=== PATIENT | female | born 1950 | race Caucasian/White ===

== ENCOUNTER → 2016-06-04 | Outpatient (REF) | payer MEDICARE, MEDICAID ==
[~2016-06-04] MED LIST: BACL10TA2 PO; BACT800T5 PO; CALCTAB41 PO; COLA100C PO; COUM1TAB17 PO; COUM2.5T11 PO; CRES20TA PO; ERYT5OPO OD; FURO40TA2 PO; LEVO500T32 PO; LISI-538 PO; METO-346 PO; METO25TAB PO; RAMI10CA PO; ROPI0.25 PO; ROSU10TA PO; SERT50TA; TRAM50TA2 PO; VALA1TAB PO; VITA-122 PO; ZOLO100T PO
[2016-06-04 11:32] LABS: BASO % 0.5 % (0.0-1.0); EOS # 0.2 K/mm3 (0.0-0.50); EOS % 2.6 % (0.0-3.0); LARGE UNSTAINED CELL # 0.1 K/mm3 (0.0-0.4); LARGE UNSTAINED CELL % 1.6 % (0.0-4.0); LYMPH # 1.6 K/mm3 (1.5-4.5); LYMPH % 24.7 % (24.0-44.0); MEAN CORPUSCULAR HEMOGLOBIN 28.6 pg (27.0-33.0); MEAN CORPUSCULAR VOLUME 89.2 fl (80.0-96.0); MONO # 0.3 K/mm3 (0.0-0.8); MONO % 4.9 % (0.0-5.0); NEUTROPHILS # 4.3 K/mm3 (1.8-7.7); NEUTROPHILS % 65.8 % (36.0-66.0); PLATELET COUNT, AUTOMATED 321 k/mm3 (150-450); RED CELL DISTRIBUTION WIDTH 13.7 % (11.5-14.5); WHITE BLOOD COUNT 6.5 K/mm3 (4.0-10.0)
[2016-06-04 11:39] LABS: INR 2.66
[2016-06-04 11:54] LABS: ANION GAP 10 MEQ/L (8-16); BLOOD UREA NITROGEN 20 MG/DL (7-18); CALCIUM LEVEL 8.4 MG/DL (8.8-10.2); CARBON DIOXIDE LEVEL 28 MEQ/L (21-32); CHLORIDE LEVEL 104 MEQ/L (98-107); CREATININE FOR GFR 0.91 MG/DL (0.55-1.02); GLOMERULAR FILTRATION RATE > 60.0 (>45); GLUCOSE, FASTING 143 MG/DL (80-110); POTASSIUM SERUM 4.1 MEQ/L (3.5-5.1); SODIUM LEVEL 142 MEQ/L (136-145)
== END ==
LOC: M LAB REF 11:03
PROVIDERS: ATTEND Surgery Vascular Surgery
DX: R94.4 Abnormal results of kidney function studies (principal)

== ENCOUNTER → 2016-06-16 | Outpatient (REF) | payer MEDICARE, MEDICAID | LOC: M LAB REF 16:39 | PROVIDERS: ATTEND Surgery | DX: I87.311 Chronic venous hypertension (idiopathic) with ulcer of right lower extremity (principal) ==

== ENCOUNTER → 2016-07-30 | Outpatient (CLI) | payer MEDICARE, MEDICAID ==
[~2016-07-30] MED LIST changes: -COLA100C PO; +COLA100C3 PO; +CRES10TA32 PO; +GASTROGRAFIN SOLUTION 30ML (Q9963) As Ordered ONE; +ISOVUE-370 76% 100ML VIAL (Q9967) As Ordered ONE; -ROSU10TA PO
--- NOTE | 2016-07-30 15:21 | REP ---
REASON: History of neoplasm left kidney. COMPARISON: None. CONTRAST: 100 mL Isovue 370. In the left lung base there is a 6 mm sized nodule. There are no pleural or pericardial effusions. There is cardiomegaly. The precontrast enhanced portion of the exam shows hepatic and splenic densities to within normal limits. There is what appears to be a staghorn calculus in the markedly atrophic right kidney. There are no choleliths or left nephroliths. There are no proximal ureteroliths. The contrast enhanced portion of the examination shows the liver, gallbladder, spleen, pancreas, adrenal glands, and left kidney to be within normal limits. The right kidney is markedly atrophic and arising from the posterior cortex of the interpolar region. There is a 1.7 x 2 x 1.4 cm sized irregularly enhancing nodule. The abdominal aorta and paraaortic regions are within normal limits. The bowel loops and their mesenteries are within normal limits. No free fluid or free air is seen in the abdomen. CT PELVIS: The bowel loops and their mesenteries are within normal limits. There is no evidence of a pelvic mass or adenopathy. There is no free pelvic fluid or air. Bone window technique throughout the exam shows the osseous structures to be within normal limits for the patient's age. IMPRESSION: 1. Irregularly enhancing right renal nodule as described above suspicious for neoplasm. 2. Other findings involving the right kidney as described above. 3. There is a nodule in the left lower lobe as described above, however, review of previous CT of the chest of 11/02/2012 from [facility] shows this nodule to be completely stable. According to the revised Fleischner's Society criteria yearly CT screening is recommended provided the patient's risk factors are high. 4. Other findings as described above. Signed by Yeison French DO 07/30/2016 03:37 P
== END ==
LOC: M RAD 10:34
PROVIDERS: ATTEND Internal Medicine Nephrology
DX: D41.02 Neoplasm of uncertain behavior of left kidney (principal); R91.8 Other nonspecific abnormal finding of lung field
CPT/HCPCS: 74178; Q9963; Q9967

== ENCOUNTER → 2016-09-11 | Outpatient (CLI) | payer MEDICARE, MEDICAID ==
[~2016-09-11] MED LIST changes: +ASPI325T PO; -GASTROGRAFIN SOLUTION 30ML (Q9963) As Ordered ONE; -ISOVUE-370 76% 100ML VIAL (Q9967) As Ordered ONE; +VITA-121 PO; +VITA-130 PO
--- NOTE | 2016-09-11 15:43 | REP ---
RIGHT LOWER EXTREMITY DUPLEX DOPPLER VENOUS ULTRASOUND WITH EVALUATION FOR VENOUS REFLUX: Real-time sonographic compression and duplex Doppler interrogation of the right lower extremity deep vein system is performed. The right common femoral, superficial femoral, and popliteal veins are fully compressible with transducer pressure and demonstrate normal spontaneous and phasic flow without evidence of deep venous thrombosis. Multiple lymph nodes are seen in the right inguinal region, largest measuring 3.5 x 0.6 x 2.5 cm. Bandaging material is present over the right calf. Evaluation for venous reflux demonstrates no reflux in the common femoral, superficial femoral, or popliteal veins. There is no reflux in the greater saphenous vein centrally at the saphenofemoral junction, the vessel meauring 6 mm in diameter. Mid to distal greater saphenous vein has been previously removed. There is no reflux in the lesser saphenous vein which measures 2 mm. Signed by Tiburcio Infante MD 09/11/2016 04:46 P
== END ==
LOC: M RAD 12:14
PROVIDERS: ATTEND Surgery
DX: I87.311 Chronic venous hypertension (idiopathic) with ulcer of right lower extremity (principal)

== ENCOUNTER 2016-09-15 09:21 | Inpatient (IN) | payer MEDICARE, MEDICAID ==
[~2016-09-15] VITALS: Ht 152.4 cm; Wt 100.7 kg
[~2016-09-15 09:21] MED LIST changes: -ASPI325T PO; -COLA100C3 PO; +COLA100C5 PO; -COUM2.5T11 PO; +COUM2.5T17 PO; +LEVO500T3 PO; -LEVO500T32 PO; -VALA1TAB PO; +VALA1TAB2 PO; -VITA-121 PO; -VITA-130 PO
[2016-09-15 10:18] LABS: INR 2.86
[2016-09-15] MEDS ORDERED: MIDAZOLAM INJ 2 MG/2 ML VIAL (J2250) As Ordered ONE ×2 (10:45→12:18)
[2016-09-15] MEDS ORDERED: fentaNYL 100 MCG/2 ML INJECTION (J3010) As Ordered ONE ×2 (10:46→12:18)
[2016-09-15] MEDS ORDERED: HEPARIN 1,000 UNITS/ML 10ML VIAL (FOR RADIOLOGY& DIALYSIS ONLY) As Ordered ONE (10:47)
[2016-09-15] MEDS ORDERED: ISOVUE-300 61% 50ML VIAL (Q9967) As Ordered ONE (10:47)
[2016-09-15] MEDS ORDERED: PHYTONADIONE 10MG/ML INJECTION (J3430) IV ONE (12:00)
[2016-09-15] MEDS ORDERED: MORPHINE 10 MG/ML 1ML VIAL As Ordered ONE (12:53)
[2016-09-15] MEDS ORDERED: ACETAMINOPHEN TAB 650MG DOSE (2X325MG) PO PRN (13:15)
[2016-09-15] MEDS ORDERED: MOM 30ML SUSPENSION UDC PO PRN (13:15)
[2016-09-15] MEDS ORDERED: PROMETHAZINE INJ 25 MG/ML VIAL (J2550) IV PRN (13:15)
[2016-09-15] MEDS ORDERED: BISACODYL 10 MG SUPP PR PRN (13:15)
[2016-09-15 13:58] LABS: BASO % 0.3 % (0.0-1.0); EOS # 0.1 K/mm3 (0.0-0.50); EOS % 1.9 % (0.0-3.0); LARGE UNSTAINED CELL # 0.1 K/mm3 (0.0-0.4); LARGE UNSTAINED CELL % 1.3 % (0.0-4.0); LYMPH # 1.7 K/mm3 (1.5-4.5); LYMPH % 20.9 % (24.0-44.0); MEAN CORPUSCULAR HEMOGLOBIN 26.5 pg (27.0-33.0); MEAN CORPUSCULAR HGB CONC 31.2 g/dl (32.0-36.5); MEAN CORPUSCULAR VOLUME 84.8 fl (80.0-96.0); MONO # 0.4 K/mm3 (0.0-0.8); MONO % 5.6 % (0.0-5.0); NEUTROPHILS # 5.3 K/mm3 (1.8-7.7); PLATELET COUNT, AUTOMATED 485 k/mm3 (150-450); RED CELL DISTRIBUTION WIDTH 13.8 % (11.5-14.5); WHITE BLOOD COUNT 7.6 K/mm3 (4.0-10.0)
[2016-09-15] MEDS ORDERED: NALBUPHINE HCL 10 MG/ML AMP (J2300) IV PRN (14:00)
[2016-09-15] MEDS ORDERED: MORPHINE 1MG/ML IN 0.9% NACL 100ML IV BAG IV PRN (14:00)
[2016-09-15] MEDS ORDERED: ONDANSETRON 4MG/2ML VIAL (J2405) IV PRN (14:00)
[2016-09-15] MEDS ORDERED: EPIDURAL/PCA KEYS XX PRN (14:00)
[2016-09-15] MEDS ORDERED: NALOXONE INJ 0.4 MG/1 ML VIAL (J2310) IV PRN (14:00)
[2016-09-15] MEDS ORDERED: diphenhydrAMINE INJ 50MG/ML VIAL (J1200) IV PRN (14:00)
[2016-09-15 14:43] LABS: ALBUMIN 2.9 GM/DL (3.2-5.2); ALBUMIN/GLOBULIN RATIO 0.76 (1.00-1.93); BILIRUBIN,TOTAL 0.3 MG/DL (0.2-1.0); CALCIUM LEVEL 8.7 MG/DL (8.8-10.2); CREATININE FOR GFR 1.02 MG/DL (0.55-1.02); GLOMERULAR FILTRATION RATE 58.1 (>45); POTASSIUM SERUM 4.1 MEQ/L (3.5-5.1); TOTAL PROTEIN 6.7 GM/DL (6.4-8.2)
[2016-09-15] MEDS ORDERED: MORPHINE 2 MG/ML 1ML SYRINGE IV PRN (17:15)
[2016-09-15] MEDS ORDERED: MORPHINE 10 MG/ML 1ML VIAL IV ONE (17:15)
[2016-09-15 20:00] VITALS: BP 174/77
[2016-09-15] MEDS ORDERED: METO25TA4 PO (20:46)
[2016-09-15] MEDS ORDERED: COUM1TAB17 PO (20:46)
[2016-09-15] MEDS ORDERED: COUM2.5T17 PO (20:46)
[2016-09-15] MEDS ORDERED: VITA-121 PO (20:48)
[2016-09-15] MEDS ORDERED: VITA500T PO (20:48)
[2016-09-15] MEDS ORDERED: ASPI325T PO (20:48)
--- NOTE | 2016-09-15 20:55 | REP ---
Clinical: Preoperative assessment . Comparison: 06/03/2009 . Technique: AP and lateral. Findings: The mediastinum and cardiac silhouette are normal. Airway is patent and midline. The lung diez are clear and without acute consolidation, effusion, or pneumothorax. The skeletal structures are intact and normal. Impression: 1. No acute cardiopulmonary process. Signed by Cl Dhillon MD 09/15/2016 08:47 P
[2016-09-15 21:00] VITALS: BP 140/78
[2016-09-15] MEDS: SENOKOT S TAB PO SCH (21:10)
[2016-09-15] MEDS: DOCUSATE SODIUM 100 MG CAP PO SCH (21:10)
[2016-09-16] MEDS: MORPHINE 2 MG/ML 1ML SYRINGE IV PRN ×5 (01:27→21:01)
[2016-09-16 02:00] VITALS: BP 159/75
[2016-09-16] MEDS: NORCO, ANEXSIA 5/325MG TABLET (HYDROcodone/ACETAMINOPHEN) PO PRN ×3 (02:57→21:57)
[2016-09-16 06:00] VITALS: BP 182/90
[2016-09-16] MEDS ORDERED: LISINOPRIL 20 MG TAB PO ONE (06:10)
[2016-09-16] MEDS ORDERED: METOPROLOL TART 25 MG TABLET PO ONE (06:10)
--- NOTE | 2016-09-16 07:57 | ECGEPIP ---
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
[2016-09-16] MEDS ORDERED: CALCIUM/VITAMIN D 500 MG TAB PO SCH (09:00)
[2016-09-16] MEDS: ASPIRIN 325 MG TAB PO SCH (09:09)
[2016-09-16] MEDS: SENOKOT S TAB PO SCH ×2 (09:10→21:02)
[2016-09-16] MEDS: rOPINIRole 0.25 MG TAB(REQUIP) PO SCH (09:10)
[2016-09-16] MEDS: FUROSEMIDE 40 MG TAB PO SCH (09:10)
[2016-09-16] MEDS: DOCUSATE SODIUM 100 MG CAP PO SCH ×2 (09:10→21:02)
[2016-09-16] MEDS: BACLOFEN 10 MG TAB PO SCH ×2 (09:10→21:02)
[2016-09-16 10:00] VITALS: BP 129/63
[2016-09-16 12:32] LABS: INR 2.49
[2016-09-16 14:00] VITALS: BP 123/58
[2016-09-16 18:00] VITALS: BP 135/65
--- NOTE | 2016-09-16 20:08 | HPE ---
DATE OF ADMISSION: 09/16/2016 CHIEF COMPLAINT: Right lower extremity atherosclerotic occlusive disease with pain and non healing wounds. HISTORY OF PRESENT ILLNESS: Patient is a 66-year-old female with swelling and chronic venous hypertension in the lower extremities, who developed a wound in the right lower extremity and was subsequently referred for vascular surgical evaluation in [place]. The patient subsequently underwent an angiogram with angioplasty and stenting of the right superficial femoral and popliteal veins. This was successful for approximately two weeks after which the pain returned in the right lower extremity. Patient was reevaluated in [place] and felt to require no further intervention. The patient was evaluated by myself and felt to require a repeat angiogram to evaluate this in flow into the right lower extremity. The patient notes that the pain has been worsening over the last few weeks and the patient follows up with Dr. Ambrosio for her wound care and he notes that the wound has also showed some signs of regression. Patient presented for an angiogram with possible angioplasty and stent on 09/15/2016. The angiography showed the occlusion of the stents and the SFA and popliteal artery with reconstitution of the below knee popliteal artery. Attempts were made to recannulize through the occluded stents and reentry into the below knee popliteal artery without success at which point the recommendation was made to the patient to be admitted to the hospital and undergo right lower extremity revascularization with bypass grafting from the femoral artery to the below knee popliteal artery. Patient agreed and was admitted to the hospital on 09/15/2016. PAST MEDICAL HISTORY: 1. Left renal mass. 2. Right atrophic kidney with staghorn calculus diagnosed on CT scan. 3. 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 4. Right-sided facial herpes zoster with periorbital cellulitis. 5. Right lower extremity venous stasis ulcer with cultures showing enterococcus faecalis and pseudomonas. 6. Dyslipidemia. 7. Hypertension. 8. Carotid artery stenosis status post left carotid endarterectomy. 9. Chronic back pain. 10. Right knee fracture. 11. Aortic valve disease. 12. Atrial fibrillation. PAST SURGICAL HISTORY: 1. Left carotid endarterectomy. 2. Right lower extremity vein stripping. FAMILY HISTORY: Significant with father with coronary artery disease and siblings with history of cancer and diabetes mellitus. SOCIAL HISTORY: Patient acknowledges previous tobacco use and quit approximately 10 years ago. MEDICATIONS: Acetaminophen, ascorbic acid, aspirin, baclofen, Dulcolax suppository, calcium, vitamin D, Lasix, lisinopril, metoprolol, rosuvastatin, sertraline, Coumadin. Please see the medical reconciliation for dosing information. ALLERGIES: PENICILLIN which causes lip swelling. REVIEW OF SYSTEMS: HEENT: Patient has a history of aphasia. Patient also has history of cataracts. NEUROLOGIC: Patient has a history of restless leg syndrome and a cerebral vascular accident which resulted in residual right-sided weakness and aphasia and dysarthria. CARDIOVASCULAR: Aortic valve disease and atrial fibrillation. PULMONARY: Patient denies. GI: Obesity. : Atrophic right kidney with staghorn calculus. Left renal mass. MUSCULOSKELETAL : Negative. PSYCHOSOCIAL: Negative. LYMPHOPOIETIC: Negative. SKIN AND INTEGUMENTARY: Negative. PHYSICAL EXAMINATION: Afebrile. Vital signs stable. NEUROLOGIC: Awake, alert, oriented times three with right-sided paresis and difficulty speaking due to dysphasia dysarthria. GENERAL: Well nourished, well developed female with some distress from right lower extremity discomfort. NECK: Supple with no carotid bruits auscultated. HEENT: No obvious abnormalities noted. Heart: Irregularly irregular with no murmurs, rubs or gallops. LUNGS: Clear to auscultation bilaterally with no rhonchi, wheezes, or crackles. ABDOMEN: Soft, non-tender, non-distended with no palpable pulsatile masses. EXTREMITIES: Upper extremities show 2+ brachial radial and ulnar pulses with good perfusion of the upper extremities. Lower extremities show 2+ femoral pulses bilaterally. The left lower extremity shows 1+ popliteal and Doppler of all dorsalis pedis and posterior tibial pulses in the left lower extremity. The right lower extremity shows Doppler of all dorsalis pedis, posterior tibial and popliteal pulses, these are none palpable in the right lower extremity. The patient has a medial malleolar ulcer which measures approximately 1.5 x 1.5 cm and approximately 0.2 cm in depth. There is fibrous exudate at the base of the wound and no signs of cellulitis. The patient has slow capillary refill with less than 5 seconds for adequate return of capillary refill with palpation. LYMPHATIC: There is no lymphadenopathy noted in the cervical, axillary or inguinal regions. SKIN: Warm, well perfused with no obvious lesions or masses noted. ASSESSMENT AND PLAN: Patient is a 66-year-old female with non healing ulcer of the right lower extremity and femoral popliteal arterial occlusive disease who previously underwent angioplasty and stenting with subsequent occlusion of the stented superficial femoral and popliteal arteries. The patient underwent angiograph with an attempt to recannulize through the occluded vessels without success and now will require revascularization of the right lower extremity with bypass grafting. Patient will be scheduled for bypass grafting of the right lower extremity in the next day or two. This plan was discussed at length with the patient, who agrees to proceed. Risks, benefits and alternatives of treatment options were discussed with the patient. Alternative treatment options included but were not limited to no intervention. Risks included but were not limited to infection, bleeding, renal failure requiring hemodialysis, possible need for further open surgical intervention, cerebral vascular accident, myocardial infarction, pulmonary embolus, deep vein thrombosis, loss of limb, loss of life and poor outcome. Patient understands and accepts these risks and wishes to proceed with revascularization of her right lower extremity with a femoral to popliteal artery bypass graft. Patient will be admitted. Her INR level will be allowed to normalize at which time she will be started on a Heparin drip for her atrial fibrillation and she will be scheduled for the right femoral to popliteal artery bypass graft.
[2016-09-16] MEDS: VITAMIN D 1,000 INTERNATIONAL UNITS TABLET PO SCH (21:02)
[2016-09-16] MEDS: SERTRALINE 100 MG TAB PO SCH (21:02)
[2016-09-16] MEDS: ROSUVASTATIN 10 MG TAB (CRESTOR) PO SCH (21:02)
[2016-09-16] MEDS: ASCORBIC ACID 500 MG TAB PO SCH (21:03)
[2016-09-16] MEDS: LISINOPRIL 20 MG TAB PO SCH (21:03)
[2016-09-16] MEDS: METOPROLOL TART 25 MG TABLET PO SCH (21:03)
[2016-09-16 22:00] VITALS: BP 200/82
[2016-09-17] VITALS (9 sets, daily range): BP systolic 108–180; BP diastolic 45–100; O2SAT 100
[2016-09-17] MEDS: MORPHINE 2 MG/ML 1ML SYRINGE IV PRN ×3 (00:57→21:37)
[2016-09-17] MEDS: NORCO, ANEXSIA 5/325MG TABLET (HYDROcodone/ACETAMINOPHEN) PO PRN (05:52)
[2016-09-17] MEDS ORDERED: LIDOCAINE 2% INJ 100 MG/5 ML SDV (FOR ANES.) As Ordered ONE (07:12)
[2016-09-17] MEDS ORDERED: PROPOFOL 200 MG/20 ML VIAL As Ordered ONE (07:12)
[2016-09-17] MEDS ORDERED: ROCURONIUM BROMIDE 50 MG/5 ML VIAL/SYRINGE As Ordered ONE ×2 (07:12→10:35)
[2016-09-17] MEDS ORDERED: ONDANSETRON 4MG/2ML VIAL (J2405) As Ordered ONE (07:12)
[2016-09-17] MEDS ORDERED: fentaNYL 100 MCG/2 ML INJECTION (J3010) As Ordered ONE (07:13)
[2016-09-17] MEDS ORDERED: MIDAZOLAM INJ 2 MG/2 ML VIAL (J2250) As Ordered ONE (07:13)
[2016-09-17] MEDS ORDERED: HEPARIN SOD (PORCINE) 5000 UNITS/ML VIAL As Ordered ONE ×3 (07:18→12:05)
[2016-09-17] MEDS ORDERED: CONRAY-60 60% 50ML VIAL (Q9961) As Ordered ONE (07:18)
[2016-09-17] MEDS ORDERED: THROMBIN SOLN 20,000 UNITS KIT As Ordered ONE (07:18)
[2016-09-17] MEDS ORDERED: LIDOCAINE 1% SDV INJ 30 ML VIAL As Ordered ONE (07:18)
[2016-09-17] MEDS ORDERED: BUPIVACAINE HCL 0.5% 30 ML VIAL As Ordered ONE (07:18)
[2016-09-17] MEDS ORDERED: CLINDAMYCIN 900 MG/50 ML PREMIX BAG As Ordered ONE (08:08)
[2016-09-17] MEDS ORDERED: ETOMIDATE INJ 20MG/10ML VIAL As Ordered ONE (08:28)
[2016-09-17] MEDS: DOCUSATE SODIUM 100 MG CAP PO SCH ×2 (09:00→20:38)
[2016-09-17] MEDS: ASPIRIN 325 MG TAB PO SCH (09:00)
[2016-09-17] MEDS: FUROSEMIDE 40 MG TAB PO SCH (09:00)
[2016-09-17] MEDS: BACLOFEN 10 MG TAB PO SCH ×2 (09:00→18:35)
[2016-09-17] MEDS: rOPINIRole 0.25 MG TAB(REQUIP) PO SCH (09:00)
[2016-09-17] MEDS: LISINOPRIL 20 MG TAB PO SCH ×2 (09:00→20:39)
[2016-09-17] MEDS: SENOKOT S TAB PO SCH ×2 (09:00→20:40)
[2016-09-17] MEDS ORDERED: SUCCINYLCHOLINE 100 MG/5 ML SYRINGE (J0330) As Ordered ONE (09:17)
[2016-09-17] MEDS ORDERED: PHENYLephrine HCL 500 MCG/5 ML (100MCG/ML) SYRINGE (J2370) As Ordered ONE ×2 (09:23→11:05)
[2016-09-17] MEDS ORDERED: fentaNYL 250 MCG/5 ML INJECTION (J3010) As Ordered ONE (09:27)
[2016-09-17] MEDS ORDERED: ePHEDrine SULFATE 25 MG/5 ML(5MG/ML) SYRINGE As Ordered ONE ×2 (10:08→12:30)
[2016-09-17] MEDS ORDERED: PHENYLEPHRINE INJ 10MG/ML VIAL (J2370) As Ordered ONE (10:22)
[2016-09-17] MEDS ORDERED: SUGAMMADEX SODIUM 500 MG/5 ML VIAL (BRIDION) As Ordered ONE (12:38)
[2016-09-17] MEDS ORDERED: BACITRACIN OINT 30GM As Ordered ONE (12:41)
[2016-09-17] MEDS ORDERED: METOPROLOL 5 MG/5 ML VIAL As Ordered ONE (13:07)
[2016-09-17] MEDS ORDERED: ONDANSETRON 4MG/2ML VIAL (J2405) IV PRN (13:45)
[2016-09-17] MEDS ORDERED: fentaNYL 100 MCG/2 ML INJECTION (J3010) IV PRN (13:45)
[2016-09-17] MEDS ORDERED: LR 1,000 ML IV SCH ×2 (13:45→16:00)
[2016-09-17] MEDS: METOPROLOL TART 25 MG TABLET PO SCH ×2 (15:14→22:59)
--- NOTE | 2016-09-17 17:12 | RO ---
DATE OF PROCEDURE: 09/15/2016 PREPROCEDURE DIAGNOSES: Nonhealing right lower extremity venous stasis ulcer. Right femoral popliteal arterial occlusive disease status-post angioplasty and stenting. Right lower extremity rest pain. POSTPROCEDURE DIAGNOSES: Nonhealing right lower extremity venous stasis ulcer. Right femoral popliteal arterial occlusive disease status-post angioplasty and stenting. Right lower extremity rest pain. Plus occluded right superficial femoral and popliteal artery stents. PROCEDURE: Aortogram, iliofemoral angiogram, selective right common femoral artery catheter placement with angiogram and runoff, selective right superficial femoral artery catheter placement with angiogram runoff, selective right popliteal artery catheter placement with angiogram and runoff, Mynx closure of the left common femoral arteriotomy. SURGEON: Dr. Jayy Parks. WILDLIFE POLICY PROFESSIONAL: EJ Hatfield and EJ Pope ANESTHESIA: Local with sedation with 3 mg of Versed, 150 mcg of Fentanyl and 10 mL of 2% lidocaine. ESTIMATED BLOOD LOSS: FLUORO TIME: 10.3 minutes. CONTRAST: 19 mL. SEDATION TIME: From 11:35 a.m. to 12:30 p.m. with the sedation and cardiopulmonary monitoring performed by the nurse in the room under my direct supervision. I was present for and directed the entire case. COMPLICATIONS: None. DRAINS: None. SPECIMENS: None. IMPLANTS: Left common femoral arterial closure with a Mynx closure device. INDICATION: Patient is a 66-year-old female with nonhealing ulcer in the right lower extremity. The etiology of which is venous insufficiency. The patient has previously undergone right lower extremity angiogram with angioplasty and stenting of her superficial femoral and popliteal arteries. Patient had good relief of her ischemia with no symptoms for 2-3 weeks after which she developed recurrent pain in the right lower extremity with decreased profusion and her venous stasis ulcer has actually increased in size. Patient will undergo a right lower extremity angiogram with possible angioplasty and or stent. Patient also has morbid obesity with a body mass index (BMI) of 48.8. Risks, benefits, and alternative treatment options were discussed with the patient. Alternative treatment options included but were not limited to no intervention. Risks included but were not limited to infection, bleeding, renal failure, requiring hemodialysis, possible need for open surgical intervention, retroperitoneal hematoma, cerebrovascular accident, myocardial infarction, pulmonary embolus, deep venous thrombosis (DVT), loss of limb, loss of life, and poor outcome. Patient understands, accepts these risks and consents to proceed. PROCEDURE: The patient was taken to operating room, placed supine on the angiography room table and prepped and draped in the standard surgical fashion. The time out was performed confirming the proper procedure and patient identification after which the left common femoral artery was cannulated with a micropuncture needle after anesthetizing the overlying skin with 1% lidocaine. The micropuncture wire was advanced through the micropuncture needle which was upsized to a micropuncture sheath. A Bentson wire was advanced through the micropuncture sheath which was upsized to a #5-Romanian sheath. An Omniflush catheter was placed in the aorta and an aortogram was performed. Catheter was pulled down to the level of the bifurcation of the iliac arteries and an iliofemoral angiogram was performed. Catheter was directed over the bifurcation and placed in the right common femoral artery and a right lower extremity angiogram was performed. This showed occlusion of the previously stented superficial femoral and popliteal artery. A #5-Romanian sheath was upsized to a #5 Romanian up and over the bifurcation sheath which was placed in the right common femoral artery. An angled Glidewire and Trent catheter were then used to traverse into the superficial femoral artery and cross through the occluded stents. The catheter was placed in the superficial femoral artery. An angiogram was performed confirming positioning within the superficial femoral. The catheter and wire were then further passed through the remainder of the superficial femoral artery and into the popliteal artery and an angiogram was performed with the catheter in the popliteal artery. The popliteal artery was occluded just distal to the stent in the popliteal artery and reentry into the hughes popliteal artery was never achieved and there was no endovascular procedure that could be performed due to not being able to reenter into the hughes system. This was attempted multiple times without success and a dissection plane was created after which the procedure was terminated. The catheters and wires were removed and a Mynx closure device was used to close the arteriotomy in the left common femoral artery with an additional 15 minutes of adjunctive pressure applied for hemostasis. Dressings were then applied. Patient tolerated the procedure well. All instrument, sponge and needle counts were correct at the end of the case. There were no complications. Dr. Parks was present for and directed the entire case. Patient was transferred to the holding area and subsequently admitted to the hospital and will require a right lower extremity bypass for revascularization of her severely ischemic right lower extrmeity. RADIOLOGIC SUPERVISION INTERPRETATION: The initial aortogram showed the suprarenal aorta to be patent. The celiac and superior mesenteric arteries were patent as well as both renal arteries. The infrarenal aorta was widely patent on the iliofemoral angiogram. The left common iliac, external iliac, internal iliac, and proximal superficial femoral and profunda femoris arteries as well as the common femoral artery were widely patent. There was no visualization of the left lower extremity below the puncture site. The right common iliac, external iliac, and internal iliac were patent. The common femoral artery showed some minor luminal irregularity but no specific stenosis or occlusions were noted. The profunda femoris on the right was widely patent. Catheter was placed in the right common femoral artery and a right lower extremity angiogram was performed which showed the superficial femoral artery to have diffuse narrowing along it course proximally with approximately 60-710% stenosis in the proximal superficial femoral artery. The superficial femoral artery was patent to the midthigh where there was occlusion of the superficial femoral artery with the previously placed stents being occluded in the superficial femoral and popliteal arteries. These were entered with a Trent catheter with an attempt to recannulate and cross through the occluded stent and into the hughes popliteal artery. This was achieved down to the level of the distal portion of the stent in the popliteal artery but there was never any reentry into the hughes popliteal artery and the procedure was terminated. The runoff below the knee was via a patent popliteal artery with anterior tibia, posterior tibial, and peroneal artery outflow to the midcalf with no visualization distal to this due to contrast washout. A Mynx closure device was used to close the arteriotomy in the left common femoral artery.
[2016-09-17] MEDS: VITAMIN D 1,000 INTERNATIONAL UNITS TABLET PO SCH (20:38)
[2016-09-17] MEDS: ROSUVASTATIN 10 MG TAB (CRESTOR) PO SCH (20:38)
[2016-09-17] MEDS: SERTRALINE 100 MG TAB PO SCH (20:40)
[2016-09-17] MEDS: ASCORBIC ACID 500 MG TAB PO SCH (20:40)
[2016-09-18] VITALS: BP 133/61
[2016-09-18] MEDS: MORPHINE 2 MG/ML 1ML SYRINGE IV PRN ×5 (00:29→22:08)
[2016-09-18 04:00] VITALS: BP 124/50
[2016-09-18 05:43] LABS: MEAN CORPUSCULAR HEMOGLOBIN 26.3 pg (27.0-33.0); MEAN CORPUSCULAR HGB CONC 30.9 g/dl (32.0-36.5); WHITE BLOOD COUNT 12.7 K/mm3 (4.0-10.0)
[2016-09-18 06:07] LABS: INR 1.57
[2016-09-18 07:22] LABS: ANION GAP 10 MEQ/L (8-16); BLOOD UREA NITROGEN 13 MG/DL (7-18); CALCIUM LEVEL 7.8 MG/DL (8.8-10.2); CARBON DIOXIDE LEVEL 26 MEQ/L (21-32); CHLORIDE LEVEL 105 MEQ/L (98-107); CREATININE FOR GFR 0.91 MG/DL (0.55-1.02); GLOMERULAR FILTRATION RATE > 60.0 (>45); GLUCOSE, FASTING 160 MG/DL (80-110); POTASSIUM SERUM 4.1 MEQ/L (3.5-5.1); SODIUM LEVEL 141 MEQ/L (136-145)
[2016-09-18 08:00] VITALS: BP 109/55; O2SAT 98
[2016-09-18] MEDS: NORCO, ANEXSIA 5/325MG TABLET (HYDROcodone/ACETAMINOPHEN) PO PRN ×3 (08:26→23:37)
[2016-09-18] MEDS: rOPINIRole 0.25 MG TAB(REQUIP) PO SCH (08:27)
[2016-09-18] MEDS: CALCIUM/VITAMIN D 500 MG TAB PO SCH (08:27)
[2016-09-18] MEDS: ASPIRIN 325 MG TAB PO SCH (08:27)
[2016-09-18] MEDS: DOCUSATE SODIUM 100 MG CAP PO SCH ×2 (08:27→22:08)
[2016-09-18] MEDS: BACLOFEN 10 MG TAB PO SCH ×2 (08:27→22:08)
[2016-09-18] MEDS: FUROSEMIDE 40 MG TAB PO SCH (08:28)
[2016-09-18] MEDS: METOPROLOL TART 25 MG TABLET PO SCH ×2 (08:28→22:09)
[2016-09-18] MEDS: SENOKOT S TAB PO SCH ×2 (08:28→22:09)
--- NOTE | 2016-09-18 09:30 | RO ---
DATE OF PROCEDURE: 09/17/2016 PREPROCEDURE DIAGNOSES: Morbid obesity with a BMI of 48.8, right lower extremity ischemic, right lower extremity nonhealing venous stasis ulcers, right lower extremity chronic venous hypertension, ulceration at the tip of the right fourth toe, ulceration and discoloration at the tip of the right second toe, limb threatening ischemia with rest pain right lower extremity, atherosclerotic arterial occlusive disease with femoral popliteal arterial occlusive disease and tibial peroneal arterial occlusive disease. POSTPROCEDURE DIAGNOSES: Morbid obesity with a BMI of 48.8, right lower extremity ischemic, right lower extremity nonhealing venous stasis ulcers, right lower extremity chronic venous hypertension, ulceration at the tip of the right fourth toe, ulceration and discoloration at the tip of the right second toe, limb threatening ischemia with rest pain right lower extremity, atherosclerotic arterial occlusive disease with femoral popliteal arterial occlusive disease and tibial peroneal arterial occlusive disease. PROCEDURE: Ultrasound guided left cephalic vein micropuncture catheter placement for IV use, right common femoral arterial to below knee popliteal artery bypass graft with 6 mm Propaten inner ring bypass graft. SURGEON: Dr. Jayy Parks. AUTOCUTTER: None. ANESTHESIA: General endotracheal. ESTIMATED BLOOD LOSS: 350 mL. IV FLUID: 2000 mL heparin 5000 units initially followed by 3000 unit bolus times two, Protamine 50 mg. URINE OUTPUT: 500 mL via Fernandes. COMPLICATIONS: None. DRAINS: None. SPECIMENS: None. IMPLANTS: 6 mm Propaten inner ring PTFE graft from the right common femoral artery just above the junction of the superficial femoral and profunda femoris arteries to the below knee popliteal artery. INDICATION: Patient is a 66-year-old female with previous cerebrovascular accident and venous stasis ulcers in the right lower extremity which have been nonhealing. The patient underwent angiography with placement of stents in the right popliteal and superficial femoral arteries which subsequently occluded and underwent attempted revascularization intravascularly without success. The patient now requires open femoral to popliteal artery bypass grafting for revascularization of her right lower extremity for limb salvage and healing of the venous stasis ulcers. Risks, benefits, and alternative treatment options were discussed with the patient. Alternative treatment options included but were not limited to no intervention. Risks included but were not limited to infection, bleeding, renal failure requiring hemodialysis, possible need for further open surgical intervention, cerebrovascular accident, myocardial infarction, pulmonary embolus, deep venous thrombosis (DVT), loss of limb, loss of life and poor outcome. Patient understands, accepts these risks and consents to proceed. PROCEDURE: The patient was taken to the operating room and placed supine on the operating room table and there was difficulty starting an IV. The left arm in the antecubital fossa region was evaluated with ultrasound which showed a good cephalic and cephalic veins. The left antecubital fossa region was prepped and draped in the standard surgical fashion. The ultrasound was used to guide cannulation to the left cephalic vein with a micropuncture needle after anesthetizing the overlying skin with 1% lidocaine. The micropuncture wire was advanced through the micropuncture needle which was upsized to a micropuncture sheath which remained in the cephalic vein for IV use during the procedure and postoperatively. Dressings were applied and the IV hooked and used for intraoperative fluid management. Once the IV was started, the patient was then prepped and draped in a standard surgical fashion. A time out was performed confirming the appropriate procedure and correct patient, after which an incision was made in the inguinal region overlying the right common femoral artery. The right common femoral, superficial femoral and profunda femoris arteries were sharply dissected free and encircled with vessel loops. The below knee popliteal artery was then exposed through an incision in the below knee region and encircled with vessel loops. The patient was given 5000 units of heparin after which a 6 mm PTFE Propaten graft was tunneled from the common femoral artery wound to the below knee popliteal artery wound. The graft was then anastomosed to the common femoral artery. After an arteriotomy was made, there was a large amount of posterior plaque noted in the common femoral artery and extending into the superficial femoral and profunda femoris arteries. The graft was anastomosed to the common femoral artery in an end to side fashion using #6-0 Prolene suture. The graft was flushed, then anastomosed to the below knee popliteal artery in an end to side fashion. There was significant plaque in the popliteal artery which was fragile and fractured with placing sutures through the plaque and arterial wall. This was debrided gently. The anastomosis was completed and flow was re-established through the graft with good flow noted in the popliteal artery on Doppler ultrasound evaluation. Protamine was given to reverse the heparin effect after which the incisions were closed using #2-0 Vicryl to approximate the deeper layers and carolyn to approximate the skin. Thrombin and Gelfoam were placed around the anastomoses of the graft to the common femoral and popliteal arteries. Dressings were applied. The venous stasis ulcers in the lower extremity were also gently debrided using mechanical debridement with a gauze for removal of nonviable slough and tissue. The wounds were then covered with bacitracin and dry dressings and then wrapped with a Kerlix. All instrument, sponge and needle counts were correct at the end of the case. There were no complications. Dr. Parks was present for and directed the entire case. Patient was transferred to the recovery room awake, alert, extubated and in stable condition.
[2016-09-18] MEDS: LISINOPRIL 20 MG TAB PO SCH ×2 (09:43→22:09)
[2016-09-18 10:15] VITALS: BP 109/57
[2016-09-18 14:00] VITALS: BP 119/54
[2016-09-18 22:00] VITALS: BP 123/58
[2016-09-18] MEDS: VITAMIN D 1,000 INTERNATIONAL UNITS TABLET PO SCH (22:08)
[2016-09-18] MEDS: ASCORBIC ACID 500 MG TAB PO SCH (22:08)
[2016-09-18] MEDS: ROSUVASTATIN 10 MG TAB (CRESTOR) PO SCH (22:09)
[2016-09-18] MEDS: SERTRALINE 100 MG TAB PO SCH (22:10)
[2016-09-19 06:00] VITALS: BP 138/68
[2016-09-19] MEDS: NORCO, ANEXSIA 5/325MG TABLET (HYDROcodone/ACETAMINOPHEN) PO PRN ×3 (06:47→23:29)
[2016-09-19 06:58] LABS: MEAN CORPUSCULAR HEMOGLOBIN 26.9 pg (27.0-33.0); MEAN CORPUSCULAR HGB CONC 31.5 g/dl (32.0-36.5); MEAN CORPUSCULAR VOLUME 85.3 fl (80.0-96.0); RED CELL DISTRIBUTION WIDTH 14.3 % (11.5-14.5); WHITE BLOOD COUNT 13.7 K/mm3 (4.0-10.0)
[2016-09-19 07:07] LABS: INR 1.4
[2016-09-19 07:22] LABS: ANION GAP 10 MEQ/L (8-16); BLOOD UREA NITROGEN 19 MG/DL (7-18); CALCIUM LEVEL 8.1 MG/DL (8.8-10.2); CARBON DIOXIDE LEVEL 26 MEQ/L (21-32); CHLORIDE LEVEL 104 MEQ/L (98-107); CREATININE FOR GFR 0.94 MG/DL (0.55-1.02); GLOMERULAR FILTRATION RATE > 60.0 (>45); GLUCOSE, FASTING 188 MG/DL (80-110); POTASSIUM SERUM 4.1 MEQ/L (3.5-5.1); SODIUM LEVEL 140 MEQ/L (136-145)
[2016-09-19] MEDS: CALCIUM/VITAMIN D 500 MG TAB PO SCH (08:57)
[2016-09-19] MEDS: BACLOFEN 10 MG TAB PO SCH ×2 (08:57→22:19)
[2016-09-19] MEDS: METOPROLOL TART 25 MG TABLET PO SCH ×2 (08:57→22:19)
[2016-09-19] MEDS: rOPINIRole 0.25 MG TAB(REQUIP) PO SCH (08:57)
[2016-09-19] MEDS: SENOKOT S TAB PO SCH ×2 (08:57→22:20)
[2016-09-19] MEDS: LISINOPRIL 20 MG TAB PO SCH ×2 (08:57→22:18)
[2016-09-19] MEDS: DOCUSATE SODIUM 100 MG CAP PO SCH ×2 (08:57→22:17)
[2016-09-19] MEDS: ASPIRIN 325 MG TAB PO SCH (08:57)
[2016-09-19] MEDS: FUROSEMIDE 40 MG TAB PO SCH (08:58)
[2016-09-19] MEDS: MORPHINE 2 MG/ML 1ML SYRINGE IV PRN ×3 (10:23→22:38)
[2016-09-19] MEDS ORDERED: HEPARIN (FLUSH) 100 UNITS in SODIUM CHLORIDE 0.45% 99 ML IV SCH (11:15)
[2016-09-19] MEDS: HEPARIN DRIP 25,000 UNITS in APPROPRIATE DILUENT 1 EA IV SCH (12:15)
[2016-09-19 14:00] VITALS: BP 112/51
[2016-09-19] MEDS: WARFARIN SOD 5 MG TAB PO SCH (16:54)
[2016-09-19 22:00] VITALS: BP 128/59
[2016-09-19] MEDS: ASCORBIC ACID 500 MG TAB PO SCH (22:16)
[2016-09-19] MEDS: SERTRALINE 100 MG TAB PO SCH (22:16)
[2016-09-19] MEDS: ROSUVASTATIN 10 MG TAB (CRESTOR) PO SCH (22:17)
[2016-09-19] MEDS: VITAMIN D 1,000 INTERNATIONAL UNITS TABLET PO SCH (22:19)
[2016-09-20 06:00] VITALS: BP 112/59
[2016-09-20 06:13] LABS: MEAN CORPUSCULAR HEMOGLOBIN 26.6 pg (27.0-33.0); MEAN CORPUSCULAR HGB CONC 31.3 g/dl (32.0-36.5); RED CELL DISTRIBUTION WIDTH 13.8 % (11.5-14.5); WHITE BLOOD COUNT 10.8 K/mm3 (4.0-10.0)
[2016-09-20] MEDS: HEPARIN DRIP 25,000 UNITS in APPROPRIATE DILUENT 1 EA IV SCH ×2 (07:37→23:01)
[2016-09-20] MEDS: DOCUSATE SODIUM 100 MG CAP PO SCH ×2 (08:48→21:26)
[2016-09-20] MEDS: ASPIRIN 325 MG TAB PO SCH (08:48)
[2016-09-20] MEDS: BACLOFEN 10 MG TAB PO SCH ×2 (08:49→21:26)
[2016-09-20] MEDS: FUROSEMIDE 40 MG TAB PO SCH (08:49)
[2016-09-20] MEDS: rOPINIRole 0.25 MG TAB(REQUIP) PO SCH (08:50)
[2016-09-20] MEDS: CALCIUM/VITAMIN D 500 MG TAB PO SCH (08:50)
[2016-09-20] MEDS: SENOKOT S TAB PO SCH ×2 (08:50→21:25)
[2016-09-20] MEDS: LISINOPRIL 20 MG TAB PO SCH ×2 (08:50→21:26)
[2016-09-20] MEDS: METOPROLOL TART 25 MG TABLET PO SCH ×2 (08:50→21:26)
[2016-09-20] MEDS: MORPHINE 2 MG/ML 1ML SYRINGE IV PRN ×2 (12:20→18:40)
[2016-09-20 14:00] VITALS: BP 129/87
[2016-09-20] MEDS: WARFARIN SOD 5 MG TAB PO SCH (17:11)
[2016-09-20] MEDS: VITAMIN D 1,000 INTERNATIONAL UNITS TABLET PO SCH (21:25)
[2016-09-20] MEDS: ASCORBIC ACID 500 MG TAB PO SCH (21:26)
[2016-09-20] MEDS: SERTRALINE 100 MG TAB PO SCH (21:26)
[2016-09-20] MEDS: ROSUVASTATIN 10 MG TAB (CRESTOR) PO SCH (21:26)
[2016-09-20 22:00] VITALS: BP 138/73
[2016-09-20] MEDS: NORCO, ANEXSIA 5/325MG TABLET (HYDROcodone/ACETAMINOPHEN) PO PRN (23:05)
[2016-09-21] MEDS: MORPHINE 2 MG/ML 1ML SYRINGE IV PRN ×3 (02:42→18:42)
[2016-09-21 05:38] LABS: MEAN CORPUSCULAR HEMOGLOBIN 26.5 pg (27.0-33.0); MEAN CORPUSCULAR HGB CONC 31.2 g/dl (32.0-36.5); WHITE BLOOD COUNT 9.1 K/mm3 (4.0-10.0)
[2016-09-21 05:58] LABS: ANION GAP 6 MEQ/L (8-16); BLOOD UREA NITROGEN 18 MG/DL (7-18); CALCIUM LEVEL 8.1 MG/DL (8.8-10.2); CARBON DIOXIDE LEVEL 28 MEQ/L (21-32); CHLORIDE LEVEL 107 MEQ/L (98-107); CREATININE FOR GFR 0.77 MG/DL (0.55-1.02); GLOMERULAR FILTRATION RATE > 60.0 (>45); GLUCOSE, FASTING 178 MG/DL (80-110); POTASSIUM SERUM 4.1 MEQ/L (3.5-5.1); SODIUM LEVEL 141 MEQ/L (136-145)
[2016-09-21 06:00] VITALS: BP 126/70
[2016-09-21] MEDS: SENOKOT S TAB PO SCH ×2 (09:07→20:30)
[2016-09-21] MEDS: METOPROLOL TART 25 MG TABLET PO SCH ×2 (09:08→20:29)
[2016-09-21] MEDS: DOCUSATE SODIUM 100 MG CAP PO SCH ×2 (09:08→20:29)
[2016-09-21] MEDS: CALCIUM/VITAMIN D 500 MG TAB PO SCH (09:08)
[2016-09-21] MEDS: FUROSEMIDE 40 MG TAB PO SCH (09:08)
[2016-09-21] MEDS: LISINOPRIL 20 MG TAB PO SCH ×2 (09:08→20:29)
[2016-09-21] MEDS: rOPINIRole 0.25 MG TAB(REQUIP) PO SCH (09:08)
[2016-09-21] MEDS: BACLOFEN 10 MG TAB PO SCH ×2 (09:09→20:29)
[2016-09-21] MEDS: ASPIRIN 325 MG TAB PO SCH (09:09)
[2016-09-21 14:00] VITALS: BP 117/62
[2016-09-21 14:55] LABS: INR 1.27
[2016-09-21] MEDS: HEPARIN DRIP 25,000 UNITS in APPROPRIATE DILUENT 1 EA IV SCH (16:14)
[2016-09-21] MEDS: WARFARIN SOD 5 MG TAB PO SCH (16:15)
[2016-09-21] MEDS: ASCORBIC ACID 500 MG TAB PO SCH (20:29)
[2016-09-21] MEDS: SERTRALINE 100 MG TAB PO SCH (20:29)
[2016-09-21] MEDS: VITAMIN D 1,000 INTERNATIONAL UNITS TABLET PO SCH (20:29)
[2016-09-21] MEDS: ROSUVASTATIN 10 MG TAB (CRESTOR) PO SCH (20:29)
[2016-09-21] MEDS: NORCO, ANEXSIA 5/325MG TABLET (HYDROcodone/ACETAMINOPHEN) PO PRN (20:36)
[2016-09-21 22:00] VITALS: BP 163/82
[2016-09-22 06:00] VITALS: BP 167/82
[2016-09-22 06:51] LABS: MEAN CORPUSCULAR HEMOGLOBIN 26.5 pg (27.0-33.0); MEAN CORPUSCULAR HGB CONC 31.1 g/dl (32.0-36.5); RED CELL DISTRIBUTION WIDTH 13.7 % (11.5-14.5); WHITE BLOOD COUNT 9.7 K/mm3 (4.0-10.0)
[2016-09-22 07:07] LABS: INR 1.3
[2016-09-22] MEDS: DOCUSATE SODIUM 100 MG CAP PO SCH ×2 (09:00→21:32)
[2016-09-22] MEDS: NYSTATIN 100,000 UNITS/GM TOPICAL PWD 15 GM TOP SCH ×2 (09:00→22:06)
[2016-09-22] MEDS: HEPARIN DRIP 25,000 UNITS in APPROPRIATE DILUENT 1 EA IV SCH (09:34)
[2016-09-22] MEDS: rOPINIRole 0.25 MG TAB(REQUIP) PO SCH (09:35)
[2016-09-22] MEDS: NORCO, ANEXSIA 5/325MG TABLET (HYDROcodone/ACETAMINOPHEN) PO PRN ×2 (09:36→21:32)
[2016-09-22] MEDS: LISINOPRIL 20 MG TAB PO SCH ×2 (09:36→21:31)
[2016-09-22] MEDS: SENOKOT S TAB PO SCH ×2 (09:36→21:31)
[2016-09-22] MEDS: FUROSEMIDE 40 MG TAB PO SCH (09:37)
[2016-09-22] MEDS: ASPIRIN 325 MG TAB PO SCH (09:37)
[2016-09-22] MEDS: METOPROLOL TART 25 MG TABLET PO SCH ×2 (09:37→21:32)
[2016-09-22] MEDS: BACLOFEN 10 MG TAB PO SCH ×2 (09:37→21:32)
[2016-09-22] MEDS: CALCIUM/VITAMIN D 500 MG TAB PO SCH (09:37)
[2016-09-22 14:00] VITALS: BP 131/58
[2016-09-22] MEDS ORDERED: HEPARIN SOD (PORCINE) 5000 UNITS/ML VIAL IV PRN (16:00)
[2016-09-22] MEDS: WARFARIN SOD 5 MG TAB PO SCH (17:34)
[2016-09-22] MEDS: MORPHINE 2 MG/ML 1ML SYRINGE IV PRN (17:35)
[2016-09-22] MEDS: SERTRALINE 100 MG TAB PO SCH (21:31)
[2016-09-22] MEDS: ROSUVASTATIN 10 MG TAB (CRESTOR) PO SCH (21:31)
[2016-09-22] MEDS: ASCORBIC ACID 500 MG TAB PO SCH (21:32)
[2016-09-22] MEDS: VITAMIN D 1,000 INTERNATIONAL UNITS TABLET PO SCH (21:32)
[2016-09-22 22:00] VITALS: BP 140/76
[2016-09-23] MEDS: HEPARIN DRIP 25,000 UNITS in APPROPRIATE DILUENT 1 EA IV SCH ×2 (03:42→21:47)
[2016-09-23 06:00] VITALS: BP 146/73
[2016-09-23] MEDS: NORCO, ANEXSIA 5/325MG TABLET (HYDROcodone/ACETAMINOPHEN) PO PRN ×2 (06:59→21:52)
[2016-09-23 09:02] LABS: MEAN CORPUSCULAR HEMOGLOBIN 26.5 pg (27.0-33.0); MEAN CORPUSCULAR HGB CONC 31.3 g/dl (32.0-36.5); MEAN CORPUSCULAR VOLUME 84.9 fl (80.0-96.0); WHITE BLOOD COUNT 8.6 K/mm3 (4.0-10.0)
[2016-09-23] MEDS: CALCIUM/VITAMIN D 500 MG TAB PO SCH (09:09)
[2016-09-23] MEDS: BACLOFEN 10 MG TAB PO SCH ×2 (09:09→21:49)
[2016-09-23] MEDS: DOCUSATE SODIUM 100 MG CAP PO SCH ×2 (09:09→21:00)
[2016-09-23] MEDS: rOPINIRole 0.25 MG TAB(REQUIP) PO SCH (09:10)
[2016-09-23] MEDS: ASPIRIN 325 MG TAB PO SCH (09:10)
[2016-09-23] MEDS: METOPROLOL TART 25 MG TABLET PO SCH ×2 (09:10→22:03)
[2016-09-23] MEDS: LISINOPRIL 20 MG TAB PO SCH ×2 (09:10→22:03)
[2016-09-23] MEDS: FUROSEMIDE 40 MG TAB PO SCH (09:11)
[2016-09-23] MEDS: SENOKOT S TAB PO SCH ×2 (09:11→21:00)
[2016-09-23] MEDS: NYSTATIN 100,000 UNITS/GM TOPICAL PWD 15 GM TOP SCH ×2 (09:12→21:51)
[2016-09-23] MEDS: MORPHINE 2 MG/ML 1ML SYRINGE IV PRN ×2 (09:17→15:15)
[2016-09-23 09:57] LABS: INR 1.38
[2016-09-23 14:00] VITALS: BP 155/65
[2016-09-23] MEDS: WARFARIN SOD 5 MG TAB PO SCH (16:42)
[2016-09-23] MEDS: SERTRALINE 100 MG TAB PO SCH (21:49)
[2016-09-23] MEDS: ASCORBIC ACID 500 MG TAB PO SCH (21:49)
[2016-09-23] MEDS: ROSUVASTATIN 10 MG TAB (CRESTOR) PO SCH (21:49)
[2016-09-23] MEDS: VITAMIN D 1,000 INTERNATIONAL UNITS TABLET PO SCH (21:50)
[2016-09-23 22:00] VITALS: BP 134/62
[2016-09-24 06:00] VITALS: BP 164/60
[2016-09-24 06:05] LABS: INR 1.52
[2016-09-24] MEDS: DOCUSATE SODIUM 100 MG CAP PO SCH ×2 (09:00→20:41)
[2016-09-24] MEDS: NYSTATIN 100,000 UNITS/GM TOPICAL PWD 15 GM TOP SCH ×2 (09:00→20:42)
[2016-09-24] MEDS: SENOKOT S TAB PO SCH ×2 (09:00→20:41)
[2016-09-24] MEDS: ASPIRIN 325 MG TAB PO SCH (10:04)
[2016-09-24] MEDS: CALCIUM/VITAMIN D 500 MG TAB PO SCH (10:05)
[2016-09-24] MEDS: BACLOFEN 10 MG TAB PO SCH ×2 (10:05→20:39)
[2016-09-24] MEDS: rOPINIRole 0.25 MG TAB(REQUIP) PO SCH (10:06)
[2016-09-24] MEDS: LISINOPRIL 20 MG TAB PO SCH ×2 (10:06→20:40)
[2016-09-24] MEDS: METOPROLOL TART 25 MG TABLET PO SCH ×2 (10:06→20:41)
[2016-09-24] MEDS: FUROSEMIDE 40 MG TAB PO SCH (10:06)
[2016-09-24] MEDS: NORCO, ANEXSIA 5/325MG TABLET (HYDROcodone/ACETAMINOPHEN) PO PRN ×2 (10:11→20:42)
[2016-09-24 14:00] VITALS: BP 131/79
[2016-09-24] MEDS: MORPHINE 2 MG/ML 1ML SYRINGE IV PRN (15:04)
[2016-09-24] MEDS: HEPARIN DRIP 25,000 UNITS in APPROPRIATE DILUENT 1 EA IV SCH (16:26)
[2016-09-24] MEDS: WARFARIN SOD 5 MG TAB PO SCH (17:22)
[2016-09-24] MEDS: SERTRALINE 100 MG TAB PO SCH (20:39)
[2016-09-24] MEDS: ASCORBIC ACID 500 MG TAB PO SCH (20:39)
[2016-09-24] MEDS: ROSUVASTATIN 10 MG TAB (CRESTOR) PO SCH (20:39)
[2016-09-24] MEDS: VITAMIN D 1,000 INTERNATIONAL UNITS TABLET PO SCH (20:39)
[2016-09-24 22:00] VITALS: BP 129/67
[2016-09-25 06:00] VITALS: BP 128/63
[2016-09-25] MEDS: NORCO, ANEXSIA 5/325MG TABLET (HYDROcodone/ACETAMINOPHEN) PO PRN ×2 (07:14→13:23)
[2016-09-25] MEDS: HEPARIN DRIP 25,000 UNITS in APPROPRIATE DILUENT 1 EA IV SCH ×2 (07:16→18:57)
[2016-09-25] MEDS: DOCUSATE SODIUM 100 MG CAP PO SCH ×2 (08:59→21:00)
[2016-09-25] MEDS: ASPIRIN 325 MG TAB PO SCH (08:59)
[2016-09-25] MEDS: CALCIUM/VITAMIN D 500 MG TAB PO SCH (09:00)
[2016-09-25] MEDS: FUROSEMIDE 40 MG TAB PO SCH (09:00)
[2016-09-25] MEDS: LISINOPRIL 20 MG TAB PO SCH ×2 (09:00→21:16)
[2016-09-25] MEDS: rOPINIRole 0.25 MG TAB(REQUIP) PO SCH (09:00)
[2016-09-25] MEDS: METOPROLOL TART 25 MG TABLET PO SCH ×2 (09:01→21:16)
[2016-09-25] MEDS: NYSTATIN 100,000 UNITS/GM TOPICAL PWD 15 GM TOP SCH ×2 (09:01→21:14)
[2016-09-25] MEDS: SENOKOT S TAB PO SCH ×2 (09:01→21:00)
[2016-09-25] MEDS: BACLOFEN 10 MG TAB PO SCH ×2 (09:01→21:15)
[2016-09-25 11:13] LABS: INR 1.52
[2016-09-25 14:00] VITALS: BP 141/84
[2016-09-25] MEDS ORDERED: WARFARIN SOD 4 MG TAB PO ONE (17:00)
[2016-09-25] MEDS: WARFARIN SOD 5 MG TAB PO SCH (18:35)
--- NOTE | 2016-09-25 18:42 | IPN ---
DATE: 09/25/2016 SUBJECTIVE: The patient denies any rest pain, no claudication, no transient ischemic attack (TIA), no amaurosis fugax, no dysarthria, no paralysis or paresis of an extremity. No chest pain and no shortness of breath. The patient does acknowledge continued pain in her incisions and in her right foot, but this has improved significantly over the last few days. OBJECTIVE: The patient has been afebrile with a T-max of 98.8. Other vital signs have been stable. HEART: Has been regular rate and rhythm. LUNGS: Clear to auscultation. ABDOMEN: Soft, nontender, nondistended with no palpable pulsatile masses. EXTREMITIES: Are well perfused. The right inguinal incision shows good signs of healing with carolyn in place. The right below knee bypass graft incision shows good healing with some minor necrosis of the skin edge in the midline of the incision. The remainder of the incision is healing well. The venous stasis ulcers in the right lower extremity are showing good signs of healing. The lateral aspect of the large venous stasis ulcer shows some discoloration and necrosis of the skin which is small. There is much less edema in the right lower extremity. ASSESSMENT AND PLAN: The patient is a 66-year-old female with large venous stasis ulcers in the right lower extremity who underwent angioplasty and stenting which subsequently occluded. The patient then underwent a right femoral to below knee popliteal artery bypass graft. The patient is healing well and her foot is well perfused with significant improvement in pain and decreased swelling. Her dressings were changed today which showed the wounds to be healing well, which showed good perfusion. The dressings were changed with placement of Vaseline gauze over the open wounds followed by 4 x 4 and ABD. These were then covered with Kerlix. The foot was then wrapped from the base of the toes to the above knee region with abi wraps. The incision in the below knee region was also covered with a dry dressing and included in the coverage with the abi wrap. The patient will continue with elevation of the right lower extremity as much as possible due to her venous hypertension and swelling and venous stasis in the right lower extremity. The patient continues on heparin drip with conversion to Coumadin. Her INR today was 1.52, which is the same as yesterday. The patient will be given an additional 4 mg of Coumadin in an attempt to raise her INR to a therapeutic level which would be between 2 and 3. The patient will continue on a heparin drip for the time being until her INR is therapeutic. The patient is currently recuperating well and the plan will be for her to transfer to a short term rehabilitation unit early next week.
[2016-09-25] MEDS: MORPHINE 2 MG/ML 1ML SYRINGE IV PRN (21:05)
[2016-09-25] MEDS: ASCORBIC ACID 500 MG TAB PO SCH (21:06)
[2016-09-25] MEDS: ROSUVASTATIN 10 MG TAB (CRESTOR) PO SCH (21:06)
[2016-09-25] MEDS: SERTRALINE 100 MG TAB PO SCH (21:06)
[2016-09-25] MEDS: VITAMIN D 1,000 INTERNATIONAL UNITS TABLET PO SCH (21:06)
[2016-09-25 22:00] VITALS: BP 139/83
[2016-09-26] MEDS: HEPARIN DRIP 25,000 UNITS in APPROPRIATE DILUENT 1 EA IV SCH (03:10)
[2016-09-26] MEDS: NORCO, ANEXSIA 5/325MG TABLET (HYDROcodone/ACETAMINOPHEN) PO PRN ×3 (03:26→23:00)
[2016-09-26 06:00] VITALS: BP 134/79
[2016-09-26 06:32] LABS: MEAN CORPUSCULAR HEMOGLOBIN 26.6 pg (27.0-33.0); MEAN CORPUSCULAR HGB CONC 31.1 g/dl (32.0-36.5); MEAN CORPUSCULAR VOLUME 85.5 fl (80.0-96.0); RED CELL DISTRIBUTION WIDTH 14.6 % (11.5-14.5); WHITE BLOOD COUNT 9.8 K/mm3 (4.0-10.0)
[2016-09-26 06:36] LABS: INR 1.72
[2016-09-26 06:53] LABS: ANION GAP 8 MEQ/L (8-16); BLOOD UREA NITROGEN 20 MG/DL (7-18); CALCIUM LEVEL 8.8 MG/DL (8.8-10.2); CARBON DIOXIDE LEVEL 27 MEQ/L (21-32); CHLORIDE LEVEL 107 MEQ/L (98-107); CREATININE FOR GFR 0.84 MG/DL (0.55-1.02); GLOMERULAR FILTRATION RATE > 60.0 (>45); GLUCOSE, FASTING 157 MG/DL (80-110); POTASSIUM SERUM 4.3 MEQ/L (3.5-5.1); SODIUM LEVEL 142 MEQ/L (136-145)
[2016-09-26] MEDS: SENOKOT S TAB PO SCH ×2 (10:13→20:56)
[2016-09-26] MEDS: FUROSEMIDE 40 MG TAB PO SCH (10:14)
[2016-09-26] MEDS: LISINOPRIL 20 MG TAB PO SCH ×2 (10:14→20:56)
[2016-09-26] MEDS: ASPIRIN 325 MG TAB PO SCH (10:14)
[2016-09-26] MEDS: CALCIUM/VITAMIN D 500 MG TAB PO SCH (10:14)
[2016-09-26] MEDS: DOCUSATE SODIUM 100 MG CAP PO SCH ×3 (10:14→20:59)
[2016-09-26] MEDS: rOPINIRole 0.25 MG TAB(REQUIP) PO SCH (10:14)
[2016-09-26] MEDS: NYSTATIN 100,000 UNITS/GM TOPICAL PWD 15 GM TOP SCH ×2 (10:15→21:04)
[2016-09-26] MEDS: METOPROLOL TART 25 MG TABLET PO SCH ×2 (10:15→20:56)
[2016-09-26] MEDS: BACLOFEN 10 MG TAB PO SCH ×2 (10:15→20:56)
[2016-09-26 14:00] VITALS: BP 140/80
[2016-09-26] MEDS: WARFARIN SOD 5 MG TAB PO SCH (17:44)
[2016-09-26] MEDS: ASCORBIC ACID 500 MG TAB PO SCH (20:56)
[2016-09-26] MEDS: ROSUVASTATIN 10 MG TAB (CRESTOR) PO SCH (20:56)
[2016-09-26] MEDS: SERTRALINE 100 MG TAB PO SCH (21:04)
[2016-09-26] MEDS: VITAMIN D 1,000 INTERNATIONAL UNITS TABLET PO SCH (21:04)
[2016-09-26 22:00] VITALS: BP 140/80
--- NOTE | 2016-09-26 22:20 | IPNPDOC ---
Subjective Date Seen The patient was seen on 09/26/16. Subjective Chief Complaint/HPI The patient is a 66-year-old female admitted with a reason for visit of Arterial Insufficiency W/ Rt Leg Ulcer. General: Reports: Normal Appetite, Denies: Chills, Night Sweats, Fatigue, Malaise Constitutional: Denies: Chills, Fever, Night Sweats Eyes: Denies: Pain, Vision change ENT: Denies: Head Aches, Ear Pain, Dysphagia Skin: Denies: Rash, Lesions, Breakdown Pulmonary: Denies: Dyspnea, Cough Cardiovascular: Denies: Chest Pain, Palpitations, Orthopnea, Paroxysmal Noc. Dyspnea, Lt Headedness Gastrointestinal: Denies: Nausea, Vomiting, Abdominal Pain, Diarrhea, Constipation Genitourinary: Denies: Dysuria, Frequency, Incontinence, Retention Hematologic: Denies: Bruising, Bleeding Excessively Musculoskeletal: Denies: Neck Pain, Back Pain, Joint Pain, Muscle Pain, Spasms Neurological: Denies: Weakness, Numbness, Change in speech, Confusion Psych: Reports: Mood Normal, Denies: Depression, Memory Issues Objective Physical Examination General Exam: Positive: Alert, No Acute Distress Neck Exam: Positive: Supple, +2 carotid pulse wo bruit Chest Exam: Positive: Clear to auscultation Heart Exam: Positive: Rate Normal, Irregular Rhythm Abdomen Exam: Positive: Normal bowel sounds Skin Exam: Positive: Nl turgor and temperature Psych Exam: Positive: Mental status NL Other physical findings Incisions are clean dry and intact Assessment /Plan Problems (1) Ischaemic ulcer of lower extremity Status: Chronic Response to Treatment: Improving (2) Ischemia of extremity Status: Acute Response to Treatment: Improving Problem Text: Patient improving planned for acute rehabilitation early next week Plan/VTE VTE Prophylaxis Ordered?: Yes VS, I&O, 24H, Fishbone Vital Signs/I&O Vital Signs Date Time Temp Pulse Resp B/P (MAP) Pulse Ox O2 Delivery O2 Flow Rate FiO2 09/26/16 21:24 87 98 Room Air 09/26/16 20:56 140/80 09/26/16 14:59 16 09/26/16 14:00 97.0 09/25/16 14:00 2.0 I&O- Last 24 Hours up to 6 AM 09/26/16 06:00 Intake Total 754 ml Output Total 900 ml Balance -146 ml Laboratory Data 24H LABS Laboratory Tests 2 09/26/16 00:14: Activated Partial Thromboplast Time 92.1H 09/26/16 06:20: Activated Partial Thromboplast Time 60.1H, Prothrombin Time 20.7H, Prothromb Time International Ratio 1.72, Anion Gap 8, Glomerular Filtration Rate > 60.0, Blood Urea Nitrogen 20H, Creatinine 0.84, Sodium Level 142, Potassium Level 4.3 , Chloride Level 107, Carbon Dioxide Level 27, Calcium Level 8.8 09/26/16 12:09: Activated Partial Thromboplast Time 86.2H 09/26/16 19:10: Activated Partial Thromboplast Time 83.6H CBC/BMP Laboratory Tests 09/26/16 06:20 Red Blood Count 3.33 L, Mean Corpuscular Volume 85.5, Mean Corpuscular Hemoglobin 26.6 L, Mean Corpuscular Hemoglobin Concent 31.1 L, Red Cell Distribution Width 14.6 H, Calcium Level 8.8 Microbiology Microbiology 09/26/16 Stool Occult Blood (BONG) - Final, Complete Jayy Parks MD Sep 26, 2016 22:20
[2016-09-27] MEDS: HEPARIN DRIP 25,000 UNITS in APPROPRIATE DILUENT 1 EA IV SCH ×2 (01:48→18:35)
[2016-09-27] MEDS: NORCO, ANEXSIA 5/325MG TABLET (HYDROcodone/ACETAMINOPHEN) PO PRN ×3 (05:23→20:44)
[2016-09-27 06:00] VITALS: BP 148/78
[2016-09-27] MEDS: DOCUSATE SODIUM 100 MG CAP PO SCH ×2 (09:00→20:49)
[2016-09-27] MEDS: SENOKOT S TAB PO SCH ×2 (09:00→20:49)
[2016-09-27] MEDS: ASPIRIN 325 MG TAB PO SCH (10:08)
[2016-09-27] MEDS: CALCIUM/VITAMIN D 500 MG TAB PO SCH (10:08)
[2016-09-27] MEDS: NYSTATIN 100,000 UNITS/GM TOPICAL PWD 15 GM TOP SCH ×2 (10:08→20:46)
[2016-09-27] MEDS: rOPINIRole 0.25 MG TAB(REQUIP) PO SCH (10:09)
[2016-09-27] MEDS: LISINOPRIL 20 MG TAB PO SCH ×2 (10:09→20:43)
[2016-09-27] MEDS: BACLOFEN 10 MG TAB PO SCH ×2 (10:09→20:43)
[2016-09-27] MEDS: FUROSEMIDE 40 MG TAB PO SCH (10:10)
[2016-09-27] MEDS: METOPROLOL TART 25 MG TABLET PO SCH ×2 (10:10→20:45)
[2016-09-27 14:00] VITALS: BP 136/73
[2016-09-27] MEDS: WARFARIN SOD 5 MG TAB PO SCH (16:53)
--- NOTE | 2016-09-27 20:40 | IPNPDOC ---
Date Seen The patient was seen on 09/27/16. Progress Note SUBJECTIVE: Patient is a 66-year-old white female with bypass grafting of the right lower extremity due to nonhealing venostasis ulcers and arterial insufficiency and rest pain. Patient states her right lower extremity is significantly improved and the pain is minimal area of OBJECTIVE PHYSICAL EXAMINATION: VITAL SIGNS: Please see below. GENERAL: Lying in bed in no apparent distress with legs elevated HEENT: Normal CARDIOVASCULAR: Irregular. RESPIRATORY: Clear to auscultation bilaterally. ABDOMINAL: Soft nontender nondistended EXTREMITIES: Right lower extremity well perfused swelling reduced venous stasis ulcers show good signs of healing with good granulation tissue LABORATORY DATA: Please see below. MICROBIOLOGY: Please see below. DVT prophylaxis ordered?: Patient on heparin drip and Coumadin ASSESSMENT AND PLAN: This is a 66-year-old white female with a right C bypass graft secondary to venous stasis ulcers, rest pain and arterial insufficiency.. PROBLEMS: 1. [right lower extremity arterial insufficiency]: Patient is status post right femoral to below knee popped artery bypass graft with good perfusion of the right lower extremity and well healing wounds. 2. venous stasis ulcers: Patient is undergoing compressive therapy with an Heriberto wrap to the right lower extremity and Vaseline gauze covering the venous stasis ulcers the wounds are showing good signs of healing. DISPOSITION: Patient is stable for transfer to short-term rehabilitation and the plan will be for discharge to short-term rehabilitation sometime this week.. VS, I&O, 24H, Fishbone Vital Signs/I&O Vital Signs Date Time Temp Pulse Resp B/P (MAP) Pulse Ox O2 Delivery O2 Flow Rate FiO2 09/27/16 14:00 97.3 92 17 136/73 (94) 100 Room Air 09/25/16 14:00 2.0 I&O- Last 24 Hours up to 6 AM 09/27/16 06:00 Intake Total 1152 ml Output Total 850 ml Balance 302 ml Laboratory Data 24H LABS Laboratory Tests 2 09/27/16 00:46: Activated Partial Thromboplast Time 80.2H 09/27/16 06:36: Activated Partial Thromboplast Time 95.5H 09/27/16 13:21: Activated Partial Thromboplast Time 87.3H 09/27/16 19:20: Activated Partial Thromboplast Time 97.2H Microbiology Microbiology 09/27/16 Stool Occult Blood (BONG) - Final, Complete 09/26/16 Stool Occult Blood (BONG) - Final, Complete Jayy Parks MD Sep 27, 2016 20:40
[2016-09-27] MEDS: VITAMIN D 1,000 INTERNATIONAL UNITS TABLET PO SCH (20:43)
[2016-09-27] MEDS: ROSUVASTATIN 10 MG TAB (CRESTOR) PO SCH (20:43)
[2016-09-27] MEDS: SERTRALINE 100 MG TAB PO SCH (20:44)
[2016-09-27] MEDS: ASCORBIC ACID 500 MG TAB PO SCH (20:44)
[2016-09-27] MEDS: MORPHINE 2 MG/ML 1ML SYRINGE IV PRN (21:53)
[2016-09-27 22:00] VITALS: BP 138/70
[2016-09-28 06:00] VITALS: BP 157/84
[2016-09-28 06:34] LABS: INR 2.19; MEAN CORPUSCULAR HEMOGLOBIN 26.7 pg (27.0-33.0); MEAN CORPUSCULAR HGB CONC 31.3 g/dl (32.0-36.5); MEAN CORPUSCULAR VOLUME 85.4 fl (80.0-96.0); RED CELL DISTRIBUTION WIDTH 14.8 % (11.5-14.5); WHITE BLOOD COUNT 9.1 K/mm3 (4.0-10.0)
[2016-09-28 06:39] LABS: ANION GAP 8 MEQ/L (8-16); BLOOD UREA NITROGEN 24 MG/DL (7-18); CALCIUM LEVEL 9.1 MG/DL (8.8-10.2); CARBON DIOXIDE LEVEL 27 MEQ/L (21-32); CHLORIDE LEVEL 106 MEQ/L (98-107); CREATININE FOR GFR 0.91 MG/DL (0.55-1.02); GLOMERULAR FILTRATION RATE > 60.0 (>45); GLUCOSE, FASTING 156 MG/DL (80-110); POTASSIUM SERUM 4.2 MEQ/L (3.5-5.1); SODIUM LEVEL 141 MEQ/L (136-145)
[2016-09-28] MEDS: ASPIRIN 325 MG TAB PO SCH (08:15)
[2016-09-28] MEDS: BACLOFEN 10 MG TAB PO SCH ×2 (08:16→21:01)
[2016-09-28] MEDS: FUROSEMIDE 40 MG TAB PO SCH (08:16)
[2016-09-28] MEDS: rOPINIRole 0.25 MG TAB(REQUIP) PO SCH (08:16)
[2016-09-28] MEDS: LISINOPRIL 20 MG TAB PO SCH ×2 (08:16→21:00)
[2016-09-28] MEDS: METOPROLOL TART 25 MG TABLET PO SCH ×2 (08:17→21:02)
[2016-09-28] MEDS: CALCIUM/VITAMIN D 500 MG TAB PO SCH (08:17)
[2016-09-28] MEDS: NORCO, ANEXSIA 5/325MG TABLET (HYDROcodone/ACETAMINOPHEN) PO PRN ×3 (08:18→21:27)
[2016-09-28] MEDS: DOCUSATE SODIUM 100 MG CAP PO SCH ×2 (09:00→21:00)
[2016-09-28] MEDS: SENOKOT S TAB PO SCH ×3 (09:00→21:00)
[2016-09-28] MEDS: NYSTATIN 100,000 UNITS/GM TOPICAL PWD 15 GM TOP SCH ×2 (09:00→20:59)
--- NOTE | 2016-09-28 13:11 | IPNPDOC ---
Date Seen The patient was seen on 09/28/16. Progress Note SUBJECTIVE: Patient without complaints. Patient states pain in the right lower extremity has improved significantly. OBJECTIVE PHYSICAL EXAMINATION: VITAL SIGNS: Please see below. GENERAL: Awake alert sitting in the chair in no apparent distress HEENT: Normal CARDIOVASCULAR: Irregular. RESPIRATORY: Clear to auscultation bilaterally. ABDOMINAL: Soft nontender nondistended EXTREMITIES: Both lower extremities are well-perfused. The edema in the right lower extremity is significantly decreased. The ulcers are clean and show good granulation tissue. NEUROLOGICAL: No change in neurologic status PSYCHOLOGICAL: Normal LABORATORY DATA: Please see below. MICROBIOLOGY: Please see below. DVT prophylaxis ordered?: Show Coumadin ASSESSMENT AND PLAN: This is a 66-year-old white female with right lower extremity ischemia and nonhealing venous stasis ulcers to underwent a right femoral to below-knee popliteal artery bypass graft. PROBLEMS: 1. venous stasis ulcer right lower extremity: The wounds are showing good signs of healing. Her swelling is improving and she continues to undergo compressive therapy with an Heriberto wrap. The wounds are being treated with wrestling gauze and a dry dressing over the gauze with compression with Heriberto wrap. 2. arterial insufficiency right lower extremity: The patient's right lower extremity is well-perfused and her pain is minimal. 3. atrial fibrillation: Patient is therapeutic on her Coumadin and her heparin drip was discontinued today. DISPOSITION: Plan is to transfer the patient to a rehabilitation facility as soon as she is accepted. The patient is stable for transfer as soon as a facility is available. VS, I&O, 24H, Fishbone Vital Signs/I&O Vital Signs Date Time Temp Pulse Resp B/P (MAP) Pulse Ox O2 Delivery O2 Flow Rate FiO2 09/28/16 09:56 16 09/28/16 08:17 95 133/60 09/28/16 08:15 99 Room Air 09/28/16 06:00 97.8 09/25/16 14:00 2.0 I&O- Last 24 Hours up to 6 AM 09/28/16 06:00 Intake Total 360 ml Output Total 200 ml Balance 160 ml Laboratory Data 24H LABS Laboratory Tests 2 09/27/16 13:21: Activated Partial Thromboplast Time 87.3H 09/27/16 19:20: Activated Partial Thromboplast Time 97.2H 09/28/16 00:53: Activated Partial Thromboplast Time 111.2H 09/28/16 06:06: Activated Partial Thromboplast Time 102.9H, Prothrombin Time 25.2H, Prothromb Time International Ratio 2.19, Anion Gap 8, Glomerular Filtration Rate > 60.0, Blood Urea Nitrogen 24H, Creatinine 0.91, Sodium Level 141, Potassium Level 4.2 , Chloride Level 106, Carbon Dioxide Level 27, Calcium Level 9.1 CBC/BMP Laboratory Tests 09/28/16 06:06 Red Blood Count 3.54 L, Mean Corpuscular Volume 85.4, Mean Corpuscular Hemoglobin 26.7 L, Mean Corpuscular Hemoglobin Concent 31.3 L, Red Cell Distribution Width 14.8 H, Calcium Level 9.1 Microbiology Microbiology 09/27/16 Stool Occult Blood (BONG) - Final, Complete 09/26/16 Stool Occult Blood (BONG) - Final, Complete Jayy Parks MD Sep 28, 2016 13:11
[2016-09-28 14:00] VITALS: BP 132/67
[2016-09-28] MEDS: WARFARIN SOD 5 MG TAB PO SCH (17:37)
[2016-09-28] MEDS: ROSUVASTATIN 10 MG TAB (CRESTOR) PO SCH (20:59)
[2016-09-28] MEDS: ASCORBIC ACID 500 MG TAB PO SCH (20:59)
[2016-09-28] MEDS: VITAMIN D 1,000 INTERNATIONAL UNITS TABLET PO SCH (21:02)
[2016-09-28] MEDS: SERTRALINE 100 MG TAB PO SCH (21:03)
[2016-09-28 22:00] VITALS: BP 179/69
[2016-09-29 06:00] VITALS: BP 145/63
[2016-09-29] MEDS: CALCIUM/VITAMIN D 500 MG TAB PO SCH (09:04)
[2016-09-29] MEDS: LISINOPRIL 20 MG TAB PO SCH ×2 (09:04→21:02)
[2016-09-29] MEDS: SENOKOT S TAB PO SCH ×2 (09:04→21:03)
[2016-09-29] MEDS: BACLOFEN 10 MG TAB PO SCH ×2 (09:04→21:03)
[2016-09-29] MEDS: METOPROLOL TART 25 MG TABLET PO SCH ×2 (09:04→21:05)
[2016-09-29] MEDS: DOCUSATE SODIUM 100 MG CAP PO SCH ×2 (09:04→21:02)
[2016-09-29] MEDS: ASPIRIN 325 MG TAB PO SCH (09:04)
[2016-09-29] MEDS: rOPINIRole 0.25 MG TAB(REQUIP) PO SCH (09:04)
[2016-09-29] MEDS: NORCO, ANEXSIA 5/325MG TABLET (HYDROcodone/ACETAMINOPHEN) PO PRN ×2 (09:04→21:04)
[2016-09-29] MEDS: NYSTATIN 100,000 UNITS/GM TOPICAL PWD 15 GM TOP SCH ×2 (09:05→21:05)
[2016-09-29] MEDS: FUROSEMIDE 40 MG TAB PO SCH (09:05)
[2016-09-29 14:00] VITALS: BP 141/67
--- NOTE | 2016-09-29 15:37 | IPNPDOC ---
Date Seen The patient was seen on 09/29/16. Progress Note SUBJECTIVE: Patient without complaints. Pain in right lower extremity is minimal. OBJECTIVE PHYSICAL EXAMINATION: VITAL SIGNS: Please see below. GENERAL: Awake alert lying in bed with no apparent distress, patient was sleeping when I entered the room. HEENT: Normal CARDIOVASCULAR: Irregular. RESPIRATORY: Clear to auscultation bilaterally. ABDOMINAL: Soft nontender nondistended EXTREMITIES: Left low tremor is well perfused, right lower extremity is well- perfused with minimal swelling the venous stasis ulcers are clean with good granulation tissue. NEUROLOGICAL: Awake alert oriented x3 with no focal deficits PSYCHOLOGICAL: Normal LABORATORY DATA: Please see below. MICROBIOLOGY: Please see below. DVT prophylaxis ordered?: Patient is on Coumadin ASSESSMENT AND PLAN: This is a 66-year-old white female with nonhealing right lower extremity venous stasis ulcers and arterial atherosclerotic occlusive disease who underwent arterial revascularization and is doing well postoperatively.. PROBLEMS: 1. right lower extremity arterial insufficiency: Regular 70 his well-perfused incisions are healing well and the swelling is minimal. 2. venous stasis ulcerations: The wounds are showing signs of healing and there is good perfusion and good granulation tissue of the wounds patient is currently undergoing best and gauze over the wound with compressive therapy. DISPOSITION: Patient is awaiting placement in a nursing facility, the patient was evaluated by physical therapy who feels the patient may be stable for discharge to home at the end of this week. VS, I&O, 24H, Fishbone Vital Signs/I&O Vital Signs Date Time Temp Pulse Resp B/P (MAP) Pulse Ox O2 Delivery O2 Flow Rate FiO2 09/29/16 09:34 18 09/29/16 09:04 111 145/63 09/29/16 07:25 Room Air 09/29/16 06:00 98.8 98 09/25/16 14:00 2.0 I&O- Last 24 Hours up to 6 AM 09/29/16 06:00 Intake Total 1080 ml Output Total 1150 ml Balance -70 ml Laboratory Data Microbiology Microbiology 09/27/16 Stool Occult Blood (BONG) - Final, Complete 09/26/16 Stool Occult Blood (BONG) - Final, Complete Jayy Parks MD Sep 29, 2016 15:37
[2016-09-29] MEDS: WARFARIN SOD 5 MG TAB PO SCH (17:35)
[2016-09-29] MEDS: ASCORBIC ACID 500 MG TAB PO SCH (21:02)
[2016-09-29] MEDS: VITAMIN D 1,000 INTERNATIONAL UNITS TABLET PO SCH (21:02)
[2016-09-29] MEDS: ROSUVASTATIN 10 MG TAB (CRESTOR) PO SCH (21:02)
[2016-09-29] MEDS: SERTRALINE 100 MG TAB PO SCH (21:03)
[2016-09-29 22:00] VITALS: BP 145/65
[2016-09-29] MEDS: MORPHINE 2 MG/ML 1ML SYRINGE IV PRN (22:56)
[2016-09-30 06:00] VITALS: BP 141/73
[2016-09-30] MEDS: NORCO, ANEXSIA 5/325MG TABLET (HYDROcodone/ACETAMINOPHEN) PO PRN ×3 (06:40→23:30)
[2016-09-30] MEDS: ASPIRIN 325 MG TAB PO SCH (08:39)
[2016-09-30] MEDS: SENOKOT S TAB PO SCH ×2 (08:39→21:28)
[2016-09-30] MEDS: FUROSEMIDE 40 MG TAB PO SCH (08:39)
[2016-09-30] MEDS: LISINOPRIL 20 MG TAB PO SCH ×2 (08:39→21:29)
[2016-09-30] MEDS: rOPINIRole 0.25 MG TAB(REQUIP) PO SCH (08:39)
[2016-09-30] MEDS: DOCUSATE SODIUM 100 MG CAP PO SCH ×2 (08:40→21:28)
[2016-09-30] MEDS: METOPROLOL TART 25 MG TABLET PO SCH ×2 (08:40→21:29)
[2016-09-30] MEDS: CALCIUM/VITAMIN D 500 MG TAB PO SCH (08:40)
[2016-09-30] MEDS: BACLOFEN 10 MG TAB PO SCH ×2 (08:40→21:29)
[2016-09-30] MEDS: NYSTATIN 100,000 UNITS/GM TOPICAL PWD 15 GM TOP SCH ×2 (08:41→21:30)
[2016-09-30 14:00] VITALS: BP 119/58
[2016-09-30] MEDS: WARFARIN SOD 5 MG TAB PO SCH (17:02)
[2016-09-30] MEDS: SERTRALINE 100 MG TAB PO SCH (21:28)
[2016-09-30] MEDS: ROSUVASTATIN 10 MG TAB (CRESTOR) PO SCH (21:28)
[2016-09-30] MEDS: ASCORBIC ACID 500 MG TAB PO SCH (21:29)
[2016-09-30] MEDS: VITAMIN D 1,000 INTERNATIONAL UNITS TABLET PO SCH (21:29)
[2016-09-30 22:00] VITALS: BP 140/60
--- NOTE | 2016-09-30 23:17 | IPNPDOC ---
Date Seen The patient was seen on 09/30/16. Progress Note SUBJECTIVE: Patient without complaints. OBJECTIVE PHYSICAL EXAMINATION: VITAL SIGNS: Please see below. GENERAL: Awake alert in no apparent distress HEENT: Normal CARDIOVASCULAR: Irregular RESPIRATORY: Clear to auscultation bilaterally. ABDOMINAL: Soft nontender nondistended with no palpable or pulsatile masses EXTREMITIES: Lower extremities well-perfused right lower extremity venous stasis ulcers stable NEUROLOGICAL: Awake alert oriented x3 with no focal deficits PSYCHOLOGICAL: Normal LABORATORY DATA: Please see below. DVT prophylaxis ordered?: Patient on Coumadin ASSESSMENT AND PLAN: This is a 66-year-old white female with right lower extremity venous stasis ulcers and is status post right femoral to popliteal arterial bypass grafting. PROBLEMS: 1. right lower extremity venous stasis ulcers: Ulcers are healing well patient is undergoing compressive therapy with wrestling gauze over the dressings. Patient will undergo placement of an Unna boot prior to discharge.. 2. arterial insufficiency: Right artery bypass graft is patent with excellent perfusion of the right lower extremity patient is asymptomatic with relief of pain in the right foot which was previously severely ischemic and the patient having rest pain. DISPOSITION: Patient for possible discharge on Wednesday. Patient undergo placement of an vertebral prior to discharge and will followup with Dr. Ambrosio as an outpatient next week. VS, I&O, 24H, Fishbone Vital Signs/I&O Vital Signs Date Time Temp Pulse Resp B/P (MAP) Pulse Ox O2 Delivery O2 Flow Rate FiO2 09/30/16 21:29 82 142/68 09/30/16 17:32 18 09/30/16 14:00 98.2 98 Room Air 09/25/16 14:00 2.0 I&O- Last 24 Hours up to 6 AM 09/30/16 06:00 Intake Total 720 ml Output Total 200 ml Balance 520 ml Laboratory Data Microbiology Microbiology 09/27/16 Stool Occult Blood (BONG) - Final, Complete 09/26/16 Stool Occult Blood (BONG) - Final, Complete Jayy Parks MD Sep 30, 2016 23:17
[2016-10-01] MEDS: NORCO, ANEXSIA 5/325MG TABLET (HYDROcodone/ACETAMINOPHEN) PO PRN ×3 (05:35→23:54)
[2016-10-01 06:00] VITALS: BP 143/68
[2016-10-01 08:05] LABS: MEAN CORPUSCULAR HEMOGLOBIN 26.3 pg (27.0-33.0); MEAN CORPUSCULAR HGB CONC 30.8 g/dl (32.0-36.5); MEAN CORPUSCULAR VOLUME 85.5 fl (80.0-96.0); RED CELL DISTRIBUTION WIDTH 14.6 % (11.5-14.5); WHITE BLOOD COUNT 8.2 K/mm3 (4.0-10.0)
[2016-10-01 08:11] LABS: INR 2.45
[2016-10-01 08:25] LABS: ANION GAP 7 MEQ/L (8-16); BLOOD UREA NITROGEN 29 MG/DL (7-18); CALCIUM LEVEL 8.7 MG/DL (8.8-10.2); CARBON DIOXIDE LEVEL 25 MEQ/L (21-32); CHLORIDE LEVEL 108 MEQ/L (98-107); CREATININE FOR GFR 0.92 MG/DL (0.55-1.02); GLOMERULAR FILTRATION RATE > 60.0 (>45); GLUCOSE, FASTING 146 MG/DL (80-110); POTASSIUM SERUM 4.7 MEQ/L (3.5-5.1); SODIUM LEVEL 140 MEQ/L (136-145)
[2016-10-01] MEDS: FUROSEMIDE 40 MG TAB PO SCH (10:02)
[2016-10-01] MEDS: LISINOPRIL 20 MG TAB PO SCH ×2 (10:02→22:55)
[2016-10-01] MEDS: BACLOFEN 10 MG TAB PO SCH ×2 (10:02→22:56)
[2016-10-01] MEDS: SENOKOT S TAB PO SCH ×2 (10:02→21:00)
[2016-10-01] MEDS: CALCIUM/VITAMIN D 500 MG TAB PO SCH (10:02)
[2016-10-01] MEDS: DOCUSATE SODIUM 100 MG CAP PO SCH ×3 (10:02→21:00)
[2016-10-01] MEDS: rOPINIRole 0.25 MG TAB(REQUIP) PO SCH (10:03)
[2016-10-01] MEDS: ASPIRIN 325 MG TAB PO SCH (10:03)
[2016-10-01] MEDS: METOPROLOL TART 25 MG TABLET PO SCH ×2 (10:03→22:56)
[2016-10-01] MEDS: NYSTATIN 100,000 UNITS/GM TOPICAL PWD 15 GM TOP SCH ×2 (10:51→22:57)
--- NOTE | 2016-10-01 13:10 | REP ---
IMAGES DURING ABDOMINAL AORTOGRAM AND RIGHT LOWER EXTREMITY ANGIOGRAM: Multiple images obtained during abdominal aortogram and right lower extremity angiogram. Abdominal aorta is visualized as well as right lower extremity arterial system down to the popliteal artery. 10.3 minutes fluoroscopy time utilized. Signed by Tiburcio Infante MD 10/01/2016 03:57 P
[2016-10-01 14:00] VITALS: BP 110/63
[2016-10-01] MEDS: WARFARIN SOD 5 MG TAB PO SCH (17:40)
--- NOTE | 2016-10-01 21:58 | IPNPDOC ---
Date Seen The patient was seen on 10/01/16. Progress Note SUBJECTIVE: Patient without complaints. OBJECTIVE PHYSICAL EXAMINATION: VITAL SIGNS: Please see below. GENERAL: Lying in bed in no apparent distress HEENT: Normal CARDIOVASCULAR: Irregular rate and rhythm. RESPIRATORY: Clear to auscultation bilaterally. ABDOMINAL: Soft nontender nondistended EXTREMITIES: Lower extremities well-perfused, the right lower extremity incisions are healing well with no signs of infection. The venous stasis ulcers are healing well. NEUROLOGICAL: Alert and oriented x3 with no focal deficits. PSYCHOLOGICAL: Normal LABORATORY DATA: Please see below. MICROBIOLOGY: Please see below. IMAGING: None Echocardiogram: None. DVT prophylaxis ordered?: Patient is on Coumadin ASSESSMENT AND PLAN: This is a 66-year-old white female with right lower extremity arterial insufficiency status post right femoral to pop to artery bypass graft. The patient also has venous hypertension with large venous stasis ulcers in the right lower extremity which were not revealing. PROBLEMS: 1. venous stasis ulceration: Wounds are healing well now that the patient is undergone revascularization patient will continue with compressive therapy and will undergo placement of a new Unna boot prior to discharge.. 2. arterial insufficiency right lower extremity: She is status post right femoropopliteal artery bypass graft which is patent, and the patient has good perfusion of the right lower extremity. 3. atrial fibrillation: She is therapeutic on Coumadin. DISPOSITION: Possible discharge on 10/02/2016 to home after undergoing an Unna boot placement to the right lower extremity. Patient will followup with Dr. Ambrosio as an outpatient. VS, I&O, 24H, [facility] Vital Signs/I&O Vital Signs Date Time Temp Pulse Resp B/P (MAP) Pulse Ox O2 Delivery O2 Flow Rate FiO2 10/01/16 18:10 16 10/01/16 14:00 97.5 100 110/63 (79) 99 Room Air 09/25/16 14:00 2.0 I&O- Last 24 Hours up to 6 AM 10/01/16 06:00 Intake Total 1030 ml Output Total 1150 ml Balance -120 ml Laboratory Data 24H LABS Laboratory Tests 2 10/01/16 07:35: Prothrombin Time 27.6H, Prothromb Time International Ratio 2.45, Anion Gap 7L, Glomerular Filtration Rate > 60.0, Blood Urea Nitrogen 29H, Creatinine 0.92, Sodium Level 140, Potassium Level 4.7, Chloride Level 108H, Carbon Dioxide Level 25, Calcium Level 8.7L CBC/BMP Laboratory Tests 10/01/16 07:35 Red Blood Count 3.69 L, Mean Corpuscular Volume 85.5, Mean Corpuscular Hemoglobin 26.3 L, Mean Corpuscular Hemoglobin Concent 30.8 L, Red Cell Distribution Width 14.6 H, Calcium Level 8.7 L Microbiology Microbiology 09/27/16 Stool Occult Blood (BONG) - Final, Complete 09/26/16 Stool Occult Blood (BONG) - Final, Complete Jayy Parks MD Oct 01, 2016 21:58
[2016-10-01 22:00] VITALS: BP 133/67
[2016-10-01] MEDS: SERTRALINE 100 MG TAB PO SCH (22:55)
[2016-10-01] MEDS: ASCORBIC ACID 500 MG TAB PO SCH (22:55)
[2016-10-01] MEDS: ROSUVASTATIN 10 MG TAB (CRESTOR) PO SCH (22:55)
[2016-10-01] MEDS: VITAMIN D 1,000 INTERNATIONAL UNITS TABLET PO SCH (22:57)
[2016-10-02 06:00] VITALS: BP 130/70
[2016-10-02] MEDS: ASPIRIN 325 MG TAB PO SCH (08:37)
[2016-10-02 08:38] VITALS: BP 130/70
[2016-10-02] MEDS: rOPINIRole 0.25 MG TAB(REQUIP) PO SCH (08:38)
[2016-10-02] MEDS: CALCIUM/VITAMIN D 500 MG TAB PO SCH (08:38)
[2016-10-02] MEDS: NORCO, ANEXSIA 5/325MG TABLET (HYDROcodone/ACETAMINOPHEN) PO PRN (08:38)
[2016-10-02] MEDS: METOPROLOL TART 25 MG TABLET PO SCH (08:38)
[2016-10-02] MEDS: BACLOFEN 10 MG TAB PO SCH (08:38)
[2016-10-02] MEDS: FUROSEMIDE 40 MG TAB PO SCH (08:38)
[2016-10-02] MEDS: LISINOPRIL 20 MG TAB PO SCH (08:38)
[2016-10-02] MEDS: DOCUSATE SODIUM 100 MG CAP PO SCH (08:39)
[2016-10-02] MEDS: NYSTATIN 100,000 UNITS/GM TOPICAL PWD 15 GM TOP SCH (08:39)
[2016-10-02] MEDS: SENOKOT S TAB PO SCH (08:39)
--- NOTE | 2016-10-02 12:16 | DS.PDOC ---
Discharge Summary General Date of Admission Sep 15, 2016 at 13:15 Date of Discharge 10/02/2016 Attending Physician: Jayy Parks MD Specialist/Consultants Involve: Jayy Ambrosio MD Discharge Summary PROCEDURES PERFORMED DURING STAY: Right femoral to below-knee palpatory bypass graft. ADMITTING DIAGNOSES: 1. Right lower extremity arterial insufficiency with femoral-popliteal arterial atherosclerotic occlusive disease. 2. Venous valvular insufficiency, with nonhealing venous stasis ulcerations of the right lower extremity. 3. Atrial fibrillation. DISCHARGE DIAGNOSES: 1. Right lower extremity arterial insufficiency with femoral-popliteal arterial atherosclerotic occlusive disease. 2. Venous valvular insufficiency, with nonhealing venous stasis ulcerations of the right lower extremity. 3. Atrial fibrillation. COMPLICATIONS/CHIEF COMPLAINT: Arterial Insufficiency W/ Rt Leg Ulcer. HISTORY OF PRESENT ILLNESS: Patient is a 66 old female who was admitted after undergoing an arterial exam showing severe right lower summary arterial atherosclerotic occlusive disease. The patient also had nonhealing venous stasis ulcers in the right lower extremity. Patient underwent revascularization of the right lower summary with a femoral to below-knee palpatory bypass graft and wound care for her nonhealing right lower extremity venous stasis ulcers. HOSPITAL COURSE: Patient was admitted after undergoing an angiogram showing severe right lower summary arterial atherosclerotic occlusive disease. The next day the patient underwent a femoral to popliteal artery bypass graft. Patient did well postoperatively and was anticipating discharge to a short-term rehabilitation but the patient was subsequently cleared by physical therapy to return home with home health assistance. Medically the patient is stable for discharge to home. DISCHARGE MEDICATIONS: Please see below. ALLERGIES: Please see below. PHYSICAL EXAMINATION ON DISCHARGE: VITAL SIGNS: Please see below. GENERAL: Sitting in the chair in no apparent distress eating breakfast HEENT: Normal NECK: Supple with no carotid bruits CARDIOVASCULAR EXAMINATION: Irregular RESPIRATORY EXAMINATION: Clear to auscultation bilaterally ABDOMINAL EXAMINATION: Soft nontender nondistended with no palpable pulsatile masses EXTREMITIES: Lower Rose's are well perfused. The right lower extremity venous stasis ulcers are clean and show good signs of healing, there is minimal swelling in the right lower extremity. An Unna boot was applied to the right lower extremity today prior to discharge. Surgical incisions are healing well and carolyn are still in place. SKIN: Normal NEUROLOGICAL EXAMINATION: Awake alert oriented 3 PSYCHIATRIC EXAMINATION: Normal LABORATORY DATA: Please see below. IMAGING: None PROGNOSIS: Excellent ACTIVITY: As tolerated. DIET: Low-fat low-cholesterol diet. DISCHARGE PLAN: Discharge to home with home health care DISPOSITION: . DISCHARGE INSTRUCTIONS: 1. Patient will leave the Unna boot in place and follow up in my office next Wednesday. 2. Patient will follow up with Dr. peterson and next Wednesday. 3. Patient will continue on her Coumadin as per her pre-admission dosing. ITEMS TO FOLLOWUP ON ON OUTPATIENT: 1. Patient will follow up with myself in 3 days on Wednesday for evaluation of the right lower extremity. 2. Patient will follow-up with Dr. Ambrosio next Wednesday. DISCHARGE CONDITION: Stable. TIME SPENT ON DISCHARGE: Greater than 45 minutes. Vital Signs/I&Os Vital Signs Date Time Temp Pulse Resp B/P (MAP) Pulse Ox O2 Delivery O2 Flow Rate FiO2 10/02/16 09:08 18 10/02/16 08:38 130/70 10/02/16 06:00 98.6 113 98 Room Air I&O- Last 24 Hours up to 6 AM 10/02/16 06:00 Intake Total 540 ml Output Total 550 ml Balance -10 ml Microbiology Microbiology 09/27/16 Stool Occult Blood (BONG) - Final, Complete 09/26/16 Stool Occult Blood (BONG) - Final, Complete Discharge Medications Scheduled Ascorbic Acid (Vitamin C) 500 Mg Tab, 500 MG PO QHS, (Reported) Aspirin (Aspirin) 325 Mg Tab, 325 MG PO DAILY, (Reported) Baclofen (Baclofen) 10 Mg Tab, 10 MG PO BID, (Reported) Calcium/Vitamin D (Calcium 500+D 500-400 mg-Unit) 1 Tab Tab, 1 TAB PO DAILY, ( Reported) Cholecalciferol (Vitamin D-3) 1,000 Unit Tab, 1,000 UNIT PO QHS, (Reported) Furosemide (Furosemide) 40 Mg Tab, 40 MG PO DAILY, (Reported) Lisinopril (Lisinopril) 20 Mg Tab, 20 MG PO BID, (Reported) Metoprolol Tartrate (Metoprolol Tartrate) 25 Mg Tab, 25 MG PO BID, (Reported) Ropinirole Hydrochloride (Ropinirole HCl) 0.25 Mg Tab, 0.25 MG PO DAILY, ( Reported) Rosuvastatin Calcium (Crestor) 20 Mg Tab, 20 MG PO QHS, (Reported) Sertraline Hcl (Zoloft) 100 Mg Tab, 100 MG PO QHS, (Reported) Allergies Coded Allergies: Penicillins (Verified Allergy, Unknown, 06/24/12) Penicillins Cross Reactors (Verified Allergy, Unknown, 06/24/12) Jayy Parks MD Oct 02, 2016 12:16
== END 2016-10-02 15:07 | disposition home health service (06) | DRG 253 ==
LOC: M IRPRO 09:21 → M MS5PR 13:15 → M ICU 09-17 10:10 → M MS5PR 09-18 10:00
PROVIDERS: ADMIT Surgery Vascular Surgery; ATTEND Surgery Vascular Surgery
PROC: 04CM0ZZ Extirpation of Matter from Right Popliteal Artery, Open Approach (ICD-10-PCS; 2016-09-17)
PROC: 0HBKXZZ Excision of Right Lower Leg Skin, External Approach (ICD-10-PCS; 2016-09-17)
PROC: 041K0JL Bypass Right Femoral Artery to Popliteal Artery with Synthetic Substitute, Open Approach (ICD-10-PCS; principal; 2016-09-17 07:30)
PROC: 30233N1 Transfusion of Nonautologous Red Blood Cells into Peripheral Vein, Percutaneous Approach (ICD-10-PCS; 2016-09-20)
DX: T82.856A Stenosis of peripheral vascular stent, initial encounter (principal); Z68.42 Body mass index [BMI] 45.0-49.9, adult; I87.311 Chronic venous hypertension (idiopathic) with ulcer of right lower extremity; I69.351 Hemiplegia and hemiparesis following cerebral infarction affecting right dominant side; I87.2 Venous insufficiency (chronic) (peripheral); E66.01 Morbid (severe) obesity due to excess calories; I70.291 Other atherosclerosis of native arteries of extremities, right leg; L97.519 Non-pressure chronic ulcer of other part of right foot with unspecified severity; I99.8 Other disorder of circulatory system; I69.320 Aphasia following cerebral infarction; E78.5 Hyperlipidemia, unspecified; I69.322 Dysarthria following cerebral infarction; I10 Essential (primary) hypertension; I48.91 Unspecified atrial fibrillation; M54.9 Dorsalgia, unspecified; Z82.49 Family history of ischemic heart disease and other diseases of the circulatory system; Z80.9 Family history of malignant neoplasm, unspecified; Z83.3 Family history of diabetes mellitus; Z87.891 Personal history of nicotine dependence; Z79.899 Other long term (current) drug therapy; Y71.2 Prosthetic and other implants, materials and accessory cardiovascular devices associated with adverse incidents

== ENCOUNTER → 2016-12-04 | Outpatient (REF) | payer MEDICARE, MEDICAID ==
[~2016-12-04] MED LIST changes: +ASPI325T PO; +METO25TA4 PO; +VITA-121 PO; +VITA500T PO
[2016-12-04 13:40] LABS: CALCIUM OXALATE CRYSTALS SMALL
== END ==
LOC: M LAB REF 11:27
PROVIDERS: ATTEND Internal Medicine Nephrology
DX: N18.3 Chronic kidney disease, stage 3 (moderate) (principal); N25.81 Secondary hyperparathyroidism of renal origin; E55.9 Vitamin D deficiency, unspecified

== ENCOUNTER → 2016-12-22 | Outpatient (REF) | payer MEDICARE, MEDICAID | LOC: M LAB REF 16:07 | PROVIDERS: ATTEND Surgery | DX: I87.311 Chronic venous hypertension (idiopathic) with ulcer of right lower extremity (principal); L97.811 Non-pressure chronic ulcer of other part of right lower leg limited to breakdown of skin ==

== ENCOUNTER 2017-02-28 14:00 | Inpatient (IN) | payer MEDICARE, MEDICAID ==
[2017-02-28] VITALS (14 sets, daily range): BP systolic 100–195; BP diastolic 49–75
[~2017-02-28] VITALS: Ht 149.9 cm; Wt 105.0 kg
[2017-02-28] MEDS ORDERED: WARF-23 PO (14:24)
[2017-02-28] MEDS ORDERED: SMZ/TMP PO (14:24)
[2017-02-28] MEDS ORDERED: METO1TAB87 PO (14:24)
[2017-02-28] MEDS ORDERED: NS 1,000 ML IV SCH ×2 (14:45→17:30)
[2017-02-28] MEDS ORDERED: PANTOPRAZOLE SODIUM 40 MG in D5W 50 ML IV SCH (14:45)
[2017-02-28] MEDS ORDERED: PANTOPRAZOLE 40MG INJ (PROTONIX) (C9113) IV ONE (14:45)
[2017-02-28] MEDS ORDERED: ONDANSETRON 4MG/2ML VIAL (J2405) IV ONE (16:00)
[2017-02-28] MEDS ORDERED: MORPHINE 2 MG/ML 1ML SYRINGE IV ONE (16:00)
[2017-02-28 16:04] LABS: BASO # 0.1 10^3/uL (0.0-0.2); BASO % 0.5 % (0.0-1.0); EOS # 0.1 10^3/uL (0.0-0.50); EOS % 0.7 % (0.0-3.0); IMMATURE GRANULOCYTE % 0.8 % (0-0); LYMPH # 1.9 10^3/uL (1.5-4.5); LYMPH % 17.8 % (24.0-44.0); MEAN CORPUSCULAR HEMOGLOBIN 25.1 pg (27.0-33.0); MEAN CORPUSCULAR HGB CONC 30.4 g/dl (32.0-36.5); MEAN CORPUSCULAR VOLUME 82.5 fl (80.0-96.0); MONO # 0.6 10^3/uL (0.0-0.8); NEUTROPHILS # 7.9 10^3/uL (1.8-7.7); NEUTROPHILS % 74.2 % (36.0-66.0); PLATELET COUNT, AUTOMATED 400 10^3/uL (150-450); RED CELL DISTRIBUTION WIDTH 19.3 % (11.5-14.5); WHITE BLOOD COUNT 10.7 10^3/uL (4.0-10.0)
[2017-02-28 16:14] LABS: INR 3.46
[2017-02-28 16:24] LABS: CALCIUM LEVEL 9.3 MG/DL (8.8-10.2); CREATININE FOR GFR 2.2 MG/DL (0.55-1.02); GLOMERULAR FILTRATION RATE 23.8 (>45)
[2017-02-28 16:31] LABS: POTASSIUM SERUM 5.7 MEQ/L (3.5-5.1)
[2017-02-28] MEDS ORDERED: NS 1,000 ML IV ONE (17:00)
[2017-02-28] MEDS ORDERED: MORPHINE 4 MG/ML 1ML SYRINGE IV ONE (17:00)
[2017-02-28] MEDS ORDERED: ONDANSETRON 4MG/2ML VIAL (J2405) IV PRN (17:15)
[2017-02-28] MEDS: PANTOPRAZOLE SODIUM 40 MG in D5W 50 ML IV SCH ×2 (18:49→23:49)
--- NOTE | 2017-02-28 19:20 | HPEPDOC ---
[facility] Medical History & Physical Date of Admission Feb 28, 2017 Primary Care Physician: A Other Provider PCP: Anu GONZALEZ VASCULAR SURGEON: Gia ANDERSON MD WOUND CARE SURGEON: MD GABRIEL Attending Physician: VICENTE STEPHENS MD History and Physical CHIEF COMPLAINT: Bright red blood per rectum HISTORY OF PRESENT ILLNESS: 67-year-old female with history of stroke, history of atrial fibrillation and anticoagulated with Coumadin, presents after 6 days of ongoing melena and occasional hematochezia at home. Is concerned because she' s been lightheaded and dizzy. She denies any chest pain, dyspnea on exertion, short of breath, wheeze, abdominal pain, no nausea or vomiting. Additionally, she has a history of right lower extremity pain and verbal vascular disease, which she seen Dr. Anderson for as well. Dr. Ambrosio for wound care. She is stool heme positive, hemoglobin is 6-1/2. She is a decrease from 9-10 a few months ago. Her INR is supratherapeutic. She denies any alcohol use, denies history of GI bleed in the past, no history of liver disease. She was typed, crossed, and beginning to transfuse one of 2 units of packed red blood cells in the emergency department, and hospitalist was called for admission. Additionally, Dr. Ambrosio has had the patient taking Bactrim for her chronic right lower extremity wound. I'm noting that she has hyperkalemia, acute renal failure, likely secondary to acute blood loss anemia, but we'll need to stop the Bactrim as well. PAST MEDICAL HISTORY: 1. CVA with residual aphasia. 2. Dyslipidemia. 3. Hypertension. 4. Carotid disease. 5. Depression. 6. Chronic back pain. 7. Hypertension. 8. Restless leg syndrome. 9. Chronic right lower extremity wound, for which she follows with Dr. Ambrosio. PAST SURGICAL HISTORY: 1. Left carotid endarterectomy. 2. Right leg venous stripping. 3. Left femoropopliteal arterial bypass graft August 2016. 4. Mynx closure of the left common femoral arteriotomy August 2016 SOCIAL HISTORY: She is a former smoker. She lives with her daughter, whom accompanies her in the emergency room and helps to give the history. Denies alcohol or illicit drug use. FAMILY HISTORY: Noncontributory ALLERGIES: Please see below. REVIEW OF SYSTEMS: CONSTITUTIONAL: No fever, chills, weight loss, nausea or vomiting . HEENT: No headache, lightheadedness, blurred or loss of vision. No difficulty with speech or swallow. CARDIOVASCULAR: History of atrial fibrillation with relatively good rate control , and has been anticoagulated with Coumadin. No chest pain, palpitations, paroxysmal nocturnal dyspnea or lower extremity edema RESPIRATORY: No cough, productive sputum, wheeze or hemoptysis GENITOURINARY: No dysuria, frequency, or discharge, no bladder incontinence. MUSCULOSKELETAL: Ongoing issues with chronic right lower extremity wound and chronic pain. No bone, muscle or joint pain. GASTROINTESTINAL: Melena with hematochezia for 5-6 days. No nausea, vomiting. No bowel incontinence. SKIN: No complaint of lesions, abrasions or rashes NEUROLOGICAL: No blurred vision, headaches, paraesthesias or paralysis PSYCHIATRIC: No depression, anxiety, audiovisual hallucinations. No suicidal ideations. ENDOCRINE: Denies history of diabetes or thyroid disorder. No history of endocrine abnormalities. HEMATOLOGIC/ONCOLOGIC: No bleeding or bruising disorders. No history of VTE LYMPHATIC: No lumps, bumps or swelling of neck, axilla or groin. No night sweats or weight loss. HOME MEDICATIONS: Please see below. PHYSICAL EXAMINATION: VITAL SIGNS: Please see below. GENERAL: NAD, A&OX3, Pleasant HEENT: PERRLA, throat clear, neck supple, no JVD CARDIOVASCULAR: RRR RESPIRATORY: CTA Bilaterally ABDOMINAL: soft, NT/ND normoactive bowel sounds EXTREMITIES: Right lower extremity wrapped with wound dressing and Heriberto wrap. No edema/no calf tenderness NEUROLOGICAL: CN'S II-XII grossly intact PSYCHOLOGICAL: negative LABORATORY DATA: See below. IMAGING: Portable chest x-ray: Cardiomegaly with no no acute infiltrate or consolidation Twelve-lead EKG: Atrial fibrillation, rate controlled with ventricular rate of 98 bpm, no acute ST-T wave abnormality. MICROBIOLOGY: Please see below. IMPRESSION: 67-year-old female presents to the emergency department with melena and hematochezia for 6 days now with acute blood loss, symptomatic anemia requiring hospital admission. PROBLEM LIST: 1. Upper GI with acute blood loss/symptomatic anemia: Requiring blood transfusion and GI consult 2. Supratherapeutic anticoagulation with Coumadin requiring FFP 3. Acute kidney injury: Multifactorial involving acute blood loss anemia, hypovolemia, Bactrim use. 4. Hyperkalemia: Multi-factorial as above, hold nephrotoxic drugs and give IV fluids. 5. CVA with residual aphasia. 6. Dyslipidemia. 7. Hypertension. 8. Carotid disease. 9. Depression. 10. Chronic back pain. 11. Hypertension. 12. Restless leg syndrome. 13. Chronic right lower extremity wound, for which she follows with Dr. Ambrosio. PLAN: Admit to ICU. She has been consented typed and crossed for blood, we'll give 2 units packed red blood cells and 1 of FFP. Hold Coumadin, aspirin and heparin products. Consult Dr. Zapien for GI consult. She will likely need endoscopy in the next 24 hours IV fluids, hold any nephrotoxic drugs including Bactrim /Lisinopril/ Lasix. Consider replacing bactrim with doxycycline but recommend we can contact Dr. Ambrosio in the morning regarding antibiotics for her lower extremity. Consider PT/nursing wound consult while she is hospitalized. Concerning the hyperkalemia and acute kidney injury: She'll be placed on telemetry. In repeat renal profile at midnight. I elected not to give Kayexalate at this point, we'll try hydrating her and if her potassium is still elevated or worse at midnight. We may want to consider Kayexalate if repeat labs necessitate. Check H&H every 6 hours, we'll continue to transfuse if necessary. We'll check morning CBC, BMP, PT/INR. DVT PROPHYLAXIS: TEDS and sequentials. Hold Coumadin and no heparin products due to upper GI bleed PROGNSIS: Guarded. DISPOSITION: Expect hospitalization greater than 2 midnights. Vital Signs Vital Signs Date Time Temp Pulse Resp B/P (MAP) Pulse Ox O2 Delivery O2 Flow Rate FiO2 02/28/17 17:32 98.0 109 20 196/78 (117) 98 Room Air Laboratory Data Labs 24H Laboratory Tests 2 02/28/17 15:42: Immature Granulocyte % (Auto) 0.8H, White Blood Count 10.7H, Red Blood Count 2.63L, Hemoglobin 6.6*L, Hematocrit 21.7L, Mean Corpuscular Volume 82.5, Mean Corpuscular Hemoglobin 25.1L, Mean Corpuscular Hemoglobin Concent 30.4L, Red Cell Distribution Width 19.3H, Platelet Count 400, Neutrophils (%) (Auto) 74.2H , Lymphocytes (%) (Auto) 17.8L, Monocytes (%) (Auto) 6.0H, Eosinophils (%) (Auto ) 0.7, Basophils (%) (Auto) 0.5, Neutrophils # (Auto) 7.9H, Lymphocytes # (Auto ) 1.9, Monocytes # (Auto) 0.6, Eosinophils # (Auto) 0.1, Basophils # (Auto) 0.1 , Immature Granulocyte # (Auto) 0.1H, Nucleated Red Blood Cells % (auto) 0.2H, Prothrombin Time 36.5H, Prothromb Time International Ratio 3.46, Activated Partial Thromboplast Time 49.6H, Anion Gap 11, Glomerular Filtration Rate 23.8L , Blood Urea Nitrogen 104H, Creatinine 2.20H, Sodium Level 141, Potassium Level 5.7H, Chloride Level 109H, Carbon Dioxide Level 21, Calcium Level 9.3 CBC/BMP Laboratory Tests 02/28/17 15:42 Red Blood Count 2.63 L, Mean Corpuscular Volume 82.5, Mean Corpuscular Hemoglobin 25.1 L, Mean Corpuscular Hemoglobin Concent 30.4 L, Red Cell Distribution Width 19.3 H, Neutrophils (%) (Auto) 74.2 H, Lymphocytes (%) (Auto ) 17.8 L, Monocytes (%) (Auto) 6.0 H, Eosinophils (%) (Auto) 0.7, Basophils (%) (Auto) 0.5, Neutrophils # (Auto) 7.9 H, Lymphocytes # (Auto) 1.9, Monocytes # ( Auto) 0.6, Eosinophils # (Auto) 0.1, Basophils # (Auto) 0.1, Calcium Level 9.3 Home Medications Scheduled Ascorbic Acid (Vitamin C) 500 Mg Tab, 500 MG PO DAILY Aspirin (Aspirin) 325 Mg Tab, 325 MG PO DAILY Baclofen (Baclofen) 10 Mg Tab, 10 MG PO TID Calcium/Vitamin D (Calcium 500+D 500-400 mg-Unit) 1 Tab Tab, 1 TAB PO DAILY Cholecalciferol (Vitamin D-3) 1,000 Unit Tab, 1,000 UNIT PO DAILY Furosemide (Furosemide) 40 Mg Tab, 40 MG PO DAILY Lisinopril (Lisinopril) 20 Mg Tab, 20 MG PO BID Metoprolol Tartrate (Metoprolol Tartrate) 25 Mg Tab, 25 MG PO BID Ropinirole Hydrochloride (Ropinirole HCl) 0.25 Mg Tab, 0.25 MG PO QHS Rosuvastatin Calcium (Crestor) 20 Mg Tab, 20 MG PO QHS Sertraline Hcl (Zoloft) 100 Mg Tab, 100 MG PO QHS Warfarin Sod (Warfarin Sodium) 5 Mg Tab, 2.5 MG PO QPM Allergies Coded Allergies: Penicillins (Verified Allergy, Unknown, 06/24/12) Penicillins Cross Reactors (Verified Allergy, Unknown, 06/24/12) SWAPNIL COLLADO DO Feb 28, 2017 19:20
--- NOTE | 2017-02-28 20:43 | CR ---
DATE OF CONSULTATION: 02/28/2017 STATUS: Inpatient. REQUESTING PHYSICIAN: Hospitalist service. REASON FOR CONSULTATION: Anemia, orthostasis. HISTORY OF PRESENT ILLNESS: Mrs. Harris is a 67-year-old female with past medical history significant for atrial fibrillation, previous cerebrovascular accident (CVA) on Coumadin chronically. She presents to the emergency room complaining of weakness and fatigue for the past two to three to four days, along with some dark stools and maroon-appearing stools. She has been feeling unwell for some time which she is blaming on her chronic vascular insufficiency in her right lower leg, for which she is often on antibiotics and is also followed in wound care with Dr. Ambrosio. On presentation, she was noted to be tachycardiac at a heart rate of 110-115. With a hemoglobin of 6.6, there were orthostatics which were positive for heart rate. The patient denies any frequent melanotic stools. Her last bowel movement was this morning and as stated above, was noted to be very dark, perhaps maroonish. PAST MEDICAL HISTORY: 1. Morbid obesity. 2. Atrial fibrillation. 3. CVA with expressive aphasia. 4. Recently diagnosed renal mass. She is awaiting surgery. 5. Right lower extremity chronic wound thought to be arterial insufficiency. PAST SURGICAL HISTORY: 1. Attempted angioplasty of right femoral artery which failed and ended up in a right-sided femoral-popliteal (fem-pop) bypass. 2. Right knee fracture 3. Colonoscopy to cecum 06/2015 showing sigmoid diverticulosis and a few small tubular adenomas in the rectosigmoid area. SOCIAL HISTORY: Negative for significant alcohol, negative for tobacco. FAMILY HISTORY: Noncontributory. REVIEW OF SYSTEMS: General: Positive for weakness, fatigue, poor appetite. Cardiac: Negative for orthopnea, paroxysmal nocturnal dyspnea (PND). Gastrointestinal (GI): As per history of present illness (HPI). Pulmonary: Negative for hemoptysis, pleuritic-type chest pain. Musculoskeletal: Right lower extremity pain with spasms related to her chronic wound. Urologic: Positive for recent renal mass awaiting surgery but otherwise asymptomatic. Neurological: Positive for dysarthria, expressive aphasia. PHYSICAL EXAMINATION: GENERAL: She is awake, alert and oriented times three. She is not in any distress. She does not appear toxic. She is comfortable in bed. She answers questions in a halting fashion consistent with her history of CVA dysarthria. HEENT: Negative for oral thrush. Negative for lymphadenopathy. NECK: Supple. No lymphadenopathy. CHEST: Clear bilaterally. HEART: Tachycardiac without murmur or gallop. ABDOMEN: Obese, soft, nontender. Good bowel sounds. No masses appreciable. EXTREMITIES: Left lower extremity is normal without edema. Pulses are palpable. Right lower extremity is bandaged. I did not remove. NEUROLOGICAL: She is awake, alert and oriented times three with dysarthric speech. She moves all extremities equally and bilaterally. MEDICATIONS: Aspirin 325 daily, Zoloft, metoprolol, lisinopril, Crestor, Lasix, Diovan and Coumadin. LABORATORY DATA: INR of 3.46, hemoglobin of 6.6. BUN 104, creatinine 2.2. IMPRESSION: A 67-year-old female on chronic Coumadin presents with weakness, fatigue for several days, with dark possibly maroon stools, with orthostatic blood pressures and a hemoglobin of 6.6. Differential diagnosis includes a lower gastrointestinal (GI) bleed versus a rapid upper GI bleed. RECOMMENDATIONS: The patient will need stabilization and correction of her INR with fresh frozen plasma and at least two units of packed red blood cells (RBCs). Once stabilized , upper endoscopy will ensue. (I note that she is up to date with colonoscopy showing colonic diverticulosis as of June 2015. This will be discussed depending again upon upper findings.) LUIS MIGUEL
[2017-02-28] MEDS: ROSUVASTATIN 10 MG TAB (CRESTOR) PO SCH (21:00)
[2017-02-28] MEDS: METOPROLOL TART 25 MG TABLET PO SCH (21:00)
[2017-02-28] MEDS: SERTRALINE 100 MG TAB PO SCH (21:00)
[2017-02-28] MEDS: BACLOFEN 10 MG TAB PO SCH (21:00)
[2017-02-28] MEDS: rOPINIRole 0.25 MG TAB(REQUIP) PO SCH (21:00)
[2017-02-28] MEDS: MORPHINE 2 MG/ML 1ML SYRINGE IV PRN (21:05)
[2017-02-28] MEDS ORDERED: FUROSEMIDE 40 MG/4 ML VIAL (J1940) IV STA (21:59)
[2017-02-28] MEDS ORDERED: METOPROLOL 5 MG/5 ML VIAL IV PRN (22:15)
--- NOTE | 2017-02-28 22:47 | IPN ---
DATE: 02/28/2017 ADDENDUM TO THE HISTORY AND PHYSICAL: The patient has been admitted the intensive care unit (ICU). Her pulse rate is 121, temperature is 98, respiratory rate is 24, blood pressure 195/74 with SPO2 is 93%. She appears to be in no acute distress. She is resting more comfortably at this point. She has had one unit of packed red blood cells with a second pending, and she received a pheresis of fresh frozen plasma (FFP). We did add on a troponin. She is not complaining of any chest pain or any cardiac-related issues, shortness of breath or dyspnea, and her admission electrocardiogram (EKG) did show atrial fibrillation with no acute ST-T wave changes at that time. I will go ahead and give her dose of intravenous (IV) metoprolol since she is tachycardiac and her blood pressure does seem to be quite elevated. The plan for this evening is Dr. Sanchez does hope to take her to the operating room (OR) for endoscopy to determine where her source of bleeding is. If this is felt to be an urgent need, I would advise that she go to the OR. She does not currently appear to have any cardiac issues other than the rapid ventricular rate which may be related both to the discomfort she is complaining of with her leg pain, but she is not complaining of any cardiac related symptoms.
[2017-03-01] VITALS (11 sets, daily range): BP systolic 102–140; BP diastolic 51–77
[2017-03-01 00:44] LABS: MEAN CORPUSCULAR HEMOGLOBIN 27.2 pg (27.0-33.0); MEAN CORPUSCULAR HGB CONC 32.9 g/dl (32.0-36.5); MEAN CORPUSCULAR VOLUME 82.7 fl (80.0-96.0); RED CELL DISTRIBUTION WIDTH 17.2 % (11.5-14.5); WHITE BLOOD COUNT 10.6 10^3/uL (4.0-10.0)
[2017-03-01 00:47] LABS: PLATELET COUNT, AUTOMATED 258 10^3/uL (150-450)
[2017-03-01 00:54] LABS: INR 1.51
[2017-03-01 02:06] LABS: CALCIUM LEVEL 8.4 MG/DL (8.8-10.2); CREATININE FOR GFR 2.07 MG/DL (0.55-1.02); GLOMERULAR FILTRATION RATE 25.6 (>45); POTASSIUM SERUM 4.5 MEQ/L (3.5-5.1)
[2017-03-01 02:07] LABS: ALBUMIN 3.2 GM/DL (3.2-5.2); PHOSPHORUS LEVEL 5.1 MG/DL (2.5-4.9)
[2017-03-01] MEDS ORDERED: CETACAINE SPRAY 5GM As Ordered ONE (02:30)
[2017-03-01] MEDS ORDERED: PROPOFOL 200 MG/20 ML VIAL As Ordered ONE (03:16)
[2017-03-01] MEDS ORDERED: LIDOCAINE 2% INJ 100 MG/5 ML SDV (FOR ANES.) As Ordered ONE (03:16)
--- NOTE | 2017-03-01 03:55 | ROOR ---
Patient Name: Sallie Harris Procedure Date: 03/01/2017 3:37 AM Date of : 1950 Age: 67 Gender: Female Note Status: Finalized Procedure: Upper GI endoscopy Indications: Acute post hemorrhagic anemia Providers: Jose SANCHEZ MD Referring MD: 2. Inpatient 2. Inpatient, NICHOLE PEREZ Requesting Provider: Medicines: Monitored Anesthesia Care Complications: No immediate complications. Procedure: Pre-Anesthesia Assessment: - The heart rate, respiratory rate, oxygen saturations, blood pressure, adequacy of pulmonary ventilation, and response to care were monitored throughout the procedure. The Endoscope was introduced through the mouth, and advanced to the second part of duodenum. The upper GI endoscopy was accomplished without difficulty. The patient tolerated the procedure well. Findings: The examined esophagus was normal. The proximal esophagus was mildly tortuous. Two non-obstructing non-bleeding cratered gastric ulcers with pigmented material were found in the gastric antrum. The largest lesion was 10 mm in largest dimension. There is no evidence of perforation. Biopsies were taken with a cold forceps for histology. The examined duodenum was normal. Impression: - Stomach: Two cratered antral gastric ulcers (6 mm and 10 mm) with pigmented material. Both ulcer bases are covered with witeish exudate. The larger ulcer has small spot of brown pigmented material on its margin. There is no visible vessel, there is no red spot. The ulcers are deemed low risk for rebleeding). Margins were biopsied. - Tortuous but otherwise normal esophagus. - Normal examined duodenum. Recommendation: - Observe patient's clinical course. - I anticipate no further need for intervention. - Clear liquid diet today. - Use a proton pump inhibitor IV today change to po tomorrow. - Monitor H&H and vitals closely for signis of rebleeding. - Return patient to ICU for ongoing care. Jose Sanchez MD Jose SANCHEZ MD 03/01/2017 3:54:49 AM This report has been signed electronically. Number of Addenda: 0 Note Initiated On: 03/01/2017 3:37 AM Estimated Blood Loss: Estimated blood loss: none.
[2017-03-01] MEDS ORDERED: LR 1,000 ML IV SCH (04:00)
[2017-03-01] MEDS: MORPHINE 2 MG/ML 1ML SYRINGE IV PRN ×3 (04:23→18:21)
[2017-03-01 04:41] LABS: MEAN CORPUSCULAR HEMOGLOBIN 26.6 pg (27.0-33.0); MEAN CORPUSCULAR HGB CONC 32.8 g/dl (32.0-36.5); MEAN CORPUSCULAR VOLUME 81.1 fl (80.0-96.0); PLATELET COUNT, AUTOMATED 267 10^3/uL (150-450); WHITE BLOOD COUNT 9.4 10^3/uL (4.0-10.0)
[2017-03-01 04:54] LABS: INR 1.49
[2017-03-01 05:02] LABS: CALCIUM LEVEL 8.5 MG/DL (8.8-10.2); CREATININE FOR GFR 2.05 MG/DL (0.55-1.02); GLOMERULAR FILTRATION RATE 25.9 (>45); POTASSIUM SERUM 4.5 MEQ/L (3.5-5.1)
[2017-03-01] MEDS: PANTOPRAZOLE SODIUM 40 MG in D5W 50 ML IV SCH ×2 (06:11→11:03)
--- NOTE | 2017-03-01 07:15 | ECGEPIP ---
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
--- NOTE | 2017-03-01 07:26 | REP ---
REASON: Dyspnea and GI bleed. COMPARISON: 09/15/2016 The technique utilized in obtaining the radiograph has magnified the cardiac silhouette and accentuated the interstitial markings. There is cardiomegaly accentuated by technique. The lungs diez are clear. IMPRESSION: Cardiomegaly. No acute disease. Signed by Yeison French DO 03/01/2017 02:06 P
[2017-03-01] MEDS: BACLOFEN 10 MG TAB PO SCH ×3 (08:23→20:46)
[2017-03-01] MEDS: METOPROLOL TART 25 MG TABLET PO SCH ×2 (09:00→20:44)
--- NOTE | 2017-03-01 09:09 | IPNPDOC ---
Subjective Date Seen The patient was seen on 03/01/17. Subjective Chief Complaint/HPI The patient is a 67-year-old female admitted with a reason for visit of Acute Blood Loss Anemia, Ugi Bleed. Events since last encounter Does not offer any complaints today , no furthr kyung. no fever or chills, no chest pain or sob , no abdominal pain , nuasea or vomiting. Objective Physical Examination General Exam: Positive: Alert, Cooperative, No Acute Distress Eye Exam: Positive: PERRLA, Conjunctiva & lids normal, EOMI, Negative: Sclera icteric ENT Exam: Positive: Atraumatic, Mucous membr. moist/pink, Pharynx Normal Neck Exam: Positive: Supple, Negative: JVD, thyromegaly Chest Exam: Positive: Clear to auscultation, Normal air movement Heart Exam: Positive: Rate Normal, Regular Rhythm, Normal S1, Normal S2, Negative: Murmurs, Rubs Telemetry: Positive: No significant arrhythmia Abdomen Exam: Positive: Normal bowel sounds, Soft, Negative: Tenderness, Hepatospenomegaly Extremity Exam: Positive: Edema, Tenderness (right leg) Skin Exam: Positive: Other skin issue (chronic venous stasis ulcers on right ) Neuro Exam: Positive: Other (right residual paresis) Assessment /Plan Problems (1) Upper GI bleed Status: Acute Problem Text: Hd EGD on 02/28 found to have 2 non bleeding gastric ulcers. INR was supratherapeutic on admission recieved 4 units of ffp Patient may have bled a week ago when her symptoms started continue with protonix. continue to hold ASA and coumadin will advance diet hh stable will continue to monitor. (2) Acute blood loss anemia Status: Acute Problem Text: received 3 units of PRBC . HH stable. also received 4 units of FFP (3) Acute renal failure Status: Acute Problem Text: due to acute gid, severe anemia and may have had undocumented hypotensive episode. On the back ground of ACEi and Lasix. will continue to hold ACEI and lasix. (4) Chronic atrial fibrillation Status: Chronic Problem Text: will continue with metoprolol for rate control coumadin on hold. (5) Ischaemic ulcer of lower extremity Status: Chronic Problem Text: HAS CHRONIC ARTERIAL WOUND INVOLVING THE RIGHT LOWER EXTREMITY PATIENT, HAD ATTEMPTED ANGIOPLASTY AND THEN REQUIRED A DISTAL BYPASS WHICH WAS SUCCESS. PATIENT HAS DEPENDENT GRAVITATIONAL EDEMA AND IS BEING ASSESSED FOR VENOUS REFLUX. (6) Hyperlipidemia Status: Chronic Problem Text: continue with statin (7) Hypertension Status: Chronic Problem Text: Has been borderline hypotensive since admission will continue to hold lisinopril and lasix. will continue with metoprolol with hold parameters. (8) CVA, old, hemiparesis Status: Chronic Problem Text: right residual hemiparesis . uses a cane and WC to mobilize. will continue with baclofen. (9) Carotid arterial disease Status: Chronic Problem Text: status post left carotid endarterectomy. (10) PVD (peripheral vascular disease) Status: Chronic Problem Text: status post femoropopliteal bypass on the left and distal bypass on the right (11) Nodule of kidney Status: Chronic Problem Text: right irregularly enhancing nodule suspicious for malignancy scheduled for a partial nephrectomy. (12) Lung nodule Status: Chronic Problem Text: 6 mm nodule on the left lower lobe stable since 2012. (13) Venous stasis ulcer Status: Chronic Problem Text: on the right lower extremity. Plan/VTE VTE Prophylaxis Ordered?: Yes VS, I&O, 24H, Fishbone Vital Signs/I&O Vital Signs Date Time Temp Pulse Resp B/P (MAP) Pulse Ox O2 Delivery O2 Flow Rate FiO2 03/01/17 05:06 20 98 Nasal Cannula 3.0 03/01/17 04:52 99.0 108 111/56 (74) Laboratory Data 24H LABS Laboratory Tests 2 02/28/17 15:42: Immature Granulocyte % (Auto) 0.8H, White Blood Count 10.7H, Red Blood Count 2.63L, Hemoglobin 6.6*L, Hematocrit 21.7L, Mean Corpuscular Volume 82.5, Mean Corpuscular Hemoglobin 25.1L, Mean Corpuscular Hemoglobin Concent 30.4L, Red Cell Distribution Width 19.3H, Platelet Count 400, Neutrophils (%) (Auto) 74.2H , Lymphocytes (%) (Auto) 17.8L, Monocytes (%) (Auto) 6.0H, Eosinophils (%) (Auto ) 0.7, Basophils (%) (Auto) 0.5, Neutrophils # (Auto) 7.9H, Lymphocytes # (Auto ) 1.9, Monocytes # (Auto) 0.6, Eosinophils # (Auto) 0.1, Basophils # (Auto) 0.1 , Immature Granulocyte # (Auto) 0.1H, Nucleated Red Blood Cells % (auto) 0.2H, Prothrombin Time 36.5H, Prothromb Time International Ratio 3.46, Activated Partial Thromboplast Time 49.6H, Anion Gap 11, Glomerular Filtration Rate 23.8L , Blood Urea Nitrogen 104H, Creatinine 2.20H, Sodium Level 141, Potassium Level 5.7H, Chloride Level 109H, Carbon Dioxide Level 21, Calcium Level 9.3 03/01/17 00:33: Prothrombin Time 18.6H, Prothromb Time International Ratio 1.51 03/01/17 00:34: Nucleated Red Blood Cells % (auto) 0.0 03/01/17 01:39: Anion Gap 7L, Glomerular Filtration Rate 25.6L, Blood Urea Nitrogen 91H, Creatinine 2.07H, Sodium Level 144, Potassium Level 4.5#, Chloride Level 111H, Carbon Dioxide Level 26, Calcium Level 8.4L, Phosphorus Level 5.1H, Troponin I 0.15H, Albumin 3.2 03/01/17 04:32: Nucleated Red Blood Cells % (auto) 0.2H, Prothrombin Time 18.4H, Prothromb Time International Ratio 1.49, Anion Gap 9, Glomerular Filtration Rate 25.9L, Blood Urea Nitrogen 83H, Creatinine 2.05H, Sodium Level 144, Potassium Level 4.5, Chloride Level 111H, Carbon Dioxide Level 24, Calcium Level 8.5L CBC/BMP Laboratory Tests 02/28/17 15:42 Red Blood Count 2.63 L, Mean Corpuscular Volume 82.5, Mean Corpuscular Hemoglobin 25.1 L, Mean Corpuscular Hemoglobin Concent 30.4 L, Red Cell Distribution Width 19.3 H, Neutrophils (%) (Auto) 74.2 H, Lymphocytes (%) (Auto ) 17.8 L, Monocytes (%) (Auto) 6.0 H, Eosinophils (%) (Auto) 0.7, Basophils (%) (Auto) 0.5, Neutrophils # (Auto) 7.9 H, Lymphocytes # (Auto) 1.9, Monocytes # ( Auto) 0.6, Eosinophils # (Auto) 0.1, Basophils # (Auto) 0.1, Calcium Level 9.3 03/01/17 00:34 Red Blood Count 3.01 L, Mean Corpuscular Volume 82.7, Mean Corpuscular Hemoglobin 27.2, Mean Corpuscular Hemoglobin Concent 32.9, Red Cell Distribution Width 17.2 H 03/01/17 01:39 Anion Gap 7 L 03/01/17 04:32 Red Blood Count 3.23 L, Mean Corpuscular Volume 81.1, Mean Corpuscular Hemoglobin 26.6 L, Mean Corpuscular Hemoglobin Concent 32.8, Red Cell Distribution Width 17.0 H, Calcium Level 8.5 L VICENTE STEPHENS MD Mar 01, 2017 09:09
[2017-03-01] MEDS ORDERED: SLF 3 ML SYR IV PRN (17:45)
[2017-03-01] MEDS: ROSUVASTATIN 10 MG TAB (CRESTOR) PO SCH (20:38)
[2017-03-01] MEDS: rOPINIRole 0.25 MG TAB(REQUIP) PO SCH (20:38)
[2017-03-01] MEDS: SERTRALINE 100 MG TAB PO SCH (20:44)
[2017-03-01] MEDS: PANTOPRAZOLE 40MG INJ (PROTONIX) (C9113) IV SCH (20:45)
[2017-03-01] MEDS: SLF 3 ML SYR IV SCH (20:46)
[2017-03-02] MEDS: MORPHINE 2 MG/ML 1ML SYRINGE IV PRN ×5 (02:29→23:44)
[2017-03-02] MEDS: SLF 3 ML SYR IV SCH ×3 (05:17→22:00)
[2017-03-02 06:00] VITALS: BP 140/70
[2017-03-02 06:55] LABS: MEAN CORPUSCULAR HEMOGLOBIN 27.6 pg (27.0-33.0); MEAN CORPUSCULAR HGB CONC 32.2 g/dl (32.0-36.5); MEAN CORPUSCULAR VOLUME 85.6 fl (80.0-96.0); PLATELET COUNT, AUTOMATED 257 10^3/uL (150-450); RED CELL DISTRIBUTION WIDTH 18.6 % (11.5-14.5); WHITE BLOOD COUNT 9.2 10^3/uL (4.0-10.0)
[2017-03-02 07:07] LABS: INR 1.61
[2017-03-02 07:15] LABS: CALCIUM LEVEL 8.2 MG/DL (8.8-10.2); CREATININE FOR GFR 1.42 MG/DL (0.55-1.02); GLOMERULAR FILTRATION RATE 39.5 (>45); POTASSIUM SERUM 4.7 MEQ/L (3.5-5.1)
[2017-03-02] MEDS: BACLOFEN 10 MG TAB PO SCH ×3 (09:38→21:20)
[2017-03-02] MEDS: PANTOPRAZOLE 40MG INJ (PROTONIX) (C9113) IV SCH ×2 (09:39→21:19)
[2017-03-02] MEDS: METOPROLOL TART 25 MG TABLET PO SCH ×2 (09:39→21:20)
[2017-03-02 14:00] VITALS: BP 134/63
[2017-03-02] MEDS: NYSTATIN 100,000 UNITS/GM TOPICAL PWD 15 GM TOP PRN (14:09)
[2017-03-02] MEDS ORDERED: NS 1,000 ML IV SCH (16:15)
--- NOTE | 2017-03-02 16:16 | IPNPDOC ---
Subjective Date Seen The patient was seen on 03/02/17. Subjective Chief Complaint/HPI The patient is a 67-year-old female admitted with a reason for visit of Acute Blood Loss Anemia, Ugi Bleed. Events since last encounter Patient seen and examined at the bedside. Denies any more dark colored stools. States that she is tolerating a by mouth diet without any acute complaints. No overnight events noted as per house staff. Objective Physical Examination General Exam: Positive: Alert, Cooperative, No Acute Distress Eye Exam: Negative: Sclera icteric ENT Exam: Positive: Atraumatic, Mucous membr. moist/pink Neck Exam: Negative: JVD Chest Exam: Positive: Clear to auscultation, Normal air movement Heart Exam: Positive: Rate Normal, Normal S1, Normal S2 Abdomen Exam: Positive: Soft, Negative: Tenderness Extremity Exam: Positive: Tenderness (right leg 2/2 chronic venous stasis ulcer. Wound dressing noted), Swelling (1+ pitting edema) Skin Exam: Positive: Other skin issue (chronic venous stasis ulcers on right ) Neuro Exam: Positive: Other (right residual paresis) Assessment /Plan Plan/VTE VTE Prophylaxis Ordered?: Yes Plan Upper GI bleed s/p 3 Units of PRBC's and 4 Units of FFP (Patient was on Coumadin) ordered on this admission EGD on 02/28 found to have 2 non bleeding gastric ulcers. The patient's H&H has been stable since transfusion, discontinuation of Coumadin Continue with protonix We will continue to hold ASA and coumadin Diet advanced to 2gm, low sodium diet We will cont to monitor the patient's progress Acute Blood Loss Anemia 2/2 Above, resolved s/p 3 units of PRBC . HH stable therafter Also received 4 units of FFP (previously on Coumadin) Acute renal failure Likely 2/2 acute GI Bleed, with severe anemia and resultant decrease in IABP The patient was also taking an ACEI and Lasix concomitantly Serum Cr improving Cont to hold Nephrotoxins Gentle IVF Hydration ordered We will f/u with BMP Chronic atrial fibrillation Rate controlled with metoprolol Coumadin on hold 2/2 above---I did discuss the patient's increased risk of CVA, PE/DVT with the patient and her daughter Jessica Harris given the holding of anticoagulation due to her recent GI bleed. All questions were answered to their satisfaction, and they have verbalized understanding of the implications of risks, benefits, and alternative therapies of withholding anticoagulation therapy. Ischemic ulcer of lower extremity s/p Right femoral to below-knee palpatory bypass graft in August [address] Parks of Vascular Surgery Hyperlipidemia Continue with statin Hypertension, stable Continue regimen as ordered Hx of CVA with Residual Right Sided hemiparesis Continue statin ASA on hold 2/2 GI Bleeding PT on board for functional optimization Hx of Carotid arterial disease status post left carotid endarterectomy. PVD (peripheral vascular disease) status post femoropopliteal bypass on the left and distal bypass on the right Nodule of kidney Right irregularly enhancing nodule suspicious for malignancy Scheduled for a partial nephrectomy as an outpatient Lung nodule 6 mm nodule on the left lower lobe stable since 2012. Venous stasis ulcer on the right lower extremity Wound Care ordered Restless leg syndrome Continue ropinirole DVT Prophylaxis AC contraindicated 2/2 GI Bleeding, TEDs/SCDs contraindicated 2/2 PVD Encourage OOB, Ambulation with PT Poor long-term prognosis Disposition-pending clinical improvement, physical therapy on board for functional optimization. VS, I&O, 24H, [facility] Vital Signs/I&O Vital Signs Date Time Temp Pulse Resp B/P (MAP) Pulse Ox O2 Delivery O2 Flow Rate FiO2 03/02/17 14:01 95 Room Air 03/02/17 14:00 98.6 98 14 134/63 (86) 03/02/17 06:00 2.0 I&O- Last 24 Hours up to 6 AM 03/03/17 06:00 Intake Total 600 ml Balance 600 ml Laboratory Data 24H LABS Laboratory Tests 2 03/02/17 06:46: Nucleated Red Blood Cells % (auto) 0.3H, Prothrombin Time 19.6H, Prothromb Time International Ratio 1.61, Anion Gap 5L, Glomerular Filtration Rate 39.5L, Blood Urea Nitrogen 47H, Creatinine 1.42H, Sodium Level 146H, Potassium Level 4.7, Chloride Level 112H, Carbon Dioxide Level 29, Calcium Level 8.2L CBC/BMP Laboratory Tests 03/02/17 06:46 Red Blood Count 3.12 L, Mean Corpuscular Volume 85.6, Mean Corpuscular Hemoglobin 27.6, Mean Corpuscular Hemoglobin Concent 32.2, Red Cell Distribution Width 18.6 H, Calcium Level 8.2 L JEANNE SINCLAIR MD Mar 02, 2017 16:16
[2017-03-02] MEDS: rOPINIRole 0.25 MG TAB(REQUIP) PO SCH (21:20)
[2017-03-02] MEDS: SERTRALINE 100 MG TAB PO SCH (21:20)
[2017-03-02] MEDS: ROSUVASTATIN 10 MG TAB (CRESTOR) PO SCH (21:20)
[2017-03-02 22:00] VITALS: BP 139/79
[2017-03-03] MEDS: SLF 3 ML SYR IV SCH ×3 (05:58→21:41)
[2017-03-03] MEDS: MORPHINE 2 MG/ML 1ML SYRINGE IV PRN ×6 (05:58→21:42)
[2017-03-03 06:00] VITALS: BP 121/74
[2017-03-03 06:49] LABS: MEAN CORPUSCULAR HGB CONC 31.4 g/dl (32.0-36.5); MEAN CORPUSCULAR VOLUME 86.2 fl (80.0-96.0); PLATELET COUNT, AUTOMATED 261 10^3/uL (150-450); WHITE BLOOD COUNT 8.3 10^3/uL (4.0-10.0)
[2017-03-03 06:58] LABS: INR 1.36
[2017-03-03 07:18] LABS: CALCIUM LEVEL 8.1 MG/DL (8.8-10.2); CREATININE FOR GFR 1.24 MG/DL (0.55-1.02); GLOMERULAR FILTRATION RATE 46.2 (>45); POTASSIUM SERUM 4.5 MEQ/L (3.5-5.1)
[2017-03-03] MEDS: PANTOPRAZOLE 40MG INJ (PROTONIX) (C9113) IV SCH ×2 (09:58→21:41)
[2017-03-03] MEDS: BACLOFEN 10 MG TAB PO SCH ×3 (09:59→21:41)
[2017-03-03] MEDS: METOPROLOL TART 25 MG TABLET PO SCH ×2 (09:59→21:41)
[2017-03-03 14:00] VITALS: BP 125/70
--- NOTE | 2017-03-03 14:13 | IPNPDOC ---
Subjective Date Seen The patient was seen on 03/03/17. Subjective Chief Complaint/HPI The patient is a 67-year-old female admitted with a reason for visit of Acute Blood Loss Anemia, Ugi Bleed. Events since last encounter Patient seen and examined at the bedside. Denies any acute complaints at this time. Objective Physical Examination General Exam: Positive: Alert, Cooperative, No Acute Distress Eye Exam: Negative: Sclera icteric ENT Exam: Positive: Atraumatic, Mucous membr. moist/pink Neck Exam: Negative: JVD Chest Exam: Positive: Clear to auscultation, Normal air movement Heart Exam: Positive: Rate Normal, Normal S1, Normal S2 Abdomen Exam: Positive: Soft, Negative: Tenderness Extremity Exam: Positive: Tenderness (right leg 2/2 chronic venous stasis ulcer. Wound dressing noted), Swelling (1+ pitting edema) Skin Exam: Positive: Other skin issue (chronic venous stasis ulcers on right ) Neuro Exam: Positive: Other (right residual paresis) Assessment /Plan Plan/VTE VTE Prophylaxis Ordered?: Yes Plan Upper GI bleed s/p 3 Units of PRBC's and 4 Units of FFP (Patient was on Coumadin) ordered on this admission EGD on 02/28 found to have 2 non bleeding gastric ulcers. The patient's H&H has been stable since transfusion, discontinuation of Coumadin Continue with protonix We will continue to hold ASA and coumadin Diet advanced to 2gm, low sodium diet We will cont to monitor the patient's progress Acute Blood Loss Anemia 2/2 Above, resolved s/p 3 units of PRBC . HH stable therafter Also received 4 units of FFP (previously on Coumadin) Acute renal failure Likely 2/2 acute GI Bleed, with severe anemia and resultant decrease in IABP The patient was also taking an ACEI and Lasix concomitantly Serum Cr improving Cont to hold Nephrotoxins Gentle IVF Hydration ordered We will f/u with BMP Chronic atrial fibrillation Rate controlled with metoprolol Coumadin on hold 2/2 above---I did discuss the patient's increased risk of CVA, PE/DVT with the patient and her daughter Jessica Harris given the holding of anticoagulation due to her recent GI bleed. All questions were answered to their satisfaction, and they have verbalized understanding of the implications of risks, benefits, and alternative therapies of withholding anticoagulation therapy. Ischemic ulcer of lower extremity s/p Right femoral to below-knee palpatory bypass graft in August [address] Parks of Vascular Surgery Hyperlipidemia Continue with statin Hypertension, stable Continue regimen as ordered Hx of CVA with Residual Right Sided hemiparesis Continue statin ASA on hold 2/2 GI Bleeding PT on board for functional optimization Hx of Carotid arterial disease status post left carotid endarterectomy. PVD (peripheral vascular disease) status post femoropopliteal bypass on the left and distal bypass on the right Nodule of kidney Right irregularly enhancing nodule suspicious for malignancy Scheduled for a partial nephrectomy as an outpatient Lung nodule 6 mm nodule on the left lower lobe stable since 2012. Venous stasis ulcer on the right lower extremity Wound Care ordered Restless leg syndrome Continue ropinirole DVT Prophylaxis AC contraindicated 2/2 GI Bleeding, TEDs/SCDs contraindicated 2/2 PVD Encourage OOB, Ambulation with PT Poor long-term prognosis Disposition-pending clinical improvement, physical therapy on board for functional optimization. VS, I&O, 24H, [facility] Vital Signs/I&O Vital Signs Date Time Temp Pulse Resp B/P (MAP) Pulse Ox O2 Delivery O2 Flow Rate FiO2 03/03/17 13:36 17 03/03/17 09:59 100 133/80 03/03/17 06:00 98.6 93 Room Air 03/02/17 06:00 2.0 I&O- Last 24 Hours up to 6 AM 03/04/17 06:00 Intake Total 240 ml Output Total 0 ml Balance 240 ml Laboratory Data 24H LABS Laboratory Tests 2 03/03/17 06:31: Nucleated Red Blood Cells % (auto) 0.2H, Prothrombin Time 17.1H, Prothromb Time International Ratio 1.36, Anion Gap 8, Glomerular Filtration Rate 46.2, Blood Urea Nitrogen 32H, Creatinine 1.24H, Sodium Level 145, Potassium Level 4.5, Chloride Level 112H, Carbon Dioxide Level 25, Calcium Level 8.1L CBC/BMP Laboratory Tests 03/03/17 06:31 Red Blood Count 3.18 L, Mean Corpuscular Volume 86.2, Mean Corpuscular Hemoglobin 27.0, Mean Corpuscular Hemoglobin Concent 31.4 L, Red Cell Distribution Width 19.0 H, Calcium Level 8.1 L JEANNE SINCLAIR MD Mar 03, 2017 14:13
[2017-03-03] MEDS: ROSUVASTATIN 10 MG TAB (CRESTOR) PO SCH (21:40)
[2017-03-03] MEDS: rOPINIRole 0.25 MG TAB(REQUIP) PO SCH (21:41)
[2017-03-03] MEDS: SERTRALINE 100 MG TAB PO SCH (21:41)
[2017-03-03 22:00] VITALS: BP 174/63
[2017-03-04] MEDS: SLF 3 ML SYR IV SCH ×3 (05:31→21:23)
[2017-03-04 06:00] VITALS: BP 142/66
[2017-03-04 07:10] LABS: MEAN CORPUSCULAR HEMOGLOBIN 27.2 pg (27.0-33.0); MEAN CORPUSCULAR HGB CONC 31.2 g/dl (32.0-36.5); PLATELET COUNT, AUTOMATED 280 10^3/uL (150-450); RED CELL DISTRIBUTION WIDTH 18.4 % (11.5-14.5); WHITE BLOOD COUNT 7.1 10^3/uL (4.0-10.0)
[2017-03-04 07:23] LABS: INR 1.19
[2017-03-04 07:26] LABS: CALCIUM LEVEL 8.2 MG/DL (8.8-10.2); CREATININE FOR GFR 1.11 MG/DL (0.55-1.02); GLOMERULAR FILTRATION RATE 52.5 (>45); POTASSIUM SERUM 4.4 MEQ/L (3.5-5.1)
[2017-03-04] MEDS: PANTOPRAZOLE 40MG INJ (PROTONIX) (C9113) IV SCH ×2 (09:26→21:22)
[2017-03-04] MEDS: BACLOFEN 10 MG TAB PO SCH ×3 (09:26→21:22)
[2017-03-04] MEDS: METOPROLOL TART 25 MG TABLET PO SCH ×2 (09:26→21:22)
[2017-03-04] MEDS: ASPIRIN 325 MG TAB PO SCH (09:26)
[2017-03-04] MEDS: MORPHINE 2 MG/ML 1ML SYRINGE IV PRN ×2 (10:53→17:11)
--- NOTE | 2017-03-04 12:59 | IPNPDOC ---
Subjective Date Seen The patient was seen on 03/04/17. Subjective Chief Complaint/HPI The patient is a 67-year-old female admitted with a reason for visit of Acute Blood Loss Anemia, Ugi Bleed. Events since last encounter Patient seen and examined at the bedside. States that her right lower extremity pain is better controlled today. Is hoping that she can work with physical therapy today to optimize her functional status. Objective Physical Examination General Exam: Positive: Alert, Cooperative, No Acute Distress Eye Exam: Negative: Sclera icteric ENT Exam: Positive: Atraumatic, Mucous membr. moist/pink Neck Exam: Negative: JVD Chest Exam: Positive: Clear to auscultation, Normal air movement Heart Exam: Positive: Rate Normal, Normal S1, Normal S2 Abdomen Exam: Positive: Soft, Negative: Tenderness Extremity Exam: Positive: Tenderness (right leg 2/2 chronic venous stasis ulcer. Wound dressing noted), Swelling (1+ pitting edema) Skin Exam: Positive: Other skin issue (chronic venous stasis ulcers on right ) Neuro Exam: Positive: Other (right residual paresis) Assessment /Plan Plan/VTE VTE Prophylaxis Ordered?: Yes Plan Upper GI bleed s/p 3 Units of PRBC's and 4 Units of FFP (Patient was on Coumadin) ordered on this admission EGD on 02/28 found to have 2 non bleeding gastric ulcers. The patient's H&H has been stable since transfusion, discontinuation of Coumadin Continue with protonix We will continue to hold coumadin Diet advanced to 2gm, low sodium diet We will cont to monitor the patient's progress Acute Blood Loss Anemia 2/2 Above, resolved s/p 3 units of PRBC . HH stable therafter Also received 4 units of FFP (previously on Coumadin) Acute renal failure Likely 2/2 acute GI Bleed, with severe anemia and resultant decrease in IABP The patient was also taking an ACEI and Lasix concomitantly Serum Cr improving Cont to hold Nephrotoxins Gentle IVF Hydration ordered We will f/u with BMP Chronic atrial fibrillation Rate controlled with metoprolol Coumadin on hold 2/2 above---I did discuss the patient's increased risk of CVA, PE/DVT with the patient and her daughter Jessica Harris given the holding of anticoagulation due to her recent GI bleed. All questions were answered to their satisfaction, and they have verbalized understanding of the implications of risks, benefits, and alternative therapies of withholding anticoagulation therapy. Ischemic ulcer of lower extremity s/p Right femoral to below-knee palpatory bypass graft in August [address] Parks of Vascular Surgery Hyperlipidemia Continue with statin Hypertension, stable Continue regimen as ordered Hx of CVA with Residual Right Sided hemiparesis Continue statin, ASA PT on board for functional optimization Hx of Carotid arterial disease status post left carotid endarterectomy. PVD (peripheral vascular disease) status post femoropopliteal bypass on the left and distal bypass on the right Nodule of kidney Right irregularly enhancing nodule suspicious for malignancy Scheduled for a partial nephrectomy as an outpatient Lung nodule 6 mm nodule on the left lower lobe stable since 2012. Venous stasis ulcer on the right lower extremity Wound Care ordered Restless leg syndrome Continue ropinirole DVT Prophylaxis AC contraindicated 2/2 GI Bleeding, TEDs/SCDs contraindicated 2/2 PVD Encourage OOB, Ambulation with PT Poor long-term prognosis Disposition-pending clinical improvement, physical therapy on board for functional optimization. VS, I&O, 24H, [facility] Vital Signs/I&O Vital Signs Date Time Temp Pulse Resp B/P (MAP) Pulse Ox O2 Delivery O2 Flow Rate FiO2 03/04/17 11:03 18 03/04/17 09:26 99 142/66 03/04/17 06:00 96.8 93 Room Air 03/02/17 06:00 2.0 Laboratory Data 24H LABS Laboratory Tests 2 03/04/17 06:51: Nucleated Red Blood Cells % (auto) 0.0, Prothrombin Time 15.3H, Prothromb Time International Ratio 1.19, Anion Gap 7L, Glomerular Filtration Rate 52.5, Blood Urea Nitrogen 21H, Creatinine 1.11H, Sodium Level 143, Potassium Level 4.4, Chloride Level 110H, Carbon Dioxide Level 26, Calcium Level 8.2L CBC/BMP Laboratory Tests 03/04/17 06:51 Red Blood Count 3.46 L, Mean Corpuscular Volume 87.0, Mean Corpuscular Hemoglobin 27.2, Mean Corpuscular Hemoglobin Concent 31.2 L, Red Cell Distribution Width 18.4 H, Calcium Level 8.2 L JEANNE SINCLAIR MD Mar 04, 2017 12:59
[2017-03-04 14:00] VITALS: BP 160/68
[2017-03-04] MEDS: NYSTATIN 100,000 UNITS/GM TOPICAL PWD 15 GM TOP PRN (17:11)
[2017-03-04] MEDS: rOPINIRole 0.25 MG TAB(REQUIP) PO SCH (21:22)
[2017-03-04] MEDS: ROSUVASTATIN 10 MG TAB (CRESTOR) PO SCH (21:22)
[2017-03-04] MEDS: SERTRALINE 100 MG TAB PO SCH (21:22)
[2017-03-04 22:00] VITALS: BP 160/79
[2017-03-05] MEDS: MORPHINE 2 MG/ML 1ML SYRINGE IV PRN ×2 (00:11→09:49)
[2017-03-05] MEDS: SLF 3 ML SYR IV SCH ×3 (05:50→22:12)
[2017-03-05 06:00] VITALS: BP 122/70
[2017-03-05 07:18] LABS: MEAN CORPUSCULAR HEMOGLOBIN 26.9 pg (27.0-33.0); MEAN CORPUSCULAR HGB CONC 32.1 g/dl (32.0-36.5); MEAN CORPUSCULAR VOLUME 83.9 fl (80.0-96.0); PLATELET COUNT, AUTOMATED 299 10^3/uL (150-450); RED CELL DISTRIBUTION WIDTH 17.6 % (11.5-14.5); WHITE BLOOD COUNT 6.4 10^3/uL (4.0-10.0)
[2017-03-05 07:29] LABS: INR 1.2
[2017-03-05 07:35] LABS: ANION GAP 8 MEQ/L (8-16); BLOOD UREA NITROGEN 19 MG/DL (7-18); CALCIUM LEVEL 8.2 MG/DL (8.8-10.2); CARBON DIOXIDE LEVEL 24 MEQ/L (21-32); CHLORIDE LEVEL 111 MEQ/L (98-107); CREATININE FOR GFR 0.97 MG/DL (0.55-1.02); GLOMERULAR FILTRATION RATE > 60.0 (>45); GLUCOSE, FASTING 142 MG/DL (80-110); POTASSIUM SERUM 4.1 MEQ/L (3.5-5.1); SODIUM LEVEL 143 MEQ/L (136-145)
[2017-03-05] MEDS ORDERED: BISACODYL 10 MG SUPP PR PRN (07:45)
[2017-03-05] MEDS: ASPIRIN 325 MG TAB PO SCH (09:49)
[2017-03-05] MEDS: PANTOPRAZOLE 40MG INJ (PROTONIX) (C9113) IV SCH ×2 (09:49→22:10)
[2017-03-05] MEDS: METOPROLOL TART 25 MG TABLET PO SCH ×2 (09:50→22:11)
[2017-03-05] MEDS: BACLOFEN 10 MG TAB PO SCH ×3 (09:50→22:11)
[2017-03-05] MEDS: SENNA 8.6 MG TAB (SENOKOT) PO SCH ×2 (09:50→22:11)
--- NOTE | 2017-03-05 13:09 | IPNPDOC ---
Subjective Date Seen The patient was seen on 03/05/17. Subjective Chief Complaint/HPI The patient is a 67-year-old female admitted with a reason for visit of Acute Blood Loss Anemia, Ugi Bleed. Events since last encounter Patient seen and examined at the bedside. States that she is feeling better, and is working with physical therapy daily. Notes that she has not had a bowel movement in a few days, but notes that she has been passing flatus and denies any abdominal pain. Objective Physical Examination General Exam: Positive: Alert, Cooperative, No Acute Distress Eye Exam: Negative: Sclera icteric ENT Exam: Positive: Atraumatic, Mucous membr. moist/pink Neck Exam: Negative: JVD Chest Exam: Positive: Clear to auscultation, Normal air movement Heart Exam: Positive: Rate Normal, Normal S1, Normal S2 Abdomen Exam: Positive: Soft, Negative: Tenderness Extremity Exam: Positive: Tenderness (right leg 2/2 chronic venous stasis ulcer. Wound dressing noted), Swelling (1+ pitting edema) Skin Exam: Positive: Other skin issue (chronic venous stasis ulcers on right ) Neuro Exam: Positive: Other (right residual paresis) Assessment /Plan Plan/VTE VTE Prophylaxis Ordered?: Yes Plan Upper GI bleed s/p 3 Units of PRBC's and 4 Units of FFP (Patient was on Coumadin) ordered on this admission EGD on 02/28 found to have 2 non bleeding gastric ulcers. The patient's H&H has been stable since transfusion, discontinuation of Coumadin Continue with protonix We will continue to hold coumadin Diet advanced to 2gm, low sodium diet We will cont to monitor the patient's progress Acute Blood Loss Anemia 2/2 Above, resolved s/p 3 units of PRBC . HH stable therafter Also received 4 units of FFP (previously on Coumadin) Acute renal failure, resolved Likely 2/2 acute GI Bleed, with severe anemia and resultant decrease in IABP The patient was also taking an ACEI and Lasix concomitantly Serum Cr back to baseline s/p IVF Hydration Chronic atrial fibrillation Rate controlled with metoprolol Coumadin on hold 2/2 above---I did discuss the patient's increased risk of CVA, PE/DVT with the patient and her daughter Jessica Harris given the holding of anticoagulation due to her recent GI bleed. All questions were answered to their satisfaction, and they have verbalized understanding of the implications of risks, benefits, and alternative therapies of withholding anticoagulation therapy. Ischemic ulcer of lower extremity s/p Right femoral to below-knee palpatory bypass graft in August [address] Parks of Vascular Surgery Hyperlipidemia Continue with statin Hypertension, stable Continue regimen as ordered Hx of CVA with Residual Right Sided hemiparesis Continue statin, ASA PT on board for functional optimization Hx of Carotid arterial disease status post left carotid endarterectomy. PVD (peripheral vascular disease) status post femoropopliteal bypass on the left and distal bypass on the right Nodule of kidney Right irregularly enhancing nodule suspicious for malignancy Scheduled for a partial nephrectomy as an outpatient Lung nodule 6 mm nodule on the left lower lobe stable since 2012. Venous stasis ulcer on the right lower extremity Wound Care ordered Restless leg syndrome Continue ropinirole Constipation Likely 2/2 narcotic meds, decreased activity Bowel regimen ordered DVT Prophylaxis AC contraindicated 2/2 GI Bleeding, TEDs/SCDs contraindicated 2/2 PVD Encourage OOB, Ambulation with PT Poor long-term prognosis Disposition-pending clinical improvement, physical therapy on board for functional optimization. VS, I&O, 24H, Fishbone Vital Signs/I&O Vital Signs Date Time Temp Pulse Resp B/P (MAP) Pulse Ox O2 Delivery O2 Flow Rate FiO2 03/05/17 10:30 Room Air 03/05/17 09:59 20 03/05/17 09:50 52 122/70 03/05/17 06:00 97.7 91 03/02/17 06:00 2.0 Laboratory Data 24H LABS Laboratory Tests 2 03/05/17 06:54: Nucleated Red Blood Cells % (auto) 0.0, Prothrombin Time 15.4H, Prothromb Time International Ratio 1.20, Anion Gap 8, Glomerular Filtration Rate > 60.0, Blood Urea Nitrogen 19H, Creatinine 0.97, Sodium Level 143, Potassium Level 4.1, Chloride Level 111H, Carbon Dioxide Level 24, Calcium Level 8.2L CBC/BMP Laboratory Tests 03/05/17 06:54 Red Blood Count 3.42 L, Mean Corpuscular Volume 83.9, Mean Corpuscular Hemoglobin 26.9 L, Mean Corpuscular Hemoglobin Concent 32.1, Red Cell Distribution Width 17.6 H, Calcium Level 8.2 L JEANNE SINCLAIR MD Mar 05, 2017 13:09
[2017-03-05] MEDS ORDERED: PERCOCET 5MG/325MG TAB PO PRN (13:15)
[2017-03-05 14:00] VITALS: BP 158/73
[2017-03-05 22:00] VITALS: BP 166/61
[2017-03-05] MEDS: ROSUVASTATIN 10 MG TAB (CRESTOR) PO SCH (22:10)
[2017-03-05] MEDS: SERTRALINE 100 MG TAB PO SCH (22:10)
[2017-03-05] MEDS: rOPINIRole 0.25 MG TAB(REQUIP) PO SCH (22:11)
[2017-03-06 06:00] VITALS: BP 135/78
[2017-03-06] MEDS: SLF 3 ML SYR IV SCH (06:11)
[2017-03-06 06:27] LABS: MEAN CORPUSCULAR HEMOGLOBIN 26.5 pg (27.0-33.0); MEAN CORPUSCULAR HGB CONC 31.6 g/dl (32.0-36.5); MEAN CORPUSCULAR VOLUME 83.8 fl (80.0-96.0); PLATELET COUNT, AUTOMATED 300 10^3/uL (150-450); RED CELL DISTRIBUTION WIDTH 17.6 % (11.5-14.5); WHITE BLOOD COUNT 7.1 10^3/uL (4.0-10.0)
[2017-03-06 06:36] LABS: INR 1.1
[2017-03-06 06:46] LABS: ANION GAP 7 MEQ/L (8-16); BLOOD UREA NITROGEN 18 MG/DL (7-18); CALCIUM LEVEL 8.3 MG/DL (8.8-10.2); CARBON DIOXIDE LEVEL 26 MEQ/L (21-32); CHLORIDE LEVEL 109 MEQ/L (98-107); CREATININE FOR GFR 0.91 MG/DL (0.55-1.02); GLOMERULAR FILTRATION RATE > 60.0 (>45); GLUCOSE, FASTING 143 MG/DL (80-110); SODIUM LEVEL 142 MEQ/L (136-145)
[2017-03-06] MEDS ORDERED: PANT40TA2 PO (07:27)
[2017-03-06] MEDS: SENNA 8.6 MG TAB (SENOKOT) PO SCH (09:00)
[2017-03-06] MEDS: ASPIRIN 325 MG TAB PO SCH (09:50)
[2017-03-06] MEDS: BACLOFEN 10 MG TAB PO SCH (09:50)
[2017-03-06] MEDS: PANTOPRAZOLE 40MG INJ (PROTONIX) (C9113) IV SCH (09:50)
[2017-03-06 09:51] VITALS: BP 135/78
[2017-03-06] MEDS: METOPROLOL TART 25 MG TABLET PO SCH (09:51)
--- NOTE | 2017-03-06 10:00 | DSES ---
DATE OF ADMISSION: 02/28/2017 DATE OF DISCHARGE: PRIMARY CARE PROVIDER: NICHOLE Shipley ATTENDING PHYSICIAN: Dr. Charles Louis PRINCIPAL DIAGNOSES: Upper gastrointestinal bleed with acute blood loss anemia, probably secondary to gastric ulcers. SECONDARY DIAGNOSES: 1. Chronic atrial fibrillation. 2. Excess anticoagulation. 3. History of stroke with right hemiparesis and aphasia. 4. Hyperlipidemia. 5. Ischemic ulcer of right lower extremity. 6. Carotid artery disease. 7. Right renal lesion, suspicious for malignancy. 8. Left lower lobe lung nodule, stable from 2016. 9. Stasis ulcer of right lower extremity. 10. Restless leg syndrome. 11. Chronic constipation. HISTORY: Sallie Harris is a 67-year-old who sees primary care through [facility]. She has a history of stroke and on warfarin for secondary prevention of stroke. She has had a previous stroke, this left her with right hemiparesis and aphasia. She presented with melena, hematochezia, dizziness, lightheadedness and was found to be severely anemic with a hemoglobin of 6.5, heme positive stool, and an elevated INR. Admitted for further evaluation. Details of the history and physical as per admission. HOSPITAL COURSE: The patient was admitted to a monitored bed. She underwent upper endoscopy by Dr. Sanchez on 02/28/2017. After stabilization with transfusion of 3 units of packed red blood cells, as well as 4 units of fresh frozen plasma, upper endoscopy on 03/01/2017. She had two cratered enterogastric ulcers, 6 and 10 mm in size with pigmented material. Both ulcer bases were covered with a whitish exudate. There was a small spot of brown pigmented material at the margin of the larger ulcer. No visible vessels. No red spots. They were deemed low risk for rebleeding. Biopsies were performed and are pending. She had no recurrence of bleeding after warfarin was discontinued. She was moved to the floor and laboratories were followed on a daily basis. On the day of discharge, she demonstrates stable hemoglobin. She has stable vital signs. Blood pressure is 135/70, pulse 62, respiratory rate 18, 93% oxygen saturation. PHYSICAL EXAMINATION: She is resting comfortably, no distress. She has aphasia but does answer questions. Has trouble with word finding. She has right hemiparesis. LUNGS: Clear. HEART: Regular rate and rhythm. ABDOMEN: Soft, nontender. No masses. EXTREMITIES: Right lower extremity has a wrap on it from Dr. Ambrosio from the wound center. LABORATORY DATA: Admission hemoglobin was 6.6, after transfusion it went up to 9.4 and has remained stable over the last 3 days. INR on admission was 3.46, after the fresh frozen plasma it fell steadily, it is 1.1 today. She had acute renal failure on admission (She had been on Bactrim for venous ulcer. It is hard to tell if her acute renal failure was secondary to the Bactrim or from the GI bleed. In any case, her renal function recovered and improved on a steady basis and creatinine is 0.9 on discharge). DISPOSITION: The patient is discharged home in improved and stable condition. Her discharge medications are: - ascorbic acid 500 mg daily - aspirin 325 mg daily (aspirin was maintained during this hospitalization without evidence of rebleeding, warfarin was held but aspirin but was continued) - Baclofen 10 mg three times a day - calcium with vitamin D, vitamin D 1000 units daily - metoprolol tartrate 25 mg twice a day - Requip 0.25 mg at bedtime - Crestor 20 mg at bedtime - sertraline 100 mg at night Her furosemide and lisinopril were held on admission due to the acute renal failure. Her blood pressure remained well controlled. She showed no signs of volume overload off her diuretic. However, she does have venous stasis and if her edema reaccumulates the furosemide will need to be restarted. The warfarin was held in the face of the GI bleed with evidence of recent bleed from the ulcers on upper endoscopy. She is high risk for recurrent stroke off the warfarin. This has been reviewed with the patient and her daughter. All attempts should be made to restart the warfarin after a suitable interval, as she is high risk for recurrent stroke; evidence now strongly supports reinitiating anticoagulant therapy on patients who have had GI bleeds, as risk of stroke and increased mortality from stroke outweighs the risk of mortality from the potential GI bleed. 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 One potential strategy could be to have the patient undergo repeat upper endoscopy to confirm healing of the ulcers and then reinitiate anticoagulant therapy. I do see that her pathology report had returned from the stomach ulcer biopsy and it showed acute on chronic gastritis. No Helicobacter. No evidence of malignancy. Home health nursing referral has been made. I discussed with the patient the need for followup next week with [facility]. There are several issues that will need to be addressed as an outpatient, including attention to the blood pressure on the reduced number of antihypertensives, attention to her volume status with discontinuation of her furosemide and arrangement of repeat upper endoscopy with the goal of reinitiating anticoagulant therapy as soon as possible.
== END 2017-03-06 11:50 | disposition home health service (06) | DRG 811 ==
LOC: M ED 14:00 → EDBD 14:00 → M ED INP 17:02 → M ICU 17:55 → M MS5PR 03-01 17:50
PROVIDERS: ADMIT Hospitalist; ATTEND Internal Medicine Nephrology
PROC: 30233N1 Transfusion of Nonautologous Red Blood Cells into Peripheral Vein, Percutaneous Approach (ICD-10-PCS; 2017-02-28)
PROC: 30233K1 Transfusion of Nonautologous Frozen Plasma into Peripheral Vein, Percutaneous Approach (ICD-10-PCS; 2017-02-28)
PROC: 0DB78ZX Excision of Stomach, Pylorus, Via Natural or Artificial Opening Endoscopic, Diagnostic (ICD-10-PCS; principal; 2017-03-01)
DX: D62 Acute posthemorrhagic anemia (principal); K25.4 Chronic or unspecified gastric ulcer with hemorrhage; N17.9 Acute kidney failure, unspecified; L97.819 Non-pressure chronic ulcer of other part of right lower leg with unspecified severity; I69.351 Hemiplegia and hemiparesis following cerebral infarction affecting right dominant side; I48.2 Chronic atrial fibrillation; I83.018 Varicose veins of right lower extremity with ulcer other part of lower leg; E78.5 Hyperlipidemia, unspecified; E87.5 Hyperkalemia; I73.9 Peripheral vascular disease, unspecified; I10 Essential (primary) hypertension; F32.9 Major depressive disorder, single episode, unspecified; G25.81 Restless legs syndrome; I69.320 Aphasia following cerebral infarction; Z87.891 Personal history of nicotine dependence; Z79.01 Long term (current) use of anticoagulants; Z79.899 Other long term (current) drug therapy; Z88.0 Allergy status to penicillin

== ENCOUNTER 2017-03-16 14:31 | Emergency (ER) | payer MEDICARE, MEDICAID ==
[2017-03-16 15:51] LABS: MEAN CORPUSCULAR HEMOGLOBIN 26.3 pg (27.0-33.0); MEAN CORPUSCULAR HGB CONC 31.6 g/dl (32.0-36.5); MEAN CORPUSCULAR VOLUME 83.2 fl (80.0-96.0); PLATELET COUNT, AUTOMATED 399 10^3/uL (150-450); RED CELL DISTRIBUTION WIDTH 16.6 % (11.5-14.5); WHITE BLOOD COUNT 9.9 10^3/uL (4.0-10.0)
[2017-03-16 16:08] LABS: ALBUMIN 3.3 GM/DL (3.2-5.2); ALBUMIN/GLOBULIN RATIO 0.85 (1.00-1.93); ALKALINE PHOSPHATASE 105 U/L (45-117); ALT/SGPT 18 U/L (12-78); ANION GAP 7 MEQ/L (8-16); AST/SGOT 15 U/L (7-37); BILIRUBIN,DIRECT < 0.1 MG/DL (0.0-0.2); BILIRUBIN,TOTAL 0.2 MG/DL (0.2-1.0); BLOOD UREA NITROGEN 36 MG/DL (7-18); CALCIUM LEVEL 8.6 MG/DL (8.8-10.2); CARBON DIOXIDE LEVEL 26 MEQ/L (21-32); CHLORIDE LEVEL 106 MEQ/L (98-107); CREATININE FOR GFR 1.53 MG/DL (0.55-1.02); GLOMERULAR FILTRATION RATE 36.3 (>45); GLUCOSE, FASTING 137 MG/DL (80-110); POTASSIUM SERUM 4.8 MEQ/L (3.5-5.1); SODIUM LEVEL 139 MEQ/L (136-145); TOTAL PROTEIN 7.2 GM/DL (6.4-8.2)
[2017-03-16] MEDS: MORPHINE 4 MG/ML 1ML SYRINGE IV ×2 (16:48)
[2017-03-16] MEDS: ONDANSETRON 4MG/2ML VIAL (J2405) IV ×2 (16:49)
== END 2017-03-16 17:45 | disposition short-term general hospital (02) ==
LOC: M ED 14:31
DX: I74.3 Embolism and thrombosis of arteries of the lower extremities (principal); I10 Essential (primary) hypertension; I25.10 Atherosclerotic heart disease of native coronary artery without angina pectoris; E78.5 Hyperlipidemia, unspecified; I48.91 Unspecified atrial fibrillation; Z86.718 Personal history of other venous thrombosis and embolism; Z86.73 Personal history of transient ischemic attack (TIA), and cerebral infarction without residual deficits; Z79.899 Other long term (current) drug therapy; Z79.82 Long term (current) use of aspirin; Z79.01 Long term (current) use of anticoagulants; Z88.0 Allergy status to penicillin
CPT/HCPCS: J2405

== ENCOUNTER → 2018-09-21 | Outpatient (REF) ==
[~2018-09-21] MED LIST changes: +ALEV220C2 PO; +ASPI-1 PO; -ASPI325T PO; +CRES10TA PO; -CRES10TA32 PO; -CRES20TA PO; +CRES20TA2 PO; +DIOV160T6 PO; +ERYT1OIN26 OD; +ERYT1OIN26 OU; -ERYT5OPO OD; +FURO40TA2; +HYDR1CRE TOP; +LEVO500T3; +LISI-538; +METO1TAB63 PO; +METO1TAB87 PO; -METO25TAB PO; +PANT40TA3 PO; -RAMI10CA PO; +RAMI1CAP26 PO; -ROPI0.25 PO; +ROPI0.253 PO; +SERT-141; -SERT50TA; +SMZ/TMP; +SMZ/TMP PO; +WARF-23; +WARF-23 PO
[2018-09-21 09:35] LABS: HEMATOCRIT 38.3 % (36.0-47.0); HEMOGLOBIN 11.8 g/dl (12.0-15.5); MEAN CORPUSCULAR HEMOGLOBIN 26.5 pg (27.0-33.0); MEAN CORPUSCULAR HGB CONC 30.8 g/dl (32.0-36.5); MEAN CORPUSCULAR VOLUME 86.1 fl (80.0-96.0); PLATELET COUNT, AUTOMATED 263 10^3/uL (150-450); RED BLOOD COUNT 4.45 10^6/uL (4.00-5.40); WHITE BLOOD COUNT 6.1 10^3/uL (4.0-10.0)
[2018-09-21 09:53] LABS: CREATININE FOR GFR 1.02 MG/DL (0.55-1.30); GLOMERULAR FILTRATION RATE 57.7 (>45); POTASSIUM SERUM 3.7 MEQ/L (3.5-5.1)
[2018-09-21 10:23] LABS: HEMOGLOBIN A1c 7.7 %
== END ==
PROVIDERS: ATTEND Internal Medicine
DX: I25.10 Atherosclerotic heart disease of native coronary artery without angina pectoris (principal)

== ENCOUNTER → 2018-10-05 | Outpatient (REF) | payer MEDICARE, MEDICAID, BC, OTHER ==
[2018-10-05 09:44] LABS: HEMATOCRIT 38.1 % (36.0-47.0); HEMOGLOBIN 11.7 g/dl (12.0-15.5); MEAN CORPUSCULAR HEMOGLOBIN 26.8 pg (27.0-33.0); MEAN CORPUSCULAR HGB CONC 30.7 g/dl (32.0-36.5); MEAN CORPUSCULAR VOLUME 87.2 fl (80.0-96.0); PLATELET COUNT, AUTOMATED 284 10^3/uL (150-450); RED BLOOD COUNT 4.37 10^6/uL (4.00-5.40); WHITE BLOOD COUNT 6.6 10^3/uL (4.0-10.0)
[2018-10-05 10:10] LABS: CALCIUM LEVEL 8.9 MG/DL (8.8-10.2); CREATININE FOR GFR 1.09 MG/DL (0.55-1.30); GLOMERULAR FILTRATION RATE 53.5 (>45); POTASSIUM SERUM 3.9 MEQ/L (3.5-5.1)
== END ==
PROVIDERS: ATTEND Internal Medicine
DX: I25.10 Atherosclerotic heart disease of native coronary artery without angina pectoris (principal)

== ENCOUNTER → 2018-11-09 | Outpatient (REF) | payer BC, MEDICAID, MEDICARE, OTHER ==
[2018-11-09 08:28] LABS: HEMATOCRIT 38.4 % (36.0-47.0); HEMOGLOBIN 12.1 g/dl (12.0-15.5); MEAN CORPUSCULAR HEMOGLOBIN 27.4 pg (27.0-33.0); MEAN CORPUSCULAR HGB CONC 31.5 g/dl (32.0-36.5); MEAN CORPUSCULAR VOLUME 86.9 fl (80.0-96.0); PLATELET COUNT, AUTOMATED 293 10^3/uL (150-450); RED BLOOD COUNT 4.42 10^6/uL (4.00-5.40); WHITE BLOOD COUNT 7.8 10^3/uL (4.0-10.0)
[2018-11-09 08:49] LABS: BLOOD UREA NITROGEN 21 MG/DL (7-18); CALCIUM LEVEL 8.9 MG/DL (8.8-10.2); CARBON DIOXIDE LEVEL 25 MEQ/L (21-32); CHLORIDE LEVEL 107 MEQ/L (98-107); CREATININE FOR GFR 0.94 MG/DL (0.55-1.30); GLOMERULAR FILTRATION RATE > 60.0 (>45); GLUCOSE, FASTING 152 MG/DL (70-100); POTASSIUM SERUM 3.8 MEQ/L (3.5-5.1); SODIUM LEVEL 143 MEQ/L (136-145)
== END ==
PROVIDERS: ATTEND Internal Medicine
DX: I25.10 Atherosclerotic heart disease of native coronary artery without angina pectoris (principal)

== ENCOUNTER → 2018-12-07 | Outpatient (REF) | payer MEDICARE, MEDICAID, BC, OTHER ==
[2018-12-07 09:34] LABS: HEMATOCRIT 39.3 % (36.0-47.0); HEMOGLOBIN 12.2 g/dl (12.0-15.5); MEAN CORPUSCULAR HEMOGLOBIN 27.7 pg (27.0-33.0); MEAN CORPUSCULAR VOLUME 89.3 fl (80.0-96.0); PLATELET COUNT, AUTOMATED 281 10^3/uL (150-450); WHITE BLOOD COUNT 7.3 10^3/uL (4.0-10.0)
[2018-12-07 10:00] LABS: BLOOD UREA NITROGEN 21 MG/DL (7-18); CALCIUM LEVEL 9.1 MG/DL (8.8-10.2); CARBON DIOXIDE LEVEL 25 MEQ/L (21-32); CHLORIDE LEVEL 105 MEQ/L (98-107); CREATININE FOR GFR 0.96 MG/DL (0.55-1.30); GLOMERULAR FILTRATION RATE > 60.0 (>45); GLUCOSE, FASTING 186 MG/DL (70-100); POTASSIUM SERUM 3.7 MEQ/L (3.5-5.1); SODIUM LEVEL 142 MEQ/L (136-145)
== END ==
PROVIDERS: ATTEND Internal Medicine
DX: I25.10 Atherosclerotic heart disease of native coronary artery without angina pectoris (principal)

== ENCOUNTER → 2019-03-01 | Outpatient (REF) | payer MEDICARE, MEDICAID, BC, OTHER ==
[~2019-03-01] MED LIST changes: -VALA1TAB2 PO; +VALA1TAB64 PO
[2019-03-01 09:53] LABS: BASO # 0.1 10^3/uL (0.0-0.2); BASO % 0.6 % (0.0-1.0); EOS # 0.1 10^3/uL (0.0-0.5); EOS % 1.7 % (0.0-3.0); HEMATOCRIT 41.5 % (36.0-47.0); HEMOGLOBIN 12.4 g/dl (12.0-15.5); LYMPH # 1.7 10^3/uL (1.5-5.0); LYMPH % 21.4 % (24.0-44.0); MEAN CORPUSCULAR HEMOGLOBIN 27.4 pg (27.0-33.0); MEAN CORPUSCULAR HGB CONC 29.9 g/dl (32.0-36.5); MEAN CORPUSCULAR VOLUME 91.8 fl (80.0-96.0); MONO # 0.6 10^3/uL (0.0-0.8); MONO % 7.1 % (0.0-5.0); NEUTROPHILS # 5.6 10^3/uL (1.5-8.5); NEUTROPHILS % 68.8 % (36.0-66.0); PLATELET COUNT, AUTOMATED 313 10^3/uL (150-450); RED BLOOD COUNT 4.52 10^6/uL (4.00-5.40); WHITE BLOOD COUNT 8.1 10^3/uL (4.0-10.0)
[2019-03-01 10:17] LABS: ALBUMIN 3.3 GM/DL (3.2-5.2); CALCIUM LEVEL 8.6 MG/DL (8.8-10.2); CREATININE FOR GFR 1.06 MG/DL (0.55-1.30); MAGNESIUM LEVEL 1.8 MG/DL (1.8-2.4); PHOSPHORUS LEVEL 3.6 MG/DL (2.5-4.9); POTASSIUM SERUM 4.1 MEQ/L (3.5-5.1); URIC ACID 7.5 MG/DL (2.6-6.0)
[2019-03-01 11:35] LABS: PTH INTACT 62.6 PG/ML (18.5-88.0)
[2019-03-01 12:18] LABS: APPEARANCE, URINE CLOUDY (CLEAR); BACTERIA, URINE AUTO 3+ (NEGATIVE); BILIRUBIN, URINE AUTO NEGATIVE (NEGATIVE); BLOOD, URINE BLOOD 2+ (NEGATIVE); COLOR, URINE YELLOW (YELLOW); GLUCOSE, URINE (UA) AUTO NEGATIVE (NEGATIVE); KETONE, URINE AUTO NEGATIVE (NEGATIVE); LEUKOCYTE ESTERASE, URINE AUTO 3+ (NEGATIVE); NITRITE, URINE AUTO NEGATIVE (NEGATIVE); PROTEIN, URINE AUTO 1+ mg/dL (NEGATIVE); RBC, URINE AUTO 37 /HPF (0-3); SPECIFIC GRAVITY URINE AUTO 1.021 (1.002-1.035); SQUAMOUS EPITHELIAL CELL UR AU 3 /HPF (0-6); UROBILINOGEN, URINE AUTO 0.2 mg/dL (0.0-2.0); WBC, URINE AUTO TNTC /HPF (0-3)
== END ==
PROVIDERS: ATTEND Internal Medicine
DX: N18.3 Chronic kidney disease, stage 3 (moderate) (principal)

== ENCOUNTER → 2019-03-08 | Outpatient (REF) | payer MEDICARE, MEDICAID, BC, OTHER ==
[2019-03-08 11:21] LABS: HEMATOCRIT 40.3 % (36.0-47.0); HEMOGLOBIN 12.2 g/dl (12.0-15.5); MEAN CORPUSCULAR HEMOGLOBIN 27.5 pg (27.0-33.0); MEAN CORPUSCULAR HGB CONC 30.3 g/dl (32.0-36.5); PLATELET COUNT, AUTOMATED 308 10^3/uL (150-450); RED BLOOD COUNT 4.43 10^6/uL (4.00-5.40); WHITE BLOOD COUNT 7.3 10^3/uL (4.0-10.0)
[2019-03-08 12:01] LABS: BLOOD UREA NITROGEN 18 MG/DL (7-18); CALCIUM LEVEL 8.4 MG/DL (8.8-10.2); CARBON DIOXIDE LEVEL 27 MEQ/L (21-32); CHLORIDE LEVEL 104 MEQ/L (98-107); CREATININE FOR GFR 0.95 MG/DL (0.55-1.30); GLOMERULAR FILTRATION RATE > 60.0 (>45); GLUCOSE, FASTING 227 MG/DL (70-100); POTASSIUM SERUM 3.9 MEQ/L (3.5-5.1); SODIUM LEVEL 139 MEQ/L (136-145)
== END ==
PROVIDERS: ATTEND Internal Medicine
DX: I25.10 Atherosclerotic heart disease of native coronary artery without angina pectoris (principal)

== ENCOUNTER → 2019-06-06 | Outpatient (REF) | payer MEDICARE, MEDICAID ==
[~2019-06-06] MED LIST changes: +VALA1TAB5 PO; -VALA1TAB64 PO
[2019-06-06 12:13] LABS: HEMATOCRIT 39.5 % (36.0-47.0); HEMOGLOBIN 12.1 g/dl (12.0-15.5); MEAN CORPUSCULAR HEMOGLOBIN 28.4 pg (27.0-33.0); MEAN CORPUSCULAR HGB CONC 30.6 g/dl (32.0-36.5); MEAN CORPUSCULAR VOLUME 92.7 fl (80.0-96.0); PLATELET COUNT, AUTOMATED 245 10^3/uL (150-450); RED BLOOD COUNT 4.26 10^6/uL (4.00-5.40); WHITE BLOOD COUNT 6.9 10^3/uL (4.0-10.0)
[2019-06-06 12:37] LABS: BLOOD UREA NITROGEN 22 MG/DL (7-18); CALCIUM LEVEL 8.5 MG/DL (8.8-10.2); CARBON DIOXIDE LEVEL 26 MEQ/L (21-32); CHLORIDE LEVEL 106 MEQ/L (98-107); CREATININE FOR GFR 0.89 MG/DL (0.55-1.30); GLOMERULAR FILTRATION RATE > 60.0 (>45); GLUCOSE, FASTING 234 MG/DL (70-100); POTASSIUM SERUM 3.9 MEQ/L (3.5-5.1); SODIUM LEVEL 141 MEQ/L (136-145)
== END ==
PROVIDERS: ATTEND Physician Assistant
DX: I25.10 Atherosclerotic heart disease of native coronary artery without angina pectoris (principal)

== ENCOUNTER → 2019-08-08 | Outpatient (REF) ==
[~2019-08-08] MED LIST changes: -ERYT1OIN26 OD; -ERYT1OIN26 OU; +ERYT5OIN25 OD; +ERYT5OIN25 OU; +VITA-243 PO; -VITA500T PO
== END ==
PROVIDERS: ATTEND Internal Medicine
DX: Z03.818 Encounter for observation for suspected exposure to other biological agents ruled out (principal)

== ENCOUNTER → 2019-09-05 | Outpatient (REF) | payer MEDICARE, MEDICAID ==
[2019-09-05 13:10] LABS: BLOOD UREA NITROGEN 21 MG/DL (7-18); CARBON DIOXIDE LEVEL 30 MEQ/L (21-32); CHLORIDE LEVEL 101 MEQ/L (98-107); CREATININE FOR GFR 0.85 MG/DL (0.55-1.30); GLOMERULAR FILTRATION RATE > 60.0 (>45); GLUCOSE, FASTING 208 MG/DL (70-100); POTASSIUM SERUM 3.9 MEQ/L (3.5-5.1); SODIUM LEVEL 140 MEQ/L (136-145)
[2019-09-05 13:34] LABS: HEMATOCRIT 38.9 % (36.0-47.0); HEMOGLOBIN 11.8 g/dl (12.0-15.5); MEAN CORPUSCULAR HEMOGLOBIN 27.4 pg (27.0-33.0); MEAN CORPUSCULAR HGB CONC 30.3 g/dl (32.0-36.5); MEAN CORPUSCULAR VOLUME 90.5 fl (80.0-96.0); PLATELET COUNT, AUTOMATED 304 10^3/uL (150-450); WHITE BLOOD COUNT 7.7 10^3/uL (4.0-10.0)
== END ==
PROVIDERS: ATTEND Physician Assistant
DX: Z79.899 Other long term (current) drug therapy (principal)

== ENCOUNTER → 2019-10-23 | Outpatient (REF) ==
[~2019-10-23] MED LIST changes: +PANT40TA29 PO; -PANT40TA3 PO; +XARE20TA PO
[2020-01-16 09:09] LABS: GLUCOSE, FASTING SEE SEPARATE REPORT
== END ==
PROVIDERS: ATTEND Physician Assistant
DX: R60.9 Edema, unspecified (principal)

== ENCOUNTER → 2019-12-04 | Outpatient (CLI) | payer MEDICARE, MEDICAID ==
--- NOTE | 2019-12-04 15:35 | REPVR ---
PROCEDURE INFORMATION: Exam: US Duplex Left Lower Extremity Veins, Limited Exam date and time: 12/04/2019 3:23 PM Age: 69 years old Clinical indication: Pain; Leg, lower; Left; Additional info: Left lower extremity pain TECHNIQUE: Imaging protocol: Real-time Duplex ultrasound of the Left Lower Extremity with 2-D newsome scale, color Doppler flow and spectral waveform analysis with image documentation. Limited exam focused on the left lower extremity veins. COMPARISON: No relevant prior studies available. FINDINGS: Left deep veins: The imaged common femoral, femoral, popliteal, and posterior tibial veins are patent without thrombus. Normal compressibility and/or augmentation response. Left superficial veins: The saphenofemoral junction is patent without thrombus. Soft tissues: Unremarkable. IMPRESSION: No evidence of deep vein thrombosis in the visualized lower extremity. Electronically signed by: Kael Junior On 12/04/2019 15:35:11 PM
== END ==
LOC: M RAD 14:59
PROVIDERS: ATTEND Physician Assistant
DX: M79.605 Pain in left leg (principal)

== ENCOUNTER → 2019-12-05 | Outpatient (CLI) | payer MEDICARE, MEDICAID ==
--- NOTE | 2019-12-05 13:59 | REPVR ---
PROCEDURE INFORMATION: Exam: XR Left Knee Exam date and time: 12/05/2019 1:29 PM Age: 69 years old Clinical indication: Pain; Knee; Left; Additional info: Left knee pain TECHNIQUE: Imaging protocol: XR Left knee. Views: 4 or more views. COMPARISON: No relevant prior studies available. FINDINGS: Bones/joints: The visualized osseous structures are unremarkable. No acute fracture or dislocation is seen. There are mild degenerative osteo-arthritic changes with joint space narrowing and osteophyte formation. Soft tissues: There is mild soft tissue swelling. IMPRESSION: No acute fracture or dislocation is seen. Electronically signed by: Marin Canela On 12/05/2019 13:59:51 PM
== END ==
LOC: M RAD 13:18
PROVIDERS: ATTEND Internal Medicine
DX: M17.12 Unilateral primary osteoarthritis, left knee (principal); M25.562 Pain in left knee

== ENCOUNTER → 2019-12-05 | Outpatient (REF) | payer MEDICARE, MEDICAID ==
[2019-12-05 15:47] LABS: HEMATOCRIT 37.7 % (36.0-47.0); HEMOGLOBIN 11.7 g/dl (12.0-15.5); MEAN CORPUSCULAR HEMOGLOBIN 27.9 pg (27.0-33.0); PLATELET COUNT, AUTOMATED 291 10^3/uL (150-450); RED BLOOD COUNT 4.19 10^6/uL (4.00-5.40); WHITE BLOOD COUNT 7.9 10^3/uL (4.0-10.0)
[2019-12-05 16:08] LABS: ERYTHROCYTE SEDIMENTATION RATE 36 mm/hr (0-30)
[2019-12-05 16:17] LABS: ALBUMIN 3.1 GM/DL (3.2-5.2); BILIRUBIN,TOTAL 0.2 MG/DL (0.2-1.0); C REACTIVE PROTEIN QUANTITATIV 1.79 MG/DL (0.00-0.30); CALCIUM LEVEL 8.7 MG/DL (8.8-10.2); CREATININE FOR GFR 1.06 MG/DL (0.55-1.30); POTASSIUM SERUM 4.1 MEQ/L (3.5-5.1); TOTAL PROTEIN 6.7 GM/DL (6.4-8.2); URIC ACID 6.4 MG/DL (2.6-6.0)
== END ==
PROVIDERS: ATTEND Internal Medicine
DX: M17.12 Unilateral primary osteoarthritis, left knee (principal); M25.562 Pain in left knee

== ENCOUNTER → 2019-12-11 | Outpatient (REF) | payer MEDICARE, MEDICAID ==
[2019-12-11 10:10] LABS: HEMATOCRIT 39.6 % (36.0-47.0); HEMOGLOBIN 12.2 g/dl (12.0-15.5); MEAN CORPUSCULAR HEMOGLOBIN 27.9 pg (27.0-33.0); MEAN CORPUSCULAR HGB CONC 30.8 g/dl (32.0-36.5); MEAN CORPUSCULAR VOLUME 90.4 fl (80.0-96.0); PLATELET COUNT, AUTOMATED 266 10^3/uL (150-450); RED BLOOD COUNT 4.38 10^6/uL (4.00-5.40)
[2019-12-11 10:26] LABS: BLOOD UREA NITROGEN 17 MG/DL (7-18); CARBON DIOXIDE LEVEL 26 MEQ/L (21-32); CHLORIDE LEVEL 103 MEQ/L (98-107); CREATININE FOR GFR 0.95 MG/DL (0.55-1.30); GLOMERULAR FILTRATION RATE > 60.0 (>45); GLUCOSE, FASTING 303 MG/DL (70-100); POTASSIUM SERUM 4.1 MEQ/L (3.5-5.1); SODIUM LEVEL 140 MEQ/L (136-145)
[2019-12-11 10:27] LABS: CALCIUM LEVEL 8.6 MG/DL (8.8-10.2)
== END ==
PROVIDERS: ATTEND Internal Medicine
DX: I25.10 Atherosclerotic heart disease of native coronary artery without angina pectoris (principal)

== ENCOUNTER → 2019-12-11 | Outpatient (CLI) | payer MEDICARE, MEDICAID ==
--- NOTE | 2019-12-20 14:20 | REP ---
LEFT LOWER EXTREMITY DUPLEX DOPPLER ARTERIAL ULTRASOUND HISTORY: Nonhealing wounds left leg. Real-time ultrasound evaluation and duplex Doppler interrogation of the left lower extremity arterial system is performed. Diffuse monophasic waveforms are seen throughout the left lower extremity arterial system. There is diffuse moderate calcific plaque noted. There is less than 50% narrowing at the origin of the superficial femoral artery. There is elevated peak systolic velocity and significant stenosis approximately 3:1 at the mid superficial femoral artery. Posterior tibial artery is extremely small with very slow velocity. Anterior tibial artery is the dominant supplying arterial structure to the left foot. Patient was unable to tolerate pain with transducer pressure and could not tolerate ankle brachial indices (DANIELLE) measurement. VELOCITY CHART PSV LEFT (cm/s) Common femoral artery 163 Profunda 160 Proximal SFA 264 Mid-SFA 426 Distal SFA 87 Popliteal 85 Proximal HUDSON 76 Tibioperoneal trunk 54 Proximal ACCOUNT GROUP SUPERVISOR 11 Distal ACCOUNT GROUP SUPERVISOR 13 Distal HUDSON 50 MTDD
== END ==
LOC: M RAD 10:53
PROVIDERS: ATTEND Physician Assistant
DX: I70.249 Atherosclerosis of native arteries of left leg with ulceration of unspecified site (principal); I25.10 Atherosclerotic heart disease of native coronary artery without angina pectoris

== ENCOUNTER → 2020-01-05 | Outpatient (REF) | payer MEDICARE, MEDICAID | PROVIDERS: ATTEND Internal Medicine | DX: Z01.812 Encounter for preprocedural laboratory examination (principal); Z20.828 Contact with and (suspected) exposure to other viral communicable diseases ==

== ENCOUNTER → 2020-01-09 | Outpatient (CLI) | payer MEDICARE, MEDICAID ==
[~2020-01-09] MED LIST changes: +ISOVUE-300 61% 50ML VIAL As Ordered ONE; +LIDOCAINE 1% MDV 20ML VIAL As Ordered ONE; +METOPROLOL 5 MG/5 ML VIAL As Ordered ONE; +MIDAZOLAM INJ 2MG/2ML VIAL (J2250 PER 1MG) As Ordered ONE; +fentaNYL 100 MCG/2 ML INJECTION (J3010) As Ordered ONE; +hydrALAZINE 20MG/ML 1ML VIAL (J0360 PER 20MG) As Ordered ONE
--- NOTE | 2020-01-09 11:38 | ROOPDOC ---
[facility] Report Of Operation Report of Operation DATE OF PROCEDURE: 01/09/20 PREPROCEDURE DIAGNOSES: Atherosclerosis of the [place] arteries with ulceration left calf and left lower extremity pain POSTPROCEDURE DIAGNOSES: Same PROCEDURE: 1. Attempted ultrasound-guided access right common femoral artery, aborted 2. Ultrasound-guided access left common femoral artery 3. Aortoiliofemoral arteriogram and left lower extremity runoff 4. Mynx closure left common femoral artery SURGEON: Vineet Bernardo MD ANESTHESIA: Local anesthesia 9 mL lidocaine. Moderate intravenous conscious sedation was supervised by Dr. Bernardo. The patient was independently monitored by registered nurse assigned to the Department of radiology using a utomated blood pressure, EKG, and pulse oximetry. A detailed sedation record is probably start in the hospital information system. The following is a brief sedation record: Start time 10:28, stop time 11:10, fentanyl 100 g IV, Versed 2 mg IV, Lopressor 10 mg IV, hydralazine 20 mg IV. INDICATION FOR PROCEDURE: This is a very pleasant 69-year-old patient with long- standing history of peripheral vascular disease status post revascularizations in the right lower extremity and right AKA by another provider. She began having worsening discomfort in the left lower extremity, and a nonhealing ulcer in multiple places on the left calf. The patient has had worsening vascular disease leading to nonhealing ulcers in the right lower extremity which ultimately led to her amputation, and she is very worried about worsening ischemia in the left lower extremity with deterioration of the ulcers. She had an arterial duplex in November, which suggested moderate SFA disease, but no occlusions and only mild tibial stenoses, so at that time we felt it was safe to wait and see how she did with wound care, but when she returned to clinic her ulcers had worsened, and she was also having more pain in the leg, so we felt an arteriogram was indicated to see if we might be able to provide an endovascular option for revascularization (which we would prefer due to her extensive medical comorbidities), and if not, at least determine the best option for an open surgical approach if necessary. Risks benefits and alternatives to a left lower extremity arteriogram were explained to the patient and she is agreeable to proceed. Informed consent was obtained. INTERPRETATION: 1. The aorta and proximal common iliac arteries are widely patent bilaterally. The right hypogastric is widely patent. The external iliac occludes at its origin and does not reconstitute until the profunda which receives wispy collaterals from the bilateral iliac patent segments. The left hypogastric and external iliac artery are widely patent. 2. The left superficial femoral artery has a 50% stenosis near the origin, several focal stenoses between 20 and 60% in the proximal third of the vessel, several near occlusions with 85-99% stenosis in the mid superficial femoral artery, and some mild stenoses at the distal SFA before Cayetano's canal. At Cayetano's canal, the popliteal artery is mildly ectatic at its origin but then is patent throughout with a high bifurcation into the anterior tibial artery and the tibioperoneal trunk in the mid knee. The anterior tibial artery is patent to the ankle and then has diminutive vessel flow through the foot. The posterior tibial artery is patent to the ankle and then has diminutive vessel flow into the foot. The peroneal artery is diminutive and has limited flow through the proximal mid calf. REPORT OF OPERATION: Patient was brought to the angiographic suite in stable condition. Her bilateral groins were prepped and draped in a sterile fashion. A timeout was performed. Sedation was administered without complication. The patient was hypertensive and tachycardic, which we initially attributed to anxiety, but after sedation while she was asleep, she remained hypertensive and thus we carefully treated her blood pressure with antihypertensives during the rest of the case. Local anesthesia was administered to the skin and subcutaneous tissue over the right common femoral artery. Ultrasound revealed the artery was diminutive, calcified, and I could not visualize a pulse in the artery. At this point, I felt likely the artery was occluded. We tried to access the artery with ultrasound guidance, and a trickle of blood flow was obtained, but a wire would not pass and I suspect the vessel is chronically occluded versus heavily stenotic. Pressure was held for 2 minutes for good hemostasis and this access was aborted. We then administered local anesthesia to the left skin and subcutaneous tissue over the left common femoral artery. A microneedle was used to access the artery under ultrasound guidance. A wire was passed through this access and the needle was removed. A 4 Arabic glide sheath was placed and flushed with saline. Our initial plan was to use this retrograde ipsilateral access to obtain an aortoiliofemoral arteriogram and rule out inflow disease since the patient's arterial duplex suggested diffusely monophasic flow through the left lower extremity. Additionally, if there was no occlusion on the right and it was just stenotic, we would attempt to navigate the wire through the common femoral artery and use this as a target for contralateral access and up and over treatment of the left lower extremity. The aortoiliofemoral arteriogram was obtained after introducing a Glidewire and a flushing catheter to the distal aorta. Please see findings above. We then removed the catheter over the wire and the left lower extremity runoff was performed through the existing retrograde 4 Arabic sheath in the left common femoral artery. Please see interpretation above. Because there was stenosis at the origin of the SFA and in the common femoral artery, and because the patient is obese with a large pannus, I felt it would be extremely challenging to try to provide an endovascular solution to her multiple stenoses. We would likely be unable to access the common femoral artery proximal enough to treat the proximal SFA. Her large abdomen, despite being retracted cephalad, would make antegrade access extremely challenging anywhere but the distal common femoral artery. Therefore, at this point I feel the best option is an open intervention. I recommend a left common femoral endarterectomy with a left femoral to above-knee popliteal bypass with autologous vs non- autologous conduit. I discussed with the patient that we would not be able to provide an endovascular solution today and she was agreeable to discuss bypass at her next clinic appointment. We then exchange the sheath over the wire for a 5 Arabic sheath and flushed the sheath with saline. A Mynx closure device was deployed and good hemostasis was noted. 5 minutes of pressure was held and sterile dressings were applied. The patient was taken to recovery in stable condition. I did provide antihypertensive orders for recovery in case the patient had recurrent episodes of hypertension during her 4 hour bedrest. She tolerated the procedure and the sedation well. ESTIMATED BLOOD LOSS: Approximately 5 mL. COMPLICATIONS: None. PLAN: Patient may resume home diet and medications but holds Xarelto until 01/10/2020. We will discuss options for a left lower extremity common femoral endarterectomy with patch angioplasty and left above-knee femoropopliteal bypass when the patient returns to clinic. We will obtain a vein mapping of the left lower extremity today to see if she has any autologous vein for bypass. At the patient's request, I have discussed the patient's arteriogram findings and our recommendations going forward with her [id number] Jessica today. We appreciate the opportunity to produce patent care of this patient. VINEET BERNARDO MD Jan 09, 2020 11:38
[2020-01-09 14:15] VITALS: BP 147/72
--- NOTE | 2020-01-09 14:20 | REPVR ---
PROCEDURE INFORMATION: Exam: US Duplex Left Lower Extremity Veins, Limited Exam date and time: 01/09/2020 1:48 PM Age: 69 years old Clinical indication: Screening exam; Preop gsv vein mapping for bypass; Prior surgery; Surgery date: Post-operative (0-2 days); Surgery type: Angio was done x 3 hours priors veinmapping ultrasound today; Additional info: Preop vein mapping greater saphenous left lower extremity TECHNIQUE: Imaging protocol: Real-time Duplex ultrasound of the Left Lower Extremity with 2-D newsome scale, color Doppler flow and spectral waveform analysis with image documentation. Limited exam focused on the left lower extremity veins. COMPARISON: US Duplex, Ext,LOWER veins,unilat LEFT 12/04/2019 3:24 PM FINDINGS: Left deep veins: The common femoral, femoral, proximal profunda femoral and popliteal veins are patent without thrombus. Normal Doppler waveforms. Normal compressibility in the popliteal vein and/or augmentation response, with inability to compress the common femoral and femoral veins due to patient sensitivity. Left superficial veins: Saphenofemoral junction is patent without thrombus. Greater saphenous venous diameters 4.4 mm in the proximal thigh, 4.2 mm in the mid thigh (where there is a collateral vein with diameter of 2.1 mm), 2.5 mm in the distal thigh and 2.0 mm in the proximal calf, with the vein very small in the mid calf. Lesser saphenous venous diameters 1.9 mm in the proximal thigh and 1.8 mm in the mid thigh. Soft tissues: Unremarkable. IMPRESSION: 1. No deep venous thrombus demonstrated in the left lower extremity, allowing for limitations as above. 2. Saphenous venous diameters as described, with a collateral vein in the mid thigh. Electronically signed by: Aaron Fraga On 01/09/2020 14:20:19 PM
== END ==
LOC: M IRPRO 08:38
PROVIDERS: ATTEND Surgery Vascular Surgery
DX: I70.222 Atherosclerosis of native arteries of extremities with rest pain, left leg (principal); I70.242 Atherosclerosis of native arteries of left leg with ulceration of calf; I87.2 Venous insufficiency (chronic) (peripheral); I12.9 Hypertensive chronic kidney disease with stage 1 through stage 4 chronic kidney disease, or unspecified chronic kidney disease; R00.0 Tachycardia, unspecified; E78.00 Pure hypercholesterolemia, unspecified; F32.9 Major depressive disorder, single episode, unspecified; F41.9 Anxiety disorder, unspecified; I69.398 Other sequelae of cerebral infarction; N18.9 Chronic kidney disease, unspecified; I48.91 Unspecified atrial fibrillation; Z79.01 Long term (current) use of anticoagulants; Z79.82 Long term (current) use of aspirin; Z79.899 Other long term (current) drug therapy
CPT/HCPCS: 36200; 75630; 93971; 99152; 99153; C1760; C1769; C1887; C1894; J0360; J1644; J2250; J3010; Q9967

== ENCOUNTER → 2020-01-16 | Outpatient (REF) | payer MEDICARE, MEDICAID ==
[~2020-01-16] MED LIST changes: -ISOVUE-300 61% 50ML VIAL As Ordered ONE; -LIDOCAINE 1% MDV 20ML VIAL As Ordered ONE; -METOPROLOL 5 MG/5 ML VIAL As Ordered ONE; -MIDAZOLAM INJ 2MG/2ML VIAL (J2250 PER 1MG) As Ordered ONE; -fentaNYL 100 MCG/2 ML INJECTION (J3010) As Ordered ONE; -hydrALAZINE 20MG/ML 1ML VIAL (J0360 PER 20MG) As Ordered ONE
[2020-01-16 17:33] LABS: HEMATOCRIT 35.6 % (36.0-47.0); HEMOGLOBIN 10.7 g/dl (12.0-15.5); MEAN CORPUSCULAR HEMOGLOBIN 27.1 pg (27.0-33.0); MEAN CORPUSCULAR HGB CONC 30.1 g/dl (32.0-36.5); MEAN CORPUSCULAR VOLUME 90.1 fl (80.0-96.0); PLATELET COUNT, AUTOMATED 330 10^3/uL (150-450); RED BLOOD COUNT 3.95 10^6/uL (4.00-5.40); WHITE BLOOD COUNT 8.4 10^3/uL (4.0-10.0)
[2020-01-16 18:00] LABS: HEMOGLOBIN A1c 9.3 %
[2020-01-16 18:07] LABS: ALBUMIN 2.9 GM/DL (3.2-5.2); BILIRUBIN,TOTAL 0.2 MG/DL (0.2-1.0); CALCIUM LEVEL 8.8 MG/DL (8.8-10.2); CHOLESTEROL RISK RATIO 3.6 (<5); CREATININE FOR GFR 1.17 MG/DL (0.55-1.30); GLOMERULAR FILTRATION RATE 49.1 (>45); TOTAL PROTEIN 6.4 GM/DL (6.4-8.2)
== END ==
PROVIDERS: ATTEND Physician Assistant
DX: I73.9 Peripheral vascular disease, unspecified (principal); Z79.899 Other long term (current) drug therapy

== ENCOUNTER → 2020-02-01 | Outpatient (REF) | PROVIDERS: ATTEND Internal Medicine | DX: Z20.828 Contact with and (suspected) exposure to other viral communicable diseases (principal) ==

== ENCOUNTER → 2020-02-01 | Outpatient (REF) | payer MEDICARE, MEDICAID | LOC: M LAB REF 15:49 | PROVIDERS: ATTEND Physician Assistant | DX: L91.8 Other hypertrophic disorders of the skin (principal) ==

== ENCOUNTER → 2020-02-08 | Outpatient (REF) | payer MEDICARE, MEDICAID ==
[~2020-02-08] MED LIST changes: +ACET1TAB55 PO; +ALLO100T PO; +ASPI1CHW3 PO; +BISA10SU4 PR; +CVS2POW3 TOP; +D31000TA2 PO; +DOXY-350 PO; +DOXY100T2 PO; +ENEMENE PR; +FERR325T82 PO; +FLAG500T PO; -FURO40TA2; +GLUC1INJ11 IM; +INSUDET SC; -LISI-538; -LISI-538 PO; +LISI20TA33; +LISI20TA33 PO; +LOPR1TAB6 PO; +MAPA500T2 PO; +METF500T13 PO; +METO50TA7 PO; +MOM30SS2 PO; +OMEP1CAP73 PO; +PERC5TAB12 PO; +PERCOCET PO; +SENN-80 PO; +SENN18TA PO; +SERT50TA29 PO; +SITA50TAB PO; +VASC1CAP2 PO; +XALA0.007 OU
== END ==
LOC: EDSTATUS 03-19 14:10
PROVIDERS: ATTEND Internal Medicine
DX: Z20.828 Contact with and (suspected) exposure to other viral communicable diseases (principal)

== ENCOUNTER → 2020-02-14 | Outpatient (REF) | payer MEDICARE, MEDICAID | PROVIDERS: ATTEND Internal Medicine | DX: Z20.828 Contact with and (suspected) exposure to other viral communicable diseases (principal) ==

== ENCOUNTER → 2020-02-28 | Outpatient (REF) | payer MEDICARE, MEDICAID ==
[~2020-02-28] MED LIST changes: -ACET1TAB55 PO; -ALLO100T PO; -ASPI1CHW3 PO; -BISA10SU4 PR; -CVS2POW3 TOP; -D31000TA2 PO; -DOXY-350 PO; -DOXY100T2 PO; -ENEMENE PR; -FERR325T82 PO; -FLAG500T PO; +FURO40TA2; -GLUC1INJ11 IM; -INSUDET SC; +LISI-538; +LISI-538 PO; -LISI20TA33; -LISI20TA33 PO; -LOPR1TAB6 PO; -MAPA500T2 PO; -METF500T13 PO; -METO50TA7 PO; -MOM30SS2 PO; -OMEP1CAP73 PO; -PERC5TAB12 PO; -PERCOCET PO; -SENN-80 PO; -SENN18TA PO; -SERT50TA29 PO; -SITA50TAB PO; -VASC1CAP2 PO; -XALA0.007 OU
[2020-02-28 13:36] LABS: BASO # 0.1 10^3/uL (0.0-0.2); BASO % 0.6 % (0.0-1.0); EOS # 0.2 10^3/uL (0.0-0.5); EOS % 1.9 % (0.0-3.0); HEMATOCRIT 38.8 % (36.0-47.0); HEMOGLOBIN 11.5 g/dl (12.0-15.5); LYMPH # 1.6 10^3/uL (1.5-5.0); LYMPH % 20.2 % (24.0-44.0); MEAN CORPUSCULAR HEMOGLOBIN 26.8 pg (27.0-33.0); MEAN CORPUSCULAR HGB CONC 29.6 g/dl (32.0-36.5); MEAN CORPUSCULAR VOLUME 90.4 fl (80.0-96.0); MONO # 0.5 10^3/uL (0.0-0.8); MONO % 6.4 % (0.0-5.0); NEUTROPHILS # 5.5 10^3/uL (1.5-8.5); NEUTROPHILS % 70.4 % (36.0-66.0); PLATELET COUNT, AUTOMATED 306 10^3/uL (150-450); RED BLOOD COUNT 4.29 10^6/uL (4.00-5.40); WHITE BLOOD COUNT 7.8 10^3/uL (4.0-10.0)
[2020-02-28 13:55] LABS: ALBUMIN 3.2 GM/DL (3.2-5.2); CALCIUM LEVEL 9.1 MG/DL (8.8-10.2); CREATININE FOR GFR 1.07 MG/DL (0.55-1.30); GLOMERULAR FILTRATION RATE 54.3 (>45); MAGNESIUM LEVEL 1.8 MG/DL (1.8-2.4); PHOSPHORUS LEVEL 3.5 MG/DL (2.5-4.9); POTASSIUM SERUM 4.5 MEQ/L (3.5-5.1); URIC ACID 7.1 MG/DL (2.6-6.0)
[2020-02-28 14:06] LABS: PTH INTACT 42.3 PG/ML (18.5-88.0)
[2020-02-28 16:59] LABS: APPEARANCE, URINE HAZY (CLEAR); BACTERIA, URINE AUTO 1+ (NEGATIVE); BILIRUBIN, URINE AUTO NEGATIVE (NEGATIVE); BLOOD, URINE BLOOD 3+ (NEGATIVE); COLOR, URINE STRAW (YELLOW); GLUCOSE, URINE (UA) AUTO NEGATIVE (NEGATIVE); KETONE, URINE AUTO NEGATIVE (NEGATIVE); LEUKOCYTE ESTERASE, URINE AUTO TRACE (NEGATIVE); MUCUS, URINE SMALL (NEGATIVE); NITRITE, URINE AUTO NEGATIVE (NEGATIVE); PROTEIN, URINE AUTO NEGATIVE (NEGATIVE); RBC, URINE AUTO 35 /HPF (0-3); SPECIFIC GRAVITY URINE AUTO 1.008 (1.002-1.035); SQUAMOUS EPITHELIAL CELL UR AU 1 /HPF (0-6); UROBILINOGEN, URINE AUTO 0.2 mg/dL (0.0-2.0); WBC, URINE AUTO 11 /HPF (0-3)
== END ==
PROVIDERS: ATTEND Physician Assistant
DX: I25.10 Atherosclerotic heart disease of native coronary artery without angina pectoris (principal)

== ENCOUNTER → 2020-03-03 | Outpatient (REF) | payer MEDICARE, MEDICAID ==
[~2020-03-03] MED LIST changes: +ALLO100T PO; +ASPI1CHW3 PO; +CVS2POW3 EX; +D31000TA2 PO; +FERR325T82 PO; +INSUDET SC; +MAPA500T2 PO; +METF500T13 PO; +OMEP1CAP73 PO; +SENN-80 PO; +SENN18TA PO; +SITA50TAB PO; +VASC1CAP2 PO; +XALA0.007 OU
== END ==
PROVIDERS: ATTEND Internal Medicine
DX: Z20.828 Contact with and (suspected) exposure to other viral communicable diseases (principal)

== ENCOUNTER → 2020-03-04 | Outpatient (REF) | payer MEDICARE, MEDICAID ==
[2020-03-04 10:11] LABS: HEMATOCRIT 39.2 % (36.0-47.0); HEMOGLOBIN 11.6 g/dl (12.0-15.5); MEAN CORPUSCULAR HEMOGLOBIN 26.7 pg (27.0-33.0); MEAN CORPUSCULAR HGB CONC 29.6 g/dl (32.0-36.5); MEAN CORPUSCULAR VOLUME 90.3 fl (80.0-96.0); PLATELET COUNT, AUTOMATED 318 10^3/uL (150-450); RED BLOOD COUNT 4.34 10^6/uL (4.00-5.40); WHITE BLOOD COUNT 8.3 10^3/uL (4.0-10.0)
[2020-03-04 10:38] LABS: BLOOD UREA NITROGEN 16 MG/DL (7-18); CALCIUM LEVEL 8.9 MG/DL (8.8-10.2); CARBON DIOXIDE LEVEL 28 MEQ/L (21-32); CHLORIDE LEVEL 104 MEQ/L (98-107); CREATININE FOR GFR 0.93 MG/DL (0.55-1.30); GLOMERULAR FILTRATION RATE > 60.0 (>45); GLUCOSE, FASTING 173 MG/DL (70-100); POTASSIUM SERUM 3.9 MEQ/L (3.5-5.1); SODIUM LEVEL 141 MEQ/L (136-145)
== END ==
PROVIDERS: ATTEND Internal Medicine
DX: I25.10 Atherosclerotic heart disease of native coronary artery without angina pectoris (principal)

== ENCOUNTER → 2020-03-07 | Outpatient (REF) | payer MEDICARE, MEDICAID ==
[~2020-03-07] MED LIST changes: +ACET1TAB55 PO; +BISA10SU4 PR; -CVS2POW3 EX; +CVS2POW3 TOP; +DOXY-350 PO; +DOXY100T2 PO; +ENEMENE PR; +FLAG500T PO; -FURO40TA2; +GLUC1INJ11 IM; +LOPR1TAB6 PO; +METO50TA7 PO; +MOM30SS2 PO; +PERC5TAB12 PO; +PERCOCET PO; +SERT50TA29 PO
== END ==
PROVIDERS: ATTEND Internal Medicine
DX: Z20.828 Contact with and (suspected) exposure to other viral communicable diseases (principal)

== ENCOUNTER → 2020-03-13 | Outpatient (REF) ==
[~2020-03-13] MED LIST changes: -LISI-538; -LISI-538 PO; +LISI20TA33; +LISI20TA33 PO
== END ==
PROVIDERS: ATTEND Internal Medicine
DX: Z20.828 Contact with and (suspected) exposure to other viral communicable diseases (principal)

== ENCOUNTER → 2020-03-19 | Outpatient (REF) | PROVIDERS: ATTEND Internal Medicine | DX: Z20.828 Contact with and (suspected) exposure to other viral communicable diseases (principal) ==

== ENCOUNTER → 2020-03-21 | Outpatient (REF) | payer MEDICAID, MEDICARE | PROVIDERS: ATTEND Internal Medicine | DX: Z01.812 Encounter for preprocedural laboratory examination (principal); Z20.828 Contact with and (suspected) exposure to other viral communicable diseases ==

== ENCOUNTER → 2020-03-21 | Outpatient (REF) | payer MEDICARE, MEDICAID ==
[~2020-03-21] MED LIST changes: -ACET1TAB55 PO; -BISA10SU4 PR; +CVS2POW3 EX; -CVS2POW3 TOP; -DOXY-350 PO; -DOXY100T2 PO; -ENEMENE PR; -FLAG500T PO; +FURO40TA2; -GLUC1INJ11 IM; +LISI-538; +LISI-538 PO; -LISI20TA33; -LISI20TA33 PO; -METO50TA7 PO; -MOM30SS2 PO; -PERC5TAB12 PO; -SERT50TA29 PO
[2020-03-21 16:28] LABS: RSV AMPLIFICATION NEGATIVE (NEGATIVE)
== END ==
PROVIDERS: ATTEND Internal Medicine
DX: Z01.812 Encounter for preprocedural laboratory examination (principal); Z20.828 Contact with and (suspected) exposure to other viral communicable diseases
CPT/HCPCS: 15271; 87631; Q4186

== ENCOUNTER 2020-03-25 08:21 | Inpatient (IN) | payer MEDICARE, MEDICAID ==
--- NOTE | 2020-03-07 15:35 | HPEPDOC ---
[facility] Medical History & Physical Date of Admission Mar 25, 2020 Date of Service: Mar 25, 2020 History and Physical Vascular surgery. Dr. Bernardo HISTORY OF PRESENT ILLNESS: The patient is a 69-year-old female with history of PAD and history of right AKA 2006. The patient is known to have a history of prior stroke with right-sided hemiparesis and dysarthria. She does have difficulty getting her words out at times, but is alert and oriented x3, provides history for herself, consents for herself. The patient is status post left lower extremity angiogram as per Dr. Bernardo 01/09/20, no endovascular intervention, it was discussed with the patient as per Dr. Bernardo that she would need to consider left common femoral endarterectomy and left femoral to above-knee popliteal bypass. Vein mapping was obtained. 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 Kidney Disease Atrial Fibrillation Gastroesophageal Reflux Disease PAST SURGICAL HISTORY: Knee Surgery - RT Carotid Endarterectomy - LEFT Bypass - GRAFT LEFT LOWER EXTREMITY 09/17/16 Right AKA - Bern Angiogram - LLE 01/09/20 SOCIAL HISTORY: Former smoker FAMILY HISTORY: Father: , [place] Mother: , unknown causes. ALLERGIES: Please see below. REVIEW OF SYSTEMS: As noted in HPI otherwise 11 point review of systems unremarkable. HOME MEDICATIONS: Please see below. PHYSICAL EXAMINATION: GENERAL APPEARANCE: Pleasant, alert and oriented HEENT: Moist mucous membranes CARDIOVASCULAR: Regular rate and rhythm LUNGS: Clear to auscultation ABDOMEN: Soft nontender MUSCULOSKELETAL: Right AKA EXTREMITIES: Right AKA. Left lower extremity with reddish discoloration pretibial area and left foot sitting with legs dependent. Wound is noted at the medial aspect of the calf and the lateral aspect. No wounds on the foot. Pedal pulses are nonpalpable. Monophasic DP/PT left foot. Mild edema is noted around the ankle. NEUROLOGICAL: Left-sided weakness IMAGING: Service Date and Time: 01/09/2020 1348 Technologist: TYESHA Exam Requested: Duplex, Ext,LOWER veins,unilatLEFT Reason for Patient Visit: ATHEROSCLEROSIS Reason for Exam: preop vein mapping greater saphenous left lower extremity PROCEDURE INFORMATION: Exam: US Duplex Left Lower Extremity Veins, Limited Exam date and time: 01/09/2020 1:48 PM Age: 69 years old Clinical indication: Screening exam; Preop gsv vein mapping for bypass; Prior surgery; Surgery date: Post-operative (0-2 days); Surgery type: Angio was done x 3 hours priors veinmapping ultrasound today; Additional info: Preop vein mapping greater saphenous left lower extremity TECHNIQUE: Imaging protocol: Real-time Duplex ultrasound of the Left Lower Extremity with 2-D newsome scale, color Doppler flow and spectral waveform analysis with image documentation. Limited exam focused on the left lower extremity veins. COMPARISON: US Duplex, Ext,LOWER veins,unilat LEFT 12/04/2019 3:24 PM FINDINGS: Left deep veins: The common femoral, femoral, proximal profunda femoral and popliteal veins are patent without thrombus. Normal Doppler waveforms. Normal compressibility in the popliteal vein and/or augmentation response, with inability to compress the common femoral and femoral veins due to patient sensitivity. Left superficial veins: Saphenofemoral junction is patent without thrombus. Greater saphenous venous diameters 4.4 mm in the proximal thigh, 4.2 mm in the mid thigh (where there is a collateral vein with diameter of 2.1 mm), 2.5 mm in the distal thigh and 2.0 mm in the proximal calf, with the vein very small in the mid calf. Lesser saphenous venous diameters 1.9 mm in the proximal thigh and 1.8 mm in the mid thigh. Soft tissues: Unremarkable. IMPRESSION: 1. No deep venous thrombus demonstrated in the left lower extremity, allowing for limitations as above. 2. Saphenous venous diameters as described, with a collateral vein in the mid thigh. Electronically signed by: Aaron Fraga On 01/09/2020 14:20:19 PM ASSESSMENT/PLAN: 1. Atherosclerosis augustine vessels with lower extremities Patient with previous history of right AKA. The patient is noted to have monophasic Doppler signals at the left DP/PT. Left lower extremity arterial ultrasound was obtained 12/11/19 indicating d iffusely monophasic flow in the left lower extremity, significantly calcified vessels, mid SFA stenosis, TRICOT KNITTER is very small with trickle flow and slow velocity, HUDSON is dominant vessel to the foot. Angiogram as per Dr. Bernardo 01/09/20 with no endovascular option. The patient's vein mapping is also reviewed by Dr. Bernardo. Recommendation as per Dr. Cederstrand is for left femoral endarterectomy, left femoral to above- knee popliteal bypass with possible in situ vein, possible PTFE. The procedure, risks, benefits and alternatives are reviewed with the patient. All questions are answered. The patient wishes to proceed, informed consent is obtained and placed with the chart. Transfusion consent is obtained and placed with the chart. Medical clearance is requested and will be placed with the chart. Cardiac clearance with stress test within one year is requested and will be placed with the chart. Continue wound care for the patient's left lower extremity wounds as per Dr. Ambrosio. Admission vital signs pending. Admission labs pending to include CBC, BMP, INR, PTT, type and screen. IV fluids as per anesthesia NPO. The patient is noted to be allergic to penicillin and Ancef, BMI 43.8. Vancomycin 2 g IV preoperatively. Continue aspirin/statin. The patient is aware she will not need to hold aspirin for the procedure. Patient is on Xarelto, she is advised to hold Xarelto the day prior to and the day of the procedure. 2. Chronic venous insufficiency Ultrasound of left lower extremity 12/04/19 negative for DVT. She spends long periods of time sitting with the left leg dependent in her motorized chair. Would recommend elevation. 3. Status post right AKA 2006 4. BMI 43.8 Complicates care. Vital Signs Admission vital signs pending. Laboratory Data Labs 24H Admission labs pending. Home Medications Scheduled (Aleve) 220 Mg Cap, 220 MG PO DAILY Ascorbic Acid (Vitamin C) 500 Mg Tab, 500 MG PO DAILY Aspirin (Aspirin) 325 Mg Tab, 325 MG PO DAILY Baclofen (Baclofen) 10 Mg Tab, 10 MG PO TID Calcium Carbonate/Vitamin D3 (Calcium 500-Vit D3 400 Tablet) 1 Tab Tab, 1 TAB PO DAILY Cholecalciferol (Vitamin D-3) 1,000 Unit Tab, 1,000 UNIT PO DAILY Erythromycin Base (Erythromycin) 1 Dose/1 Gm Oint, 5 MG OU QID Metoprolol Tartrate (Metoprolol Tartrate) 25 Mg Tab, 25 MG PO BID Pantoprazole Sodium (Pantoprazole Sodium) 40 Mg Tab, 40 MG PO DAILY Rivaroxaban (Xarelto) 20 Mg Tablet, 20 MG PO DAILY with food Ropinirole HCl (Ropinirole HCl) 0.25 Mg Tab, 0.25 MG PO QHS Rosuvastatin Calcium (Crestor) 20 Mg Tab, 20 MG PO QHS Sertraline Hcl (Zoloft) 100 Mg Tab, 100 MG PO QHS Sulfamethoxazole/Trimethoprim (Bactrim Ds Tablet) 1 Tab Tab, 1 TAB PO BID Valsartan (Diovan) 160 Mg Tab, 160 MG PO DAILY Scheduled PRN Tramadol HCl (Tramadol HCl) 50 Mg Tab, 50 MG PO for PAIN OR FEVER Miscellaneous Medications Furosemide (Furosemide) 40 Mg Tab Levofloxacin (Levofloxacin) 500 Mg Tab Lisinopril (Lisinopril) 20 Mg Tab [Smz/Tmp] Allergies Coded Allergies: MS - Penicillins (Verified Allergy, Unknown, 03/16/17) MS - Penicillins Cross Reactors (Verified Allergy, Unknown, 03/16/17) A-FIB/CHADSVASC A-FIB History Current/History of A-Fib/PAF?: Yes Current PO Anticoag Therapy: Yes Renetta Pantoja Mar 07, 2020 15:35
[~2020-03-25] VITALS: Ht 149.9 cm; Wt 97.5 kg
[~2020-03-25 08:21] MED LIST changes: -ACET1TAB55 PO; -BISA10SU4 PR; -DOXY-350 PO; -DOXY100T2 PO; -ENEMENE PR; -FLAG500T PO; -GLUC1INJ11 IM; +LIDOCAINE 1% MDV 20ML VIAL SQ PRN; +LISI-538; +LISI-538 PO; -LISI20TA33; -LISI20TA33 PO; -LOPR1TAB6 PO; +LR 1,000 ML IV ONE; -METO50TA7 PO; -MOM30SS2 PO; -PERC5TAB12 PO; -PERCOCET PO; -SERT50TA29 PO; +VANCOMYCIN HCL 1,000 MG, VIAL MATE ADAPTER 1 EACH in D5W 250 ML IV ONE
[2020-03-25] MEDS ORDERED: VANCOMYCIN 1000MG/20ML VIAL As Ordered ONE (09:39)
[2020-03-25] MEDS ORDERED: propofoL 200 MG/20 ML VIAL As Ordered ONE ×2 (10:26→12:38)
[2020-03-25] MEDS ORDERED: fentaNYL 250 MCG/5 ML INJECTION (J3010) As Ordered ONE (10:26)
[2020-03-25] MEDS ORDERED: MIDAZOLAM INJ 2MG/2ML VIAL (J2250 PER 1MG) As Ordered ONE (10:26)
[2020-03-25] MEDS ORDERED: ROCURONIUM BROMIDE 50 MG/5 ML VIAL As Ordered ONE ×2 (10:26→12:29)
[2020-03-25] MEDS ORDERED: LIDOCAINE 2% 100MG/5ML SDV (FOR ANES.) As Ordered ONE (10:27)
[2020-03-25] MEDS ORDERED: ONDANSETRON 4MG/2ML VIAL As Ordered ONE (10:27)
[2020-03-25] MEDS ORDERED: HEPARIN SOD (PORCINE) 5000UNITS/ML 1ML VIAL/SYRINGE As Ordered ONE ×3 (10:38→14:34)
[2020-03-25] MEDS ORDERED: THROMBIN SOLN 20,000 UNITS KIT As Ordered ONE (11:05)
[2020-03-25] MEDS ORDERED: LIDOCAINE 2% W/EPINEPHRINE 20ML VIAL **PRES FREE As Ordered ONE (11:51)
[2020-03-25] MEDS ORDERED: NEOSTIGMINE 10MG/10ML VIAL (J2710 PER 0.5MG) As Ordered ONE (15:08)
[2020-03-25] MEDS ORDERED: GLYCOPYRROLATE INJ 0.2 MG/ML 2 ML VIAL As Ordered ONE (15:08)
[2020-03-25] MEDS ORDERED: METOCLOPRAMIDE INJ 10MG/2ML VIAL (J2765 PER 1) As Ordered ONE (15:49)
[2020-03-25] MEDS ORDERED: ESMOLOL INJ 100MG/10ML VIAL As Ordered ONE (15:53)
[2020-03-25] MEDS ORDERED: LABETALOL 100MG/20ML VIAL As Ordered ONE (16:15)
[2020-03-25] MEDS: LABETALOL 100MG/20ML VIAL IV SCH ×5 (16:16→17:36)
[2020-03-25] MEDS ORDERED: ONDANSETRON 4MG/2ML VIAL IV PRN (16:30)
[2020-03-25] MEDS ORDERED: fentaNYL 100 MCG/2 ML INJECTION (J3010) IV PRN (16:30)
[2020-03-25] MEDS ORDERED: LR 1,000 ML IV SCH (16:30)
[2020-03-25] MEDS ORDERED: LABETALOL 100MG/20ML VIAL IV SCH (16:30)
--- NOTE | 2020-03-25 17:28 | ROOPDOC ---
[facility] Report Of Operation Report of Operation DATE OF PROCEDURE: 03/25/20 PREPROCEDURE DIAGNOSES: Atherosclerosis of the [place] arteries with nonhealing ulcers left lower pretibial leg POSTPROCEDURE DIAGNOSES: Same PROCEDURE: 1. Left common femoral endarterectomy with xenosure patch angioplasty 2. Left femoral to above-knee popliteal artery bypass with ringed PTFE SURGEON: Vineet Bernardo MD ANESTHESIA: General anesthesia and local INDICATION FOR PROCEDURE: This is a very pleasant 70-year-old patient with a long-standing history of atherosclerosis in the [place] arteries, history of right above-knee amputation, and a left lower extremity worsening vascular disease with nonhealing pretibial ulcers of the left leg. The patient underwent an arteriogram that showed near-complete occlusion of the left common femoral artery with limited flow into the left superficial femoral artery with reconstitution above the knee through collateral circulation. Risks benefits and alternatives to a left femoral endarterectomy and patch angioplasty, and a left femoral to above-knee popliteal bypass were explained to the patient she was agreeable to proceed. We considered using in situ vein, but her pain is a bit small in the mid and lower thigh, and unlikely to dilate enough to be adequate size. Additionally, the patient has venous insufficiency in the left leg with ve nous stasis ulcer, thus I think further limiting her venous outflow by using her greater saphenous vein is likely to compound the problem. Therefore, we will use a PTFE ringed bypass graft today. The patient is agreeable to the plan. Informed consent was obtained. REPORT OF OPERATION: The patient was brought to your in stable condition and placed supine on your table. General anesthesia and antibiotics were administered without complication. Her bilateral groins and left lower extremity were prepped and draped in a sterile fashion and Ioban was placed over the skin. A timeout was performed. An oblique incision was made over the left inguinal ligament carried down through subcutaneous tissues with Bovie cautery. Large bridging veins were suture ligated and divided. The patient is morbidly obese and has significant adipose tissue, and her dissection was very deep. We identified the femoral sheath and this was opened longitudinally. We skeletonized the femoral vessels proximal and distally within the incision. Collateral vessels were preserved. Vesseloops were placed around collateral circumflex vessels the SFA profunda. We then made a longitudinal incision over the medial thigh just above the knee. This was carried down to the subcutaneous tissue. Care was taken to avoid the saphenous vein. We continued her dissection down to the fascia which was sharply incised. We then retracted the muscle posteriorly. This was also a very deep incision with copious adipose tissue. We identified the popliteal vein and artery and the artery was skeletonized proximally and distally within the incision. Collaterals were preserved with Vesseloops and a vessel loop was placed proximally and distally on the artery. 5000 units of heparin was given a lab circulate by anesthesia. A clamp was then placed on the common femoral artery just proximal to the circumflex vessels and a soft area of the vessel. We secured the other Vesseloops and an arteriotomy was made. We carefully elevated the near occlusive bulky calcified plaque in the common femoral artery, profunda, and SFA. This was sent for pathology. Care was taken to remove all loose intima and debris. Next, we irrigated with heparinized saline. A xenosure patch was used to close E arteriotomy in a running fashion. Before the final sutures are placed, we flushed inflow and outflow arteries and then posterior final sutures after irrigated with heparinized saline. Flow was restored in good hemostasis was noted. A tunneler was used to tunnel a 6 mm 70 cm ringed PTFE graft from our above-knee popliteal incision up to the femoral exposure. An additional thousand units of heparin was given and allowed to circulate. Clamps were replaced on the common femoral artery and the Vesseloops were resecured. An arteriotomy was made in the patch and the graft was beveled at the proximal end. We then anastomosis the graft to the artery patch and an end-to-side fashion with running Prolene suture. Before the final sutures are placed, we flushed the inflow and outflow arteries and placed a clamp on the graft. We placed her final sutures after irrigated with heparinized saline and then restart flow. Good hemostasis was noted. We then cut the graft to the appropriate length for a tension-free anastomosis on the popliteal artery. We beveled the end of the graft. The Vesseloops were secured on the popliteal artery and an arteriotomy was made. The graft was anastomosed to the artery and an end to side fashion with running hemostatic Prolene suture. Before the final sutures are placed, we flushed the inflow and outflow artery and flushed through the graft and irrigated with heparinized saline. We then placed the final sutures and restored flow. Good hemostasis was noted. Doppler confirmed excellent flow in the popliteal artery proximal and distal to the graft, as well as in the profunda and SFA distal to her endarterectomy. We then irrigated both incisions with copious amounts of normal saline. Local anesthesia was administered to the skin and subcutaneous tissue around the incisions. The patient had copious adipose tissue and extremely thin friable fascia, thus closing both incisions was very challenging. We closed the groin incision and 5 layers of running 2-0 Vicryl suture, and approximated the deep dermal air with interrupted 3-0 Vicryl suture. Skin carolyn were used to close the skin. We closed the above-knee incision in 3 layers of running 2-0 Vicryl suture, and approximated the deep dermal layer with interrupted 3-0 Vicryl suture, and close the skin with skin carolyn. Both incisions were clean and dried. 4 x 4's and Tegaderms were placed. The patient was allowed to awaken from anesthesia was taken to recovery in stable condition. She tolerated the procedure well. SPECIMEN: Left femoral plaque sent for pathology ESTIMATED BLOOD LOSS: Approximately 150 mL. COMPLICATIONS: None. PLAN: We will admit to the hospitalist team and we appreciate their assistance with this patient. It is okay to resume the patient's Xarelto the morning. We will plan to remove the Fernandes catheter in the morning. Okay to resume preoperative diet. We will encourage her to eat as much protein is possible to help with healing. She will be challenging to heal due to morbid obesity with significant adipose tissue, weak thin fascia, thin skin, and poor tissue integrity. Analgesia as needed. Activity as tolerated. We appreciate the opportunity to participate in the care of this patient. VINEET BERNARDO MD Mar 25, 2020 17:27
[2020-03-25] MEDS ORDERED: HYDROmorphone 2 MG TAB PO PRN (17:30)
[2020-03-25] MEDS ORDERED: PILL CUTTER 1 EACH XX PRN (17:45)
[2020-03-25] MEDS ORDERED: fentaNYL 100 MCG/2 ML INJECTION (J3010) As Ordered ONE (18:16)
[2020-03-25 19:15] VITALS: BP 162/80
[2020-03-25] MEDS ORDERED: GLUCAGON INJ 1MG VIAL SC PRN (19:15)
[2020-03-25] MEDS ORDERED: GLUCOSE 4GM CHEW TABLET PO PRN (19:15)
[2020-03-25] MEDS ORDERED: DEXTROSE 50% 50 ML SYRINGE IV PRN (19:15)
[2020-03-25] MEDS: DOCUSATE SODIUM 100MG CAPSULE PO SCH (20:12)
[2020-03-25 20:15] VITALS: BP 161/73
[2020-03-25] MEDS: SENNA 8.6 MG TAB (SENOKOT) PO SCH (20:16)
[2020-03-25] MEDS: SERTRALINE HCL 50 MG TAB PO SCH (20:16)
[2020-03-25] MEDS: METOPROLOL TART 25 MG TABLET PO SCH (20:17)
[2020-03-25] MEDS: ROSUVASTATIN 10 MG TAB (CRESTOR) PO SCH (20:17)
[2020-03-25] MEDS: HumaLOG INSULIN (NovoLOG) PER UNIT SC SCH (20:20)
[2020-03-26] VITALS (18 sets, daily range): BP systolic 127–157; BP diastolic 58–82; O2SAT 94–98
--- NOTE | 2020-03-26 00:06 | HPEPDOC ---
General Date of Admission Mar 25, 2020 at 08:21 Date of Service: Mar 25, 2020 Chief Complaint The patient is a 70-year-old female admitted with a reason for visit of Atheroscierosis [place] Vessels Lower Extremities. 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 She underwent Left common femoral endarterectomy with xenosure patch angioplasty, Left femoral to above-knee popliteal artery bypass with ringed PTFE. I am seeing the Patient in PACU. She is still somnolent and groggy from the anaesthesia. She did complain of left pain pain, leg feeling warm and having throbbing pain. Her leg was hypersensitive to touch even the blankets over the leg were bothering her. She could not rate her pain . Home Medications Scheduled Acetaminophen (Mapap) 500 Mg Tablet, 1,000 MG PO QHS, (Reported) Allopurinol (Allopurinol) 100 Mg Tablet, 100 MG PO DAILY, (Reported) Aspirin (Aspirin) 81 Mg Tab.chew, 81 MG PO DAILY, (Reported) Cholecalciferol (Vitamin D3) (Vitamin D3) 1,000 Unit Tablet, 1,000 UNITS PO DAILY, (Reported) Ferrous Sulfate (Iron) 325 Mg Tablet, 325 MG PO DAILY, (Reported) Furosemide (Furosemide) 40 Mg Tab, DAILY, (Reported) Icosapent Ethyl (Vascepa) 1 Gm Capsule, 2 GM PO BID, (Reported) Insulin Detemir (Levemir) 100 Unit/1 Ml Vial, 20 UNITS SC DAILY Latanoprost (Xalatan) 0.005% 2.5ML Drops, 1 DROP OU QPM, (Reported) Metformin HCl (Metformin HCl) 500 Mg Tablet, 500 MG PO BID, (Reported) Metoprolol Tartrate (Lopressor) 50 Mg Tablet, 50 MG PO DAILY Miconazole Nitrate (Anti-Fungal Powder) 71 Gm Powder, 2 % EX BID, (Reported) Omeprazole (Omeprazole) 20 Mg Capsule.dr, 20 MG PO DAILY, (Reported) Rivaroxaban (Xarelto) 20 Mg Tablet, 20 MG PO DAILY, (Reported) with food Ropinirole HCl (Ropinirole HCl) 0.25 Mg Tab, 0.25 MG PO BID, (Reported) Rosuvastatin Calcium (Crestor) 20 Mg Tab, 20 MG PO QHS, (Reported) Senna (Senna Lax) 8.6 Mg Tablet, 2 TAB PO QHS, (Reported) Sertraline Hcl (Zoloft) 100 Mg Tab, 50 MG PO QHS, (Reported) Sitagliptin (Januvia) 50 Mg Tablet, 50 MG PO DAILY, (Reported) Scheduled PRN Oxycodone/Acetaminophen (Oxycodone-Acetaminophen 5-325) 1 Each Tablet, 1 TAB PO Q4HP PRN for MODERATE PAIN (PS 5-7) Allergies Coded Allergies: Penicillins (Verified Allergy, Intermediate, mouth swelling, 03/11/20) Past Medical History Medical History Non healing left urrutia medially due to venous stasis Morbid obesity Chronic atrial fibrillation PAD s/p right above knee amputation amputation after failed angioplasties and bypass. 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 S/p partial nephrectomy Lung nodule stable since 2012. Gout GERD depression Constipation Diverticulosis RLS Surgical History Bilateral lower extremity angioplasties RIGHT FEMORAL TIBIAL ARTERY BYPASS 08/2016 Left CAROTID ENDARTERECTOMY Right varicose vein stripping. Right AKA> Family History Significant Family History: Diabetes (sibling), Heart disease (father) Social History * Smoker: former Smoker Alcohol: rarely Drugs: denies A-FIB/CHADSVASC A-FIB History Current/History of A-Fib/PAF?: Yes Current PO Anticoag Therapy: Yes Review of Systems Constitutional: Denies: Chills, Fever Eyes: Denies: Pain, Vision change ENT: Denies: Head Aches, Ear Pain, Dysphagia Pulmonary: Denies: Dyspnea, Cough Cardiovascular: Denies: Chest Pain, Palpitations, Orthopnea, Paroxysmal Noc. Dyspnea, Lt Headedness Gastrointestinal: Denies: Nausea, Vomiting, Abdominal Pain, Diarrhea Hematologic: Denies: Bruising, Bleeding Excessively Physical Examination General Exam: Positive: Cooperative, No Acute Distress Eye Exam: Positive: PERRLA, Conjunctiva & lids normal ENT Exam: Positive: Atraumatic, Mucous membr. moist/pink, Pharynx Normal Neck Exam: Positive: Supple; Negative: JVD, thyromegaly Chest Exam: Positive: Clear to auscultation, Normal air movement Heart Exam: Positive: Rate Normal, Irregular Rhythm, Normal S1, Normal S2; Negative: Gallops, Murmurs, Rubs, Other Telemetry: Positive: Atrial fibrillation Abdomen Exam: Positive: Normal bowel sounds, Soft, Other (obese); Negative: Tenderness Extremity Exam: Positive: Edema (2 + edema on the urrutia, shinny skin with erythematous patches), Other (@ surgical insicions one on medial left thing and o1 in groin. Toes appear pale and cold. 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 She underwent Left common femoral endarterectomy with xenosure patch angioplasty, Left femoral to above-knee popliteal artery bypass with ringed PTFE. Vascular surgery for Left leg for PAD with non healing ulcer s/p Left common femoral endarterectomy with xenosure patch angioplasty, Left femoral to above-knee popliteal artery bypass with ringed PTFE. activity , pain meds as per Dr Echeverira. Can restart ASA and xarelto from Am. Chronic Afib rate controlled with metoprolol bid continue xarelto from tomorrow DM with peripheral neuropathy Levemir lower dose, lispro sliding scale and januvia, gabapentin will hold metformin FS Ac and HS. Hypertension metoprolol HLD statin Gout allopurinol GERD PPI H/O CVA with right hemiparesis and aphasia. continue ASA, stain, RLS Ropinirole Iron def, vit d def on suppleents. Glaucoma continue home eye drops. Morbid obesity complicating care. Plan / VTE VTE Prophylaxis Ordered?: Yes VICENTE STEPHENS MD Mar 25, 2020 17:56
[2020-03-26] MEDS: PERCOCET 5MG/325MG TAB PO PRN ×2 (00:46→14:42)
[2020-03-26] MEDS: LATANOPROST 0.005% OPHTH SOLN 2.5 ML OU SCH ×2 (00:46→21:00)
[2020-03-26] MEDS: rOPINIRole 0.25 MG TAB(REQUIP) PO SCH ×3 (00:46→21:14)
[2020-03-26 05:23] LABS: BASO # 0.1 10^3/uL (0.0-0.2); BASO % 0.5 % (0.0-1.0); EOS % 0.3 % (0.0-3.0); HEMATOCRIT 33.6 % (36.0-47.0); HEMOGLOBIN 10.1 g/dl (12.0-15.5); LYMPH # 1.5 10^3/uL (1.5-5.0); LYMPH % 15.5 % (24.0-44.0); MEAN CORPUSCULAR HEMOGLOBIN 27.2 pg (27.0-33.0); MEAN CORPUSCULAR HGB CONC 30.1 g/dl (32.0-36.5); MEAN CORPUSCULAR VOLUME 90.6 fl (80.0-96.0); MONO # 0.7 10^3/uL (0.0-0.8); MONO % 7.5 % (0.0-5.0); NEUTROPHILS # 7.1 10^3/uL (1.5-8.5); NEUTROPHILS % 75.7 % (36.0-66.0); PLATELET COUNT, AUTOMATED 255 10^3/uL (150-450); RED BLOOD COUNT 3.71 10^6/uL (4.00-5.40); WHITE BLOOD COUNT 9.4 10^3/uL (4.0-10.0)
[2020-03-26 05:50] LABS: CALCIUM LEVEL 7.4 MG/DL (8.8-10.2); CREATININE FOR GFR 1.28 MG/DL (0.55-1.30); GLOMERULAR FILTRATION RATE 44.1 (>45); MAGNESIUM LEVEL 1.7 MG/DL (1.8-2.4); POTASSIUM SERUM 4.9 MEQ/L (3.5-5.1)
[2020-03-26] MEDS ORDERED: MAG SULF 1GM/100ML (MAG RUN) 1 GM in IV 1 EA IV ONE (08:00)
[2020-03-26] MEDS: SITagliptin 50 MG TAB (JANUVIA) PO SCH (08:36)
[2020-03-26] MEDS: VITAMIN D 1,000 INTERNATIONAL UNITS TABLET PO SCH (08:36)
[2020-03-26] MEDS: DOCUSATE SODIUM 100MG CAPSULE PO SCH ×2 (08:36→21:14)
[2020-03-26] MEDS: HumaLOG INSULIN (NovoLOG) PER UNIT SC SCH ×4 (08:36→21:00)
[2020-03-26] MEDS: ASPIRIN 81 MG CHEW TABLET PO SCH (08:36)
[2020-03-26] MEDS: OMEPRAZOLE 20 MG CAP PO SCH (08:36)
[2020-03-26] MEDS: allopurinoL 100 MG TAB PO SCH (08:37)
[2020-03-26] MEDS: METOPROLOL TART 25 MG TABLET PO SCH ×2 (08:37→21:15)
[2020-03-26] MEDS: FERROUS SULFATE 325MG TAB PO SCH (08:37)
[2020-03-26] MEDS: LEVEMIR (INSULIN DETEMIR) 1 UNITS/0.01ML SC SCH (08:37)
[2020-03-26] MEDS ORDERED: LEVEMIR (INSULIN DETEMIR) 1 UNITS/0.01ML SC SCH (09:00)
--- NOTE | 2020-03-26 10:04 | IPNPDOC ---
Date Seen The patient was seen on 03/26/20. Progress Note SUBJECTIVE: c/o discomfort but just received pain meds. slept well overnight. no other c/o. OBJECTIVE PHYSICAL EXAMINATION: VITAL SIGNS: Please see below. GENERAL: aaox 3 no distress HEENT: no jvd moist mm no carotid bruits CARDIOVASCULAR: irregularly irregular not tachycardic RESPIRATORY: AEBE CTAB ABDOMINAL:obese nt nd +BS x 4 quadrants EXTREMITIES:right AKA, left thigh dressing dry, no erythema , tenderness or induration. no edema.warm dry pink skin color. dp + by doppler. cooler foot. LABORATORY DATA, IMAGING STUDIES, MICROBIOLOGY: Please see below. PROCEDURES: DATE OF PROCEDURE: 03/25/20 PREPROCEDURE DIAGNOSES: Atherosclerosis of the [place] arteries with nonhealing ulcers left lower pretibial leg POSTPROCEDURE DIAGNOSES: Same PROCEDURE: 1. Left common femoral endarterectomy with xenosure patch angioplasty 2. 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 peripheral arterial disease with nonhealing ulcer in left LE -s/p Left common femoral endarterectomy with xenosure patch angioplasty, Left femoral to above-knee popliteal artery bypass with ringed PTFE on 03/25/20. -pain meds, postop mgt, perioperative abx, dvt prophylaxis, and activity per vascular surgery. -ARU screen today. Chronic Afib -rate controlled -resumed on home dose of metoprolol -on oral AC DM with peripheral neuropathy -consistent carbs diet,fingersticks qac hs with [facility] protocol lispro for coverage Hypertension -controlled on metoprolol HLD -on statin Gout allopurinol GERD PPI H/O CVA with right hemiparesis and aphasia. -on asa, statin,oral ac RLS Ropinirole Iron def, vit d def on suppleents. Glaucoma continue home eye drops. Morbid obesity complicating care. bmi 43.4 disposition: PT/ARU screen. VS, I&O, 24H, Fishbone Vital Signs/I&O Vital Signs Date Time Temp Pulse Resp B/P (MAP) Pulse Ox O2 Delivery O2 Flow Rate FiO2 03/26/20 00:46 16 03/26/20 00:00 98.8 97 144/67 (92) 97 Nasal Cannula 1.0 I&O- Last 24 Hours up to 6 AM 03/26/20 06:00 Intake Total 200 ml Output Total 550 ml Balance -350 ml Laboratory Data 24H LABS Laboratory Tests 2 03/25/20 09:34: Bedside Glucose (Misc Panel) 160H 03/25/20 16:06: Bedside Glucose (Misc Panel) 155H 03/25/20 20:05: Bedside Glucose (Misc Panel) 197H 03/26/20 04:46: Immature Granulocyte % (Auto) 0.5, Neutrophils (%) (Auto) 75.7H, Lymphocytes (%) (Auto) 15.5L, Monocytes (%) (Auto) 7.5H, Eosinophils (%) (Auto) 0.3, Basophils (%) (Auto) 0.5, Neutrophils # (Auto) 7.1, Lymphocytes # (Auto) 1.5, Monocytes # (Auto) 0.7, Eosinophils # (Auto) 0.0, Basophils # (Auto) 0.1, Nucleated Red Blood Cells % (auto) 0.0, Anion Gap 10, Glomerular Filtration Rate 44.1L, Calcium Level 7.4L, Magnesium Level 1.7L CBC/BMP Laboratory Tests 03/26/20 04:46 ROMERO SANDOVAL MD Mar 26, 2020 07:20
[2020-03-26] MEDS: ACETAMINOPHEN TAB 650MG DOSE (2X325MG) PO PRN (15:40)
[2020-03-26] MEDS: RIVAROXABAN 20 MG TAB (XARELTO) PO SCH (17:53)
--- NOTE | 2020-03-26 18:20 | REP ---
INDICATION: postop fever 100.6 COMPARISON: 02/28/2017 TECHNIQUE: Portable AP view of the chest FINDINGS: The mediastinum and cardiac silhouette are stable and within normal limits for portable technique. The lung diez are clear without acute consolidation, effusion, or pneumothorax. Skeletal structures are intact. IMPRESSION: No acute cardiopulmonary process appreciated. <Electronically signed by Cl Dhillon > 03/26/20 [id number]
[2020-03-26] MEDS: SENNA 8.6 MG TAB (SENOKOT) PO SCH (21:14)
[2020-03-26] MEDS: ROSUVASTATIN 10 MG TAB (CRESTOR) PO SCH (21:15)
[2020-03-26] MEDS: SERTRALINE HCL 50 MG TAB PO SCH (21:15)
[2020-03-27] MEDS: PERCOCET 5MG/325MG TAB PO PRN ×4 (02:02→20:54)
[2020-03-27 06:00] VITALS: BP 162/82
[2020-03-27 06:01] LABS: BASO % 0.3 % (0.0-1.0); EOS # 0.1 10^3/uL (0.0-0.5); EOS % 0.4 % (0.0-3.0); HEMATOCRIT 33.5 % (36.0-47.0); HEMOGLOBIN 9.8 g/dl (12.0-15.5); LYMPH # 1.3 10^3/uL (1.5-5.0); LYMPH % 8.8 % (24.0-44.0); MEAN CORPUSCULAR HEMOGLOBIN 26.3 pg (27.0-33.0); MEAN CORPUSCULAR HGB CONC 29.3 g/dl (32.0-36.5); MEAN CORPUSCULAR VOLUME 89.8 fl (80.0-96.0); MONO # 1.3 10^3/uL (0.0-0.8); MONO % 9.1 % (0.0-5.0); NEUTROPHILS # 11.5 10^3/uL (1.5-8.5); NEUTROPHILS % 80.8 % (36.0-66.0); PLATELET COUNT, AUTOMATED 270 10^3/uL (150-450); RED BLOOD COUNT 3.73 10^6/uL (4.00-5.40); WHITE BLOOD COUNT 14.2 10^3/uL (4.0-10.0)
[2020-03-27 06:25] LABS: CALCIUM LEVEL 7.5 MG/DL (8.8-10.2); CREATININE FOR GFR 1.4 MG/DL (0.55-1.30); GLOMERULAR FILTRATION RATE 39.8 (>45); MAGNESIUM LEVEL 2.1 MG/DL (1.8-2.4); POTASSIUM SERUM 4.7 MEQ/L (3.5-5.1)
[2020-03-27] MEDS: HumaLOG INSULIN (NovoLOG) PER UNIT SC SCH ×4 (08:14→20:46)
[2020-03-27] MEDS: rOPINIRole 0.25 MG TAB(REQUIP) PO SCH ×2 (08:15→20:52)
[2020-03-27] MEDS: FERROUS SULFATE 325MG TAB PO SCH (08:15)
[2020-03-27] MEDS: LEVEMIR (INSULIN DETEMIR) 1 UNITS/0.01ML SC SCH (08:15)
[2020-03-27] MEDS: OMEPRAZOLE 20 MG CAP PO SCH (08:15)
[2020-03-27] MEDS: ASPIRIN 81 MG CHEW TABLET PO SCH (08:15)
[2020-03-27] MEDS: VITAMIN D 1,000 INTERNATIONAL UNITS TABLET PO SCH (08:15)
[2020-03-27] MEDS: allopurinoL 100 MG TAB PO SCH (08:15)
[2020-03-27] MEDS: DOCUSATE SODIUM 100MG CAPSULE PO SCH ×2 (08:15→20:52)
[2020-03-27] MEDS: METOPROLOL TART 25 MG TABLET PO SCH ×2 (08:18→20:52)
[2020-03-27] MEDS: SITagliptin 50 MG TAB (JANUVIA) PO SCH (08:21)
[2020-03-27] MEDS ORDERED: NS 1,000 ML IV ONE (09:30)
--- NOTE | 2020-03-27 10:22 | IPNPDOC ---
Text Note Date of Service The patient was seen on 03/27/20. NOTE Vascular surgery. Dr. Bernardo The patient is a 70-year-old female status post left common femoral endarterectomy and left femoral to above-knee popliteal bypass as per Dr. Bora reardon 03/25/20. The patient is resting in bed currently, she has not been out of bed yet today. She is reporting pain and nursing is bringing her some pain medication. Afebrile this morning. Tmax 100.61/08/09. The left foot is warm to touch, brisk capillary refill. [place] are intact over lower left thigh wound. No drainage is noted on the dressing. [place] are intact. The area is thoroughly cleaned and dry dressing is reapplied. There is scant dried blood noted on the left groin incision dressing, carolyn are intact. The area is thoroughly cleaned, dry dressing is reapplied. The patient remains on Xarelto, aspirin, statin. Continue to encourage protein intake for healing. PT/OT, possible ARU. Continue to monitor. VS,Fishbone, I+O VS, Fishbone, I+O Laboratory Tests 03/27/20 05:34 Vital Signs Date Time Temp Pulse Resp B/P (MAP) Pulse Ox O2 Delivery O2 Flow Rate FiO2 03/27/20 09:15 16 03/27/20 08:18 113 157/74 03/27/20 06:00 98.0 96 Nasal Cannula 2.0 I&O- Last 24 Hours up to 6 AM 03/27/20 06:00 Intake Total 960 ml Output Total 275 ml Balance 685 ml Renetta Pantoja Mar 27, 2020 10:22
--- NOTE | 2020-03-27 10:28 | IPNPDOC ---
Date Seen The patient was seen on 03/26/20. Progress Note This note is for 03/26/2020. Patient was seen and examined postoperative day one status post left femoral endarterectomy and left femoral to above-knee popliteal bypass with ringed PTFE graft. She is doing well. She is having some pain from her incisions, which is expected and should improve over the next few days. The patient has difficulty with communication, but seems to be doing well so far. On exam, her left lower extremity perfusion is intact, and there is good flow through the graft and into the profunda in the tibial vessels. Her incision was cleaned thoroughly and had minimal drainage on her dressings postop. We redressed with gauze and paper tape. Foam dressing was placed on the pretibial ulcer. The patient tolerated this well. We will continue with supportive care. Her incisions are very tenuous, due to morbid obesity, extensive friable adipose tissue and fascia, but we are hopeful that we will be able to successfully heal both incisions. I've encouraged the nurses to keep intra-dry or pillowcases in her skin folds to minimize moisture. We appreciate the hospitalist excellent care of this patient. We appreciate the opportunity to participate in the care of this patient. VS, I&O, 24H, Fishbone Vital Signs/I&O Vital Signs Date Time Temp Pulse Resp B/P (MAP) Pulse Ox O2 Delivery O2 Flow Rate FiO2 03/27/20 09:15 16 03/27/20 08:18 113 157/74 03/27/20 06:00 98.0 96 Nasal Cannula 2.0 I&O- Last 24 Hours up to 6 AM 03/27/20 06:00 Intake Total 960 ml Output Total 275 ml Balance 685 ml Laboratory Data 24H LABS Laboratory Tests 2 03/26/20 11:44: Bedside Glucose (Misc Panel) 215H 03/26/20 17:26: Erythrocyte Sedimentation Rate 102H, C-Reactive Protein, Quantitative 13.10H, Procalcitonin 0.44 03/26/20 17:47: Bedside Glucose (Misc Panel) 165H 03/26/20 20:00: Bedside Glucose (Misc Panel) 215H 03/27/20 05:34: Immature Granulocyte % (Auto) 0.6, Neutrophils (%) (Auto) 80.8H, Lymphocytes (%) (Auto) 8.8L, Monocytes (%) (Auto) 9.1H, Eosinophils (%) (Auto) 0.4, Basophils (%) (Auto) 0.3, Neutrophils # (Auto) 11.5H, Lymphocytes # (Auto) 1.3L, Monocytes # (Auto) 1.3H, Eosinophils # (Auto) 0.1, Basophils # (Auto) 0.0, Nucleated Red Blood Cells % (auto) 0.0, Anion Gap 8, Glomerular Filtration Rate 39.8L, Calcium Level 7.5L, Magnesium Level 2.1 CBC/BMP Laboratory Tests 03/27/20 05:34 VINEET OLIVO MD Mar 27, 2020 10:28
--- NOTE | 2020-03-27 10:59 | IPNPDOC ---
Date Seen The patient was seen on 03/27/20. Progress Note SUBJECTIVE: c/o pain in left leg 8/10 pain scale , but just took po pain meds, and did not want iv meds. had 100.6 temp yesterday. denies cough sob dysuria chills. despite uncontrolled htn, no c/o cp, sob, changes in vision, or h/a OBJECTIVE PHYSICAL EXAMINATION: VITAL SIGNS: Please see below. GENERAL: aaox 3 no distress no use of resp acc mm HEENT: no jvd moist mm no carotid bruits no stridor CARDIOVASCULAR: irregularly irregular not tachycardic RESPIRATORY: AEBE CTAB no adventitious breath sounds ABDOMINAL:obese nt nd +BS x 4 quadrants no rebound EXTREMITIES:right AKA, left thigh dressing dry, no erythema , tenderness or induration. nonhealing pretibial ulcerno edema.warm dry pink skin color. dp + by doppler. cooler foot. LABORATORY DATA, IMAGING STUDIES, MICROBIOLOGY: Please see below. PROCEDURES: DATE OF PROCEDURE: 03/25/20 PREPROCEDURE DIAGNOSES: Atherosclerosis of the [place] arteries with nonhealing ulcers left lower pretibial leg POSTPROCEDURE DIAGNOSES: Same PROCEDURE: 1. Left common femoral endarterectomy with xenosure patch angioplasty 2. 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 peripheral arterial disease with nonhealing ulcer in left LE -s/p Left common femoral endarterectomy with xenosure patch angioplasty, Left femoral to above-knee popliteal artery bypass with ringed PTFE on 03/25/20. -pain meds, postop mgt, perioperative abx, dvt prophylaxis, and activity per vascular surgery. -transfer back to snf once medically stable Postop Fever 100.6 03/26/20 -ddx: uti, atelectasis -surgical incisions clean w/o erythema or induration -check ua -incentive spirometry -no empiric abx. acute kidney injury -trial of ivfluids -monitor i/o -serial bmp Chronic Afib -rate controlled -resumed on home dose of metoprolol -on oral AC DM with peripheral neuropathy -consistent carbs diet,fingersticks qac hs with [facility] protocol lispro for coverage -uncontrolled -increase levemir to 18units daily Hypertension,uncontrolled -change metoprolol to q6hrs for better control HLD -on statin Gout allopurinol GERD PPI H/O CVA with right hemiparesis and aphasia. -on asa, statin,oral ac RLS Ropinirole Iron def, vit d def on suppleents. Glaucoma continue home eye drops. Morbid obesity complicating care. bmi 43.4 disposition: 1-2 days depending on renal function. VS, I&O, 24H, Fishbone Vital Signs/I&O Vital Signs Date Time Temp Pulse Resp B/P (MAP) Pulse Ox O2 Delivery O2 Flow Rate FiO2 03/27/20 10:39 15 03/27/20 08:18 113 157/74 03/27/20 06:00 98.0 96 Nasal Cannula 2.0 I&O- Last 24 Hours up to 6 AM 03/27/20 06:00 Intake Total 960 ml Output Total 275 ml Balance 685 ml Laboratory Data 24H LABS Laboratory Tests 2 03/26/20 11:44: Bedside Glucose (Misc Panel) 215H 03/26/20 17:26: Erythrocyte Sedimentation Rate 102H, C-Reactive Protein, Quantitative 13.10H, Procalcitonin 0.44 03/26/20 17:47: Bedside Glucose (Misc Panel) 165H 03/26/20 20:00: Bedside Glucose (Misc Panel) 215H 03/27/20 05:34: Immature Granulocyte % (Auto) 0.6, Neutrophils (%) (Auto) 80.8H, Lymphocytes (%) (Auto) 8.8L, Monocytes (%) (Auto) 9.1H, Eosinophils (%) (Auto) 0.4, Basophils (%) (Auto) 0.3, Neutrophils # (Auto) 11.5H, Lymphocytes # (Auto) 1.3L, Monocytes # (Auto) 1.3H, Eosinophils # (Auto) 0.1, Basophils # (Auto) 0.0, Nucleated Red Blood Cells % (auto) 0.0, Anion Gap 8, Glomerular Filtration Rate 39.8L, Calcium Level 7.5L, Magnesium Level 2.1 CBC/BMP Laboratory Tests 03/27/20 05:34 ROMERO SANDOVAL MD Mar 27, 2020 10:59
[2020-03-27] MEDS: NS 1,000 ML IV SCH ×2 (11:56→18:08)
[2020-03-27] MEDS ORDERED: LEVEMIR (INSULIN DETEMIR) 1 UNITS/0.01ML SC ONE (12:00)
[2020-03-27] MEDS: ACETAMINOPHEN TAB 650MG DOSE (2X325MG) PO PRN (12:55)
[2020-03-27 14:00] VITALS: BP 125/64
[2020-03-27 14:39] VITALS: O2SAT 94
[2020-03-27 14:55] LABS: CALCIUM LEVEL 7.4 MG/DL (8.8-10.2); CREATININE FOR GFR 1.36 MG/DL (0.55-1.30); GLOMERULAR FILTRATION RATE 41.2 (>45); POTASSIUM SERUM 4.3 MEQ/L (3.5-5.1)
[2020-03-27] MEDS: RIVAROXABAN 20 MG TAB (XARELTO) PO SCH (18:09)
[2020-03-27] MEDS: SERTRALINE HCL 50 MG TAB PO SCH (20:52)
[2020-03-27] MEDS: ROSUVASTATIN 10 MG TAB (CRESTOR) PO SCH (20:53)
[2020-03-27] MEDS: SENNA 8.6 MG TAB (SENOKOT) PO SCH (20:53)
[2020-03-27] MEDS: LATANOPROST 0.005% OPHTH SOLN 2.5 ML OU SCH (21:00)
[2020-03-27 22:00] VITALS: BP 161/74
[2020-03-28 05:11] VITALS: O2SAT 95
[2020-03-28 06:00] VITALS: BP 158/77
[2020-03-28 06:28] LABS: BASO % 0.3 % (0.0-1.0); EOS # 0.2 10^3/uL (0.0-0.5); EOS % 1.4 % (0.0-3.0); HEMATOCRIT 29.4 % (36.0-47.0); HEMOGLOBIN 8.4 g/dl (12.0-15.5); LYMPH % 9.8 % (24.0-44.0); MEAN CORPUSCULAR HEMOGLOBIN 26.4 pg (27.0-33.0); MEAN CORPUSCULAR HGB CONC 28.6 g/dl (32.0-36.5); MEAN CORPUSCULAR VOLUME 92.5 fl (80.0-96.0); MONO # 1.1 10^3/uL (0.0-0.8); MONO % 9.9 % (0.0-5.0); NEUTROPHILS # 8.3 10^3/uL (1.5-8.5); NEUTROPHILS % 77.8 % (36.0-66.0); PLATELET COUNT, AUTOMATED 201 10^3/uL (150-450); RED BLOOD COUNT 3.18 10^6/uL (4.00-5.40); WHITE BLOOD COUNT 10.6 10^3/uL (4.0-10.0)
[2020-03-28 06:57] LABS: CALCIUM LEVEL 7.5 MG/DL (8.8-10.2); CREATININE FOR GFR 1.21 MG/DL (0.55-1.30); GLOMERULAR FILTRATION RATE 47.1 (>45); MAGNESIUM LEVEL 2.4 MG/DL (1.8-2.4); POTASSIUM SERUM 4.3 MEQ/L (3.5-5.1)
[2020-03-28] MEDS ORDERED: METOPROLOL TART 50 MG TAB PO ONE (07:45)
[2020-03-28] MEDS ORDERED: LEVEMIR (INSULIN DETEMIR) 1 UNITS/0.01ML SC ONE (07:45)
[2020-03-28] MEDS ORDERED: MORPHINE 4 MG/ML 1ML VIAL/SYRINGE (J2270) IV ONE (08:00)
[2020-03-28] MEDS ORDERED: INSUDET SC (08:07)
[2020-03-28] MEDS ORDERED: LOPR1TAB6 PO (08:07)
[2020-03-28] MEDS ORDERED: PERCOCET PO (08:08)
[2020-03-28 08:10] VITALS: BP 144/77
[2020-03-28] MEDS ORDERED: LEVEMIR (INSULIN DETEMIR) 1 UNITS/0.01ML SC SCH (09:00)
[2020-03-28] MEDS: VITAMIN D 1,000 INTERNATIONAL UNITS TABLET PO SCH (09:04)
[2020-03-28] MEDS: SITagliptin 50 MG TAB (JANUVIA) PO SCH (09:04)
[2020-03-28] MEDS: OMEPRAZOLE 20 MG CAP PO SCH (09:04)
[2020-03-28] MEDS: allopurinoL 100 MG TAB PO SCH (09:04)
[2020-03-28] MEDS: DOCUSATE SODIUM 100MG CAPSULE PO SCH (09:04)
[2020-03-28] MEDS: FERROUS SULFATE 325MG TAB PO SCH (09:04)
[2020-03-28] MEDS: rOPINIRole 0.25 MG TAB(REQUIP) PO SCH (09:04)
[2020-03-28] MEDS: ASPIRIN 81 MG CHEW TABLET PO SCH (09:04)
[2020-03-28] MEDS: HumaLOG INSULIN (NovoLOG) PER UNIT SC SCH (09:05)
[2020-03-28 10:27] VITALS: O2SAT 94
--- NOTE | 2020-03-28 10:56 | DS.PDOC ---
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 peripheral arterial disease with nonhealing ulcer in left LE -s/p Left common femoral endarterectomy with xenosure patch angioplasty, Left femoral to above-knee popliteal artery bypass with ringed PTFE on 03/25/20. -pain meds, postop mgt, perioperative abx, dvt prophylaxis, and activity per vascular surgery. Postop Fever 100.6 03/26/20 -ddx: uti, atelectasis -surgical incisions clean w/o erythema or induration -negative workup -incentive spirometry -no empiric abx. acute kidney injury,resolved -s/p trial of ivfluids Chronic Afib -increased metoprolol to 50mg daily -on oral AC DM with peripheral neuropathy -consistent carbs diet,fingersticks qac hs with [facility] protocol lispro for coverage -increased levemir to 20units daily Hypertension,uncontrolled -changed metoprolol to 50 mg daily HLD -on statin Gout allopurinol GERD PPI H/O CVA with right hemiparesis and aphasia. -on asa, statin,oral ac RLS Ropinirole Iron def, vit d def on suppleents. Glaucoma continue home eye drops. Morbid obesity complicating care. bmi 43.4 DISCHARGE PHYSICAL EXAMINATION: VITAL SIGNS: Please see below. GENERAL: aaox 3 no distress no use of resp acc mm HEENT: no jvd moist mm no carotid bruits no stridor CARDIOVASCULAR: irregularly irregular not tachycardic RESPIRATORY: AEBE CTAB no adventitious breath sounds ABDOMINAL:obese nt nd +BS x 4 quadrants no rebound EXTREMITIES:right AKA, left thigh dressing dry, no erythema , tenderness or induration. nonhealing pretibial ulcerno edema.warm dry pink skin color. dp + by doppler. cooler foot. DISCHARGE LABORATORY DATA, IMAGING STUDIES, MICROBIOLOGY: Please see below. PROCEDURES: DATE OF PROCEDURE: 03/25/20 PREPROCEDURE DIAGNOSES: Atherosclerosis of the [place] arteries with nonhealing ulcers left lower pretibial leg POSTPROCEDURE DIAGNOSES: Same PROCEDURE: 1. Left common femoral endarterectomy with xenosure patch angioplasty 2. Left femoral to above-knee popliteal artery bypass with ringed PTFE TIME SPENT ON DISCHARGE: 30MIN Vital Signs/I&Os Vital Signs Date Time Temp Pulse Resp B/P (MAP) Pulse Ox O2 Delivery O2 Flow Rate FiO2 03/28/20 10:27 94 Nasal Cannula 1.0 03/28/20 08:20 16 03/28/20 08:10 96 144/77 03/28/20 06:00 98.8 I&O- Last 24 Hours up to 6 AM 03/28/20 06:00 Intake Total 3840 ml Output Total 800 ml Balance 3040 ml Laboratory Data Labs 24H Laboratory Tests 2 03/27/20 11:39: Bedside Glucose (Misc Panel) 186H 03/27/20 14:24: Anion Gap 5L, Glomerular Filtration Rate 41.2L, Calcium Level 7.4L 03/27/20 16:03: Coronavirus (COVID-19)(PCR) NEGATIVE 03/27/20 16:30: Bedside Glucose (Misc Panel) 212H 03/27/20 18:31: Urine Color YELLOW, Urine Appearance CLOUDYH, Urine pH 5.0, Urine Specific [place] 1.016, Urine Protein NEGATIVE, Urine Glucose (UA) NEGATIVE, Urine Ketones NEGATIVE, Urine Blood NEGATIVE, Urine Nitrite NEGATIVE, Urine Bilirubin NEGATIVE, Urine Urobilinogen 0.2, Urine Leukocyte Esterase 3+H, Urine WBC (Auto) 42H, Urine RBC (Auto) 2, Urine Hyaline Casts (Auto) 1, Urine Bacteria (Auto) 1+H, Urine Squamous Epithelial Cells 0, Urine Amorphous Sediment SMALLH, Urine Sperm (Auto) 03/27/20 20:28: Bedside Glucose (Misc Panel) 194H 03/28/20 06:15: Immature Granulocyte % (Auto) 0.8, Neutrophils (%) (Auto) 77.8H, Lymphocytes (%) (Auto) 9.8L, Monocytes (%) (Auto) 9.9H, Eosinophils (%) (Auto) 1.4, Basophils (%) (Auto) 0.3, Neutrophils # (Auto) 8.3, Lymphocytes # (Auto) 1.0L, Monocytes # (Auto) 1.1H, Eosinophils # (Auto) 0.2, Basophils # (Auto) 0.0, Nucleated Red Blood Cells % (auto) 0.0, Anion Gap 5L, Glomerular Filtration Rate 47.1, Calcium Level 7.5L, Magnesium Level 2.4 CBC/BMP Laboratory Tests 03/27/20 14:24 03/28/20 06:15 FSBS Laboratory Tests Test 03/27/20 11:39 03/27/20 16:30 03/27/20 20:28 Range/Units Bedside Glucose (Misc Panel) 186 212 194 80-115 MG/DL Microbiology Microbiology 03/27/20 Urine Culture, Received Pending Discharge Medications Scheduled Acetaminophen (Mapap) 500 Mg Tablet, 1,000 MG PO QHS, (Reported) Allopurinol (Allopurinol) 100 Mg Tablet, 100 MG PO DAILY, (Reported) Aspirin (Aspirin) 81 Mg Tab.chew, 81 MG PO DAILY, (Reported) Cholecalciferol (Vitamin D3) (Vitamin D3) 1,000 Unit Tablet, 1,000 UNITS PO DAILY, (Reported) Ferrous Sulfate (Iron) 325 Mg Tablet, 325 MG PO DAILY, (Reported) Furosemide (Furosemide) 40 Mg Tab, DAILY, (Reported) Icosapent Ethyl (Vascepa) 1 Gm Capsule, 2 GM PO BID, (Reported) Insulin Detemir (Levemir) 100 Unit/1 Ml Vial, 20 UNITS SC DAILY Latanoprost (Xalatan) 0.005% 2.5ML Drops, 1 DROP OU QPM, (Reported) Metformin HCl (Metformin HCl) 500 Mg Tablet, 500 MG PO BID, (Reported) Metoprolol Tartrate (Lopressor) 50 Mg Tablet, 50 MG PO DAILY Miconazole Nitrate (Anti-Fungal Powder) 71 Gm Powder, 2 % EX BID, (Reported) Omeprazole (Omeprazole) 20 Mg Capsule.dr, 20 MG PO DAILY, (Reported) Rivaroxaban (Xarelto) 20 Mg Tablet, 20 MG PO DAILY, (Reported) with food Ropinirole HCl (Ropinirole HCl) 0.25 Mg Tab, 0.25 MG PO BID, (Reported) Rosuvastatin Calcium (Crestor) 20 Mg Tab, 20 MG PO QHS, (Reported) Senna (Senna Lax) 8.6 Mg Tablet, 2 TAB PO QHS, (Reported) Sertraline Hcl (Zoloft) 100 Mg Tab, 50 MG PO QHS, (Reported) Sitagliptin (Januvia) 50 Mg Tablet, 50 MG PO DAILY, (Reported) Scheduled PRN Oxycodone/Acetaminophen (Oxycodone-Acetaminophen 5-325) 1 Each Tablet, 1 TAB PO Q4HP PRN for MODERATE PAIN (PS 5-7) Allergies Coded Allergies: Penicillins (Verified Allergy, Intermediate, mouth swelling, 03/11/20) ROMERO SANDOVAL MD Mar 28, 2020 10:56
--- NOTE | 2020-03-28 12:02 | IPNPDOC ---
Date Seen The patient was seen on 03/28/20. Progress Note Patient seen and examined postoperative day 3 status post left femoral endarterectomy and left femoral to above-knee popliteal bypass with PTFE graft. She is doing a little better today. Still sensitive to touch and having pain at her incisions, but overall doing well. Both incisions were cleaned and dried. Dry gauze and paper tape were placed over the incisions. The patient tolerated this well. She has good flow through the graft on Doppler, and good perfusion of the foot. We also change the dressing on her pretibial ulcer which looks much better. I think the extra blood flow is helping that to heal. She has small skin tears on her leg that are covered with Tegaderms and seemed to be stable and healing. Her skin and tissue are very fragile. It will be important for careful wound care and keeping her incisions clean and dry. She will need inner dry or pillowcases in the skin folds to prevent moisture, especially at the groin incision. However, both incisions are high risk for trouble healing due to morbid obesity, friable fascia and adipose tissue, for protein nutrition, and diabetes. We will continue to watch closely. Our plan is for her carolyn out in 2 weeks. We appreciate the opportunity to reduce pain in the care of this patient. VS, I&O, 24H, Fishbone Vital Signs/I&O Vital Signs Date Time Temp Pulse Resp B/P (MAP) Pulse Ox O2 Delivery O2 Flow Rate FiO2 03/28/20 10:27 94 Nasal Cannula 1.0 03/28/20 08:20 16 03/28/20 08:10 96 144/77 03/28/20 06:00 98.8 I&O- Last 24 Hours up to 6 AM 03/28/20 06:00 Intake Total 3840 ml Output Total 800 ml Balance 3040 ml Laboratory Data 24H LABS Laboratory Tests 2 03/27/20 14:24: Anion Gap 5L, Glomerular Filtration Rate 41.2L, Calcium Level 7.4L 03/27/20 16:03: Coronavirus (COVID-19)(PCR) NEGATIVE 03/27/20 16:30: Bedside Glucose (Misc Panel) 212H 03/27/20 18:31: Urine Color YELLOW, Urine Appearance CLOUDYH, Urine pH 5.0, Urine Specific [place] 1.016, Urine Protein NEGATIVE, Urine Glucose (UA) NEGATIVE, Urine Ketones NEGATIVE, Urine Blood NEGATIVE, Urine Nitrite NEGATIVE, Urine Bilirubin NEGATIVE, Urine Urobilinogen 0.2, Urine Leukocyte Esterase 3+H, Urine WBC (Auto) 42H, Urine RBC (Auto) 2, Urine Hyaline Casts (Auto) 1, Urine Bacteria (Auto) 1+H, Urine Squamous Epithelial Cells 0, Urine Amorphous Sediment SMALLH, Urine Sperm (Auto) 03/27/20 20:28: Bedside Glucose (Misc Panel) 194H 03/28/20 06:15: Immature Granulocyte % (Auto) 0.8, Neutrophils (%) (Auto) 77.8H, Lymphocytes (%) (Auto) 9.8L, Monocytes (%) (Auto) 9.9H, Eosinophils (%) (Auto) 1.4, Basophils (%) (Auto) 0.3, Neutrophils # (Auto) 8.3, Lymphocytes # (Auto) 1.0L, Monocytes # (Auto) 1.1H, Eosinophils # (Auto) 0.2, Basophils # (Auto) 0.0, Nucleated Red Blood Cells % (auto) 0.0, Anion Gap 5L, Glomerular Filtration Rate 47.1, Calcium Level 7.5L, Magnesium Level 2.4 CBC/BMP Laboratory Tests 03/27/20 14:24 03/28/20 06:15 Microbiology Microbiology 03/27/20 Urine Culture, Received Pending VINEET OLIVO MD Mar 28, 2020 12:02
[2020-03-29] MEDS ORDERED: LEVEMIR (INSULIN DETEMIR) 1 UNITS/0.01ML SC SCH (09:00)
[2020-03-29] MEDS ORDERED: METOPROLOL TART 50 MG TAB PO SCH (09:00)
--- NOTE | 2020-04-02 12:27 | CR ---
PRE-OPERATIVE CLEARANCE DATE: 03/07/2020 HISTORY AND PLAN: This is a pre-operative clearance for an endarterectomy. She is having a left femoral endarterectomy with left femoral to above knee bypass with Dr. Bernardo on 03/25/2020. Thank you for asking me to see her for her pre-operative clearance. Patient was seen also by [facility], indicated possibly for a stress test due to the procedure that was being performed. Patient was unable to have the stress test performed due to her inability to get up on the table. It was recommended that she have a different test performed which is a cardiac PET perfusion imaging, but because of alf status it was not optional for this patient so she was cleared by cardiology despite not having a stress test for the femoral endarterectomy with femoral to above knee arterial bypass without cardiac PET or SPECT perfusion imaging because this patient has limb threatening ischemia which takes priority of this. We were unable to assess whether patient has any cardiac symptoms because she is ambulatory, but only with her prosthesis and does very little ambulation so she does not exercise at 4 METS. She has a CHADS-VASc score of 7 due to her hypertension, age greater 70, diabetes and ASCVD. She is also female. Patient is on Xarelto which will need to be held 3 days prior to her surgery. Other medications will be discussed below as to what needs to be held. She had an echo performed 11/2012 which showed some mild mitral calcification, mild mitral regurgitation, but showed normal left ventricular size, wall motion and systolic function. She is a 70-year-old female currently alf status who has multiple medical problems. She is going to be undergoing a left femoral endarterectomy with left femoral to above knee bypass; this is on the left side. She was seen by a payer specialist regularly for wound care on the left lower leg. This will be done by Dr. Bernardo. PAST MEDICAL HISTORY: 1. Diabetes mellitus. 2. History of stroke in 2005. 3. Again she has severe peripheral vascular disease with below-knee amputation. 4. Carotid ASCVD. 5. Status post left CEA August,. 6. Morbid obesity. 7. Mixed hyperlipidemia. 8. Aortic valve sclerosis. PAST SURGICAL HISTORY: 1. No recent surgery other than status post left CEA. 2. She also has a history of carotid endarterectomy in 08/[address] Vlad and AKA on the right. 3. Angioplasty of left femoral artery. SOCIAL HISTORY: Father is at age 79. Mother is at age 72. Sister had cancer at age 70. MEDICATIONS: Include: * Allopurinol 100 mg daily. * Xarelto 20 mg daily. * Levemir 18 units a day. * Latanoprost. * Januvia 50 mg a day. * Sertraline 50 mg a day. * Metformin 500 mg twice a day. * Ropinirole 0.25 mg twice a day. * Antifungal cream as directed. * Metoprolol 50 mg twice a day. * Senna 8.6 mg, 1-2 every day for constipation. * Crestor 20 mg a day. * Aspirin 81 mg a day. * Furosemide 40 mg daily. * Vitamin D 1000 units daily. * Iron 325 daily. * Omeprazole 20 mg a day. * Milk of Magnesia as needed for constipation. ALLERGIES: PENICILLIN causes rash and shortness of breath. REVIEW OF SYSTEMS: Patient has not had any fever or weight loss. She does have glaucoma and visual disturbance from that. ENT: Denies any increased hearing loss from her baseline. Respiratory: Negative for shortness of breath unless she does moderate activity. Denies any chest pain, cough, hemoptysis or sputum production. GI: Denies any nausea or vomiting. Has chronic constipation. Genitourinary: Does have some urinary incontinence at times and she has to get up at least twice to empty her bladder. Musculoskeletal: Denies any leg cramps, myalgias or pain. Breasts: . Neuro: Denies any numbness or tingling or vertigo symptoms. Endocrine: Negative for hair loss, hirsutism. She does have a history of diabetes. PHYSICAL EXAMINATION: Exam reveals a 70-year-old female that does not appear to be in any acute distress. Head: Normocephalic, atraumatic. She does not have any dysmorphic features present. Sclerae is nonicteric, extraocular muscle movements are intact. Throat is without any erythema or exudate, uvula elevates midline. There is no deviation of the tongue noted. Neck: Without any jugular venous distention. She has left carotid endarterectomy scar present. Thyroid is normal without any palpable nodules. No JVD. Heart: S1 and S2 without any murmurs, rubs or gallops or heaves or thrills. She has an irregularly irregular rate which is controlled. Lungs: Sounds are clear to auscultation without any wheezes, rhonchi or rales, no dullness to percussion. IMAGING: EKG was done on the patient for pre-op clearance and showed atrial fibrillation with a controlled ventricular rate. IMPRESSION AND PLAN: Patient has severe peripheral vascular disease, will be undergoing the left femoral endarterectomy with the left femoral artery bypass. Patient is medically optimized as much as possible without the stress test performed which will not be covered by alf status with the proposed cardiac PET perfusion that will not be covered. Patient has an intermediate risk. The Xarelto needs to be held 3 days prior to surgery due to her atrial fibrillation. She also has the diabetes mellitus and metformin will need to be held the day before and the day of surgery. Also Januvia will need to be held the day of surgery; Levemir will be given 9 units the evening before surgery rather that morning. Lasix will need to be held also the day of surgery. She has chronic diastolic heart failure with preserved systolic function. Also obesity due to excess calories, mixed hyperlipidemia; she will continue on her lipid medication, that will not be held for surgery. She was prescribed Vascepa 2 grams twice a day with meals because she met the REDUCE-IT FDA criteria for Vascepa. However, that will not be started until after her surgery. The rest of her medications will be given as ordered, none of the other medications will be held. LUIS MIGUEL
== END 2020-03-28 11:53 | DRG 253 ==
LOC: M OR 08:21 → M PCU 19:05 → M MSPAV 03-26 21:24
PROVIDERS: ADMIT Surgery Vascular Surgery; ATTEND General Practice
PROC: 04CL0ZZ Extirpation of Matter from Left Femoral Artery, Open Approach (ICD-10-PCS; 2020-03-25)
PROC: 04CK0ZZ Extirpation of Matter from Right Femoral Artery, Open Approach (ICD-10-PCS; 2020-03-25)
PROC: 041K0JJ Bypass Right Femoral Artery to Left Femoral Artery with Synthetic Substitute, Open Approach (ICD-10-PCS; principal; 2020-03-25 10:00)
DX: I70.248 Atherosclerosis of native arteries of left leg with ulceration of other part of lower leg (principal); I48.20 Chronic atrial fibrillation, unspecified; I69.351 Hemiplegia and hemiparesis following cerebral infarction affecting right dominant side; Z68.41 Body mass index [BMI] 40.0-44.9, adult; N39.0 Urinary tract infection, site not specified; J98.11 Atelectasis; E66.01 Morbid (severe) obesity due to excess calories; I10 Essential (primary) hypertension; F41.9 Anxiety disorder, unspecified; F32.9 Major depressive disorder, single episode, unspecified; K21.9 Gastro-esophageal reflux disease without esophagitis; Z89.611 Acquired absence of right leg above knee; Z87.891 Personal history of nicotine dependence; Z79.899 Other long term (current) drug therapy; Z79.82 Long term (current) use of aspirin; Z88.0 Allergy status to penicillin; M10.9 Gout, unspecified; E55.9 Vitamin D deficiency, unspecified; D50.9 Iron deficiency anemia, unspecified; H40.9 Unspecified glaucoma

== ENCOUNTER → 2020-03-25 | Outpatient (REF) | payer MEDICAID, MEDICARE ==
[~2020-03-25] MED LIST changes: +ACET1TAB55 PO; +BISA10SU4 PR; -CVS2POW3 EX; +CVS2POW3 TOP; +DOXY-350 PO; +DOXY100T2 PO; +ENEMENE PR; +FLAG500T PO; -FURO40TA2; +GLUC1INJ11 IM; -LISI-538; -LISI-538 PO; +LISI20TA33; +LISI20TA33 PO; +METO50TA7 PO; +MOM30SS2 PO; +PERC5TAB12 PO; +SERT50TA29 PO
== END ==
PROVIDERS: ATTEND Internal Medicine
DX: Z20.822 Contact with and (suspected) exposure to COVID-19 (principal)

== ENCOUNTER → 2020-03-29 | Outpatient (REF) | payer MEDICARE, MEDICAID ==
[~2020-03-29] MED LIST changes: +ACET1TAB55 PO; +BISA10SU4 PR; +DOXY-350 PO; +DOXY100T2 PO; +ENEMENE PR; +FLAG500T PO; +GLUC1INJ11 IM; -LIDOCAINE 1% MDV 20ML VIAL SQ PRN; +LOPR1TAB6 PO; -LR 1,000 ML IV ONE; +METO50TA7 PO; +MOM30SS2 PO; +PERC5TAB12 PO; +PERCOCET PO; +SERT50TA29 PO; -VANCOMYCIN HCL 1,000 MG, VIAL MATE ADAPTER 1 EACH in D5W 250 ML IV ONE
== END ==
PROVIDERS: ATTEND Internal Medicine
DX: Z20.822 Contact with and (suspected) exposure to COVID-19 (principal)

== ENCOUNTER 2020-04-02 10:06 | Inpatient (IN) | payer MEDICARE, MEDICAID ==
[~2020-04-02] VITALS: Ht 152.4 cm; Wt 99.5 kg
[~2020-04-02 10:06] MED LIST changes: -ACET1TAB55 PO; -BISA10SU4 PR; -ENEMENE PR; -GLUC1INJ11 IM; -LISI-538; -LISI-538 PO; +LISI20TA33; +LISI20TA33 PO; -METO50TA7 PO; -MOM30SS2 PO; -PERC5TAB12 PO; -SERT50TA29 PO
--- OUTSIDE RECORDS SUMMARY | 2020-04-02 10:19 | CCD ---
Author Author [facility] Organization [facility] Address Unknown Phone Unavailable Care Team Providers Care Family Member Caretaker Name Role Phone Makenzie Partida Unavailable PROBLEMS Type Condition ICD9-CM Code QHN13-BP Code Onset Dates Condition S tatus SNOMED Code Notes Problem Atherosclerosis of [place] of left lower extremity with ulceration of other part of lower leg I70.248 Active 862044604 Problem Non-pressure chronic ulcer o f other part of left lower leg with fat layer exposed L97.822 Active 78758082 Problem Idiopathic chronic venous hy pertension of right lower extremity with 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 Active 824001453 Problem Atherosclerosis of [place] of right lower extremity with ulceration of ankle I70.233 Active [id number] ALLERGIES Allergen (clinical drug ingredient) Drug/Non Drug Allergy do cumented on EMR Reaction Allergy Type Onset Date Status Penicillin (For Allergies Use Only) Unknown Drug Allerg y Active ENCOUNTERS from 1950 to 2020-03-06 Encounter Location Date Provider Diagnosis [facility] [address] [place] [address] Feb Makenzie Partida Atherosclerosis of [place] artery of left lower extremity with ulceration of other part of lower leg I70.248 and Non-pressure chronic ulcer of other part of left lower leg with fat layer exposed L97.822 IMMUNIZATIONS Vaccine Route Administration Date Status Influenza (6mo & up) Fluzone Unknown July 10, 2014 Ref used SOCIAL HISTORY Tobacco Use: Social History Observation Description Date Details (start date - stop date) never smoker Sex Assigned At : Social History Observation Description Sex Assigned At Unknown Tobacco Use: Question Answer Notes Are you a: never smoker REASON FOR REFERRAL No Information VITAL SIGNS Weight 216 lbs Feb, Weight-kg PER PT kg Feb, Height 59.5 in Feb, BMI 42.89 kg/m2 Feb, Heart Rate 80 /min Feb, Respiratory Rate 20 /min Feb, Temperature 96.6 degrees Fahrenheit Feb, Oximetry 98% Feb, Blood pressure systolic 177 mm Hg Feb, Blood pressure diastolic 84 mm Hg Feb, MEDICATIONS Medication SIG (Take, Route, Frequency, Duration) Notes Start Da te End Date Status Levaquin 500 MG 1 tablet Orally Once a day for 10 day(s) 2 Jan, Not-Taking Omeprazole 20 MG 1 capsule 30 minutes before morning meal Orally Once a day for 30 day(s) Active Zoloft 50 MG 1 tablet Orally Once a day Active Vitamin C 500 MG Orally Not-Taki ng Bisacodyl 10 MG 1 suppository as needed Rectal Once a day for 30 day( s) Active Milk of Magnesia 400 MG/5ML 30mL Orally as needed 1 time per day Active Warfarin Sodium 5 MG 1 tablet Orally daily except wednesday Not-Taking Bactrim DS 800-160 1 tablet orally twice a day for 10 days Jan, Not-Taking Levaquin 500 MG 1 tablet Orally Once a day for 10 day(s) 1 Aug, Not-Taking Xarelto 20 MG 1 tablet with food Orally Once a day for 30 day(s) Active Glucagon Emergency 1 MG as directed Injection Active Levaquin 500 MG 1 tablet Orally Once a day for 10 day(s) 1 Feb, Not-Taking Warfarin Sodium 2.5 MG 1 tablet Orally wednesday only Not-Taking Acetaminophen 500 MG 1 capsule Orally before bedtime Active Januvia 50 MG as directed Orally Daily Active Senna S 8.6-50 MG 2 tablet in the evening as needed Orally Once a day Active Valcyclovir-1000 mg TID 500 mg 2 tabs orally three times a day Not-Taking Lisinopril 20 20 mg as directed oral bid Not-Taking Levemir 100 UNIT/ML as directed Subcutaneous 10 unites subcutaneous ly daily Active Ropinirole HCl 0.25 MG 1 tablet 1 to 3 hours before bedtime Orally twice daily Active Baclofen 10 MG 1 tablet with food or milk Orally bid Not-Taking Tylenol 325 MG 2 tablet as needed Orally ev adin 4 hrs for pain/fever. MDD= 3gm/24hrs Active Vitamin D3 25 MCG (1000 UT) 1 capsule Orally Once a day for 30 day(s) Active Tramadol HCl 50 MG 1 tab Orally every 12 hours as needed/MMD#4 Not-Taking Disposable Enema 19-7 gram/118mL per rectum as needed 1 time per day for constipation Active Iron 325 (65 Fe) MG 1 tablet Orally Once a day for 30 day(s) Active Lasix 40 MG 1 tablet Orally Once a day for 30 day(s) Not-Taking Requip Not-Taking Aleve PM 220-25 MG Orally Not-Ta lydia Aspirin 81 MG 1 tablet Orally Once a day Active Metformin 1 tab Oral bid Active Erythromycin 5 MG/GM 1 application Ophthalmic Four times a day Not-Taking Pantoprazole Sodium 40 MG 1 tablet Orally Once a day Not-Taking Furosemide 40 MG 1 tablet Orally Once a day for 30 day(s) Active Miconazole Nitrate 2 % 1 application Externally Twice a day Active Crestor 20 MG 1 tablet Orally Once a day Active Diovan 160 MG 1 tablet Orally Once a day for 30 day(s) Not-Taking Vitamin D 1000 UNIT 1 capsule Orally Once a day Not-Taking Hydrocortisone 1 % 1 application to affected ar ea Externally Twice a day for 7 days Jun, Not-Taking Metoprolol Tartrate 50 MG 1 tablet with food Orally Twice a day Active PROCEDURES from 1950 to 2020-03-06 Procedure Date Ordered Result Body Site LIDOCAINE 4% CREAM TOPICAL 2020-02-29 N/A RESULTS No Results REASON FOR VISIT Left leg wound MEDICAL (GENERAL) HISTORY Type Description Date Medical History CVA Medical History HTN Medical History Hyperlipidemia Medical History R knee fracture Medical History aphasia Surgical History femoral tibial artery bypass 08/2016 Hospitalization History R knee fracture x 2 months Hospitalization History rehab after CVA x 7 months Hospitalization History surgery related 08/2016 Goals Section No Information Health Concerns No Information MEDICAL EQUIPMENT No Information MENTAL STATUS No Information FUNCTIONAL STATUS No Information ASSESSMENTS Encounter Date Diagnosis Assessment Notes Treatment Notes Treatm ent Clinical Notes Feb, Atherosclerosis of [place] of left lower extremity with ulceration of other part of lower leg (ICD-10 - I70.248) hydrogel lot [id number] exp Feb, Non-pressure chronic ulcer o f other part of left lower leg with fat layer exposed (ICD-10 - L97.822) Feb, Other Dressing changes once a week and as needed for drainage. The dressing should follow those documented in the procedure note SANTYL LOT [id number] EXP 02/09 PLAN OF TREATMENT Treatment Notes Assessment Notes Clinical Notes Atherosclerosis of [place] artery of left lower extremity with ulceration of other [place] [id number] 05-11 Appt Details 1 Week Reason: Provider Name:Makenziedayanara Partida, 03-07 10:30:00 AM, [place], [address], Provider Name:Makenziedayanara Partida 03-21 09:30:00 AM, [address] [place], [address], Insurance Providers Payer Name Payer Address Payer Phone Insured Name Patient Relati onship to Insured Coverage Start Date Coverage End Date MEDICAID [employer] [address] [facility] [id number] MUKESH FLETCHER MEDICARE Part A and B [address] [facility] [address] MUKESH FLETCHER self
--- OUTSIDE RECORDS SUMMARY | 2020-04-02 10:19 | CCD ---
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 Active 28476627 Problem Idiopathic chronic venous hy pertension of right lower extremity with 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 Active 491083961 Problem 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 Active 355089210609008 ALLERGIES Allergen (clinical drug ingredient) Drug/Non Drug Allergy do cumented on EMR Reaction Allergy Type Onset Date Status Penicillin (For Allergies Use Only) Unknown Drug Allerg y Active ENCOUNTERS from 1950 to 2020-03-19 Encounter Location Date Provider Diagnosis [facility] W[facility] Care [address] [place] [address] Feb Makenzie Partida Atherosclerosis of quechan artery of left lower extremity with ulceration [...] History Observation Description Sex Assigned At Unknown Alcohol Screening: Question Answer Notes Did you have a drink containing alcohol in the past year? No Points 0 Interpretation Negative Tobacco Use: Question Answer Notes Are you a: never smoker REASON FOR REFERRAL No Information VITAL SIGNS Weight 218.8 lbs Feb, Height 59.5 in Feb, BMI 43.45 kg/m2 Feb, Heart Rate 75 /min Feb, Respiratory Rate 20 /min Feb, Temperature 96.4 degrees Fahrenheit Feb, Oximetry 97 Feb, MEDICATIONS Medication SIG (Take, Route, Frequency, Duration) Notes Start Da te End Date Status Metoprolol Tartrate 50 MG 1 tablet with food Orally Twice a day Active Pantoprazole Sodium 40 MG 1 tablet Orally Once a day Not-Taking Xalatan 0.005 % 1 drop into affected eye in the evening Ophthalm ic Once a day Active Baclofen 10 MG 1 tablet with food or milk Orally bid Not-Taking Senna S 8.6-50 MG 2 tablet in the evening as needed Orally Once a day Active Milk of Magnesia 400 MG/5ML 30mL Orally as needed 1 time per day Active Aleve PM 220-25 MG Orally Not-Ta Miconazole Nitrate 2 % 1 application Externally Twice a day Active Omeprazole 20 MG 1 capsule 30 minutes before morning meal Orally Once a day for 30 day(s) Active Allopurinol 100 MG 1 tablet Orally Once a day for 30 day(s) Active Vitamin C 500 MG Orally Not-Taki ng Crestor 20 MG 1 tablet Orally Once a day Active Acetaminophen 500 MG 1 capsule Orally before bedtime Active Levaquin 500 MG 1 tablet Orally Once a day for 10 day(s) 1 Feb, Not-Taking Vitamin D 1000 UNIT 1 capsule Orally Once a day Not-Taking Ropinirole HCl 0.25 MG 1 tablet 1 to 3 hours before bedtime Orally twice daily Active Iron 325 (65 Fe) MG 1 tablet Orally Once a day for 30 day(s) Active Zoloft 50 MG 1 tablet Orally Once a day Not-Taking Levaquin 500 MG 1 tablet Orally Once a day for 10 day(s) 2 Jan, Not-Taking Levaquin 500 MG 1 tablet Orally Once a day for 10 day(s) 1 Aug, Not-Taking Sertraline HCl 50 MG 1 tablet Orally Once a day for 30 day(s) Active Aspirin 81 MG 1 tablet Orally Once a day Active Bactrim DS 800-160 1 tablet orally twice a day for 10 days Jan, Not-Taking Valcyclovir-1000 mg TID 500 mg 2 tabs orally three times a day Not-Taking Warfarin Sodium 5 MG 1 tablet Orally daily except wednesday Not-Taking Lasix 40 MG 1 tablet Orally Once a day for 30 day(s) Not-Taking Furosemide 40 MG 1 tablet Orally Once a day for 30 day(s) Active Diovan 160 MG 1 tablet Orally Once a day for 30 day(s) Not-Taking Januvia 50 MG as directed Orally Daily Active Vitamin D3 25 MCG (1000 UT) 1 capsule Orally Once a day for 30 day(s) Active Hydrocortisone 1 % 1 application to affected ar ea Externally Twice a day for 7 days Jun, Not-Taking Xarelto 20 MG 1 tablet with food Orally Once a day for 30 day(s) Active Levemir 100 UNIT/ML as directed Subcutaneous 10 unites subcutaneous ly daily Active Metformin 1 tab Oral bid Active Lisinopril 20 20 mg as directed oral bid Not-Taking Tramadol HCl 50 MG 1 tab Orally every 12 hours as needed/MMD#4 Not-Taking Erythromycin 5 MG/GM 1 application Ophthalmic Four times a day Not-Taking Warfarin Sodium 2.5 MG 1 tablet Orally wednesday only Not-Taking Bisacodyl 10 MG 1 suppository as needed Rectal Once a day for 30 day( s) Active Glucagon Emergency 1 MG as directed Injection Active Requip Not-Taking Disposable Enema 19-7 gram/118mL per rectum as needed 1 time per day for constipation Active Tylenol 325 MG 2 tablet as needed Orally ev adin 4 hrs for pain/fever. MDD= 3gm/24hrs Active PROCEDURES from 1950 to 2020-03-19 Procedure Date Ordered Result Body Site LIDOCAINE 4% CREAM TOPICAL 2020-03-07 N/A RESULTS No Results REASON FOR VISIT Left Leg Wound MEDICAL (GENERAL) HISTORY Type Description Date Medical [...] Treatm ent Clinical Notes Feb, Atherosclerosis of [place] of left lower extremity with ulceration of other part of lower leg (ICD-10 - I70.248) hydrogel lot [id number] exp Feb, Non-pressure chronic ulcer o f other part of left lower leg with fat layer exposed (ICD-10 - L97.822) Feb, Other Dressing changes once a week and as needed for drainage. The dressing should follow those documented in the procedure note SANTYL LOT [id number] EXP 02/09 PLAN OF TREATMENT Treatment Notes Assessment Notes Clinical Notes Atherosclerosis of quechan artery of left lower extremity with ulceration of other part of lower leg hydrogel lot [id number] exp 05-11 Next Appt Details 2 Weeks Reason: Provider Name:Makenzie Partida, 03-21 09:30:00 AM, [address] [place], [address], Provider Name:Makenziedayanara Partida, 03-28 10:30:00 AM, [address] [place], [address], Insurance Providers Payer Name Payer Address Payer Phone Insured Name Patient Relati onship to Insured Coverage Start Date Coverage End Date MEDICARE Part A and B [address] [facility] [address] MUKESH FLETCHER MEDICAID [employer] [address] [facility] [address] MUKESH FLETCHER self
--- OUTSIDE RECORDS SUMMARY | 2020-04-02 10:19 | CCD ---
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 Active 33600181 Problem Idiopathic chronic venous hy pertension of right lower extremity with 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 Active 214699687 Problem Atherosclerosis of [place] ar katie of right lower extremity with ulceration of ankle I70.233 Active [id number] ALLERGIES Allergen (clinical drug ingredient) Drug/Non Drug Allergy do cumented on EMR Reaction Allergy Type Onset Date Status Penicillin (For Allergies Use Only) Unknown Drug Allerg y Active ENCOUNTERS from 1950 to 2020-03-25 Encounter Location Date Provider Diagnosis [facility] Wound Care [address] [place] [address] Feb Makenzie Partida Atherosclerosis of [place] artery of left lower extremity with ulceration [...] Information VITAL SIGNS Weight 218.8 lbs Feb, Weight-kg PER CHART kg Feb, Height 59.5 in Feb, BMI 43.45 kg/m2 Feb, Heart Rate 78 /min Feb, Respiratory Rate 19 /min Feb, Temperature 97.5 degrees Fahrenheit Feb, Oximetry 98% Feb, Blood pressure systolic 128 mm Hg Feb, Blood pressure diastolic 64 MANUALLY mm Hg Feb, MEDICATIONS Medication SIG (Take, Route, Frequency, Duration) Notes Start Da te End Date Status Tylenol 325 MG 2 tablet as needed Orally ev adin 4 hrs for pain/fever. MDD= 3gm/24hrs Active Crestor 20 MG 1 tablet Orally Once a day Active Levemir 100 UNIT/ML as directed Subcutaneous 10 unites subcutaneous ly daily Active Aleve PM 220-25 MG Orally Not-Ta lydia Disposable Enema 19-7 gram/118mL per rectum as needed 1 time per day for constipation Active Miconazole Nitrate 2 % 1 application Externally Twice a day Active Xalatan 0.005 % 1 drop into affected eye in the evening Ophthalm ic Once a day Active Vitamin C 500 MG Orally Not-Taki ng Senna S 8.6-50 MG 2 tablet in the evening as needed Orally Once a day Active Januvia 50 MG as directed Orally Daily Active Bactrim DS 800-160 1 tablet orally twice a day for 10 days Jan, Not-Taking Vitamin D3 25 MCG (1000 UT) 1 capsule Orally Once a day for 30 day(s) Active Metoprolol Tartrate 50 MG 1 tablet with food Orally Twice a day Active Sertraline HCl 50 MG 1 tablet Orally Once a day for 30 day(s) Active Ropinirole HCl 0.25 MG 1 tablet 1 to 3 hours before bedtime Orally twice daily Active Valcyclovir-1000 mg TID 500 mg 2 tabs orally three times a day Not-Taking Xarelto 20 MG 1 tablet with food Orally Once a day for 30 day(s) Active Pantoprazole Sodium 40 MG 1 tablet Orally Once a day Not-Taking Vitamin D 1000 UNIT 1 capsule Orally Once a day Not-Taking Requip Not-Taking Vascepa 1 GM 2 capsules with meals Orally Twice a day for 30 day(s) Active Levaquin 500 MG 1 tablet Orally Once a day for 10 day(s) 2 8 Jan, 2017 Not-Taking Hydrocortisone 1 % 1 application to affected ar ea Externally Twice a day for 7 days Jun, Not-Taking Levaquin 500 MG 1 tablet Orally Once a day for 10 day(s) 1 Aug, Not-Taking Zoloft 50 MG 1 tablet Orally Once a day Not-Taking Tramadol HCl 50 MG 1 tab Orally every 12 hours as needed/MMD#4 Not-Taking Erythromycin 5 MG/GM 1 application Ophthalmic Four times a day Not-Taking Allopurinol 100 MG 1 tablet Orally Once a day for 30 day(s) Active Glucagon Emergency 1 MG as directed Injection Active Lisinopril 20 20 mg as directed oral bid Not-Taking Warfarin Sodium 5 MG 1 tablet Orally daily except wednesday Not-Taking Diovan 160 MG 1 tablet Orally Once a day for 30 day(s) Not-Taking Baclofen 10 MG 1 tablet with food or milk Orally bid Not-Taking Acetaminophen 500 MG 1 capsule Orally before bedtime Active Levaquin 500 MG 1 tablet Orally Once a day for 10 day(s) 1 Feb, Not-Taking Warfarin Sodium 2.5 MG 1 tablet Orally wednesday only Not-Taking Bisacodyl 10 MG 1 suppository as needed Rectal Once a day for 30 day( s) Active Lasix 40 MG 1 tablet Orally Once a day for 30 day(s) Not-Taking Iron 325 (65 Fe) MG 1 tablet Orally Once a day for 30 day(s) Active Milk of Magnesia 400 MG/5ML 30mL Orally as needed 1 time per day Active Aspirin 81 MG 1 tablet Orally Once a day Active Metformin 1 tab Oral bid Active Omeprazole 20 MG 1 capsule 30 minutes before morning meal Orally Once a day for 30 day(s) Active Furosemide 40 MG 1 tablet Orally Once a day for 30 day(s) Active PROCEDURES from 1950 to 2020-03-25 Procedure Date Ordered Result Body Site LIDOCAINE 4% CREAM TOPICAL 2020-03-21 N/A RESULTS No Results REASON FOR VISIT [...] Treatm ent Clinical Notes Feb, Atherosclerosis of [place]ro[place] ar katie of left lower extremity with ulceration of other part of lower leg (ICD-10 - I70.248) Feb, Non-pressure chronic ulcer o f other part of left lower leg with fat layer exposed (ICD-10 - L97.822) Feb, Other Dressing changes once a week and as needed for drainage. The dressing should follow those documented in the procedure note HYDROGEL LOT:[id number] EXP:05/14 PLAN OF TREATMENT Next Appt Details 2 Weeks Reason: Provider Name:Makenziedayanara Partida, 04-04 09:30:00 AM, [address] [place], [address], Insurance Providers Payer Name Payer Address Payer Phone Insured Name Patient Relati onship to Insured Coverage Start Date Coverage End Date MEDICAID [employer] [address] [facility] [address] MUKESH FLETCHER self MEDICARE Part A and B [address] [facility] [id number] MUKESH FLETCHER self
--- OUTSIDE RECORDS SUMMARY | 2020-04-02 10:20 | CCD ---
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 Active 71650743 Problem Idiopathic chronic venous hy pertension of right lower extremity with 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 Active 988307171 Problem Atherosclerosis of [place] ar katie of right lower extremity with ulceration of ankle I70.233 Active [id number] ALLERGIES Allergen (clinical drug ingredient) Drug/Non Drug Allergy do cumented on EMR Reaction Allergy Type Onset Date Status Penicillin (For Allergies Use Only) Unknown Drug Allerg y Active ENCOUNTERS from 1950 to 2020-02-22 Encounter Location Date Provider Diagnosis [facility] Wound Care [address] [place] [address] Jan Makenzie Partida Atherosclerosis of [place] artery of left lower extremity with ulceration of other part of lower leg I70.248 ; Non-pressure chronic ulcer of other part of left lower leg with fat layer exposed L97.822 ; Skin tag L91.8 and Immunization not carried out because of patient refusal Z28.21 IMMUNIZATIONS Vaccine Route Administration Date Status Influenza [...] No Information VITAL SIGNS Weight 216 lbs Jan, Weight-kg PER PT kg Jan, Height 59.5 in Jan, BMI 42.89 kg/m2 Jan, Heart Rate 84 /min Jan, Respiratory Rate 19 /min Jan, Temperature 98.3 degrees Fahrenheit Jan, Oximetry 98% Jan, Blood pressure systolic 218 mm Hg Jan, Blood pressure diastolic 91 mm Hg Jan, MEDICATIONS Medication SIG (Take, Route, Frequency, Duration) Notes Start Da te End Date Status Ropinirole HCl 0.25 MG 1 tablet 1 to 3 hours before bedtime Orally twice daily Active Diovan 160 MG 1 tablet Orally Once a day for 30 day(s) Not-Taking Valcyclovir-1000 mg TID 500 mg 2 tabs orally three times a day Not-Taking Levaquin 500 MG 1 tablet Orally Once a day for 10 day(s) 2 Jan, Not-Taking Erythromycin 5 MG/GM 1 application Ophthalmic Four times a day Not-Taking Crestor 20 MG 1 tablet Orally Once a day Active Vitamin D3 25 MCG (1000 UT) 1 capsule Orally Once a day for 30 day(s) Active Lisinopril 20 20 mg as directed oral bid Not-Taking Tramadol HCl 50 MG 1 tab Orally every 12 hours as needed/MMD#4 Not-Taking Requip Not-Taking Lasix 40 MG 1 tablet Orally Once a day for 30 day(s) Not-Taking Miconazole Nitrate 2 % 1 application Externally Twice a day Active Tylenol 325 MG 2 tablet as needed Orally ev adin 4 hrs for pain/fever. MDD= 3gm/24hrs Active Aleve PM 220-25 MG Orally Not-Ta lydia Levaquin 500 MG 1 tablet Orally Once a day for 10 day(s) 1 Feb, Not-Taking Bisacodyl 10 MG 1 suppository as needed Rectal Once a day for 30 day( s) Active Senna S 8.6-50 MG 2 tablet in the evening as needed Orally Once a day Active Omeprazole 20 MG 1 capsule 30 minutes before morning meal Orally Once a day for 30 day(s) Active Levaquin 500 MG 1 tablet Orally Once a day for 10 day(s) 1 Aug, Not-Taking Metoprolol Tartrate 50 MG 1 tablet with food Orally Twice a day Active Furosemide 40 MG 1 tablet Orally Once a day for 30 day(s) Active Metformin 1 tab Oral bid Active Iron 325 (65 Fe) MG 1 tablet Orally Once a day for 30 day(s) Active Xarelto 20 MG 1 tablet with food Orally Once a day for 30 day(s) Active Warfarin Sodium 2.5 MG 1 tablet Orally wednesday only Not-Taking Bactrim DS 800-160 1 tablet orally twice a day for 10 days Jan, Not-Taking Milk of Magnesia 400 MG/5ML 30mL Orally as needed 1 time per day Active Warfarin Sodium 5 MG 1 tablet Orally daily except wednesday Not-Taking Glucagon Emergency 1 MG as directed Injection Active Disposable Enema 19-7 gram/118mL per rectum as needed 1 time per day for constipation Active Hydrocortisone 1 % 1 application to affected ar ea Externally Twice a day for 7 days Jun, Not-Taking Aspirin 81 MG 1 tablet Orally Once a day Active Acetaminophen 500 MG 1 capsule Orally before bedtime Active Vitamin C 500 MG Orally Not-Taki ng Zoloft 50 MG 1 tablet Orally Once a day Active Levemir 100 UNIT/ML as directed Subcutaneous 10 unites subcutaneous ly daily Active Vitamin D 1000 UNIT 1 capsule Orally Once a day Not-Taking Pantoprazole Sodium 40 MG 1 tablet Orally Once a day Not-Taking Baclofen 10 MG 1 tablet with food or milk Orally bid Not-Taking Januvia 50 MG as directed Orally Daily Active PROCEDURES Procedure Date Ordered Result Body Site LIDOCAINE 4% CREAM TOPICAL 2020-02-08 N/A RESULTS No Results REASON FOR VISIT [...] Notes Treatment Notes Treatm ent Clinical Notes Jan, Atherosclerosis of [place] ar katie of left lower extremity with ulceration of other part of lower leg (ICD-10 - I70.248) Jan, Non-pressure chronic ulcer o f other part of left lower leg with fat layer exposed (ICD-10 - L97.822) Jan, Skin tag (ICD-10 - L91.8) Jan, Immunization not carried out because of patient refusal (ICD-10 - Z28.21) Jan, Other Dressing changes 3X a week but, Santyl should be applied daily. The dressing should follow those documented in the procedure note SANTYL LOT [id number] EXP 02/09 PLAN OF TREATMENT Next Appt Details 2 Weeks Reason: Provider Name:Makenziedayanara Partida 02-28 10:30:00 AM, [place], [address], Provider Name:Makenzie Skye Jaquan 03-07 10:30:00 AM, [address] [place], [address], Insurance Providers Payer Name Payer Address Payer Phone Insured Name Patient Relati onship to Insured Coverage Start Date Coverage End Date MEDICARE Part A and B [address] [facility] [phone] MUKESH FLETCHER self MEDICAID [employer] [address] [facility] [address] MUKESH FLETCHER self
--- OUTSIDE RECORDS SUMMARY | 2020-04-02 10:20 | CCD ---
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 Active 69462145 Problem Idiopathic chronic venous hy pertension of right lower extremity with 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 Active 926086578 Problem Atherosclerosis of [place] ar katie of right lower extremity with ulceration of ankle I70.233 Active [id number] ALLERGIES Allergen (clinical drug ingredient) Drug/Non Drug Allergy do cumented on EMR Reaction Allergy Type Onset Date Status Penicillin (For Allergies Use Only) Unknown Drug Allerg y Active ENCOUNTERS from 1950 to 2020-02-05 Encounter Location Date Provider Diagnosis [facility] Wound Care [address] [place] [address] Jan Makenzie Partida IMMUNIZATIONS Vaccine Route Administration Date Status Influenza (6mo & up) Fluzone Unknown July 10, 2014 Ref used SOCIAL HISTORY Tobacco Use: Social History Observation Description Date Details (start date - stop date) never smoker Sex Assigned At : Social History Observation Description Sex Assigned At Unknown Tobacco Use: Question Answer Notes Are you a: never smoker REASON FOR REFERRAL No Information VITAL SIGNS No information MEDICATIONS Medication SIG (Take, Route, Frequency, Duration) Start Date En d Date Status Tramadol HCl 50 MG 1 tab Orally every 12 hours as needed/MMD#4 Not-Taking Bactrim DS 800-160 1 tablet orally twice a day for 10 days Jan, Not-Taking Valcyclovir-1000 mg TID 500 mg 2 tabs orally three times a day Not-Taking Levemir 100 UNIT/ML as directed Subcutaneous 10 unites subcutaneous ly daily Active Miconazole Nitrate 2 % 1 application Externally Twice a day Active Glucagon Emergency 1 MG as directed Injection Active Vitamin D3 25 MCG (1000 UT) 1 capsule Orally Once a day for 30 day( s) Active Diovan 160 MG 1 tablet Orally Once a day for 30 day(s) Not-Taking Levaquin 500 MG 1 tablet Orally Once a day for 10 day(s) Jan, 17 Not-Taking Levaquin 500 MG 1 tablet Orally Once a day for 10 day(s) Aug, 17 Not-Taking Crestor 20 MG 1 tablet Orally Once a day Active Bisacodyl 10 MG 1 suppository as needed Rectal Once a day for 30 da y(s) Active Furosemide 40 MG 1 tablet Orally Once a day for 30 day(s) Active Pantoprazole Sodium 40 MG 1 tablet Orally Once a day Not-Taking Milk of Magnesia 400 MG/5ML 30mL Orally as needed 1 time per day Active Metoprolol Tartrate 50 MG 1 tablet with food Orally Twice a day Active Disposable Enema 19-7 gram/118mL per rectum as needed 1 time per day for constipation Active Omeprazole 20 MG 1 capsule 30 minutes before morning meal Orally Once a day for 30 day(s) Active Aspirin 81 MG 1 tablet Orally Once a day Active Tylenol 325 MG 2 tablet as needed Orally ev adin 4 hrs for pain/fever. MDD= 3gm/24hrs Active Levaquin 500 MG 1 tablet Orally Once a day for 10 day(s) Feb, 16 Not-Taking Ropinirole HCl 0.25 MG 1 tablet 1 to 3 hours before bedtime Orally twice daily Active Warfarin Sodium 5 MG 1 tablet Orally daily except wednesday Not-Taking Lisinopril 20 20 mg as directed oral bid Not-Taking Acetaminophen 500 MG 1 capsule Orally before bedtime Active Hydrocortisone 1 % 1 application to affected ar ea Externally Twice a day for 7 days Jun, Not-Taking Warfarin Sodium 2.5 MG 1 tablet Orally wednesday only Not-Taking Lasix 40 MG 1 tablet Orally Once a day for 30 day(s) Not-Taking Senna S 8.6-50 MG 2 tablet in the evening as needed Orally Once a d ay Active Aleve PM 220-25 MG Orally Not-Takin g Requip Not-Taking Zoloft 50 MG 1 tablet Orally Once a day A ctive Erythromycin 5 MG/GM 1 application Ophthalmic Four times a day Not-Taking Metformin 1 tab Oral bid Active Xarelto 20 MG 1 tablet with food Orally Once a day for 30 day(s) Active Januvia 50 MG as directed Orally Daily Ac tive Baclofen 10 MG 1 tablet with food or milk Orally bid Not-Taking Iron 325 (65 Fe) MG 1 tablet Orally Once a day for 30 day(s) Active Vitamin D 1000 UNIT 1 capsule Orally Once a day Not-Taking Vitamin C 500 MG Orally Not-Taking PROCEDURES No Information RESULTS No Results REASON FOR VISIT No Information MEDICAL (GENERAL) HISTORY Type Description Date Medical [...] No Information FUNCTIONAL STATUS No Information ASSESSMENTS No Information PLAN OF TREATMENT Next Appt Details Provider Name:Makenzie Partida, 02-07 10:00:00 AM, [address] [place], [address], Insurance Providers Payer Name Payer Address Payer Phone Insured Name Patient Relati onship to Insured Coverage Start Date Coverage End Date MEDICAID [employer] [address] [place] [id number] [phone] MUKESH FLETCHER MEDICARE Part A and B [address] [facility] [address] MUKESH FLETCHER
--- OUTSIDE RECORDS SUMMARY | 2020-04-02 10:20 | CCD | Continuity of Care Document ---
Author Organization Unknown Address Unknown Phone Unavailable Care Team Providers Care Pipe Stem Aligner Name Role Phone Bharti De Oliveira DO AUTM Unavailable Problems Description No Information Available Social History Type Date Description Comments Sex Unknown Allergies, Adverse Reactions, Alerts Description No Information Available Medications Description No Information Available Immunizations Description No Information Available Vital Signs Description No Information Available Results Test Acquired Date Facility Test Result H/L Range Note Laboratory test finding 01/09/[address] [address] [phone] Bedside Glucose 241 mg/dL High 80-115 Procedures Description No Information Available Medical Devices Description No Information Available Encounters Description No Information Available Assessments Date Code Description Provider 11/29/2019 R60.0 Localized edema Bharti De Oliveira,DO 11/29/2019 I73.9 Peripheral vascular disease, uns pecified Bharti De Oliveira,DO 11/29/2019 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 Bharti De Oliveira,DO 11/29/2019 E11.9 Type 2 diabetes mellitus without complications Bharti De OliveiraDO 11/29/2019 D50.9 Iron deficiency anemia, unspecif ied Bharti De Oliveira,DO 11/29/2019 I13.0 Hypertensive heart a nd chronic kidney disease with heart failure and stage 1 through stage 4 chronic kidney disease, or unspecified chronic kidney disease Bharti De Oliveira,DO 11/29/2019 I50.32 Chronic diastolic (congestive) h eart failure Bharti De Oliveira,DO 11/29/2019 N18.3 Chronic kidney disease, stage 3 (moderate) Bharti De Oliveira,DO 10/24/2019 L30.9 Dermatitis, unspecified Fatimah Brandt, [facility] 10/24/2019 E11.65 Type 2 diabetes mellitus with hy perglycemia Fatimah Brandt, [facility] 10/24/2019 I50.32 Chronic diastolic (congestive) h eart failure LUIS A Reyes 10/24/2019 N18.3 Chronic kidney disease, stage 3 (moderate) Fatimah Brandt [facility] 10/24/2019 I48.91 Unspecified atrial fibrillation Fatimah Brandt [facility] 10/24/2019 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
--- OUTSIDE RECORDS SUMMARY | 2020-04-02 10:20 | CCD ---
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 Active 13182325 Problem Idiopathic chronic venous hy pertension of right lower extremity with 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 Active 320579466 Problem 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 I70.233 Active 562882737703251 ALLERGIES Allergen (clinical drug ingredient) Drug/Non Drug Allergy do cumented on EMR Reaction Allergy Type Onset Date Status Penicillin (For Allergies Use Only) Unknown Drug Allerg y Active ENCOUNTERS from 1950 to 2020-02-10 Encounter Location Date Provider Diagnosis [facility] [address] [place] [address] Jan Makenzie Partida Atherosclerosis of [place] artery of left lower extremity with ulceration of other part of lower leg I70.248 ; Non-pressure chronic ulcer of other part of left lower leg with fat layer exposed L97.822 and Skin tag L91.8 IMMUNIZATIONS Vaccine Route Administration Date Status Influenza [...] VITAL SIGNS Weight 216 lbs Jan, Weight-kg per patient kg Jan, Height 59.5 in Jan, BMI 42.89 kg/m2 Jan, Heart Rate 68 /min Jan, Respiratory Rate 18 /min Jan, Temperature 98.8 degrees Fahrenheit Jan, Oximetry 98 Jan, Blood pressure systolic 126 mm Hg Jan, Blood pressure diastolic 88 mm Hg Jan, MEDICATIONS Medication SIG (Take, [...] Result Body Site LIDOCAINE 4% CREAM TOPICAL 2020-02-01 N/A RESULTS No Results REASON FOR VISIT [...] Treatm ent Clinical Notes Jan, Atherosclerosis of [place] of left lower extremity with ulceration of other part of lower leg (ICD-10 - I70.248) Jan, Non-pressure chronic ulcer o f other part of left lower leg with fat layer exposed (ICD-10 - L97.822) Jan, Skin tag (ICD-10 - L91.8) Jan, Other Dressing changes 3X a week but, Santyl should be applied daily. The dressing should follow those documented in the procedure note XYLOCAINE 2% [id number] EXP:09/11 1ML INJECTED BY MD HALL LOT [id number] EXP 01/09APPLIED TO LEFT MEDIAL LOWER LEG PLAN OF TREATMENT Treatment Notes Test Name Order Date Pathology Request For Service 2020-02-10 Next Appt Details 1 Week Reason: Provider Name:Makenziedayanara Partida, 02-21 10:30:00 AM, [address] [place], [address], Insurance Providers Payer Name Payer Address Payer Phone Insured Name Patient Relati onship to Insured Coverage Start Date Coverage End Date MEDICAID [employer] [address] [facility] [id number] MUKESH FLETCHER MEDICARE Part A and B [address] [facility] [address] MUKESH FLETCHER
--- OUTSIDE RECORDS SUMMARY | 2020-04-02 10:20 | CCD ---
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 Active 90956735 Problem Idiopathic chronic venous hy pertension of right lower extremity with 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 Active 915854584 Problem 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 I70.233 Active 171387695072316 ALLERGIES Allergen (clinical drug ingredient) Drug/Non Drug Allergy do cumented on EMR Reaction Allergy Type Onset Date Status Penicillin (For Allergies Use Only) Unknown Drug Allerg y Active ENCOUNTERS from 1950 to 2020-02-28 Encounter Location Date Provider Diagnosis [facility] [address] [place] [address] Feb Makenzie Partida Atherosclerosis of [place] artery of left lower extremity with ulceration [...] Feb, BMI 42.89 kg/m2 Feb, Heart Rate 70 /min Feb, Respiratory Rate 18 /min Feb, Temperature 97.3 degrees Fahrenheit Feb, Oximetry 99 Feb, Blood pressure systolic 145 mm Hg Feb, Blood pressure diastolic 83 mm Hg Feb, MEDICATIONS Medication SIG (Take, Route, Frequency, Duration) Notes Start Da te End Date Status Levaquin 500 MG 1 tablet Orally Once a day for 10 day(s) 2 Jan, Not-Taking Levaquin 500 MG 1 tablet Orally Once a day for 10 day(s) 1 Aug, Not-Taking Iron 325 (65 Fe) MG 1 tablet Orally Once a day for 30 day(s) Active Lisinopril 20 20 mg as directed oral bid Not-Taking Bisacodyl 10 MG 1 suppository as needed Rectal Once a day for 30 day( s) Active Ropinirole HCl 0.25 MG 1 tablet 1 to 3 hours before bedtime Orally twice daily Active Aspirin 81 MG 1 tablet Orally Once a day Active Pantoprazole Sodium 40 MG 1 tablet Orally Once a day Not-Taking Levaquin 500 MG 1 tablet Orally Once a day for 10 day(s) 1 Feb, Not-Taking Metformin 1 tab Oral bid Active Disposable Enema 19-7 gram/118mL per rectum as needed 1 time per day for constipation Active Acetaminophen 500 MG 1 capsule Orally before bedtime Active Warfarin Sodium 2.5 MG 1 tablet Orally wednesday only Not-Taking Vitamin C 500 MG Orally Not-Taki ng Valcyclovir-1000 mg TID 500 mg 2 tabs orally three times a day Not-Taking Erythromycin 5 MG/GM 1 application Ophthalmic Four times a day Not-Taking Levemir 100 UNIT/ML as directed Subcutaneous 10 unites subcutaneous ly daily Active Warfarin Sodium 5 MG 1 tablet Orally daily except wednesday Not-Taking Baclofen 10 MG 1 tablet with food or milk Orally bid Not-Taking Januvia 50 MG as directed Orally Daily Active Xarelto 20 MG 1 tablet with food Orally Once a day for 30 day(s) Active Hydrocortisone 1 % 1 application to affected ar ea Externally Twice a day for 7 days Jun, Not-Taking Metoprolol Tartrate 50 MG 1 tablet with food Orally Twice a day Active Glucagon Emergency 1 MG as directed Injection Active Requip Not-Taking Tramadol HCl 50 MG 1 tab Orally every 12 hours as needed/MMD#4 Not-Taking Crestor 20 MG 1 tablet Orally Once a day Active Tylenol 325 MG 2 tablet as needed Orally ev adin 4 hrs for pain/fever. MDD= 3gm/24hrs Active Miconazole Nitrate 2 % 1 application Externally Twice a day Active Lasix 40 MG 1 tablet Orally Once a day for 30 day(s) Not-Taking Vitamin D 1000 UNIT 1 capsule Orally Once a day Not-Taking Bactrim DS 800-160 1 tablet orally twice a day for 10 days Jan, Not-Taking Vitamin D3 25 MCG (1000 UT) 1 capsule Orally Once a day for 30 day(s) Active Diovan 160 MG 1 tablet Orally Once a day for 30 day(s) Not-Taking Aleve PM 220-25 MG Orally Not-Ta lydia Furosemide 40 MG 1 tablet Orally Once a day for 30 day(s) Active Senna S 8.6-50 MG 2 tablet in the evening as needed Orally Once a day Active Zoloft 50 MG 1 tablet Orally Once a day Active Milk of Magnesia 400 MG/5ML 30mL Orally as needed 1 time per day Active Omeprazole 20 MG 1 capsule 30 minutes before morning meal Orally Once a day for 30 day(s) Active PROCEDURES from 1950 to 2020-02-28 Procedure Date Ordered Result Body Site LIDOCAINE 4% CREAM TOPICAL 2020-02-22 N/A RESULTS No Results REASON FOR VISIT [...] Treatm ent Clinical Notes Feb, Atherosclerosis of [place] of left lower extremity with ulceration of other part of lower leg (ICD-10 - I70.248) hydrogel lot [id number] exp Feb, Non-pressure chronic ulcer o f other part of left lower leg with fat layer exposed (ICD-10 - L97.822) Feb, Skin tag (ICD-10 - L91.8) Feb, Other Dressing changes once a week and as needed for drainage. The dressing should follow those documented in the procedure note SANTYL LOT [id number] EXP 02/09 PLAN OF TREATMENT Treatment Notes Assessment Notes Clinical Notes Atherosclerosis of [place] artery of left lower extremity with ulceration of other [place] [id number] exp 05-11 Next Appt Details 1 Week Reason: Provider Name:Makenzie Partida 02-28 10:30:00 AM, [address] [place], [address], Provider Name:Makenzie Partida 03-07 10:30:00 AM, [address] [place], [address], Insurance Providers Payer Name Payer Address Payer Phone Insured Name Patient Relati onship to Insured Coverage Start Date Coverage End Date MEDICARE Part A and B [address] [facility] [phone] MUKESH FLETCHER self MEDICAID [employer] [address] [facility] [id number] MUKESH FLETCHER self
--- OUTSIDE RECORDS SUMMARY | 2020-04-02 10:20 | CCD ---
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 Active 10890898 Problem Idiopathic chronic venous hy pertension of right lower extremity with 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 Active 607096408 Problem 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 I70.233 Active 444696607647316 ALLERGIES Allergen (clinical drug ingredient) Drug/Non Drug Allergy do cumented on EMR Reaction Allergy Type Onset Date Status Penicillin (For Allergies Use Only) Unknown Drug Allerg y Active ENCOUNTERS from 1950 to 2020-01-30 Encounter Location Date Provider Diagnosis [facility] [address] [place] [address] Dec Jayy Ambrosio Idiopathic chronic venous hypertension o f right lower extremity with 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 ; Atherosclerosis of [place] artery of right lower extremity with ulceration of ankle I70.233 ; Non-pressure chronic ulcer of other part of right lower leg limited to breakdown of skin L97.811 ; Atherosclerosis of [place] artery of left lower extremity with ulceration of other part of lower leg I70.248 ; Non-pressure chronic ulcer of other part of left lower leg with fat layer exposed L97.822 and Immunization not carried out because of [...] No Information VITAL SIGNS Weight 216 lbs Dec, Weight-kg PER PT kg Dec, Height 59.5 in Dec, BMI 42.89 kg/m2 Dec, Heart Rate 87 /min Dec, Respiratory Rate 19 /min Dec, Temperature 95.1 degrees Fahrenheit Dec, Oximetry 99% Dec, Blood pressure systolic 130 mm Hg Dec, Blood pressure diastolic 62 MANUALLY mm Hg Dec, MEDICATIONS Medication SIG (Take, Route, Frequency, Duration) Start Date En d Date Status Vitamin C 500 MG Orally Not-Taking Disposable Enema 19-7 gram/118mL per rectum as needed 1 time per day for constipation Active Requip Not-Taking Tramadol HCl 50 MG 1 tab Orally every 12 hours as needed/MMD#4 Not-Taking Xarelto 20 MG 1 tablet with food Orally Once a day for 30 day(s) Active Milk of Magnesia 400 MG/5ML 30mL Orally as needed 1 time per day Active Tylenol 325 MG 2 tablet as needed Orally ev adin 4 hrs for pain/fever. MDD= 3gm/24hrs Active Omeprazole 20 MG 1 capsule 30 minutes before morning meal Orally Once a day for 30 day(s) Active Januvia 50 MG as directed Orally Daily Ac tive Bactrim DS 800-160 1 tablet orally twice a day for 10 days Jan, Not-Taking Iron 325 (65 Fe) MG 1 tablet Orally Once a day for 30 day(s) Active Pantoprazole Sodium 40 MG 1 tablet Orally Once a day Not-Taking Levemir 100 UNIT/ML as directed Subcutaneous 10 unites subcutaneous ly daily Active Levaquin 500 MG 1 tablet Orally Once a day for 10 day(s) Jan, 17 Not-Taking Hydrocortisone 1 % 1 application to affected ar ea Externally Twice a day for 7 days Jun, Not-Taking Levaquin 500 MG 1 tablet Orally Once a day for 10 day(s) Feb, 16 Not-Taking Bisacodyl 10 MG 1 suppository as needed Rectal Once a day for 30 da y(s) Active Aleve PM 220-25 MG Orally Not-Takin g Lasix 40 MG 1 tablet Orally Once a day for 30 day(s) Not-Taking Vitamin D3 25 MCG (1000 UT) 1 capsule Orally Once a day for 30 day( s) Active Erythromycin 5 MG/GM 1 application Ophthalmic Four times a day Not-Taking Metformin 1 tab Oral bid Active Ropinirole HCl 0.25 MG 1 tablet 1 to 3 hours before bedtime Orally twice daily Active Crestor 20 MG 1 tablet Orally Once a day Active Acetaminophen 500 MG 1 capsule Orally before bedtime Active Levaquin 500 MG 1 tablet Orally Once a day for 10 day(s) Aug, Not-Taking Vitamin D 1000 UNIT 1 capsule Orally Once a day Not-Taking Miconazole Nitrate 2 % 1 application Externally Twice a day Active Furosemide 40 MG 1 tablet Orally Once a day for 30 day(s) Active Aspirin 81 MG 1 tablet Orally Once a day Active Valcyclovir-1000 mg TID 500 mg 2 tabs orally three times a day Not-Taking Glucagon Emergency 1 MG as directed Injection Active Zoloft 50 MG 1 tablet Orally Once a day A ctive Senna S 8.6-50 MG 2 tablet in the evening as needed Orally Once a d ay Active Metoprolol Tartrate 50 MG 1 tablet with food Orally Twice a day Active Warfarin Sodium 5 MG 1 tablet Orally daily except wednesday Not-Taking Warfarin Sodium 2.5 MG 1 tablet Orally wednesday only Not-Taking Diovan 160 MG 1 tablet Orally Once a day for 30 day(s) Not-Taking Baclofen 10 MG 1 tablet with food or milk Orally bid Not-Taking Lisinopril 20 20 mg as directed oral bid Not-Taking PROCEDURES Procedure Date Ordered Result Body Site LIDOCAINE 4% CREAM TOPICAL 2020-01-18 N/A RESULTS No Results REASON FOR VISIT [...] STATUS No Information ASSESSMENTS Encounter Date Diagnosis Notes Dec, Non-pressure chronic ulcer o f other part of left lower leg with fat layer exposed (ICD-10 - L97.822) Dec, Atherosclerosis of [place] of left lower extremity with ulceration of other part of lower leg (ICD-10 - I70.248) Dec, Immunization not carried out because of patient refusal (ICD-10 - Z28.21) Dec, Idiopathic chronic venous hy pertension of right lower extremity with ulcer (ICD-10 - I87.311) Dec, Non-pressure chronic ulcer o f other part of right lower leg limited to breakdown of skin (ICD-10 - L97.811) Dec, 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 (ICD-10 - I70.233) PLAN OF TREATMENT Next Appt Details 1 Week Reason: Provider Name:Makenzie Partida, 01-31 09:00:00 AM, [place], [address], Insurance Providers Payer Name Payer Address Payer Phone Insured Name Patient Relati onship to Insured Coverage Start Date Coverage End Date MEDICAID [employer] [address] [facility] [id number] MUKESH FLETCHER self MEDICARE Part A and B [address] [facility] [address] MUKESH FLETCHER self
--- OUTSIDE RECORDS SUMMARY | 2020-04-02 10:20 | CCD ---
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 Active 60472411 Problem Idiopathic chronic venous hy pertension of right lower extremity with 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 Active 286010214 Problem Atherosclerosis of [place]atie of right lower extremity with ulceration of ankle I70.233 Active 244208781387283 ALLERGIES Allergen (clinical drug ingredient) Drug/Non Drug Allergy do cumented on EMR Reaction Allergy Type Onset Date Status Penicillin (For Allergies Use Only) Unknown Drug Allerg y Active ENCOUNTERS from 1950 to 2020-02-10 Encounter Location Date Provider Diagnosis [facility] [address] [place] [address] Jan Makenzie Partida Idiopathic chronic venous hypertension o f right lower extremity with 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 ; Atherosclerosis of [place] artery of right lower extremity with ulceration of ankle I70.233 ; Non-pressure chronic ulcer of other part of right lower leg limited to breakdown of skin L97.811 ; Atherosclerosis of [place] artery of left lower extremity with ulceration [...] Information VITAL SIGNS Weight 216 lbs Jan, Height 59.5 in Jan, BMI 42.89 kg/m2 Jan, Heart Rate 68 /min Jan, Respiratory Rate 18 /min Jan, Temperature 97.4 degrees Fahrenheit Jan, Oximetry 97 Jan, Blood pressure systolic 157 mm Hg Jan, Blood pressure diastolic 70 mm Hg Jan, MEDICATIONS Medication SIG (Take, [...] Once a day for 10 day(s) 1 5 Aug, 2016 Not-Taking Metoprolol Tartrate 50 MG 1 tablet [...] Result Body Site LIDOCAINE 4% CREAM TOPICAL 2020-01-25 N/A RESULTS No Results REASON FOR VISIT [...] Treatment Notes Treatm ent Clinical Notes Jan, Idiopathic chronic venous hy pertension of right lower extremity with ulcer (ICD-10 - I87.311) Dressing changes 3X a week. The dressing should follow those documented in the procedure note Jan, Atherosclerosis of [place] ar [place]atie of right lower extremity with ulceration of ankle (ICD-10 - I70.233) Jan, Non-pressure chronic ulcer o f other part of right lower leg limited to breakdown of skin (ICD-10 - L97.811) Jan, Atherosclerosis of [place] ar katie of left lower extremity with ulceration of other part of lower leg (ICD-10 - I70.248) Jan, Non-pressure chronic ulcer o f other part of left lower leg with fat layer exposed (ICD-10 - L97.822) Jan, Immunization not carried out because of patient refusal (ICD-10 - Z28.21) Jan, Other XYLOCAINE 2% LO [id number] EXP:08/11 4ML INJECTED BY PLAN OF TREATMENT Treatment Notes Assessment Notes Clinical Notes Idiopathic chronic venous hypertension of right lower extremity with ulcer Dressing changes 3X a week. The dressing should follow those documented in the procedure note Next Appt Details 1 Week Reason: Provider Name:Makenzie Partida, 02-21 10:30:00 AM, [address] [place], [address], Insurance Providers Payer Name Payer Address Payer Phone Insured Name Patient Relati onship to Insured Coverage Start Date Coverage End Date MEDICAID [employer] [address] [facility] [id number] MUKESH FLETCHER self MEDICARE Part A and B [address] [facility] [phone] MUKESH FLETCHER self
--- OUTSIDE RECORDS SUMMARY | 2020-04-02 10:20 | CCD | Continuity of Care Document ---
Author Author Sallie BALL MD Organization Unknown Address [address] [facility] [place] [address] Phone [phone] Care Team Providers Care Furniture Inspector Name Role Phone Jose Ball MD AUTM [phone] ResetaritsVlad MD AUTM [phone] Bharti De Oliveira DO AUTM [phone] Deedee Bernardo MD AUTM [phone] Jayy Ambrosio MD AUTM [phone] Problems Active Problems Provider Date Atrial fibrillation Herminia Alcala, PA-C Onset: 04/23/2011 Electrocardiogram abnormal Herminia Alcala, PA-C Onset: 04/23 First degree atrioventricular block Herminia Alcala PA-C Ons et: 04/23/2011 Premature beats Herminia Alcala, PA-C Onset: 04/23/2011 Hyperlipidemia Herminia Alcala, PA-C Onset: 04/23/2011 Obesity Herminia Alcala, PA-C Onset: 04/23/2011 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 Herminia Mansfieldw, PA-C Onset: 05/01/2013 Carotid artery occlusion Herminia Alcala, PA-C Onset: 015 Chronic atrial fibrillation Herminiacodie Alcala, PA-C Onset: 10/2015 Essential hypertension Herminia Mansfieldw, PA-C Onset: 6 Mixed hyperlipidemia Herminiacodie Mansfieldw, PA-C Onset: 09/14/2016 Dietary management surveillance Herminia Alcala PA-C Onset: 09/14/2016 Aortic valve disorder Herminia Alcala PA-C Onset: 09/14/2016 Mitral valve disorder Herminia Alcala PA-C Onset: 09/14/2016 Permanent atrial fibrillation Jose Ball MD Onset: Preoperative cardiovascular examination Jose Ball MD Onset: 03/05/2020 Dyspnea Jose Ball MD Onset: 03/05/2020 Social History Type Date Description Comments Sex Unknown ETOH Use Does not consume alcohol Tobacco Use Start: Unknown End: Unknown Patient is a former smoker up to 1ppd x29 yrs, quit 2005 Smoking Status Reviewed: 03/05/20 Patient is a former smoker up to 1ppd x29 yrs, quit 2005 Exercise Type/Frequency Limited self-car e: Confined to bed/chair > 50% of waking hours Exercise Limitations Shortness Of Breath Exercise Limitations Orthopedic Problem AKA of r ight leg Allergies, Adverse Reactions, Alerts Active Allergies Reaction Severity Comments Date Penicillin rash and SOB 04/26/2014 Inactive Allergies NKDA 06/14/2009 Medications Active Medications SIG Qnty Indications Ordering Provide r Date Vascepa 1gm Capsules 2 caps by mouth twice a day (take with meals) 120caps E78.2 Jose Ball MD Milk Of Magnesia 400mg/5ML Suspens ion 30 milliliters by mouth once daily as needed Unknow n 03/04/[address] 1 by mouth every day Unknown 03/04/2020 Iron 325(65Fe) mg Tablets 1 by mouth every day Unknown 03/04/2020 Bisacodyl 10mg Suppository 1 rectally as needed Unknown 03/04/2020 Enema Disposable Enema 1 rectally every day as needed Unknown 03/04/2020 Vitamin D (Cholecalciferol) 25mcg (1000 Ut) Tablets 1 by mouth every day Unknown 020 Furosemide 40mg Tablets 1 by mouth every day Unknown 03/04/2020 Glucagon Emergency 1mg Kit as directed injection Unknown 03/04/[address] 1 by mouth every day Unknown 03/04/2020 Crestor 20mg Tablets 1 by mouth every night at bedtime Unknown 03/04/2020 Senna-Lax 8.6mg Tablets 1-2 by mouth every day at bedtime Unknown 03/04/2020 Metoprolol Tartrate 50mg Tablets 1 by mouth twice a day Unknown 03/04/2020 Antifungal 2% Powder as direc anthony Unknown 03/04/2020 Acetaminophen Extra Strength 500mg Tablets 1-2 by mouth as needed Unknown 03/04 Ropinirole HCL 0.25mg Tablets 1 by mouth bid Unknown 03/04/2020 Metformin HCL 500mg Tablets 1 by mouth twice a day Unknown 03/04/2020 Sertraline HCL 50mg Tablets 1 by mouth every day Unknown 03/04/2020 Januvia 50mg Tablets 1 by mouth every day Unknown 03/04/2020 Latanoprost 0.005% Solution 1 drop both eyes every night at bedtime Unknown 02/19 Levemir 100Unit/ML Solution inject sq as directed Unknown 03/04/2020 Xarelto 20mg Tablets 1 by mouth every day Unknown 03/04/2020 Allopurinol 100mg Tablets 1 by mouth every day Unknown 03/04/2020 Immunizations Description No Information Available Vital Signs Date Vital Result Comment 03/05/2020 2:11pm Home Weight 218lb home weight Height 59 inches 4'11" Heart Rate 75 /min BP Systolic Sitting 154 mmHg Omron, left forearm (per pateint request) BP Diastolic Sitting 75 mmHg Omron, left forearm (per pateint request) 09/14/2016 3:22pm Weight 226.00 lb Height 59 inches 4'11" BMI (Body Mass Index) 45.6 kg/m2 Heart Rate 80 /min Regular Respiratory Rate 18 /min 76 BP Systolic Left Arm 128 mmHg Sitting, large cuff BP Diastolic Left Arm 76 mmHg Sitting, large cuf f Results Test Acquired Date Facility Test Result H/L Range Note Basic Metabolic Panel 03/04/2020 [facility] - not interfac ed (315)- - Glucose 173 High 70-100 Blood Urea Nitrogen 16 7-18 Creatinine 0.93 0.6-1.0 Sodium 141 136-145 Potassium 3.9 3.5-5.1 Chloride 104 98-107 Carbon Dioxide 28 21-32 Calcium 8.9 8.2-9.6 GFR (Calculated) >60.0 >32 CBC without Differential 03/04/2020 [facility] - not inter faced (315)- - White Blood Count 8.3 4.0-10.0 Red Blood Count 4.34 4.00-5.40 Platelets 318 172-450 Hemoglobin 11.6 Hematocrit 39.2 Lipid Profile/Cardiac Risk Pro 01/16/2020 [facility] - not interfaced (315)- - Triglycerides 214 High <150 Cholesterol 126 <200 HDL 35 Low >40.0 LDL Cholesterol 48 Chol/HDL Ratio 3.600 <5 Procedures Date Code Description Status 03/05/2020 86910 ECG 12-Lead Completed Medical Devices Description No Information Available Encounters Type Date Location Provider Dx Diagnosis Office Visit 03/05/2020 2:30p Main Office Jose Ball MD I48.2 1 Permanent atrial fibrillation I10 Essential (primary) hyperten chava R06.02 Shortness of breath Z01.810 Encounter for preprocedural cardiovascular examination I35.8 Other nonrheumatic aortic va lve disorders E66.09 Other obesity due to excess calories E78.2 Mixed hyperlipidemia Assessments Date Code Description Provider 03/05/2020 I48.21 Permanent atrial fibrillation Da araceli Ball MD 03/05/2020 I10 Essential (primary) hypertension Jose Ball MD 03/05/2020 R06.02 Shortness of breath Jose clemente MD 03/05/2020 Z01.810 Encounter for preprocedural card iovascular examination Jose Ball MD 03/05/2020 I35.8 Other nonrheumatic aortic valve disorders Jose Ball MD 03/05/2020 E66.09 Other obesity due to excess inge gallito Jose Ball MD 03/05/2020 E78.2 Mixed hyperlipidemia Jose ackerman MD Plan of Treatment Future Appointment(s):* 09/03/2020 10:15 am - NICHOLE Pascal at Main Office * 04/11/2020 10:00 am - ECHO at Main Office * 04/22/2020 2:00 pm - Holter/Event/Telemetry at Main Office 03/05/2020 - Jose Ball MD* I48.21 Permanent atrial fibrillation* New Orders:* Holter Monitor, Scheduled: 04/22/20 * I10 Essential (primary) hypertension * R06.02 Shortness of breath* New Xrays:* PET Myocardial Perfusion Multi Study AT [facility], Ordered: 03/05/20 * Z01.810 Encounter for preprocedural cardiovascular examination * I35.8 Other nonrheumatic aortic valve disorders* New Xrays:* US Echocardiogram Transthoracic W Doppler And Color Flow, Scheduled: 04/11/20 * E66.09 Other obesity due to excess calories * E78.2 Mixed hyperlipidemia* New Medication:* Vascepa 1 gm - 2 caps by mouth twice a day (take with meals) * All * Follow up:* Follow-up in 6 months. Functional Status Functional Condition Comment Date Status Requires assistance with ambulating Active Requires assistance with bathing Active Requires assistance with dressing Active Independent with feeding Active Requires assistance with standing Active Requires assistance with toileting Active Independent with grooming Active Mental Status Description No Information Available Referrals Description No Information Available
--- OUTSIDE RECORDS SUMMARY | 2020-04-02 10:20 | CCD ---
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 I70.248 Active 055959953 Problem Non-pressure chronic ulcer o f other part of left lower leg with fat layer exposed L97.822 Active 13076698 Problem Idiopathic chronic venous hy pertension of right lower extremity with 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 Active 860374265 Problem 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ound [facility] [address] [place] [address] Dec Jayy Ambrosio Idiopathic chronic venous hypertension o f right lower extremity with 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 ; Atherosclerosis of [place] artery of right lower extremity with ulceration of ankle I70.233 ; Non-pressure chronic ulcer of other part of right lower leg limited to breakdown of skin L97.811 ; Atherosclerosis of [place] artery of left lower extremity with ulceration [...] Information VITAL SIGNS Weight 216 lbs Dec, Height 59.5 in Dec, BMI 42.89 kg/m2 Dec, Heart Rate 80 /min Dec, Respiratory Rate 22 /min Dec, Temperature 97 degrees Fahrenheit Dec, Oximetry 95 Dec, MEDICATIONS Medication SIG (Take, Route, Frequency, Duration) Start Date En d Date Status Valcyclovir-1000 mg TID 500 mg 2 tabs orally three times a day Not-Taking Lasix 40 MG 1 tablet Orally Once a day for 30 day(s) Active Requip Active Warfarin Sodium 2.5 MG 1 tablet Orally wednesday only Active Hydrocortisone 1 % 1 application to affected ar ea Externally Twice a day for 7 days Jun, Active Tramadol HCl 50 MG 1 tab Orally every 12 hours as needed/MMD#4 Active Xarelto 20 MG 1 tablet with food Orally Once a day for 30 day(s) Active Warfarin Sodium 5 MG 1 tablet Orally daily except wednesday Active Diovan 160 MG 1 tablet Orally Once a day for 30 day(s) Active Erythromycin 5 MG/GM 1 application Ophthalmic Four times a day Active Metformin 1 tab Oral for 14 days Activ e Metoprolol Tartrate 25 MG 1 tablet with food Orally Twice a day Active Aspirin 325 MG 1 tablet Orally Once a day Active Pantoprazole Sodium 40 MG 1 tablet Orally Once a day Active Aleve PM 220-25 MG Orally Active Zoloft 100 MG 1 tablet Orally Once a day Active Lisinopril 20 20 mg as directed oral bid Active Bactrim DS 800-160 1 tablet orally twice a day for 10 days Jan, Active Levaquin 500 MG 1 tablet Orally Once a day for 10 day(s) Jan, Active Ropinirole HCl 0.25 MG 1 tablet 1 to 3 hours before bedtime Orally Once a day for 30 day(s) Active Acetaminophen 500 MG 1 capsule as needed Orally every 6 hrs Active Crestor 10 MG 1 tablet Orally Once a day for 30 day(s) Active Baclofen 10 MG 1 tablet with food or milk Orally bid Active Vitamin D 1000 UNIT 1 capsule Orally Once a day Active Vitamin C 500 MG Orally Active Levaquin 500 MG 1 tablet Orally Once a day for 10 day(s) Aug, 17 Not-Taking Levaquin 500 MG 1 tablet Orally Once a day for 10 day(s) Feb, 16 Not-Taking PROCEDURES Procedure Date Ordered Result Body Site LIDOCAINE 4% CREAM TOPICAL 2020-01-11 N/A RESULTS No Results REASON FOR VISIT Non healing wounds left leg MEDICAL (GENERAL) HISTORY Type Description Date Medical [...] exposed (ICD-10 - L97.822) Dec, Atherosclerosis of [place] of left lower extremity with ulceration of other part of lower leg (ICD-10 - I70.248) Dec, Idiopathic chronic venous hy pertension of right lower extremity with ulcer (ICD-10 - I87.311) Dec, Non-pressure chronic ulcer o f other part of right lower leg limited to breakdown of skin (ICD-10 - L97.811) Dec, Atherosclerosis of [place] of right lower extremity with ulceration of ankle (ICD-10 - I70.233) PLAN OF TREATMENT Next Appt Details 1 Week Reason: Provider Name:Makenzie Partida, 01-24 10:30:00 AM, [address] [place], [address], Insurance Providers Payer Name Payer Address Payer Phone Insured Name Patient Relati onship to Insured Coverage Start Date Coverage End Date MEDICAID [employer] [address] [facility] [id number] [phone] MUKESH FLETCHER MEDICARE Part A and B [address] [facility] [address] MUKESH FLETCHER
--- OUTSIDE RECORDS SUMMARY | 2020-04-02 10:20 | CCD | Continuity of Care Document ---
Author Author Sallie BROWN PA Organization Unknown Address [address] [facility], [address] [place] [address] Phone [phone] Care Team Providers Care Veneer Sheet Repairer Name Role Phone Aaron Kurtz AUTM [phone] Bill Love D.O. AUTM [phone] Bharti De Oliveira D.O. AUTM [phone] Problems Active Problems Provider Date Essential hypertension Raj Parks M.D. Onset: 017 Social History Type Date Description Comments Sex Unknown ETOH Use Denies alcohol use Recreational Drug Use Denies Drug Use Tobacco Use Start: Unknown End: Unknown Patient is a former smoker 1 PPD X40 YRS Tobacco Use Start: Unknown Quit 2005 Smoking Status Reviewed: 12/11/19 Quit 2006 Allergies, Adverse Reactions, Alerts Active Allergies Reaction Severity Comments Date Penicillin 08/10/2016 Cipro 12/06/2019 Cefazolin 12/06/2019 Amoxicillin 12/06/2019 Medications Active Medications SIG Qnty Indications Ordering Provide r Date Metoprolol Tartrate 50mg Tablets 1 po bid Unknown Furosemide 40mg Tablets 1 by mouth every day Unknown Zoloft 25mg Tablets 1 by mouth every day Unknown Crestor 20mg Tablets [address] Unknown Metformin HCL ER 500mg Tablets ER 24HR 1 by mouth twice a day Unknown Requip 0.25mg Tablets 1 po bi d Unknown Acetaminophen Extra Strength 500mg Tablets 2 po at hs Unknown Xarelto 20mg Tablets 1 by mouth once a day Unknown Senna Laxative 8.6mg Tablets 2 tabs by mouth every day at bedtime Unknown Glucagon Emergency 1mg Kit prn use as directed Unknown Bisacodyl 10mg Suppository insert into rectum as far as possible as needed Unknown Tylenol 325mg Capsules take 2 tab every 4 hours as needed for pain Unknown Omeprazole 20mg Capsules DR 1 by mouth every day Unknown Milk Of Magnesia 400mg/5ML Suspens ion take 30ml by mouth daily prn Unknown 00 Iron 325(65Fe) mg Tablets take 1 tablet by mouth daily. Unknown Aspirin 81 Low Dose 81mg Chewtabs 1 by mouth every day Unknown Immunizations Description No Information Available Vital Signs Date Vital Result Comment 01/16/2020 9:09am BP Systolic 167 mmHg BP Diastolic 92 mmHg Height 59 inches 4'11" Weight 217.00 lb Stated BMI (Body Mass Index) 43.8 kg/m2 [place] Body Weight 100 lb Weight 98.431 kg 12/11/2019 12:54pm Height 59 inches 4'11" Weight 217.12 lb BMI (Body Mass Index) 43.8 kg/m2 [place] Body Weight 100 lb Weight 98.488 kg Results Description No Information Available Procedures Description No Information Available Medical Devices Description No Information Available Encounters Type Date Location Provider Dx Diagnosis Office Visit 12/11/2019 1:15p [facility] Practice NICHOLE Brownlee I70.249 [place] arteries of left leg w [facility] eration of [facility] site I87.2 Venous insufficiency (chroni c) (peripheral) Office Visit 12/06/2019 11:00a [facility] Practice NICHOLE Brownlee I70.249 Athscl [place] arteries of left leg w [facility] eration of [facility] site I87.2 Venous insufficiency (chroni c) (peripheral) Assessments Date Code Description Provider 12/11/2019 I70.249 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 with ulceration of unspecified site NICHOLE Greenberg 12/11/2019 I87.2 Venous insufficiency (chronic) ( peripheral) NICHOLE Greenberg 12/06/2019 I70.249 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 with ulceration of unspecified site NICHOLE Greenberg 12/06/2019 I87.2 Venous insufficiency (chronic) ( peripheral) NICHOLE Greenberg Plan of Treatment No Information Available Functional Status Description No Information Available Mental Status Description No Information Available Referrals Refer to Reason for Referral Status Appt Date Jayy Ambrosio MD CHRONIC WOUNDS Created Wound Clinic [address] [facility] [address] [phone] Deedee Bernardo MD STASIS DERMATITIS Closed 020 [address] [facility] [address] [place] [address] [phone]
--- OUTSIDE RECORDS SUMMARY | 2020-04-02 10:21 | CCD ---
Author Author [facility] Organization [facility] Address Unknown Phone Unavailable Care Team Providers Care Acute Care Registered Nurse Name Role Phone Enmanuel BALL MD Unavailable Unavailable ANTECOL, Enmanuel PACK MD Unavailable Unavailable ANTECOLEnmanuel MD Unavailable Unavailable ANTECFERNANDO, Enmanuel PACK MD Unavailable Unavailable ANTECOL, Enmanuel PACK MD Unavailable Unavailable ANTECOLEnmanuel MD Unavailable Unavailable ANTECOL, Enmanuel PACK MD Unavailable Unavailable ANTECOLEnmanuel MD Unavailable Unavailable ANTECOLEnmanuel MD Unavailable Unavailable ANTECOL, Enmanuel PACK MD Unavailable Unavailable ANTECOL, Enmanuel PACK MD Unavailable Unavailable ANTECOL, Enmanuel PACK MD Unavailable Unavailable ANTECOL, Enmanuel PACK MD Unavailable Unavailable ANTECOL, Enmanuel PACK MD Unavailable Unavailable ANTECOL, Enmanuel PACK MD Unavailable Unavailable ANTECOL, Enmanuel PACK MD Unavailable Unavailable ANTECOL, Enmanuel PACK MD Unavailable Unavailable ANTECOL, Enmanuel PACK MD Unavailable Unavailable ANTECOL, Enmanuel PACK MD Unavailable Unavailable ANTECOL, Enmanuel PACK MD Unavailable Unavailable ANTECOL, Enmanuel PACK MD Unavailable Unavailable ANTECOL, Enmanuel PACK MD Unavailable Unavailable ANTECOL, Enmanuel PACK MD Unavailable Unavailable ANTECOL, Enmanuel PACK MD Unavailable Unavailable ANTECOL, Enmanuel PACK MD Unavailable Unavailable ANTECOL, Enmanuel PACK MD Unavailable Unavailable ANTECOL, Enmanuel PACK MD Unavailable Unavailable ANTECOL, Enmanuel PACK MD Unavailable Unavailable ANTECOL, Enmanuel PACK MD Unavailable Unavailable ANTECOL, Enmanuel PACK MD Unavailable Unavailable ANTECOL, Enmanuel PACK MD Unavailable Unavailable ANTECOL, Enmanuel PACK MD Unavailable Unavailable ANTECOL, Enmanuel PACK MD Unavailable Unavailable ANTECOL, Enmanuel PACK MD Unavailable Unavailable ANTECOL, Enmanuel PACK MD Unavailable Unavailable ANTECOL, Enmanuel PACK MD Unavailable Unavailable ANTECOL, Enmanuel PACK MD Unavailable Unavailable ANTECOL, Enmanuel PACK MD Unavailable Unavailable ANTECOL, Enmanuel PACK MD Unavailable Unavailable ANTECOL, Enmanuel PACK MD Unavailable Unavailable ANTECOL, Enmanuel PACK MD Unavailable Unavailable ANTECOL, Enmanuel PACK MD Unavailable Unavailable ANTECOL, Enmanuel PACK MD Unavailable Unavailable ANTECOL, Enmanuel PACK MD Unavailable Unavailable ANTECOL, Enmanuel PACK MD Unavailable Unavailable ANTECOL, Enmanuel PACK MD Unavailable Unavailable ANTECOL, Enmanuel PACK MD Unavailable Unavailable ANTECOL, Enmanuel PACK MD Unavailable Unavailable ANTECOL, Enmanuel PACK MD Unavailable Unavailable ANTECOL, Enmanuel PACK MD Unavailable Unavailable ANTECOL, Enmanuel PACK MD Unavailable Unavailable ANTECOL, Enmanuel PACK MD Unavailable Unavailable ANTECOL, Enmanuel PACK MD Unavailable Unavailable ANTECOL, Enmanuel PACK MD Unavailable Unavailable ANTECOL, Enmanuel PACK MD Unavailable Unavailable Pantoja, L Renetta RPA Unavailable Unavailable Pantoja, L Renetta RPA Unavailable Unavailable Pantoja, L Renetta RPA Unavailable Unavailable Pantoja, L Renetta RPA Unavailable Unavailable Pantoja, L Renetta RPA Unavailable Unavailable Pantoja, L Renetta RPA Unavailable Unavailable Pantoja, L Renetta RPA Unavailable Unavailable Pantoja, L Renetta RPA Unavailable Unavailable Pantoja, L Renetta RPA Unavailable Unavailable Pantoja, L Renetta RPA Unavailable Unavailable Pantoja, L Renetta RPA Unavailable Unavailable Pantoja, L Renetta RPA Unavailable Unavailable Pantoja, L Renetta RPA Unavailable Unavailable Pantoja, L Renetta RPA Unavailable Unavailable Pantoja, L Renetta RPA Unavailable Unavailable Pantoja, L Renetta RPA Unavailable Unavailable Pantoja, L Renetta RPA Unavailable Unavailable Pantoja, L Renetta RPA Unavailable Unavailable Pantoja, L Renetta RPA Unavailable Unavailable Pantoja, L Renetta RPA Unavailable Unavailable Pantoja, L Renetta RPA Unavailable Unavailable Pantoja, L Renetta RPA Unavailable Unavailable Pantoja, L Renetta RPA Unavailable Unavailable Pantoja, L Renetta RPA Unavailable Unavailable Pantoja, L Renetta RPA Unavailable Unavailable Pantoja, L Renetta RPA Unavailable Unavailable Pantoja, L Renetta RPA Unavailable Unavailable Pantoja, L Renetta RPA Unavailable Unavailable Pantoja, L Renetta RPA Unavailable Unavailable Pantoja, L Renetta RPA Unavailable Unavailable Pantoja, L Renetta RPA Unavailable Unavailable Pantoja, L Renetta RPA Unavailable Unavailable Re-disclosure Warning The records that you are about to access may contain information from federally-assisted alcohol or drug abuse programs. If such information is present, then the following federally mandated warning applies: This information has been disclosed to you from records protected by federal confidentiality rules (42 CFR part 2). The federal rules prohibit you from making any further disclosure of this information unless further disclosure is expressly permitted by the written consent of the person to whom it pertains or as otherwise permitted by 42 CFR part 2. A general authorization for the release of medical or other information is NOT sufficient for this purpose. The Federal rules restrict any use of the information to criminally investigate or prosecute any alcohol or drug abuse patient.The records that you are about to access may contain highly sensitive health information, the redisclosure of which is protected by Article 27-F of the [facility] Public Health law. If you continue you may have access to information: Regarding HIV / AIDS; Provided by facilities licensed or operated by the [facility] Office of Mental Health; or Provided by the [facility] Office for People With Developmental Disabilities. If such information is present, then the following [facility] mandated warning applies: This information has been disclosed to you from confidential records which are protected by state law. State law prohibits you from making any further disclosure of this information without the specific written consent of the person to whom it pertains, or as otherwise permitted by law. Any unauthorized further disclosure in violation of state law may result in a fine or long-term sentence or both. A general authorization for the release of medical or other information is NOT sufficient authorization for further disc losure. Family History Family Member Name Family Member Gender Family Member Status Date o f Status Description Data Source(s) Unknown Male Problem MEDENT ([facility] Encounters Encounter Providers Location Date Indications Data Source(s ) ([id number]) For [place] [address] 03/21/2020 12:00:00 AM EST eCW1 ([facility]) ([id number]) [place] [address] [place], [place] [id number] 03/07/2020 12:00:00 AM EST eCW1 ([facility]) Outpatient Attender: SIRENA BALL MD Main Office 03/05/2020 01:30:00 PM EST MEDENT ([facility]) ([id number]) [place] [address] [place], [place] [id number] 02/29/2020 12:00:00 AM EST eCW1 ([facility]) ([id number]) [place] [address] [place], [place] [id number] 02/22/2020 12:00:00 AM EST eCW1 ([facility]) ([id number]) For [place] [address] [place], [place] [id number] 02/08/2020 12:00:00 AM EST eCW1 ([facility]) Unknown [address] [facility] [address] 02/05/2020 12:00:00 AM EST eCW1 ([facility]) ([id number]) For [place] [address] [place] [address] 02/01/2020 12:00:00 AM EST eCW1 ([facility]) Office Visit, Est Pt., Level 3 PC [address] 01/25/2020 12:00:00 AM EST eCW1 ([facility]) Outpatient [facility] [address] 01/18/2020 12:00:00 AM EDT eCW1 ([facility]) (WND [id number]) New Patient 120 [address] [place] [address] 01/11/2020 12:00:00 AM EDT eCW1 ([facility]) Outpatient Attender: Renetta Pantoja RPA [place] 12/11/2019 01:15:00 PM EDT MEDENT ([facility], ) Outpatient Attender: Renetta Pantoja RPA [place] 12/06/2019 11:00:00 AM EDT MEDENT ([facility], ) Outpatient 008 10/24/2019 10:18:00 AM EDT - 10/24/2019 10:18:00 AM EDT Lab test [facility] Lab test Medications Medication Brand Name Start Date Product Form Dose Route Admi nistrative Instructions Pharmacy Instructions Status Indications Reaction Description Data Source(s) icosapent ethyl 1000 MG Oral Capsule [Vascepa] Vascepa 03/05/2020 12:00:00 AM EST ORAL active MEDENT ([facility] Rosuvastatin calcium 20 MG Oral Tablet [Crestor] Crestor 03/04/2020 12:00:00 AM EST ORAL active MEDENT ([facility]) Allopurinol 100 MG Oral Tablet Allopurinol 03/04/2020 12:00:00 AM EST ORAL active MEDENT ([facility]) rivaroxaban 20 MG Oral Tablet [Xarelto] Xarelto 03/04/2020 12:00:0 0 AM EST ORAL active MEDENT ([facility]) Metoprolol Tartrate 50 MG Oral Tablet Metoprolol Tartrate 12:00:00 AM EST ORAL active MEDENT ([facility]) sennosides, NURSING HOME 8.6 MG Oral Tablet Senna-Lax 03/04/2020 12:00:00 AM EST ORAL active MEDENT ([facility]) insulin detemir 100 UNT/ML Injectable Solution [Levemir] Lev kaley 03/04/2020 12:00:00 AM EST SUBCUTANEOUS active MEDENT ([facility]) Acetaminophen 500 MG Oral Tablet Acetaminophen Extra Strengt h 03/04/2020 12:00:00 AM EST ORAL active M EDENT ([facility]) Antifungal 03/04/2020 12:00:00 AM EST active MEDENT ([facility]) Metformin hydrochloride 500 MG Oral Tablet Metformin HCL 03/04/2020 12:00:00 AM EST ORAL active MEDENT ([facility]) ropinirole 0.25 MG Oral Tablet Ropinirole HCL 03/04/2020 12:00:00 AM EST ORAL active MEDENT ([facility]) Cholecalciferol 1000 UNT Oral Tablet Vitamin D (Cholecalcife rol) 03/04/2020 12:00:00 AM EST ORAL active M EDENT ([facility]) latanoprost 0.05 MG/ML Ophthalmic Solution Latanoprost 03/04/2020 12:00:00 AM EST OPHTHALMIC active MEDENT ([facility]) Furosemide 40 MG Oral Tablet Furosemide 03/04/2020 12:00:00 AM EST ORAL active MEDENT ([facility]) Glucagon 1 MG Injection Glucagon Emergency 03/04/2020 12:00:00 AM EST active MEDENT ([facility]) Sertraline 50 MG Oral Tablet Sertraline HCL 03/04/2020 12:00:00 AM EST ORAL active MEDENT ([facility]) Magnesium Hydroxide 80 MG/ML Oral Suspension Milk Of Magnesi a 03/04/2020 12:00:00 AM EST ORAL active M EDENT ([facility]) Aspirin 81 MG Delayed Release Oral Tablet Aspirin 03/04/2020 1 2:00:00 AM EST ORAL active MEDENT ([facility]) sitagliptin 50 MG Oral Tablet [Januvia] Januvia 03/04/2020 12:00:0 0 AM EST ORAL active MEDENT ([facility]) Omeprazole 20 MG Delayed Release Oral Capsule Omeprazole 03/04/2020 12:00:00 AM EST ORAL active MEDENT ([facility]) ferrous sulfate 325 MG Oral Tablet Iron 03/04/2020 12:00:00 AM EST ORAL active MEDENT ([facility]) Bisacodyl 10 MG Rectal Suppository Bisacodyl 03/04/2020 12:00:00 AM EST active MEDENT ([facility]) Sodium Phosphate, Dibasic 35.5 MG/ML / S odium Phosphate, Monobasic 96.4 MG/ML Enema Enema Disposable 03/04/2020 12:00:00 AM EST active MEDENT ([facility]) Insurance Providers Payer name Policy type / Coverage type Policy ID Covered green party ID Covered green party's relationship to [place] Policy [place] Plan Information EMEDNY [id number] SP [id number] MEDICARE [id number] SP [id number] [id number] MEDICARE C [id number] S [id number] N16 MEDICAID M [id number] MEDICARE C [id number] S [id number] A [facility] 010/510 [id number] SP [id number] IAIN [id number] SP [id number] MEDICARE [id number] SP [id number] A MEDICAID [id number] SP [id number] MEDICARE [id number] SP [id number] A Iain Care Commercial [id number] Self [id number] Medicaid Medigap Part B [id number] Self [id number] [id number] Medicare Part B Medicare Primary [id number] Self [id number] I[place] Care Commercial [id number] Self [id number] Medicaid Medigap Part B [id number] Self [id number] 65A Medicare Part B Medicare Primary [id number] Self [id number] MEDICAID [id number] Marylou [id number] MEDICARE [id number] Marylou [id number] A MEDICAID M [id number] Self [id number] MEDICARE A [id number] Self [id number] A Medicaid Medigap Part B [id number] Self [id number] 65A [place] Care Commercial [id number] Self [id number] Medicare Part B Medicare Primary [id number] Self [id number] MEDICAID PI PI MEDICARE PI PI Medicaid Medigap Part B [id number] Self [id number] 65A [place] Care Commercial [id number] Self [id number] Medicare Part B Medicare Primary [id number] Self [id number] IAIN [id number] SP [id number] MEDICARE [id number] SP [id number] A IAIN [facility] O [id number] S [id number] MEDICARE - [place] MCR [id number] S [id number] MEDICAID [id number] SP [id number] MEDICARE [id number] SP [id number] A Medicaid Medigap Part B [id number] Self [id number] 67A Medicare (Part B) Medicare Primary [id number] Self [id number] IAIN [place] [id number] SP [id number] IAIN 7 SP 7 Medicaid [place] Self Medicare (Part B) Medicare Primary Self Medicaid Medigap Part B Self MEDICAID -O/P [id number] MEDICARE PART A-O/P [id number] 18 [id number] MEDICAID - O/P EMERGENCY ROOM [id number] MEDICARE [id number] S [id number] A MEDICAID [id number] S [id number] MCRB [id number] S [id number] A Medicare Medicare Primary Self MEDICAID -RECURRING [id number] MEDICARE -RECURRING [id number] 18 [id number] MEDICARE PART A -RECURRING [id number] 18 [id number] MEDICAID JUDY [id number] S [id number] COMMERCIAL GENERIC U [id number] Self [id number] MEDICAID-SNF [id number] MEDICARE PART A-SNF [id number] 18 [id number] [facility] O [id number] S [id number] SELFPAY 5 UNAVAILABLE 1 UNAVAILA BLE MEDICAID 3 [id number] MEDICARE 4 [id number] 1 [id number] A MEDICAID-I/P [id number] MEDICARE PART A-I/P [id number] 18 [id number] Problems, Conditions, and Diagnoses Code Display Name Description Problem Type Effective Dates Data Source(s) 959002859 Dyspnea Dyspnea Problem 03/05/2020 12:00:00 AM ES T MARIUSZ ([facility]) [id number] Preoperative cardiovascular examination Preoperative cardiovascular examination Problem 03/05/2020 12:00:00 AM EST MEDDEBRA ([facility]) [id number] Permanent atrial fibrillation Permanent atrial fibrill ation Problem 03/05/2020 12:00:00 AM EST MEDENT ([facility]) L97.822 [id number] Non-pressure chronic ulcer of other part of left lower leg with fat layer exposed Problem 01/11/2020 12:00:00 AM EDT eCW1 ([facility]) I70.248 [id number] 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 Problem 01/11/2020 12:00:00 AM EDT eCW1 ([facility]) Z5189 Encounter for other specified aftercare Encounter for other specified aftercare Diagnosis 10/24/2019 10:18:00 AM EDT [facility] Surgeries/Procedures Procedure Description Date Indications Data Source(s) FINE NEEDLE ASPIRATION W/O IMAGING GUIDANCE 03/21/2020 12:00:00 AM EST eCW1 ([facility]) FINE NEEDLE ASPIRATION W/O IMAGING GUIDANCE 03/07/2020 12:00:00 AM EST eCW1 ([facility]) ECG ROUTINE ECG W/LEAST 12 LDS W/I&R 03/05/2020 12:00: 00 AM EST MEDENT ([facility]) FINE NEEDLE ASPIRATION W/O IMAGING GUIDANCE 02/29/2020 12:00:00 AM EST eCW1 ([facility]) FINE NEEDLE ASPIRATION W/O IMAGING GUIDANCE 02/22/2020 12:00:00 AM EST eCW1 ([facility]) FINE NEEDLE ASPIRATION W/O IMAGING GUIDANCE 02/08/2020 12:00:00 AM EST eCW1 ([facility]) FINE NEEDLE ASPIRATION W/O IMAGING GUIDANCE 02/01/2020 12:00:00 AM EST eCW1 ([facility]) FINE NEEDLE ASPIRATION W/O IMAGING GUIDANCE 01/25/2020 12:00:00 AM EST eCW1 ([facility]) FINE NEEDLE ASPIRATION W/O IMAGING GUIDANCE 01/18/2020 12:00:00 AM EDT eCW1 ([facility]) FINE NEEDLE ASPIRATION W/O IMAGING GUIDANCE 01/11/2020 12:00:00 AM EDT eCW1 ([facility]) Results ID Date Data Source [id number] 03/29/2020 11:00:00 AM EST [facility] Name Value Range Interpretation Code Description Data Isatu rce(s) Supporting Document(s) SARS coronavirus 2 RNA Not Detected [facility] [place] This lab was ordered by [facility] and reported by [facility]. ID Date Data Source [id number] 03/27/2020 04:03:00 PM EST [facility] Name Value Range Interpretation Code Description Data Isatu rce(s) Supporting Document(s) SARS coronavirus 2 RNA [Presence] in Res piratory specimen by FRANCISCO with probe detection NEGATIVE [facility] This lab was ordered by [facility] a nd reported by [facility]. ID Date Data Source [id number] 03/21/2020 01:58:00 PM EST [facility] Name Value Range Interpretation Code Description Data Isatu rce(s) Supporting Document(s) SARS coronavirus 2 RNA [Presence] in Res piratory specimen by FRANCISCO with probe detection [facility] This lab was ordered by [facility] a nd reported by [facility]. ID Date Data Source [id number] 03/19/2020 10:15:00 AM EST [facility] Name Value Range Interpretation Code Description Data Isatu rce(s) Supporting Document(s) SARS coronavirus 2 RNA [facility] This lab was ordered by [facility] and reported by [facility]. ID Date Data Source [id number] 03/13/2020 11:00:00 AM EST [facility] Name Value Range Interpretation Code Description Data Isatu rce(s) Supporting Document(s) SARS coronavirus 2 RNA [facility] This lab was ordered by [facility] and reported by [facility]. ID Date Data Source [id number] 03/07/2020 10:20:00 AM EST [facility] Name Value Range Interpretation Code Description Data Isatu rce(s) Supporting Document(s) SARS coronavirus 2 RNA [facility] This lab was ordered by [facility] and reported by [facility]. ID Date Data Source [id number] 03/04/2020 03:42:00 PM EST MEDENT ([facility]) Name Value Range Interpretation Code Description Data Isatu rce(s) Supporting Document(s) Platelets 318 172-450 [facility] ([facility] White Blood Count 8.3 4.0-10.0 MEDENT ([facility]) Red Blood Count 4.34 4.00-5.40 MED[facility] ([facility]) Hematocrit 39.2 [facility] Hemoglobin 11.6 [facility]) ID Date Data Source [id number] 03/04/2020 03:42:00 PM EST MEDENT ([facility]) Name Value Range Interpretation Code Description Data Isatu rce(s) Supporting Document(s) Glucose 173 70-100 [facility] ([facility] Sodium 141 136-145 [facility] Creatinine 0.93 0.6-1.0 MEDENT ([facility]) Blood Urea Nitrogen 16 7-18 MED[facility] ([facility]) Carbon Dioxide 28 21-32 MED[facility] ([facility]) Potassium 3.9 3.5-5.1 [facility] ([facility] Chloride 104 98-107 [facility] ([facility] Calcium 8.9 8.2-9.6 MED[facility] ([facility] Glomerular filtration rate/1.73 sq M.pre dicted [Volume Rate/Area] in Serum or Plasma by Creatinine-based formula (MDRD) Laboratory test result MEDENT ([facility]) ID Date Data Source [id number] 03/03/2020 01:52:00 PM EST [facility] Name Value Range Interpretation Code Description Data Isatu rce(s) Supporting Document(s) SARS coronavirus 2 RNA [facility] This lab was ordered by [facility] and reported by [facility]. ID Date Data Source [id number] 02/14/2020 12:00:00 PM EST [facility] Name Value Range Interpretation Code Description Data Isatu rce(s) Supporting Document(s) SARS coronavirus 2 RNA [facility] This lab was ordered by [facility] and reported by [facility]. ID Date Data Source [id number] 02/08/2020 12:00:00 PM EST [facility] Name Value Range Interpretation Code Description Data Isatu rce(s) Supporting Document(s) SARS coronavirus 2 RNA [facility] This lab was ordered by [facility] and reported by [facility]. ID Date Data Source [id number] 02/01/2020 02:30:00 PM EST [facility] Name Value Range Interpretation Code Description Data Isatu rce(s) Supporting Document(s) SARS coronavirus 2 RNA [facility] This lab was ordered by [facility] and reported by [facility]. ID Date Data Source [id number] 01/16/2020 03:39:00 PM EDT MEDENT ([facility]) Name Value Range Interpretation Code Description Data Isatu rce(s) Supporting Document(s) Triglycerides 214 [facility] ([facility]) HDL 35 [facility] Cholesterol 126 MED[facility] ([facility]) Chol/HDL Ratio 3.600 MEDENT ([facility]) Cholesterol in LDL [Mass/volume] in Serum or Plasma by calculation 48 MEDENT ([facility]) ID Date Data Source [id number] 01/09/2020 09:30:00 AM EDT MEDENT ([facility]) Name Value Range Interpretation Code Description Data Isatu rce(s) Supporting Document(s) Bedside Glucose 241 mg/dL 80-115 MEDENT ([facility]) ID Date Data Source [id number] 01/05/2020 11:45:00 AM EDT [facility] Name Value Range Interpretation Code Description Data Isatu rce(s) Supporting Document(s) SARS coronavirus 2 RNA [facility] This lab was ordered by [facility] and reported by [facility]. ID Date Data Source [id number] 10/23/2019 08:29:00 AM EDT [facility] Name Value Range Interpretation Code Description Data Isatu rce(s) Supporting Document(s) BASIC METABOLIC PANEL [facility] BASIC METABOLIC PANEL Sodium [Moles/volume] in Serum or Plasma 137 mEq/L 136 - 145 [facility] Potassium [Moles/volume] in Serum or Plasma 5.1 mEq/L 3.5 - 5.1 [facility] Chloride [Moles/volume] in Serum or Plasma 100 mEq/L 98 - 107 [facility] Carbon dioxide, total [Moles/volume] in Serum or Plasma 23.5 mEq /L 21.0 - 32.0 [facility] Glucose [Mass/volume] in Serum or Plasma 247 mg/dL 70 - 100 Above high normal [facility] Urea nitrogen [Mass/volume] in Serum or Plasma 23 mg/dL 7 - 18 Above high normal [facility] [facility] CREATININE SERUM 0.96 mg/dL 0.55 - 1.02 [facility] AGE 69 yrs [facility] l eGFR NON-AFR AMR 58 [facility] eGFR AFR AMR >60 [facility] BUN/CREAT 24 6 - 25 [facility] l Calcium [Mass/volume] in Serum or Plasma 9.0 mg/dL 8.8 - 10.2 [facility] ANION GAP 14 7 - 15 [facility] Estimated GFR reference r marcos: > 60 mL/min/1.73m >18 years: Calculated using IDMS traceable MDRD Study Equation <18 years: Calculated using IDMS traceable Bedside Mcdonlad Equation ID Date Data Source [id number] 08/08/2019 03:10:00 PM EDT [facility] Name Value Range Interpretation Code Description Data Isatu rce(s) Supporting Document(s) SARS CORONAVIRUS 2 RNA [facility] This lab was ordered by [facility] and reported by [facility]. Procedure Social History Code Duration Value Status Description Data Source(s ) Smoking 03/21/2020 12:00:00 AM EST UNK completed eCW1 ([facility]) Smoking 03/07/2020 12:00:00 AM EST UNK completed eCW1 ([facility]) Smoking 03/05/2020 12:00:00 AM EST Patient is a former smoker completed Patient is a former smoker MEDENT ([facility]) Smoking 02/29/2020 12:00:00 AM EST UNK completed eCW1 ([facility]) Smoking 02/27/2020 12:00:00 AM EST UNK completed eCW1 ([facility]) Smoking 02/08/2020 12:00:00 AM EST UNK completed eCW1 ([facility]) Smoking 02/08/2020 12:00:00 AM EST UNK completed eCW1 ([facility]) Smoking 02/08/2020 12:00:00 AM EST UNK completed eCW1 ([facility]) Smoking 02/01/2020 12:00:00 AM EST UNK completed eCW1 ([facility]) Smoking 01/25/2020 12:00:00 AM EST UNK completed eCW1 ([facility]) Smoking 01/18/2020 12:00:00 AM EDT UNK completed eCW1 ([facility]) Vital Signs ID Date Data Source UNK Name Value Range Interpretation Code Description Data Source(s) Diastolic blood pressure mm[Hg] eCW1 ([facility]) Systolic blood pressure 128 mm[Hg] 128 mm[Hg] e CW1 ([facility]) Body temperature 97.5 [degF] 97.5 [degF] eCW1 ( [facility]) Respiratory rate 19 /min 19 /min eCW1 ([facility]) Heart rate 78 /min 78 /min eCW1 ([facility]) Body mass index (BMI) [Ratio] 43.45 kg/m2 43.45 kg/m2 eCW1 ([facility]) Body height 59.5 [in_i] 59.5 [in_i] eCW1 ([facility]) Body weight kg eCW1 ([facility]) Body weight 218.8 [lb_av] 218.8 [lb_av] eCW1 ([facility]) Body temperature 96.4 [degF] 96.4 [degF] eCW1 ( [facility]) Respiratory rate 20 /min 20 /min eCW1 ([facility]) Heart rate 75 /min 75 /min eCW1 ([facility]) Body mass index (BMI) [Ratio] 43.45 kg/m2 43.45 kg/m2 eCW1 ([facility]) Body height 59.5 [in_i] 59.5 [in_i] eCW1 ([facility]) Body weight 218.8 [lb_av] 218.8 [lb_av] eCW1 ([facility]) Body height 59 [in_i] 59 [in_i] MEDENT ([facility]) 4'11" Diastolic blood pressure--sitting 75 mm[Hg] 75 mm[Hg] MEDENT ([facility]) [place], left forearm (per pateint request ) Systolic blood pressure--sitting 154 mm[Hg] 154 mm[Hg] MEDENT ([facility]) [place], left forearm (per pateint request ) Heart rate 75 /min 75 /min MEDENT ([facility]) Diastolic blood pressure 84 mm[Hg] 84 mm[Hg] eCW1 ([facility]) Systolic blood pressure 177 mm[Hg] 177 mm[Hg] e CW1 ([facility]) Body temperature 96.6 [degF] 96.6 [degF] eCW1 ( [facility]) Respiratory rate 20 /min 20 /min eCW1 ([facility]) Heart rate 80 /min 80 /min eCW1 ([facility]) Body mass index (BMI) [Ratio] 42.89 kg/m2 42.89 kg/m2 eCW1 ([facility]) Body height 59.5 [in_i] 59.5 [in_i] eCW1 ([facility]) Body weight kg eCW1 ([facility]) Body weight 216 [lb_av] 216 [lb_av] eCW1 ([facility]) Heart rate 70 /min 70 /min eCW1 ([facility]) Body mass index (BMI) [Ratio] 42.89 kg/m2 42.89 kg/m2 eCW1 ([facility]) Body height 59.5 [in_i] 59.5 [in_i] eCW1 ([facility]) Body weight kg eCW1 ([facility]) Body weight 216 [lb_av] 216 [lb_av] eCW1 ([facility]) Diastolic blood pressure 83 mm[Hg] 83 mm[Hg] eCW1 ([facility]) Systolic blood pressure 145 mm[Hg] 145 mm[Hg] e CW1 ([facility]) Body temperature 97.3 [degF] 97.3 [degF] eCW1 ( [facility]) Respiratory rate 18 /min 18 /min eCW1 ([facility]) Diastolic blood pressure 91 mm[Hg] 91 mm[Hg] eCW1 ([facility]) Systolic blood pressure 218 mm[Hg] 218 mm[Hg] e CW1 ([facility]) Body temperature 98.3 [degF] 98.3 [degF] eCW1 ( [facility]) Respiratory rate 19 /min 19 /min eCW1 ([facility]) Heart rate 84 /min 84 /min eCW1 ([facility]) Body mass index (BMI) [Ratio] 42.89 kg/m2 42.89 kg/m2 W1 ([facility]) Body height 59.5 [in_i] 59.5 [in_i] eCW1 ([facility]) Body weight kg eCW1 ([facility]) Body weight 216 [lb_av] 216 [lb_av] eCW1 ([facility]) Diastolic blood pressure 88 mm[Hg] 88 mm[Hg] eCW1 ([facility]) Systolic blood pressure 126 mm[Hg] 126 mm[Hg] e CW1 ([facility]) Body temperature 98.8 [degF] 98.8 [degF] eCW1 ( [facility]) Respiratory rate 18 /min 18 /min eCW1 ([facility]) Heart rate 68 /min 68 /min eCW1 ([facility]) Body mass index (BMI) [Ratio] 42.89 kg/m2 42.89 kg/m2 eCW1 ([facility]) Body height 59.5 [in_i] 59.5 [in_i] eCW1 ([facility]) Body weight kg eCW1 ([facility]) Body weight 216 [lb_av] 216 [lb_av] eCW1 ([facility]) Diastolic blood pressure 70 mm[Hg] 70 mm[Hg] eCW1 ([facility]) Systolic blood pressure 157 mm[Hg] 157 mm[Hg] e CW1 ([facility]) Body temperature 97.4 [degF] 97.4 [degF] eCW1 ( [facility]) Respiratory rate 18 /min 18 /min eCW1 ([facility]) Heart rate 68 /min 68 /min eCW1 ([facility]) Body mass index (BMI) [Ratio] 42.89 kg/m2 42.89 kg/m2 eCW1 ([facility]) Body height 59.5 [in_i] 59.5 [in_i] eCW1 ([facility]) Body weight 216 [lb_av] 216 [lb_av] eCW1 ([facility]) Diastolic blood pressure mm[Hg] eCW1 ([facility]) Systolic blood pressure 130 mm[Hg] 130 mm[Hg] e CW1 ([facility]) Body temperature 95.1 [degF] 95.1 [degF] eCW1 ( [facility]) Respiratory rate 19 /min 19 /min eCW1 ([facility]) Heart rate 87 /min 87 /min eCW1 ([facility]) Body mass index (BMI) [Ratio] 42.89 kg/m2 42.89 kg/m2 eCW1 ([facility]) Body height 59.5 [in_i] 59.5 [in_i] eCW1 ([facility]) Body weight kg eCW1 ([facility]) Body weight 216 [lb_av] 216 [lb_av] eCW1 ([facility]) Body weight 98.431 kg 98.431 kg MEDENT ([facility], ) [place] body weight 100 [lb_av] 100 [lb_av] MEDEN T ([facility], ) Body mass index (BMI) [Ratio] 43.8 kg/m2 43.8 k g/m2 MEDENT ([facility], ) Body weight 217.00 [lb_av] 217.00 [lb_av] MEDEN T ([facility], ) [place] Body height 59 [in_i] 59 [in_i] MEDENT ([facility] [place]) " Diastolic blood pressure 92 mm[Hg] 92 mm[Hg] [facility] Systolic blood pressure 167 mm[Hg] 167 mm[Hg] M EDENT ([facility]) Body temperature 97 [degF] 97 [degF] eCW1 ([facility]) Respiratory rate 22 /min 22 /min eCW1 ([facility]) Heart rate 80 /min 80 /min eCW1 ([facility]) Body mass index (BMI) [Ratio] 42.89 kg/m2 42.89 kg/m2 eCW1 ([facility]) Body height 59.5 [in_i] 59.5 [in_i] eCW1 ([facility]) Body weight 216 [lb_av] 216 [lb_av] eCW1 ([facility]) Body weight 98.488 kg 98.488 kg [facility] [place]) [place] body weight 100 [lb_av] 100 [lb_av] MEDEN T ([facility]) Body mass index (BMI) [Ratio] 43.8 kg/m2 43.8 k g/m2 [facility] ([facility]) Body weight 217.12 [lb_av] 217.12 [lb_av] MEDEN T ([facility]) Body height 59 [in_i] 59 [in_i] MEDENT ([facility] [place]) " Body weight 98.431 kg 98.431 kg [facility] ([facility] [place]) Body mass index (BMI) [Ratio] 43.8 kg/m2 43.8 k g/m2 [facility] ([facility]) Body weight 217.00 [lb_av] 217.00 [lb_av] MEDEN T ([facility]) stated wheelchair Body height 59 [in_i] 59 [in_i] MEDENT ([facility]) 4'11" Diastolic blood pressure 82 mm[Hg] 82 mm[Hg] MARIUSZ ([facility], ) Systolic blood pressure 118 mm[Hg] 118 mm[Hg] Shane KWAN ([facility], )
--- OUTSIDE RECORDS SUMMARY | 2020-04-02 10:50 | CCD ---
Author Author [facility] Organization [facility] Address Unknown Phone Unavailable Care Team Providers Care Carpenter Helper Maintenance Name Role Phone Enmanuel BALL MD Unavailable [...] is protected by Article 27-F of the [facility] Public Health law. If you continue you may have access to information: Regarding HIV / AIDS; Provided by facilities licensed or operated by the [facility] Office of Mental Health; or Provided by the [facility] Office for People With Developmental Disabilities. If such information is present, then the following [facility] mandated warning applies: This information has been [...] law may result in a fine or chcf sentence or both. A general authorization for the release of medical or other information is NOT sufficient authorization for further disc losure. Family History Family Member Name Family Member Gender Family Member Status Date o f Status Description Data Source(s) Unknown Male Problem MEDENT ([facility] Encounters Encounter Providers Location Date Indications Data Source(s ) ([id number]) For [place] [address] 03/21/2020 12:00:00 AM EST eCW1 ([facility]) ([id number]) For [place] [address] [place] [id number] 03/07/2020 12:00:00 AM EST eCW1 ([facility]) Outpatient Attender: SIRENA BALL MD Main Office 03/05/2020 01:30:00 PM EST MEDENT ([facility]) ([id number]) For [place] [address] [place], [place] [id number] 02/29/2020 12:00:00 AM EST eCW1 ([facility]) ([id number]) [place] [address] [place] [id number] 02/22/2020 12:00:00 AM EST eCW1 ([facility]) ([id number]) For [place] [address] [place], [place] [id number] 02/08/2020 12:00:00 AM EST eCW1 ([facility]) Unknown [address] [facility] [address] 02/05/2020 12:00:00 AM EST eCW1 ([facility]) ([id number]) For [place] [address] [place] [address] 02/01/2020 12:00:00 AM EST eCW1 ([facility]) Office Visit, Est Pt., Level 3 PC [address] 01/25/2020 12:00:00 AM EST eCW1 ([facility]) Outpatient [facility] [facility] [address] 01/18/2020 12:00:00 AM EDT eCW1 ([facility]) (WND [id number]) New Patient 120 Min [address] [place] [address] 01/11/2020 12:00:00 AM EDT eCW1 ([facility]) Outpatient Attender: Renetta Pantoja RPA [place] 12/11/2019 01:15:00 PM EDT MEDENT ([facility], ) Outpatient Attender: Renetta Pantoja RPA [place] 12/06/2019 11:00:00 AM EDT MEDENT ([facility], ) Outpatient 008 10/24/2019 10:18:00 AM EDT - 10/24/2019 10:18:00 AM EDT Lab test [facility] Lab test Medications Medication Brand Name Start Date Product Form Dose Route Admi nistrative Instructions Pharmacy Instructions Status Indications Reaction Description Data Source(s) icosapent ethyl 1000 MG Oral Capsule [Vascepa] Vascepa 03/05/2020 12:00:00 AM EST ORAL active MEDENT ([facility] Rosuvastatin calcium 20 MG Oral Tablet [Crestor] Crestor 03/04/2020 12:00:00 AM EST ORAL active MEDENT ([facility]) Allopurinol 100 MG Oral Tablet Allopurinol 03/04/2020 12:00:00 AM EST ORAL active MEDENT ([facility]) rivaroxaban 20 MG Oral Tablet [Xarelto] Xarelto 03/04/2020 12:00:0 0 AM EST ORAL active MEDENT ([facility]) Metoprolol Tartrate 50 MG Oral Tablet Metoprolol Tartrate 12:00:00 AM EST ORAL active MEDENT ([facility]) sennosides, FDC 8.6 MG Oral Tablet Senna-Lax 03/04/2020 12:00:00 AM EST ORAL active MEDENT ([facility]) insulin detemir 100 UNT/ML Injectable Solution [Levemir] Lev kaley 03/04/2020 12:00:00 AM EST SUBCUTANEOUS active MEDENT ([facility]) Acetaminophen 500 MG Oral Tablet Acetaminophen Extra Strengt h 03/04/2020 12:00:00 AM EST ORAL active M EDENT ([facility]) Antifungal 03/04/2020 12:00:00 AM EST active MEDENT ([facility]) Metformin hydrochloride 500 MG Oral Tablet Metformin HCL 03/04/2020 12:00:00 AM EST ORAL active MEDENT ([facility]) ropinirole 0.25 MG Oral Tablet Ropinirole HCL 03/04/2020 12:00:00 AM EST ORAL active MEDENT ([facility]) Cholecalciferol 1000 UNT Oral Tablet Vitamin D (Cholecalcife rol) 03/04/2020 12:00:00 AM EST ORAL active M EDENT ([facility]) latanoprost 0.05 MG/ML Ophthalmic Solution Latanoprost 03/04/2020 12:00:00 AM EST OPHTHALMIC active MEDENT ([facility]) Furosemide 40 MG Oral Tablet Furosemide 03/04/2020 12:00:00 AM EST ORAL active MEDENT ([facility]) Glucagon 1 MG Injection Glucagon Emergency 03/04/2020 12:00:00 AM EST active MEDENT ([facility]) Sertraline 50 MG Oral Tablet Sertraline HCL 03/04/2020 12:00:00 AM EST ORAL active MEDENT ([facility]) Magnesium Hydroxide 80 MG/ML Oral Suspension Milk Of Magnesi a 03/04/2020 12:00:00 AM EST ORAL active M EDENT ([facility]) Aspirin 81 MG Delayed Release Oral Tablet Aspirin 03/04/2020 1 2:00:00 AM EST ORAL active MEDENT ([facility]) sitagliptin 50 MG Oral Tablet [Januvia] Januvia 03/04/2020 12:00:0 0 AM EST ORAL active MEDENT ([facility]) Omeprazole 20 MG Delayed Release Oral Capsule Omeprazole 03/04/2020 12:00:00 AM EST ORAL active MEDENT ([facility]) ferrous sulfate 325 MG Oral Tablet Iron 03/04/2020 12:00:00 AM EST ORAL active MEDENT ([facility]) Bisacodyl 10 MG Rectal Suppository Bisacodyl 03/04/2020 12:00:00 AM EST active MEDENT ([facility]) Sodium Phosphate, Dibasic 35.5 MG/ML / S odium Phosphate, Monobasic 96.4 MG/ML Enema Enema Disposable 03/04/2020 12:00:00 AM EST active MEDENT ([facility]) Insurance Providers Payer name Policy type / Coverage type Policy ID Covered green party ID Covered green party's relationship to [place] Policy [place] Plan Information EMEDNY [id number] SP [id number] MEDICARE [id number] SP [id number] MEDICARE C [id number] S [id number] N16 MEDICAID M [id number] S [id number] MEDICARE C [id number] S [id number] A [facility] 010/510 [id number] SP [id number] IAIN [id number] SP [id number] MEDICARE [id number] SP [id number] A MEDICAID [id number] SP [id number] MEDICARE [id number] SP [id number] A Iain Care Commercial [id number] Self [id number] Medicaid Medigap Part B [id number] Self [id number] Medicare Part B Medicare Primary [id number] Self [id number] Iain Care Commercial [id number] Self [id number] Medicaid Medigap Part B [id number] Self [id number] [id number] Medicare Part B Medicare Primary [id number] Self [id number] MEDICAID [id number] Marylou [id number] MEDICARE [id number] Marylou [id number] A MEDICAID M [id number] Self [id number] MEDICARE A [id number] Self [id number] A Medicaid Medigap Part B [id number] Self [id number] Balta Care Commercial [id number] Self [id number] Medicare Part B Medicare Primary [id number] Self [id number] MEDICAID PI PI MEDICARE PI PI Medicaid Medigap Part B [id number] Self [id number] 65A Balta Care Commercial [id number] Self [id number] Medicare Part B Medicare Primary [id number] Self [id number] IAIN [id number] SP [id number] MEDICARE [id number] SP [id number] A IAIN [facility] O [id number] S [id number] MEDICARE - [place] MCR [id number] S [id number] MEDICAID [id number] SP [id number] MEDICARE [id number] SP [id number] A Medicaid Medigap Part B [id number] Self [id number] 65A Medicare (Part B) Medicare Primary [id number] Self [id number] IAIN [place] [id number] SP [id number] IAIN 7 SP 7 Medicaid [place]ig[place] Part B [place] Self Medicare (Part B) Medicare Primary Self Medicaid Medigap Part B Self MEDICAID -O/P [id number] MEDICARE PART A-O/P [id number] 18 [id number] MEDICAID - O/P EMERGENCY ROOM [id number] MEDICARE [id number] S [id number] A MEDICAID [id number] S [id number] MCRB [id number] S [id number] A Medicare Medicare Primary Self MEDICAID -RECURRING [id number] MEDICARE -RECURRING [id number] 18 [id number] MEDICARE PART A -RECURRING [id number] 18 [id number] MEDICAID JUDY [id number] S [id number] COMMERCIAL GENERIC U [id number] Self [id number] MEDICAID-SNF [id number] MEDICARE PART A-SNF [id number] 18 [id number] [facility] O [id number] S [id number] SELFPAY 5 UNAVAILABLE 1 UNAVAILA BLE MEDICAID 3 [id number] MEDICARE 4 [id number] A MEDICAID-I/P [id number] 18 [id number] MEDICARE PART A-I/P [id number] 18 [id number] Problems, Conditions, and Diagnoses Code Display Name Description Problem Type Effective Dates Data Source(s) 989113595 Dyspnea Dyspnea Problem 03/05/2020 12:00:00 AM ES T MARIUSZ ([facility]) [id number] Preoperative cardiovascular examination Preoperative cardiovascular examination Problem 03/05/2020 12:00:00 AM EST MEDDEBRA ([facility]) [id number] Permanent atrial fibrillation Permanent atrial fibrill ation Problem 03/05/2020 12:00:00 AM EST MEDENT ([facility]) L97.822 [id number] Non-pressure chronic ulcer of other part of left lower leg with fat layer exposed Problem 01/11/2020 12:00:00 AM EDT eCW1 ([facility]) I70.248 [id number] 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 Problem 01/11/2020 12:00:00 AM EDT eCW1 ([facility]) Z5189 Encounter for other specified aftercare Encounter for other specified aftercare Diagnosis 10/24/2019 10:18:00 AM EDT [facility] Surgeries/Procedures Procedure Description Date Indications Data Source(s) FINE NEEDLE ASPIRATION W/O IMAGING GUIDANCE 03/21/2020 12:00:00 AM EST eCW1 ([facility]) FINE NEEDLE ASPIRATION W/O IMAGING GUIDANCE 03/07/2020 12:00:00 AM EST eCW1 ([facility]) ECG ROUTINE ECG W/LEAST 12 LDS W/I&R 03/05/2020 12:00: 00 AM EST MEDENT ([facility]) FINE NEEDLE ASPIRATION W/O IMAGING GUIDANCE 02/29/2020 12:00:00 AM EST eCW1 ([facility]) FINE NEEDLE ASPIRATION W/O IMAGING GUIDANCE 02/22/2020 12:00:00 AM EST eCW1 ([facility]) FINE NEEDLE ASPIRATION W/O IMAGING GUIDANCE 02/08/2020 12:00:00 AM EST eCW1 ([facility]) FINE NEEDLE ASPIRATION W/O IMAGING GUIDANCE 02/01/2020 12:00:00 AM EST eCW1 ([facility]) FINE NEEDLE ASPIRATION W/O IMAGING GUIDANCE 01/25/2020 12:00:00 AM EST eCW1 ([facility]) FINE NEEDLE ASPIRATION W/O IMAGING GUIDANCE 01/18/2020 12:00:00 AM EDT eCW1 ([facility]) FINE NEEDLE ASPIRATION W/O IMAGING GUIDANCE 01/11/2020 12:00:00 AM EDT eCW1 ([facility]) Results ID Date Data Source [id number] 03/29/2020 11:00:00 AM EST [facility] Name Value Range Interpretation Code Description Data Isatu rce(s) Supporting Document(s) SARS coronavirus 2 RNA Not Detected [facility] This lab was ordered by [facility] and reported by [facility]. ID Date Data Source [id number] 03/27/2020 04:03:00 PM EST [facility] Name Value Range Interpretation Code Description Data Isatu rce(s) Supporting Document(s) SARS coronavirus 2 RNA [Presence] in Res piratory specimen by FRANCISCO with probe detection NEGATIVE [facility] This lab was ordered by [facility] a nd reported by [facility]. ID Date Data Source [id number] 03/21/2020 01:58:00 PM EST [facility] Name Value Range Interpretation Code Description Data Isatu rce(s) Supporting Document(s) SARS coronavirus 2 RNA [Presence] in Res piratory specimen by [place]ANCISCO with probe detection [facility] This lab was ordered by [facility] a nd reported by [facility]. ID Date Data Source [id number] 03/19/2020 10:15:00 AM EST [facility] Name Value Range Interpretation Code Description Data Isatu rce(s) Supporting Document(s) SARS coronavirus 2 RNA [facility] This lab was ordered by [facility] and reported by [facility]. ID Date Data Source [id number] 03/13/2020 11:00:00 AM EST [facility] Name Value Range Interpretation Code Description Data Isatu rce(s) Supporting Document(s) SARS coronavirus 2 RNA [facility] This lab was ordered by [facility] and reported by [facility]. ID Date Data Source [id number] 03/07/2020 10:20:00 AM EST [facility] Name Value Range Interpretation Code Description Data Isatu rce(s) Supporting Document(s) SARS coronavirus 2 RNA [facility] This lab was ordered by [facility] and reported by [facility]. ID Date Data Source [id number] 03/04/2020 03:42:00 PM EST MEDENT ([facility]) Name Value Range Interpretation Code Description Data Isatu rce(s) Supporting Document(s) Platelets 318 172-450 MEDENT ([facility]) White Blood Count 8.3 4.0-10.0 MEDENT ([facility]) Red Blood Count 4.34 4.00-5.40 MEDENT ([facility]) Hematocrit 39.2 [facility] Hemoglobin 11.6 [facility] ([facility]) ID Date Data Source [id number] 03/04/2020 03:42:00 PM EST MEDENT ([facility]) Name Value Range Interpretation Code Description Data Isatu rce(s) Supporting Document(s) Glucose 173 70-100 MEDENT ([facility]) Sodium 141 136-145 MED[facility] ([facility]) Creatinine 0.93 0.6-1.0 MEDENT ([facility]) Blood Urea Nitrogen 16 7-18 MEDENT ([facility]) Carbon Dioxide 28 21-32 MEDENT ([facility]) Potassium 3.9 3.5-5.1 MEDENT ([facility]) Chloride 104 98-107 MEDENT ([facility]) Calcium 8.9 8.2-9.6 MEDENT ([facility]) Glomerular filtration rate/1.73 sq M.pre dicted [Volume Rate/Area] in Serum or Plasma by Creatinine-based formula (MDRD) Laboratory test result MEDENT ([facility]) ID Date Data Source [id number] 03/03/2020 01:52:00 PM EST [facility] Name Value Range Interpretation Code Description Data Isatu rce(s) Supporting Document(s) SARS coronavirus 2 RNA [facility] This lab was ordered by [facility] and reported by [facility]. ID Date Data Source [id number] 02/14/2020 12:00:00 PM EST [facility] Name Value Range Interpretation Code Description Data Isatu rce(s) Supporting Document(s) SARS coronavirus 2 RNA [facility] This lab was ordered by [facility] and reported by [facility]. ID Date Data Source [id number] 02/08/2020 12:00:00 PM EST [facility] Name Value Range Interpretation Code Description Data Isatu rce(s) Supporting Document(s) SARS coronavirus 2 RNA [facility] This lab was ordered by [facility] and reported by [facility]. ID Date Data Source [id number] 02/01/2020 02:30:00 PM EST [facility] Name Value Range Interpretation Code Description Data Isatu rce(s) Supporting Document(s) SARS coronavirus 2 RNA [facility] This lab was ordered by [facility] and reported by [facility]. ID Date Data Source [id number] 01/16/2020 03:39:00 PM EDT MEDENT ([facility]) Name Value Range Interpretation Code Description Data Isatu rce(s) Supporting Document(s) Triglycerides 214 MEDENT ([facility]) HDL 35 [facility] ([facility] Cholesterol 126 MEDENT ([facility]) Chol/HDL Ratio 3.600 MEDENT ([facility]) Cholesterol in LDL [Mass/volume] in Serum or Plasma by calculation 48 MEDENT ([facility]) ID Date Data Source [id number] 01/09/2020 09:30:00 AM EDT MEDENT ([facility]) Name Value Range Interpretation Code Description Data Isatu rce(s) Supporting Document(s) Bedside Glucose 241 mg/dL 80-115 MEDENT ([facility]) ID Date Data Source [id number] 01/05/2020 11:45:00 AM EDT [facility] Name Value Range Interpretation Code Description Data Isatu rce(s) Supporting Document(s) SARS coronavirus 2 RNA [facility] This lab was ordered by [facility] and reported by [facility]. ID Date Data Source [id number] 10/23/2019 08:29:00 AM EDT [facility] Name Value Range Interpretation Code Description Data Isatu rce(s) Supporting Document(s) BASIC METABOLIC PANEL [facility] BASIC METABOLIC PANEL Sodium [Moles/volume] in Serum or Plasma 137 mEq/L 136 - 145 [facility] Potassium [Moles/volume] in Serum or Plasma 5.1 mEq/L 3.5 - 5.1 [facility] Chloride [Moles/volume] in Serum or Plasma 100 mEq/L 98 - 107 [facility] Carbon dioxide, total [Moles/volume] in Serum or Plasma 23.5 mEq /L 21.0 - 32.0 [facility] Glucose [Mass/volume] in Serum or Plasma 247 mg/dL 70 - 100 Above high normal [facility] Urea nitrogen [Mass/volume] in Serum or Plasma 23 mg/dL 7 - 18 Above high normal [facility] CREATININE SERUM 0.96 mg/dL 0.55 - 1.02 [facility] AGE 69 yrs [facility] l eGFR NON-AFR AMR 58 [facility] eGFR AFR AMR >60 [facility] BUN/CREAT 24 6 - 25 [facility] l Calcium [Mass/volume] in Serum or Plasma 9.0 mg/dL 8.8 - 10.2 [facility] ANION GAP 14 7 - 15 [facility] Estimated GFR reference r marcos: > 60 mL/min/1.73m >18 years: Calculated using IDMS traceable MDRD Study Equation <18 years: Calculated using IDMS traceable Bedside Mcdonald Equation ID Date Data Source [id number] 08/08/2019 03:10:00 PM EDT [facility] Name Value Range Interpretation Code Description Data Isatu rce(s) Supporting Document(s) SARS CORONAVIRUS 2 RNA [facility] This lab was ordered by [facility] and reported by [facility]. Procedure Social History Code Duration Value Status Description Data Source(s ) Smoking 03/21/2020 12:00:00 AM EST UNK completed eCW1 ([facility]) Smoking 03/07/2020 12:00:00 AM EST UNK completed eCW1 ([facility]) Smoking 03/05/2020 12:00:00 AM EST Patient is a former smoker completed Patient is a former smoker MEDENT ([facility]) Smoking 02/29/2020 12:00:00 AM EST UNK completed eCW1 ([facility]) Smoking 02/27/2020 12:00:00 AM EST UNK completed eCW1 ([facility]) Smoking 02/08/2020 12:00:00 AM EST UNK completed eCW1 ([facility]) Smoking 02/08/2020 12:00:00 AM EST UNK completed eCW1 ([facility]) Smoking 02/08/2020 12:00:00 AM EST UNK completed eCW1 ([facility]) Smoking 02/01/2020 12:00:00 AM EST UNK completed eCW1 ([facility]) Smoking 01/25/2020 12:00:00 AM EST UNK completed eCW1 ([facility]) Smoking 01/18/2020 12:00:00 AM EDT UNK completed eCW1 ([facility]) Vital Signs ID Date Data Source UNK Name Value Range Interpretation Code Description Data Source(s) Diastolic blood pressure mm[Hg] eCW1 ([facility]) Systolic blood pressure 128 mm[Hg] 128 mm[Hg] e CW1 ([facility]) Body temperature 97.5 [degF] 97.5 [degF] eCW1 ( [facility]) Respiratory rate 19 /min 19 /min eCW1 ([facility]) Heart rate 78 /min 78 /min eCW1 ([facility]) Body mass index (BMI) [Ratio] 43.45 kg/m2 43.45 kg/m2 eCW1 ([facility]) Body height 59.5 [in_i] 59.5 [in_i] eCW1 ([facility]) Body weight kg eCW1 ([facility]) Body weight 218.8 [lb_av] 218.8 [lb_av] eCW1 ([facility]) Body temperature 96.4 [degF] 96.4 [degF] eCW1 ( [facility]) Respiratory rate 20 /min 20 /min eCW1 ([facility]) Heart rate 75 /min 75 /min eCW1 ([facility]) Body mass index (BMI) [Ratio] 43.45 kg/m2 43.45 kg/m2 eCW1 ([facility]) Body height 59.5 [in_i] 59.5 [in_i] eCW1 ([facility]) Body weight 218.8 [lb_av] 218.8 [lb_av] eCW1 ([facility]) Body height 59 [in_i] 59 [in_i] MEDENT ([facility]) 4'11" Diastolic blood pressure--sitting 75 mm[Hg] 75 mm[Hg] MEDENT ([facility]) Omron, left forearm (per pateint request ) Systolic blood pressure--sitting 154 mm[Hg] 154 mm[Hg] MEDENT ([facility]) Omron, left forearm (per pateint request ) Heart rate 75 /min 75 /min MEDENT ([facility]) Diastolic blood pressure 84 mm[Hg] 84 mm[Hg] eCW1 ([facility]) Systolic blood pressure 177 mm[Hg] 177 mm[Hg] e CW1 ([facility]) Body temperature 96.6 [degF] 96.6 [degF] eCW1 ( [facility]) Respiratory rate 20 /min 20 /min eCW1 ([facility]) Heart rate 80 /min 80 /min eCW1 ([facility]) Body mass index (BMI) [Ratio] 42.89 kg/m2 42.89 kg/m2 eCW1 ([facility]) Body height 59.5 [in_i] 59.5 [in_i] eCW1 ([facility]) Body weight kg eCW1 ([facility]) Body weight 216 [lb_av] 216 [lb_av] eCW1 ([facility]) Heart rate 70 /min 70 /min eCW1 ([facility]) Body mass index (BMI) [Ratio] 42.89 kg/m2 42.89 kg/m2 eCW1 ([facility]) Body height 59.5 [in_i] 59.5 [in_i] eCW1 ([facility]) Body weight kg eCW1 ([facility]) Body weight 216 [lb_av] 216 [lb_av] eCW1 ([facility]) Diastolic blood pressure 83 mm[Hg] 83 mm[Hg] eCW1 ([facility]) Systolic blood pressure 145 mm[Hg] 145 mm[Hg] e CW1 ([facility]) Body temperature 97.3 [degF] 97.3 [degF] eCW1 ( [facility]) Respiratory rate 18 /min 18 /min eCW1 ([facility]) Diastolic blood pressure 91 mm[Hg] 91 mm[Hg] eCW1 ([facility]) Systolic blood pressure 218 mm[Hg] 218 mm[Hg] e CW1 ([facility]) Body temperature 98.3 [degF] 98.3 [degF] eCW1 ( [facility]) Respiratory rate 19 /min 19 /min eCW1 ([facility]) Heart rate 84 /min 84 /min eCW1 ([facility]) Body mass index (BMI) [Ratio] 42.89 kg/m2 42.89 kg/m2 W1 ([facility]) Body height 59.5 [in_i] 59.5 [in_i] eCW1 ([facility]) Body weight kg eCW1 ([facility]) Body weight 216 [lb_av] 216 [lb_av] eCW1 ([facility]) Diastolic blood pressure 88 mm[Hg] 88 mm[Hg] eCW1 ([facility]) Systolic blood pressure 126 mm[Hg] 126 mm[Hg] e CW1 ([facility]) Body temperature 98.8 [degF] 98.8 [degF] eCW1 ( [facility]) Respiratory rate 18 /min 18 /min eCW1 ([facility]) Heart rate 68 /min 68 /min eCW1 ([facility]) Body mass index (BMI) [Ratio] 42.89 kg/m2 42.89 kg/m2 eCW1 ([facility]) Body height 59.5 [in_i] 59.5 [in_i] eCW1 ([facility]) Body weight kg eCW1 ([facility]) Body weight 216 [lb_av] 216 [lb_av] eCW1 ([facility]) Diastolic blood pressure 70 mm[Hg] 70 mm[Hg] eCW1 ([facility]) Systolic blood pressure 157 mm[Hg] 157 mm[Hg] e CW1 ([facility]) Body temperature 97.4 [degF] 97.4 [degF] eCW1 ( [facility]) Respiratory rate 18 /min 18 /min eCW1 ([facility]) Heart rate 68 /min 68 /min eCW1 ([facility]) Body mass index (BMI) [Ratio] 42.89 kg/m2 42.89 kg/m2 eCW1 ([facility]) Body height 59.5 [in_i] 59.5 [in_i] eCW1 ([facility]) Body weight 216 [lb_av] 216 [lb_av] eCW1 ([facility]) Diastolic blood pressure mm[Hg] eCW1 ([facility]) Systolic blood pressure 130 mm[Hg] 130 mm[Hg] e CW1 ([facility]) Body temperature 95.1 [degF] 95.1 [degF] eCW1 ( [facility]) Respiratory rate 19 /min 19 /min eCW1 ([facility]) Heart rate 87 /min 87 /min eCW1 ([facility]) Body mass index (BMI) [Ratio] 42.89 kg/m2 42.89 kg/m2 eCW1 ([facility]) Body height 59.5 [in_i] 59.5 [in_i] eCW1 ([facility]) Body weight kg eCW1 ([facility]) Body weight 216 [lb_av] 216 [lb_av] eCW1 ([facility]) Body weight 98.431 kg 98.431 kg MEDENT ([facility], ) [place] body weight 100 [lb_av] 100 [lb_av] MEDEN T ([facility], ) Body mass index (BMI) [Ratio] 43.8 kg/m2 43.8 k g/m2 MEDENT ([facility], ) Body weight 217.00 [lb_av] 217.00 [lb_av] MEDEN T ([facility], ) Stated Body height 59 [in_i] 59 [in_i] MEDENT ([facility]) " Diastolic blood pressure 92 mm[Hg] 92 mm[Hg] [facility] Systolic blood pressure 167 mm[Hg] 167 mm[Hg] M EDENT ([facility]) Body temperature 97 [degF] 97 [degF] eCW1 ([facility]) Respiratory rate 22 /min 22 /min eCW1 ([facility]) Heart rate 80 /min 80 /min eCW1 ([facility]) Body mass index (BMI) [Ratio] 42.89 kg/m2 42.89 kg/m2 eCW1 ([facility]) Body height 59.5 [in_i] 59.5 [in_i] eCW1 ([facility]) Body weight 216 [lb_av] 216 [lb_av] eCW1 ([facility]) Body weight 98.[address] [facility] ([facility]) [place] body weight 100 [lb_av] 100 [lb_av] MEDEN T ([facility]) Body mass index (BMI) [Ratio] 43.8 kg/m2 43.8 k g/m2 [facility] ([facility]) Body weight 217.12 [lb_av] 217.12 [lb_av] MEDEN T ([facility]) Body height 59 [in_i] 59 [in_i] MEDENT ([facility]) " Body weight 98.431 kg 98.431 kg [facility] ([facility]) Body mass index (BMI) [Ratio] 43.8 kg/m2 43.8 k g/m2 [facility] ([facility]) Body weight 217.00 [lb_av] 217.00 [lb_av] MEDEN T ([facility]) stated wheelchair Body height 59 [in_i] 59 [in_i] MEDENT ([facility]) 4'11" Diastolic blood pressure 82 mm[Hg] 82 mm[Hg] AMRIUSZ ([facility], ) Systolic blood pressure 118 mm[Hg] 118 mm[Hg] Shane KWAN ([facility], )
[2020-04-02] MEDS ORDERED: NS 500 ML IV ONE (11:30)
[2020-04-02] MEDS ORDERED: VANCOMYCIN HCL 2,000 MG in IV FLUID PLACE HOLDER 1 EA IV ONE (11:30)
[2020-04-02 11:33] LABS: BASO # 0.1 10^3/uL (0.0-0.2); BASO % 0.6 % (0.0-1.0); EOS # 0.2 10^3/uL (0.0-0.5); EOS % 1.6 % (0.0-3.0); HEMATOCRIT 34.4 % (36.0-47.0); HEMOGLOBIN 10.1 g/dl (12.0-15.5); LYMPH # 1.3 10^3/uL (1.5-5.0); LYMPH % 13.5 % (24.0-44.0); MEAN CORPUSCULAR HEMOGLOBIN 26.3 pg (27.0-33.0); MEAN CORPUSCULAR HGB CONC 29.4 g/dl (32.0-36.5); MEAN CORPUSCULAR VOLUME 89.6 fl (80.0-96.0); MONO # 0.7 10^3/uL (0.0-0.8); NEUTROPHILS # 7.3 10^3/uL (1.5-8.5); NEUTROPHILS % 75.7 % (36.0-66.0); PLATELET COUNT, AUTOMATED 352 10^3/uL (150-450); RED BLOOD COUNT 3.84 10^6/uL (4.00-5.40); WHITE BLOOD COUNT 9.6 10^3/uL (4.0-10.0)
[2020-04-02] MEDS ORDERED: PERCOCET 5MG/325MG TAB PO ONE (11:45)
[2020-04-02 11:50] LABS: INR 1.74; PROTHROMBIN TIME 20.7 SECONDS (12.5-14.3)
[2020-04-02] MEDS ORDERED: XARE20TA PO (11:51)
[2020-04-02] MEDS ORDERED: SERT50TA29 PO (11:51)
[2020-04-02] MEDS ORDERED: METO50TA7 PO (11:51)
[2020-04-02] MEDS ORDERED: GLUC1INJ11 IM (11:51)
[2020-04-02] MEDS ORDERED: INSUDET SC (11:51)
[2020-04-02] MEDS ORDERED: ACET1TAB55 PO (11:51)
[2020-04-02] MEDS ORDERED: MOM30SS2 PO (11:51)
[2020-04-02] MEDS ORDERED: PERC5TAB12 PO (11:51)
[2020-04-02] MEDS ORDERED: BISA10SU4 PR (11:51)
[2020-04-02] MEDS ORDERED: ENEMENE PR (11:51)
[2020-04-02 11:52] LABS: PARTIAL THROMBOPLASTIN TIME 54.7 SECONDS (24.2-38.5)
[2020-04-02 12:00] LABS: RSV AMPLIFICATION NEGATIVE (NEGATIVE)
[2020-04-02] MEDS ORDERED: VANCOMYCIN HCL 1,000 MG, VIAL MATE ADAPTER 1 EACH in D5W 250 ML IV ONE ×2 (12:00→13:00)
[2020-04-02 12:18] LABS: ERYTHROCYTE SEDIMENTATION RATE 93 mm/hr (0-30)
[2020-04-02 12:58] LABS: ALT/SGPT 23 IU/L (0-32); BLOOD UREA NITROGEN 15 MG/DL (7-18); CALCIUM LEVEL 8.6 MG/DL (8.8-10.2); CARBON DIOXIDE LEVEL 28 mmol/L (20-29); CHLORIDE LEVEL 105 MEQ/L (98-107); CREATININE FOR GFR 0.96 MG/DL (0.55-1.30); GLOMERULAR FILTRATION RATE > 60.0 (>45); GLUCOSE, FASTING 150 MG/DL (70-100); POTASSIUM SERUM 3.7 MEQ/L (3.5-5.1); SODIUM LEVEL 141 MEQ/L (136-145)
[2020-04-02 12:59] LABS: ALBUMIN 2.7 GM/DL (3.2-5.2); BILIRUBIN,TOTAL 0.3 MG/DL (0.2-1.0); TOTAL PROTEIN 6.5 GM/DL (6.4-8.2)
[2020-04-02 13:00] LABS: C REACTIVE PROTEIN QUANTITATIV 8.74 MG/DL (0.00-0.30)
[2020-04-02] MEDS ORDERED: ISOVUE-370 76% 100ML VIAL As Ordered ONE (13:10)
[2020-04-02 13:41] LABS: CK-MB VALUE MASS 1.5 NG/ML (<3.6); CPK CREATINE PHOSPHOKINASE 90 U/L (26-192); MB/CK RELATIVE INDEX 1.66 (< OR =4); TROPONIN I < 0.02 NG/ML (< 0.10)
[2020-04-02] MEDS ORDERED: LevoFLOXacin IV 750 MG in IV 1 EA IV ONE (14:15)
--- NOTE | 2020-04-02 14:20 | REP ---
INDICATION: concern for infect/abscess L groin @surg site. COMPARISON: 02/17/2016. TECHNIQUE: CT pelvis performed following the intravenous administration of 100 cc of Isovue 370. Sagittal and coronal reconstruction images performed. FINDINGS: In the left inguinal region there are skin carolyn present. In the underlying soft tissues there are foci of air in the abdominal wall with ill-defined edema/inflammation. There are mildly prominent left inguinal lymph nodes up to about 1 cm in short axis dimension. No drainable abscess is seen. The left common iliac artery is patent as are the more distal left lower extremity arterial structures matter visualized into the upper left thigh. There is occlusion of the right hip external iliac artery at its origin. In the upper right thigh and no flow is seen in the right common femoral or proximal superficial femoral arteries. Small collateral vessels are seen in the soft tissues. The uterus and ovaries appear unremarkable. There is no pelvic mass or free fluid. Visualized bowel loops are unremarkable. IMPRESSION: Edema/inflammation in the left inguinal region with overlying skin carolyn. There are also foci of air in the soft tissues with no drainable abscess or fluid collection. 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 Dr. Ivey was informed of these findings at the time of the exam. Critical Findings: Occlusion origin right external iliac artery. The critical information above was relayed directly by me by telephone to Jose Ivey on 04/02/2020 at 2:15 pm with readback verification. <Electronically signed by Tiburcio Infante > 04/02/20 [id number]
--- NOTE | 2020-04-02 15:10 | REPVR ---
PROCEDURE INFORMATION: Exam: CT Head Without Contrast Exam date and time: 04/02/2020 1:25 PM Age: 70 years old Clinical indication: Altered mental status/memory loss; Additional info: Alt mental stat TECHNIQUE: Imaging protocol: Computed tomography of the head without contrast. Radiation optimization: All CT scans at this facility use at least one of these dose optimization techniques: automated exposure control; mA and/or kV adjustment per patient size (includes targeted exams where dose is matched to clinical indication); or iterative reconstruction. COMPARISON: No relevant prior studies available. FINDINGS: Brain: A large chronic left MCA territory infarct is present. There is no acute intracranial hemorrhage, mass effect, or midline shift. Cerebral ventricles: Mild ex vacuo dilation of the left lateral ventricle is present. There is no hydrocephalus. Bones/joints: Hyperostosis frontalis interna is noted. Paranasal sinuses: There is no acute sinusitis. Mastoid air cells: Visualized mastoid air cells are well aerated. Orbital cavity: Unremarkable as visualized. Soft tissues: Unremarkable. IMPRESSION: 1. No acute abnormality. 2. Chronic findings as discussed above. Electronically signed by: Carlos Fonseca On 04/02/2020 15:10:43 PM
[2020-04-02] MEDS ORDERED: ACETAMINOPHEN TAB 650MG DOSE (2X325MG) PO PRN (15:30)
--- OUTSIDE RECORDS SUMMARY | 2020-04-02 15:49 | CCD ---
Author Author [facility] Organization [facility] Address Unknown Phone Unavailable Care Team Providers Care Elderly Sitter Name Role Phone Enmanuel BALL MD Unavailable [...] Enmanuel PACK MD Unavailable Unavailable ANTECOL, Enmanuel PAKC MD Unavailable Unavailable ANTECOL, Enmanuel PACK MD [...] ANTECOL, Enmanuel PACK MD Unavailable Unavailable ANTECOL, nEmanuel PACK MD Unavailable Unavailable ANTECOL, Enmanuel PAKC MD Unavailable Unavailable ANTECOL, Enmanuel PACK MD [...] is protected by Article 27-F of the [facility] Public Health law. If you continue you may have access to information: Regarding HIV / AIDS; Provided by facilities licensed or operated by the [facility] Office of Mental Health; or Provided by the [facility] Office for People With Developmental Disabilities. If such information is present, then the following [facility] mandated warning applies: This information has been [...] law may result in a fine or snf sentence or both. A general authorization for the release of medical or other information is NOT sufficient authorization for further disc losure. Family History Family Member Name Family Member Gender Family Member Status Date o f Status Description Data Source(s) Unknown Male Problem MEDENT ([facility]) Encounters Encounter Providers Location Date Indications Data Source(s ) ([id number]) For [place] [facility] [address] 03/21/2020 12:00:00 AM EST eCW1 ([facility]) ([id number]) For [place] [address] [place] [id number] 03/07/2020 12:00:00 AM EST eCW1 ([facility]) Outpatient Attender: SIRENA BALL MD Main Office 03/05/2020 01:30:00 PM EST MEDENT ([facility]) ([id number]) For [place] [address] [place], [place] [id number] 02/29/2020 12:00:00 AM EST eCW1 ([facility]) ([id number]) For [place] [address] [place], [place] [id number] 02/22/2020 12:00:00 AM EST eCW1 ([facility]) ([id number]) For [place] [address] [place], [place] [id number] 02/08/2020 12:00:00 AM EST eCW1 ([facility]) Unknown [address] [id number] 02/05/2020 12:00:00 AM EST eCW1 ([facility]) ([id number]) For [place] [address] [place], [place] [id number] 02/01/2020 12:00:00 AM EST eCW1 ([facility]) Office Visit, Est Pt., Level 3 PC [address] 01/25/2020 12:00:00 AM EST eCW1 ([facility]) Outpatient [address] [facility] [address] 01/18/2020 12:00:00 AM EDT eCW1 ([facility]) (WND NP120) New Patient 120 Min [address] [place] [address] 01/11/2020 12:00:00 AM EDT eCW1 ([facility]) Outpatient Attender: Renetta Pantoja RPA [place] 12/11/2019 01:15:00 PM EDT MEDENT ([facility], ) Outpatient Attender: Renetta Pantoja RPA [place] 12/06/2019 11:00:00 AM EDT MEDENT ([facility], ) Outpatient 008 10/24/2019 10:18:00 AM EDT - 10/24/2019 10:18:00 AM EDT Lab test [facility] Lab test Medications Medication Brand Name Start Date Product Form Dose Route Admi nistrative Instructions Pharmacy Instructions Status Indications Reaction Description Data Source(s) Sertraline 50 MG Oral Tablet Sertraline HCL 03/29/2020 12:00:00 AM EST ORAL active MEDENT ([facility]) sennosides, RESIDENTIAL 8.6 MG Oral Capsule Senna 03/29/2020 12:00:00 AM EST ORAL active MEDENT ([facility]) Acetaminophen 500 MG Oral Tablet [Mapap] Mapap 03/29/2020 12:00: 00 AM EST ORAL active MEDENT ([facility]) sitagliptin 50 MG Oral Tablet [Januvia] Januvia 03/29/2020 12:00:0 0 AM EST ORAL active MEDENT ([facility]) Rosuvastatin calcium 20 MG Oral Tablet Rosuvastatin Calcium 03/29/2020 12:00:00 AM EST ORAL active MEDENT ([facility]) ropinirole 0.25 MG Oral Tablet Ropinirole HCL 03/29/2020 12:00:00 AM EST ORAL active MEDENT ([facility]) latanoprost 0.05 MG/ML Ophthalmic Solution [Xalatan] Xalatan 03/28/2020 12:00:00 AM EST OPHTHALMIC active MEDEN T ([facility]) icosapent ethyl 1000 MG Oral Capsule [Vascepa] Vascepa 03/28/2020 12:00:00 AM EST ORAL active MEDENT ([facility]) Furosemide 40 MG Oral Tablet Furosemide 03/28/2020 12:00:00 AM EST ORAL active MEDENT ([facility]) ferrous sulfate 325 MG Oral Tablet Ferrous Sulfate 03/28/2020 12:00 :00 AM EST ORAL active MEDENT ([facility]) rivaroxaban 20 MG Oral Tablet [Xarelto] Xarelto 03/28/2020 12:00:0 0 AM EST ORAL active MEDENT ([facility]) Omeprazole 20 MG Delayed Release Oral Tablet Omeprazole 03/28/2020 12:00:00 AM EST ORAL active MEDENT ([facility]) Metformin hydrochloride 500 MG Oral Tablet Metformin HCL 03/28/2020 12:00:00 AM EST ORAL active MEDENT ([facility]) Acetaminophen 325 MG / Oxycodone Hydrochloride 5 MG Or al Tablet Oxycodone-Acetaminophen 03/28/2020 12:00:00 AM EST active MEDENT ([facility]) Aspirin 81 MG Delayed Release Oral Tablet Aspirin Adult Low Dose 03/28/2020 12:00:00 AM EST ORAL active M EDENT ([facility]) Ascorbic Acid 60 MG / Beta Carotene 5000 UNT / Copper Sulfate 40 MG / dl-alpha tocopheryl acetate 30 UNT / Sodium Selenite 0.04 MG / Zinc Oxide 40 MG Oral Tablet Vitamin D3 Complete 03/28/2020 12:00:00 AM EST ORAL active MEDENT ([facility]) Metoprolol Tartrate 50 MG Oral Tablet Metoprolol Tartrate 12:00:00 AM EST ORAL active MEDENT ([facility]) Allopurinol 100 MG Oral Tablet Allopurinol 03/28/2020 12:00:00 AM EST ORAL active MEDENT ([facility]) insulin detemir 100 UNT/ML Injectable Solution [Levemir] Lev kaley 03/28/2020 12:00:00 AM EST SUBCUTANEOUS active MEDENT ([facility]) icosapent ethyl 1000 MG Oral Capsule [Vascepa] Vascepa 03/05/2020 12:00:00 AM EST ORAL active MED[facility] ([facility] Allopurinol 100 MG Oral Tablet Allopurinol 03/04/2020 12:00:00 AM EST ORAL active MEDENT ([facility]) rivaroxaban 20 MG Oral Tablet [Xarelto] Xarelto 03/04/2020 12:00:0 0 AM EST ORAL active MEDENT ([facility]) insulin detemir 100 UNT/ML Injectable Solution [Levemir] Lev kaley 03/04/2020 12:00:00 AM EST SUBCUTANEOUS active MEDENT ([facility]) latanoprost 0.05 MG/ML Ophthalmic Solution Latanoprost 03/04/2020 12:00:00 AM EST OPHTHALMIC active MEDENT ([facility]) Sertraline 50 MG Oral Tablet Sertraline HCL 03/04/2020 12:00:00 AM EST ORAL active MEDENT ([facility]) sitagliptin 50 MG Oral Tablet [Januvia] Januvia 03/04/2020 12:00:0 0 AM EST ORAL active MEDENT ([facility]) Rosuvastatin calcium 20 MG Oral Tablet [Crestor] Crestor 03/04/2020 12:00:00 AM EST ORAL active MEDENT ([facility]) Metoprolol Tartrate 50 MG Oral Tablet Metoprolol Tartrate 12:00:00 AM EST ORAL active MEDENT ([facility]) sennosides, RESIDENTIAL 8.6 MG Oral Tablet Senna-Lax 03/04/2020 12:00:00 AM EST ORAL active MEDENT ([facility]) Acetaminophen 500 MG Oral Tablet Acetaminophen Extra Strengt h 03/04/2020 12:00:00 AM EST ORAL active M EDENT ([facility]) Antifungal 03/04/2020 12:00:00 AM EST active MEDENT ([facility]) Metformin hydrochloride 500 MG Oral Tablet Metformin HCL 03/04/2020 12:00:00 AM EST ORAL active MEDENT ([facility]) ropinirole 0.25 MG Oral Tablet Ropinirole HCL 03/04/2020 12:00:00 AM EST ORAL active MEDENT ([facility]) Cholecalciferol 1000 UNT Oral Tablet Vitamin D (Cholecalcife rol) 03/04/2020 12:00:00 AM EST ORAL active M EDENT ([facility]) Furosemide 40 MG Oral Tablet Furosemide 03/04/2020 12:00:00 AM EST ORAL active MEDENT ([facility]) Glucagon 1 MG Injection Glucagon Emergency 03/04/2020 12:00:00 AM EST active MEDENT ([facility]) Magnesium Hydroxide 80 MG/ML Oral Suspension Milk Of Magnesi a 03/04/2020 12:00:00 AM EST ORAL active M EDENT ([facility]) Aspirin 81 MG Delayed Release Oral Tablet Aspirin 03/04/2020 1 2:00:00 AM EST ORAL active MEDENT ([facility]) Omeprazole 20 MG [...] 03/04/2020 12:00:00 AM EST active MEDENT ([facility]) Insurance Providers Payer name Policy type / Coverage type Policy ID Covered constitution party ID Covered constitution party's relationship to camp[place] Policy [place] Plan Information EMEDNY [id number] SP [id number] MEDICARE [id number] SP [id number] [id number] MEDICARE C [id number] S [id number] N16 MEDICAID M [id number] S [id number] MEDICARE C [id number] S [id number] A [facility] 010/510 [id number] SP [id number] [facility] [id number] MEDICARE [id number] SP [id number] A MEDICAID [id number] SP [id number] MEDICARE [id number] SP [id number] A [facility] Commercial [id number] [facility] [id number] Medicaid Medigap Part B [id number] Self [id number] [id number] Medicare Part B Medicare Primary [id number] Self [id number] [facility] Commercial [id number] Self [id number] Medicaid Medigap Part B [id number] Self [id number] Medicare Part B Medicare Primary [id number] Self [id number] MEDICAID [id number] Marylou [id number] MEDICARE [id number] Marylou [id number] A MEDICAID M [id number] Self [id number] MEDICARE A [id number] Self [id number] A Medicaid Medigap Part B [id number] Self [id number] Shafter Care Commercial [id number] Self [id number] Medicare Part B Medicare Primary [id number] Self [id number] MEDICAID PI PI MEDICARE PI PI Medicaid Medigap Part B [id number] Self [id number] [id number] Iain Care Commercial [id number] Self [id number] Medicare Part B Medicare Primary [id number] Self [id number] IAIN [id number] SP [id number] MEDICARE [id number] SP [id number] A [place] CARE [place] O [id number] S [id number] MEDICARE - [place] MCR [id number] S [id number] MEDICAID [id number] SP [id number] MEDICARE [id number] SP [id number] A Medicaid Medigap Part B [id number] Self [id number] [id number] Medicare (Part B) Medicare Primary [id number] Self [id number] [place]AIN [place] [id number] SP [id number] IAIN 7 SP 7 Medicaid [place] Medigap Part B Self Medicare [facility] Medicare Primary Self Medicare (Part B) Medicare Primary Self Medicaid Medigap Part B Self MEDICAID -O/P [id number] 18 [id number] MEDICARE PART A-O/P [id number] 18 [id number] MEDICAID - O/P EMERGENCY ROOM [id number] 18 [id number] MEDICARE [id number] S [id number] A MEDICAID [id number] MCRB [id number] S [id number] A Medicare Medicare Primary Self MEDICAID -RECURRING [id number] MEDICARE -RECURRING [id number] 18 [id number] MEDICARE PART A -RECURRING [id number] 18 [id number] MEDICAID JUDY [id number] S [id number] COMMERCIAL GENERIC U [id number] Self [id number] MEDICAID-SNF [id number] MEDICARE PART A-SNF [id number] 18 [id number] [facility] O [id number] S [id number] SELFPAY 5 UNAVAILABLE 1 UNAVAILA BLE MEDICAID 3 [id number] MEDICARE 4 [id number] 1 [id number] A MEDICAID-I/P [id number] 18 [id number] MEDICARE PART A-I/P [id number] 18 [id number] Problems, Conditions, and Diagnoses Code Display Name Description Problem Type Effective Dates Data Source(s) 440514557 Dyspnea Dyspnea Problem 03/05/2020 12:00:00 AM ES T MEDENT ([facility]) [id number] Preoperative cardiovascular examination Preoperative cardiovascular examination Problem 03/05/2020 12:00:00 AM EST MEDENT ([facility]) [id number] Permanent atrial fibrillation Permanent atrial fibrill ation Problem 03/05/2020 12:00:00 AM EST MEDENT ([facility]) L97.822 [id number] Non-pressure chronic ulcer of other part of left lower leg with fat layer exposed Problem 01/11/2020 12:00:00 AM EDT eCW1 ([facility]) I70.248 [id number] 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 Problem 01/11/2020 12:00:00 AM EDT eCW1 ([facility]) Z5189 Encounter for other specified aftercare Encounter for other specified aftercare Diagnosis 10/24/2019 10:18:00 AM EDT [facility] Surgeries/Procedures Procedure Description Date Indications Data Source(s) FINE NEEDLE ASPIRATION W/O IMAGING GUIDANCE 03/21/2020 12:00:00 AM EST eCW1 ([facility]) FINE NEEDLE ASPIRATION W/O IMAGING GUIDANCE 03/07/2020 12:00:00 AM EST eCW1 ([facility]) ECG ROUTINE ECG W/LEAST 12 LDS W/I&R 03/05/2020 12:00: 00 AM EST MEDENT ([facility]) FINE NEEDLE ASPIRATION W/O IMAGING GUIDANCE 02/29/2020 12:00:00 AM EST eCW1 ([facility]) FINE NEEDLE ASPIRATION W/O IMAGING GUIDANCE 02/22/2020 12:00:00 AM EST eCW1 ([facility]) FINE NEEDLE ASPIRATION W/O IMAGING GUIDANCE 02/08/2020 12:00:00 AM EST eCW1 ([facility]) FINE NEEDLE ASPIRATION W/O IMAGING GUIDANCE 02/01/2020 12:00:00 AM EST eCW1 ([facility]) FINE NEEDLE ASPIRATION W/O IMAGING GUIDANCE 01/25/2020 12:00:00 AM EST eCW1 ([facility]) FINE NEEDLE ASPIRATION W/O IMAGING GUIDANCE 01/18/2020 12:00:00 AM EDT eCW1 ([facility]) FINE NEEDLE ASPIRATION W/O IMAGING GUIDANCE 01/11/2020 12:00:00 AM EDT eCW1 ([facility]) Results ID Date Data Source [id number] 04/02/2020 01:23:00 PM EST MEDENT ([facility]) Name Value Range Interpretation Code Description Data Isatu rce(s) Supporting Document(s) Appearance, Urine RFX Laboratory test result MEDENT ([facility]) Color, Urine RFX Laboratory test result MEDENT ([facility]) Specific [place] Ur Auto RFX 1.008 1.002-1.035 MEDENT ([facility]) PH,Urine RFX 5.0 units 5.0-9.0 MEDENT ([facility]) Glucose, Urine (Ua) Auto RFX Laboratory test result MEDENT ([facility]) Protein, Urine Auto RFX Laboratory test result MEDENT ([facility]) Ketone, Urine Auto RFX Laboratory test result MEDENT ([facility]) Urobilinogen, Urine Auto RFX 0.2 mg/dL 0.0-2.0 MEDENT ([facility]) Nitrite, Urine Auto RFX Laboratory test result MEDENT ([facility]) Bilirubin, Urine Auto RFX Laboratory test result MEDENT ([facility]) Blood, Urine Blood RFX Laboratory test result MEDENT ([facility]) WBC, Urine Auto RFX 60 /HPF 0-3 MEDENT [facility] Leukocyte Esterase Ur Auto RFX Laboratory test result MEDENT ([facility]) RBC, Urine Auto RFX 12 /HPF 0-3 MEDENT [facility] Squam Epithelial Cell Ur Aurfx 3 /HPF 0-6 MEDENT ([facility]) Bacteria, Urine Auto RFX Laboratory test result MEDENT ([facility]) Hyaline Cast, Urine Auto RFX 0 /LPF 0-1 M EDENT ([facility]) Mucus, Urine RFX Laboratory [facility] ID Date Data Source [id number] 04/02/2020 11:22:00 AM EST MEDENT ([facility]) Name Value Range Interpretation Code Description Data Isatu rce(s) Supporting Document(s) C reactive protein [Mass/volume] in Serum or Plasma by High sensitivity method 8.74 mg/dL 0.00-0.30 [facility] ([facility] ) <content>--- 04/02/20 1259 ---</content >
<content>C-REACT PROT QT previously reported as:</content>
<content>8.74 H MG/DL</content>
<content></content>
<content></content>
<content>--- 04/02/20 1300 ---</content>
<content>C-REACT PROT QT previously reported as:</content>
<content>< 0.30 MG/DL</content>
<content>--- 04/02/20 1259 ---</content>
<content>C-REACT PROT QT previously reported as:</content>
<content>8.74 H MG/DL</content>
<content></content>
<content></content>
<content></c ontent>
<content></content>
<content></content>
<content></content> Lactate [Mass/volume] in Serum or Plasma 2.0 mmol/L 0.4-2.0 MEDENT ([facility]) Y/N query for Sepsis Lactate Rule: Y ID Date Data Source [id number] 04/02/2020 11:22:00 AM EST MEDENT ([facility]) Name Value Range Interpretation Code Description Data Isatu rce(s) Supporting Document(s) Blood Urea Nitrogen 15 mg/dL 7-18 MEDENT ([facility]) Glucose, Fasting 150 mg/dL 70-100 MEDENT ([facility]) Sodium Level 141 meq/L 136-145 MEDENT ([facility]) Glomerular Filtration Rate Laboratory test result MEDENT ([facility]) <content>Units are mL/min/1.73 m2</content>
<content></content>
<content>Chronic Kidney Disease Staging per NKF:</content>
<content></content>
<content>Stage I & II GFR >=60 Normal to Mildly Decreased</content>
<content>Stage III GFR 30- 59 Moderately Decreased</content>
<content>Stage IV GFR 15-29 Severely Decreased</content>
<content>Stage V GFR <15 Very Little GFR Left</content>
<content>ESRD GFR <15 on DIRECTOR HOUSEKEEPING</content>
<content></content> Creatinine For GFR 0.96 mg/dL 0.55-1.30 MEDENT ([facility]) Carbon Dioxide Level 28 mmol/L 20-29 MEDENT ([facility]) Potassium Serum 3.7 meq/L 3.5-5.1 MEDENT ([facility]) Chloride Level 105 meq/L 98-107 MEDENT ([facility]) Anion Gap 8 meq/L 8-16 [facility]) Calcium Level 8.6 mg/dL 8.8-10.2 MEDENT ([facility]) ID Date Data Source [id number] 04/02/2020 11:22:00 AM EST MEDENT ([facility]) Name Value Range Interpretation Code Description Data Isatu rce(s) Supporting Document(s) Ast/Sgot 24 IU/L MEDENT ([facility]) Alkaline Phosphatase 105 U/L 45-117 MEDENT ([facility]) Alt/SGPT 23 IU/L 0-32 MEDENT ([facility]) Bilirubin,Total 0.3 mg/dL 0.2-1.0 MEDENT ([facility]) Total Protein 6.5 GM/DL 6.4-8.2 MEDENT ([facility]) Bilirubin,Direct 0.0 mg/dL 0.0-0.2 MEDENT ([facility]) Albumin/Globulin Ratio 0.7 1.2-2.2 [facility] ([facility]) Albumin 2.7 GM/DL 3.2-5.2 [facility] ID Date Data Source [id number] 04/02/2020 11:22:00 AM EST MEDENT ([facility]) Name Value Range Interpretation Code Description Data [facility](s) Supporting Document(s) CPK Creatine Phosphokinase 90 U/L 26-192 [facility] E[facility] ([facility]) CK-MB Value Mass 1.5 ng/mL [facility] ([facility]) MB/CK Relative Index 1.66 [facility]) <content>DIAGNOSIS CRITERIA</content>
<content>MMB ng/ml Relative Index (RI)</content>
<content>NON-AMI < or = 5 N/A</content>
<content>CORTES ZONE > 5 < or = 4</content>
<content>AMI > 5 > 4</content>
<content></content> Troponin I Laboratory test result [facility] ([facility]) <content>Troponin I Reference Interval f or Siemens [place] LOCI:</content>
<content></content>
<content>99th Percentile= 0.00-0.045 ng/ml</content>
<content></content>
<content>Risk Stratification:</content>
<content><= 0.10 ng/ml Decreased Risk for Adverse Clinical</content>
<content>Events.</content>
<content>0.10-1.50 ng/ml Increased Risk for Adverse Clinical</content>
<content>Events. Evaluation of additional</content>
<content>criterion and/or repeat testing in 2-6</content>
<content>hours is suggested to rule out myocardial</content>
<content>damage.</content>
<content>>= 1.50 ng/ml Indicative of Myocardial Injury.</content>
<content></content> ID Date Data Source [id number] 04/02/2020 11:22:00 AM EST MEDENT ([facility]) Name Value Range Interpretation Code Description Data Isatu rce(s) Supporting Document(s) Erythrocyte sedimentation rate by Westergren method 93 mm/hr 0-30 [facility] ID Date Data Source [id number] 04/02/2020 11:22:00 AM EST MEDENT ([facility]) Name Value Range Interpretation Code Description Data Isatu rce(s) Supporting Document(s) Hemoglobin 10.1 g/dL 12.0-15.5 MEDENT ([facility]) White Blood Count 9.6 10 4.0-10.0 MEDENT ([facility]) Red Blood Count 3.84 10 4.00-5.40 MEDENT ([facility]) Mean Corpuscular Hemoglobin 26.3 pg 27.0-33.0 ME DENT ([facility]) Hematocrit 34.4 % 36.0-47.0 [facility] ([facility]) Mean Corpuscular Volume 89.6 fl 80.0-96.0 MEDENT ([facility]) Mean Corpuscular HGB Conc 29.4 g/dL 32.0-36.5 MEDE NT ([facility]) Platelet Count, Automated 352 10 150-450 MEDE NT ([facility]) Red Cell Distribution Width 15.4 % 11.5-14.5 ME DENT ([facility]) Neutrophils % 75.7 % 36.0-66.0 MEDENT ([facility]) [place] % 7.0 % 0.0-5.0 [facility] [facility] Lymph % 13.5 % 24.0-44.0 [facility] [facility] Baso % 0.6 % 0.0-1.0 [facility] [facility] Eos % 1.6 % 0.0-3.0 [facility] [facility] Immature Granulocyte % 1.6 % 0-3.0 MED[facility] ([facility]) Nucleated Red Blood Cell % 0.0 % 0-0 MED E[facility] ([facility]) Neutrophils # 7.3 10 1.5-8.5 MED[facility] ([facility]) [place] # 0.7 10 0.0-0.8 [facility] [facility] Eos # 0.2 10 0.0-0.5 [facility] [facility] Lymph # 1.3 10 1.5-5.0 [facility] [facility] Baso # 0.1 10 0.0-0.2 [facility] [facility] ID Date Data Source [id number] 04/02/2020 11:22:00 AM EST MEDENT ([facility]) Name Value Range Interpretation Code Description Data Isatu rce(s) Supporting Document(s) Prothrombin Time 20.7 s 12.5-14.3 MED[facility] ([facility]) Inr 1.74 [facility] ([place] [facility] THERAPUTIC HUMAN INR VALUES INDICATIONS NORMAL RANGES PROPHYLAXIS/TREATMENT OF: VENOUS THROMBOSIS 2.0-3.0 PULMONARY EMBOLISM 2.0-3.0 PREVENTION OF SYSTEMIC EMBOLISM FROM: TISSUE HEART VALVES 2.0-3.0 ACUTE MYOCARDIAL INFARCTION 2.0-3.0 VALVULAR HEART DISEASE 2.0-3.0 ATRIAL FIBRILLATION 2.0-3.0 MECHANICAL VALVES(HIGH RISK) 2.5-3.5 RECURRENT MYOCARDIAL INFARCTION 2.5-3.5 Partial Thromboplastin Time 54.7 s 24.2-38.5 [facility] DENT ([facility]) ID Date Data Source [id number] 04/02/2020 11:08:00 AM EST MED[facility] ([facility] Name Value Range Interpretation Code Description Data Isatu rce(s) Supporting Document(s) Influenza A Amplification Laboratory test result [facility] [facility] Negative results do not preclude influen za or RSV virus infection and should not be used as the sole basis for treatment or other patient management decisions. Influenza B Amplification Laboratory test result [facility] ([facility]) Negative results do not preclude influen za or RSV virus infection and should not be used as the sole basis for treatment or other patient management decisions. RSV Amplification Laboratory test result [facility] ([facility]) Negative results do not preclude influen za or RSV virus infection and should not be used as the sole basis for treatment or other patient management decisions. Laboratory test finding (navigational concept) Laboratory test result [facility] ([facility]) A false negative result may occur if a s pecimen is improperly collected, transported or handled. False negative results may also occur if inadequate numbers of organisms are present in the specimen. As with any molecular test, mutations within the target regions of Xpert Xpress SARS-CoV-2 could affect primer and/or probe binding resulting in failure to detect the presence of virus. This test cannot rule out diseases caused by other bacterial or viral pathogens. DISCLAIMER: Testing was performed using the [facility] SARS-CoV-2 test. This test was developed and its performance characteristics determined by [facility]. This test has not been FDA cleared or approved. This test has been authorized by FDA under an Emergency Use Authorization (EUA). This test is only authorized for the duration of time the declaration that circumstances exist justifying the authorization of the emergency use of in vitro diagnostic tests for detection of SARS-CoV-2 virus and/or diagnosis of COVID-19 infection under section 564(b)(1) of the Act, 21 U.S.C. 360bbb-3(b)(1), unless the authorization is terminated or revoked sooner. ID Date Data Source [id number] 03/29/2020 11:00:00 AM EST [facility] Name Value Range Interpretation Code Description Data Isatu rce(s) Supporting Document(s) SARS coronavirus 2 RNA Not Detected [facility] This lab was ordered by [facility] and reported by [facility]. ID Date Data Source [id number] 03/27/2020 04:03:00 PM EST [facility] Name Value Range Interpretation Code Description Data Isatu rce(s) Supporting Document(s) SARS coronavirus 2 RNA [Presence] in Res piratory specimen by FRANCISCO with probe detection NEGATIVE [facility] This lab was ordered by [facility] a nd reported by [facility]. ID Date Data Source [id number] 03/21/2020 01:58:00 PM EST [facility] Name Value Range Interpretation Code Description Data Isatu rce(s) Supporting Document(s) SARS coronavirus 2 RNA [Presence] in Res piratory specimen by FRANCISCO with probe detection [facility] This lab was ordered by [facility] a nd reported by [facility]. ID Date Data Source [id number] 03/19/2020 10:15:00 AM EST [facility] Name Value Range Interpretation Code Description Data Isatu rce(s) Supporting Document(s) SARS coronavirus 2 RNA [facility] This lab was ordered by [facility] and reported by [facility]. ID Date Data Source [id number] 03/13/2020 11:00:00 AM EST [facility] Name Value Range Interpretation Code Description Data Isatu rce(s) Supporting Document(s) SARS coronavirus 2 RNA [facility] This lab was ordered by [facility] and reported by [facility]. ID Date Data Source [id number] 03/07/2020 10:20:00 AM EST [facility] Name Value Range Interpretation Code Description Data Isatu rce(s) Supporting Document(s) SARS coronavirus 2 RNA [facility] This lab was ordered by [facility] and reported by [facility]. ID Date Data Source [id number] 03/04/2020 03:42:00 PM EST [facility] ([facility]) Name Value Range Interpretation Code Description Data Isatu rce(s) Supporting Document(s) Platelets 318 172-450 [facility] White Blood Count 8.3 4.0-10.0 [facility] ([facility]) Red Blood Count 4.34 4.00-5.40 [facility] ([facility]) Hematocrit 39.2 [facility] ([facility]) Hemoglobin 11.6 [facility] ([facility]) ID Date Data Source [id number] 03/04/2020 03:42:00 PM EST [facility] ([facility] Name Value Range Interpretation Code Description Data Isatu rce(s) Supporting Document(s) Glucose 173 70-100 [facility] Sodium 141 136-145 [facility] Creatinine 0.93 0.6-1.0 [facility] ([facility]) Blood Urea Nitrogen 16 7-18 [facility] ([facility]) Carbon Dioxide 28 21-32 [facility] ([facility]) Potassium 3.9 3.5-5.1 [facility] ([facility] Chloride 104 98-107 [facility] Calcium 8.9 8.2-9.6 [facility] Glomerular filtration rate/1.73 sq M.pre dicted [Volume Rate/Area] in Serum or Plasma by Creatinine-based formula (MDRD) Laboratory test result [facility] ([facility]) ID Date Data Source [id number] 03/03/2020 01:52:00 PM EST [facility] Name Value Range Interpretation Code Description Data Isatu rce(s) Supporting Document(s) SARS coronavirus 2 RNA [facility] This lab was ordered by [facility] and reported by [facility]. ID Date Data Source [id number] 02/14/2020 12:00:00 PM EST [facility] Name Value Range Interpretation Code Description Data Isatu rce(s) Supporting Document(s) SARS coronavirus 2 RNA [facility] This lab was ordered by [facility] and reported by [facility]. ID Date Data Source [id number] 02/08/2020 12:00:00 PM EST [facility] Name Value Range Interpretation Code Description Data Isatu rce(s) Supporting Document(s) SARS coronavirus 2 RNA [facility] This lab was ordered by [facility] and reported by [facility]. ID Date Data Source [id number] 02/01/2020 02:30:00 PM EST [facility] Name Value Range Interpretation Code Description Data Isatu rce(s) Supporting Document(s) SARS coronavirus 2 RNA [facility] This lab was ordered by [facility] and reported by [facility]. ID Date Data Source [id number] 01/16/2020 03:39:00 PM EDT [facility] ([facility] [...] [facility]) ID Date Data Source [id number] 01/09/2020 09:30:00 AM EDT [facility] ([facility]) Name Value Range Interpretation Code Description Data Isatu rce(s) Supporting Document(s) Bedside Glucose 241 mg/dL 80-115 [facility] ([facility]) ID Date Data Source [id number] 01/05/2020 11:45:00 AM EDT [facility] Name Value Range Interpretation Code Description Data Isatu rce(s) Supporting Document(s) SARS coronavirus 2 RNA [facility] This lab was ordered by [facility] and reported by [facility]. ID Date Data Source [id number] 10/23/2019 08:29:00 AM EDT [facility] Name Value Range Interpretation Code Description Data Isatu rce(s) Supporting Document(s) BASIC METABOLIC PANEL [facility] BASIC METABOLIC PANEL Sodium [Moles/volume] in Serum or Plasma 137 mEq/L 136 - 145 [facility] Potassium [Moles/volume] in Serum or Plasma 5.1 mEq/L 3.5 - 5.1 [facility] Chloride [Moles/volume] in Serum or Plasma 100 mEq/L 98 - 107 [facility] Carbon dioxide, total [Moles/volume] in Serum or Plasma 23.5 mEq /L 21.0 - 32.0 [facility] Glucose [Mass/volume] in Serum or Plasma 247 mg/dL 70 - 100 Above high normal [facility] Urea nitrogen [Mass/volume] in Serum or Plasma 23 mg/dL 7 - 18 Above high normal [facility] CREATININE SERUM 0.96 mg/dL 0.55 - 1.02 [facility] AGE 69 yrs [facility] eGFR NON-AFR AMR 58 [facility] eGFR AFR AMR >60 Health system BUN/CREAT 24 6 - 25 [facility] Calcium [Mass/volume] in Serum or Plasma 9.0 mg/dL 8.8 - 10.2 [facility] ANION GAP 14 7 - 15 [facility] Estimated GFR reference r marcos: > 60 mL/min/1.73m >18 years: Calculated using IDMS traceable MDRD Study Equation <18 years: Calculated using IDMS traceable Bedside Mcdonald Equation ID Date Data Source [id number] 08/08/2019 03:10:00 PM EDT [facility] Name Value Range Interpretation Code Description Data Isatu rce(s) Supporting Document(s) SARS CORONAVIRUS 2 RNA [facility] This lab was ordered by [facility] and reported by [facility]. Procedure Social History Code Duration Value Status Description Data Source(s ) Smoking 03/21/2020 12:00:00 AM EST UNK completed eCW1 ([facility]) Smoking 03/07/2020 12:00:00 AM EST UNK completed eCW1 ([facility]) Smoking 03/05/2020 12:00:00 AM EST Patient is a former smoker completed Patient is a former smoker [facility] ([facility]) Smoking 02/29/2020 12:00:00 AM EST UNK completed eCW1 ([facility]) Smoking 02/27/2020 12:00:00 AM EST UNK completed eCW1 ([facility]) Smoking 02/08/2020 12:00:00 AM EST UNK completed eCW1 ([facility]) Smoking 02/08/2020 12:00:00 AM EST UNK completed eCW1 ([facility]) Smoking 02/08/2020 12:00:00 AM EST UNK completed eCW1 ([facility]) Smoking 02/01/2020 12:00:00 AM EST UNK completed eCW1 ([facility]) Smoking 01/25/2020 12:00:00 AM EST UNK completed eCW1 ([facility]) Smoking 01/18/2020 12:00:00 AM EDT UNK completed eCW1 ([facility]) Vital Signs ID Date Data Source UNK Name Value Range Interpretation Code Description Data Source(s) Diastolic blood pressure mm[Hg] eCW1 ([facility]) Systolic blood pressure 128 mm[Hg] 128 mm[Hg] e CW1 ([facility]) Body temperature 97.5 [degF] 97.5 [degF] eCW1 ( [facility]) Respiratory rate 19 /min 19 /min eCW1 ([facility]) Heart rate 78 /min 78 /min eCW1 ([facility]) Body mass index (BMI) [Ratio] 43.45 kg/m2 43.45 kg/m2 eCW1 ([facility]) Body height 59.5 [in_i] 59.5 [in_i] eCW1 ([facility]) Body weight kg eCW1 ([facility]) Body weight 218.8 [lb_av] 218.8 [lb_av] eCW1 ([facility]) Body temperature 96.4 [degF] 96.4 [degF] eCW1 ( [facility]) Respiratory rate 20 /min 20 /min eCW1 ([facility]) Heart rate 75 /min 75 /min eCW1 ([facility]) Body mass index (BMI) [Ratio] 43.45 kg/m2 43.45 kg/m2 eCW1 ([facility]) Body height 59.5 [in_i] 59.5 [in_i] eCW1 ([facility]) Body weight 218.8 [lb_av] 218.8 [lb_av] eCW1 ([facility]) Body height 59 [in_i] 59 [in_i] [...] blood pressure 84 mm[Hg] 84 mm[Hg] eCW1 ([facility]) Systolic blood pressure 177 mm[Hg] 177 mm[Hg] e CW1 ([facility]) Body temperature 96.6 [degF] 96.6 [degF] eCW1 ( [facility]) Respiratory rate 20 /min 20 /min eCW1 ([facility]) Heart rate 80 /min 80 /min eCW1 ([facility]) Body mass index (BMI) [Ratio] 42.89 kg/m2 42.89 kg/m2 eCW1 ([facility]) Body height 59.5 [in_i] 59.5 [in_i] eCW1 ([facility]) Body weight kg eCW1 ([facility]) Body weight 216 [lb_av] 216 [lb_av] eCW1 ([facility]) Heart rate 70 /min 70 /min eCW1 ([facility]) Body mass index (BMI) [Ratio] 42.89 kg/m2 42.89 kg/m2 W1 ([facility]) Body height 59.5 [in_i] 59.5 [in_i] eCW1 ([facility]) Body weight kg eCW1 ([facility]) Body weight 216 [lb_av] 216 [lb_av] eCW1 ([facility]) Diastolic blood pressure 83 mm[Hg] 83 mm[Hg] eCW1 ([facility]) Systolic blood pressure 145 mm[Hg] 145 mm[Hg] e CW1 ([facility]) Body temperature 97.3 [degF] 97.3 [degF] eCW1 ( [facility]) Respiratory rate 18 /min 18 /min eCW1 ([facility]) Diastolic blood pressure 91 mm[Hg] 91 mm[Hg] eCW1 ([facility]) Systolic blood pressure 218 mm[Hg] 218 mm[Hg] e CW1 ([facility]) Body temperature 98.3 [degF] 98.3 [degF] eCW1 ( [facility]) Respiratory rate 19 /min 19 /min eCW1 ([facility]) Heart rate 84 /min 84 /min eCW1 ([facility]) Body mass index (BMI) [Ratio] 42.89 kg/m2 42.89 kg/m2 W1 ([facility]) Body height 59.5 [in_i] 59.5 [in_i] eCW1 ([facility]) Body weight kg eCW1 ([facility]) Body weight 216 [lb_av] 216 [lb_av] eCW1 ([facility]) Diastolic blood pressure 88 mm[Hg] 88 mm[Hg] eCW1 ([facility]) Systolic blood pressure 126 mm[Hg] 126 mm[Hg] e CW1 ([facility]) Body temperature 98.8 [degF] 98.8 [degF] eCW1 ( [facility]) Respiratory rate 18 /min 18 /min eCW1 ([facility]) Heart rate 68 /min 68 /min eCW1 ([facility]) Body mass index (BMI) [Ratio] 42.89 kg/m2 42.89 kg/m2 eCW1 ([facility]) Body height 59.5 [in_i] 59.5 [in_i] eCW1 ([facility]) Body weight kg eCW1 ([facility]) Body weight 216 [lb_av] 216 [lb_av] eCW1 ([facility]) Diastolic blood pressure 70 mm[Hg] 70 mm[Hg] eCW1 ([facility]) Systolic blood pressure 157 mm[Hg] 157 mm[Hg] e CW1 ([facility]) Body temperature 97.4 [degF] 97.4 [degF] eCW1 ( [facility]) Respiratory rate 18 /min 18 /min eCW1 ([facility]) Heart rate 68 /min 68 /min eCW1 ([facility]) Body mass index (BMI) [Ratio] 42.89 kg/m2 42.89 kg/m2 eCW1 ([facility]) Body height 59.5 [in_i] 59.5 [in_i] eCW1 ([facility]) Body weight 216 [lb_av] 216 [lb_av] eCW1 ([facility]) Diastolic blood pressure mm[Hg] eCW1 ([facility]) Systolic blood pressure 130 mm[Hg] 130 mm[Hg] e CW1 ([facility]) Body temperature 95.1 [degF] 95.1 [degF] eCW1 ( [facility]) Respiratory rate 19 /min 19 /min eCW1 ([facility]) Heart rate 87 /min 87 /min eCW1 ([facility]) Body mass index (BMI) [Ratio] 42.89 kg/m2 42.89 kg/m2 eCW1 ([facility]) Body height 59.5 [in_i] 59.5 [in_i] eCW1 ([facility]) Body weight kg eCW1 ([facility]) Body weight 216 [lb_av] 216 [lb_av] eCW1 ([facility]) Body weight 98.431 kg 98.431 kg [facility] ([facility] Christopher body weight 100 [lb_av] 100 [lb_av] MEDEN T ([facility], ) Body mass index (BMI) [Ratio] 43.8 kg/m2 43.8 k g/m2 [facility] ([facility] ) Body weight 217.00 [lb_av] 217.00 [lb_av] MEDEN T ([facility]) Stated Body height 59 [in_i] 59 [in_i] [facility] ([facility]) " Diastolic blood pressure 92 mm[Hg] 92 mm[Hg] [facility] Systolic blood pressure 167 mm[Hg] 167 mm[Hg] M EDENT ([facility]) Body temperature 97 [degF] 97 [degF] eCW1 ([facility]) Respiratory rate 22 /min 22 /min eCW1 ([facility]) Heart rate 80 /min 80 /min eCW1 ([facility]) Body mass index (BMI) [Ratio] 42.89 kg/m2 42.89 kg/m2 eCW1 ([facility]) Body height 59.5 [in_i] 59.5 [in_i] eCW1 ([facility]) Body weight 216 [lb_av] 216 [lb_av] eCW1 ([facility]) Body weight 98.488 kg 98.488 [facility] Christopher body weight 100 [lb_av] 100 [lb_av] MEDEN T ([facility]) Body mass index (BMI) [Ratio] 43.8 kg/m2 43.8 k g/m2 [facility] ([facility]) Body weight 217.12 [lb_av] 217.12 [lb_av] MEDEN T ([facility]) Body height 59 [in_i] 59 [in_i] [facility] " Body weight 98.431 kg 98.431 kg [facility] ([facility]) Body mass index (BMI) [Ratio] 43.8 kg/m2 43.8 k g/m2 [facility] ([facility]) Body weight 217.00 [lb_av] 217.00 [lb_av] MEDEN T ([facility]) stated wheelchair Body height 59 [in_i] 59 [in_i] [facility] 4'11" Diastolic blood pressure 82 mm[Hg] 82 mm[Hg] MARIUSZ ([facility]) Systolic blood pressure 118 mm[Hg] 118 mm[Hg] hSane KWAN ([facility], )
--- NOTE | 2020-04-02 16:11 | HPEPDOC ---
General Date of Admission Apr 02, 2020 at 15:30 Date of Service: Apr 02, 2020 Chief Complaint The patient is a 70-year-old female admitted with a reason for visit of Chronic Atrial Fib Pvd Cva Old Hemiparesis. 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 The procedure was done on 03/25/20. Today, in the Dr Fernando perez office patient was found to have erythema around surgical with small amount of pus in the left groin area. In ER patient was found to have no leukocytosis. CT scan was done and showed Edema/inflammation in the left inguinal region with overlying skin carolyn. There are also foci of air in the soft tissues with no drainable abscess or fluid collection. 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 Home Medications Scheduled Acetaminophen (Mapap) 500 Mg Tablet, 1,000 MG PO QHS, (Reported) Allopurinol (Allopurinol) 100 Mg Tablet, 100 MG PO DAILY, (Reported) Aspirin (Aspirin) 81 Mg Tab.chew, 81 MG PO DAILY, (Reported) Cholecalciferol (Vitamin D3) (Vitamin D3) 1,000 Unit Tablet, 1,000 UNITS PO DAILY, (Reported) Ferrous Sulfate (Iron) 325 Mg Tablet, 325 MG PO DAILY, (Reported) Furosemide (Furosemide) 40 Mg Tab, 40 MG PO DAILY, (Reported) Icosapent Ethyl (Vascepa) 1 Gm Capsule, 2 GM PO BID, (Reported) Insulin Detemir (Levemir) 100 Unit/1 Ml Vial, 20 UNITS SC QAM, (Reported) Latanoprost (Xalatan) 0.005% 2.5ML Drops, 1 DROP OU QHS, (Reported) Metformin HCl (Metformin HCl) 500 Mg Tablet, 500 MG PO BID, (Reported) Metoprolol Tartrate (Metoprolol Tartrate) 50 Mg Tablet, 50 MG PO DAILY, (Reported) Miconazole Nitrate (Anti-Fungal Powder) 71 Gm Powder, 1 DOSE TOP BID, (Reported) APPLY TO ABDOMINAL FOLD Omeprazole (Omeprazole) 20 Mg Capsule.dr, 20 MG PO DAILY, (Reported) Rivaroxaban (Xarelto) 20 Mg Tablet, 20 MG PO DAILY, (Reported) Ropinirole HCl (Ropinirole HCl) 0.25 Mg Tab, 0.25 MG PO DAILY, (Reported) Rosuvastatin Calcium (Crestor) 20 Mg Tab, 20 MG PO QHS, (Reported) Senna (Senna Lax) 8.6 Mg Tablet, 17.2 MG PO QHS, (Reported) Sertraline HCl (Sertraline HCl) 50 Mg Tablet, 50 MG PO QHS, (Reported) Sitagliptin (Januvia) 50 Mg Tablet, 50 MG PO DAILY, (Reported) Scheduled PRN Acetaminophen (Acetaminophen) 325 Mg Tablet, 650 MG PO Q4H PRN for PAIN / FEVER, (Reported) Bisacodyl (Bisacodyl) 10 Mg Supp.rect, 10 MG OH DAILY PRN for CONSTIPATION, (Reported) Magnesium Hydroxide (Milk of Magnesia) 400 Mg/5 Ml Oral.susp, 30 ML PO DAILY PRN for CONSTIPATION, (Reported) Oxycodone HCl/Acetaminophen (Percocet 5-325 mg Tablet) 1 Each Tablet, 1 TAB PO Q4H PRN for PAIN, (Reported) Sodium Phosphate,[place]-Dibasic (Enema) 133 Ml Enema, 1 OSMANY OH DAILY PRN for CONSTIPATION, (Reported) glucagon HCL (glucagon HCL) 1 Mg/1 Ml Vial, 1 MG IM PRN PRN for LOW BLOOD SUGAR, (Reported) Allergies Coded Allergies: Penicillins (Verified Allergy, Intermediate, mouth swelling, 03/11/20) Past Medical History Medical History Non healing left urrutia medially due to venous stasis Morbid obesity Chronic atrial fibrillation PAD s/p right above knee amputation amputation after failed angioplasties and bypass. 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 S/p partial nephrectomy Lung nodule stable since 2012. Gout GERD depression Constipation Diverticulosis RLS Surgical History Bilateral lower extremity angioplasties RIGHT FEMORAL TIBIAL ARTERY BYPASS 08/2016 Left CAROTID ENDARTERECTOMY Right varicose vein stripping. Right AKA Social History * Smoker: former Smoker Alcohol: Denies Drugs: denies A-FIB/CHADSVASC A-FIB History Current/History of A-Fib/PAF?: Yes Current PO Anticoag Therapy: Yes Review of Systems Constitutional: Denies: Chills, Fever Eyes: Denies: Pain ENT: Denies: Head Aches Skin: Reports: Rash, Lesions Pulmonary: Denies: Dyspnea, Cough Cardiovascular: Denies: Chest Pain Gastrointestinal: Denies: Nausea, Vomiting Genitourinary: Denies: Dysuria, Frequency Hematologic: Denies: Bruising Endocrine: Denies: Polydipsia Musculoskeletal: Denies: Neck Pain Neurological: Denies: Confusion Psych: Reports: Mood Normal Physical Examination General Exam: Positive: Alert, Cooperative Eye Exam: Positive: PERRLA ENT Exam: Positive: Atraumatic Neck Exam: Positive: Supple; Negative: JVD Chest Exam: Positive: Clear to auscultation Heart Exam: Positive: Irregular Rhythm Telemetry: Positive: Atrial fibrillation Abdomen Exam: Positive: Normal bowel sounds Extremity Exam: Negative: Clubbing Skin Exam: Positive: Lesion (left groin area erythema and above-knee popliteal artery bypass area mild erythematous )) Neuro Exam: Positive: Normal Tone Psych Exam: Positive: Oriented x 3 Vital Signs Vital Signs Date Time Temp Pulse Resp B/P (MAP) Pulse Ox O2 Delivery O2 Flow Rate FiO2 04/02/20 14:53 96.7 73 22 167/70 (102) 99 Room Air Laboratory Data Labs 24H Laboratory Tests 2 04/02/20 11:08: Coronavirus (COVID-19)(PCR) NEGATIVE, Influenza Type A (RT-PCR) NEGATIVE, Influenza Type B (RT-PCR) NEGATIVE, Respiratory Syncytial Virus (PCR) NEGATIVE 04/02/20 11:22: Immature Granulocyte % (Auto) 1.6, Neutrophils (%) (Auto) 75.7H, Lymphocytes (%) (Auto) 13.5L, Monocytes (%) (Auto) 7.0H, Eosinophils (%) (Auto) 1.6, Basophils (%) (Auto) 0.6, Neutrophils # (Auto) 7.3, Lymphocytes # (Auto) 1.3L, Monocytes # (Auto) 0.7, Eosinophils # (Auto) 0.2, Basophils # (Auto) 0.1, Nucleated Red Blood Cells % (auto) 0.0, Erythrocyte Sedimentation Rate 93H, Prothrombin Time 20.7H, Prothromb Time International Ratio 1.74, Activated Partial Thromboplast Time 54.7H, Anion Gap 8, Glomerular Filtration Rate > 60.0, Lactic Acid Level 2.0, Calcium Level 8.6L, Total Bilirubin 0.3, Direct Bilirubin 0.0, Aspartate Amino Transf (AST/SGOT) 24, Alanine Aminotransferase (ALT/SGPT) 23, Alkaline Phosphatase 105, Total Creatine Kinase 90, Creatine Kinase MB 1.5, Creatine Kinase MB Relative Index 1.66, Troponin I < 0.02, C-Reactive Protein, Quantitative 8.74H, Total Protein 6.5, Albumin 2.7L, Albumin/Globulin Ratio 0.7L 04/02/20 13:23: Urine Color YELLOW, Urine Appearance CLOUDYH, Urine pH 5.0, Urine Specific [place] 1.008, Urine Protein NEGATIVE, Urine Glucose (UA) NEGATIVE, Urine Ketones NEGATIVE, Urine Blood 2+H, Urine Nitrite POSITIVEH, Urine Bilirubin NEGATIVE, Urine Urobilinogen 0.2, Urine Leukocyte Esterase 3+H, Urine WBC (Auto) 60H, Urine RBC (Auto) 12H, Urine Hyaline Casts (Auto) 0, Urine Bacteria (Auto) 2+H, Urine Squamous Epithelial Cells 3, Urine Mucus (Auto) SMALL, Urine Sperm (Auto) CBC/BMP Laboratory Tests 04/02/20 11:22 Microbiology Microbiology 04/02/20 Urine Culture, Received Pending 04/02/20 Blood Culture, Received Pending 04/02/20 Blood Culture, Received Pending Assessment/Plan Patient is 70 year old female with PMH of Chronic Afib, PAD with right above knee amputation and left urrutia chronic non healing venous stasis ulcer, 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 The procedure was done on 03/25/20. Today, in the Dr Geronimo office patient was found to have erythema around surgical with small amount of pus in the left groin area. In ER patient was found to have no leukocytosis. CT scan was done and showed Edema/inflammation in the left ing uinal region with overlying skin carolyn. There are also foci of air in the soft tissues with no drainable abscess or fluid collection. 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 Problems (1) Cellulitis of groin, left Status: Acute Problem Text: Vancomycin IV, cefepime IV There is concern that the graft can be infected CT negative for abscess Bacitracin locally (2) CVA, old, hemiparesis Status: Chronic Problem Text: Aspiration precaution Follow-up with neurologist outpatient settings Continue aspirin and statin (3) Chronic atrial fibrillation Status: Chronic Problem Text: Continue oral target anticoagulation Heart rate is under control (4) Hypertension Status: Chronic Problem Text: Continue home cardioprotective medications (5) Hyperlipidemia Status: Chronic Problem Text: Continue statin (6) PVD (peripheral vascular disease) Status: Chronic Problem Text: Follow-up with vascular surgeon (7) Diabetes mellitus Status: Chronic Problem Text: Insulin sliding scale Diabetes diet Detemir twice a day Plan / VTE VTE Prophylaxis Ordered?: Yes VINAY WHEELER DO Apr 02, 2020 16:10
[2020-04-02] MEDS ORDERED: BISACODYL 10 MG SUPP PR PRN (16:15)
[2020-04-02] MEDS ORDERED: MOM 30ML SUSPENSION UDC PO PRN (16:15)
[2020-04-02] MEDS ORDERED: FLEET ENEMA PR PRN (16:15)
[2020-04-02] MEDS ORDERED: MORPHINE 2 MG/ML 1ML VIAL (J2270) IV PRN (17:45)
[2020-04-02 18:20] VITALS: BP 116/66
[2020-04-02] MEDS ORDERED: DEXTROSE 50% 50 ML SYRINGE IV PRN (18:45)
[2020-04-02] MEDS ORDERED: GLUCOSE 4GM CHEW TABLET PO PRN (18:45)
[2020-04-02] MEDS ORDERED: GLUCAGON INJ 1MG VIAL SC PRN (18:45)
[2020-04-02] MEDS ORDERED: CEFEPIME HCL 1 GM in D5W MINI-BAG PLUS 50 ML IV SCH (20:00)
[2020-04-02] MEDS: HumaLOG INSULIN (NovoLOG) PER UNIT SC SCH (20:52)
[2020-04-02] MEDS: SERTRALINE HCL 50 MG TAB PO SCH (21:51)
[2020-04-02] MEDS: ROSUVASTATIN 10 MG TAB (CRESTOR) PO SCH (21:51)
[2020-04-02] MEDS: SENNA 8.6 MG TAB (SENOKOT) PO SCH (21:51)
[2020-04-02] MEDS: CEFEPIME HCL 1 GM in D5W MINI-BAG PLUS 50 ML IV SCH (21:51)
[2020-04-02] MEDS: MICONAZOLE 2 % POWDER (DESENEX) TOP SCH (21:52)
[2020-04-02] MEDS: LATANOPROST 0.005% OPHTH SOLN 2.5 ML OU SCH (21:52)
[2020-04-02 22:00] VITALS: BP 148/71
[2020-04-03] MEDS: VANCOMYCIN HCL 1,000 MG, VIAL MATE ADAPTER 1 EACH in D5W 250 ML IV SCH ×3 (00:15→23:43)
[2020-04-03 06:00] VITALS: BP 129/88
[2020-04-03] MEDS: PERCOCET 5MG/325MG TAB PO PRN ×3 (06:34→18:17)
[2020-04-03 06:44] LABS: ALBUMIN 2.4 GM/DL (3.2-5.2); ALT/SGPT 20 U/L (12-78); BILIRUBIN,TOTAL 0.3 MG/DL (0.2-1.0); BLOOD UREA NITROGEN 12 MG/DL (7-18); CARBON DIOXIDE LEVEL 25 MEQ/L (21-32); CHLORIDE LEVEL 105 MEQ/L (98-107); CREATININE FOR GFR 0.93 MG/DL (0.55-1.30); GLOMERULAR FILTRATION RATE > 60.0 (>45); GLUCOSE, FASTING 144 MG/DL (70-100); MAGNESIUM LEVEL 1.8 MG/DL (1.8-2.4); POTASSIUM SERUM 3.7 MEQ/L (3.5-5.1); SODIUM LEVEL 140 MEQ/L (136-145); TOTAL PROTEIN 6.2 GM/DL (6.4-8.2)
[2020-04-03 07:08] LABS: HEMOGLOBIN 9.6 g/dl (12.0-15.5); MEAN CORPUSCULAR HEMOGLOBIN 26.1 pg (27.0-33.0); MEAN CORPUSCULAR HGB CONC 29.1 g/dl (32.0-36.5); MEAN CORPUSCULAR VOLUME 89.7 fl (80.0-96.0); PLATELET COUNT, AUTOMATED 340 10^3/uL (150-450); RED BLOOD COUNT 3.68 10^6/uL (4.00-5.40); WHITE BLOOD COUNT 8.3 10^3/uL (4.0-10.0)
[2020-04-03] MEDS ORDERED: ENOXAPARIN 40MG/0.4ML SYRINGE (J1650 PER 10MG) SC SCH (09:00)
[2020-04-03] MEDS: CEFEPIME HCL 1 GM in D5W MINI-BAG PLUS 50 ML IV SCH ×2 (09:03→20:06)
[2020-04-03] MEDS: HumaLOG INSULIN (NovoLOG) PER UNIT SC SCH ×4 (09:04→21:00)
[2020-04-03] MEDS: LEVEMIR (INSULIN DETEMIR) 1 UNITS/0.01ML SC SCH (09:04)
[2020-04-03] MEDS: OMEPRAZOLE 20 MG CAP PO SCH (09:05)
[2020-04-03] MEDS: rOPINIRole 0.25 MG TAB(REQUIP) PO SCH (09:05)
[2020-04-03] MEDS: FERROUS SULFATE 325MG TAB PO SCH (09:05)
[2020-04-03] MEDS: ASPIRIN 81 MG CHEW TABLET PO SCH (09:05)
[2020-04-03] MEDS: RIVAROXABAN 20 MG TAB (XARELTO) PO SCH (09:05)
[2020-04-03] MEDS: allopurinoL 100 MG TAB PO SCH (09:05)
[2020-04-03] MEDS: FUROSEMIDE 40 MG TAB PO SCH (09:05)
[2020-04-03] MEDS: METOPROLOL TART 50 MG TAB PO SCH (09:13)
[2020-04-03] MEDS: MICONAZOLE 2 % POWDER (DESENEX) TOP SCH ×2 (09:32→20:07)
[2020-04-03 14:00] VITALS: BP 147/66
--- NOTE | 2020-04-03 14:34 | IPNPDOC ---
Text Note Date of Service The patient was seen on 04/03/20. NOTE Subjective: Patient stated that she feels better today. 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 The procedure was done on 03/25/20. Today, in the Dr Geronimo office patient was found to have erythema around surgical with small amount of pus in the left groin area. In ER patient was found to have no leukocytosis. CT scan was done and showed Edema/inflammation in the left inguinal region with overlying skin carolyn. There are also foci of air in the soft tissues with no drainable abscess or fluid collection. 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 Problems (1) Cellulitis of groin, left Vancomycin IV, cefepime IV I talked to Dr Geronimo yesterday she gave rec about wound care CT negative for abscess Bacitracin locally (2) CVA, old, hemiparesis Aspiration precaution Follow-up with neurologist outpatient settings Continue aspirin and statin (3) Chronic atrial fibrillation Continue oral target anticoagulation Heart rate is under control (4) Hypertension Continue home cardioprotective medications (5) Hyperlipidemia Continue statin (6) PVD (peripheral vascular disease) Follow-up with vascular surgeon (7) Diabetes mellitus Insulin sliding scale Diabetes diet Detemir twice a day VS,Fishbone, I+O VS, Fishbone, I+O Laboratory Tests 04/03/20 05:43 04/03/20 06:55 Vital Signs Date Time Temp Pulse Resp B/P (MAP) Pulse Ox O2 Delivery O2 Flow Rate FiO2 04/03/20 12:46 18 04/03/20 09:13 83 131/68 1/13/21 06:34 Room Air 04/03/20 06:00 97.9 98 I&O- Last 24 Hours up to 6 AM 04/03/20 06:00 Intake Total 1700 ml Output Total 250 ml Balance 1450 ml VINAY WHEELER DO Apr 03, 2020 14:34
[2020-04-03] MEDS: LATANOPROST 0.005% OPHTH SOLN 2.5 ML OU SCH (20:06)
[2020-04-03] MEDS: SERTRALINE HCL 50 MG TAB PO SCH (20:06)
[2020-04-03] MEDS: SENNA 8.6 MG TAB (SENOKOT) PO SCH (20:06)
[2020-04-03] MEDS: ROSUVASTATIN 10 MG TAB (CRESTOR) PO SCH (20:06)
[2020-04-03 22:00] VITALS: BP 160/71
[2020-04-04] MEDS: PERCOCET 5MG/325MG TAB PO PRN ×3 (01:22→20:08)
[2020-04-04] MEDS: BACITRACIN OINTMENT 30GM TUBE TOP PRN ×2 (02:37→20:06)
[2020-04-04 06:00] VITALS: BP 158/82
[2020-04-04] MEDS: CEFEPIME HCL 1 GM in D5W MINI-BAG PLUS 50 ML IV SCH ×2 (08:25→20:05)
[2020-04-04] MEDS: HumaLOG INSULIN (NovoLOG) PER UNIT SC SCH ×4 (08:26→21:00)
[2020-04-04] MEDS: FERROUS SULFATE 325MG TAB PO SCH (08:27)
[2020-04-04] MEDS: OMEPRAZOLE 20 MG CAP PO SCH (08:27)
[2020-04-04] MEDS: ASPIRIN 81 MG CHEW TABLET PO SCH (08:27)
[2020-04-04] MEDS: LEVEMIR (INSULIN DETEMIR) 1 UNITS/0.01ML SC SCH (08:27)
[2020-04-04] MEDS: allopurinoL 100 MG TAB PO SCH (08:27)
[2020-04-04] MEDS: RIVAROXABAN 20 MG TAB (XARELTO) PO SCH (08:27)
[2020-04-04] MEDS: rOPINIRole 0.25 MG TAB(REQUIP) PO SCH (08:28)
[2020-04-04] MEDS: FUROSEMIDE 40 MG TAB PO SCH (08:28)
[2020-04-04] MEDS: METOPROLOL TART 50 MG TAB PO SCH (08:32)
[2020-04-04] MEDS: MICONAZOLE 2 % POWDER (DESENEX) TOP SCH ×2 (08:33→20:05)
[2020-04-04] MEDS: VANCOMYCIN HCL 750 MG, VIAL MATE ADAPTER 1 EACH in D5W 250 ML IV SCH (12:42)
[2020-04-04 14:00] VITALS: BP 154/80
[2020-04-04] MEDS: ROSUVASTATIN 10 MG TAB (CRESTOR) PO SCH (20:05)
[2020-04-04] MEDS: SENNA 8.6 MG TAB (SENOKOT) PO SCH (20:05)
[2020-04-04] MEDS: SERTRALINE HCL 50 MG TAB PO SCH (20:05)
[2020-04-04] MEDS: LATANOPROST 0.005% OPHTH SOLN 2.5 ML OU SCH (20:08)
[2020-04-04 22:00] VITALS: BP_SYST 102; BP_SYST 117; BP_DIAS 54; BP_DIAS 70
[2020-04-05] MEDS: VANCOMYCIN HCL 750 MG, VIAL MATE ADAPTER 1 EACH in D5W 250 ML IV SCH ×2 (00:43→16:31)
[2020-04-05 06:00] VITALS: BP 166/89
[2020-04-05] MEDS: CEFEPIME HCL 1 GM in D5W MINI-BAG PLUS 50 ML IV SCH ×3 (08:30→21:37)
[2020-04-05] MEDS: rOPINIRole 0.25 MG TAB(REQUIP) PO SCH (08:48)
[2020-04-05] MEDS: RIVAROXABAN 20 MG TAB (XARELTO) PO SCH (08:48)
[2020-04-05] MEDS: FUROSEMIDE 40 MG TAB PO SCH (08:48)
[2020-04-05] MEDS: LEVEMIR (INSULIN DETEMIR) 1 UNITS/0.01ML SC SCH (08:48)
[2020-04-05] MEDS: FERROUS SULFATE 325MG TAB PO SCH (08:48)
[2020-04-05] MEDS: HumaLOG INSULIN (NovoLOG) PER UNIT SC SCH ×4 (08:48→20:36)
[2020-04-05] MEDS: OMEPRAZOLE 20 MG CAP PO SCH (08:49)
[2020-04-05] MEDS: ASPIRIN 81 MG CHEW TABLET PO SCH (08:49)
[2020-04-05] MEDS: allopurinoL 100 MG TAB PO SCH (08:49)
[2020-04-05] MEDS: MICONAZOLE 2 % POWDER (DESENEX) TOP SCH ×2 (08:49→21:37)
[2020-04-05] MEDS: METOPROLOL TART 50 MG TAB PO SCH (08:52)
[2020-04-05 09:43] LABS: BASO # 0.1 10^3/uL (0.0-0.2); BASO % 0.6 % (0.0-1.0); EOS # 0.2 10^3/uL (0.0-0.5); EOS % 2.3 % (0.0-3.0); HEMATOCRIT 34.7 % (36.0-47.0); HEMOGLOBIN 10.1 g/dl (12.0-15.5); LYMPH # 1.3 10^3/uL (1.5-5.0); LYMPH % 15.4 % (24.0-44.0); MEAN CORPUSCULAR HEMOGLOBIN 26.4 pg (27.0-33.0); MEAN CORPUSCULAR HGB CONC 29.1 g/dl (32.0-36.5); MEAN CORPUSCULAR VOLUME 90.8 fl (80.0-96.0); MONO # 0.5 10^3/uL (0.0-0.8); MONO % 5.6 % (0.0-5.0); NEUTROPHILS # 6.4 10^3/uL (1.5-8.5); NEUTROPHILS % 74.7 % (36.0-66.0); PLATELET COUNT, AUTOMATED 345 10^3/uL (150-450); RED BLOOD COUNT 3.82 10^6/uL (4.00-5.40); WHITE BLOOD COUNT 8.5 10^3/uL (4.0-10.0)
[2020-04-05 10:07] LABS: BLOOD UREA NITROGEN 11 MG/DL (7-18); CALCIUM LEVEL 8.2 MG/DL (8.8-10.2); CARBON DIOXIDE LEVEL 29 MEQ/L (21-32); CHLORIDE LEVEL 104 MEQ/L (98-107); CREATININE FOR GFR 0.94 MG/DL (0.55-1.30); GLOMERULAR FILTRATION RATE > 60.0 (>45); GLUCOSE, FASTING 280 MG/DL (70-100); POTASSIUM SERUM 3.7 MEQ/L (3.5-5.1); SODIUM LEVEL 140 MEQ/L (136-145)
[2020-04-05] MEDS: PERCOCET 5MG/325MG TAB PO PRN ×2 (11:58→21:39)
[2020-04-05 14:00] VITALS: BP 160/66
[2020-04-05] MEDS ORDERED: LIDOCAINE 1% MDV 20ML VIAL As Ordered ONE (14:03)
--- NOTE | 2020-04-05 17:49 | REP ---
PROCEDURE NAME: MIDLINE INSERTION W/ SITERITE CLINICAL INFORMATION: need for IV abx; poor venous access. COMPARISON: None. PROCEDURE DESCRIPTION: The procedure was performed by SATNAM Lezama, under the direct supervision of Dr. Infante. The risks and benefits of the procedure were explained to the patient and an informed consent was obtained both verbally and written. Directly prior to the start of the procedure a formal time-out was completed in the procedure room. The left basilic vein was localized using ultrasound guidance. The skin was prepped and draped in sterile fashion. One mL of 1% lidocaine 10 mg/mL was used as a local anesthetic. Using ultrasound guidance the left basilic vein was cannulated, and a 0.018 guidewire was inserted. The needle was removed and a 4.5 [place] dilator and peel-away sheath was inserted over the guidewire. A 4.5 [place] single lumen catheter was cut to a length of 12 cm. The dilator was removed and the catheter was inserted over the guidewire. The peel-away sheath was removed and the catheter was flushed with heparinized saline as per hospital protocol. The catheter was affixed to the skin and a sterile dressing was applied. The patient tolerated the procedure well and there were no immediate complications. CONCLUSION: Mid line insertion into the left basilic vein. <Electronically signed by Emilie Tong > 04/05/20 [id number] <Electronically signed by Tiburcio Infante > 04/05/20 [id number]
[2020-04-05] MEDS: SODIUM CHLORIDE 0.9% INJ 10 ML SYR IV SCH (17:57)
--- NOTE | 2020-04-05 18:31 | IPNPDOC ---
Text Note Date of Service The patient was seen on 04/05/20. NOTE Subjective: No any acute events overnight. Patient stated that she feels better. 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 The procedure was done on 03/25/20. Today, in the Dr Isabella melton office patient was found to have erythema around surgical with small amount of pus in the left groin area. In ER patient was found to have no leukocytosis. CT scan was done and showed Edema/inflammation in the left inguinal region with overlying skin carolyn. There are also foci of air in the soft tissues with no drainable abscess or fluid collection. 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 Problems (1) Cellulitis of groin, left Markedly improved Vancomycin IV, cefepime IV I talked to Dr Geronimo she gave rec about wound care CT negative for abscess Bacitracin locally (2) CVA, old, hemiparesis Aspiration precaution Follow-up with neurologist outpatient settings Continue aspirin and statin (3) Chronic atrial fibrillation Continue oral target anticoagulation Heart rate is under control (4) Hypertension Continue home cardioprotective medications (5) Hyperlipidemia Continue statin (6) PVD (peripheral vascular disease) Follow-up with vascular surgeon (7) Diabetes mellitus Insulin sliding scale Diabetes diet Detemir twice a day VS,Fishbone, I+O VS, Fishbone, I+O Laboratory Tests 04/05/20 09:28 Vital Signs Date Time Temp Pulse Resp B/P (MAP) Pulse Ox O2 Delivery O2 Flow Rate FiO2 04/05/20 15:44 73 18 93 Room Air 04/05/20 14:10 99.4 04/05/20 14:00 160/66 (97) I&O- Last 24 Hours up to 6 AM 04/05/20 05:59 Intake Total 1940 ml Output Total 1650 ml Balance 290 ml VINAY WHEELER DO Apr 05, 2020 18:31
[2020-04-05] MEDS: SERTRALINE HCL 50 MG TAB PO SCH (21:36)
[2020-04-05] MEDS: SENNA 8.6 MG TAB (SENOKOT) PO SCH (21:36)
[2020-04-05] MEDS: ROSUVASTATIN 10 MG TAB (CRESTOR) PO SCH (21:36)
[2020-04-05] MEDS: LATANOPROST 0.005% OPHTH SOLN 2.5 ML OU SCH (21:37)
[2020-04-05] MEDS: BACITRACIN OINTMENT 30GM TUBE TOP PRN (21:37)
[2020-04-05 22:00] VITALS: BP 135/81
[2020-04-06] MEDS: VANCOMYCIN HCL 750 MG, VIAL MATE ADAPTER 1 EACH in D5W 250 ML IV SCH (01:14)
[2020-04-06] MEDS: SODIUM CHLORIDE 0.9% INJ 10 ML SYR IV PRN ×2 (02:43→09:20)
[2020-04-06] MEDS: SODIUM CHLORIDE 0.9% INJ 10 ML SYR IV SCH ×2 (05:17→17:27)
[2020-04-06 06:00] VITALS: BP 140/60
[2020-04-06] MEDS: LEVEMIR (INSULIN DETEMIR) 1 UNITS/0.01ML SC SCH (08:48)
[2020-04-06] MEDS: ASPIRIN 81 MG CHEW TABLET PO SCH (08:49)
[2020-04-06] MEDS: OMEPRAZOLE 20 MG CAP PO SCH (08:49)
[2020-04-06] MEDS: HumaLOG INSULIN (NovoLOG) PER UNIT SC SCH ×4 (08:49→21:00)
[2020-04-06] MEDS: RIVAROXABAN 20 MG TAB (XARELTO) PO SCH (08:50)
[2020-04-06] MEDS: allopurinoL 100 MG TAB PO SCH (08:50)
[2020-04-06] MEDS: FUROSEMIDE 40 MG TAB PO SCH (08:50)
[2020-04-06] MEDS: PERCOCET 5MG/325MG TAB PO PRN ×2 (08:51→21:32)
[2020-04-06] MEDS: METOPROLOL TART 50 MG TAB PO SCH (08:52)
[2020-04-06] MEDS: FERROUS SULFATE 325MG TAB PO SCH (08:52)
[2020-04-06] MEDS: rOPINIRole 0.25 MG TAB(REQUIP) PO SCH (08:52)
[2020-04-06] MEDS: DOXYCYCLINE HYCLATE 100MG TABLET PO SCH ×2 (09:00→21:31)
[2020-04-06] MEDS: MICONAZOLE 2 % POWDER (DESENEX) TOP SCH ×2 (09:00→21:33)
[2020-04-06 14:00] VITALS: BP 141/76
--- NOTE | 2020-04-06 15:20 | IPNPDOC ---
Text Note Date of Service The patient was seen on 04/06/20. NOTE Subjective: No any acute events overnight. 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 The procedure was done on 03/25/20. Today, in the Dr Geronimo office patient was found to have erythema around surgical with small amount of pus in the left groin area. In ER patient was found to have no leukocytosis. CT scan was done and showed Edema/inflammation in the left ingu inal region with overlying skin carolyn. There are also foci of air in the soft tissues with no drainable abscess or fluid collection. 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 Problems (1) Cellulitis of groin, left Markedly improved changed ab Iv to PO I talked to Dr Geronimo she gave rec about wound care CT negative for abscess Bacitracin locally (2) CVA, old, hemiparesis Aspiration precaution Follow-up with neurologist outpatient settings Continue aspirin and statin (3) Chronic atrial fibrillation Continue oral target anticoagulation Heart rate is under control (4) Hypertension Continue home cardioprotective medications (5) Hyperlipidemia Continue statin (6) PVD (peripheral vascular disease) Follow-up with vascular surgeon (7) Diabetes mellitus Insulin sliding scale Diabetes diet Detemir twice a day VS,Fishbone, I+O VS, Fishbone, I+O Vital Signs Date Time Temp Pulse Resp B/P (MAP) Pulse Ox O2 Delivery O2 Flow Rate FiO2 04/06/20 14:00 97.6 73 17 141/76 (97) 98 Room Air I&O- Last 24 Hours up to 6 AM 04/06/20 06:00 Intake Total 1180 ml Output Total 200 ml Balance 980 ml VINAY WHEELER DO Apr 06, 2020 15:20
[2020-04-06] MEDS: SENNA 8.6 MG TAB (SENOKOT) PO SCH (21:31)
[2020-04-06] MEDS: SERTRALINE HCL 50 MG TAB PO SCH (21:31)
[2020-04-06] MEDS: ROSUVASTATIN 10 MG TAB (CRESTOR) PO SCH (21:31)
[2020-04-06] MEDS: LATANOPROST 0.005% OPHTH SOLN 2.5 ML OU SCH (21:33)
[2020-04-06 22:00] VITALS: BP 176/74
[2020-04-06 22:15] VITALS: BP 138/64
[2020-04-07] MEDS: SODIUM CHLORIDE 0.9% INJ 10 ML SYR IV SCH ×2 (05:34→17:12)
[2020-04-07 06:00] VITALS: BP 142/80
[2020-04-07 07:31] LABS: BASO # 0.1 10^3/uL (0.0-0.2); BASO % 0.7 % (0.0-1.0); EOS # 0.2 10^3/uL (0.0-0.5); EOS % 2.3 % (0.0-3.0); HEMATOCRIT 33.8 % (36.0-47.0); LYMPH # 1.7 10^3/uL (1.5-5.0); LYMPH % 22.7 % (24.0-44.0); MEAN CORPUSCULAR HEMOGLOBIN 26.6 pg (27.0-33.0); MEAN CORPUSCULAR HGB CONC 29.6 g/dl (32.0-36.5); MEAN CORPUSCULAR VOLUME 89.9 fl (80.0-96.0); MONO # 0.5 10^3/uL (0.0-0.8); MONO % 6.8 % (0.0-5.0); NEUTROPHILS # 4.8 10^3/uL (1.5-8.5); PLATELET COUNT, AUTOMATED 372 10^3/uL (150-450); RED BLOOD COUNT 3.76 10^6/uL (4.00-5.40); WHITE BLOOD COUNT 7.3 10^3/uL (4.0-10.0)
[2020-04-07 07:59] LABS: BLOOD UREA NITROGEN 16 MG/DL (7-18); CALCIUM LEVEL 8.5 MG/DL (8.8-10.2); CARBON DIOXIDE LEVEL 28 MEQ/L (21-32); CHLORIDE LEVEL 106 MEQ/L (98-107); CREATININE FOR GFR 0.82 MG/DL (0.55-1.30); GLOMERULAR FILTRATION RATE > 60.0 (>45); GLUCOSE, FASTING 175 MG/DL (70-100); MAGNESIUM LEVEL 2.2 MG/DL (1.8-2.4); POTASSIUM SERUM 3.8 MEQ/L (3.5-5.1); SODIUM LEVEL 142 MEQ/L (136-145)
[2020-04-07] MEDS: LEVEMIR (INSULIN DETEMIR) 1 UNITS/0.01ML SC SCH (08:34)
[2020-04-07] MEDS: DOXYCYCLINE HYCLATE 100MG TABLET PO SCH ×2 (08:34→21:48)
[2020-04-07] MEDS: HumaLOG INSULIN (NovoLOG) PER UNIT SC SCH ×4 (08:34→20:54)
[2020-04-07] MEDS: RIVAROXABAN 20 MG TAB (XARELTO) PO SCH (08:34)
[2020-04-07] MEDS: rOPINIRole 0.25 MG TAB(REQUIP) PO SCH (08:35)
[2020-04-07] MEDS: FERROUS SULFATE 325MG TAB PO SCH (08:35)
[2020-04-07] MEDS: FUROSEMIDE 40 MG TAB PO SCH (08:35)
[2020-04-07] MEDS: OMEPRAZOLE 20 MG CAP PO SCH (08:35)
[2020-04-07] MEDS: allopurinoL 100 MG TAB PO SCH (08:35)
[2020-04-07] MEDS: ASPIRIN 81 MG CHEW TABLET PO SCH (08:35)
[2020-04-07] MEDS: METOPROLOL TART 50 MG TAB PO SCH (08:36)
[2020-04-07] MEDS: MICONAZOLE 2 % POWDER (DESENEX) TOP SCH ×2 (08:37→21:47)
[2020-04-07] MEDS ORDERED: LEVEMIR (INSULIN DETEMIR) 1 UNITS/0.01ML SC SCH (09:00)
--- NOTE | 2020-04-07 11:04 | IPNPDOC ---
Text Note Date of Service The patient was seen on 04/07/20. NOTE Subjective: No any acute events overnight. 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 The procedure was done on 03/25/20. Today, in the Dr Geronimo office patient was found to have erythema around surgical with small amount of pus in the left groin area. In ER patient was found to have no leukocytosis. CT scan was done and showed Edema/inflammation in the left inguinal region with overlying skin carolyn. There are also foci of air in the soft tissues with no drainable abscess or fluid collection. 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 Problems (1) Cellulitis of groin, left Markedly improved changed ab Iv to PO I talked to Dr Geronimo she gave rec about wound care CT negative for abscess Bacitracin locally (2) CVA, old, hemiparesis Aspiration precaution Follow-up with neurologist outpatient settings Continue aspirin and statin (3) Chronic atrial fibrillation Continue oral target anticoagulation Heart rate is under control (4) Hypertension Continue home cardioprotective medications Added lisinopril a.m. (5) Hyperlipidemia Continue statin (6) PVD (peripheral vascular disease) Follow-up with vascular surgeon (7) Diabetes mellitus Insulin sliding scale Diabetes diet Detemir twice a day Patient transferred for ALC VS,James, I+O VS, Fishbone, I+O Laboratory Tests 04/07/20 06:30 Vital Signs Date Time Temp Pulse Resp B/P (MAP) Pulse Ox O2 Delivery O2 Flow Rate FiO2 04/07/20 08:36 118 186/84 04/07/20 06:00 97.9 18 99 Room Air I&O- Last 24 Hours up to 6 AM 04/07/20 06:00 Intake Total 860 ml Output Total 0 ml Balance 860 ml VINAY WHEELER DO Apr 07, 2020 11:04
[2020-04-07] MEDS: PERCOCET 5MG/325MG TAB PO PRN (18:12)
[2020-04-07] MEDS: SERTRALINE HCL 50 MG TAB PO SCH (21:47)
[2020-04-07] MEDS: LATANOPROST 0.005% OPHTH SOLN 2.5 ML OU SCH (21:47)
[2020-04-07] MEDS: SENNA 8.6 MG TAB (SENOKOT) PO SCH (21:47)
[2020-04-07] MEDS: ROSUVASTATIN 10 MG TAB (CRESTOR) PO SCH (21:48)
[2020-04-08 06:00] VITALS: BP 169/92
[2020-04-08] MEDS: SODIUM CHLORIDE 0.9% INJ 10 ML SYR IV SCH ×2 (06:19→17:57)
[2020-04-08 06:22] LABS: BASO # 0.1 10^3/uL (0.0-0.2); BASO % 0.7 % (0.0-1.0); EOS # 0.2 10^3/uL (0.0-0.5); EOS % 2.1 % (0.0-3.0); HEMOGLOBIN 10.2 g/dl (12.0-15.5); LYMPH # 1.8 10^3/uL (1.5-5.0); LYMPH % 20.5 % (24.0-44.0); MEAN CORPUSCULAR HEMOGLOBIN 26.5 pg (27.0-33.0); MEAN CORPUSCULAR HGB CONC 29.1 g/dl (32.0-36.5); MEAN CORPUSCULAR VOLUME 90.9 fl (80.0-96.0); MONO # 0.7 10^3/uL (0.0-0.8); MONO % 7.7 % (0.0-5.0); NEUTROPHILS # 6.1 10^3/uL (1.5-8.5); NEUTROPHILS % 68.3 % (36.0-66.0); PLATELET COUNT, AUTOMATED 400 10^3/uL (150-450); RED BLOOD COUNT 3.85 10^6/uL (4.00-5.40); WHITE BLOOD COUNT 8.9 10^3/uL (4.0-10.0)
[2020-04-08 06:49] LABS: BLOOD UREA NITROGEN 15 MG/DL (7-18); CALCIUM LEVEL 8.7 MG/DL (8.8-10.2); CARBON DIOXIDE LEVEL 27 MEQ/L (21-32); CHLORIDE LEVEL 107 MEQ/L (98-107); GLOMERULAR FILTRATION RATE > 60.0 (>45); GLUCOSE, FASTING 176 MG/DL (70-100); MAGNESIUM LEVEL 2.1 MG/DL (1.8-2.4); POTASSIUM SERUM 3.7 MEQ/L (3.5-5.1); SODIUM LEVEL 142 MEQ/L (136-145)
[2020-04-08] MEDS: LEVEMIR (INSULIN DETEMIR) 1 UNITS/0.01ML SC SCH (08:19)
[2020-04-08] MEDS: HumaLOG INSULIN (NovoLOG) PER UNIT SC SCH ×4 (08:20→21:00)
[2020-04-08] MEDS: DOXYCYCLINE HYCLATE 100MG TABLET PO SCH ×2 (08:21→22:05)
[2020-04-08] MEDS: allopurinoL 100 MG TAB PO SCH (08:21)
[2020-04-08] MEDS: FUROSEMIDE 40 MG TAB PO SCH (08:21)
[2020-04-08] MEDS: FERROUS SULFATE 325MG TAB PO SCH (08:21)
[2020-04-08] MEDS: rOPINIRole 0.25 MG TAB(REQUIP) PO SCH (08:21)
[2020-04-08] MEDS: OMEPRAZOLE 20 MG CAP PO SCH (08:21)
[2020-04-08] MEDS: RIVAROXABAN 20 MG TAB (XARELTO) PO SCH (08:21)
[2020-04-08] MEDS: ASPIRIN 81 MG CHEW TABLET PO SCH (08:21)
[2020-04-08] MEDS: METOPROLOL TART 50 MG TAB PO SCH (08:23)
[2020-04-08] MEDS: MICONAZOLE 2 % POWDER (DESENEX) TOP SCH ×2 (08:23→22:06)
[2020-04-08] MEDS: PERCOCET 5MG/325MG TAB PO PRN ×2 (08:28→17:58)
[2020-04-08 14:00] VITALS: BP 118/71
--- NOTE | 2020-04-08 17:10 | IPNPDOC ---
Date Seen The patient was seen on 04/08/20. Progress Note Patient seen and examined. She was readmitted status post a left femoropopliteal bypass with PTFE and left femoral endarterectomy 2 weeks ago. She had fibrinous exudate and maceration of the skin around the incision in the left groin due to obesity and a large pannus with trapping of moisture due to her dependence and the weight of her pannus, as well as limited wound care at the assisted. Since her admission, the nurses here done a good job of changing the dressing twice a day and keeping everything clean and dry. This is definitely helped, but the patient still has fibrinous exudate at the carolyn. I discussed the option with her to debris the fibrinous exudate which I hope is superficial, and then either place a wound VAC or do a new primary closure and the patient adamantly refuses more surgery. I totally understand her hesitation, as surgery is extremely challenging for her, but we new going into this that healing was going to be a problem. Partially because of her obesity, partially because of her poor nutritional status, partially because she is dependent on wound care at the assisted that is at best inconsistent, partially because she has such poor skin and fascia integrity and it was extremely challenging to close her incisions. Nevertheless, after IV antibiotics and good wound care here, the patient looks much better. R hospitalist team plans to send her back to the assisted tomorrow, and I think it is likely going to be okay to do so. She is still at risk to break down her incisions, but we are hopeful that the wound care will be better this go around. She also will have oral antibiotics as well. The incision on the medial thigh is also a bit slow to heal. It does not have erythema or fibrinous exudate, but the skin around it is thin and sloughing with any touch cleaning or tape maneuver. We have use as little tape and adhesive is possible to preserve her skin, but it is extremely fragile regardless. I explained to the patient that if her incisions get infected and the graft gets infected, she will need a removal of the graft and likely will be at risk to lose her leg. This makes her tearful, but she still does not want skin debrideme nt or anything done surgically at this time. Therefore, we will continue to recommend twice daily, and when necessary, dressing changes to the left groin and left medial thigh. The incision should be thoroughly cleaned and dried, the carolyn wiped with an alcohol prep pad, dry gauze placed in the groin., And pillowcase or intra-dry over this to prevent moisture buildup. Anytime we can avoid fastening her dependence on the left side to minimize trapping fluid, it would be helpful. Also we should continue with local wound care on the left pretibial ulcers. We'd like to see the patient back in a week to check her incisions. We appreciate the opportunity to participate in the care of this patient. VS, I&O, 24H, Fishbone Vital Signs/I&O Vital Signs Date Time Temp Pulse Resp B/P (MAP) Pulse Ox O2 Delivery O2 Flow Rate FiO2 04/08/20 14:00 118/71 (87) 04/08/20 09:30 16 Room Air 04/08/20 08:23 91 04/08/20 06:00 96.8 93 I&O- Last 24 Hours up to 6 AM 04/08/20 06:00 Intake Total 780 ml Output Total 0 ml Balance 780 ml Laboratory Data 24H LABS Laboratory Tests 2 04/07/20 20:04: Bedside Glucose (Misc Panel) 165H 04/08/20 05:54: Immature Granulocyte % (Auto) 0.7, Neutrophils (%) (Auto) 68.3H, Lymphocytes (%) (Auto) 20.5L, Monocytes (%) (Auto) 7.7H, Eosinophils (%) (Auto) 2.1, Basophils ( %) (Auto) 0.7, Neutrophils # (Auto) 6.1, Lymphocytes # (Auto) 1.8, Monocytes # (Auto) 0.7, Eosinophils # (Auto) 0.2, Basophils # (Auto) 0.1, Nucleated Red Blood Cells % (auto) 0.0, Anion Gap 8, Glomerular Filtration Rate > 60.0, Calcium Level 8.7L, Magnesium Level 2.1 04/08/20 12:27: Bedside Glucose (Misc Panel) 292H 04/08/20 16:26: Bedside Glucose (Misc Panel) 130H CBC/BMP Laboratory Tests 04/08/20 05:54 Microbiology Microbiology 04/02/20 Urine Culture - Final, Complete 04/02/20 Blood Culture - Final, Complete NO GROWTH AFTER 5 DAYS 04/02/20 Blood Culture - Final, Complete NO GROWTH AFTER 5 DAYS VINEET OLIVO MD Apr 08, 2020 17:10
[2020-04-08] MEDS: SERTRALINE HCL 50 MG TAB PO SCH (22:05)
[2020-04-08] MEDS: ROSUVASTATIN 10 MG TAB (CRESTOR) PO SCH (22:05)
[2020-04-08] MEDS: LATANOPROST 0.005% OPHTH SOLN 2.5 ML OU SCH (22:05)
[2020-04-08] MEDS: SENNA 8.6 MG TAB (SENOKOT) PO SCH (22:05)
[2020-04-09] MEDS: SODIUM CHLORIDE 0.9% INJ 10 ML SYR IV SCH (05:36)
[2020-04-09 06:00] VITALS: BP 138/76
[2020-04-09] MEDS: PERCOCET 5MG/325MG TAB PO PRN (07:37)
[2020-04-09 07:57] LABS: BASO % 0.5 % (0.0-1.0); EOS # 0.2 10^3/uL (0.0-0.5); EOS % 2.5 % (0.0-3.0); HEMATOCRIT 33.8 % (36.0-47.0); LYMPH # 1.8 10^3/uL (1.5-5.0); LYMPH % 21.9 % (24.0-44.0); MEAN CORPUSCULAR HGB CONC 29.6 g/dl (32.0-36.5); MEAN CORPUSCULAR VOLUME 91.1 fl (80.0-96.0); MONO # 0.6 10^3/uL (0.0-0.8); MONO % 7.3 % (0.0-5.0); NEUTROPHILS # 5.4 10^3/uL (1.5-8.5); NEUTROPHILS % 66.9 % (36.0-66.0); PLATELET COUNT, AUTOMATED 376 10^3/uL (150-450); RED BLOOD COUNT 3.71 10^6/uL (4.00-5.40)
[2020-04-09 08:14] LABS: BLOOD UREA NITROGEN 19 MG/DL (7-18); CALCIUM LEVEL 8.5 MG/DL (8.8-10.2); CARBON DIOXIDE LEVEL 27 MEQ/L (21-32); CHLORIDE LEVEL 106 MEQ/L (98-107); CREATININE FOR GFR 0.87 MG/DL (0.55-1.30); GLOMERULAR FILTRATION RATE > 60.0 (>45); GLUCOSE, FASTING 164 MG/DL (70-100); POTASSIUM SERUM 4.3 MEQ/L (3.5-5.1); SODIUM LEVEL 141 MEQ/L (136-145)
[2020-04-09] MEDS: LEVEMIR (INSULIN DETEMIR) 1 UNITS/0.01ML SC SCH (08:36)
[2020-04-09] MEDS: FUROSEMIDE 40 MG TAB PO SCH (08:37)
[2020-04-09] MEDS: HumaLOG INSULIN (NovoLOG) PER UNIT SC SCH (08:37)
[2020-04-09] MEDS: DOXYCYCLINE HYCLATE 100MG TABLET PO SCH (08:37)
[2020-04-09] MEDS: ASPIRIN 81 MG CHEW TABLET PO SCH (08:40)
[2020-04-09] MEDS: allopurinoL 100 MG TAB PO SCH (08:40)
[2020-04-09] MEDS: FERROUS SULFATE 325MG TAB PO SCH (08:40)
[2020-04-09 08:41] VITALS: BP 140/57
[2020-04-09] MEDS: METOPROLOL TART 50 MG TAB PO SCH (08:41)
[2020-04-09] MEDS: MICONAZOLE 2 % POWDER (DESENEX) TOP SCH (08:43)
[2020-04-09] MEDS: OMEPRAZOLE 20 MG CAP PO SCH (08:45)
[2020-04-09] MEDS: RIVAROXABAN 20 MG TAB (XARELTO) PO SCH (08:45)
[2020-04-09] MEDS: rOPINIRole 0.25 MG TAB(REQUIP) PO SCH (08:45)
--- NOTE | 2020-04-09 08:57 | IPNPDOC ---
Text Note Date of Service The patient was seen on 04/09/20. NOTE Vascular surgery. Dr. Bernardo Patient is a 70-year-old female readmitted status post a left femoropopliteal bypass with PTFE and left femoral endarterectomy as per Dr. Bernardo 03/25/20. She had fibrinous exudate and maceration of the skin around the incision in the left groin due to obesity and a large pannus with trapping of moisture due to her dependence and the weight of her pannus, as well as limited wound care at the alf. Since her admission, she has had the dressing changed twice a day and keeping everything clean and dry. This is definitely helped, but the patient still has fibrinous exudate at the carolyn. Dr. Bernardo has discussed the option with her to debride the fibrinous exudate and then either place a wound VAC or do a new primary closure but the patient adamantly refuses more surgery. Overall the left groin incision and left thigh incision is looking better after IV antibiotics. There is still erythema and fibrinous exudate surrounding the left groin incision but this appears to be improving slowly. The incision on the medial thigh is also a bit slow to heal, but does not have erythema or fibrinous exudate. The skin around it is thin and sloughing with any touch cleaning or tape maneuver. We have use as little tape and adhesive is possible to preserve her skin, but it is extremely fragile. Tentative plan is for discharge back to [facility] as per hospitalist today. Patient will continue with oral antibiotics, oral doxycycline. Continue Xarelto/statin. Recommend to continue with twice daily dressing changes. Dry dressing changes to the left groin and left medial thigh. The incision should be thoroughly cleaned and dried, the carolyn wiped with an alcohol prep pad, dry gauze placed in the groin. A pillowcase or intra-dry over this to prevent moisture buildup. Anytime we can avoid fastening her depends on the left side to minimize trapping fluid it would be helpful. Also we should continue with local wound care on the left pretibial ulcers. We will plan to see the patient back in 5-7 days to recheck her incisions. We appreciate the opportunity to participate in the care of this patient. VS,James, I+O VS, Sene, I+O Laboratory Tests 04/09/20 07:09 Vital Signs Date Time Temp Pulse Resp B/P (MAP) Pulse Ox O2 Delivery O2 Flow Rate FiO2 04/09/20 08:41 82 140/57 04/09/20 08:10 18 04/09/20 06:00 96.9 95 Room Air I&O- Last 24 Hours up to 6 AM 04/09/20 05:59 Intake Total 1270 ml Output Total 0 ml Balance 1270 ml Renetta Pantoja Apr 09, 2020 08:56
[2020-04-09] MEDS ORDERED: DOXY-350 PO (10:03)
--- NOTE | 2020-04-09 19:56 | DS.PDOC ---
Discharge Summary General Date of Admission Apr 02, 2020 at 15:30 Date of Discharge 04/09/20 Discharge Summary PROCEDURES PERFORMED DURING STAY: [None]. ADMITTING DIAGNOSES: Cellulitis of groin, left CVA, old, hemiparesis Chronic atrial fibrillation Hypertension Hyperlipidemia PVD (peripheral vascular disease) Diabetes mellitus DISCHARGE DIAGNOSES: Cellulitis of groin, left CVA, old, hemiparesis Chronic atrial fibrillation Hypertension Hyperlipidemia PVD (peripheral vascular disease) Diabetes mellitus COMPLICATIONS/CHIEF COMPLAINT: Chronic Atrial Fib Pvd Cva Old Hemiparesis. 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 The procedure was done on 03/25/20. Today, in the Dr Geronimo office patient was found to have erythema around surgical with small amount of pus in the left groin area. In ER patient was found to have no leukocytosis. CT scan was done and showed Edema/inflammation in the left inguinal region with overlying skin carolyn. There are also foci of air in the soft tissues with no drainable abscess or fluid collection. 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 HOSPITAL COURSE: During the hospital stay the following issues addressed (1) Cellulitis of groin, left Markedly improved changed ab Iv to PO I talked to Dr Geronimo she gave rec about wound care CT negative for abscess Bacitracin locally (2) CVA, old, hemiparesis Aspiration precaution Follow-up with neurologist outpatient settings Continue aspirin and statin (3) Chronic atrial fibrillation Continue oral target anticoagulation Heart rate is under control (4) Hypertension Continue home cardioprotective medications Added lisinopril a.m. (5) Hyperlipidemia Continue statin (6) PVD (peripheral vascular disease) Follow-up with vascular surgeon (7) Diabetes mellitus Insulin sliding scale Diabetes diet Detemir twice a day DISCHARGE MEDICATIONS: Please see below. ALLERGIES: Please see below. PHYSICAL EXAMINATION ON DISCHARGE: VITAL SIGNS: Please see below. Objective: GENERAL APPEARANCE: NAD HEENT: no scleral icterus, no JVD, EOMI CARDIOVASCULAR: S1S2 LUNGS: CTA ABDOMEN: soft & not tender w palpitation MUSCULOSKELETAL: no cyanosis, no swelling, right below-knee amputation INTEGUMENT: mild erythema in the left groin area around surgical stitches NEUROLOGICAL: cranial nerve function from 2-12 intact intact, follows commands, speech not dysarthric LABORATORY DATA: Please see below. IMAGING: see above PROGNOSIS: guarded ACTIVITY: [As tolerated]. DIET: cardiac DISPOSITION: 01 Home, Self-Care. ITEMS TO FOLLOWUP ON ON OUTPATIENT: PCP, Dr Geronimo DISCHARGE CONDITION: [Stable]. TIME SPENT ON DISCHARGE: Greater than 40 minutes. Vital Signs/I&Os Vital Signs Date Time Temp Pulse Resp B/P (MAP) Pulse Ox O2 Delivery O2 Flow Rate FiO2 04/09/20 08:41 82 140/57 04/09/20 08:10 18 04/09/20 06:00 96.9 95 Room Air I&O- Last 24 Hours up to 6 AM 04/09/20 06:00 Intake Total 1270 ml Output Total 0 ml Balance 1270 ml Laboratory Data Labs 24H Laboratory Tests 2 04/08/20 20:10: Bedside Glucose (Misc Panel) 166H 04/09/20 07:09: Immature Granulocyte % (Auto) 0.9, Neutrophils (%) (Auto) 66.9H, Lymphocytes (%) (Auto) 21.9L, Monocytes (%) (Auto) 7.3H, Eosinophils (%) (Auto) 2.5, Basophils (%) (Auto) 0.5, Neutrophils # (Auto) 5.4, Lymphocytes # (Auto) 1.8, Monocytes # (Auto) 0.6, Eosinophils # (Auto) 0.2, Basophils # (Auto) 0.0, Nucleated Red Blood Cells % (auto) 0.0, Anion Gap 8, Glomerular Filtration Rate > 60.0, Calcium Level 8.5L, Magnesium Level 2.0 04/09/20 08:48: Coronavirus (COVID-19)(PCR) NEGATIVE CBC/BMP Laboratory Tests 04/09/20 07:09 FSBS Laboratory Tests Test 04/08/20 20:10 Range/Units Bedside Glucose (Misc Panel) 166 80-115 MG/DL Microbiology Microbiology 04/02/20 Urine Culture - Final, Complete 04/02/20 Blood Culture - Final, Complete NO GROWTH AFTER 5 DAYS 04/02/20 Blood Culture - Final, Complete NO GROWTH AFTER 5 DAYS Discharge Medications Scheduled Acetaminophen (Mapap) 500 Mg Tablet, 1,000 MG PO QHS, (Reported) Allopurinol (Allopurinol) 100 Mg Tablet, 100 MG PO DAILY, (Reported) Aspirin (Aspirin) 81 Mg Tab.chew, 81 MG PO DAILY, (Reported) Cholecalciferol (Vitamin D3) (Vitamin D3) 1,000 Unit Tablet, 1,000 UNITS PO DAILY, (Reported) Doxycycline Monohydrate (Doxycycline) 100 Mg Capsule, 1 CAP PO BID Ferrous Sulfate (Iron) 325 Mg Tablet, 325 MG PO DAILY, (Reported) Furosemide (Furosemide) 40 Mg Tab, 40 MG PO DAILY, (Reported) Icosapent Ethyl (Vascepa) 1 Gm Capsule, 2 GM PO BID, (Reported) Insulin Detemir (Levemir) 100 Unit/1 Ml Vial, 20 UNITS SC QAM, (Reported) Latanoprost (Xalatan) 0.005% 2.5ML Drops, 1 DROP OU QHS, (Reported) Metformin HCl (Metformin HCl) 500 Mg Tablet, 500 MG PO BID, (Reported) Metoprolol Tartrate (Metoprolol Tartrate) 50 Mg Tablet, 50 MG PO DAILY, (Reported) Miconazole Nitrate (Anti-Fungal Powder) 71 Gm Powder, 1 DOSE TOP BID, (Reported) APPLY TO ABDOMINAL FOLD Omeprazole (Omeprazole) 20 Mg Capsule.dr, 20 MG PO DAILY, (Reported) Rivaroxaban (Xarelto) 20 Mg Tablet, 20 MG PO DAILY, (Reported) Ropinirole HCl (Ropinirole HCl) 0.25 Mg Tab, 0.25 MG PO DAILY, (Reported) Rosuvastatin Calcium (Crestor) 20 Mg Tab, 20 MG PO QHS, (Reported) Senna (Senna Lax) 8.6 Mg Tablet, 17.2 MG PO QHS, (Reported) Sertraline HCl (Sertraline HCl) 50 Mg Tablet, 50 MG PO QHS, (Reported) Sitagliptin (Januvia) 50 Mg Tablet, 50 MG PO DAILY, (Reported) Scheduled PRN Acetaminophen (Acetaminophen) 325 Mg Tablet, 650 MG PO Q4H PRN for PAIN / FEVER, (Reported) Bisacodyl (Bisacodyl) 10 Mg Supp.rect, 10 MG [place] DAILY PRN for CONSTIPATION, (Reported) Magnesium Hydroxide (Milk of Magnesia) 400 Mg/5 Ml Oral.susp, 30 ML PO DAILY PRN for CONSTIPATION, (Reported) Oxycodone HCl/Acetaminophen (Percocet 5-325 mg Tablet) 1 Each Tablet, 1 TAB PO Q4H PRN for PAIN, (Reported) Sodium Phosphate,Webster-Dibasic (Enema) 133 Ml Enema, 1 OSMANY [place] DAILY PRN for CONSTIPATION, (Reported) glucagon HCL (glucagon HCL) 1 Mg/1 Ml Vial, 1 MG IM PRN PRN for LOW BLOOD SUGAR, (Reported) Allergies Coded Allergies: Penicillins (Verified Allergy, Intermediate, mouth swelling, 03/11/20) VINAY WHEELER DO Apr 09, 2020 19:56
== END 2020-04-09 12:04 | disposition home or self-care (01) | DRG 315 ==
LOC: M ED 10:06 → M ED INP 15:30 → M MSPAV 18:20
PROVIDERS: ADMIT Internal Medicine; ATTEND Internal Medicine
PROC: 02HV33Z Insertion of Infusion Device into Superior Vena Cava, Percutaneous Approach (ICD-10-PCS; principal; 2020-04-05 14:39)
DX: T82.7XXA Infection and inflammatory reaction due to other cardiac and vascular devices, implants and grafts, initial encounter (principal); L03.314 Cellulitis of groin; I48.20 Chronic atrial fibrillation, unspecified; I69.351 Hemiplegia and hemiparesis following cerebral infarction affecting right dominant side; I69.320 Aphasia following cerebral infarction; E78.5 Hyperlipidemia, unspecified; I10 Essential (primary) hypertension; E11.51 Type 2 diabetes mellitus with diabetic peripheral angiopathy without gangrene; Z89.611 Acquired absence of right leg above knee; Z79.82 Long term (current) use of aspirin; Z79.899 Other long term (current) drug therapy; Z88.0 Allergy status to penicillin; I25.10 Atherosclerotic heart disease of native coronary artery without angina pectoris; K21.9 Gastro-esophageal reflux disease without esophagitis; M10.9 Gout, unspecified; K57.30 Diverticulosis of large intestine without perforation or abscess without bleeding; G25.81 Restless legs syndrome; R91.1 Solitary pulmonary nodule; Z87.891 Personal history of nicotine dependence; Y83.2 Surgical operation with anastomosis, bypass or graft as the cause of abnormal reaction of the patient, or of later complication, without mention of misadventure at the time of the procedure

== ENCOUNTER → 2020-04-02 | Outpatient (REF) | payer MEDICARE, MEDICAID ==
[~2020-04-02] MED LIST changes: -DOXY-350 PO; -DOXY100T2 PO; -FLAG500T PO
--- NOTE | 2020-04-02 16:02 | HPEPDOC ---
General Date of Admission 04/02/20 Date of Service: Apr 02, 2020 Chief Complaint The patient is a 70-year-old female admitted with a reason for visit of . 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 The procedure was done on 03/25/20. Today, in the Dr Geronimo office patient was found to have erythema around surgical with small amount of pus in the left groin area. In ER patient was found to have no leukocytosis. CT scan was done and showed Edema/inflammation in the left inguinal region with overlying skin carolyn. There are also foci of air in the soft tissues with no drainable abscess or fluid collection. 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 Dr. Ivey was informed of these findings at the time of the exam. Home Medications Scheduled Acetaminophen (Mapap) 500 Mg Tablet, 1,000 MG PO QHS, (Reported) Allopurinol (Allopurinol) 100 Mg Tablet, 100 MG PO DAILY, (Reported) Aspirin (Aspirin) 81 Mg Tab.chew, 81 MG PO DAILY, (Reported) Cholecalciferol (Vitamin D3) (Vitamin D3) 1,000 Unit Tablet, 1,000 UNITS PO DAILY, (Reported) Ferrous Sulfate (Iron) 325 Mg Tablet, 325 MG PO DAILY, (Reported) Furosemide (Furosemide) 40 Mg Tab, 40 MG PO DAILY, (Reported) Icosapent Ethyl (Vascepa) 1 Gm Capsule, 2 GM PO BID, (Reported) Insulin Detemir (Levemir) 100 Unit/1 Ml Vial, 20 UNITS SC QAM, (Reported) Latanoprost (Xalatan) 0.005% 2.5ML Drops, 1 DROP OU QHS, (Reported) Metformin HCl (Metformin HCl) 500 Mg Tablet, 500 MG PO BID, (Reported) Metoprolol Tartrate (Metoprolol Tartrate) 50 Mg Tablet, 50 MG PO DAILY, (Reported) Miconazole Nitrate (Anti-Fungal Powder) 71 Gm Powder, 1 DOSE TOP BID, (Reported) APPLY TO ABDOMINAL FOLD Omeprazole (Omeprazole) 20 Mg Capsule.dr, 20 MG PO DAILY, (Reported) Rivaroxaban (Xarelto) 20 Mg Tablet, 20 MG PO DAILY, (Reported) Ropinirole HCl (Ropinirole HCl) 0.25 Mg Tab, 0.25 MG PO DAILY, (Reported) Rosuvastatin Calcium (Crestor) 20 Mg Tab, 20 MG PO QHS, (Reported) Senna (Senna Lax) 8.6 Mg Tablet, 17.2 MG PO QHS, (Reported) Sertraline HCl (Sertraline HCl) 50 Mg Tablet, 50 MG PO QHS, (Reported) Sitagliptin (Januvia) 50 Mg Tablet, 50 MG PO DAILY, (Reported) Scheduled PRN Acetaminophen (Acetaminophen) 325 Mg Tablet, 650 MG PO Q4H PRN for PAIN / FEVER, (Reported) Bisacodyl (Bisacodyl) 10 Mg Supp.rect, 10 MG DC DAILY PRN for CONSTIPATION, (Reported) Magnesium Hydroxide (Milk of Magnesia) 400 Mg/5 Ml Oral.susp, 30 ML PO DAILY PRN for CONSTIPATION, (Reported) Oxycodone HCl/Acetaminophen (Percocet 5-325 mg Tablet) 1 Each Tablet, 1 TAB PO Q4H PRN for PAIN, (Reported) Sodium Phosphate,[place]-Dibasic (Enema) 133 Ml Enema, 1 OSMANY DC DAILY PRN for CONSTIPATION, (Reported) glucagon HCL (glucagon HCL) 1 Mg/1 Ml Vial, 1 MG IM PRN PRN for LOW BLOOD SUGAR, (Reported) Allergies Coded Allergies: Penicillins (Verified Allergy, Intermediate, mouth swelling, 03/11/20) Past Medical History Medical History Non healing left urrutia medially due to venous stasis Morbid obesity Chronic atrial fibrillation PAD s/p right above knee amputation amputation after failed angioplasties and bypass. 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 S/p partial nephrectomy Lung nodule stable since 2012. Gout GERD depression Constipation Diverticulosis RLS Surgical History Surgical History Bilateral lower extremity angioplasties RIGHT FEMORAL TIBIAL ARTERY BYPASS 08/2016 Left CAROTID ENDARTERECTOMY Right varicose vein stripping. Right AKA Family History Significant Family History: Diabetes (sibling), Heart disease (father) Social History * Smoker: former Smoker Alcohol: Denies Drugs: denies A-FIB/CHADSVASC A-FIB History Current/History of A-Fib/PAF?: Yes Current PO Anticoag Therapy: Yes Review of Systems Constitutional: Denies: Chills, Fever Eyes: Denies: Pain, Vision change ENT: Denies: Head Aches Skin: Reports: Rash, Lesions Pulmonary: Denies: Dyspnea, Cough Cardiovascular: Denies: Chest Pain, Palpitations Gastrointestinal: Denies: Nausea, Vomiting Genitourinary: Denies: Dysuria, Frequency Hematologic: Denies: Bruising Endocrine: Denies: Polydipsia Musculoskeletal: Denies: Neck Pain, Back Pain Neurological: Denies: Weakness Psych: Reports: Mood Normal Physical Examination General Exam: Positive: Alert, Cooperative Eye Exam: Positive: PERRLA ENT Exam: Positive: Atraumatic Neck Exam: Positive: Supple; Negative: JVD Chest Exam: Positive: Clear to auscultation Heart Exam: Positive: Rate Normal Telemetry: Positive: No significant arrhythmia Abdomen Exam: Positive: Normal bowel sounds Extremity Exam: Positive: Tenderness Skin Exam: Positive: Rash, Lesion (left groin area erythema and above-knee popliteal artery bypass area mild erythematous ) Neuro Exam: Positive: Normal Speech, Normal Tone Psych Exam: Positive: Memory Intact, Oriented x 3 Vital Signs hr 82 Laboratory Data Microbiology Microbiology 04/02/20 Gram Stain, Received Pending 04/02/20 Wound Culture, Received Pending Assessment/Plan Patient is 70 year old female with PMH of Chronic Afib, PAD with right above knee amputation and left urrutia chronic non healing venous stasis ulcer, 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 The procedure was done on 03/25/20. Today, in the Dr Geronimo office patient was found to have erythema around surgical with small amount of pus in the left groin area. In ER patient was found to have no leukocytosis. CT scan was done and showed Edema/inflammation in the left inguinal region with overlying skin carolyn. There are also foci of air in the soft tissues with no drainable abscess or fluid collection. 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 Dr. Ivey was informed of these findings at the time of the exam. Problems (1) PAD (peripheral artery disease) (2) Cellulitis of groin, left Status: Acute (3) Chronic atrial fibrillation Status: Chronic (4) CVA, old, hemiparesis Status: Chronic (5) Hypertension Status: Chronic (6) Hyperlipidemia Status: Chronic Plan / VTE VTE Prophylaxis Ordered?: Yes VINAY WHEELER DO Apr 02, 2020 16:02
== END ==
LOC: M LAB REF 15:23
PROVIDERS: ATTEND Physician Assistant
DX: S31.604A Unspecified open wound of abdominal wall, left lower quadrant with penetration into peritoneal cavity, initial encounter (principal)

== ENCOUNTER → 2020-04-03 | Outpatient (REF) | payer MEDICAID, MEDICARE ==
[~2020-04-03] MED LIST changes: +ACET1TAB55 PO; +BISA10SU4 PR; +DOXY-350 PO; +DOXY100T2 PO; +ENEMENE PR; +FLAG500T PO; +GLUC1INJ11 IM; +METO50TA7 PO; +MOM30SS2 PO; +PERC5TAB12 PO; +SERT50TA29 PO
== END ==
PROVIDERS: ATTEND Internal Medicine
DX: Z20.822 Contact with and (suspected) exposure to COVID-19 (principal)

== ENCOUNTER 2020-04-11 15:27 | Inpatient (IN) | payer MEDICARE, MEDICAID ==
[~2020-04-11] VITALS: Ht 152.4 cm; Wt 96.0 kg
[~2020-04-11 15:27] MED LIST changes: -DOXY100T2 PO; -FLAG500T PO; +LISI-538; +LISI-538 PO; -LISI20TA33; -LISI20TA33 PO
[2020-04-11] MEDS ORDERED: D5W 1,000 ML IV SCH (15:31)
[2020-04-11] MEDS ORDERED: MAALOX 30 ML SUSP *UDC PO PRN (15:45)
[2020-04-11] MEDS ORDERED: MOM 30ML SUSPENSION UDC PO PRN (15:45)
--- OUTSIDE RECORDS SUMMARY | 2020-04-11 15:50 | CCD | Continuity of Care Document ---
Author Author Sallie BROWN PA Organization Unknown Address [address], [address] [place] [address] Phone [phone] Care Team Providers Care Wire Rigger Name Role Phone Aaron Kurtz AUTM Bill Love D.O. AUTM [phone] Bharti De Oliveira D.O. AUTM [phone] E Pre Op AUTM [phone] Problems Active Problems Provider Date Essential hypertension Raj Parks M.D. Onset: 017 Social History Type Date Description Comments Sex Unknown ETOH Use Denies alcohol use Recreational Drug Use Denies Drug Use Tobacco Use Start: Unknown End: Unknown Patient is a former smoker 1 PPD X40 YRS Tobacco Use Start: Unknown Quit 2005 Smoking Status Reviewed: 04/02/20 Quit 2006 Allergies, Adverse Reactions, Alerts Active Allergies Reaction Severity Comments Date Penicillin 08/10/2016 Cipro 12/06/2019 Cefazolin 12/06/2019 Amoxicillin 12/06/2019 Medications Active Medications SIG Qnty Indications Ordering Provide r Date Oxycodone-Acetaminophen 5-325mg Ta blets 1 tab by mouth every 4 hours as needed for pain U nknown Levemir 100Unit/ML Solution 20 units qd Unknown Miconazole Nitrate Powder bi d Unknown Januvia 50mg Tablets 1 qd Unknown Xalatan 0.005% Solution 1 gtt each eye qhs Unknown Vascepa 1gm Capsules 2 caps q d Unknown Allopurinol 100mg Tablets 1 q d Unknown Aspirin 81 Low Dose 81mg Chewtabs 1 by mouth every day Unknown Iron 325(65Fe) mg Tablets take 1 tablet by mouth daily. Unknown Milk Of Magnesia 400mg/5ML Suspens ion take 30ml by mouth daily prn Unknown [address] 1 by mouth every day Unknown Tylenol 325mg Capsules take 2 tab every 4 hours as needed for pain Unknown Bisacodyl 10mg Suppository insert into rectum as far as possible as needed Unknown Glucagon Emergency 1mg Kit prn use as directed Unknown Senna Laxative 8.6mg Tablets 2 tabs by mouth every day at bedtime Unknown Xarelto 20mg Tablets 1 by mouth once a day Unknown Acetaminophen Extra Strength 500mg Tablets 2 po at hs Unknown Requip 0.25mg Tablets 1 po qd Unknown Metformin HCL ER 500mg Tablets ER 24HR 1 by mouth twice a day Unknown Crestor 20mg Tablets [address] Unknown Vitamin D 1000Unit Tablets 1 by mouth every day Unknown Zoloft 50mg Tablets 1 by mouth every day Unknown Furosemide 40mg Tablets 1 by mouth every day Unknown Metoprolol Tartrate 50mg Tablets 1 po qd Unknown Immunizations Description No Information Available Vital Signs Date Vital Result Comment 04/02/2020 8:57am BP Systolic 174 mmHg BP Diastolic 82 mmHg Height 59 inches 4'11" Weight 218.50 lb BMI (Body Mass Index) 44.1 kg/m2 [place] Body Weight 100 lb Weight 99.112 kg BSA (Body Surface Area) 1.92 m2 01/16/2020 9:09am BP Systolic 167 mmHg BP Diastolic 92 mmHg Height 59 inches 4'11" Weight 217.00 lb Stated BMI (Body Mass Index) 43.8 kg/m2 [place] Body Weight 100 lb Weight 98.431 kg BSA (Body Surface Area) 1.91 m2 Results Test Acquired Date Facility Test Result H/L Range Note Laboratory test finding 04/02/2020 [facility] [place] [address] [phone] (SEE NOTE) Normal 1 Laboratory test finding 01/09/2020 [facility] [address] [place] [address] [phone] Bedside Glucose 241 mg/dL High 80-115 1 FEW EPITHELIAL CELLS MANY GRAM NEGATIVE RODS Procedures Date Code Description Status 03/25/2020 78909 Bypass Graft W/ Goretex Fem, Pop liteal Completed 03/25/2020 48460 Thromboendarterectomy Common Fem oral Completed 01/09/2020 08404 Moderate Sedation Se rvices; Same Phys Intl 15 Mins; PT >= 5 Years Completed 01/09/2020 01851 Catheter Introduction Aorta Comp leted Medical Devices Description No Information Available Encounters Type Date Location Provider Dx Diagnosis Office Visit 01/16/2020 9:15a [facility] NICHOLE Brownlee I70.249 [facility] [place] of left leg w [facility] eration of [facility] site I87.2 Venous insufficiency (chroni c) (peripheral) 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 Office Visit 12/11/2019 1:15p [facility] NICHOLE Brownlee I70.249 [facility] [place] arteries of left leg w [facility] eration of unsp site I87.2 Venous insufficiency (chroni c) (peripheral) Office Visit 12/06/2019 11:00a [facility] NICHOLE Brownlee I70.249 [facility] [place] of left leg w [facility] eration of unsp site I87.2 Venous insufficiency (chroni c) (peripheral) Assessments Date Code Description Provider 04/02/2020 I70.248 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 with ulceration of other part of lower leg NICHOLE Greenberg 04/02/2020 Z95.828 Presence of other vascular impla nts and grafts NICHOLE Greenberg 04/02/2020 I87.2 Venous insufficiency (chronic) ( peripheral) NICHOLE Greenberg 04/02/2020 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 NICHOLE Greenberg 04/02/2020 Z68.41 Body mass index [BMI]40.0-44.9, adult NICHOLE Greenberg 03/25/2020 I70.248 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 with ulceration of other part of lower leg Deedee Bernardo MD 01/16/2020 I70.249 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 with ulceration of unspecified site NICHOLE Greenberg 01/16/2020 I87.2 Venous insufficiency (chronic) ( peripheral) NICHOLE Greenberg 01/16/2020 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 NICHOLE Greenberg 01/09/2020 I70.222 Atherosclerosis of n ative arteries of extremities with rest pain, left leg Deedee Bernardo MD 01/09/2020 I70.242 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
--- OUTSIDE RECORDS SUMMARY | 2020-04-11 15:50 | CCD | Continuity of Care Document ---
Author Author Sallie MELISSA Organization Unknown Address [address] [address] Phone [phone] Care Team Providers Care Methods And Procedures Analyst Name Role Phone Bharti Melissa DO AUTM Unavailable Problems Description No Information Available Social History Type Date Description Comments Sex Unknown Allergies, Adverse Reactions, Alerts Description No Information Available Medications Active Medications SIG Qnty Indications Ordering Provide r Date Ropinirole HCL 0.25mg Tablets 1 tab po bid 30tabs Bharti Melissa,DO 03/29/2020 Rosuvastatin Calcium 20mg Tablets 1 by mouth at hs 30tabs Bharti Melissa,DO 03/29/2020 Senna 8.6mg Capsules 2 by mouth every night at bedtime 60caps Bharti Melissa,DO 03/29/2020 Sertraline HCL 50mg Tablets 1 by mouth every day 30tabs Bharti Melissa,DO 03/29/2020 Januvia 50mg Tablets 1 by mouth every day 30tabs Bharti Melissa,DO 03/29/2020 Mapap 500mg Tablets 2 tabs po at hs 60tabs Bharti Melissa,DO 03/29/2020 Xarelto 20mg Tablets take one tablet by mouth every day with food 30tabs Bharti Melissa,DO [address] 1 by mouth every day 30tabs Bharti Melissa,DO 03/28/2020 Metformin HCL 500mg Tablets take one tablet by mouth twice a day 60tabs Bharti Melissa,DO 09/2020 Xalatan 0.005% Solution 1 drop in both eyes 1 time per day 2.500ml Bharti Melissa,DO 03/28/2020 Vascepa 1gm Capsules take two capsules by mouth with breakfast and dinner (4 total daily) 120caps Bharti Melissa,DO 03/28/2020 Furosemide 40mg Tablets 1 by mouth every day 30bs Bharti Quinonesgs,DO 03/28/2020 Ferrous Sulfate 325(65Fe) mg Table ts 1 by mouth every day Bharti Melissa,DO 03/28/2020 Vitamin D3 Complete Tablets 1 po daily 30 Bharti Melissa,DO 03/28/2020 Aspirin Adult Low Dose 81mg Tablet s DR 1 by mouth every day 30 Bharti Melissa,DO 03/28/2020 Allopurinol 100mg Tablets 1 by mouth every day 30 Bharti Quinonesgs,DO 03/28/2020 Metoprolol Tartrate 50mg Tablets take one tablet by mouth daily for 30 days Bharti Melissa,DO 03/28/2020 Levemir 100Unit/ML Solution inject 20 units subcutaneously daiy for 30 days 40ml Bharti Pate s,DO 03/28/2020 Oxycodone-Acetaminophen 5-325mg Ta blets 1 tab every 4 hours as needed for moderate pain 5-7. not to exceed 5 per day for 5 days Bharti Melissa,DO 03/28/2020 Immunizations Description No Information Available Vital Signs Description No Information Available Results Test Acquired Date Facility Test Result H/L Range Note PT & Aptt 04/02/2020 [facility] nter [address] [place], [place] [id number] [phone] Prothrombin Time 20.7 seconds High 12.5-14.3 Inr 1.74 Normal 1 Partial Thromboplastin Time 54.7 seconds High 24.2-38.5 CBC With Differential 04/02/2020 [facility] [address] [place], [place] [id number] [phone] White Blood Count 9.6 10 Normal 4.0-10.0 Red Blood Count 3.84 10 Low 4.00-5.40 Hemoglobin 10.1 g/dL Low 12.0-15.5 Hematocrit 34.4 % Low 36.0-47.0 Mean Corpuscular Volume 89.6 fl Normal 80.0-96.0 Mean Corpuscular Hemoglobin 26.3 pg Low 27.0-33.0 Mean Corpuscular HGB Conc 29.4 g/dL Low 32.0-36.5 Red Cell Distribution Width 15.4 % High 11.5-14.5 Platelet Count, Automated 352 10 Normal 150-450 Neutrophils % 75.7 % High 36.0-66.0 Lymph % 13.5 % Low 24.0-44.0 [place] % 7.0 % High 0.0-5.0 Eos % 1.6 % Normal 0.0-3.0 Baso % 0.6 % Normal 0.0-1.0 Immature Granulocyte % 1.6 % Normal 0-3.0 Nucleated Red Blood Cell % 0.0 % Normal 0-0 Neutrophils # 7.3 10 Normal 1.5-8.5 Lymph # 1.3 10 Low 1.5-5.0 [place] # 0.7 10 Normal 0.0-0.8 Eos # 0.2 10 Normal 0.0-0.5 Baso # 0.1 10 Normal 0.0-0.2 Laboratory test finding 04/02/2020 [place] [id number] [phone] Erythrocyte Sedimentation Rate 93 mm/hr High 0 -30 Influenza A/B RSV Covid Amp 04/02/2020 [facility] [address] [place] [address] [phone] Influenza A Amplification NEGATIVE Normal Negati ve 2 Influenza B Amplification NEGATIVE Normal Negative 3 RSV Amplification NEGATIVE Normal Negative 4 Sars Covid-19 Amplification NEGATIVE Normal Negative 5 Laboratory test finding 01/09/2020 [place] [address] [place] [id number] [phone] Bedside Glucose 241 mg/dL High 80-115 1 THERAPUTIC HUMAN INR VALUES INDICATIONS NORMAL RANGES PROPHYLAXIS/TREATMENT OF: VENOUS THROMBOSIS 2.0-3.0 PULMONARY EMBOLISM 2.0-3.0 PREVENTION OF SYSTEMIC EMBOLISM FROM: TISSUE HEART VALVES 2.0-3.0 ACUTE MYOCARDIAL INFARCTION 2.0-3.0 VALVULAR HEART DISEASE 2.0-3.0 ATRIAL FIBRILLATION 2.0-3.0 MECHANICAL VALVES(HIGH RISK) 2.5-3.5 RECURRENT MYOCARDIAL INFARCTION 2.5-3.5 2 Negative results do not prec lude influenza or RSV virus infection and should not be used as the sole basis for treatment or other patient management decisions. 3 Negative results do not prec lude influenza or RSV virus infection and should not be used as the sole basis for treatment or other patient management decisions. 4 Negative results do not prec lude influenza or RSV virus infection and should not be used as the sole basis for treatment or other patient management decisions. 5 A false negative result may occur if a specimen is improperly collected, transported or handled. False [...] pathogens. DISCLAIMER: Testing was performed using the [employer] SARS-CoV-2 test. This test was developed and its performance characteristics determined by [employer]. This test has not been FDA cleared [...] the authorization is terminated or revoked sooner. 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 Bharti Melissa,DO 03/28/2020 Z95.820 Peripheral vascular angioplasty status with implants and grafts Bharti Melissa,DO 03/28/2020 I73.9 Peripheral vascular disease, uns pecified Bharti Melissa,DO 03/28/2020 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 Bharti Melissa,DO 03/28/2020 E11.40 Type 2 diabetes mary itus with diabetic neuropathy, unspecified Bharti Melissa,DO 03/28/2020 D50.9 Iron deficiency anemia, unspecif ied Bharti Melissa,DO 03/28/2020 I48.20 Chronic atrial fibrillation, uns pecified Bharti Melissa,DO 03/28/2020 Z79.01 longterm (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 Bharti Melissa,DO 03/28/2020 G25.81 Restless legs syndrome Bharti yancey,DO 03/28/2020 I69.320 Aphasia following cerebral infar ction Bharti Melissa,DO 03/28/2020 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 Bharti Melissa,DO 02/21/2020 I73.9 Peripheral vascular disease, uns pecified Bharti Melissa,DO 02/21/2020 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 Bharti Melissa,DO 02/21/2020 E11.65 Type 2 diabetes mellitus with hy perglycemia Bharti Melissa,DO 02/21/2020 I48.91 Unspecified atrial fibrillation Bharti Melissa,DO 02/21/2020 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 superintendent terminal (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 Bharti Melissa,DO 11/29/2019 R60.0 Localized edema Bharti Melissa,DO 11/29/2019 I73.9 Peripheral vascular disease, uns pecified Bharti Melissa,DO 11/29/2019 E11.9 Type 2 diabetes mellitus without complications Bharti Melissa,DO 11/29/2019 D50.9 Iron deficiency anemia, unspecif ied Bharti Melissa,DO 11/29/2019 I13.0 Hypertensive heart a nd chronic kidney disease with heart failure and stage 1 through stage 4 chronic kidney disease, or unspecified chronic kidney disease Bharti Melissa,DO 11/29/2019 I50.32 Chronic diastolic (congestive) h eart failure Bharti Melissa,DO 11/29/2019 N18.3 Chronic kidney disease, stage 3 (moderate) Bharti Melissa,DO 10/24/2019 L30.9 Dermatitis, unspecified Fatimah Brandt, [facility] 10/24/2019 E11.65 Type 2 diabetes mellitus with hy perglycemia Fatimah Brandt, [facility] 10/24/2019 I50.32 Chronic diastolic (congestive) h eart failure Fatimah Brandt, [facility] 10/24/2019 N18.3 Chronic kidney disease, stage 3 (moderate) LUIS A Reyes 10/24/2019 I48.91 Unspecified atrial fibrillation LUIS A Reyes 10/24/2019 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
--- OUTSIDE RECORDS SUMMARY | 2020-04-11 15:50 | CCD | Continuity of Care Document ---
Author Author Sallie MELISSA Organization Unknown Address [address] [address] Phone [phone] Care Team Providers Care Dredge Hand Name Role Phone Bharti Melissa DO AUTM [...] H/L Range Note PT & Aptt 04/02/2020 [facility] nter [address] [place], [place] [id number] [phone] Prothrombin Time 20.7 seconds High 12.5-14.3 Inr 1.74 Normal 1 Partial Thromboplastin Time 54.7 seconds High 24.2-38.5 CBC With Differential 04/02/2020 [facility] [address] [place], [place] [id number] [phone] White Blood Count 9.6 10 Normal 4.0-10.0 [...] 36.0-66.0 Lymph % 13.5 % Low 24.0-44.0 [place] % 7.0 % High 0.0-5.0 Eos % 1.6 % Normal 0.0-3.0 Baso % 0.6 % Normal 0.0-1.0 Immature Granulocyte % 1.6 % Normal 0-3.0 Nucleated Red Blood Cell % 0.0 % Normal 0-0 Neutrophils # 7.3 10 Normal 1.5-8.5 Lymph # 1.3 10 Low 1.5-5.0 [place] # 0.7 10 Normal 0.0-0.8 Eos # 0.2 10 Normal 0.0-0.5 Baso # 0.1 10 Normal 0.0-0.2 Laboratory test finding 04/02/2020 [place] [id number] [phone] Erythrocyte Sedimentation Rate 93 mm/hr High 0 -30 Influenza A/B RSV Covid Amp 04/02/2020 [facility] [address] [place] [address] [phone] Influenza A Amplification NEGATIVE Normal Negati ve 2 Influenza B Amplification NEGATIVE Normal Negative 3 RSV Amplification NEGATIVE Normal Negative 4 Sars Covid-19 Amplification NEGATIVE Normal Negative 5 Laboratory test finding 01/09/2020 [place] [address]0590 [place] 6559334 [phone] Bedside Glucose 241 mg/dL High 80-115 1 [...] pathogens. DISCLAIMER: Testing was performed using the [employer] SARS-CoV-2 test. This test was developed and its performance characteristics determined by [employer]. 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 10/24/2019 E11.65 Type 2 diabetes mellitus with hy perglycemia Fatimah Brandt, [facility] 10/24/2019 I50.32 Chronic diastolic (congestive) h eart failure Fatimah Brandt, 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
--- OUTSIDE RECORDS SUMMARY | 2020-04-11 15:50 | CCD | Continuity of Care Document ---
Author Author Sallie BROWN PA Organization Unknown Address [address] [facility], [address] [place] [address] Phone [phone] Care Team Providers Care Narrow Fabric Calenderer Name Role Phone Aaron Kurtz AUTM Bill Love D.O. AUTM [phone] Bharti De Oliveira D.O. AUTM [phone] E Pre Op AUTM [phone] Problems Active Problems Provider Date Essential hypertension [...] lb BMI (Body Mass Index) 44.1 kg/m2 [place] Body Weight 100 lb Weight 99.112 kg BSA (Body Surface Area) 1.92 m2 01/16/2020 9:09am BP Systolic 167 mmHg BP Diastolic 92 mmHg Height 59 inches 4'11" Weight 217.00 lb Stated BMI (Body Mass Index) 43.8 kg/m2 [place] Body Weight 100 lb Weight 98.431 kg BSA (Body Surface Area) 1.91 m2 Results Test Acquired Date Facility Test Result H/L Range Note Laboratory test finding 01/09/2020 [facility] [address] [place] [address] [phone] Bedside Glucose 241 mg/dL High 80-115 Procedures Date Code Description Status 03/25/2020 97217 Bypass Graft W/ Goretex Fem, Pop liteal Completed 03/25/2020 15250 Thromboendarterectomy Common Fem oral Completed 01/09/2020 42868 Moderate Sedation Se rvices; Same Phys Intl 15 Mins; PT >= 5 Years Completed 01/09/2020 32760 Catheter Introduction Aorta Comp leted Medical Devices Description No Information Available Encounters Type Date Location Provider Dx Diagnosis Office Visit 01/16/2020 9:15a [facility] NICHOLE Brownlee I70.249 [place] arteries of left leg w ulc eration of unsp site I87.2 Venous insufficiency (chroni c) (peripheral) 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 Office Visit 12/11/2019 1:15p [facility] NICHOLE Brownlee I70.249 [place] arteries of left leg w ulc eration of unsp site I87.2 Venous insufficiency (chroni c) (peripheral) Office Visit 12/06/2019 11:00a [facility] NICHOLE Brownlee I70.249 [place] arteries of left leg w ulc eration of unsp site I87.2 Venous insufficiency (chroni c) (peripheral) Assessments Date Code Description Provider 03/25/2020 I70.248 Atherosclerosis of n ative arteries [...] MD CHRONIC [facility]OUN[facility] [address] [facility] [address] [phone] Deedee Bernardo MD [facility] Closed 020 [address] [facility] [address] [place] [address] [phone]
--- OUTSIDE RECORDS SUMMARY | 2020-04-11 15:50 | CCD | Continuity of Care Document ---
Author Author Sallie MELISSA Organization Unknown Address [address] [address] Phone [phone] Care Team Providers Care Content Creation Manager Name Role Phone Bharti Melissa DO AUTM [...] breakfast and dinner (4 total daily) 120caps Bhartilara Melissa,DO 03/28/2020 Furosemide 40mg Tablets 1 by mouth every day 30 Bharti Melissa, 03/28/2020 Ferrous Sulfate 325(65Fe) mg Table ts 1 by mouth every day Bharti Melissa,DO 03/28/2020 Vitamin D3 Complete Tablets 1 po daily 30 Bharti Melissa,DO 03/28/2020 Aspirin Adult Low Dose 81mg Tablet s DR 1 by mouth every day Bharti Melissa,DO 03/28/2020 Allopurinol 100mg Tablets 1 by mouth every day Bharti Melissa,DO 03/28/2020 Metoprolol Tartrate 50mg Tablets take one tablet by mouth daily for 30 days Bhartilara Melissa, 03/28/2020 Levemir 100Unit/ML Solution inject 20 units subcutaneously daiy for 30 days 40ml Bharti Pate s,DO 03/28/2020 Oxycodone-Acetaminophen 5-325mg Ta blets 1 tab every 4 hours as needed for moderate pain 5-7. not to exceed 5 per day for 5 days [facility] Immunizations Description No Information Available Vital Signs Description No Information Available Results Test Acquired Date Facility Test Result H/L Range Note Ua W/ Reflex To Culture 04/02/[address] [address] [phone] Appearance, Urine RFX CLOUDY High Clear Color, Urine RFX YELLOW Normal Yellow PH,Urine RFX 5.0 units Normal 5.0-9.0 Specific [place] Ur Auto RFX 1.008 Normal 1.002-1.035 Protein, Urine Auto RFX NEGATIVE mg/dL Normal Negative Glucose, Urine (Ua) Auto RFX NEGATIVE mg/dL Normal Negative Ketone, Urine Auto RFX NEGATIVE mg/dL Normal Negative Urobilinogen, Urine Auto RFX 0.2 mg/dL Normal 0.0-2.0 Bilirubin, Urine Auto RFX NEGATIVE Normal Negative Nitrite, Urine Auto RFX POSITIVE High Negative Leukocyte Esterase Ur Auto RFX 3+ High Negative Blood, Urine Blood RFX 2+ High Negative WBC, Urine Auto RFX 60 /HPF High 0-3 RBC, Urine Auto RFX 12 /HPF High 0-3 Bacteria, Urine Auto RFX 2+ High Negative Squam Epithelial Cell Ur Aurfx 3 /HPF Normal 0-6 Mucus, Urine RFX SMALL Normal Negative Hyaline Cast, Urine Auto RFX 0 /LPF Normal 0-1 PT & Aptt 04/02/2020 [facility] nter [address] [place] [address] [phone] Prothrombin Time 20.7 seconds High 12.5-14.3 Inr 1.74 Normal 1 Partial Thromboplastin Time 54.7 seconds High 24.2-38.5 CBC With Differential 04/02/2020 [place] [address] [place] [address] [phone] White Blood Count 9.6 10 Normal 4.0-10.0 [...] 36.0-66.0 Lymph % 13.5 % Low 24.0-44.0 [place] % 7.0 % High 0.0-5.0 Eos % 1.6 % Normal 0.0-3.0 Baso % 0.6 % Normal 0.0-1.0 Immature Granulocyte % 1.6 % Normal 0-3.0 Nucleated Red Blood Cell % 0.0 % Normal 0-0 Neutrophils # 7.3 10 Normal 1.5-8.5 Lymph # 1.3 10 Low 1.5-5.0 [place] # 0.7 10 Normal 0.0-0.8 Eos # 0.2 10 Normal 0.0-0.5 Baso # 0.1 10 Normal 0.0-0.2 Laboratory test finding 04/02/2020 [facility] [address] [place] [address] [phone] Erythrocyte Sedimentation Rate 93 mm/hr High 0 -30 Cardiac Marker Panel 04/02/2020 [facility] [address] [place] [address] [phone] CPK Creatine Phosphokinase 90 U/L Normal 26-19 2 CK-MB Value Mass 1.5 NG/ML Normal <3.6 MB/CK Relative Index 1.66 Normal < Or =4 2 Troponin I < 0.02 NG/ML Normal < 0.10 3 Liver Profile 04/02/2020 [facility] nter [address] [place] [address] [phone] Ast/Sgot 24 IU/L Normal Alt/SGPT 23 IU/L Normal 0-32 Alkaline Phosphatase 105 U/L Normal 45-117 Bilirubin,Total 0.3 mg/dL Normal 0.2-1.0 Bilirubin,Direct 0.0 mg/dL Normal 0.0-0.2 Total Protein 6.5 GM/DL Normal 6.4-8.2 Albumin 2.7 GM/DL Low 3.2-5.2 Albumin/Globulin Ratio 0.7 Low 1.2-2.2 Basic Metabolic Profile 04/02/[address] [address] [phone] Glucose, Fasting 150 mg/dL High 70-100 Blood Urea Nitrogen 15 mg/dL Normal 7-18 Creatinine For GFR 0.96 mg/dL Normal 0.55-1.30 Glomerular Filtration Rate > 60.0 Normal >45 4 Sodium Level 141 mEq/L Normal 136-145 Potassium Serum 3.7 mEq/L Normal 3.5-5.1 Chloride Level 105 mEq/L Normal 98-107 Carbon Dioxide Level 28 mmol/L Normal 20-29 Anion Gap 8 mEq/L Normal 8-16 Calcium Level 8.6 mg/dL Low 8.8-10.2 Laboratory test finding 04/02/[address] [facility] [address] [place] [address] [phone] C Reactive Protein Quantitativ 8.74 mg/dL High 0 .00-0.30 5 Lactic Acid Sepsis Protocol 2.0 mmol/L Normal 0.4-2.0 6 Influenza A/B RSV Covid Amp 04/02/2020 [facility] [address] [place], [place] [address] [phone] Influenza A Amplification NEGATIVE Normal Negati ve 7 Influenza B Amplification NEGATIVE Normal Negative 8 RSV Amplification NEGATIVE Normal Negative 9 Sars Covid-19 Amplification NEGATIVE Normal Negative 10 Laboratory test finding 01/09/2020 [facility] [address] [place] [address] [phone] Bedside Glucose 241 mg/dL High 80-115 1 THERAPUTIC HUMAN INR VALUES INDICATIONS NORMAL RANGES PROPHYLAXIS/TREATMENT OF: VENOUS THROMBOSIS 2.0-3.0 PULMONARY EMBOLISM 2.0-3.0 PREVENTION OF SYSTEMIC EMBOLISM FROM: TISSUE HEART VALVES 2.0-3.0 ACUTE MYOCARDIAL INFARCTION 2.0-3.0 VALVULAR HEART DISEASE 2.0-3.0 ATRIAL FIBRILLATION 2.0-3.0 MECHANICAL VALVES(HIGH RISK) 2.5-3.5 RECURRENT MYOCARDIAL INFARCTION 2.5-3.5 2 DIAGNOSIS CRITERIA MMB ng/ml Relative Index (RI) NON-AMI < or = 5 N/A CORTES ZONE > 5 < or = 4 AMI > 5 > 4 3 Troponin I Reference Interva l for Linkfluence LOCI: 99th Percentile= 0.00-0.045 ng/ml Risk Stratification: <= 0.10 ng/ml Decreased Risk for Adverse Clinical Events. 0.10-1.50 ng/ml Increased Risk for Adv erse Clinical Events. Evaluation of additional criterion and/or repeat testing in 2-6 hours is suggested to rule out myocardial damage. >= 1.50 ng/ml Indicative of Myocardial Injury. 4 Units are mL/min/1.73 m2 Chronic Kidney Disease Staging per NKF: Stage I & II GFR >=60 Normal to Mildly Decreased Stage III GFR 30-59 Moderately Decreased Stage IV GFR 15-29 Severely Decreased Stage V GFR <15 Very Little GFR Left ESRD GFR <15 on HOSPITAL UNIT CLERK 5 --- 04/02/20 1259 --- C-REACT PROT QT previously reported as: 8.74 H MG/DL --- 04/02/20 1300 --- C-REACT PROT QT previously reported as: < 0.30 MG/DL --- 04/02/20 1259 --- C-REACT PROT QT previously reported as: 8.74 H MG/DL 6 Y/N query for Sepsis Lactate Rule: Y 7 Negative results do not prec lude influenza or RSV virus infection and should not be used as the sole basis for treatment or other patient management decisions. 8 Negative results do not prec lude influenza or RSV virus infection and should not be used as the sole basis for treatment or other patient management decisions. 9 Negative results do not prec lude influenza or RSV virus infection and should not be used as the sole basis for treatment or other patient management decisions. 10 A false negative result may occur if [...] pathogens. DISCLAIMER: Testing was performed using the [employer] SARS-CoV-2 test. This test was developed and its performance characteristics determined by [employer]. 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 Bharti Melissa,DO [...] Unspecified atrial fibrillation Bharti Melissa,DO 02/21/2020 Z79.01 assisted (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 Bharti Melissa,DO [...] Chronic diastolic (congestive) h eart failure Bharti Yennifer,DO 11/29/2019 N18.3 Chronic kidney disease, stage 3 (moderate) Bharti Yennifer,DO 10/24/2019 L30.9 Dermatitis, unspecified Fatimah Brandt, [employer] 10/24/2019 E11.65 Type 2 diabetes mellitus with hy perglycemia Fatimah Brandt, [facility] 10/24/2019 I50.32 Chronic diastolic (congestive) h eart failure Fatimah Brandt [facility] 10/24/2019 N18.3 Chronic kidney disease, stage 3 (moderate) Fatimah Brandt [facility] 10/24/2019 I48.91 Unspecified atrial fibrillation Fatimah Brandt [facility] 10/24/2019 Z79.01 assisted (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 Fatimah Brandt [facility] 10/24/2019 E78.5 Hyperlipidemia, unspecified Sonia Brandt [facility] 10/24/2019 D50.9 Iron deficiency anemia, unspecif ied Fatimah Brandt [employer] Plan of Treatment No Information Available Functional Status Description No Information Available Mental Status Description No Information Available Referrals Description No Information Available
--- OUTSIDE RECORDS SUMMARY | 2020-04-11 15:50 | CCD | Continuity of Care Document ---
Author Author Sallie MELISSA Organization Unknown Address [address] [address] Phone [phone] Care Team Providers Care Manager General Name Role Phone Bharti Melissa DO AUTM [...] Note Ua W/ Reflex To Culture 04/02/[address] [address] [phone] Appearance, Urine RFX CLOUDY High Clear Color, Urine RFX YELLOW Normal Yellow PH,Urine RFX 5.0 units Normal 5.0-9.0 Specific [place] Ur Auto RFX 1.008 Normal 1.002-1.035 Protein, [...] /LPF Normal 0-1 PT & Aptt 04/02/2020 [facility] nter [address] [place] [address] [phone] Prothrombin Time 20.7 seconds High 12.5-14.3 Inr 1.74 Normal 1 Partial Thromboplastin Time 54.7 seconds High 24.2-38.5 CBC With Differential 04/02/2020 [address] [place] [address] [phone] White Blood Count 9.6 10 Normal 4.0-10.0 [...] 36.0-66.0 Lymph % 13.5 % Low 24.0-44.0 Meade % 7.0 % High 0.0-5.0 Eos % 1.6 % Normal 0.0-3.0 Baso % 0.6 % Normal 0.0-1.0 Immature Granulocyte % 1.6 % Normal 0-3.0 Nucleated Red Blood Cell % 0.0 % Normal 0-0 Neutrophils # 7.3 10 Normal 1.5-8.5 Lymph # 1.3 10 Low 1.5-5.0 Meade # 0.7 10 Normal 0.0-0.8 Eos # 0.2 10 Normal 0.0-0.5 Baso # 0.1 10 Normal 0.0-0.2 Laboratory test finding 04/02/2020 [facility] [address] [place] [address] [phone] Erythrocyte Sedimentation Rate 93 mm/hr High 0 -30 Cardiac Marker Panel 04/02/2020 [facility] C enter [address] [place] [address] [phone] CPK Creatine Phosphokinase 90 U/L Normal 26-19 2 CK-MB Value Mass 1.5 NG/ML Normal <3.6 MB/CK Relative Index 1.66 Normal < Or =4 2 Troponin I < 0.02 NG/ML Normal < 0.10 3 Liver Profile 04/02/2020 [facility] nter [address] [place] [address] [phone] Ast/Sgot 24 IU/L Normal Alt/SGPT 23 IU/L Normal 0-32 Alkaline Phosphatase 105 U/L Normal 45-117 Bilirubin,Total 0.3 mg/dL Normal 0.2-1.0 Bilirubin,Direct 0.0 mg/dL Normal 0.0-0.2 Total Protein 6.5 GM/DL Normal 6.4-8.2 Albumin 2.7 GM/DL Low 3.2-5.2 Albumin/Globulin Ratio 0.7 Low 1.2-2.2 Basic Metabolic Profile 04/02/[address] [address] [phone] Glucose, Fasting 150 mg/dL High 70-100 Blood [...] mg/dL Low 8.8-10.2 Laboratory test finding 04/02/[address] [address] [phone] C Reactive Protein Quantitativ 8.74 mg/dL High 0 .00-0.30 5 Influenza A/B RSV Covid Amp 04/02/[address] [address] [phone] Influenza A Amplification NEGATIVE Normal Negati ve 6 Influenza B Amplification NEGATIVE Normal Negative 7 RSV Amplification NEGATIVE Normal Negative 8 Sars Covid-19 Amplification NEGATIVE Normal Negative 9 Laboratory test finding 01/09/2020 [facility] [address] [place], [place] [address] [phone] Bedside Glucose 241 mg/dL High 80-115 1 [...] 3 Troponin I Reference Interva l for Disconnect LOCI: 99th Percentile= 0.00-0.045 ng/ml Risk Stratification: [...] Little GFR Left ESRD GFR <15 on MILK PASTEURIZER 5 --- 04/02/20 1259 --- C-REACT PROT QT previously reported as: 8.74 H MG/DL --- 04/02/20 1300 --- C-REACT PROT QT previously reported as: < 0.30 MG/DL --- 04/02/20 1259 --- C-REACT PROT QT previously reported as: 8.74 H MG/DL 6 Negative results do not prec lude influenza or RSV virus infection and should not be used as the sole basis for treatment or other patient management decisions. 7 Negative results do not prec lude influenza or RSV virus infection and should not be used as the sole basis for treatment or other patient management decisions. 8 Negative results do not prec lude influenza or RSV virus infection and should not be used as the sole basis for treatment or other patient management decisions. 9 A false negative result may occur if [...] pathogens. DISCLAIMER: Testing was performed using the [employer] SARS-CoV-2 test. This test was developed and its performance characteristics determined by [employer]. 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 Bharti Melissa,DO [...] Unspecified atrial fibrillation Bharti Melissa,DO 02/21/2020 Z79.01 longterm (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 [...] Melissa,DO 10/24/2019 L30.9 Dermatitis, unspecified Fatimah Brandt, [facility] 10/24/2019 E11.65 Type 2 diabetes mellitus with hy perglycemia Fatimah Brandt, [facility] 10/24/2019 I50.32 Chronic diastolic (congestive) h eart failure Fatimah Brandt, [facility] 10/24/2019 N18.3 Chronic kidney disease, stage 3 (moderate) LUIS A Reyes 10/24/2019 I48.91 Unspecified atrial fibrillation LUIS A Reyes 10/24/2019 Z79.01 longterm (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
--- OUTSIDE RECORDS SUMMARY | 2020-04-11 15:50 | CCD | Continuity of Care Document ---
Author Author Sallie MELISSA Organization Unknown Address [address] [address] Phone [phone] Care Team Providers Care Paver Installer Name Role Phone Bharti Melissa DO AUTM [...] H/L Range Note PT & Aptt 04/02/2020 [facility] nter [address] [place], [place] [address] [phone] Prothrombin Time 20.7 seconds High 12.5-14.3 Inr 1.74 Normal 1 Partial Thromboplastin Time 54.7 seconds High 24.2-38.5 CBC With Differential 04/02/2020 [facility] [address] [place], [place] [address] [phone] White Blood Count 9.6 10 Normal 4.0-10.0 [...] 36.0-66.0 Lymph % 13.5 % Low 24.0-44.0 Grady % 7.0 % High 0.0-5.0 Eos % 1.6 % Normal 0.0-3.0 Baso % 0.6 % Normal 0.0-1.0 Immature Granulocyte % 1.6 % Normal 0-3.0 Nucleated Red Blood Cell % 0.0 % Normal 0-0 Neutrophils # 7.3 10 Normal 1.5-8.5 Lymph # 1.3 10 Low 1.5-5.0 Grady # 0.7 10 Normal 0.0-0.8 Eos # 0.2 10 Normal 0.0-0.5 Baso # 0.1 10 Normal 0.0-0.2 Laboratory test finding 04/02/2020 [facility] [address] [place] [address] [phone] Erythrocyte Sedimentation Rate 93 mm/hr High 0 -30 Cardiac Marker Panel 04/02/2020 [facility] enter [address] [place] [address] [phone] CPK Creatine Phosphokinase 90 U/L Normal 26-19 2 CK-MB Value Mass 1.5 NG/ML Normal <3.6 MB/CK Relative Index 1.66 Normal < Or =4 2 Troponin I < 0.02 NG/ML Normal < 0.10 3 Liver Profile 04/02/2020 [facility] nter [address] [place] [address] [phone] Ast/Sgot 24 IU/L Normal Alt/SGPT 23 IU/L Normal 0-32 Alkaline Phosphatase 105 U/L Normal 45-117 Bilirubin,Total 0.3 mg/dL Normal 0.2-1.0 Bilirubin,Direct 0.0 mg/dL Normal 0.0-0.2 Total Protein 6.5 GM/DL Normal 6.4-8.2 Albumin 2.7 GM/DL Low 3.2-5.2 Albumin/Globulin Ratio 0.7 Low 1.2-2.2 Basic Metabolic Profile 04/02/2020 [facility] [address] [place] [address] [phone] Glucose, Fasting 150 mg/dL High 70-100 Blood [...] mg/dL Low 8.8-10.2 Laboratory test finding 04/02/[address] [address] [phone] C Reactive Protein Quantitativ 8.74 mg/dL High 0 .00-0.30 5 Influenza A/B RSV Covid Amp 04/02/[address] [address] [phone] Influenza A Amplification NEGATIVE Normal Negati ve 6 Influenza B Amplification NEGATIVE Normal Negative 7 RSV Amplification NEGATIVE Normal Negative 8 Sars Covid-19 Amplification NEGATIVE Normal Negative 9 Laboratory test finding 01/09/[address] [address] [phone] Bedside Glucose 241 mg/dL High 80-115 1 [...] 3 Troponin I Reference Interva l for [employer] LOCI: 99th Percentile= 0.00-0.045 ng/ml Risk Stratification: [...] Little GFR Left ESRD GFR <15 on FAMILY THERAPIST 5 --- 04/02/20 1259 --- C-REACT PROT [...] pathogens. DISCLAIMER: Testing was performed using the [employer] SARS-CoV-2 test. This test was developed and its performance characteristics determined by [employer]. 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 Bharti Melissa,DO 11/29/2019 R60.0 Localized edema Bharti Melissa,DO 11/29/2019 I73.9 Peripheral vascular disease, uns pecified Bharti Melissa, 11/29/2019 E11.9 Type 2 diabetes mellitus without complications Bharti Melissa, 11/29/2019 D50.9 Iron deficiency anemia, unspecif ied Bharti Melissa, 11/29/2019 I13.0 Hypertensive heart a nd chronic kidney disease with heart failure and stage 1 through stage 4 chronic kidney disease, or unspecified chronic kidney disease Bharti Melissa, 11/29/2019 I50.32 Chronic diastolic (congestive) h eart failure Bharti Melissa, 11/29/2019 N18.3 Chronic kidney disease, stage 3 (moderate) Bharti Melissa, 10/24/2019 L30.9 Dermatitis, unspecified Fatimah Brandt, [facility] 10/24/2019 E11.65 Type 2 diabetes mellitus with hy perglycemia Fatimah Brandt, [facility] 10/24/2019 I50.32 Chronic diastolic (congestive) h eart failure Fatimah Brandt, [facility] 10/24/2019 N18.3 Chronic kidney disease, stage 3 (moderate) Fatimah Brandt, [facility] 10/24/2019 I48.91 Unspecified atrial fibrillation Fatimah Brandt, [facility] 10/24/2019 Z79.01 [facility] (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 Fatimah Brandt, [facility] 10/24/2019 E78.5 Hyperlipidemia, unspecified Sonia Brandt, [facility] 10/24/2019 D50.9 Iron deficiency anemia, unspecif ied Fatimah Brandt, [facility] Plan of Treatment No Information Available Functional Status Description No Information Available Mental Status Description No Information Available Referrals Description No Information Available
--- OUTSIDE RECORDS SUMMARY | 2020-04-11 15:50 | CCD ---
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 I70.248 Active 621803696 Problem Non-pressure chronic ulcer o f other part of left lower leg with fat layer exposed L97.822 Active 48107739 Problem Idiopathic chronic venous hy pertension of right lower extremity with 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 Active 006403053 Problem Atherosclerosis of [place] of right lower extremity with ulceration of ankle I70.233 Active [id number] ALLERGIES Allergen (clinical drug ingredient) Drug/Non Drug Allergy do cumented on EMR Reaction Allergy Type Onset Date Status Penicillin (For Allergies Use Only) Unknown Drug Allerg y Active ENCOUNTERS from 1950 to 2020-04-06 Encounter Location Date Provider Diagnosis [facility] Wound Care [address] [place] [address] Mar Makenzie Partida IMMUNIZATIONS Vaccine Route Administration Date [...] day for 10 day(s) 2 Jan, Not-Taking Hydrocortisone 1 % 1 application to [...] Once a day for 10 day(s) Feb, Not-Taking Warfarin Sodium 2.5 MG 1 [...] a day for 30 day(s) Active PROCEDURES No Information RESULTS No Results REASON FOR VISIT Cancel [facility] Apt. MEDICAL (GENERAL) HISTORY Type Description Date Medical [...] TREATMENT Next Appt Details Provider Name:Makenzie Partida, 04-11 01:30:00 PM, [address] [place], [address], Insurance Providers Payer Name Payer Address Payer Phone Insured Name Patient Relati onship to Insured Coverage Start Date Coverage End Date MEDICARE Part A and B [address] [facility] [address] MUKESH FLETCHER MEDICAID [employer] [address] [place] [address] MUKESH FLETCHER self
--- OUTSIDE RECORDS SUMMARY | 2020-04-11 15:50 | CCD | Continuity of Care Document ---
Author Author Sallie MELISSA Organization Unknown Address [address] [address] Phone [phone] Care Team Providers Care Financial Services Manager Name Role Phone Bharti Melissa DO AUTM Unavailable Problems Description No Information Available Social History Type Date Description Comments Sex Unknown Allergies, Adverse Reactions, Alerts Description No Information Available Medications Active Medications SIG Qnty Indications Ordering Provide r Date Ropinirole HCL 0.25mg Tablets 1 tab po bid 30tabs Bharti Melissa,DO 03/29/2020 Rosuvastatin Calcium 20mg Tablets 1 by mouth at hs 30tabs Bharti Mleissa,DO 03/29/2020 Senna 8.6mg Capsules 2 by mouth [...] and dinner (4 total daily) 120caps Bharti Yennifer,DO 03/28/2020 Furosemide 40mg Tablets 1 by mouth every day Bharti Melissa,DO 03/28/2020 Ferrous Sulfate 325(65Fe) mg Table ts 1 by mouth every day Bharti Melissa,DO 03/28/2020 Vitamin D3 Complete Tablets 1 po daily 30 Bharti Melissa,DO 03/28/2020 Aspirin Adult Low Dose 81mg Tablet s DR 1 by mouth every day Bharti Yennifer,DO 03/28/2020 Allopurinol 100mg Tablets 1 by mouth every day Bharti Yennifer,DO 03/28/2020 Metoprolol Tartrate 50mg Tablets take one tablet by mouth daily for 30 days Bharti Quinonesgs,DO 03/28/2020 Levemir 100Unit/ML Solution inject 20 units subcutaneously daiy for 30 days 40ml Bharti Pate s,DO 03/28/2020 Oxycodone-Acetaminophen 5-325mg Ta blets 1 tab every 4 hours as needed for moderate pain 5-7. not to exceed 5 per day for 5 days Bharti Yennifer,DO 03/28/2020 Immunizations Description No Information Available Vital Signs Description No Information Available Results Test Acquired Date Facility Test Result H/L Range Note PT & Aptt 04/02/2020 [facility] nter [address] [place] [address] [phone] Prothrombin Time 20.7 seconds High 12.5-14.3 Inr 1.74 Normal 1 Partial Thromboplastin Time 54.7 seconds High 24.2-38.5 Laboratory test finding 01/09/2020 [facility] [address] [place], [place] [address] [phone] Bedside Glucose 241 mg/dL High 80-115 1 THERAPUTIC HUMAN INR VALUES INDICATIONS NORMAL RANGES PROPHYLAXIS/TREATMENT OF: VENOUS THROMBOSIS 2.0-3.0 PULMONARY EMBOLISM 2.0-3.0 PREVENTION OF SYSTEMIC EMBOLISM FROM: TISSUE HEART VALVES 2.0-3.0 ACUTE MYOCARDIAL INFARCTION 2.0-3.0 VALVULAR HEART DISEASE 2.0-3.0 ATRIAL FIBRILLATION 2.0-3.0 MECHANICAL VALVES(HIGH RISK) 2.5-3.5 RECURRENT MYOCARDIAL INFARCTION 2.5-3.5 Procedures Description No Information Available Medical Devices [...] fibrillation, uns pecified Bharti Melissa,DO 03/28/2020 Z79.01 [facility] (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 Bharti Melissa,DO [...] Unspecified atrial fibrillation Bharti Melissa,DO 02/21/2020 Z79.01 [facility] (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 Bharti Melissa,DO [...] Melissa, 10/24/2019 L30.9 Dermatitis, unspecified Fatimah Brandt, [facility] 10/24/2019 E11.65 Type 2 diabetes mellitus with hy perglycemia Fatimah Brandt, [facility] 10/24/2019 I50.32 Chronic diastolic (congestive) h eart failure Fatimah Brandt [facility] 10/24/2019 N18.3 Chronic kidney disease, stage 3 (moderate) Fatimah Brandt, [facility] 10/24/2019 I48.91 Unspecified atrial fibrillation Fatimah Brandt [facility] 10/24/2019 Z79.01 [facility]iary (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 Fatimah Brandt, [facility] 10/24/2019 E78.5 Hyperlipidemia, unspecified Sonia Brandt, [facility] 10/24/2019 D50.9 Iron deficiency anemia, unspecif ied Fatimah Brandt [facility] Plan of Treatment No Information Available Functional Status Description No Information Available Mental Status Description No Information Available Referrals Description No Information Available
--- OUTSIDE RECORDS SUMMARY | 2020-04-11 15:50 | CCD | Continuity of Care Document ---
Author Author Sallie BROWN PA Organization Unknown Address [address] [facility], [address] [place] [address] Phone [phone] Care Team Providers Care Mammalogy Teacher Name Role Phone Aaron Kurtz AUTM Bill Love D.O. AUTM [phone] Bharti De Oliveira D.O. AUTM [phone] E Pre Op AUTM [phone] Problems Active Problems Provider Date Essential hypertension [...] lb BMI (Body Mass Index) 44.1 kg/m2 [place] Body Weight 100 lb Weight 99.112 kg BSA (Body Surface Area) 1.92 m2 01/16/2020 9:09am BP Systolic 167 mmHg BP Diastolic 92 mmHg Height 59 inches 4'11" Weight 217.00 lb Stated BMI (Body Mass Index) 43.8 kg/m2 [place] Body Weight 100 lb Weight 98.431 kg BSA (Body Surface Area) 1.91 m2 Results Test Acquired Date Facility Test Result H/L Range Note Wound Culture And Gram St 04/02/2020 [facility] [place] [address] [phone] Gram Stain (SEE NOTE) Normal 1, 2 Wound Culture FULL REPORT IN L <SEE NOTE> Normal 3, 4 Laboratory test finding 01/09/2020 [facility] Main Lab [address] [place] [address] [phone] Bedside Glucose 241 mg/dL High 80-115 1 inpt [facility] 2 FEW EPITHELIAL CELLS MANY GRAM NEGATIVE RODS 3 FULL REPORT IN LAB NOTES (eC W and [facility]). ORGANISM 1: KLEBSIELLA PNEUMONIAE QUANTITY OF GROWTH HEAVY ORGANISM 2: ENTEROBACTER AEROGENES QUANTITY OF GROWTH HEAVY ORGANISM 3: ENTEROCOCCUS FAECALIS QUANTITY OF GROWTH FEW ORGANISM 4: ENTEROCOCCUS AVIUM QUANTITY OF GROWTH MODERATE Susceptibility guidelines for Enterococcus avium have not been established by NCCLS and, therefore, susceptiblity testing is not available. ORGANISM 1: KLEBSIELLA PNEUMONIAE ORGANISM 2: ENTEROBACTER AEROGENES ORGANISM 3: ENTEROCOCCUS FAECALIS ORGANISM 4: ENTEROCOCCUS AVIUM KLEBSIELLA PNEUMONIAE: REACTION TRIMETHOPRIM/SULFAMETHOXAZOLE IV 160mg TMP & 800mg SMXq6h <=20 S TRIMETHOPRIM/SULFAMETHOXAZOLE PO Bactrim DS Bid <=20 S AMPICILLIN IV 500mg q6h >=32 R AMPICILLIN PO 500mg q6h fasting >=32 R GENTAMICIN IV 80mg q8h <=1 S CEFAZOLIN IV 1gm q8h <=4 S LEVOFLOXACIN IV 500mg qd <=0.12 S LEVOFLOXACIN PO 250mg qd <=0.12 S LEVOFLOXACIN PO 500mg qd <=0.12 S TOBRAMYCIN IV 80mg q8h <=1 S CEFTRIAXONE IV 1gm q24h <=1 S CEFTAZIDIME IV 1gm q8h <=1 S AMPICILLIN/SULBACTAM IV 1.5g q6h 8 S PIPERACILLIN/TAZOBACTAM IV 2.25 gm q6h <=4 S AZTREONAM IV 1gm q8h <=1 S ERTAPENEM IV 1gm qd <=0.5 S MEROPENEM IV 1 gm q8h <=0.25 S MEROPENEM IV 500 mg q8h <=0.25 S TIGECYCLINE IV 50mg q12h 1 S CEFEPIME IV 1 gm q12h <=1 S CEFEPIME IV 2 gm q12h <=1 S EXTD BRD SPCTRM BETA LACTAMASE IV NEGATIVE FOR ESBL ENTEROBACTER AEROGENES: REACTION TRIMETHOPRIM/SULFAMETHOXAZOLE IV 160mg TMP & 800mg SMXq6h <=20 S TRIMETHOPRIM/SULFAMETHOXAZOLE PO Bactrim DS Bid <=20 S GENTAMICIN IV 80mg q8h <=1 S CEFAZOLIN IV 1gm q8h >=64 R LEVOFLOXACIN IV 500mg qd >=8 R LEVOFLOXACIN PO 250mg qd >=8 R LEVOFLOXACIN PO 500mg qd >=8 R TOBRAMYCIN IV 80mg q8h <=1 S CEFTRIAXONE IV 1gm q24h <=1 S CEFTAZIDIME IV 1gm q8h <=1 S PIPERACILLIN/TAZOBACTAM IV 2.25 gm q6h <=4 S AZTREONAM IV 1gm q8h <=1 S ERTAPENEM IV 1gm qd <=0.5 S MEROPENEM IV 1 gm q8h <=0.25 S MEROPENEM IV 500 mg q8h <=0.25 S TIGECYCLINE IV 50mg q12h 1 S CEFEPIME IV 1 gm q12h <=1 S CEFEPIME IV 2 gm q12h <=1 S ENTEROCOCCUS FAECALIS: REACTION TETRACYCLINE PO 250 mg qid >=16 R PENICILLIN G IV 1 mu q6H 2 S PENICILLIN G IV 1 mu q6h 2 S PENICILLIN G PO 250mg q6h fasting 2 S AMPICILLIN IV 500mg q6h <=2 S AMPICILLIN PO 500mg q6h fasting <=2 S ERYTHROMYCIN IV 500mg q6h >=8 R ERYTHROMYCIN PO 500mg q6h >=8 R GENTAMICIN 500 IV 80mg q8h R LEVOFLOXACIN IV 500mg qd 1 S LEVOFLOXACIN PO 250mg qd 1 S LEVOFLOXACIN PO 500mg qd 1 S CIPROFLOXACIN IV 400mg bid <=0.5 S CIPROFLOXACIN PO 500mg q12h <=0.5 S VANCOMYCIN IV 500mg q8h 1 S LINEZOLID (ZYVOX) IV 600MG Q12HR 2 S LINEZOLID (ZYVOX) PO 600MG Q12HR 2 S 4 04/04/20 (Thr Apr 04) 11:45 AM VIVEK BROWN pt inpt [facility] Procedures Date Code Description Status 03/25/2020 24027 Bypass Graft W/ Goretex Fem, Pop liteal Completed 03/25/2020 28204 Thromboendarterectomy Common Fem oral Completed 01/09/2020 11019 Moderate Sedation Se rvices; Same Phys Intl 15 Mins; PT >= 5 Years Completed 01/09/2020 54927 Catheter Introduction Aorta Comp leted Medical Devices Description No Information Available Encounters Type Date Location Provider Dx Diagnosis Office Visit 04/02/2020 9:00a [facility] NICHOLE Brownlee I70.248 [facility] [place] art of left leg with ulcer oth prt low leg Z95.828 Presence of other vascular i mplants and grafts I87.2 Venous insufficiency (chroni c) (peripheral) 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 Z68.41 Body mass index [BMI]40.0-44 .9, adult Office Visit 01/16/2020 9:15a [facility] NICHOLE Brownlee I70.249 [facility] [place] arteries of left leg w ulc eration of unsp site I87.2 Venous insufficiency (chroni c) (peripheral) 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 [address] [phone] Deedee Bernardo MD [facility] Closed 020 [address] [facility] [address] [place] [address] [phone]
--- OUTSIDE RECORDS SUMMARY | 2020-04-11 15:51 | CCD ---
Author Author [facility] Organization [facility] Address Unknown Phone Unavailable Care Team Providers Care X Ray Service Technician Name Role Phone Enmanuel BALL MD Unavailable [...] is protected by Article 27-F of the [facility] Public Health law. If you continue you may have access to information: Regarding HIV / AIDS; Provided by facilities licensed or operated by the [facility] Office of Mental Health; or Provided by the [facility] Office for People With Developmental Disabilities. If such information is present, then the following [facility] mandated warning applies: This information has been [...] law may result in a fine or halfway sentence or both. A general authorization for the release of medical or other information is NOT sufficient authorization for further disc losure. Family History Family Member Name Family Member Gender Family Member Status Date o f Status Description Data Source(s) Unknown Male Problem MEDENT ([facility] Encounters Encounter Providers Location Date Indications Data Source(s ) Unknown [address] [facility] [address] 04/03/2020 12:00:00 AM EST eCW1 ([facility]) Office Visit Attender: Renetta Wright/Andria/Mario/Slim song 04/02/2020 08:00:00 AM EST MEDENT ([facility]) ([id number]) For Template [place] [address] [place], [place] [id number] 03/21/2020 12:00:00 AM EST eCW1 (Critical access hospital) ([id number]) For [place] [address] [place], [place] [id number] 03/07/2020 12:00:00 AM EST eCW1 (Critical access hospital) Outpatient Attender: SIRENA BALL MD Main Office 03/05/2020 01:30:00 PM EST MEDENT ([facility]) ([id number]) For [place] [address] [place], [place] [id number] 02/29/2020 12:00:00 AM EST eCW1 (Critical access hospital) ([id number]) For [place] [address] [place] [phone] 02/22/2020 12:00:00 AM EST eCW1 (Critical access hospital) ([id number]) For [place] [address] [place] [phone] 02/08/2020 12:00:00 AM EST eCW1 (Critical access hospital) Unknown [address] [facility] [address] 02/05/2020 12:00:00 AM EST eCW1 ([facility]) ([id number]) For [place] [address] [place] [phone] 02/01/2020 12:00:00 AM EST eCW1 (Critical access hospital) Office Visit, Est Pt., Level 3 PC [address] [place] [address] 01/25/2020 12:00:00 AM EST eCW1 ([facility]) Outpatient [address] [facility] [address] 01/18/2020 12:00:00 AM EDT eCW1 ([facility]) Outpatient Attender: Renetta Garciaang/Cutler/Mario/R eindl 01/16/2020 09:15:00 AM EDT MED[facility] ([facility] (WND [id number]) New Patient [address] [place] [phone] 01/11/2020 12:00:00 AM EDT eCW1 (Critical access hospital) Outpatient Attender: Renetta Pantoja RPA Kyle/Cutler/Mario/R eindl 12/11/2019 01:15:00 PM EDT MEDENT ([facility] ) Outpatient Attender: Renetta Garciaang/Cutler/Mario/R eindl 12/06/2019 11:00:00 AM EDT MEDENT ([facility] ) Outpatient 008 10/24/2019 10:18:00 AM EDT - 10/24/2019 10:18:00 AM EDT Lab test [facility] Lab test Medications Medication Brand Name Start Date Product Form Dose Route Admi nistrative Instructions Pharmacy Instructions Status Indications Reaction Description Data Source(s) Sertraline 50 MG Oral Tablet Sertraline HCL 03/29/2020 12:00:00 AM EST ORAL active MEDENT ([facility]) sennosides, SHELTER 8.6 MG Oral Capsule Senna 03/29/2020 12:00:00 AM EST ORAL active MEDENT ([facility]) Acetaminophen 500 MG Oral Tablet [Mapap] Mapap 03/29/2020 12:00: 00 AM EST ORAL active MED[facility] ([facility]) sitagliptin 50 MG Oral Tablet [Januvia] Januvia 03/29/2020 12:00:0 0 AM EST ORAL active MEDENT ([facility]) Rosuvastatin calcium 20 MG Oral Tablet Rosuvastatin Calcium 03/29/2020 12:00:00 AM EST ORAL active MEDENT ([facility]) ropinirole 0.25 MG Oral Tablet Ropinirole HCL 03/29/2020 12:00:00 AM EST ORAL active MEDENT ([facility]) latanoprost 0.05 MG/ML Ophthalmic Solution [Xalatan] Xalatan 03/28/2020 12:00:00 AM EST OPHTHALMIC active MEDEN T ([facility]) icosapent ethyl 1000 MG Oral Capsule [Vascepa] Vascepa 03/28/2020 12:00:00 AM EST ORAL active MEDENT ([facility]) Furosemide 40 MG Oral Tablet Furosemide 03/28/2020 12:00:00 AM EST ORAL active MEDENT ([facility]) ferrous sulfate 325 MG Oral Tablet Ferrous Sulfate 03/28/2020 12:00 :00 AM EST ORAL active MEDENT ([facility]) rivaroxaban 20 MG Oral Tablet [Xarelto] Xarelto 03/28/2020 12:00:0 0 AM EST ORAL active MEDENT ([facility]) Omeprazole 20 MG Delayed Release Oral Tablet Omeprazole 03/28/2020 12:00:00 AM EST ORAL active MEDENT ([facility]) Metformin hydrochloride 500 MG Oral Tablet Metformin HCL 03/28/2020 12:00:00 AM EST ORAL active MEDENT ([facility]) Acetaminophen 325 MG / Oxycodone Hydrochloride 5 MG Or al Tablet Oxycodone-Acetaminophen 03/28/2020 12:00:00 AM EST active MEDENT ([facility]) Aspirin 81 MG Delayed Release Oral Tablet Aspirin Adult Low Dose 03/28/2020 12:00:00 AM EST ORAL active M EDENT ([facility]) Ascorbic Acid 60 MG / Beta Carotene 5000 UNT / Copper Sulfate 40 MG / dl-alpha tocopheryl acetate 30 UNT / Sodium Selenite 0.04 MG / Zinc Oxide 40 MG Oral Tablet Vitamin D3 Complete 03/28/2020 12:00:00 AM EST ORAL active MEDENT ([facility]) Metoprolol Tartrate 50 MG Oral Tablet Metoprolol Tartrate 12:00:00 AM EST ORAL active MEDENT ([facility]) Allopurinol 100 MG Oral Tablet Allopurinol 03/28/2020 12:00:00 AM EST ORAL active MEDENT ([facility]) insulin detemir 100 UNT/ML Injectable Solution [Levemir] Lev kaley 03/28/2020 12:00:00 AM EST SUBCUTANEOUS active MEDENT ([facility]) icosapent ethyl 1000 MG Oral Capsule [Vascepa] Vascepa 03/05/2020 12:00:00 AM EST ORAL active [facility] ([facility]) Allopurinol 100 MG Oral Tablet Allopurinol 03/04/2020 12:00:00 AM EST ORAL active [facility] ([facility]) rivaroxaban 20 MG Oral Tablet [Xarelto] Xarelto 03/04/2020 12:00:0 0 AM EST ORAL active [facility] ([facility] insulin detemir 100 UNT/ML Injectable Solution [Levemir] Lev kaley 03/04/2020 12:00:00 AM EST SUBCUTANEOUS active MEDENT ([facility]) latanoprost 0.05 MG/ML Ophthalmic Solution Latanoprost 03/04/2020 12:00:00 AM EST OPHTHALMIC active MEDENT ([facility]) Sertraline 50 MG Oral Tablet Sertraline HCL 03/04/2020 12:00:00 AM EST ORAL active [facility] ([facility]) sitagliptin 50 MG Oral Tablet [Januvia] Januvia 03/04/2020 12:00:0 0 AM EST ORAL active [facility] ([facility]) Rosuvastatin calcium 20 MG Oral Tablet [Crestor] Crestor 03/04/2020 12:00:00 AM EST ORAL active [facility] ([facility]) Metoprolol Tartrate 50 MG Oral Tablet Metoprolol Tartrate 12:00:00 AM EST ORAL active MED[facility] ([facility]) sennosides, SHELTER 8.6 MG Oral Tablet Senna-Lax 03/04/2020 12:00:00 AM EST ORAL active MED[facility] ([facility]) Acetaminophen 500 MG Oral Tablet Acetaminophen Extra Strengt h 03/04/2020 12:00:00 AM EST ORAL active M EDENT ([facility]) Antifungal 03/04/2020 12:00:00 AM EST active MEDENT ([facility]) Metformin hydrochloride 500 MG Oral Tablet Metformin HCL 03/04/2020 12:00:00 AM EST ORAL active [facility] ([facility]) ropinirole 0.25 MG Oral Tablet Ropinirole HCL 03/04/2020 12:00:00 AM EST ORAL active MED[facility] ([facility]) Cholecalciferol 1000 UNT Oral Tablet Vitamin D (Cholecalcife rol) 03/04/2020 12:00:00 AM EST ORAL active M EDENT ([facility]) Furosemide 40 MG Oral Tablet Furosemide 03/04/2020 12:00:00 AM EST ORAL active MEDENT ([facility]) Glucagon 1 MG Injection Glucagon Emergency 03/04/2020 12:00:00 AM EST active MEDENT ([facility]) Magnesium Hydroxide 80 MG/ML Oral Suspension Milk Of Magnesi a 03/04/2020 12:00:00 AM EST ORAL active M EDENT ([facility]) Aspirin 81 MG Delayed Release Oral Tablet Aspirin 03/04/2020 1 2:00:00 AM EST ORAL active MEDENT ([facility]) Omeprazole 20 MG Delayed Release Oral Capsule Omeprazole 03/04/2020 12:00:00 AM EST ORAL active MEDENT ([facility]) ferrous sulfate 325 MG Oral Tablet Iron 03/04/2020 12:00:00 AM EST ORAL active MEDENT ([facility]) Bisacodyl 10 MG Rectal Suppository Bisacodyl 03/04/2020 12:00:00 AM EST active MEDENT ([facility]) Sodium Phosphate, Dibasic 35.5 MG/ML / S odium Phosphate, Monobasic 96.4 MG/ML Enema Enema Disposable 03/04/2020 12:00:00 AM EST active MEDENT ([facility]) Insurance Providers Payer name Policy type / Coverage type Policy ID Covered republican ID Covered republican's relationship to camp[place] Policy [place] Plan Information EMEDNY [id number] SP [id number] MEDICARE [id number] SP [id number] N16 MEDICARE C [id number] S [id number] N16 MEDICAID M [id number] MEDICARE C [id number] S [id number] A [facility] 010/510 [id number] SP [id number] IAIN [id number] SP [id number] 200 MEDICARE [id number] SP [id number] A MEDICAID [id number] SP [id number] MEDICARE [id number] SP [id number] A Bright Care Commercial [id number] Self [id number] Medicaid Medigap Part B [id number] Self [id number] Medicare Part B Medicare Primary [id number] Self [id number] Bright Care Commercial [id number] Self [id number] Medicaid Medigap Part B [id number] Self [id number] Medicare Part B Medicare Primary [id number] Self [id number] MEDICAID [id number] Marylou [id number] MEDICARE [id number] Marylou [id number] A MEDICAID M [id number] Self [id number] MEDICARE A [id number] Self [id number] A Medicaid Medigap Part B [id number] Self [id number] Iain Care Commercial [id number] Self [id number] Medicare Part B Medicare Primary [id number] Self [id number] MEDICAID PI PI MEDICARE PI PI Medicaid Medigap Part B [id number] Self [id number] Bright Care Commercial [id number] Self [id number] Medicare Part B Medicare Primary [id number] Self [id number] IAIN [id number] SP [id number] 200 MEDICARE [id number] SP [id number] A IAIN CARE [place] O [id number] S [id number] MEDICARE - [place] MCR [id number] S [id number] MEDICAID [id number] SP [id number] MEDICARE [id number] SP [id number] A Medicaid Medigap Part B [id number] Self [id number] Medicare (Part B) Medicare Primary [id number] Self [id number] [place]AIN [place] [id number] SP [id number] IAIN 7 SP 7 Medicaid [place] Medigap Part B Self Medicare [facility] Medicare Primary Self Medicare (Part B) Medicare Primary Self Medicaid Medigap Part B Self MEDICAID -O/P [id number] MEDICARE PART A-O/P [id number] 18 [id number] MEDICAID - O/P EMERGENCY ROOM [id number] MEDICARE [id number] S [id number] A MEDICAID [id number] S [id number] MCRB [id number] S [id number] A Medicare Medicare Primary Self MEDICAID -RECURRING [id number] MEDICARE -RECURRING [id number] 18 [id number] MEDICARE PART A -RECURRING [id number] 18 [id number] MEDICAID JUDY [id number] S [id number] COMMERCIAL GENERIC U [id number] Self [id number] MEDICAID-SNF [id number] MEDICARE PART A-SNF [id number] 18 [id number] [employer] O [id number] S [id number] SELFPAY 5 UNAVAILABLE 1 UNAVAILA BLE MEDICAID 3 [id number] MEDICARE 4 [id number] A MEDICAID-I/P [id number] MEDICARE PART A-I/P [id number] 18 [id number] Problems, Conditions, and Diagnoses Code Display Name Description Problem Type Effective Dates Data Source(s) 731567559 Dyspnea Dyspnea Problem 03/05/2020 12:00:00 AM ES T MEDENT ([facility]) [id number] Preoperative cardiovascular examination Preoperative cardiovascular examination Problem 03/05/2020 12:00:00 AM EST MEDENT ([facility]) [id number] Permanent atrial fibrillation Permanent atrial fibrill ation Problem 03/05/2020 12:00:00 AM EST MEDENT ([facility]) L97.822 [id number] Non-pressure chronic ulcer of other part of left lower leg with fat layer exposed Problem 01/11/2020 12:00:00 AM EDT eCW1 ([facility]) I70.248 [id number] 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 Problem 01/11/2020 12:00:00 AM EDT eCW1 ([facility]) Z5189 Encounter for other specified aftercare Encounter for other specified aftercare Diagnosis 10/24/2019 10:18:00 AM EDT [facility] Surgeries/Procedures Procedure Description Date Indications Data Source(s) TEAEC W/WO PATCH GRAFT COMMON FEMORAL 03/25/2020 12:00 :00 AM EST MEDENT ([facility], ) BYP OTH/THN VEIN FEMORAL-POPLITEAL 03/25/2020 12:00:00 AM EST MEDENT ([facility], ) FINE NEEDLE ASPIRATION W/O IMAGING GUIDANCE 03/21/2020 12:00:00 AM EST eCW1 ([facility]) FINE NEEDLE ASPIRATION W/O IMAGING GUIDANCE 03/07/2020 12:00:00 AM EST eCW1 ([facility]) ECG ROUTINE ECG W/LEAST 12 LDS W/I&R 03/05/2020 12:00: 00 AM EST MEDENT ([facility]) FINE NEEDLE ASPIRATION W/O IMAGING GUIDANCE 02/29/2020 12:00:00 AM EST eCW1 ([facility]) FINE NEEDLE ASPIRATION W/O IMAGING GUIDANCE 02/22/2020 12:00:00 AM EST eCW1 ([facility]) FINE NEEDLE ASPIRATION W/O IMAGING GUIDANCE 02/08/2020 12:00:00 AM EST eCW1 ([facility]) FINE NEEDLE ASPIRATION W/O IMAGING GUIDANCE 02/01/2020 12:00:00 AM EST eCW1 ([facility]) FINE NEEDLE ASPIRATION W/O IMAGING GUIDANCE 01/25/2020 12:00:00 AM EST eCW1 ([facility]) FINE NEEDLE ASPIRATION W/O IMAGING GUIDANCE 01/18/2020 12:00:00 AM EDT eCW1 ([facility]) FINE NEEDLE ASPIRATION W/O IMAGING GUIDANCE 01/11/2020 12:00:00 AM EDT eCW1 ([facility]) Catheter Introduction Aorta 01/09/2020 12:00:00 AM EDT MEDENT ([facility], ) Moderate Sedation Services; Same Phys Intl 15 Mins; PT >= 5 Years 01/09/2020 12:00:00 AM EDT MEDENT ([facility] ) Results ID Date Data Source [id number] 04/09/2020 08:48:00 AM EST [facility] Name Value Range Interpretation Code Description Data Isatu rce(s) Supporting Document(s) SARS coronavirus 2 RNA [Presence] in Res piratory specimen by FRANCISCO with probe detection NEGATIVE [place] This lab was ordered by [facility] a nd reported by [facility]. ID Date Data Source [id number] 04/02/2020 01:23:00 PM EST MEDENT ([facility]) Name Value Range Interpretation Code Description Data Isatu rce(s) Supporting Document(s) Appearance, Urine RFX Laboratory test result [facility] Color, Urine RFX Laboratory test result MED[facility] ([facility] PH,Urine RFX 5.0 units 5.0-9.0 MED[facility] ([facility] Specific [place] Ur Auto RFX 1.008 1.002-1.035 MED[facility] ([facility] Glucose, Urine (Ua) Auto RFX Laboratory test result MED[facility] ([facility] Protein, Urine Auto RFX Laboratory test result [facility] ([facility] Ketone, Urine Auto RFX Laboratory test result MED[facility] ([facility] Urobilinogen, Urine Auto RFX 0.2 mg/dL 0.0-2.0 MED[facility] ([facility] Nitrite, Urine Auto RFX Laboratory test result MED[facility] ([facility] Bilirubin, Urine Auto RFX Laboratory test result MED[facility] ([facility] Blood, Urine Blood RFX Laboratory test result MED[facility] ([facility] WBC, Urine Auto RFX 60 /HPF 0-3 MED[facility] Leukocyte Esterase Ur Auto RFX Laboratory test result MEDENT ([facility] RBC, Urine Auto RFX 12 /HPF 0-3 MED[facility] Squam Epithelial Cell Ur Aurfx 3 /HPF 0-6 MED[facility] ([facility] Bacteria, Urine Auto RFX Laboratory test result MEDENT ([facility] Hyaline Cast, Urine Auto RFX 0 /LPF 0-1 M EDENT ([facility]) Mucus, Urine RFX Laboratory test result MEDENT ([facility]) ID Date Data Source [id number] 04/02/2020 11:22:00 AM EST MEDENT ([facility]) Name Value Range Interpretation Code Description Data Isatu rce(s) Supporting Document(s) Lactate [Mass/volume] in Serum or Plasma 2.0 mmol/L 0.4-2.0 [facility] Y/N query for Sepsis Lactate Rule: Y C reactive protein [Mass/volume] in Serum or Plasma by High sensitivity method 8.74 mg/dL 0.00-0.30 [facility] ) <content>--- 04/02/20 1259 ---</content >
<content>C-REACT PROT QT previously reported as:</content>
<content>8.74 H MG/DL</content>
<content></content>
<content></content>
<content>--- 04/02/20 1300 ---</content>
<content>C-REACT PROT QT previously reported as:</content>
<content>< 0.30 MG/DL</content>
<content>--- 04/02/20 1259 ---</content>
<content>C-REACT PROT QT previously reported as:</content>
<content>8.74 H MG/DL</content>
<content></content>
<content></content>
<content></c ontent>
<content></content>
<content></content>
<content></content> ID Date Data Source [id number] 04/02/2020 11:22:00 AM EST [facility] Name Value Range Interpretation Code Description Data Isatu rce(s) Supporting Document(s) Blood Urea Nitrogen 15 mg/dL 7-18 MED[facility] ([facility] Glomerular Filtration Rate Laboratory test result [facility]) <content>Units are mL/min/1.73 m2</content>
<content></content>
<content>Chronic Kidney Disease Staging per NKF:</content>
<content></content>
<content>Stage I & II GFR >=60 Normal to Mildly Decreased</content>
<content>Stage III GFR 30- 59 Moderately Decreased</content>
<content>Stage IV GFR 15-29 Severely Decreased</content>
<content>Stage V GFR <15 Very Little GFR Left</content>
<content>ESRD GFR <15 on STERILE SUPPLY TECHNICIAN</content>
<content></content> Creatinine For GFR 0.96 mg/dL 0.55-1.30 MEDENT ([facility]) Glucose, Fasting 150 mg/dL 70-100 MED[facility] ([facility]) Sodium Level 141 meq/L 136-145 MEDENT ([facility]) Potassium Serum 3.7 meq/L 3.5-5.1 MEDENT ([facility]) Chloride Level 105 meq/L 98-107 MEDENT ([facility]) Carbon Dioxide Level 28 mmol/L 20-29 MEDENT ([facility]) Anion Gap 8 meq/L 8-16 MED[facility] ([place] [facility]) Calcium Level 8.6 mg/dL 8.8-10.2 MEDENT ([facility]) ID Date Data Source [id number] 04/02/2020 11:22:00 AM EST MEDENT ([facility]) Name Value Range Interpretation Code Description Data Isatu rce(s) Supporting Document(s) Ast/Sgot 24 IU/L MED[facility] ([facility]) Alt/SGPT 23 IU/L 0-32 MED[facility] ([place] [facility]) Alkaline Phosphatase 105 U/L 45-117 MEDENT ([facility]) Bilirubin,Total 0.3 mg/dL 0.2-1.0 MEDENT ([facility]) Bilirubin,Direct 0.0 mg/dL 0.0-0.2 MED[facility] ([facility]) Albumin/Globulin Ratio 0.7 1.2-2.2 MED[facility] ([facility]) Albumin 2.7 GM/DL 3.2-5.2 [facility] Total Protein 6.5 GM/DL 6.4-8.2 [facility] ([facility]) ID Date Data Source [id number] 04/02/2020 11:22:00 AM EST [facility] Name Value Range Interpretation Code Description Data Isatu rce(s) Supporting Document(s) CPK Creatine Phosphokinase 90 U/L 26-192 [facility] ([facility]) CK-MB Value Mass 1.5 ng/mL [facility] ([facility]) MB/CK Relative Index 1.66 [facility]) <content>DIAGNOSIS CRITERIA</content>
<content>MMB ng/ml Relative Index (RI)</content>
<content>NON-AMI < or = 5 N/A</content>
<content>CORTES ZONE > 5 < or = 4</content>
<content>AMI > 5 > 4</content>
<content></content> Troponin I Laboratory test result [facility] ([facility]) <content>Troponin I Reference Interval f or Siemens [place] LOCI:</content>
<content></content>
<content>99th Percentile= 0.00-0.045 ng/ml</content>
<content></content>
<content>Risk Stratification:</content>
<content><= 0.10 ng/ml Decreased Risk for Adverse Clinical</content>
<content>Events.</content>
<content>0.10-1.50 ng/ml Increased Risk for Adverse Clinical</content>
<content>Events. Evaluation of additional</content>
<content>criterion and/or repeat testing in 2-6</content>
<content>hours is suggested to rule out myocardial</content>
<content>damage.</content>
<content>>= 1.50 ng/ml Indicative of Myocardial Injury.</content>
<content></content> ID Date Data Source [id number] 04/02/2020 11:22:00 AM EST MEDENT ([facility]) Name Value Range Interpretation Code Description Data Isatu rce(s) Supporting Document(s) Erythrocyte sedimentation rate by Westergren method 93 mm/hr 0-30 MEDENT ([facility]) ID Date Data Source [id number] 04/02/2020 11:22:00 AM EST MED[facility] ([facility]) Name Value Range Interpretation Code Description Data Isatu rce(s) Supporting Document(s) White Blood Count 9.6 10 4.0-10.0 MEDENT ([facility]) Hemoglobin 10.1 g/dL 12.0-15.5 MEDENT ([facility]) Hematocrit 34.4 % 36.0-47.0 MEDENT ([facility]) Red Blood Count 3.84 10 4.00-5.40 MEDENT ([facility]) Mean Corpuscular HGB Conc 29.4 g/dL 32.0-36.5 MEDE NT ([facility]) Mean Corpuscular Hemoglobin 26.3 pg 27.0-33.0 ME DENT ([facility]) Mean Corpuscular Volume 89.6 fl 80.0-96.0 MEDENT ([facility]) Neutrophils % 75.7 % 36.0-66.0 MEDENT ([facility]) Platelet Count, Automated 352 10 150-450 MEDE NT ([facility]) Red Cell Distribution Width 15.4 % 11.5-14.5 ME DENT ([facility]) [place] % 7.0 % 0.0-5.0 MEDENT ([facility]) Lymph % 13.5 % 24.0-44.0 [facility] ([facility]) Eos % 1.6 % 0.0-3.0 [facility] ([facility]) Baso % 0.6 % 0.0-1.0 MED[facility] ([facility]) Immature Granulocyte % 1.6 % 0-3.0 MEDENT ([facility]) Nucleated Red Blood Cell % 0.0 % 0-0 MED ENT ([facility]) Neutrophils # 7.3 10 1.5-8.5 MEDENT ([facility]) [place] # 0.7 10 0.0-0.8 MEDENT [facility] [facility] Lymph # 1.3 10 1.5-5.0 MEDENT [facility] [facility] Eos # 0.2 10 0.0-0.5 MEDENT ([place] [facility]) Baso # 0.1 10 0.0-0.2 MEDENT ([place] [facility]) ID Date Data Source [id number] 04/02/2020 11:22:00 AM EST MEDENT ([facility]) Name Value Range Interpretation Code Description Data Isatu rce(s) Supporting Document(s) Prothrombin Time 20.7 s 12.5-14.3 MEDENT ([facility]) Inr 1.74 MEDENT ([place] [facility]) THERAPUTIC HUMAN INR VALUES INDICATIONS NORMAL RANGES PROPHYLAXIS/TREATMENT OF: VENOUS THROMBOSIS 2.0-3.0 PULMONARY EMBOLISM 2.0-3.0 PREVENTION OF SYSTEMIC EMBOLISM FROM: TISSUE HEART VALVES 2.0-3.0 ACUTE MYOCARDIAL INFARCTION 2.0-3.0 VALVULAR HEART DISEASE 2.0-3.0 ATRIAL FIBRILLATION 2.0-3.0 MECHANICAL VALVES(HIGH RISK) 2.5-3.5 RECURRENT MYOCARDIAL INFARCTION 2.5-3.5 Partial Thromboplastin Time 54.7 s 24.2-38.5 ME DENT ([facility]) ID Date Data Source [id number] 04/02/2020 11:08:00 AM EST [facility] Name Value Range Interpretation Code Description Data Isatu rce(s) Supporting Document(s) SARS coronavirus 2 RNA [Presence] in Res piratory specimen by FRANCISCO with probe detection NEGATIVE [facility] This lab was ordered by [facility] a nd reported by [facility]. ID Date Data Source [id number] 04/02/2020 11:08:00 AM EST MEDENT ([facility]) Name Value Range Interpretation Code Description Data Isatu rce(s) Supporting Document(s) Influenza A Amplification Laboratory test result MEDENT ([facility]) Negative results do not preclude influen za or RSV virus infection and should not be used as the sole basis for treatment or other patient management decisions. Influenza B Amplification Laboratory test result MEDENT ([facility]) Negative results do not preclude influen za or RSV virus infection and should not be used as the sole basis for treatment or other patient management decisions. RSV Amplification Laboratory test result MEDENT ([facility]) Negative results do not preclude influen za or RSV virus infection and should not be used as the sole basis for treatment or other patient management decisions. Laboratory test finding (navigational concept) Laboratory test result MEDENT ([facility]) A false negative result may occur if [...] pathogens. DISCLAIMER: Testing was performed using the [employer] SARS-CoV-2 test. This test was developed and its performance characteristics determined by [employer]. This test has not been FDA cleared [...] or revoked sooner. ID Date Data Source [id number] 04/02/2020 09:42:00 AM EST MARIUSZ [facility] ) Name Value Range Interpretation Code Description Data Isatu rce(s) Supporting Document(s) Wound Culture Laboratory test result Normal (applies t o non-numeric results) MARIUSZ ([facility], ) inpt [facility] Gram Stain Laboratory test result Normal (applies to non-n umeric results) [facility] ([facility], ) inpt [facility] ID Date Data Source [id number] 04/02/2020 09:42:00 AM EST MEDENT ([facility]) Name Value Range Interpretation Code Description Data Isatu rce(s) Supporting Document(s) Bacteria identified in Wound by Culture Laboratory test result Normal (applies to non-numeric results) [facility] ([facility]) FEW EPITHELIAL CELLS MANY GRAM NEGATIVE RODS ID Date Data Source [id number] 03/29/2020 11:00:00 AM EST [facility] Name Value Range Interpretation Code Description Data Isatu rce(s) Supporting Document(s) SARS coronavirus 2 RNA Not Detected [facility] This lab was ordered by [facility] and reported by [facility]. ID Date Data Source [id number] 03/27/2020 04:03:00 PM EST [facility] Name Value Range Interpretation Code Description Data Isatu rce(s) Supporting Document(s) SARS coronavirus 2 RNA [Presence] in Res piratory specimen by FRANCISCO with probe detection NEGATIVE [facility] This lab was ordered by [facility] a nd reported by [facility]. ID Date Data Source [id number] 03/21/2020 01:58:00 PM EST [facility] Name Value Range Interpretation Code Description Data Isatu rce(s) Supporting Document(s) SARS coronavirus 2 RNA [Presence] in Res piratory specimen by FRANCISCO with probe detection [facility] This lab was ordered by [facility] a nd reported by [facility]. ID Date Data Source [id number] 03/19/2020 10:15:00 AM EST [facility] Name Value Range Interpretation Code Description Data Isatu rce(s) Supporting Document(s) SARS coronavirus 2 RNA [facility] This lab was ordered by [facility] and reported by [facility]. ID Date Data Source [id number] 03/13/2020 11:00:00 AM EST [facility] Name Value Range Interpretation Code Description Data Isatu rce(s) Supporting Document(s) SARS coronavirus 2 RNA [facility] This lab was ordered by [facility] and reported by [facility]. ID Date Data Source [id number] 03/07/2020 10:20:00 AM EST [facility] Name Value Range Interpretation Code Description Data Isatu rce(s) Supporting Document(s) SARS coronavirus 2 RNA [facility] This lab was ordered by [facility] and reported by [facility]. ID Date Data Source [id number] 03/04/2020 03:42:00 PM EST MEDENT ([facility] Name Value Range Interpretation Code Description Data Isatu rce(s) Supporting Document(s) Platelets 318 172-450 [facility] White Blood Count 8.3 4.0-10.0 MEDENT ([facility] Red Blood Count 4.34 4.00-5.40 MEDENT ([facility] Hematocrit 39.2 MED[facility] ([facility]) Hemoglobin 11.6 [facility] ([facility]) ID Date Data Source [id number] 03/04/2020 03:42:00 PM EST MEDENT ([facility]) Name Value Range Interpretation Code Description Data Isatu rce(s) Supporting Document(s) Glucose 173 70-100 [facility] Sodium 141 136-145 [facility] Creatinine 0.93 0.6-1.0 [facility] ([facility]) Blood Urea Nitrogen 16 7-18 [facility] Carbon Dioxide 28 21-32 MED[facility] ([facility] Potassium 3.9 3.5-5.1 [facility] Chloride 104 98-107 [facility] Calcium 8.9 8.2-9.6 [facility] Glomerular filtration rate/1.73 sq M.pre dicted [Volume Rate/Area] in Serum or Plasma by Creatinine-based formula (MDRD) Laboratory test result MEDENT ([facility]) ID Date Data Source [id number] 03/03/2020 01:52:00 PM EST [facility] Name Value Range Interpretation Code Description Data Isatu rce(s) Supporting Document(s) SARS coronavirus 2 RNA [facility] This lab was ordered by [facility] and reported by [facility]. ID Date Data Source [id number] 02/14/2020 12:00:00 PM EST [facility] Name Value Range Interpretation Code Description Data Isatu rce(s) Supporting Document(s) SARS coronavirus 2 RNA [facility] This lab was ordered by [facility] and reported by [facility]. ID Date Data Source [id number] 02/08/2020 12:00:00 PM EST [facility] Name Value Range Interpretation Code Description Data Isatu rce(s) Supporting Document(s) SARS coronavirus 2 RNA [facility] This lab was ordered by [facility] and reported by [facility]. ID Date Data Source [id number] 02/01/2020 02:30:00 PM EST [facility] Name Value Range Interpretation Code Description Data Isatu rce(s) Supporting Document(s) SARS coronavirus 2 RNA [facility] This lab was ordered by [facility] and reported by [facility]. ID Date Data Source [id number] 01/16/2020 03:39:00 PM EDT MEDENT ([facility]) Name Value Range Interpretation Code Description Data Isatu rce(s) Supporting Document(s) Triglycerides 214 MEDENT ([facility]) HDL 35 [facility] Cholesterol 126 MED[facility] ([facility]) Chol/HDL Ratio 3.600 MEDENT ([facility]) Cholesterol in LDL [Mass/volume] in Serum or Plasma by calculation 48 MEDENT ([facility]) ID Date Data Source [id number] 01/09/2020 09:30:00 AM EDT MEDENT ([facility], ) Name Value Range Interpretation Code Description Data Isatu rce(s) Supporting Document(s) Glucose [Mass/volume] in Capillary blood by Glucometer 241 mg/dL 80-115 Above high normal MEDENT ([facility], ) ID Date Data Source [id number] 01/09/2020 09:30:00 AM EDT MEDENT ([facility]) Name Value Range Interpretation Code Description Data Isatu rce(s) Supporting Document(s) Bedside Glucose 241 mg/dL 80-115 MEDENT ([facility]) ID Date Data Source [id number] 01/05/2020 11:45:00 AM EDT [facility] Name Value Range Interpretation Code Description Data Isatu rce(s) Supporting Document(s) SARS coronavirus 2 RNA [facility] This lab was ordered by [facility] and reported by [facility]. ID Date Data Source [id number] 10/23/2019 08:29:00 AM EDT [facility] Name Value Range Interpretation Code Description Data Isatu rce(s) Supporting Document(s) BASIC METABOLIC PANEL [facility] BASIC METABOLIC PANEL Sodium [Moles/volume] in Serum or Plasma 137 mEq/L 136 - 145 [facility] Potassium [Moles/volume] in Serum or Plasma 5.1 mEq/L 3.5 - 5.1 [facility] Chloride [Moles/volume] in Serum or Plasma 100 mEq/L 98 - 107 [facility] Carbon dioxide, total [Moles/volume] in Serum or Plasma 23.5 mEq /L 21.0 - 32.0 [facility] Glucose [Mass/volume] in Serum or Plasma 247 mg/dL 70 - 100 Above high normal [facility] Urea nitrogen [Mass/volume] in Serum or Plasma 23 mg/dL 7 - 18 Above high normal [facility] CREATININE SERUM 0.96 mg/dL 0.55 - 1.02 [facility] AGE 69 yrs [facility] l eGFR NON-AFR AMR 58 [facility] eGFR AFR AMR >60 [facility] BUN/CREAT 24 6 - 25 [facility] Calcium [Mass/volume] in Serum or Plasma 9.0 mg/dL 8.8 - 10.2 [facility] ANION GAP 14 7 - 15 [facility] Estimated GFR reference r marcos: > 60 mL/min/1.73m >18 years: Calculated using [employer]MS traceable MDRD Study Equation <18 years: Calculated using [employer]MS traceable Bedside Mcdonald Equation ID Date Data Source [id number] 08/08/2019 03:10:00 PM EDT [facility] Name Value Range Interpretation Code Description Data Isatu rce(s) Supporting Document(s) SARS CORONAVIRUS 2 RNA [facility] This lab was ordered by [facility] and reported by [facility]. Procedure Social History Code Duration Value Status Description Data Source(s ) Smoking 03/21/2020 12:00:00 AM EST UNK completed eCW1 ([facility]) Smoking 03/21/2020 12:00:00 AM EST UNK completed eCW1 ([facility]) Smoking 03/07/2020 12:00:00 AM EST UNK completed eCW1 ([facility]) Smoking 03/05/2020 12:00:00 AM EST Patient is a former smoker completed Patient is a former smoker MEDENT ([facility]) Smoking 02/29/2020 12:00:00 AM EST UNK completed eCW1 ([facility]) Smoking 02/27/2020 12:00:00 AM EST UNK completed eCW1 ([facility]) Smoking 02/08/2020 12:00:00 AM EST UNK completed eCW1 ([facility]) Smoking 02/08/2020 12:00:00 AM EST UNK completed eCW1 ([facility]) Smoking 02/08/2020 12:00:00 AM EST UNK completed eCW1 ([facility]) Smoking 02/01/2020 12:00:00 AM EST UNK completed eCW1 ([facility]) Smoking 01/25/2020 12:00:00 AM EST UNK completed eCW1 ([facility]) Smoking 01/18/2020 12:00:00 AM EDT UNK completed eCW1 ([facility]) Vital Signs ID Date Data Source UNK Name Value Range Interpretation Code Description Data Source(s) Body surface area Derived from formula 1.[address] [facility] ([facility], ) Body weight 99.112 kg 99.112 kg [facility] [place] body weight 100 [lb_av] 100 [lb_av] MEDEN T ([facility]) Body mass index (BMI) [Ratio] 44.1 kg/m2 44.1 k g/m2 [facility] ([facility]) Body weight 218.50 [lb_av] 218.50 [lb_av] MEDEN T ([facility]) Body height 59 [in_i] 59 [in_i] MEDENT ([facility], ) 4'11" Diastolic blood pressure 82 mm[Hg] 82 mm[Hg] MEDENT ([facility], ) Systolic blood pressure 174 mm[Hg] 174 mm[Hg] M EDENT ([facility], ) Diastolic blood pressure mm[Hg] eCW1 ([facility]) Systolic blood pressure 128 mm[Hg] 128 mm[Hg] e CW1 ([facility]) Body temperature 97.5 [degF] 97.5 [degF] eCW1 ( [facility]) Respiratory rate 19 /min 19 /min eCW1 ([facility]) Heart rate 78 /min 78 /min eCW1 ([facility]) Body mass index (BMI) [Ratio] 43.45 kg/m2 43.45 kg/m2 eCW1 ([facility]) Body height 59.5 [in_i] 59.5 [in_i] eCW1 ([facility]) Body weight kg eCW1 ([facility]) Body weight 218.8 [lb_av] 218.8 [lb_av] eCW1 ([facility]) Body temperature 96.4 [degF] 96.4 [degF] eCW1 ( [facility]) Respiratory rate 20 /min 20 /min eCW1 ([facility]) Heart rate 75 /min 75 /min eCW1 ([facility]) Body mass index (BMI) [Ratio] 43.45 kg/m2 43.45 kg/m2 eCW1 ([facility]) Body height 59.5 [in_i] 59.5 [in_i] eCW1 ([facility]) Body weight 218.8 [lb_av] 218.8 [lb_av] eCW1 ([facility]) Body height 59 [in_i] 59 [in_i] MEDENT [facility] 4'11" Diastolic blood pressure--sitting 75 mm[Hg] 75 mm[Hg] MEDENT ([facility]) [employer], left forearm (per pateint request ) Systolic blood pressure--sitting 154 mm[Hg] 154 mm[Hg] MEDENT ([facility]) [employer], left forearm (per pateint request ) Heart rate 75 /min 75 /min MEDENT ([facility]) Diastolic blood pressure 84 mm[Hg] 84 mm[Hg] eCW1 ([facility]) Systolic blood pressure 177 mm[Hg] 177 mm[Hg] e CW1 ([facility]) Body temperature 96.6 [degF] 96.6 [degF] eCW1 ( [facility]) Respiratory rate 20 /min 20 /min eCW1 ([facility]) Heart rate 80 /min 80 /min eCW1 ([facility]) Body mass index (BMI) [Ratio] 42.89 kg/m2 42.89 kg/m2 eCW1 ([facility]) Body height 59.5 [in_i] 59.5 [in_i] eCW1 ([facility]) Body weight kg eCW1 ([facility]) Body weight 216 [lb_av] 216 [lb_av] eCW1 ([facility]) Heart rate 70 /min 70 /min eCW1 ([facility]) Body mass index (BMI) [Ratio] 42.89 kg/m2 42.89 kg/m2 W1 ([facility]) Body height 59.5 [in_i] 59.5 [in_i] eCW1 ([facility]) Body weight kg eCW1 ([facility]) Body weight 216 [lb_av] 216 [lb_av] eCW1 ([facility]) Diastolic blood pressure 83 mm[Hg] 83 mm[Hg] eCW1 ([facility]) Systolic blood pressure 145 mm[Hg] 145 mm[Hg] e CW1 ([facility]) Body temperature 97.3 [degF] 97.3 [degF] eCW1 ( [facility]) Respiratory rate 18 /min 18 /min eCW1 ([facility]) Diastolic blood pressure 91 mm[Hg] 91 mm[Hg] eCW1 ([facility]) Systolic blood pressure 218 mm[Hg] 218 mm[Hg] e CW1 ([facility]) Body temperature 98.3 [degF] 98.3 [degF] eCW1 ( [facility]) Respiratory rate 19 /min 19 /min eCW1 ([facility]) Heart rate 84 /min 84 /min eCW1 ([facility]) Body mass index (BMI) [Ratio] 42.89 kg/m2 42.89 kg/m2 eCW1 ([facility]) Body height 59.5 [in_i] 59.5 [in_i] eCW1 ([facility]) Body weight kg eCW1 ([facility]) Body weight 216 [lb_av] 216 [lb_av] eCW1 ([facility]) Diastolic blood pressure 88 mm[Hg] 88 mm[Hg] eCW1 ([facility]) Systolic blood pressure 126 mm[Hg] 126 mm[Hg] e CW1 ([facility]) Body temperature 98.8 [degF] 98.8 [degF] eCW1 ( [facility]) Respiratory rate 18 /min 18 /min eCW1 ([facility]) Heart rate 68 /min 68 /min eCW1 ([facility]) Body mass index (BMI) [Ratio] 42.89 kg/m2 42.89 kg/m2 eCW1 ([facility]) Body height 59.5 [in_i] 59.5 [in_i] eCW1 ([facility]) Body weight kg eCW1 ([facility]) Body weight 216 [lb_av] 216 [lb_av] eCW1 ([facility]) Diastolic blood pressure 70 mm[Hg] 70 mm[Hg] eCW1 ([facility]) Systolic blood pressure 157 mm[Hg] 157 mm[Hg] e CW1 ([facility]) Body temperature 97.4 [degF] 97.4 [degF] eCW1 ( [facility]) Respiratory rate 18 /min 18 /min eCW1 ([facility]) Heart rate 68 /min 68 /min eCW1 ([facility]) Body mass index (BMI) [Ratio] 42.89 kg/m2 42.89 kg/m2 eCW1 ([facility]) Body height 59.5 [in_i] 59.5 [in_i] eCW1 ([facility]) Body weight 216 [lb_av] 216 [lb_av] eCW1 ([facility]) Diastolic blood pressure mm[Hg] eCW1 ([facility]) Systolic blood pressure 130 mm[Hg] 130 mm[Hg] e CW1 ([facility]) Body temperature 95.1 [degF] 95.1 [degF] eCW1 ( [facility]) Respiratory rate 19 /min 19 /min eCW1 ([facility]) Heart rate 87 /min 87 /min eCW1 ([facility]) Body mass index (BMI) [Ratio] 42.89 kg/m2 42.89 kg/m2 eCW1 ([facility]) Body height 59.5 [in_i] 59.5 [in_i] eCW1 ([facility]) Body weight kg eCW1 ([facility]) Body weight 216 [lb_av] 216 [lb_av] eCW1 ([facility]) Body surface area Derived from formula 1.91 m2 1.91 m2 MEDENT ([facility], ) Body weight 98.431 kg 98.431 kg MEDENT ([facility] ) [place] body weight 100 [lb_av] 100 [lb_av] MEDEN T ([facility], ) Body mass index (BMI) [Ratio] 43.8 kg/m2 43.8 k g/m2 MEDENT ([facility], ) Body weight 217.00 [lb_av] 217.00 [lb_av] MEDEN T ([facility], ) Stated Body height 59 [in_i] 59 [in_i] MEDENT ([facility], ) " Diastolic blood pressure 92 mm[Hg] 92 mm[Hg] MEDENT ([facility]) Systolic blood pressure 167 mm[Hg] 167 mm[Hg] M EDENT ([facility]) Body temperature 97 [degF] 97 [degF] eCW1 ([facility]) Respiratory rate 22 /min 22 /min eCW1 ([facility]) Heart rate 80 /min 80 /min eCW1 ([facility]) Body mass index (BMI) [Ratio] 42.89 kg/m2 42.89 kg/m2 eCW1 ([facility]) Body height 59.5 [in_i] 59.5 [in_i] eCW1 ([facility]) Body weight 216 [lb_av] 216 [lb_av] eCW1 ([facility]) Body weight 98.488 kg 98.488 kg MEDENT ([facility], ) [place] body weight 100 [lb_av] 100 [lb_av] MEDEN T ([facility]) Body mass index (BMI) [Ratio] 43.8 kg/m2 43.8 k g/m2 [facility] ([facility]) Body weight 217.12 [lb_av] 217.12 [lb_av] MEDEN T ([facility]) Body height 59 [in_i] 59 [in_i] MEDENT ([facility], ) " Body weight 98.431 kg 98.431 [facility] Body mass index (BMI) [Ratio] 43.8 kg/m2 43.8 k g/m2 [facility] ([facility], ) Body weight 217.00 [lb_av] 217.00 [lb_av] MEDEN T ([facility]) stated wheelchair Body height 59 [in_i] 59 [in_i] MEDENT ([facility], ) " Diastolic blood pressure 82 mm[Hg] 82 mm[Hg] MEDENT ([facility]) Systolic blood pressure 118 mm[Hg] 118 mm[Hg] Shane KWAN ([facility], )
[2020-04-11] MEDS ORDERED: propofoL 200 MG/20 ML VIAL As Ordered ONE (16:03)
[2020-04-11] MEDS ORDERED: dexameTHASONE 4 MG/ML 1ML VIAL (J1100 PER 1MG) As Ordered ONE (16:03)
[2020-04-11] MEDS ORDERED: fentaNYL 100 MCG/2 ML INJECTION (J3010) As Ordered ONE (16:03)
[2020-04-11] MEDS ORDERED: MIDAZOLAM INJ 2MG/2ML VIAL (J2250 PER 1MG) As Ordered ONE (16:03)
[2020-04-11] MEDS ORDERED: LIDOCAINE 2% JELLY 5ML TUBE As Ordered ONE (16:03)
[2020-04-11] MEDS ORDERED: ROCURONIUM BROMIDE 50 MG/5 ML VIAL As Ordered ONE (16:03)
[2020-04-11] MEDS ORDERED: ONDANSETRON 4MG/2ML VIAL As Ordered ONE (16:03)
[2020-04-11] MEDS ORDERED: SUGAMMADEX SODIUM 500 MG/5 ML VIAL (BRIDION) As Ordered ONE (16:03)
[2020-04-11] MEDS ORDERED: LIDOCAINE 2% 100MG/5ML SDV (FOR ANES.) As Ordered ONE (16:06)
--- NOTE | 2020-04-11 16:17 | CR.PDOC ---
General Date of Consultation: Apr 11, 2020 Consultation REASON FOR CONSULTATION/CHIEF COMPLAINT: Poor healing left groin incision s/p L fempop bypass 03/25/20. HISTORY OF PRESENT ILLNESS: This is a very pleasant 69-year-old patient with a history of severe peripheral vascular disease and history of right AKA 2006. She has known to have a history of prior stroke with right-sided hemiparesis and dysarthria. She does have difficulty getting her words out at times, but is alert and oriented x3, provides history for herself, consents for herself and is able to communicate fairly well as long as she is not rushed. She is status post left lower extremity angiogram 01/09/20, no endovascular option for revascul arization of her left femoral and SFA occlusion, so it was discussed with the patient that we offer left common femoral endarterectomy and left femoral to above-knee popliteal bypass. We had an extensive discussion about the risks of the procedure for her, since she is morbidly obese with a large pannus and very fragile skin, and diabetic. I did not think there would be a problem doing the bypass, but I was worried that we would have trouble healing her groin and thigh incision postop. The patient felt strongly that she wanted to proceed with bypass because she was very worried about having a contralateral amputation. I gave her a precaution for the difficulties we could have postop with healing, but she was more than agreeable to proceed knowing the risks. She is status post left common femoral endarterectomy and left femoral to above-knee popliteal bypass with PTFE graft 03/25/20. Postoperatively unfortunately, the patient was discharged without notification to the vascular service, and had no dressing instructions for the long-term. We spoke with several nurses and faxed over multiple orders, but the patient was then seen in clinic a week later and informed my PA that she had only had one or 2 dressing changes. Her ability to heal the groin incision was very tenuous to begin with, but without any dressing changes, her skin was macerated, erythematous, cellulitic and she had signifi cant fibrinous exudate at the carolyn. Her dressing in clinic was noted to be saturated with serous fluid and the patient said it had been several days since they changed it. We were disappointed to see this, as she had actually been healing quite well postop prior to discharge. The patient was then admitted to [facility] from 04/02/20 to 04/09/20 for treatment of poor groin incision healing, infection of the incision, cellulitis. This was felt to be multifactorial including morbid obesity and a large pannus with trapping of moisture due to her dependence and the weight of her pannus, as well as limited wound care at the long-term. This improved with IV antibiotics, she was transitioned to oral antibiotics, oral doxycycline for Klebsiella and enterococcus sensitivities, and discharged back to the long-term on 04/09/20. It was explained to the patient as that if her graft gets infected, she would need a removal of the graft and likely will be at risk to lose her leg. However, doing her groin excisional debridement would not be simple in this patient. For one thing, she has extremely fragile skin and changing a wound VAC dressing 3 times a week or changing wet-to-dry dressings twice a day would likely significantly excoriate the skin around her groin incision, possibly making her situation even more challenging. Also, by opening the scan, we increased the risk that she could infect her graft thus we lose all the benefits of the effort that we've put forth to save her leg. After extensive counseling, the patient did not want skin debridement or anything done surgically at that time. She said she was tired and did not want any further surgical intervention and she wanted to try dressing changes alone first. I did financial aid counselor her that one of the problems was that we were getting consistent dressing changes at the long-term, but she said that she would be more vocal about making sure they did the dressings. On the day of discharge, her incision looked better due to excellent twice daily wound care while inpatient and pillowcases being placed in the groin fall to prevent moisture buildup. The erythema was almost gone, the skin had dramatically improved, and although there still was fibrinous exudate at the carolyn, the incision was not dehisced and the medial and lateral edges had started to epithelialize. My hope was with good wound care, her groin could heal from the edges in, but this was certainly risky due to inconsistent wound care at the long-term. It was recommended to continue with twice daily dressing changes with dry dressing changes to the left groin and left medial thigh. It was recommended the incision should be thoroughly cleaned and dried, the carolyn wiped with an alcohol prep pad, dry gauze placed in the groin. We also gave instructions to keep a pillowcase or intra-dry over this in the groin fold to prevent moisture buildup. If possible, avoid fastening her depend on the left side to minimize trapping fluid. Also they were instructed to continue with local wound care on the left pretibial ulcers per the orders they were following preop. Per the patient, these orders were not followed. She did not receive twice daily wound care, but did have one dressing change the night she return to the long-term. The patient said they did not put any fabric or pillowcase in her groin fold to prevent moisture. We asked that the patient come to clinic today this afternoon for evaluation. Although it's only been 2 days since her discharge from the hospital, there is already increased separation in the central portion of the incision. Without careful wound care, there is no chance that this will heal. Unfortunately, even with the surgical debridement, there is no guarantee that this will heal due to her fragile skin, poor tissue and fascia quality, morbid obesity, propensity for infection, diabetes. However, we are between a rock and a hard place because we cannot count on consistent wound care at the long-term. Even if she had consistent wound care, there is no guarantee it would heal at this point, but it looked so much better after weak of twice a day wound care in the hospital, so I was hopeful. Therefore, I spoke with the patient again today about possibly doing a debridement in the left groin. I was very careful to make sure she understood that this is not a simple procedure for her. She still could end up infecting and losing her graft. She still could end up with months of wound care trying to heal the groin. Unfortunately, now that we are in this situation, we have to do something to try to salvage the bypass. She is a little bit tearful at the thought of more surgery and is very tired. I tried my best to reassure her. I am hopeful that this will be successful, but I can already see multiple potential problems postop. I've spoken with the hospitalist team and they are kind enough to help us direct admit her. My big concern is that I don't have an option to keep the patient in the hospital as long as I would like to make sure that we get a good handle on healing, and that I cannot count on her having proper wound care at the long-term, whether that be wet-to-dry dressings, dry dressings, or wound VAC. This is extremely troubling to me, and troubling to the patient. She is very worried about the fate of her leg, as am I. I will take new cultures Intra-Op to make sure there is no ongoing infection, but we will continue oral doxycycline for now. Risks benefits and alternatives to a left groin excisional debridement, possible wound VAC, possible closure were explained to the patient. She is agreeable to proceed. Informed consent was obtained. ALLERGIES: Please see below. HOME MEDICATIONS: Please see below. PAST MEDICAL HISTORY: HTN, HLD, anxiety, depression, CAD, CVA, CRI, AF, GERD PAST SURGICAL HISTORY: Right knee surgery, right AKA, left carotid endarterectomy, left femoral endarterectomy and left femoropopliteal bypass [id number] FAMILY HISTORY: Father due to heart attack SOCIAL HISTORY: Patient is a former smoker, 40 pack years, quit 2005. Denies tobacco alcohol illicit drug use currently. Resides in a long-term. REVIEW OF SYSTEMS: CONSTITUTIONAL: Denies fevers or chills. Positive malaise HEENT: Denies hearing loss or vision changes. Positive speech difficulty status post stroke, chronic CARDIOVASCULAR: Denies chest pain, positive palpitations RESPIRATORY: Denies shortness of breath cough GENITOURINARY: Denies dysuria MUSCULOSKELETAL: Positive wounds left leg. Positive history right AKA GASTROINTESTINAL: Positive for reflux denies nausea vomiting SKIN: Positive wounds left lower extremity NEUROLOGICAL: History of stroke denies headaches or seizures PSYCHIATRIC: History of anxiety and depression ENDOCRINE: History of diabetes HEMATOLOGIC/LYMPHATIC: Denies anemia ALLERGIC/IMMUNOLOGIC: Denies PHYSICAL EXAMINATION: VITAL SIGNS: Please see below. GENERAL APPEARANCE: Medically stable no acute distress HEENT: Vision grossly intact, TMI RESPIRATORY: Clear to auscultation CARDIOVASCULAR: Rhythm irregular, no murmurs ABDOMEN: Soft obese nontender EXTREMITIES: Patient is no wheelchair, history of right leg amputation, left groin incision has mild surrounding erythema, fibrinous exudate with some separation at the central portion, minimal serous drainage noted. Left thigh incision is tight with swelling from her leg being in a dependent position in the wheelchair, there is some blistering on the scan consistent with severe edema, but the carolyn are intact. Her dressing is the dressing I put on in the hospital. The dressings on her pretibial calf have not been changed either. We will address these in the operating room and redressed them appropriately since her skin is so sensitive and every dressing changes very painful for her. NEUROLOGICAL: Alert and oriented, residual right arm weakness, chronic, residual speech deficit, chronic PSYCHIATRIC: Pleasant and cooperative LABORATORY DATA: Please see below. ASSESSMENT/PLAN: This is a very pleasant 70-year-old patient, severe end-stage peripheral vascular disease now status post a left femoropopliteal bypass with challenges to heal her left groin incision due to morbid obesity, diabetes, poor tissue quality, poor skin integrity, large pannus, and inconsistent wound care at the long-term. 1. We will admit the patient today the hospitalist service. We will proceed with excisional debridement of the fibrinous exudate and nonviable tissue at the left groin. Depending on what defect this leaves, we will decide on options including closure, wet-to-dry dressings, wound VAC. 2. Continue oral doxycycline for now. New cultures will be taken in the OR. We'll follow those in the sensitivities and treat appropriately. We will be fairly aggressive with antibiotics if indicated due to the risk of graft infection, which would necessitate removal of the graft and likely result in eventual limb loss. We appreciate the opportunity to purchase patent care of this patient. Allergies Coded Allergies: Penicillins (Verified Allergy, Intermediate, mouth swelling, 03/11/20) Home Medications Scheduled Acetaminophen (Mapap) 500 Mg Tablet, 1,000 MG PO QHS, (Reported) Allopurinol (Allopurinol) 100 Mg Tablet, 100 MG PO DAILY, (Reported) Aspirin (Aspirin) 81 Mg Tab.chew, 81 MG PO DAILY, (Reported) Cholecalciferol (Vitamin D3) (Vitamin D3) 1,000 Unit Tablet, 1,000 UNITS PO D AILY, (Reported) Doxycycline Monohydrate (Doxycycline) 100 Mg Capsule, 1 CAP PO BID for 10 Days, #20 Ferrous Sulfate (Iron) 325 Mg Tablet, 325 MG PO DAILY, (Reported) Furosemide (Furosemide) 40 Mg Tab, 40 MG PO DAILY, (Reported) Icosapent Ethyl (Vascepa) 1 Gm Capsule, 2 GM PO BID, (Reported) Insulin Detemir (Levemir) 100 Unit/1 Ml Vial, 20 UNITS SC QAM, (Reported) Latanoprost (Xalatan) 0.005% 2.5ML Drops, 1 DROP OU QHS, (Reported) Metformin HCl (Metformin HCl) 500 Mg Tablet, 500 MG PO BID, (Reported) Metoprolol Tartrate (Metoprolol Tartrate) 50 Mg Tablet, 50 MG PO DAILY, (Reported) Miconazole Nitrate (Anti-Fungal Powder) 71 Gm Powder, 1 DOSE TOP BID, (Reported) APPLY TO ABDOMINAL FOLD Omeprazole (Omeprazole) 20 Mg Capsule.dr, 20 MG PO DAILY, (Reported) Rivaroxaban (Xarelto) 20 Mg Tablet, 20 MG PO DAILY, (Reported) Ropinirole HCl (Ropinirole HCl) 0.25 Mg Tab, 0.25 MG PO DAILY, (Reported) Rosuvastatin Calcium (Crestor) 20 Mg Tab, 20 MG PO QHS, (Reported) Senna (Senna Lax) 8.6 Mg Tablet, 17.2 MG PO QHS, (Reported) Sertraline HCl (Sertraline HCl) 50 Mg Tablet, 50 MG PO QHS, (Reported) Sitagliptin (Januvia) 50 Mg Tablet, 50 MG PO DAILY, (Reported) Scheduled PRN Acetaminophen (Acetaminophen) 325 Mg Tablet, 650 MG PO Q4H PRN for PAIN / FEVER, (Reported) Bisacodyl (Bisacodyl) 10 Mg Supp.rect, 10 MG GA DAILY PRN for CONSTIPATION, (Reported) Magnesium Hydroxide (Milk of Magnesia) 400 Mg/5 Ml Oral.susp, 30 ML PO DAILY PRN for CONSTIPATION, (Reported) Oxycodone HCl/Acetaminophen (Percocet 5-325 mg Tablet) 1 Each Tablet, 1 TAB PO Q4H PRN for PAIN, (Reported) Sodium Phosphate,[place]ombs-Dibasic (Enema) 133 Ml Enema, 1 OSMANY GA DAILY PRN for CONSTIPATION, (Reported) glucagon HCL (glucagon HCL) 1 Mg/1 Ml Vial, 1 MG IM PRN PRN for LOW BLOOD SUGAR, (Reported) VINEET OLIVO MD Apr 11, 2020 16:17
--- NOTE | 2020-04-11 16:28 | HPEPDOC ---
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 She underwent a L common femoral endarterectomy with xenosure patch angioplasty L femora above knee popliteal artery artery bypass with ringed PTFE. She was readmitted for developed cellulitis of L groin which was treated with IV abx and she was subsequently discharged to [facility] on PO doxycycline. Unfortunately, lapse in dressing changes resulted in poor wound healing. patient was seen today in clinic by Dr. Bernardo, and exam revealed extenive firbunous exhudate and brittle skin which wound make a wound vac a poor option. Ater length discussion, patient opted for debridement. Patient will be directly admitted from clinic and taken to OR this afternoon. PAST MEDICAL HISTORY: Non healing left urrutia medially due to venous stasis Morbid obesity Chronic atrial fibrillation PAD s/p right above knee amputation amputation after failed angioplasties and bypass. 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 S/p partial nephrectomy Lung nodule stable since 2012. Gout GERD depression Constipation Diverticulosis RLS PAST SURGICAL HISTORY: Bilateral lower extremity angioplasties RIGHT FEMORAL TIBIAL ARTERY BYPASS 08/2016 Left CAROTID ENDARTERECTOMY Right varicose vein stripping. Right AKA SOCIAL HISTORY: Former smoker Patient denies etoh use Patient denies illicit drug use FAMILY HISTORY: I personally reviewed family history the patient and found to be nonpertinent ALLERGIES: Please see below. REVIEW OF SYSTEMS: CONSTITUTIONAL: patient denies fevers, chills HEENT: patient denies blurred vision, loss of vision, headache,. CARDIOVASCULAR: patient denies chest pain, palpitations. RESPIRATORY: patient denies shortness of breath, cough, hemoptysis. GASTROINTESTINAL: patient denies abdominal pain, n/v/d, blood in stool. GENITOURINARY: patient denies dysuria, discharge. SKIN: patient denies rashes. MUSCULOSKELETAL: L groin pain. NEUROLOGICAL: patient denies focal weakness, numbness, seizures. PSYCHIATRIC: patient denies SI/HI. ENDOCRINE: patient denies polyuria, heat intolerance, cold intolerance. HEMATOLOGIC/LYMPHATIC: patient denies easy bruising. HOME MEDICATIONS: Please see below. PHYSICAL EXAMINATION: VITAL SIGNS: please see below General: NAD, comfortable HEENT: PERRLA, EOMI, sclerae clear Neck: supple, normal ROM, no JVD Respiratory: lungs CTAB, no wheeze, no rales, no crackles CVS: RRR, normal S1, S2, no murmurs Abdo: soft, no masses, no hepatosplenomegaly, BS+, no rebound tenderness Extremities: no edema, pulses 2+ MSK: no joint deformities, normal ROM Neuro: no focal neuro deficits, moving all 4 extremities, CN2-12 intact. Strength 5/5 in all 4 extremities. No nystagmus. Psych: calm, cooperative, AAO x 3 LABORATORY DATA: See below. MICROBIOLOGY: Please see below. 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 . PLAN: #Non healing L groind wound s/p cellulitis of incision site, s/p L fempop bypass with PTFE and L femora endarterecotmy - OR was on 03/25/20 - persistent issues with wound healing, issues with wound care - due to significantly macerated and brittle skin, wound vac not an option - d/w in detail with Dr. Bernardo. Patient planned for wound debridement, which carries with it risk of poor and prolonged healing. patient is aware of risks - NPO. Hold lovenox. Hold xarelto at this time until cleared to resume by Dr. Bernardo after OR. #hx of CVA, residual hemiparesis - aspiration precautions - c/w ASA, statin - neuro follow up outpatient #Chronic afib - will hold xarelto until safe to resume after OR, will clear with Dr. Bernardo - HR controlled #HTN - resume home meds #PVD - chrornic, s/p R AKA - vascular surgery consulted, Dr. Bernardo - ASA, statin #Diabetes Mellitus - FSBS, ISS - hypoglycemic precautions DVT ppx: SCDs, TEDs Home Medications Scheduled Acetaminophen (Mapap) 500 Mg Tablet, 1,000 MG PO QHS Allopurinol (Allopurinol) 100 Mg Tablet, 100 MG PO DAILY Aspirin (Aspirin) 81 Mg Tab.chew, 81 MG PO DAILY Cholecalciferol (Vitamin D3) (Vitamin D3) 1,000 Unit Tablet, 1,000 UNITS PO DAILY Doxycycline Monohydrate (Doxycycline) 100 Mg Capsule, 1 CAP PO BID Ferrous Sulfate (Iron) 325 Mg Tablet, 325 MG PO DAILY Furosemide (Furosemide) 40 Mg Tab, 40 MG PO DAILY Icosapent Ethyl (Vascepa) 1 Gm Capsule, 2 GM PO BID Insulin Detemir (Levemir) 100 Unit/1 Ml Vial, 20 UNITS SC QAM Latanoprost (Xalatan) 0.005% 2.5ML Drops, 1 DROP OU QHS Metformin HCl (Metformin HCl) 500 Mg Tablet, 500 MG PO BID Metoprolol Tartrate (Metoprolol Tartrate) 50 Mg Tablet, 50 MG PO DAILY Miconazole Nitrate (Anti-Fungal Powder) 71 Gm Powder, 1 DOSE TOP BID APPLY TO ABDOMINAL FOLD Omeprazole (Omeprazole) 20 Mg Capsule.dr, 20 MG PO DAILY Rivaroxaban (Xarelto) 20 Mg Tablet, 20 MG PO DAILY Ropinirole HCl (Ropinirole HCl) 0.25 Mg Tab, 0.25 MG PO DAILY Rosuvastatin Calcium (Crestor) 20 Mg Tab, 20 MG PO QHS Senna (Senna Lax) 8.6 Mg Tablet, 17.2 MG PO QHS Sertraline HCl (Sertraline HCl) 50 Mg Tablet, 50 MG PO QHS Sitagliptin (Januvia) 50 Mg Tablet, 50 MG PO DAILY Scheduled PRN Acetaminophen (Acetaminophen) 325 Mg Tablet, 650 MG PO Q4H PRN for PAIN / FEVER Bisacodyl (Bisacodyl) 10 Mg Supp.rect, 10 MG PA DAILY PRN for CONSTIPATION Magnesium Hydroxide (Milk of Magnesia) 400 Mg/5 Ml Oral.susp, 30 ML PO DAILY PRN for CONSTIPATION Oxycodone HCl/Acetaminophen (Percocet 5-325 mg Tablet) 1 Each Tablet, 1 TAB PO Q4H PRN for PAIN Sodium Phosphate,[place]ard-Dibasic (Enema) 133 Ml Enema, 1 OSMANY PA DAILY PRN for CONSTIPATION glucagon HCL (glucagon HCL) 1 Mg/1 Ml Vial, 1 MG IM PRN PRN for LOW BLOOD SUGAR Allergies Coded Allergies: Penicillins (Verified Allergy, Intermediate, mouth swelling, 03/11/20) ЮЛИЯ STILL MD Apr 11, 2020 16:28
[2020-04-11] MEDS ORDERED: VANCOMYCIN 1000MG/20ML VIAL As Ordered ONE (16:32)
[2020-04-11] MEDS ORDERED: DIMETHYL SULFOXIDE As Ordered ONE (16:39)
[2020-04-11] MEDS ORDERED: GLUCOSE 4GM CHEW TABLET PO PRN (16:45)
[2020-04-11] MEDS ORDERED: GLUCAGON INJ 1MG VIAL SC PRN (16:45)
[2020-04-11] MEDS ORDERED: DEXTROSE 50% 50 ML SYRINGE IV PRN (16:45)
[2020-04-11] MEDS ORDERED: DAKIN'S 0.25% HALF-STRENGTH SOLN 480 ML TOP ONE (17:15)
[2020-04-11] MEDS ORDERED: VASOPRESSIN INJ 20 UNITS/ML VIAL As Ordered ONE (17:19)
[2020-04-11] MEDS ORDERED: GLYCOPYRROLATE INJ 0.2 MG/ML 2 ML VIAL As Ordered ONE (17:25)
[2020-04-11] MEDS: HumaLOG INSULIN (NovoLOG) PER UNIT SC SCH ×2 (17:30→20:31)
[2020-04-11] MEDS ORDERED: DOXY100T2 PO (17:33)
[2020-04-11] MEDS ORDERED: LABETALOL 100MG/20ML VIAL As Ordered ONE (18:01)
--- NOTE | 2020-04-11 18:08 | ROOPDOC ---
[facility] Report Of Operation Report of Operation DATE OF PROCEDURE: 04/11/20 PREPROCEDURE DIAGNOSES: Poor healing and superficial dehiscence left groin incision status post left femoropopliteal bypass POSTPROCEDURE DIAGNOSES: Same. PROCEDURE: 1. Excisional debridement skin, subcutaneous tissue, 23.5 cm 2. Partial closure incision, 5 cm medial aspect POST DEBRIDEMENT MEASUREMENTS LEFT GROIN: Length 2.3 cm x width 10.2 cm x depth 1.6 cm SURGEON: Vineet Bernardo MD ANESTHESIA: Gen. anesthesia INDICATION FOR PROCEDURE: This is a very pleasant 70-year-old patient well known to the vascular service status post a left femoral endarterectomy with patch angioplasty and left femoropopliteal bypass [id number] with PTFE on 06/2020. Subsequently the patient has had difficulty with wound healing the left groin, multifactorial, likely due to morbid obesity, poor skin integrity and tissue quality, infection, diabetes, inconsistent wound care at the skilled nursing, and protein malnutrition. Risks benefits alternatives to an excisional debridement and possible wound VAC possible closure possible wet-to-dry d ressings were explained to the patient and she is agreeable to proceed. Informed consent was obtained. REPORT OF OPERATION: The patient was brought to the OR in stable condition. General anesthesia and antibiotics were administered without complication. Her left groin was prepped and draped in a sterile fashion. A timeout was performed. The carolyn were removed at the groin. The fibrinous exudate was sharply excised along with the skin edges and a curette was used to remove nonviable subcutaneous tissue. The nonhealing portion of the incision seems to be very superficial. There is no large fluid cavity, the sutures at the fascia are still intact, no abscess or fluctuance noted. Cultures were taken and sent for microbiology after debridement. We then irrigated with copious amounts of Dakin solution. The tissue appears viable and not grossly necrotic or infected. The lateral aspect of the incision has loose adipose tissue, no significant fashion to close at this point, so this was left open to close by secondary intent. The medial portion however the fascia appeared somewhat more suitable, thus we closed the medial aspect with interrupted Vicryl sutures and then approximated the skin edges with nylon mattress sutures. If this does not heal suitably, we can easily remove the sutures at the bedside. The lateral aspect was loosely packed with Dakin's damp to dry dressing. We then thoroughly cleaned the skin around the groin and use paper tape to secure the dressing. A soft pillow case was placed in the groin folds to prevent build-up of moisture. The patient's left lower extremity thigh incision was cleaned thoroughly and dressed with gauze and loosely wrapped with Kerlix to prevent tape on the skin. The pretibial ulcers are clean dry and intact and dressings appear clean. These were not replaced. The patient was allowed to awaken from anesthesia and taken to recovery in stable condition. She tolerated the procedure well. ESTIMATED BLOOD LOSS: Approximately 5 mL. COMPLICATIONS: None. SPECIMEN: Cultures were sent for microbiology PLAN: We will follow the cultures closely, and change the oral antibiotics IV antibiotics as needed. We will continue with local dressing changes. Ideally, we would do wound VAC dressing to left groin, but I believe the patient's skin is too fragile for 3 times a week dressing changes with the wound VAC, but we will reconsider this depending on her healing over the next week. We will elevate the left leg to help with swelling. It is extremely swollen, and there are some blisters on the inferior aspect of thigh incision due to severe swelling. The patient has venous insufficiency with pretibial ulcers, and local wound care will be provided for these as well. They're almost healed. We will continue to encourage high-protein diet to help with wound healing. The patient has been extensively counseled and is agreeable with this plan. We appreciate the opportunity to participate in the care of this patient. VINEET BERNARDO MD Apr 11, 2020 18:08
[2020-04-11] MEDS: LABETALOL 100MG/20ML VIAL IV SCH ×5 (18:10→19:05)
[2020-04-11] MEDS ORDERED: fentaNYL 100 MCG/2 ML INJECTION (J3010) IV PRN (18:45)
[2020-04-11] MEDS ORDERED: ONDANSETRON 4MG/2ML VIAL IV PRN (18:45)
[2020-04-11] MEDS ORDERED: METOCLOPRAMIDE INJ 10MG/2ML VIAL (J2765 PER 1) IV PRN (18:45)
[2020-04-11] MEDS ORDERED: LR 1,000 ML IV SCH (18:45)
[2020-04-11] MEDS ORDERED: DAKIN'S 0.25% HALF-STRENGTH SOLN 480 ML TOP PRN (18:45)
[2020-04-11 18:57] LABS: BASO % 0.4 % (0.0-1.0); EOS # 0.1 10^3/uL (0.0-0.5); HEMATOCRIT 35.6 % (36.0-47.0); HEMOGLOBIN 10.1 g/dl (12.0-15.5); LYMPH # 1.3 10^3/uL (1.5-5.0); LYMPH % 11.2 % (24.0-44.0); MEAN CORPUSCULAR HEMOGLOBIN 25.8 pg (27.0-33.0); MEAN CORPUSCULAR HGB CONC 28.4 g/dl (32.0-36.5); MONO # 0.4 10^3/uL (0.0-0.8); MONO % 3.9 % (0.0-5.0); NEUTROPHILS # 9.4 10^3/uL (1.5-8.5); NEUTROPHILS % 82.9 % (36.0-66.0); PLATELET COUNT, AUTOMATED 363 10^3/uL (150-450); RED BLOOD COUNT 3.91 10^6/uL (4.00-5.40); WHITE BLOOD COUNT 11.4 10^3/uL (4.0-10.0)
[2020-04-11 19:05] VITALS: BP 129/84
[2020-04-11 19:21] LABS: ALBUMIN 2.9 GM/DL (3.2-5.2); BILIRUBIN,TOTAL 0.3 MG/DL (0.2-1.0); CREATININE FOR GFR 1.11 MG/DL (0.55-1.30); MAGNESIUM LEVEL 1.4 MG/DL (1.8-2.4); POTASSIUM SERUM 4.1 MEQ/L (3.5-5.1)
[2020-04-11 19:30] VITALS: BP 161/94
[2020-04-11] MEDS: DOXYCYCLINE HYCLATE 100MG TABLET PO SCH (19:35)
[2020-04-11 20:00] VITALS: BP_SYST 144
[2020-04-11 21:00] VITALS: BP 157/65
[2020-04-11] MEDS: DOCUSATE SODIUM 100MG CAPSULE PO SCH (21:00)
[2020-04-11 22:00] VITALS: BP 147/70
[2020-04-11 23:59] VITALS: BP 143/72
[2020-04-12] VITALS: BP 156/82
[2020-04-12 02:00] VITALS: BP 154/88
[2020-04-12 06:00] VITALS: BP 149/78
[2020-04-12 06:31] LABS: BASO % 0.5 % (0.0-1.0); HEMATOCRIT 32.7 % (36.0-47.0); HEMOGLOBIN 9.7 g/dl (12.0-15.5); LYMPH % 12.4 % (24.0-44.0); MEAN CORPUSCULAR HEMOGLOBIN 25.9 pg (27.0-33.0); MEAN CORPUSCULAR HGB CONC 29.7 g/dl (32.0-36.5); MEAN CORPUSCULAR VOLUME 87.4 fl (80.0-96.0); MONO # 0.4 10^3/uL (0.0-0.8); MONO % 4.6 % (0.0-5.0); NEUTROPHILS # 6.5 10^3/uL (1.5-8.5); PLATELET COUNT, AUTOMATED 386 10^3/uL (150-450); RED BLOOD COUNT 3.74 10^6/uL (4.00-5.40); WHITE BLOOD COUNT 7.9 10^3/uL (4.0-10.0)
[2020-04-12 07:01] LABS: ALBUMIN 2.9 GM/DL (3.2-5.2); BILIRUBIN,TOTAL 0.5 MG/DL (0.2-1.0); CREATININE FOR GFR 1.03 MG/DL (0.55-1.30); GLOMERULAR FILTRATION RATE 56.7 (>45); MAGNESIUM LEVEL 1.7 MG/DL (1.8-2.4); POTASSIUM SERUM 4.6 MEQ/L (3.5-5.1); TOTAL PROTEIN 6.6 GM/DL (6.4-8.2)
[2020-04-12] MEDS: DOCUSATE SODIUM 100MG CAPSULE PO SCH ×2 (08:37→21:00)
[2020-04-12] MEDS: DOXYCYCLINE HYCLATE 100MG TABLET PO SCH ×2 (08:37→22:00)
[2020-04-12] MEDS: HumaLOG INSULIN (NovoLOG) PER UNIT SC SCH ×4 (08:38→21:00)
[2020-04-12] MEDS ORDERED: MAG SULF 1GM/100ML (MAG RUN) 1 GM in IV 1 EA IV ONE (09:00)
--- NOTE | 2020-04-12 10:43 | IPNPDOC ---
Text Note Date of Service The patient was seen on 04/12/20. NOTE Vascular surgery. Dr. Bernardo This is a very pleasant 69-year-old patient with a history of severe peripheral vascular disease and history of right AKA 2006. She has known to have a history of prior stroke with right-sided hemiparesis and dysarthria. She does have difficulty getting her words out at times, but is alert and oriented x3, provides history for herself, consents for herself and is able to communicate fairly well as long as she is not rushed. She is status post left lower extremity angiogram 01/09/20, no endovascular option for revascularization of her left femoral and SFA occlusion, so it was discussed with the patient that we offer left common femoral endarterectomy and left femoral to above-knee popliteal bypass. She is status post left common femoral endarterectomy and left femoral to above-knee popliteal bypass with PTFE graft 03/25/20. Readmitted related to poor healing left groin incision s/p L fempop bypass 03/25/20. Status post excisional debridement and partial closure incision 04/11/[address] Bernardo. The patient is examined with Dr. Bernardo this morning. Plan to closely follow the patient's wound. The patient's incision was thoroughly cleaned, dressing was changed with damp to dry Dakin's dressing, dry gauze, and pillowca se in the groin fold to help prevent buildup of moisture. Pretibial ulcers appear clean. Dressings in place. The patient remains on oral doxycycline. Encourage the patient to consume protein to help with healing. Continue to elevate lower extremity as the patient also has venous insufficiency contributing to the pretibial ulcers as well. The base of her bed was elevated to help with this. Will possibly consider placing Unna boot left lower extremity. Continue to closely follow. Addendum. 1310 PM 04/12/20. The patient's lower extremity pretibial wounds were further examined as per Dr. Bernardo. On the medial aspect the patient did have epifix applied however it appeared the patient was last seen at wound care 03/21/20 likely related to her last couple of admissions I believe she missed some appointments. This was removed, the area was thoroughly cleaned. Foam dressing was removed from the lateral pretibial wound. Both of them appear to be healing and becoming smaller. Unna boot was applied to the left lower extremity extending up over the left thigh incision. The patient tolerated well and states her left leg feels comfortable at this time. Her left lower extremity is elevated on a pillow, the base of the bed remains elevated as well. Continue with elevation of the left lower extremity. Continue to closely monitor. VS,Fishbone, I+O VS, Fishbone, I+O Laboratory Tests 04/11/20 18:45 04/12/20 06:04 Vital Signs Date Time Temp Pulse Resp B/P (MAP) Pulse Ox O2 Delivery O2 Flow Rate FiO2 04/12/20 06:00 97.4 89 17 149/78 (101) 98 Room Air 04/11/20 18:30 3 I&O- Last 24 Hours up to 6 AM 04/12/20 05:59 Intake Total 400 ml Balance 400 ml Renetta Pantoja Apr 12, 2020 10:43
--- NOTE | 2020-04-12 11:09 | IPNPDOC ---
Date Seen The patient was seen on 04/12/20. Progress Note SUBJECTIVE: c/o paresthesias left leg from foot to groin. no fever no purulent drainage overnight. on doxycycline. OBJECTIVE PHYSICAL EXAMINATION: VITAL SIGNS: Please see below. General: NAD, no pallor. no use of resp acc mm. aao x 3comfortable HEENT: PERRLA, EOMI, sclerae clear Neck: supple, normal ROM, no JVD Respiratory: lungs CTAB, no wheeze, no rales, no crackles CVS: RRR, normal S1, S2, no murmurs Abdo: soft, no masses, no hepatosplenomegaly, BS+, no rebound tenderness Extremities: no edema, pulses 2+ MSK: no joint deformities, normal ROM Neuro: no focal neuro deficits, moving all 4 extremities, CN2-12 intact. Strength 5/5 in all 4 extremities. No nystagmus. Psych: calm, cooperative, AAO x 3 LABORATORY DATA, IMAGING STUDIES, MICROBIOLOGY: Please see below. ASSESSMENT AND PLAN: 69 y/o F w h/o cva, PAD, status post left lower extremity angiogram 01/09/20, no endovascular option for revascularization of her left femoral and SFA occlusion, so it was discussed with the patient that we offer left common femoral endarterectomy and left femoral to above-knee popliteal bypass. She is status post left common femoral endarterectomy and left femoral to above-knee popliteal bypass with PTFE graft 03/25/20. Readmitted related to poor healing left groin incision s/p L fempop bypass 03/25/20. Status post excisional debridement and partial closure incision 04/11/[address] Kelsie bourne. Left groin cellulitis Non healing left urrutia medially due to venous stasis Morbid obesity Chronic atrial fibrillation PAD s/p right above knee amputation amputation after failed angioplasties and bypass. 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 S/p partial nephrectomy Lung nodule stable since 2012. Gout GERD depression Constipation Diverticulosis RLS PLAN: - status post left lower extremity angiogram 01/09/20, no endovascular option for revascularization of her left femoral and SFA occlusion, so it was discussed with the patient that we offer left common femoral endarterectomy and left femoral to above-knee popliteal bypass. She is status post left common femoral endarterectomy and left femoral to above-knee popliteal bypass with PTFE graft 03/25/20. Readmitted related to poor healing left groin incision s/p L fempop bypass 03/25/20. Status post excisional debridement and partial closure incision 04/11/[address] Bernardo. -on po doxycycline. wound care, activity, pain mgt per vascular surgery. VS, I&O, 24H, Fishbone Vital Signs/I&O Vital Signs Date Time Temp Pulse Resp B/P (MAP) Pulse Ox O2 Delivery O2 Flow Rate FiO2 04/12/20 06:00 97.4 89 17 149/78 (101) 98 Room Air 04/11/20 18:30 3 I&O- Last 24 Hours up to 6 AM 04/12/20 06:00 Intake Total 700 ml Balance 700 ml Laboratory Data 24H LABS Laboratory Tests 2 04/11/20 16:43: Bedside Glucose (Misc Panel) 136H 04/11/20 18:26: Bedside Glucose (Misc Panel) 212H 04/11/20 18:45: Immature Granulocyte % (Auto) 0.6, Neutrophils (%) (Auto) 82.9H, Lymphocytes (%) (Auto) 11.2L, Monocytes (%) (Auto) 3.9, Eosinophils (%) (Auto) 1.0, Basophils (%) (Auto) 0.4, Neutrophils # (Auto) 9.4H, Lymphocytes # (Auto) 1.3L, Monocytes # (Auto) 0.4, Eosinophils # (Auto) 0.1, Basophils # (Auto) 0.0, Nucleated Red Blood Cells % (auto) 0.0, Anion Gap 11, Glomerular Filtration Rate 52.0, Calcium Level 9.0, Magnesium Level 1.4L, Total Bilirubin 0.3, Aspartate Amino Transf (AST/SGOT) 26, Alanine Aminotransferase (ALT/SGPT) 29, Alkaline Phosphatase 100, Total Protein 7.0, Albumin 2.9L, Albumin/Globulin Ratio 0.7L 04/11/20 20:10: Bedside Glucose (Misc Panel) 195H 04/12/20 06:04: Immature Granulocyte % (Auto) 0.5, Neutrophils (%) (Auto) 82.0H, Lymphocytes (%) (Auto) 12.4L, Monocytes (%) (Auto) 4.6, Eosinophils (%) (Auto) 0.0, Basophils (%) (Auto) 0.5, Neutrophils # (Auto) 6.5, Lymphocytes # (Auto) 1.0L, Monocytes # (Auto) 0.4, Eosinophils # (Auto) 0.0, Basophils # (Auto) 0.0, Nucleated Red Blood Cells % (auto) 0.0, Anion Gap 5L, Glomerular Filtration Rate 56.7, Calcium Level 9.0, Magnesium Level 1.7L, Total Bilirubin 0.5#, Aspartate Amino Transf (AST/SGOT) 22, Alanine Aminotransferase (ALT/SGPT) 29, Alkaline Phosphatase 93, Total Protein 6.6, Albumin 2.9L, Albumin/Globulin Ratio 0.8L CBC/BMP Laboratory Tests 04/11/20 18:45 04/12/20 06:04 Microbiology Microbiology 04/11/20 Gram Stain - Final, Resulted 04/11/20 Wound Culture, Resulted Pending 04/11/20 Anaerobic Culture, Resulted Pending ROMERO SANDOVAL MD Apr 12, 2020 11:08
[2020-04-12] MEDS: PERCOCET 5MG/325MG TAB PO PRN ×3 (11:48→22:01)
[2020-04-12 14:00] VITALS: BP 138/67
--- NOTE | 2020-04-12 15:36 | IPNPDOC ---
Date Seen The patient was seen on 04/12/20. Progress Note Patient seen and examined. Her groin this morning looked great, and I return this afternoon to place in a boot on the left lower extremity. I think this will help with her chronic venous stasis changes on the pretibial aspect of her leg, as well as the sensitive skin swelling and blistering around her carolyn on the medial thigh. If she can tolerate this, we will leave it in place over the wee kend and take a look on Wednesday. As far as her left groin, I still would like to place a wound VAC on this to help granulate and help this heal, but it is difficult to obtain a wound VAC at this time. We will continue to work on this. I am worried that the patient will have skin tears from removing the adhesive for the wound VAC due to her very fragile skin, but without a wound VAC to speed up the healing, I'm worried her groin will deteriorate further. We will see how she does over the next few days with Dakins dressings and place a wound VAC if available. VS, I&O, 24H, Ivanbone Vital Signs/I&O Vital Signs Date Time Temp Pulse Resp B/P (MAP) Pulse Ox O2 Delivery O2 Flow Rate FiO2 04/12/20 12:18 18 04/12/20 11:48 Room Air 04/12/20 06:00 97.4 89 149/78 (101) 98 04/11/20 18:30 3 I&O- Last 24 Hours up to 6 AM 04/12/20 06:00 Intake Total 700 ml Balance 700 ml Laboratory Data 24H LABS Laboratory Tests 2 04/11/20 16:43: Bedside Glucose (Misc Panel) 136H 04/11/20 18:26: Bedside Glucose (Misc Panel) 212H 04/11/20 18:45: Immature Granulocyte % (Auto) 0.6, Neutrophils (%) (Auto) 82.9H, Lymphocytes (%) (Auto) 11.2L, Monocytes (%) (Auto) 3.9, Eosinophils (%) (Auto) 1.0, Basophils (%) (Auto) 0.4, Neutrophils # (Auto) 9.4H, Lymphocytes # (Auto) 1.3L, Monocytes # (Auto) 0.4, Eosinophils # (Auto) 0.1, Basophils # (Auto) 0.0, Nucleated Red Blood Cells % (auto) 0.0, Anion Gap 11, Glomerular Filtration Rate 52.0, Calcium Level 9.0, Magnesium Level 1.4L, Total Bilirubin 0.3, Aspartate Amino Transf (AST/SGOT) 26, Alanine Aminotransferase (ALT/SGPT) 29, Alkaline Phosphatase 100, Total Protein 7.0, Albumin 2.9L, Albumin/Globulin Ratio 0.7L 04/11/20 20:10: Bedside Glucose (Misc Panel) 195H 04/12/20 06:04: Immature Granulocyte % (Auto) 0.5, Neutrophils (%) (Auto) 82.0H, Lymphocytes (%) (Auto) 12.4L, Monocytes (%) (Auto) 4.6, Eosinophils (%) (Auto) 0.0, Basophils (%) (Auto) 0.5, Neutrophils # (Auto) 6.5, Lymphocytes # (Auto) 1.0L, Monocytes # (Auto) 0.4, Eosinophils # (Auto) 0.0, Basophils # (Auto) 0.0, Nucleated Red Blood Cells % (auto) 0.0, Anion Gap 5L, Glomerular Filtration Rate 56.7, Calcium Level 9.0, Magnesium Level 1.7L, Total Bilirubin 0.5#, Aspartate Amino Transf (AST/SGOT) 22, Alanine Aminotransferase (ALT/SGPT) 29, Alkaline Phosphatase 93, Total Protein 6.6, Albumin 2.9L, Albumin/Globulin Ratio 0.8L 04/12/20 12:02: Bedside Glucose (Misc Panel) 179H CBC/BMP Laboratory Tests 04/11/20 18:45 04/12/20 06:04 Microbiology Microbiology 04/11/20 Gram Stain - Final, Resulted 04/11/20 Wound Culture, Resulted Pending 04/11/20 Anaerobic Culture, Resulted Pending VINEET OLIVO MD Apr 12, 2020 15:36
[2020-04-12 22:00] VITALS: BP 175/77
[2020-04-13 03:17] VITALS: BP 166/75
[2020-04-13 06:00] VITALS: BP 173/74
[2020-04-13 06:54] LABS: BASO # 0.1 10^3/uL (0.0-0.2); BASO % 1.3 % (0.0-1.0); EOS # 0.1 10^3/uL (0.0-0.5); EOS % 1.3 % (0.0-3.0); HEMATOCRIT 33.2 % (36.0-47.0); HEMOGLOBIN 9.7 g/dl (12.0-15.5); LYMPH # 2.2 10^3/uL (1.5-5.0); LYMPH % 33.4 % (24.0-44.0); MEAN CORPUSCULAR HEMOGLOBIN 26.3 pg (27.0-33.0); MEAN CORPUSCULAR HGB CONC 29.2 g/dl (32.0-36.5); MONO # 0.5 10^3/uL (0.0-0.8); MONO % 7.7 % (0.0-5.0); NEUTROPHILS # 3.7 10^3/uL (1.5-8.5); NEUTROPHILS % 55.9 % (36.0-66.0); PLATELET COUNT, AUTOMATED 294 10^3/uL (150-450); RED BLOOD COUNT 3.69 10^6/uL (4.00-5.40); WHITE BLOOD COUNT 6.7 10^3/uL (4.0-10.0)
[2020-04-13 07:07] LABS: ALBUMIN 2.7 GM/DL (3.2-5.2); ALT/SGPT 26 U/L (12-78); BILIRUBIN,TOTAL 0.3 MG/DL (0.2-1.0); BLOOD UREA NITROGEN 24 MG/DL (7-18); CALCIUM LEVEL 8.7 MG/DL (8.8-10.2); CARBON DIOXIDE LEVEL 27 MEQ/L (21-32); CHLORIDE LEVEL 106 MEQ/L (98-107); CREATININE FOR GFR 0.98 MG/DL (0.55-1.30); GLOMERULAR FILTRATION RATE > 60.0 (>45); GLUCOSE, FASTING 144 MG/DL (70-100); MAGNESIUM LEVEL 1.8 MG/DL (1.8-2.4); POTASSIUM SERUM 4.1 MEQ/L (3.5-5.1); SODIUM LEVEL 142 MEQ/L (136-145); TOTAL PROTEIN 6.2 GM/DL (6.4-8.2)
[2020-04-13] MEDS: DOXYCYCLINE HYCLATE 100MG TABLET PO SCH ×2 (08:56→21:33)
[2020-04-13] MEDS: DOCUSATE SODIUM 100MG CAPSULE PO SCH ×2 (08:56→21:33)
[2020-04-13] MEDS: HumaLOG INSULIN (NovoLOG) PER UNIT SC SCH ×4 (08:56→21:00)
[2020-04-13 09:18] LABS: NT-PRO BNP 1401 PG/ML (<125)
[2020-04-13] MEDS ORDERED: guaiFENesin/CODEINE SYRUP 5 ML UDC PO ONE (09:30)
--- NOTE | 2020-04-13 09:51 | REP ---
INDICATION: sob cough. COMPARISON: 03/26/2020 TECHNIQUE: Portable FINDINGS: The technique utilized in obtaining the radiograph has magnified the cardiac silhouette and accentuated the interstitial markings. The cardiomediastinal silhouette and lung diez are unchanged. Once again, cardiomegaly accentuated by technique is suspected. No acute patchy parenchymal opacities or pleural effusions have developed. There is no change in the osseous structures. IMPRESSION: Stable chest. No evidence of acute cardiopulmonary disease. <Electronically signed by Yeison French > 04/13/20 0950
[2020-04-13] MEDS ORDERED: MOM 30ML SUSPENSION UDC PO PRN (11:45)
[2020-04-13] MEDS ORDERED: BISACODYL 10 MG SUPP PR PRN (11:45)
[2020-04-13] MEDS ORDERED: FLEET ENEMA PR PRN (11:45)
--- NOTE | 2020-04-13 11:46 | IPNPDOC ---
Date Seen The patient was seen on 04/13/20. Progress Note SUBJECTIVE: c/o cough and sob. no pnd orthopnea fever or chills no n/v/d/abd pain. c/o pain in left groin. OBJECTIVE PHYSICAL EXAMINATION: VITAL SIGNS: Please see below. General: NAD, no pallor. no use of resp acc mm. aao x 3comfortable HEENT: PERRLA, EOMI, sclerae clear Neck: supple, normal ROM, no JVD Respiratory: lungs CTAB, no wheeze, no rales, no crackles CVS: RRR, normal S1, S2, no murmurs Abdo: soft, no masses, no hepatosplenomegaly, BS+, no rebound tenderness Extremities: no edema, pulses 2+ left leg wrapped abi bandage LABORATORY DATA, IMAGING STUDIES, MICROBIOLOGY: Please see below. ASSESSMENT AND PLAN: 69 y/o F w h/o cva w right-sided hemiparesis and dysarthria., PAD, severe peripheral vascular disease and history of right AKA 2006, status post left lower extremity angiogram 01/09/20, no endovascular option for revascularization of her left femoral and SFA . She is status post left common femoral endarterectomy and left femoral to above-knee popliteal bypass with PTFE graft 03/25/20. Readmitted related to poor healing left groin incision s/p L fempop bypass 03/25/20. Status post excisional debridement and partial closure incision 04/11/[address] Bernardo. Left groin cellulitis w poor wound healing s/p L fempop bypass 03/25/20, Status post excisional debridement and partial closure incision 04/11/20 Non healing left urrutia medially due to venous stasis Morbid obesity Chronic atrial fibrillation PAD s/p right above knee amputation amputation after failed angioplasties and bypass. 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 S/p partial nephrectomy Lung nodule stable since 2012. Gout GERD depression Constipation Diverticulosis RLS PLAN: -afebrile w normal wbc on oral doxycycline, pain mgt and wound care per vascular surgery. c/o sough with fluid overload given lasix and zaroxolyn today. resumed on home meds including daily lasix. monitor for worseningrespiratory status as she may need more lasix. recheck mp and mg tonight and supplement k and mg as needed. check creatinine to prevent acute kidney injury. VS, I&O, 24H, Ivanbone Vital Signs/I&O Vital Signs Date Time Temp Pulse Resp B/P (MAP) Pulse Ox O2 Delivery O2 Flow Rate FiO2 04/13/20 06:00 96.2 86 16 173/74 (107) 98 Room Air 04/11/20 18:30 3 I&O- Last 24 Hours up to 6 AM 04/13/20 06:00 Intake Total 1580 ml Balance 1580 ml Laboratory Data 24H LABS Laboratory Tests 2 04/12/20 12:02: Bedside Glucose (Misc Panel) 179H 04/12/20 21:52: Bedside Glucose (Misc Panel) 148H 04/13/20 05:56: Immature Granulocyte % (Auto) 0.4, Neutrophils (%) (Auto) 55.9, Lymphocytes (%) (Auto) 33.4, Monocytes (%) (Auto) 7.7H, Eosinophils (%) (Auto) 1.3, Basophils (%) (Auto) 1.3H, Neutrophils # (Auto) 3.7, Lymphocytes # (Auto) 2.2, Monocytes # (Auto) 0.5, Eosinophils # (Auto) 0.1, Basophils # (Auto) 0.1, Nucleated Red Blood Cells % (auto) 0.0, Anion Gap 9, Glomerular Filtration Rate > 60.0, Calcium Level 8.7L, Magnesium Level 1.8, Total Bilirubin 0.3, Aspartate Amino Transf (AST/SGOT) 23, Alanine Aminotransferase (ALT/SGPT) 26, Alkaline Phosphatase 87, Total Protein 6.2L, Albumin 2.7L, Albumin/Globulin Ratio 0.8L CBC/BMP Laboratory Tests 04/13/20 05:56 Microbiology Microbiology 04/11/20 Gram Stain - Final, Resulted 04/11/20 Wound Culture, Resulted Pending 04/11/20 Anaerobic Culture, Resulted Pending ROMERO SANDOVAL MD Apr 13, 2020 08:07
[2020-04-13] MEDS ORDERED: guaiFENesin/CODEINE SYRUP 5 ML UDC PO PRN (12:00)
[2020-04-13] MEDS ORDERED: metOLazone 5 MG TAB PO ONE (12:00)
[2020-04-13] MEDS ORDERED: FUROSEMIDE 40MG/4ML VIAL (J1940) IV ONE (12:30)
[2020-04-13] MEDS: SITagliptin 50 MG TAB (JANUVIA) PO SCH (13:43)
[2020-04-13] MEDS: VITAMIN D 1,000 INTERNATIONAL UNITS TABLET PO SCH (13:43)
[2020-04-13] MEDS: OMEPRAZOLE 20 MG CAP PO SCH (13:43)
[2020-04-13] MEDS: rOPINIRole 0.25 MG TAB(REQUIP) PO SCH (13:43)
[2020-04-13] MEDS: ACETAMINOPHEN TAB 650MG DOSE (2X325MG) PO PRN (13:43)
[2020-04-13] MEDS: allopurinoL 100 MG TAB PO SCH (13:43)
[2020-04-13] MEDS: LEVEMIR (INSULIN DETEMIR) 1 UNITS/0.01ML SC SCH (13:46)
[2020-04-13] MEDS: METOPROLOL TART 50 MG TAB PO SCH (13:46)
[2020-04-13 14:00] VITALS: BP 184/87
--- NOTE | 2020-04-13 16:47 | IPNPDOC ---
Date Seen The patient was seen on 04/13/20. Progress Note Patient seen and examined postoperative day 2 status post excisional debridement left inguinal incision status post left femoropopliteal bypass. I'm pleased with the healing so far. The medial aspect that we closed is healing well. No erythema induration or signs of infection. The skin edges is already epithelialized. The lateral aspect which was left open is getting smaller. A subcutaneous tissue appears viable. The skin edges are viable. This again was loosely packed with a corner a 4 x 4 damp with Dakin solution, dry gauze over this as well as over the sutures. A pillowcase was placed in the groin fold to prevent moisture buildup. We're doing this dressing twice a day. The patient is tolerating it well. If we could count on ongoing assistance with dressings at the [facility], she could possibly be ready for discharge early next week, but unfortunately this is not the case. We need to make sure that she is almost completely healed prior to discharge so we do not have yet another setback. I've asked the nurses to see if we could find a wound VAC. This may speed up the healing process. We were unable to obtain one last week, but hopefully one will become available soon. For now we will continue with dressing changes as they are working very well. Also, the patient tolerated the application of an Unna boot yesterday. This is over her pretibial ulcers, as well as her thigh incision. We will see how all this looks on Wednesday. She is not complaining that it is too tight or uncomfortable, so we are hopeful that this ongoing compression and elevation will dramatically improve healing of her medial thigh incision as well as the overlying skin that has been taught with edema from having her leg in a dependent position in the wheelchair all day at the [facility]. We will follow closely. We appreciate the opportunity to participate in the care of this patient. VS, I&O, 24H, Fishbone Vital Signs/I&O Vital Signs Date Time Temp Pulse Resp B/P (MAP) Pulse Ox O2 Delivery O2 Flow Rate FiO2 04/13/20 14:00 97.0 89 18 184/87 (119) 99 Room Air 04/11/20 18:30 3 I&O- Last 24 Hours up to 6 AM 04/13/20 06:00 Intake Total 1580 ml Balance 1580 ml Laboratory Data 24H LABS Laboratory Tests 2 04/12/20 21:52: Bedside Glucose (Misc Panel) 148H 04/13/20 05:48: Procalcitonin 0.07 04/13/20 05:56: Immature Granulocyte % (Auto) 0.4, Neutrophils (%) (Auto) 55.9, Lymphocytes (%) (Auto) 33.4, Monocytes (%) (Auto) 7.7H, Eosinophils (%) (Auto) 1.3, Basophils (%) (Auto) 1.3H, Neutrophils # (Auto) 3.7, Lymphocytes # (Auto) 2.2, Monocytes # (Auto) 0.5, Eosinophils # (Auto) 0.1, Basophils # (Auto) 0.1, Nucleated Red Blood Cells % (auto) 0.0, Anion Gap 9, Glomerular Filtration Rate > 60.0, Calcium Level 8.7L, Magnesium Level 1.8, Total Bilirubin 0.3, Aspartate Amino Transf (AST/SGOT) 23, Alanine Aminotransferase (ALT/SGPT) 26, Alkaline Phosphatase 87, [id number] Natriuretic Peptide 1401H, Total Protein 6.2L, Albumin 2.7L, Albumin/Globulin Ratio 0.8L 04/13/20 11:45: Bedside Glucose (Misc Panel) 254H CBC/BMP Laboratory Tests 04/13/20 05:56 Microbiology Microbiology 04/11/20 Gram Stain - Final, Resulted 04/11/20 Wound Culture, Resulted Pending 04/11/20 Anaerobic Culture, Resulted Pending VINEET OLIVO MD Apr 13, 2020 16:47
[2020-04-13 20:15] LABS: CALCIUM LEVEL 8.7 MG/DL (8.8-10.2); CREATININE FOR GFR 1.27 MG/DL (0.55-1.30); GLOMERULAR FILTRATION RATE 44.5 (>45); MAGNESIUM LEVEL 1.6 MG/DL (1.8-2.4); POTASSIUM SERUM 3.8 MEQ/L (3.5-5.1)
[2020-04-13] MEDS: LATANOPROST 0.005% OPHTH SOLN 2.5 ML OU SCH (21:33)
[2020-04-13] MEDS: ROSUVASTATIN 10 MG TAB (CRESTOR) PO SCH (21:33)
[2020-04-13] MEDS: SERTRALINE HCL 50 MG TAB PO SCH (21:33)
[2020-04-13] MEDS: SENNA 8.6 MG TAB (SENOKOT) PO SCH (21:33)
[2020-04-13] MEDS: PERCOCET 5MG/325MG TAB PO PRN (21:34)
[2020-04-13] MEDS: MICONAZOLE 2 % POWDER (DESENEX) TOP SCH (21:34)
[2020-04-13 22:00] VITALS: BP 150/80
[2020-04-14] MEDS: PERCOCET 5MG/325MG TAB PO PRN ×2 (04:31→20:41)
[2020-04-14 06:00] VITALS: BP 156/88
[2020-04-14 06:25] LABS: BASO # 0.1 10^3/uL (0.0-0.2); BASO % 1.3 % (0.0-1.0); EOS # 0.2 10^3/uL (0.0-0.5); EOS % 2.9 % (0.0-3.0); HEMATOCRIT 36.2 % (36.0-47.0); HEMOGLOBIN 10.7 g/dl (12.0-15.5); LYMPH # 1.9 10^3/uL (1.5-5.0); MEAN CORPUSCULAR HEMOGLOBIN 26.4 pg (27.0-33.0); MEAN CORPUSCULAR HGB CONC 29.6 g/dl (32.0-36.5); MEAN CORPUSCULAR VOLUME 89.4 fl (80.0-96.0); MONO # 0.7 10^3/uL (0.0-0.8); MONO % 10.7 % (0.0-5.0); NEUTROPHILS # 3.4 10^3/uL (1.5-8.5); NEUTROPHILS % 54.6 % (36.0-66.0); PLATELET COUNT, AUTOMATED 345 10^3/uL (150-450); RED BLOOD COUNT 4.05 10^6/uL (4.00-5.40); WHITE BLOOD COUNT 6.2 10^3/uL (4.0-10.0)
[2020-04-14 07:04] LABS: BILIRUBIN,TOTAL 0.5 MG/DL (0.2-1.0); CALCIUM LEVEL 9.1 MG/DL (8.8-10.2); CREATININE FOR GFR 1.11 MG/DL (0.55-1.30); MAGNESIUM LEVEL 1.8 MG/DL (1.8-2.4); POTASSIUM SERUM 3.9 MEQ/L (3.5-5.1); TOTAL PROTEIN 6.6 GM/DL (6.4-8.2)
[2020-04-14] MEDS ORDERED: metOLazone 5 MG TAB PO ONE (08:30)
[2020-04-14] MEDS ORDERED: FUROSEMIDE 40MG/4ML VIAL (J1940) IV ONE (08:30)
--- NOTE | 2020-04-14 08:31 | IPNPDOC ---
Date Seen The patient was seen on 04/14/20. Progress Note SUBJECTIVE: c/o pain in the left groin 8/10 scale w/o fever or chills denies nausea vomiting breathing is better. OBJECTIVE PHYSICAL EXAMINATION: VITAL SIGNS: Please see below. General: NAD, no pallor. no use of resp acc mm. aao x 3comfortable HEENT: PERRLA, EOMI, sclerae clear Neck: supple, normal ROM, no JVD Respiratory: lungs CTAB, no wheeze, no rales, no crackles CVS: RRR, normal S1, S2, no murmurs Abdo: soft, no masses, no hepatosplenomegaly, BS+, no rebound tenderness Extremities: no edema, pulses 2+ left leg wrapped abi bandage LABORATORY DATA, IMAGING STUDIES, MICROBIOLOGY: Please see below. ASSESSMENT AND PLAN: 69 y/o F w h/o cva w right-sided hemiparesis and dysarthria., PAD, severe peripheral vascular disease and history of right AKA 2006, status post left lower extremity angiogram 01/09/20, no endovascular option for revascularization of her left femoral and SFA . She is status post left common femoral endarterectomy and left femoral to above-knee popliteal bypass with PTFE graft 03/25/20. Readmitted related to poor healing left groin incision s/p L fempop bypass 03/25/20. Status post excisional debridement and partial closure incision 04/11/[address] Bernardo. Left groin cellulitis w poor wound healing s/p L fempop bypass 03/25/20, Status post excisional debridement and partial closure incision 04/11/20 Non healing left urrutia medially due to venous stasis fluid overload, resolved Morbid obesity Chronic atrial fibrillation PAD s/p right above knee amputation amputation after failed angioplasties and bypass. 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 S/p partial nephrectomy Lung nodule stable since 2012. Gout GERD depression Constipation Diverticulosis RLS PLAN: -still c/o pain. given prn pain meds. cx: sensitive to bactrim sob improved s/p lasix but incontinent per Rn and had pure wick soaked yesterday.r echeck cxr and bnp. monitor renal fx with bactrim . postop mgt per vascular surgery. VS, I&O, 24H, Fishbone Vital Signs/I&O Vital Signs Date Time Temp Pulse Resp B/P (MAP) Pulse Ox O2 Delivery O2 Flow Rate FiO2 04/14/20 06:00 97.3 74 16 156/88 (110) 98 Room Air 04/11/20 18:30 3 I&O- Last 24 Hours up to 6 AM 04/14/20 06:00 Intake Total 480 ml Output Total 300 ml Balance 180 ml Laboratory Data 24H LABS Laboratory Tests 2 04/13/20 11:45: Bedside Glucose (Misc Panel) 254H 04/13/20 16:39: Bedside Glucose (Misc Panel) 133H 04/13/20 19:52: Anion Gap 8, Glomerular Filtration Rate 44.5L, Calcium Level 8.7L, Magnesium Level 1.6L 04/13/20 21:17: Bedside Glucose (Misc Panel) 167H 04/14/20 06:10: Immature Granulocyte % (Auto) 0.5, Neutrophils (%) (Auto) 54.6, Lymphocytes (%) (Auto) 30.0, Monocytes (%) (Auto) 10.7H, Eosinophils (%) (Auto) 2.9, Basophils (%) (Auto) 1.3H, Neutrophils # (Auto) 3.4, Lymphocytes # (Auto) 1.9, Monocytes # (Auto) 0.7, Eosinophils # (Auto) 0.2, Basophils # (Auto) 0.1, Nucleated Red Blood Cells % (auto) 0.0, Anion Gap 5L, Glomerular Filtration Rate 52.0, Calcium Level 9.1, Magnesium Level 1.8, Total Bilirubin 0.5#, Aspartate Amino Transf (AST/SGOT) 22, Alanine Aminotransferase (ALT/SGPT) 23, Alkaline Phosphatase 90, Total Protein 6.6, Albumin 3.0L, Albumin/Globulin Ratio 0.8L CBC/BMP Laboratory Tests 04/13/20 19:52 04/14/20 06:10 Microbiology Microbiology 04/11/20 Gram Stain - Final, Resulted 04/11/20 Wound Culture - Final, Resulted Escherichia Coli Enterococcus Raffinosus Proteus Mirabilis 04/11/20 Anaerobic Culture, Resulted Pending ROMERO SANDOVAL MD Apr 14, 2020 08:31
[2020-04-14] MEDS ORDERED: PERCOCET 5MG/325MG TAB PO ONE (09:00)
[2020-04-14] MEDS: HumaLOG INSULIN (NovoLOG) PER UNIT SC SCH ×4 (09:42→20:42)
[2020-04-14] MEDS: LEVEMIR (INSULIN DETEMIR) 1 UNITS/0.01ML SC SCH (09:42)
[2020-04-14] MEDS: BACTRIM 160MG/800MG DS TAB PO SCH ×2 (09:43→20:42)
[2020-04-14] MEDS: DOXYCYCLINE HYCLATE 100MG TABLET PO SCH ×2 (09:43→20:41)
[2020-04-14] MEDS: DOCUSATE SODIUM 100MG CAPSULE PO SCH ×2 (09:43→20:41)
[2020-04-14] MEDS: SITagliptin 50 MG TAB (JANUVIA) PO SCH (09:43)
[2020-04-14] MEDS: VITAMIN D 1,000 INTERNATIONAL UNITS TABLET PO SCH (09:43)
[2020-04-14] MEDS: rOPINIRole 0.25 MG TAB(REQUIP) PO SCH (09:43)
[2020-04-14] MEDS: allopurinoL 100 MG TAB PO SCH (09:43)
[2020-04-14] MEDS: OMEPRAZOLE 20 MG CAP PO SCH (09:43)
[2020-04-14] MEDS: METOPROLOL TART 50 MG TAB PO SCH (09:46)
[2020-04-14] MEDS: MICONAZOLE 2 % POWDER (DESENEX) TOP SCH ×2 (09:47→20:43)
--- NOTE | 2020-04-14 10:09 | REP ---
INDICATION: sob cough. COMPARISON: Yesterday TECHNIQUE: Portable FINDINGS: The technique utilized in obtaining the radiograph has magnified the cardiac silhouette and accentuated the interstitial markings. The superior mediastinal structures are midline. The cardiac silhouette is magnified by technique. The diaphragmatic surfaces of the lungs are regular, and the costophrenic angles are clear. The pulmonary diez are clear. The imaged osseous structures are intact. IMPRESSION: There is no acute cardiopulmonary disease or significant change from the prior exam. <Electronically signed by Yeison French > 04/14/20 [id number]
[2020-04-14 14:00] VITALS: BP 146/64
--- NOTE | 2020-04-14 14:13 | IPNPDOC ---
Date Seen The patient was seen on 04/14/20. Progress Note Patient seen and examined postoperative day 3 status post excisional debridement left inguinal incision status post left femoropopliteal bypass. I'm pleased with the healing so far. The medial aspect that we closed is healing well. No erythema induration or signs of infection. The skin edges is already epithelialized. The lateral aspect which was left open is getting smaller. The subcutaneous tissue appears viable and there is no drainage or exudate. The skin edges are viable with no erythema, induration. This again was loosely packed with a corner a 4 x 4 damp with Dakins solution, dry gauze over this as well as over the sutures. A pillowcase was placed in the groin fold to prevent moisture buildup. We're doing this dressing twice a day. The patient is tolerating it well. If we could count on ongoing assistance with dressings at the longterm, she could possibly be ready for discharge early next week, but unfortunately this is not the case. We need to make sure that she is almost completely healed prior to discharge so we do not have yet another setback and yet another readmission. I've asked the nurses to see if we could find a wound VAC, but so far one is still not available. This may speed up the healing process. We were unable to obtain one last week either, but hopefully one will become available soon. For now we will continue with dressing changes as they are working very well. Also, the patient tolerated the application of an Unna boot Wednesday. This is over her pretibial ulcers, as well as her thigh incision. We will see how all this looks tomorrow. She is not complaining that it is too tight or uncomfortable, so we are hopeful that this ongoing compression and elevation will dramatically improve healing of her medial thigh incision as well as the overlying skin that has been taught with edema from having her leg in a dependent position in the wheelchair all day at the longterm. We will follow closely. We appreciate the opportunity to participate in the care of this patient. VS, I&O, 24H, Fishbone Vital Signs/I&O Vital Signs Date Time Temp Pulse Resp B/P (MAP) Pulse Ox O2 Delivery O2 Flow Rate FiO2 04/14/20 10:42 18 04/14/20 09:46 159/98 04/14/20 09:43 Room Air 04/14/20 06:00 97.3 74 98 04/11/20 18:30 3 I&O- Last 24 Hours up to 6 AM 04/14/20 06:00 Intake Total 480 ml Output Total 300 ml Balance 180 ml Laboratory Data 24H LABS Laboratory Tests 2 04/13/20 16:39: Bedside Glucose (Misc Panel) 133H 04/13/20 19:52: Anion Gap 8, Glomerular Filtration Rate 44.5L, Calcium Level 8.7L, Magnesium Level 1.6L 04/13/20 21:17: Bedside Glucose (Misc Panel) 167H 04/14/20 06:10: Anion Gap 5L, Glomerular Filtration Rate 52.0, Calcium Level 9.1, Magnesium Level 1.8, Immature Granulocyte % (Auto) 0.5, Neutrophils (%) (Auto) 54.6, Lymphocytes (%) (Auto) 30.0, Monocytes (%) (Auto) 10.7H, Eosinophils (%) (Auto) 2.9, Basophils (%) (Auto) 1.3H, Neutrophils # (Auto) 3.4, Lymphocytes # (Auto) 1.9, Monocytes # (Auto) 0.7, Eosinophils # (Auto) 0.2, Basophils # (Auto) 0.1, Nucleated Red Blood Cells % (auto) 0.0, Total Bilirubin 0.5#, Aspartate Amino Transf (AST/SGOT) 22, Alanine Aminotransferase (ALT/SGPT) 23, Alkaline Phosphatase 90, SP-[id number]-Type Natriuretic Peptide 1112H, Total Protein 6.6, Albumin 3.0L, Albumin/Globulin Ratio 0.8L 04/14/20 11:46: Bedside Glucose (Misc Panel) 233H CBC/BMP Laboratory Tests 04/13/20 19:52 04/14/20 06:10 Microbiology Microbiology 04/11/20 Gram Stain - Final, Resulted 04/11/20 Wound Culture - Final, Resulted Escherichia Coli Enterococcus Raffinosus Proteus Mirabilis 04/11/20 Anaerobic Culture, Resulted Pending VINEET OLIVO MD Apr 14, 2020 14:13
[2020-04-14] MEDS: SERTRALINE HCL 50 MG TAB PO SCH (20:41)
[2020-04-14] MEDS: SENNA 8.6 MG TAB (SENOKOT) PO SCH (20:42)
[2020-04-14] MEDS: ROSUVASTATIN 10 MG TAB (CRESTOR) PO SCH (20:42)
[2020-04-14] MEDS: LATANOPROST 0.005% OPHTH SOLN 2.5 ML OU SCH (20:42)
[2020-04-14 20:57] LABS: CALCIUM LEVEL 9.3 MG/DL (8.8-10.2); CREATININE FOR GFR 1.09 MG/DL (0.55-1.30); GLOMERULAR FILTRATION RATE 53.1 (>45); POTASSIUM SERUM 4.1 MEQ/L (3.5-5.1)
[2020-04-14 22:00] VITALS: BP 144/65
[2020-04-15 06:00] VITALS: BP 165/70
[2020-04-15 06:52] LABS: BASO # 0.1 10^3/uL (0.0-0.2); BASO % 0.8 % (0.0-1.0); EOS # 0.2 10^3/uL (0.0-0.5); EOS % 2.8 % (0.0-3.0); HEMATOCRIT 36.6 % (36.0-47.0); HEMOGLOBIN 11.1 g/dl (12.0-15.5); LYMPH # 2.1 10^3/uL (1.5-5.0); LYMPH % 27.2 % (24.0-44.0); MEAN CORPUSCULAR HEMOGLOBIN 26.7 pg (27.0-33.0); MEAN CORPUSCULAR HGB CONC 30.3 g/dl (32.0-36.5); MEAN CORPUSCULAR VOLUME 88.2 fl (80.0-96.0); MONO # 0.8 10^3/uL (0.0-0.8); MONO % 10.9 % (0.0-5.0); NEUTROPHILS # 4.5 10^3/uL (1.5-8.5); NEUTROPHILS % 57.9 % (36.0-66.0); PLATELET COUNT, AUTOMATED 302 10^3/uL (150-450); RED BLOOD COUNT 4.15 10^6/uL (4.00-5.40); WHITE BLOOD COUNT 7.7 10^3/uL (4.0-10.0)
[2020-04-15 07:05] LABS: ALBUMIN 2.7 GM/DL (3.2-5.2); BILIRUBIN,TOTAL 0.3 MG/DL (0.2-1.0); CALCIUM LEVEL 9.3 MG/DL (8.8-10.2); CREATININE FOR GFR 1.14 MG/DL (0.55-1.30); GLOMERULAR FILTRATION RATE 50.5 (>45); POTASSIUM SERUM 4.6 MEQ/L (3.5-5.1)
[2020-04-15] MEDS: VITAMIN D 1,000 INTERNATIONAL UNITS TABLET PO SCH (08:29)
[2020-04-15] MEDS: BACTRIM 160MG/800MG DS TAB PO SCH ×2 (08:29→20:17)
[2020-04-15] MEDS: LEVEMIR (INSULIN DETEMIR) 1 UNITS/0.01ML SC SCH (08:29)
[2020-04-15] MEDS: DOCUSATE SODIUM 100MG CAPSULE PO SCH ×2 (08:29→20:17)
[2020-04-15] MEDS: DOXYCYCLINE HYCLATE 100MG TABLET PO SCH (08:31)
[2020-04-15] MEDS: allopurinoL 100 MG TAB PO SCH (08:31)
[2020-04-15] MEDS: SITagliptin 50 MG TAB (JANUVIA) PO SCH (08:31)
[2020-04-15] MEDS: OMEPRAZOLE 20 MG CAP PO SCH (08:31)
[2020-04-15] MEDS: METOPROLOL TART 50 MG TAB PO SCH (08:31)
[2020-04-15] MEDS: rOPINIRole 0.25 MG TAB(REQUIP) PO SCH (08:31)
[2020-04-15] MEDS: MICONAZOLE 2 % POWDER (DESENEX) TOP SCH ×2 (08:32→20:17)
[2020-04-15] MEDS: HumaLOG INSULIN (NovoLOG) PER UNIT SC SCH ×4 (08:32→21:00)
[2020-04-15] MEDS: PERCOCET 5MG/325MG TAB PO PRN ×2 (08:32→16:27)
--- NOTE | 2020-04-15 09:13 | IPNPDOC ---
Date Seen The patient was seen on 04/15/20. Progress Note SUBJECTIVE: 6/10 pain in left groin s/p dressing change by vascular surgery this am. no cough, sob, fever or chills OBJECTIVE PHYSICAL EXAMINATION: VITAL SIGNS: Please see below. General: eating her breakfast aaox 3 no distress HEENT: no cervical lad EOMI, sclerae clear Neck: supple, normal ROM, no JVD Respiratory: lungs CTAB, no wheeze, no rales, no crackles CVS: RRR, normal S1, S2, no murmurs Abdo: soft, no masses, no hepatosplenomegaly, BS+, no rebound tenderness Extremities: no edema, pulses 2+ left leg wrapped abi bandage LABORATORY DATA, IMAGING STUDIES, MICROBIOLOGY: Please see below. ASSESSMENT AND PLAN: 69 y/o F w h/o cva w right-sided hemiparesis and dysarthria., PAD, severe peripheral vascular disease and history of right AKA 2006, status post left lower extremity angiogram 01/09/20, no endovascular option for revascularization of her left femoral and SFA . She is status post left common femoral endarterectomy and left femoral to above-knee popliteal bypass with PTFE graft 03/25/20. Readmitted related to poor healing left groin incision s/p L fempop bypass 03/25/20. Status post excisional debridement and partial closure incision 04/11/[address] Bernardo. Left groin cellulitis w poor wound healing s/p L fempop bypass 03/25/20,Status post excisional debridement and partial closure incision 04/11/20 Non healing left urrutia ulcers medially due to venous stasis PAD s/p right above knee amputation amputation after failed angioplasties and bypass.Left leg ischemia stasis ulcers left lower extremity -managed by vascular surgery -on po abx -no fever or chills fluid overload, resolved -given lasix and zaroxoly with resolution Morbid obesity -complicating care Chronic atrial fibrillation -rate controlled o n metoprolol -holding off ac -defer to vascular when oral ac can be restarted Hyperlipidemia -chronic Hypertension -controlled on metoprolol DM with neuropathy -consistent carbs sliding scale w coverage CAD -defer to vascular surgery when oral antiplt can be resumed CVA, 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 -chronic -on metoprolol S/p partial nephrectomy -monitor creatinine. renally dosed meds and avoid dehydration Lung nodule stable since 2012. -chronic Gout -chronic GERD -on ppi depression -stable Constipation -bowel regimen Diverticulosis -no acute c/o RLS -on meds aru screen. VS, I&O, 24H, Fishbone Vital Signs/I&O Vital Signs Date Time Temp Pulse Resp B/P (MAP) Pulse Ox O2 Delivery O2 Flow Rate FiO2 04/15/20 08:32 18 04/15/20 08:31 92 164/72 04/15/20 06:00 97.5 96 Room Air 04/11/20 18:30 3 I&O- Last 24 Hours up to 6 AM 04/15/20 06:00 Intake Total 870 ml Output Total 950 ml Balance -80 ml Laboratory Data 24H LABS Laboratory Tests 2 04/14/20 11:46: Bedside Glucose (Misc Panel) 233H 04/14/20 17:04: Bedside Glucose (Misc Panel) 201H 04/14/20 19:26: Anion Gap 6L, Glomerular Filtration Rate 53.1, Calcium Level 9.3, Magnesium Level 2.0 04/14/20 20:26: Whole Blood Ionized Calcium 4.5 04/14/20 20:32: Bedside Glucose (Misc Panel) 196H 04/15/20 06:31: Immature Granulocyte % (Auto) 0.4, Neutrophils (%) (Auto) 57.9, Lymphocytes (%) (Auto) 27.2, Monocytes (%) (Auto) 10.9H, Eosinophils (%) (Auto) 2.8, Basophils (%) (Auto) 0.8, Neutrophils # (Auto) 4.5, Lymphocytes # (Auto) 2.1, Monocytes # (Auto) 0.8, Eosinophils # (Auto) 0.2, Basophils # (Auto) 0.1, Nucleated Red Blood Cells % (auto) 0.0, Anion Gap 10, Glomerular Filtration Rate 50.5, Calcium Level 9.3, Magnesium Level 2.0, Total Bilirubin 0.3, Aspartate Amino Transf (AST/SGOT) 44H, Alanine Aminotransferase (ALT/SGPT) 24, Alkaline Phosphatase 94, Total Protein 7.0, Albumin 2.7L, Albumin/Globulin Ratio 0.6L CBC/BMP Laboratory Tests 04/14/20 19:26 04/15/20 06:31 Microbiology Microbiology 04/11/20 Gram Stain - Final, Resulted 04/11/20 Wound Culture - Final, Resulted Escherichia Coli Enterococcus Raffinosus Proteus Mirabilis 04/11/20 Anaerobic Culture, Resulted Pending ROMERO SANDOVAL MD Apr 15, 2020 09:13
--- NOTE | 2020-04-15 09:46 | IPNPDOC ---
Date Seen The patient was seen on 04/15/20. Progress Note Patient seen and examined postoperative day 4 status post excisional debridement left inguinal incision status post left femoropopliteal bypass. I'm pleased with the healing so far. The medial aspect that we closed is healing well. No erythema induration or signs of infection. The skin edges are already epithelialized. The lateral aspect which was left open is getting a little bit smaller each day. The subcutaneous tissue appears viable and there is no drainage or exudate. The skin edges are viable with no erythema, induration. This again was loosely packed with a corner a 4 x 4 damp with Dakins solution, dry gauze over this as well as over the sutures. A pillowcase was placed in the groin fold to prevent moisture buildup. We're doing this dressing twice a day. The patient is tolerating it well. If we could count on ongoing assistance with dressings at the correction, she could possibly be ready for discharge soon, but unfortunately this is not the case. We need to make sure that she is almost completely healed prior to discharge so we do not have yet another setback and yet another readmission. I've asked the nurses to see if we could find a wound VAC, but so far one is still not available. This may speed up the healing process. We were unable to obtain one last week either, but hopefully one will become available soon. For now we will continue with dressing changes as they are working very well. Also, the patient tolerated the application of an Unna boot Wednesday. This was over her pretibial ulcers, as well as her thigh incision. I removed this today. With the compression, along with left lower extremity elevation, there is a marked improvement in the edema and the stress on the tissue in the left lower extremity. The pretibial ulcer is almost completely healed, and the ulceration just medial to this is remarkably improved as well. I think ongoing Unna boot th erapy will be beneficial for the patient. She definitely needs compression, especially if she is going to return to the correction and be back in a wheelchair all day with her leg in a dependent position. It also seems to help the incision on the medial thigh. It took pressure off the incision, and although there is still some skin to heal on the medial inferior aspect, from blistering, overall it looks much better. We will take every other staple out today and then we will replace the Jameea boot at her next dressing change. We will follow closely. We appreciate the opportunity to participate in the care of this patient. VS, I&O, 24H, Fishbone Vital Signs/I&O Vital Signs Date Time Temp Pulse Resp B/P (MAP) Pulse Ox O2 Delivery O2 Flow Rate FiO2 04/15/20 08:32 18 04/15/20 08:31 92 164/72 04/15/20 06:00 97.5 96 Room Air 04/11/20 18:30 3 I&O- Last 24 Hours up to 6 AM 04/15/20 06:00 Intake Total 870 ml Output Total 950 ml Balance -80 ml Laboratory Data 24H LABS Laboratory Tests 2 04/14/20 11:46: Bedside Glucose (Misc Panel) 233H 04/14/20 17:04: Bedside Glucose (Misc Panel) 201H 04/14/20 19:26: Anion Gap 6L, Glomerular Filtration Rate 53.1, Calcium Level 9.3, Magnesium Level 2.0 04/14/20 20:26: Whole Blood Ionized Calcium 4.5 04/14/20 20:32: Bedside Glucose (Misc Panel) 196H 04/15/20 06:31: Immature Granulocyte % (Auto) 0.4, Neutrophils (%) (Auto) 57.9, Lymphocytes (%) (Auto) 27.2, Monocytes (%) (Auto) 10.9H, Eosinophils (%) (Auto) 2.8, Basophils (%) (Auto) 0.8, Neutrophils # (Auto) 4.5, Lymphocytes # (Auto) 2.1, Monocytes # (Auto) 0.8, Eosinophils # (Auto) 0.2, Basophils # (Auto) 0.1, Nucleated Red Blood Cells % (auto) 0.0, Anion Gap 10, Glomerular Filtration Rate 50.5, Calcium Level 9.3, Magnesium Level 2.0, Total Bilirubin 0.3, Aspartate Amino Transf (AST/SGOT) 44H, Alanine Aminotransferase (ALT/SGPT) 24, Alkaline Phosphatase 94, Total Protein 7.0, Albumin 2.7L, Albumin/Globulin Ratio 0.6L CBC/BMP Laboratory Tests 04/14/20 19:26 04/15/20 06:31 Microbiology Microbiology 04/11/20 Gram Stain - Final, Resulted 04/11/20 Wound Culture - Final, Resulted Escherichia Coli Enterococcus Raffinosus Proteus Mirabilis 04/11/20 Anaerobic Culture, Resulted Pending VINEET OLIVO MD Apr 15, 2020 09:46
[2020-04-15] MEDS ORDERED: ASPIRIN 81 MG ENTERIC TAB PO ONE (09:50)
--- NOTE | 2020-04-15 13:42 | IPNPDOC ---
Date Seen The patient was seen on 04/15/20. Progress Note Patient seen and examined this afternoon for her second dressing change and Unna boot application, we noticed the wound VAC was in the room. We therefore removed the dressing from the left groin, thoroughly cleaned it, and placed Adaptic over the medial incision sutures, then placed a wound VAC and tract it out to the mid lateral right thigh to prevent ulceration in the groin pannus from the track pad. A good seal was noted. We will keep this at -125 mmHg low continuous suction. We then cleaned the pretibial and the lateral ulcer on the calf, and took out every other staple on the thigh incision. Some dressing was placed over the lateral calf wound and the carolyn and a Coflex Unna boot was placed from the distal foot to the mid thigh. The patient tolerated this well. I discussed with her that I am not sure how well the seal on the wound will keep in the groin due to the moisture she tends to build up. We did replace the pillowcase in the groin folds to help control some of this, but the patient tends to sweat profusely in her groin, and without a border of ostomy paced, this may not stick. Unfortunately we could not obtain ostomy paced today, but if we have to replace the wound VAC we will use it. I'm not worried the seal will break with her laying there, [place] pannus helps to keep pressure and she doesn't move around much, but when they change her depends and she uses the bedpan, it may become loose. We will see how it goes and decide about options for replacing it as needed. Measurements of the wound before wound VAC placement were length 1.4 cm x width 4.9 cm x 0.8 cm. VS, I&O, 24H, [facility] Vital Signs/I&O Vital Signs Date Time Temp Pulse Resp B/P (MAP) Pulse Ox O2 Delivery O2 Flow Rate FiO2 04/15/20 09:02 18 04/15/20 08:31 92 164/72 04/15/20 06:00 97.5 96 Room Air 04/11/20 18:30 3 I&O- Last 24 Hours up to 6 AM 04/15/20 05:59 Intake Total 810 ml Output Total 950 ml Balance -140 ml Laboratory Data 24H LABS Laboratory Tests 2 04/14/20 17:04: Bedside Glucose (Misc Panel) 201H 04/14/20 19:26: Anion Gap 6L, Glomerular Filtration Rate 53.1, Calcium Level 9.3, Magnesium Level 2.0 04/14/20 20:26: Whole Blood Ionized Calcium 4.5 04/14/20 20:32: Bedside Glucose (Misc Panel) 196H 04/15/20 06:31: Immature Granulocyte % (Auto) 0.4, Neutrophils (%) (Auto) 57.9, Lymphocytes (%) (Auto) 27.2, Monocytes (%) (Auto) 10.9H, Eosinophils (%) (Auto) 2.8, Basophils (%) (Auto) 0.8, Neutrophils # (Auto) 4.5, Lymphocytes # (Auto) 2.1, Monocytes # (Auto) 0.8, Eosinophils # (Auto) 0.2, Basophils # (Auto) 0.1, Nucleated Red Blood Cells % (auto) 0.0, Anion Gap 10, Glomerular Filtration Rate 50.5, Calcium Level 9.3, Magnesium Level 2.0, Total Bilirubin 0.3, Aspartate Amino Transf (AST/SGOT) 44H, Alanine Aminotransferase (ALT/SGPT) 24, Alkaline Phosphatase 94, Total Protein 7.0, Albumin 2.7L, Albumin/Globulin Ratio 0.6L 04/15/20 11:47: Bedside Glucose (Misc Panel) 162H CBC/BMP Laboratory Tests 04/14/20 19:26 04/15/20 06:31 Microbiology Microbiology 04/11/20 Gram Stain - Final, Resulted 04/11/20 Wound Culture - Final, Resulted Escherichia Coli Enterococcus Raffinosus Proteus Mirabilis 04/11/20 Anaerobic Culture, Resulted Pending VINEET OLIVO MD Apr 15, 2020 13:41
[2020-04-15 14:00] VITALS: BP 155/88
[2020-04-15] MEDS: RIVAROXABAN 20 MG TAB (XARELTO) PO SCH (17:29)
[2020-04-15] MEDS: SERTRALINE HCL 50 MG TAB PO SCH (20:17)
[2020-04-15] MEDS: ROSUVASTATIN 10 MG TAB (CRESTOR) PO SCH (20:17)
[2020-04-15] MEDS: LATANOPROST 0.005% OPHTH SOLN 2.5 ML OU SCH (20:17)
[2020-04-15] MEDS: SENNA 8.6 MG TAB (SENOKOT) PO SCH (20:17)
[2020-04-15 22:00] VITALS: BP 138/62
[2020-04-16 06:00] VITALS: BP 156/64
[2020-04-16 07:21] LABS: BASO # 0.1 10^3/uL (0.0-0.2); BASO % 0.9 % (0.0-1.0); EOS # 0.3 10^3/uL (0.0-0.5); EOS % 3.3 % (0.0-3.0); HEMATOCRIT 37.3 % (36.0-47.0); LYMPH # 1.7 10^3/uL (1.5-5.0); LYMPH % 22.2 % (24.0-44.0); MEAN CORPUSCULAR HEMOGLOBIN 25.8 pg (27.0-33.0); MEAN CORPUSCULAR HGB CONC 29.5 g/dl (32.0-36.5); MEAN CORPUSCULAR VOLUME 87.6 fl (80.0-96.0); MONO # 0.7 10^3/uL (0.0-0.8); MONO % 9.1 % (0.0-5.0); NEUTROPHILS # 4.8 10^3/uL (1.5-8.5); NEUTROPHILS % 64.1 % (36.0-66.0); PLATELET COUNT, AUTOMATED 373 10^3/uL (150-450); RED BLOOD COUNT 4.26 10^6/uL (4.00-5.40); WHITE BLOOD COUNT 7.5 10^3/uL (4.0-10.0)
[2020-04-16 07:41] LABS: ALBUMIN 3.1 GM/DL (3.2-5.2); BILIRUBIN,TOTAL 0.3 MG/DL (0.2-1.0); CALCIUM LEVEL 9.5 MG/DL (8.8-10.2); CREATININE FOR GFR 1.25 MG/DL (0.55-1.30); GLOMERULAR FILTRATION RATE 45.4 (>45); MAGNESIUM LEVEL 1.9 MG/DL (1.8-2.4); POTASSIUM SERUM 4.5 MEQ/L (3.5-5.1); TOTAL PROTEIN 6.8 GM/DL (6.4-8.2)
[2020-04-16] MEDS: OMEPRAZOLE 20 MG CAP PO SCH (08:07)
[2020-04-16] MEDS: VITAMIN D 1,000 INTERNATIONAL UNITS TABLET PO SCH (08:07)
[2020-04-16] MEDS: ASPIRIN 81 MG ENTERIC TAB PO SCH (08:07)
[2020-04-16] MEDS: DOCUSATE SODIUM 100MG CAPSULE PO SCH ×2 (08:07→20:37)
[2020-04-16] MEDS: SITagliptin 50 MG TAB (JANUVIA) PO SCH (08:07)
[2020-04-16] MEDS: allopurinoL 100 MG TAB PO SCH (08:08)
[2020-04-16] MEDS: BACTRIM 160MG/800MG DS TAB PO SCH ×2 (08:08→20:37)
[2020-04-16] MEDS: LEVEMIR (INSULIN DETEMIR) 1 UNITS/0.01ML SC SCH (08:08)
[2020-04-16] MEDS: METOPROLOL TART 50 MG TAB PO SCH (08:08)
[2020-04-16] MEDS: rOPINIRole 0.25 MG TAB(REQUIP) PO SCH (08:08)
[2020-04-16] MEDS: MICONAZOLE 2 % POWDER (DESENEX) TOP SCH ×2 (08:09→20:38)
[2020-04-16] MEDS: HumaLOG INSULIN (NovoLOG) PER UNIT SC SCH ×4 (08:09→20:34)
[2020-04-16] MEDS: PERCOCET 5MG/325MG TAB PO PRN ×3 (08:11→23:42)
--- NOTE | 2020-04-16 09:39 | IPNPDOC ---
Date Seen The patient was seen on 04/16/20. Progress Note Patient seen and examined postoperative day 5 status post left excisional debridement of skin and subcutaneous tissue at groin incision status post femoropopliteal bypass. She is doing well again today status post wound VAC placement left groin and Unna boot replacement left lower extremity. She has made considerable progress since being inpatient while getting appropriate consistent dressing changes. I like to continue the wound VAC until . At that time, we will check the open area which is already considerably smaller. If it is well granulated, I'm hopeful we will have minimized the risk for a third failure due to limited options for assistance with care of the incisions at the shelter. Likely, at that time, we will switch her to Hydrofera Blue in the open area and dry gauze with a pillowcase in the groin fold. We will not continue the wound VAC long-term, as the open area is so small and is not easy to place and seal the wound VAC due to her fragile skin and obesity. For now, if the wound VAC remains intact, we will keep it in place until . We will also removed Unna boot at that time. Her pretibial ulcers are almost completely healed. The thigh incision had half the carolyn removed yesterday, and the blistered skin and skin tears from the tape around the incision have almost healed. There is still some concern that this incision is also tenuous because of her obesity, poor tissue quality, and extreme left lower extremity edema from sitting in a wheelchair all day at the shelter with her leg and dependent position, but I'm hopeful we have turned a corner with this also. The patient is very worried about losing her way, and I have expressed to her that if all of these incisions fail and we get an infection of the bypass, it will have to come out and likely that will result in limb loss. That is why we are taking all of this extra care to try to salvage her bypass. So far, her left foot as well perfused with adequate signal over the bypass. We appreciate the opportunity to participate in the care of this patient. VS, I&O, 24H, Fishbone Vital Signs/I&O Vital Signs Date Time Temp Pulse Resp B/P (MAP) Pulse Ox O2 Delivery O2 Flow Rate FiO2 04/16/20 08:11 20 04/16/20 08:08 82 156/64 04/16/20 06:00 97.6 96 Room Air 04/11/20 18:30 3 I&O- Last 24 Hours up to 6 AM 04/16/20 06:00 Intake Total 1330 ml Output Total 400 ml Balance 930 ml Laboratory Data 24H LABS Laboratory Tests 2 04/15/20 11:47: Bedside Glucose (Misc Panel) 162H 04/15/20 16:32: Bedside Glucose (Misc Panel) 163H 04/15/20 21:24: Bedside Glucose (Misc Panel) 147H 04/16/20 06:41: Immature Granulocyte % (Auto) 0.4, Neutrophils (%) (Auto) 64.1, Lymphocytes (%) (Auto) 22.2L, Monocytes (%) (Auto) 9.1H, Eosinophils (%) (Auto) 3.3H, Basophils (%) (Auto) 0.9, Neutrophils # (Auto) 4.8, Lymphocytes # (Auto) 1.7, Monocytes # (Auto) 0.7, Eosinophils # (Auto) 0.3, Basophils # (Auto) 0.1, Nucleated Red Blood Cells % (auto) 0.0, Anion Gap 11, Glomerular Filtration Rate 45.4, Calcium Level 9.5, Magnesium Level 1.9, Total Bilirubin 0.3, Aspartate Amino Transf (AST/SGOT) 20, Alanine Aminotransferase (ALT/SGPT) 22, Alkaline Phosphatase 103, Total Protein 6.8, Albumin 3.1L, Albumin/Globulin Ratio 0.8L CBC/BMP Laboratory Tests 04/16/20 06:41 Microbiology Microbiology 04/11/20 Gram Stain - Final, Complete 04/11/20 Wound Culture - Final, Complete Escherichia Coli Enterococcus Raffinosus Proteus Mirabilis 04/11/20 Anaerobic Culture - Final, Complete Diegootella VINEET Ragsdale MD Apr 16, 2020 09:39
[2020-04-16 14:00] VITALS: BP 135/54
--- NOTE | 2020-04-16 15:46 | IPNPDOC ---
Text Note Date of Service The patient was seen on 04/16/20. NOTE SUBJECTIVE: Leg pain is controlled this am. sitting up in bed. No fever or ch ills, no chest pain or SOB. PHYSICAL EXAMINATION: VITAL SIGNS: Please see below. General: sitting up in bd in no distress, aaox 3 HEENT: NC, AT, moist mucous membranes, anicteric eyes. NECK: no cervical lad, short neck, No JVD appreciated. RESP: lungs CTAB, no wheeze, no rales, no crackles CVS: RRR, normal S1, S2, no murmurs ABD: soft, no masses, no hepatosplenomegaly, BS+, no rebound tenderness Extremities: Right AKA, no edema in left leg wrapped abi bandage LABORATORY DATA, IMAGING STUDIES, MICROBIOLOGY: Please see below. ASSESSMENT AND PLAN: 69 y/o F w h/o cva w right-sided hemiparesis and dysarthria., PAD, severe peripheral vascular disease and history of right AKA 2006, status post left lower extremity angiogram 01/09/20, no endovascular option for revascularization of her left femoral and SFA . She is status post left common femoral endarterectomy and left femoral to above-knee popliteal bypass with PTFE graft 03/25/20. Readmitted related to poor healing left groin incision s/p L fempop bypass 03/25/20. Status post excisional debridement and partial closure incision 04/11/[address] Bernardo. Left groin cellulitis w poor wound healing s/p L fempop bypass 03/25/20 Status post excisional debridement and partial closure incision 04/11/20, With wound vac placement. culture grew; Proteus, enterococcus, prevotella, E coli. On Bactrim Non healing left urrutia ulcers medially due to venous stasis and chronic edema Now almost closed. PAD s/p right above knee amputation amputation after failed angioplasties and bypass. Left leg ischemia stasis ulcers left lower extremity managed by vascular surgery on po abx Fluid overload, resolved given Lasix and zaroxolyn with resolution Morbid obesity complicating care Chronic atrial fibrillation rate controlled on metoprolol On xarelto Hyperlipidemia rosuvastatin Hypertension controlled on metoprolol DM with neuropathy consistent carbs sliding scale w coverage, levemir Januvia. 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 chronic S/p partial nephrectomy monitor creatinine. renally dosed meds and avoid dehydration Lung nodule stable since 2012. chronic Gout/hyperuricemia allopurinol GERD on ppi depression sertraline Constipation bowel regimen Diverticulosis no acute c/o RLS ropinirole VS,Fishbone, I+O VS, Fishbone, I+O Laboratory Tests 04/16/20 06:41 Vital Signs Date Time Temp Pulse Resp B/P (MAP) Pulse Ox O2 Delivery O2 Flow Rate FiO2 04/16/20 14:00 97.3 70 18 135/54 (81) 95 Room Air 04/11/20 18:30 3 I&O- Last 24 Hours up to 6 AM 04/16/20 06:00 Intake Total 1330 ml Output Total 400 ml Balance 930 ml VICENTE STEPHENS MD Apr 16, 2020 15:46
[2020-04-16] MEDS: RIVAROXABAN 20 MG TAB (XARELTO) PO SCH (17:18)
[2020-04-16] MEDS: LATANOPROST 0.005% OPHTH SOLN 2.5 ML OU SCH (20:37)
[2020-04-16] MEDS: SERTRALINE HCL 50 MG TAB PO SCH (20:37)
[2020-04-16] MEDS: ROSUVASTATIN 10 MG TAB (CRESTOR) PO SCH (20:37)
[2020-04-16] MEDS: SENNA 8.6 MG TAB (SENOKOT) PO SCH (20:37)
[2020-04-16 22:00] VITALS: BP 138/61
[2020-04-17 06:00] VITALS: BP 195/82
[2020-04-17 07:30] VITALS: BP 152/80
[2020-04-17 08:03] LABS: BASO # 0.1 10^3/uL (0.0-0.2); BASO % 1.2 % (0.0-1.0); EOS # 0.3 10^3/uL (0.0-0.5); EOS % 3.8 % (0.0-3.0); HEMATOCRIT 35.7 % (36.0-47.0); HEMOGLOBIN 10.8 g/dl (12.0-15.5); LYMPH # 1.6 10^3/uL (1.5-5.0); LYMPH % 23.9 % (24.0-44.0); MEAN CORPUSCULAR HEMOGLOBIN 26.3 pg (27.0-33.0); MEAN CORPUSCULAR HGB CONC 30.3 g/dl (32.0-36.5); MEAN CORPUSCULAR VOLUME 87.1 fl (80.0-96.0); MONO # 0.8 10^3/uL (0.0-0.8); MONO % 12.2 % (0.0-5.0); NEUTROPHILS # 3.8 10^3/uL (1.5-8.5); NEUTROPHILS % 58.6 % (36.0-66.0); PLATELET COUNT, AUTOMATED 293 10^3/uL (150-450); WHITE BLOOD COUNT 6.6 10^3/uL (4.0-10.0)
[2020-04-17 08:17] LABS: BILIRUBIN,TOTAL 0.2 MG/DL (0.2-1.0); CREATININE FOR GFR 1.17 MG/DL (0.55-1.30); MAGNESIUM LEVEL 1.8 MG/DL (1.8-2.4); POTASSIUM SERUM 4.7 MEQ/L (3.5-5.1); TOTAL PROTEIN 6.6 GM/DL (6.4-8.2)
[2020-04-17] MEDS: SITagliptin 50 MG TAB (JANUVIA) PO SCH (10:42)
[2020-04-17] MEDS: VITAMIN D 1,000 INTERNATIONAL UNITS TABLET PO SCH (10:42)
[2020-04-17] MEDS: rOPINIRole 0.25 MG TAB(REQUIP) PO SCH (10:42)
[2020-04-17] MEDS: BACTRIM 160MG/800MG DS TAB PO SCH ×2 (10:43→20:37)
[2020-04-17] MEDS: allopurinoL 100 MG TAB PO SCH (10:43)
[2020-04-17] MEDS: ASPIRIN 81 MG ENTERIC TAB PO SCH (10:43)
[2020-04-17] MEDS: FUROSEMIDE 40 MG TAB PO SCH (10:43)
[2020-04-17] MEDS: DOCUSATE SODIUM 100MG CAPSULE PO SCH ×2 (10:43→20:37)
[2020-04-17] MEDS: METOPROLOL TART 50 MG TAB PO SCH (10:43)
[2020-04-17] MEDS: HumaLOG INSULIN (NovoLOG) PER UNIT SC SCH ×4 (10:44→21:00)
[2020-04-17] MEDS: OMEPRAZOLE 20 MG CAP PO SCH (10:44)
[2020-04-17] MEDS: LEVEMIR (INSULIN DETEMIR) 1 UNITS/0.01ML SC SCH (10:44)
[2020-04-17] MEDS: PERCOCET 5MG/325MG TAB PO PRN ×2 (10:51→20:38)
[2020-04-17] MEDS: MICONAZOLE 2 % POWDER (DESENEX) TOP SCH ×2 (10:51→20:36)
--- NOTE | 2020-04-17 12:50 | IPNPDOC ---
Date Seen The patient was seen on 04/17/20. Progress Note Patient seen and examined postoperative day 6 status post left excisional debridement of skin and subcutaneous tissue at groin incision status post femoropopliteal bypass. She is doing well again today status post wound VAC placement left groin and Unna boot replacement left lower extremity. She has made considerable progress since being inpatient while getting appropriate consistent dressing changes. I'd like to continue the wound VAC until tomorrow. At that time, we will check the open area which is already considerably smaller. If it is well granulated, I'm hopeful we will have minimized the risk for a third failure due to limited options for assistance with care of the incisions at the shelter. Likely, at that time, we will switch her to Hydrofera Blue in the open area and dry gauze with a pillowcase in the groin fold. We will not continue the wound VAC long-term, as the open area is so small and is not easy to place and seal the wound VAC due to her fragile skin and obesity. For now, if the wound VAC remains intact, we will keep it in place until . We will also removed Unna boot at that time. Her pretibial ulcers are almost completely healed. The thigh incision had half the carolyn removed yesterday, and the blistered skin and skin tears from the tape around the incision have almost healed. There is still some concern that this incision is also tenuous because of her obesity, poor tissue quality, and extreme left lower extremity edema from sitting in a wheelchair all day at the shelter with her leg and dependent position, but I'm hopeful we have turned a corner with this also. The patient is very worried about losing her leg, and I have expressed to her that if all of these incisions fail and we get an infection of the bypass, it will have to come out and likely that will result in limb loss. That is why we are taking all of this extra care to try to salvage her bypass. So far, her left foot as well perfused with a good signal over the bypass. We appreciate the opportunity to participate in the care of this patient. VS, I&O, 24H, Fishbone Vital Signs/I&O Vital Signs Date Time Temp Pulse Resp B/P (MAP) Pulse Ox O2 Delivery O2 Flow Rate FiO2 04/17/20 10:51 20 04/17/20 10:43 78 152/80 04/17/20 06:00 97.1 93 Room Air 04/11/20 18:30 3 I&O- Last 24 Hours up to 6 AM 04/17/20 06:00 Intake Total 1080 ml Output Total 100 ml Balance 980 ml Laboratory Data 24H LABS Laboratory Tests 2 04/16/20 16:44: Bedside Glucose (Misc Panel) 178H 04/16/20 20:33: Bedside Glucose (Misc Panel) 175H 04/17/20 07:09: Immature Granulocyte % (Auto) 0.3, Neutrophils (%) (Auto) 58.6, Lymphocytes (%) (Auto) 23.9L, Monocytes (%) (Auto) 12.2H, Eosinophils (%) (Auto) 3.8H, Basophils (%) (Auto) 1.2H, Neutrophils # (Auto) 3.8, Lymphocytes # (Auto) 1.6, Monocytes # (Auto) 0.8, Eosinophils # (Auto) 0.3, Basophils # (Auto) 0.1, Nucleated Red Blood Cells % (auto) 0.0, Anion Gap 12, Glomerular Filtration Rate 49.0, Calcium Level 9.0, Magnesium Level 1.8, Total Bilirubin 0.2, Aspartate Amino Transf (AST/SGOT) 28, Alanine Aminotransferase (ALT/SGPT) 22, Alkaline Phosphatase 95, Total Protein 6.6, Albumin 3.0L, Albumin/Globulin Ratio 0.8L 04/17/20 10:31: Bedside Glucose (Misc Panel) 277H 04/17/20 11:51: Bedside Glucose (Misc Panel) 271H CBC/BMP Laboratory Tests 04/17/20 07:09 Microbiology Microbiology 04/11/20 Gram Stain - Final, Complete 04/11/20 Wound Culture - Final, Complete Escherichia Coli Enterococcus Raffinosus Proteus Mirabilis 04/11/20 Anaerobic Culture - Final, Complete Diegootella VINEET Ragsdale MD Apr 17, 2020 12:50
[2020-04-17] MEDS: ACETAMINOPHEN TAB 650MG DOSE (2X325MG) PO PRN (12:55)
--- NOTE | 2020-04-17 13:32 | IPNPDOC ---
Text Note Date of Service The patient was seen on 04/17/20. NOTE SUBJECTIVE: Leg pain is controlled this am. No fever or chills, no chest pain or SOB. As per Dr Echeverria wound is healing though slowly. PHYSICAL EXAMINATION: VITAL SIGNS: Please see below. General: sitting up in bd in no distress, aaox 3 HEENT: NC, AT, moist mucous membranes, anicteric eyes. NECK: no cervical lad, short neck, No JVD appreciated. RESP: lungs CTAB, no wheeze, no rales, no crackles CVS: RRR, normal S1, S2, no murmurs ABD: soft, no masses, no hepatosplenomegaly, BS+, no rebound tenderness Extremities: Right AKA, no edema in left leg wrapped abi bandage LABORATORY DATA, IMAGING STUDIES, MICROBIOLOGY: Please see below. ASSESSMENT AND PLAN: 69 y/o F w h/o cva w right-sided hemiparesis and dysarthria., PAD, severe peripheral vascular disease and history of right AKA 2006, status post left lower extremity angiogram 01/09/20, no endovascular optio n for revascularization of her left femoral and SFA . She is status post left common femoral endarterectomy and left femoral to above-knee popliteal bypass with PTFE graft 03/25/20. Readmitted related to poor healing left groin incision s/p L fempop bypass 03/25/20. Status post excisional debridement and partial closure incision 04/11/[address] Bernardo. Status post wound VAC placement left groin and Unna boot replacement left lower extremity. The thigh incision had half the carolyn removed on 04/15/20, had blistered skin and skin tears from the tape around the incision which have almost healed. Left groin cellulitis w poor wound healing s/p L fempop bypass 03/25/20 Status post excisional debridement and partial closure incision 04/11/20, With wound vac placement. culture grew; Proteus, enterococcus, Prevotella, E coli. On Bactrim will add metronidazole Non healing left urrutia ulcers medially due to venous stasis and chronic edema Now almost closed. PAD s/p right above knee amputation amputation after failed angioplasties and bypass. Left leg ischemia stasis ulcers left lower extremity managed by vascular surgery on po abx Fluid overload, resolved given Lasix and zaroxolyn with resolution will continue home lasix Morbid obesity complicating care Chronic atrial fibrillation rate controlled on metoprolol On xarelto Hyperlipidemia rosuvastatin Hypertension controlled on metoprolol DM with neuropathy consistent carbs sliding scale w coverage, levemir Januvia. 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 chronic S/p partial nephrectomy monitor creatinine. renally dosed meds and avoid dehydration Lung nodule stable since 2012. chronic Gout/hyperuricemia allopurinol GERD on ppi depression sertraline Constipation bowel regimen Diverticulosis no acute c/o RLS ropinirole Dispo: To [facility]. VS,James, I+O VS, James, I+O Laboratory Tests 04/17/20 07:09 Vital Signs Date Time Temp Pulse Resp B/P (MAP) Pulse Ox O2 Delivery O2 Flow Rate FiO2 04/17/20 11:21 20 04/17/20 10:43 78 152/80 04/17/20 06:00 97.1 93 Room Air 04/11/20 18:30 3 I&O- Last 24 Hours up to 6 AM 04/17/20 05:59 Intake Total 1130 ml Output Total 100 ml Balance 1030 ml VICENTE STEPHENS MD Apr 17, 2020 13:31
[2020-04-17 14:00] VITALS: BP 124/56
[2020-04-17] MEDS: RIVAROXABAN 20 MG TAB (XARELTO) PO SCH (17:12)
[2020-04-17] MEDS: metroNIDAZOLE (FLAGYL) 500MG TABLET PO SCH ×2 (17:12→20:37)
[2020-04-17] MEDS: LATANOPROST 0.005% OPHTH SOLN 2.5 ML OU SCH (20:36)
[2020-04-17] MEDS: SENNA 8.6 MG TAB (SENOKOT) PO SCH (20:37)
[2020-04-17] MEDS: ROSUVASTATIN 10 MG TAB (CRESTOR) PO SCH (20:37)
[2020-04-17] MEDS: SERTRALINE HCL 50 MG TAB PO SCH (20:37)
[2020-04-17 22:00] VITALS: BP 121/70
[2020-04-18 06:00] VITALS: BP 188/84
[2020-04-18 06:11] VITALS: BP 160/80
[2020-04-18 08:00] LABS: BASO # 0.1 10^3/uL (0.0-0.2); EOS # 0.2 10^3/uL (0.0-0.5); EOS % 3.7 % (0.0-3.0); HEMATOCRIT 37.8 % (36.0-47.0); HEMOGLOBIN 11.3 g/dl (12.0-15.5); LYMPH # 1.5 10^3/uL (1.5-5.0); LYMPH % 25.5 % (24.0-44.0); MEAN CORPUSCULAR HGB CONC 29.9 g/dl (32.0-36.5); MEAN CORPUSCULAR VOLUME 87.1 fl (80.0-96.0); MONO # 0.6 10^3/uL (0.0-0.8); MONO % 10.6 % (0.0-5.0); NEUTROPHILS # 3.5 10^3/uL (1.5-8.5); NEUTROPHILS % 58.7 % (36.0-66.0); PLATELET COUNT, AUTOMATED 317 10^3/uL (150-450); RED BLOOD COUNT 4.34 10^6/uL (4.00-5.40)
[2020-04-18 08:23] LABS: ALBUMIN 3.2 GM/DL (3.2-5.2); BILIRUBIN,TOTAL 0.2 MG/DL (0.2-1.0); CALCIUM LEVEL 9.3 MG/DL (8.8-10.2); CREATININE FOR GFR 1.34 MG/DL (0.55-1.30); GLOMERULAR FILTRATION RATE 41.9 (>45); POTASSIUM SERUM 4.8 MEQ/L (3.5-5.1); TOTAL PROTEIN 6.9 GM/DL (6.4-8.2)
--- NOTE | 2020-04-18 08:51 | IPNPDOC ---
Date Seen The patient was seen on 04/18/20. Progress Note Patient seen and examined one week postop status post left excisional debridement of skin and subcutaneous tissue at groin incision status post femoropopliteal bypass. She is doing well today. She is in good spirits. We removed the wound VAC at the left groin. Medial portion of the incision that is closed with mattress sutures is healing well. The lateral portion of the incision that is open is now partially granulated, but no significant difference in size is noted. We did not continue the wound VAC as I do not feel it made a large difference. I thoroughly cleaned the incision and the entire area, and redressed with adaptive dry Dakin's solution at the lateral aspect and dry over the incision. Tape was placed in a pillowcase was placed in the groin fold tubes or moisture. The patient tolerated this well. Unfortunately, she has high risk for a third failure due to limited options for assistance with care of the incisions at the senior care. Likely, at that time, we will switch her to Hydrofera Blue in the open area and dry gauze with a pillowcase in the groin fold. We will not continue the wound VAC long-term, as the open area is so small and is not easy to place and seal the wound VAC due to her fragile skin and obesity. We removed her Unna boot today. Her pretibial ulcers are almost completely healed. The lateral ulcer is still a little bit crusty [id number], we thor oughly cleaned this and dressed it with a foam dressing. The thigh incision had half the carolyn removed a few days ago, and the blistered skin and skin tears from the tape around the incision have almost healed. There is still some concern that this incision remains tenuous because of her obesity, poor tissue quality, and extreme left lower extremity edema from sitting in a wheelchair all day at the senior care with her leg and dependent position, but I'm hopeful we have turned a corner with this also. The patient is very worried about losing her leg, and I have expressed to her that if all of these incisions fail and we get an infection of the bypass, it will have to be removed and likely that will result in limb loss. That is why we are taking all of this extra care to try to salvage her bypass. So far, her left foot is well perfused with adequate signal over the bypass. We will see how everything looks tomorrow and decide about discharge back to senior care at that time. We will see if we can obtain Hydrofera Blue for the groin incision open area. We appreciate the opportunity to participate in the care of this patient. VS, I&O, 24H, Fishbone Vital Signs/I&O Vital Signs Date Time Temp Pulse Resp B/P (MAP) Pulse Ox O2 Delivery O2 Flow Rate FiO2 04/18/20 06:11 82 160/80 (106) 04/18/20 06:00 97.5 19 98 Room Air I&O- Last 24 Hours up to 6 AM 04/18/20 06:00 Intake Total 940 ml Output Total 0 ml Balance 940 ml Laboratory Data 24H LABS Laboratory Tests 2 04/17/20 10:31: Bedside Glucose (Misc Panel) 277H 04/17/20 11:51: Bedside Glucose (Misc Panel) 271H 04/17/20 16:39: Bedside Glucose (Misc Panel) 163H 04/17/20 20:08: Bedside Glucose (Misc Panel) 144H 04/18/20 05:48: Bedside Glucose (Misc Panel) 114 04/18/20 07:05: Immature Granulocyte % (Auto) 0.5, Neutrophils (%) (Auto) 58.7, Lymphocytes (%) (Auto) 25.5, Monocytes (%) (Auto) 10.6H, Eosinophils (%) (Auto) 3.7H, Basophils (%) (Auto) 1.0, Neutrophils # (Auto) 3.5, Lymphocytes # (Auto) 1.5, Monocytes # (Auto) 0.6, Eosinophils # (Auto) 0.2, Basophils # (Auto) 0.1, Nucleated Red Blood Cells % (auto) 0.0, Anion Gap 11, Glomerular Filtration Rate 41.9L, Calcium Level 9.3, Magnesium Level 2.0, Total Bilirubin 0.2, Aspartate Amino Transf (AST/SGOT) 26, Alanine Aminotransferase (ALT/SGPT) 24, Alkaline Phosphatase 99, Total Protein 6.9, Albumin 3.2, Albumin/Globulin Ratio 0.9L CBC/BMP Laboratory Tests 04/18/20 07:05 Microbiology Microbiology 04/11/20 Gram Stain - Final, Complete 04/11/20 Wound Culture - Final, Complete Escherichia Coli Enterococcus Raffinosus Proteus Mirabilis 04/11/20 Anaerobic Culture - Final, Complete Prevotella VINEET Ragsdale MD Apr 18, 2020 08:50
[2020-04-18] MEDS: LEVEMIR (INSULIN DETEMIR) 1 UNITS/0.01ML SC SCH (09:44)
[2020-04-18] MEDS: MICONAZOLE 2 % POWDER (DESENEX) TOP SCH ×2 (09:44→21:28)
[2020-04-18] MEDS: HumaLOG INSULIN (NovoLOG) PER UNIT SC SCH ×4 (09:45→21:00)
[2020-04-18] MEDS: rOPINIRole 0.25 MG TAB(REQUIP) PO SCH (09:45)
[2020-04-18] MEDS: FUROSEMIDE 40 MG TAB PO SCH (09:45)
[2020-04-18] MEDS: OMEPRAZOLE 20 MG CAP PO SCH (09:45)
[2020-04-18] MEDS: allopurinoL 100 MG TAB PO SCH (09:46)
[2020-04-18] MEDS: BACTRIM 160MG/800MG DS TAB PO SCH ×2 (09:46→21:27)
[2020-04-18] MEDS: SITagliptin 50 MG TAB (JANUVIA) PO SCH (09:46)
[2020-04-18] MEDS: VITAMIN D 1,000 INTERNATIONAL UNITS TABLET PO SCH (09:46)
[2020-04-18] MEDS: DOCUSATE SODIUM 100MG CAPSULE PO SCH ×2 (09:46→21:25)
[2020-04-18] MEDS: metroNIDAZOLE (FLAGYL) 500MG TABLET PO SCH ×3 (09:46→21:26)
[2020-04-18] MEDS: ASPIRIN 81 MG ENTERIC TAB PO SCH (09:46)
[2020-04-18] MEDS: METOPROLOL TART 50 MG TAB PO SCH (09:48)
[2020-04-18] MEDS: PERCOCET 5MG/325MG TAB PO PRN (09:53)
--- NOTE | 2020-04-18 11:47 | IPNPDOC ---
Text Note Date of Service The patient was seen on 04/18/20. NOTE SUBJECTIVE: Overall feeling OK. No SOB. Wound healing slowly as per Dr Ken dawn. Wound Vac removed today. PHYSICAL EXAM: VITAL SIGNS: Please see below. General: sitting up in bd in no distress, aaox 3 HEENT: NC, AT, moist mucous membranes, anicteric eyes. NECK: no cervical lad, short neck, No JVD appreciated. RESP: lungs CTAB, no wheeze, no rales, no crackles CVS: RRR, normal S1, S2, no murmurs ABD: soft, no masses, no hepatosplenomegaly, BS+, no rebound tenderness Extremities: Right AKA, no edema in left leg wrapped abi bandage LABORATORY DATA, IMAGING STUDIES, MICROBIOLOGY: Please see below. ASSESSMENT AND PLAN: 69 y/o F w h/o cva w right-sided hemiparesis and dysarthria., PAD, severe peripheral vascular disease and history of right AKA 2006, status post left lower extremity angiogram 01/09/20, no endovascular option for revascularization of her left femoral and SFA . She is status post left common femoral endarterectomy and left femoral to above-knee popliteal bypass with PTFE graft 03/25/20. Readmitted related to poor healing left groin incision s/p L fempop bypass 03/25/20. Status post excisional debridement and partial closure incision 04/11/[address] Bernardo. Status post wound VAC placement left groin and Unna boot replacement left lower extremity. The thigh incision had half the carolyn removed on 04/15/20, had blistered skin and skin tears from the tape around the incision which have almost healed. Left groin cellulitis w poor wound healing s/p L fempop bypass 03/25/20 Status post excisional debridement and partial closure incision 04/11/20, With wound vac placement. Medial portion of the incision that is closed with mattress sutures is healing well. The lateral portion of the incision that is open is now partially granulated, but no significant difference in size is noted. wound vac removed on 04/18/20 culture grew; Proteus, enterococcus, Prevotella, E coli. On Bactrim and metronidazole. PAD s/p right above knee amputation amputation after failed angioplasties and bypass. Left leg ischemia, stasis ulcers left lower extremity managed by vascular surgery Left leg venous stasis ulcers have almost closed now. Thigh incision healing slowly. every alternate carolyn have been removed. on po abx Fluid overload, resolved given Lasix and zaroxolyn with resolution will continue home lasix Morbid obesity complicating care Chronic atrial fibrillation rate controlled on metoprolol On xarelto Hyperlipidemia rosuvastatin Hypertension controlled on metoprolol DM with neuropathy consistent carbs sliding scale w coverage, levemir Januvia. 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 chronic S/p partial nephrectomy monitor creatinine. renally dosed meds and avoid dehydration Lung nodule stable since 2012. chronic Gout/hyperuricemia allopurinol GERD on ppi depression sertraline Constipation bowel regimen Diverticulosis no acute c/o RLS ropinirole VS,Fishbone, I+O VS, Fishbone, I+O Laboratory Tests 04/18/20 07:05 Vital Signs Date Time Temp Pulse Resp B/P (MAP) Pulse Ox O2 Delivery O2 Flow Rate FiO2 04/18/20 10:45 18 Room Air 04/18/20 09:48 83 138/68 04/18/20 06:00 97.5 98 I&O- Last 24 Hours up to 6 AM 04/18/20 05:59 Intake Total 940 ml Output Total 0 ml Balance 940 ml VICENTE STEPHENS MD Apr 18, 2020 11:47
[2020-04-18 14:00] VITALS: BP 135/61
[2020-04-18] MEDS: RIVAROXABAN 20 MG TAB (XARELTO) PO SCH (17:21)
[2020-04-18] MEDS: ROSUVASTATIN 10 MG TAB (CRESTOR) PO SCH (21:25)
[2020-04-18] MEDS: SENNA 8.6 MG TAB (SENOKOT) PO SCH (21:26)
[2020-04-18] MEDS: SERTRALINE HCL 50 MG TAB PO SCH (21:26)
[2020-04-18] MEDS: LATANOPROST 0.005% OPHTH SOLN 2.5 ML OU SCH (21:27)
[2020-04-18 22:00] VITALS: BP 142/65
[2020-04-19 06:00] VITALS: BP 168/64
[2020-04-19] MEDS: MICONAZOLE 2 % POWDER (DESENEX) TOP SCH ×2 (08:43→20:50)
[2020-04-19] MEDS: DOCUSATE SODIUM 100MG CAPSULE PO SCH ×2 (08:46→20:48)
[2020-04-19] MEDS: BACTRIM 160MG/800MG DS TAB PO SCH ×2 (08:46→20:51)
[2020-04-19] MEDS: OMEPRAZOLE 20 MG CAP PO SCH (08:46)
[2020-04-19] MEDS: metroNIDAZOLE (FLAGYL) 500MG TABLET PO SCH ×3 (08:46→20:47)
[2020-04-19] MEDS: LEVEMIR (INSULIN DETEMIR) 1 UNITS/0.01ML SC SCH (08:46)
[2020-04-19] MEDS: HumaLOG INSULIN (NovoLOG) PER UNIT SC SCH ×4 (08:46→20:49)
[2020-04-19] MEDS: ASPIRIN 81 MG ENTERIC TAB PO SCH (08:46)
[2020-04-19] MEDS: SITagliptin 50 MG TAB (JANUVIA) PO SCH (08:46)
[2020-04-19] MEDS: VITAMIN D 1,000 INTERNATIONAL UNITS TABLET PO SCH (08:46)
[2020-04-19] MEDS: FUROSEMIDE 40 MG TAB PO SCH (08:47)
[2020-04-19] MEDS: rOPINIRole 0.25 MG TAB(REQUIP) PO SCH (08:47)
[2020-04-19] MEDS: allopurinoL 100 MG TAB PO SCH (08:47)
[2020-04-19] MEDS: METOPROLOL TART 50 MG TAB PO SCH (08:47)
--- NOTE | 2020-04-19 08:52 | IPNPDOC ---
Date Seen The patient was seen on 04/19/20. Progress Note Patient seen and examined over one week postop status post left excisional debridement of skin and subcutaneous tissue at groin incision status post fem oropopliteal bypass. She is doing well today. She is in good spirits. We removed the wound VAC at the left groin yesterday. Medial portion of the incision that is closed with mattress sutures is healing well. The lateral portion of the incision that is open is now partially granulated, but no significant difference in size is noted. We did not continue the wound VAC as I do not feel it made a large difference with increasing granulation tissue or decreased wound size. I thoroughly cleaned the incision and the entire area, and redressed with damp to dry Dakin's solution at the lateral aspect and dry over the incision. Tape was placed in a pillowcase was placed in the groin fold tubes or moisture. The patient tolerated this well. Today, it is clean with good granulation at the base. We changed her dressing to Hydrofera Blue in the open area and dry gauze over this and over the medial aspect of the incision. We again placed a pillowcase in the groin fold to prevent moisture buildup. We replaced her Unna boot today. Her pretibial ulcers are almost completely healed. The lateral ulcer is still a little bit crusty [id number], we thoroughly cleaned this and dressed it with a foam dressing. The thigh incision had half the carolyn removed a few days ago, and the blistered skin and skin tears from the tape around the incision have almost healed. There is still some concern that this incision r emains tenuous because of her obesity, poor tissue quality, and extreme left lower extremity edema [facility] and dependent position. I'm hopeful we have turned a corner with this, and that the Unna boot will control the swelling she experiences from having her leg dependent all day in her wheelchair. Unfortunately, she has high risk for a third failure due to limited options for assistance with [facility]. The patient is very worried about losing her leg, and I have expressed to her that if all of these incisions fail and we get an infection of the bypass, it will have to be removed and likely that will result in limb loss. That is why we are taking all of this extra care to try to salvage her bypass. So far, her left foot is well perfused with adequate signal over the bypass. We are very concerned to [facility] without her incision completely healed, and this is high risk for failure if they are not able to assist us with her dressings. We will see her back early next week to check on how things are going. She will need to be [facility] on a stretcher so we can examine the groin. Vascular surgery discharge instructions- please add to discharge orders and discharge summary: Follow-up next week to check incisions. Patient should be transported on a stretcher so we can examine her incisions. Light activity as tolerated. No lifting greater than 5 pounds, no strenuous exer cise. Wound care: Thoroughly clean left groin, pat dry. Cut a piece of Hydrofera Blue to fit the open area and place that in the open area. Cover the Hydrofera Blue/open area and the medial sutures with dry gauze. Secure with a small amount of paper tape. Place a pillowcase or inter dry in the groin crease to prevent buildup of moisture. We appreciate the opportunity to participate in the care of this patient. VS, I&O, 24H, Fishbone Vital Signs/I&O Vital Signs Date Time Temp Pulse Resp B/P (MAP) Pulse Ox O2 Delivery O2 Flow Rate FiO2 04/19/20 06:00 71 16 168/64 (98) 99 Room Air 04/18/20 22:00 98.5 I&O- Last 24 Hours up to 6 AM 04/19/20 05:59 Intake Total 985 ml Output Total 100 ml Balance 885 ml Laboratory Data 24H LABS Laboratory Tests 2 04/18/20 12:18: Bedside Glucose (Misc Panel) 131H 04/18/20 17:16: Bedside Glucose (Misc Panel) 139H 04/18/20 21:04: Bedside Glucose (Misc Panel) 177H 04/19/20 06:09: Bedside Glucose (Misc Panel) 159H Microbiology Microbiology 04/11/20 Gram Stain - Final, Complete 04/11/20 Wound Culture - Final, Complete Escherichia Coli Enterococcus Raffinosus Proteus Mirabilis 04/11/20 Anaerobic Culture - Final, Complete Prevotella VINEET Ragsdale MD Apr 19, 2020 08:52
[2020-04-19] MEDS: PERCOCET 5MG/325MG TAB PO PRN ×2 (08:55→20:48)
[2020-04-19 14:00] VITALS: BP 114/60
[2020-04-19] MEDS: RIVAROXABAN 20 MG TAB (XARELTO) PO SCH (17:49)
[2020-04-19] MEDS: ROSUVASTATIN 10 MG TAB (CRESTOR) PO SCH (20:48)
[2020-04-19] MEDS: SENNA 8.6 MG TAB (SENOKOT) PO SCH (20:48)
[2020-04-19] MEDS: SERTRALINE HCL 50 MG TAB PO SCH (20:48)
[2020-04-19] MEDS: LATANOPROST 0.005% OPHTH SOLN 2.5 ML OU SCH (20:50)
[2020-04-20 06:00] VITALS: BP 167/84
[2020-04-20] MEDS: SITagliptin 50 MG TAB (JANUVIA) PO SCH (09:27)
[2020-04-20] MEDS: BACTRIM 160MG/800MG DS TAB PO SCH ×2 (09:27→21:38)
[2020-04-20] MEDS: DOCUSATE SODIUM 100MG CAPSULE PO SCH ×2 (09:27→21:39)
[2020-04-20] MEDS: metroNIDAZOLE (FLAGYL) 500MG TABLET PO SCH ×3 (09:27→21:38)
[2020-04-20] MEDS: rOPINIRole 0.25 MG TAB(REQUIP) PO SCH (09:27)
[2020-04-20] MEDS: FUROSEMIDE 40 MG TAB PO SCH (09:28)
[2020-04-20] MEDS: ASPIRIN 81 MG ENTERIC TAB PO SCH (09:28)
[2020-04-20] MEDS: allopurinoL 100 MG TAB PO SCH (09:28)
[2020-04-20] MEDS: OMEPRAZOLE 20 MG CAP PO SCH (09:28)
[2020-04-20] MEDS: LEVEMIR (INSULIN DETEMIR) 1 UNITS/0.01ML SC SCH (09:28)
[2020-04-20] MEDS: HumaLOG INSULIN (NovoLOG) PER UNIT SC SCH ×4 (09:28→21:00)
[2020-04-20] MEDS: VITAMIN D 1,000 INTERNATIONAL UNITS TABLET PO SCH (09:28)
[2020-04-20] MEDS: PERCOCET 5MG/325MG TAB PO PRN (09:30)
[2020-04-20] MEDS: METOPROLOL TART 50 MG TAB PO SCH (09:32)
[2020-04-20] MEDS: MICONAZOLE 2 % POWDER (DESENEX) TOP SCH ×2 (11:42→21:40)
[2020-04-20] MEDS: RIVAROXABAN 20 MG TAB (XARELTO) PO SCH (17:57)
[2020-04-20] MEDS: SENNA 8.6 MG TAB (SENOKOT) PO SCH (21:38)
[2020-04-20] MEDS: ROSUVASTATIN 10 MG TAB (CRESTOR) PO SCH (21:39)
[2020-04-20] MEDS: LATANOPROST 0.005% OPHTH SOLN 2.5 ML OU SCH (21:39)
[2020-04-20] MEDS: SERTRALINE HCL 50 MG TAB PO SCH (21:39)
[2020-04-21] MEDS: PERCOCET 5MG/325MG TAB PO PRN ×3 (01:54→20:23)
[2020-04-21 06:00] VITALS: BP 122/68
[2020-04-21] MEDS: metroNIDAZOLE (FLAGYL) 500MG TABLET PO SCH ×3 (09:50→20:21)
[2020-04-21] MEDS: FUROSEMIDE 40 MG TAB PO SCH (09:50)
[2020-04-21] MEDS: DOCUSATE SODIUM 100MG CAPSULE PO SCH ×2 (09:50→20:21)
[2020-04-21] MEDS: rOPINIRole 0.25 MG TAB(REQUIP) PO SCH (09:50)
[2020-04-21] MEDS: SITagliptin 50 MG TAB (JANUVIA) PO SCH (09:50)
[2020-04-21] MEDS: VITAMIN D 1,000 INTERNATIONAL UNITS TABLET PO SCH (09:50)
[2020-04-21] MEDS: ASPIRIN 81 MG ENTERIC TAB PO SCH (09:50)
[2020-04-21] MEDS: allopurinoL 100 MG TAB PO SCH (09:50)
[2020-04-21] MEDS: OMEPRAZOLE 20 MG CAP PO SCH (09:50)
[2020-04-21] MEDS: LEVEMIR (INSULIN DETEMIR) 1 UNITS/0.01ML SC SCH (09:51)
[2020-04-21] MEDS: MICONAZOLE 2 % POWDER (DESENEX) TOP SCH ×2 (09:51→20:22)
[2020-04-21] MEDS: HumaLOG INSULIN (NovoLOG) PER UNIT SC SCH ×4 (09:52→21:00)
[2020-04-21] MEDS: METOPROLOL TART 50 MG TAB PO SCH (09:54)
[2020-04-21] MEDS: RIVAROXABAN 20 MG TAB (XARELTO) PO SCH (18:11)
[2020-04-21] MEDS: ROSUVASTATIN 10 MG TAB (CRESTOR) PO SCH (20:21)
[2020-04-21] MEDS: SENNA 8.6 MG TAB (SENOKOT) PO SCH (20:21)
[2020-04-21] MEDS: SERTRALINE HCL 50 MG TAB PO SCH (20:21)
[2020-04-21] MEDS: LATANOPROST 0.005% OPHTH SOLN 2.5 ML OU SCH (20:22)
[2020-04-22 06:00] VITALS: BP 161/89
[2020-04-22] MEDS: LEVEMIR (INSULIN DETEMIR) 1 UNITS/0.01ML SC SCH ×2 (08:45→08:48)
[2020-04-22] MEDS: HumaLOG INSULIN (NovoLOG) PER UNIT SC SCH (08:45)
[2020-04-22] MEDS: VITAMIN D 1,000 INTERNATIONAL UNITS TABLET PO SCH (08:46)
[2020-04-22] MEDS: metroNIDAZOLE (FLAGYL) 500MG TABLET PO SCH (08:46)
[2020-04-22] MEDS: OMEPRAZOLE 20 MG CAP PO SCH (08:46)
[2020-04-22] MEDS: allopurinoL 100 MG TAB PO SCH (08:46)
[2020-04-22] MEDS: rOPINIRole 0.25 MG TAB(REQUIP) PO SCH (08:46)
[2020-04-22] MEDS: FUROSEMIDE 40 MG TAB PO SCH (08:46)
[2020-04-22] MEDS: ASPIRIN 81 MG ENTERIC TAB PO SCH (08:46)
[2020-04-22 08:47] VITALS: BP 177/79
[2020-04-22] MEDS: SITagliptin 50 MG TAB (JANUVIA) PO SCH (08:47)
[2020-04-22] MEDS: DOCUSATE SODIUM 100MG CAPSULE PO SCH (08:47)
[2020-04-22] MEDS: METOPROLOL TART 50 MG TAB PO SCH (08:47)
[2020-04-22] MEDS: MICONAZOLE 2 % POWDER (DESENEX) TOP SCH (08:49)
[2020-04-22] MEDS ORDERED: FLAG500T PO (10:52)
--- NOTE | 2020-04-24 09:55 | DS.PDOC ---
Discharge Summary General Date of Admission Apr 11, 2020 at 15:42 Date of Discharge 04/22/20 Discharge Summary PROCEDURES PERFORMED DURING STAY: Excisional debridement of skin and subcutaneous tissue at the groin incision. DISCHARGE DIAGNOSES: Left groin cellulitis w poor wound healing s/p L fempop bypass 03/25/20 status post left excisional debridement of skin and subcutaneous tissue at groin incision status post femoropopliteal bypass. SECONDARY DIAGNOSIS: PAD s/p right above knee amputation amputation after failed angioplasties and bypass. 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 S/p partial nephrectomy Lung nodule stable since 2012. Gout GERD depression Constipation Diverticulosis RLS COMPLICATIONS/CHIEF COMPLAINT: Non-Healing Graft Wound. HOSPITAL COURSE: 69 y/o F w h/o cva w right-sided hemiparesis and dysarthria., PAD, severe peripheral vascular disease and history of right AKA 2006, status post left lower extremity angiogram 01/09/20, no endovascular option for revascularization of her left femoral and SFA . She is status post left common femoral endarterectomy and left femoral to above-knee popliteal bypass with PTFE graft 03/25/20. Readmitted related to poor healing left groin incision s/p L f empop bypass 03/25/20. Status post excisional debridement and partial closure incision 04/11/[address] Bernardo. Status post wound VAC placement left groin and Unna boot replacement left lower extremity. The thigh incision had half the carolyn removed on 04/15/20, had blistered skin and skin tears from the tape around the incision which have almost healed. Left groin cellulitis w poor wound healing s/p L fempop bypass 03/25/20 Status post excisional debridement and partial closure incision 04/11/20, With wound vac placement. Medial portion of the incision that is closed with mattress sutures is healing well. The lateral portion of the incision that is open is now partially granulated, but no significant difference in size is noted. wound vac removed on 04/18/20 culture grew; Proteus, enterococcus, Prevotella, E coli. On Bactrim and metronidazole. PAD s/p right above knee amputation amputation after failed angioplasties and bypass. Left leg ischemia, stasis ulcers left lower extremity managed by vascular surgery Left leg venous stasis ulcers have almost closed now. Thigh incision healing slowly. every alternate carolyn have been removed. on po abx Fluid overload, resolved given Lasix and zaroxolyn with resolution will continue home lasix Morbid obesity complicating care Chronic atrial fibrillation rate controlled on metoprolol On xarelto Hyperlipidemia rosuvastatin Hypertension controlled on metoprolol DM with neuropathy consistent carbs sliding scale w coverage, levemir Januvia. 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 chronic S/p partial nephrectomy monitor creatinine. renally dosed meds and avoid dehydration Lung nodule stable since 2012. chronic Gout/hyperuricemia allopurinol GERD on ppi depression sertraline Constipation bowel regimen Diverticulosis no acute c/o RLS ropinirole DISCHARGE MEDICATIONS: Please see below. ALLERGIES: Please see below. PHYSICAL EXAMINATION ON DISCHARGE: VITAL SIGNS: Please see below. General: sitting up in bd in no distress, aaox 3 HEENT: NC, AT, moist mucous membranes, anicteric eyes. NECK: no cervical lad, short neck, No JVD appreciated. RESP: lungs CTAB, no wheeze, no rales, no crackles CVS: RRR, normal S1, S2, no murmurs ABD: soft, no masses, no hepatosplenomegaly, BS+, no rebound tenderness. Left groin with 6 cm x 2 cm open wound with granulation tissue at the bottom, clean. Medial part of the wound closed with mattress sutures. Extremities: Right AKA, no edema in left leg. healed stasis ulcer on the medial of left urrutia about 1x2 cm, Surgical incision in the left thigh with carolyn LABORATORY DATA: Please see below. ACTIVITY: [As tolerated]. DIET: Carb consistent DISPOSITION: [facility]. DISCHARGE INSTRUCTIONS: Dr Echeverria in 1 week please send in a stretcher. ITEMS TO FOLLOWUP ON ON OUTPATIENT: Daily wound dressing. 1. Groin wound: Thoroughly clean left groin, pat dry. Cut a piece of Hydrofera Blue to fit the open area and place that in the open area. Cover the Hydrofera Blue/open area and the medial sutures with dry gauze. Secure with a small amount of paper tape. Place a pillowcase or inter dry in the groin crease to prevent buildup of moisture. DISCHARGE CONDITION: [Stable]. TIME SPENT ON DISCHARGE: 35 minutes. Vital Signs/I&Os Vital Signs Date Time Temp Pulse Resp B/P (MAP) Pulse Ox O2 Delivery O2 Flow Rate FiO2 04/22/20 08:47 88 177/79 04/22/20 06:00 98.4 20 98 04/21/20 20:53 Room Air Discharge Medications Scheduled Acetaminophen (Mapap) 500 Mg Tablet, 1,000 MG PO QHS, (Reported) Allopurinol (Allopurinol) 100 Mg Tablet, 100 MG PO DAILY, (Reported) Aspirin (Aspirin) 81 Mg Tab.chew, 81 MG PO DAILY, (Reported) Cholecalciferol (Vitamin D3) (Vitamin D3) 1,000 Unit Tablet, 1,000 UNITS PO DAILY, (Reported) Ferrous Sulfate (Iron) 325 Mg Tablet, 325 MG PO DAILY, (Reported) Furosemide (Furosemide) 40 Mg Tab, 40 MG PO DAILY, (Reported) Icosapent Ethyl (Vascepa) 1 Gm Capsule, 2 GM PO BID, (Reported) Insulin Detemir (Levemir) 100 Unit/1 Ml Vial, 20 UNITS SC QAM, (Reported) Latanoprost (Xalatan) 0.005% 2.5ML Drops, 1 DROP OU QHS, (Reported) Metformin HCl (Metformin HCl) 500 Mg Tablet, 500 MG PO BID, (Reported) Metoprolol Tartrate (Metoprolol Tartrate) 50 Mg Tablet, 50 MG PO DAILY, (Rep orted) Metronidazole (Flagyl) 500 Mg Tablet, 500 MG PO TID for 2 days Miconazole Nitrate (Anti-Fungal Powder) 71 Gm Powder, 1 DOSE TOP BID, (Reported) APPLY TO ABDOMINAL FOLD Omeprazole (Omeprazole) 20 Mg Capsule.dr, 20 MG PO DAILY, (Reported) Rivaroxaban (Xarelto) 20 Mg Tablet, 20 MG PO DAILY, (Reported) Ropinirole HCl (Ropinirole HCl) 0.25 Mg Tab, 0.25 MG PO DAILY, (Reported) Rosuvastatin Calcium (Crestor) 20 Mg Tab, 20 MG PO QHS, (Reported) Senna (Senna Lax) 8.6 Mg Tablet, 17.2 MG PO QHS, (Reported) Sertraline HCl (Sertraline HCl) 50 Mg Tablet, 50 MG PO QHS, (Reported) Sitagliptin (Januvia) 50 Mg Tablet, 50 MG PO DAILY, (Reported) Scheduled PRN Acetaminophen (Acetaminophen) 325 Mg Tablet, 650 MG PO Q4H PRN for PAIN / FEVER, (Reported) Bisacodyl (Bisacodyl) 10 Mg Supp.rect, 10 MG PA DAILY PRN for CONSTIPATION, (Reported) Magnesium Hydroxide (Milk of Magnesia) 400 Mg/5 Ml Oral.susp, 30 ML PO DAILY PRN for CONSTIPATION, (Reported) Oxycodone HCl/Acetaminophen (Percocet 5-325 mg Tablet) 1 Each Tablet, 1 TAB PO Q4H PRN for PAIN, (Reported) Sodium Phosphate,Haskell-Dibasic (Enema) 133 Ml Enema, 1 OSMANY PA DAILY PRN for CONSTIPATION, (Reported) glucagon HCL (glucagon HCL) 1 Mg/1 Ml Vial, 1 MG IM PRN PRN for LOW BLOOD SUGAR, (Reported) Allergies Coded Allergies: Penicillins (Verified Allergy, Intermediate, mouth swelling, 03/11/20) VICENTE STEPHENS MD Apr 24, 2020 09:55
== END 2020-04-22 12:52 | DRG 902 ==
LOC: M MSPAV 15:42
PROVIDERS: ADMIT Family Medicine; ATTEND Internal Medicine Nephrology
PROC: 0JBC0ZZ Excision of Pelvic Region Subcutaneous Tissue and Fascia, Open Approach (ICD-10-PCS; principal; 2020-04-11 16:30)
DX: T81.89XA Other complications of procedures, not elsewhere classified, initial encounter (principal); I48.20 Chronic atrial fibrillation, unspecified; L03.314 Cellulitis of groin; I69.351 Hemiplegia and hemiparesis following cerebral infarction affecting right dominant side; Z68.42 Body mass index [BMI] 45.0-49.9, adult; I69.322 Dysarthria following cerebral infarction; E66.01 Morbid (severe) obesity due to excess calories; E87.70 Fluid overload, unspecified; E11.51 Type 2 diabetes mellitus with diabetic peripheral angiopathy without gangrene; I10 Essential (primary) hypertension; Z66 Do not resuscitate; L97.529 Non-pressure chronic ulcer of other part of left foot with unspecified severity; E78.5 Hyperlipidemia, unspecified; F41.9 Anxiety disorder, unspecified; F32.9 Major depressive disorder, single episode, unspecified; G25.81 Restless legs syndrome; I25.10 Atherosclerotic heart disease of native coronary artery without angina pectoris; Z89.611 Acquired absence of right leg above knee; Z87.891 Personal history of nicotine dependence; Z79.01 Long term (current) use of anticoagulants; Z79.84 Long term (current) use of oral hypoglycemic drugs; Z79.82 Long term (current) use of aspirin; Z79.899 Other long term (current) drug therapy; E11.40 Type 2 diabetes mellitus with diabetic neuropathy, unspecified; M10.9 Gout, unspecified; K21.9 Gastro-esophageal reflux disease without esophagitis; K59.00 Constipation, unspecified; Z88.0 Allergy status to penicillin

== ENCOUNTER → 2020-04-17 | Outpatient (REF) | payer MEDICAID, MEDICARE ==
[~2020-04-17] MED LIST changes: +DOXY100T2 PO; +FLAG500T PO; -LISI-538; -LISI-538 PO; +LISI20TA33; +LISI20TA33 PO
== END ==
PROVIDERS: ATTEND Internal Medicine
DX: Z20.822 Contact with and (suspected) exposure to COVID-19 (principal)

== ENCOUNTER → 2020-04-24 | Outpatient (REF) | payer MEDICARE, MEDICAID ==
[~2020-04-24] MED LIST changes: +LISI-538; +LISI-538 PO; -LISI20TA33; -LISI20TA33 PO
[2020-04-24 11:52] LABS: HEMATOCRIT 37.9 % (36.0-47.0); HEMOGLOBIN 11.2 g/dl (12.0-15.5); MEAN CORPUSCULAR HEMOGLOBIN 26.5 pg (27.0-33.0); MEAN CORPUSCULAR HGB CONC 29.6 g/dl (32.0-36.5); MEAN CORPUSCULAR VOLUME 89.8 fl (80.0-96.0); PLATELET COUNT, AUTOMATED 245 10^3/uL (150-450); RED BLOOD COUNT 4.22 10^6/uL (4.00-5.40); WHITE BLOOD COUNT 4.9 10^3/uL (4.0-10.0)
[2020-04-24 12:28] LABS: CREATININE FOR GFR 1.16 MG/DL (0.55-1.30); GLOMERULAR FILTRATION RATE 49.5 (>45); POTASSIUM SERUM 4.2 MEQ/L (3.5-5.1)
== END ==
PROVIDERS: ATTEND Internal Medicine
DX: I10 Essential (primary) hypertension (principal); Z20.822 Contact with and (suspected) exposure to COVID-19
CPT/HCPCS: 36415; 80048; 83880; 85027; U0003

== ENCOUNTER → 2020-05-01 | Outpatient (REF) ==
[~2020-05-01] MED LIST changes: -LISI-538; -LISI-538 PO; +LISI20TA33; +LISI20TA33 PO
[2020-05-01 09:41] LABS: HEMATOCRIT 38.9 % (36.0-47.0); HEMOGLOBIN 11.4 g/dl (12.0-15.5); MEAN CORPUSCULAR HEMOGLOBIN 25.9 pg (27.0-33.0); MEAN CORPUSCULAR HGB CONC 29.3 g/dl (32.0-36.5); MEAN CORPUSCULAR VOLUME 88.4 fl (80.0-96.0); PLATELET COUNT, AUTOMATED 289 10^3/uL (150-450)
[2020-05-01 10:23] LABS: BLOOD UREA NITROGEN 29 MG/DL (7-18); CALCIUM LEVEL 8.9 MG/DL (8.8-10.2); CARBON DIOXIDE LEVEL 26 MEQ/L (21-32); CHLORIDE LEVEL 103 MEQ/L (98-107); CREATININE FOR GFR 0.98 MG/DL (0.55-1.30); GLOMERULAR FILTRATION RATE > 60.0 (>45); GLUCOSE, FASTING 150 MG/DL (70-100); NT-PRO BNP 594 PG/ML (<125); POTASSIUM SERUM 3.7 MEQ/L (3.5-5.1); SODIUM LEVEL 141 MEQ/L (136-145)
== END ==
PROVIDERS: ATTEND Internal Medicine
DX: Z20.822 Contact with and (suspected) exposure to COVID-19 (principal)

== ENCOUNTER → 2020-05-08 | Outpatient (REF) | payer MEDICARE, MEDICAID ==
[2020-05-08 11:32] LABS: HEMATOCRIT 36.3 % (36.0-47.0); MEAN CORPUSCULAR HEMOGLOBIN 26.6 pg (27.0-33.0); MEAN CORPUSCULAR HGB CONC 30.3 g/dl (32.0-36.5); MEAN CORPUSCULAR VOLUME 87.9 fl (80.0-96.0); PLATELET COUNT, AUTOMATED 288 10^3/uL (150-450); RED BLOOD COUNT 4.13 10^6/uL (4.00-5.40); WHITE BLOOD COUNT 6.3 10^3/uL (4.0-10.0)
[2020-05-08 12:14] LABS: CREATININE FOR GFR 1.02 MG/DL (0.55-1.30); GLOMERULAR FILTRATION RATE 57.4 (>45); POTASSIUM SERUM 3.9 MEQ/L (3.5-5.1)
== END ==
PROVIDERS: ATTEND Internal Medicine
DX: I10 Essential (primary) hypertension (principal); Z20.822 Contact with and (suspected) exposure to COVID-19
CPT/HCPCS: 36415; 80048; 83880; 85027; U0003

== ENCOUNTER → 2020-05-15 | Outpatient (REF) | payer MEDICARE, MEDICAID | PROVIDERS: ATTEND Internal Medicine | DX: Z20.822 Contact with and (suspected) exposure to COVID-19 (principal) ==

== ENCOUNTER → 2020-05-22 | Outpatient (REF) | payer MEDICARE, MEDICAID | PROVIDERS: ATTEND Internal Medicine | DX: Z20.822 Contact with and (suspected) exposure to COVID-19 (principal) ==

== ENCOUNTER → 2020-05-28 | Outpatient (REF) ==
[2020-05-28 11:22] LABS: HEMOGLOBIN 11.4 g/dl (12.0-15.5); MEAN CORPUSCULAR HEMOGLOBIN 26.3 pg (27.0-33.0); MEAN CORPUSCULAR VOLUME 87.6 fl (80.0-96.0); PLATELET COUNT, AUTOMATED 346 10^3/uL (150-450); RED BLOOD COUNT 4.34 10^6/uL (4.00-5.40)
[2020-05-28 11:51] LABS: CALCIUM LEVEL 9.3 MG/DL (8.8-10.2); CREATININE FOR GFR 1.09 MG/DL (0.55-1.30); GLOMERULAR FILTRATION RATE 53.1 (>45); POTASSIUM SERUM 3.9 MEQ/L (3.5-5.1)
== END ==
PROVIDERS: ATTEND Internal Medicine
DX: K62.5 Hemorrhage of anus and rectum (principal)

== ENCOUNTER → 2020-05-29 | Outpatient (REF) | payer MEDICARE, MEDICAID | PROVIDERS: ATTEND Internal Medicine | DX: Z11.52 Encounter for screening for COVID-19 (principal) ==

== ENCOUNTER → 2020-05-30 | Outpatient (CLI) | payer MEDICARE, MEDICAID ==
--- NOTE | 2020-05-30 12:15 | REP ---
INDICATION: PAD, LEFT LEG. COMPARISON: 12/11/2019. TECHNIQUE: Real time infante scale and Duplex Doppler evaluation of the left lower extremity arterial vasculature using linear high frequency transducer. Study is limited due to body habitus and soft tissue scarring. FINDINGS: A patent femoral to popliteal bypass graft is noted, velocity in the proximal aspect 52 centimeter/second and distally 33 cm per 2nd. Diffuse monophasic waveforms are seen throughout the left lower extremity. The proximal superficial femoral artery is occluded. There is reversal of flow in the distal superficial femoral artery. At the level of the knee the [place] popliteal artery demonstrates slow velocity with high diastolic flow. Tibioperoneal trunk and posterior tibial artery could not be visualized. Heavy calcifications are seen in the anterior tibial artery but there is patent flow to the foot. PSV(cm/sec) Common femoral artery: 94 cm/s Profunda femoris artery: 400 cm/s Proximal superficial femoral artery: Occluded Mid superficial femoral artery: Occluded Distal superficial femoral artery: Reversed, 87 cm/s Popliteal artery: 20 cm/s Proximal HUDSON: 25 cm/s Tibioperoneal trunk: Not visualized Proximal BOBBIN PAINTER: Not visualized Distal BOBBIN PAINTER: Not visualized Distal HUDSON: 22 cm/s IMPRESSION: Patent femoral to popliteal bypass graft. Proximal superficial femoral artery occluded. Reversal of flow in the distal superficial femoral artery. Slow flow velocity in the [place] popliteal artery with high diastolic flow. <Electronically signed by Tiburcio Infante > 05/30/20 [id number]
== END ==
LOC: M RAD 10:24
PROVIDERS: ATTEND Physician Assistant
DX: I73.9 Peripheral vascular disease, unspecified (principal)

== ENCOUNTER → 2020-05-31 | Outpatient (REF) | payer MEDICARE, MEDICAID | PROVIDERS: ATTEND Internal Medicine | DX: K62.5 Hemorrhage of anus and rectum (principal) ==

== ENCOUNTER → 2020-06-01 | Outpatient (REF) | payer MEDICARE, MEDICAID | PROVIDERS: ATTEND Physician Assistant | DX: K62.5 Hemorrhage of anus and rectum (principal) ==

== ENCOUNTER 2020-06-07 10:58 | Emergency (ER) | payer MEDICARE, MEDICAID ==
[~2020-06-07] VITALS: Ht 142.2 cm; Wt 90.7 kg
[2020-06-07 11:52] LABS: BASO % 0.3 % (0.0-1.0); EOS # 0.2 10^3/uL (0.0-0.5); EOS % 1.8 % (0.0-3.0); HEMATOCRIT 35.1 % (36.0-47.0); HEMOGLOBIN 10.9 g/dl (12.0-15.5); LYMPH # 1.9 10^3/uL (1.5-5.0); LYMPH % 21.3 % (24.0-44.0); MEAN CORPUSCULAR HEMOGLOBIN 26.5 pg (27.0-33.0); MEAN CORPUSCULAR HGB CONC 31.1 g/dl (32.0-36.5); MEAN CORPUSCULAR VOLUME 85.4 fl (80.0-96.0); MONO # 0.7 10^3/uL (0.0-0.8); MONO % 8.3 % (2.0-8.0); NEUTROPHILS # 6.1 10^3/uL (1.5-8.5); PLATELET COUNT, AUTOMATED 318 10^3/uL (150-450); RED BLOOD COUNT 4.11 10^6/uL (4.00-5.40); WHITE BLOOD COUNT 8.9 10^3/uL (4.0-10.0)
[2020-06-07 12:08] LABS: INR 2.24; PROTHROMBIN TIME 25.3 SECONDS (12.5-14.3)
[2020-06-07 12:09] LABS: PARTIAL THROMBOPLASTIN TIME 46.6 SECONDS (24.2-38.5)
[2020-06-07] MEDS ORDERED: ACET-683 PO (12:09)
[2020-06-07 12:12] LABS: ERYTHROCYTE SEDIMENTATION RATE 40 mm/hr (0-30)
[2020-06-07 12:33] LABS: ALBUMIN 3.2 GM/DL (3.2-5.2); ALT/SGPT 24 U/L (12-78); BILIRUBIN,DIRECT < 0.1 MG/DL (0.0-0.2); BILIRUBIN,TOTAL 0.2 MG/DL (0.2-1.0); BLOOD UREA NITROGEN 21 MG/DL (7-18); C REACTIVE PROTEIN QUANTITATIV 0.77 MG/DL (0.00-0.30); CALCIUM LEVEL 8.8 MG/DL (8.8-10.2); CARBON DIOXIDE LEVEL 28 MEQ/L (21-32); CHLORIDE LEVEL 108 MEQ/L (98-107); CREATININE FOR GFR 0.86 MG/DL (0.55-1.30); GLOMERULAR FILTRATION RATE > 60.0 (>45); GLUCOSE, FASTING 136 MG/DL (70-100); POTASSIUM SERUM 4.8 MEQ/L (3.5-5.1); SODIUM LEVEL 140 MEQ/L (136-145); TOTAL PROTEIN 6.8 GM/DL (6.4-8.2)
--- NOTE | 2020-06-07 12:50 | REP ---
INDICATION: R/O DVT. COMPARISON: Comparison study December 04, 2019.. TECHNIQUE: Left lower extremity duplex venous scanning. FINDINGS: The deep veins are anechoic and fully compressible from the groin to the popliteal fossa in the left lower extremity. Color flow imaging is homogeneous. Spectral Doppler interrogation demonstrates intact respiratory variation in flow and normal manual augmentation of flow. There is no evidence of deep vein thrombosis. IMPRESSION: Negative left lower extremity duplex venous ultrasound. No evidence of deep vein thrombosis. <Electronically signed by Deshaun Rogers > 06/07/20 [id number]
[2020-06-07 13:08] LABS: RSV AMPLIFICATION NEGATIVE (NEGATIVE)
[2020-06-07] MEDS ORDERED: ISOVUE-370 76% 100ML VIAL As Ordered ONE (17:14)
--- NOTE | 2020-06-07 18:20 | REPVR ---
PROCEDURE INFORMATION: Exam: CTA Left Lower Extremity With Contrast Exam date and time: 06/07/2020 5:21 PM Age: 70 years old Clinical indication: Other: Arterial insufficiency TECHNIQUE: Imaging protocol: Computed tomographic angiography of the Left lower extremity with intravenous contrast. 3D rendering (Not supervised by radiologist): MIP and/or 3D reconstructed images were created by the technologist. Radiation optimization: All CT scans at this facility use at least one of these dose optimization techniques: automated exposure control; mA and/or kV adjustment per patient size (includes targeted exams where dose is matched to clinical indication); or iterative reconstruction. Contrast material: ISOVUE 370; Contrast volume: 100 ml; Contrast route: INTRAVENOUS (IV); COMPARISON: US UNI LOW EXTREM ARTERIAL LIMIT LEFT 05/30/2020 10:50 AM FINDINGS: Left iliac arteries: Mild atherosclerotic changes in the left external and internal iliac arteries without significant stenosis. Left femoral/popliteal arteries: Extensive atherosclerotic changes with severe narrowing throughout the elim ira superficial femoral artery on the left. Patent left femoral popliteal graft. Occluded left popliteal artery proximally which is reconstituted distally via collaterals. Left infrapopliteal arteries: No occlusion or significant stenosis. Right iliac arteries: Occluded right external iliac artery. Right femoral/popliteal arteries: Occluded right common femoral artery. Occluded right superficial femoral artery. Small branch collaterals arising from the profundus artery are demonstrated. Other arteries: Three-vessel runoff in the infrapopliteal arteries. Flow in the distal popliteal and peroneal arteries is thread-like. Bones/joints: Status post above the knee amputation on the right at mid thigh level. Soft tissues: Unremarkable. IMPRESSION: 1. Status post [id number] amputation on the right with occluded external iliac, common femoral, and superficial femoral arteries. Small branch collaterals from the profunda femoris demonstrated on the right. 2. Status post femoropopliteal graft on the left which is patent. Three-vessel attenuated runoff in the infrapopliteal arteries to the ankle. Electronically signed by: Gokul Hogue On 06/07/2020 18:20:45 PM
[2020-06-07 20:00] VITALS: BP 161/74
== END 2020-06-07 20:10 | disposition short-term general hospital (02) ==
LOC: M ED 10:58
DX: M62.269 Nontraumatic ischemic infarction of muscle, unspecified lower leg (principal); I48.91 Unspecified atrial fibrillation; E11.9 Type 2 diabetes mellitus without complications; I10 Essential (primary) hypertension; E66.01 Morbid (severe) obesity due to excess calories; G25.81 Restless legs syndrome; E78.5 Hyperlipidemia, unspecified; Z86.73 Personal history of transient ischemic attack (TIA), and cerebral infarction without residual deficits; M10.9 Gout, unspecified; I25.10 Atherosclerotic heart disease of native coronary artery without angina pectoris; I73.9 Peripheral vascular disease, unspecified; Z87.891 Personal history of nicotine dependence; I70.201 Unspecified atherosclerosis of native arteries of extremities, right leg; Z89.611 Acquired absence of right leg above knee; I70.91 Generalized atherosclerosis; Z95.820 Peripheral vascular angioplasty status with implants and grafts; Z79.84 Long term (current) use of oral hypoglycemic drugs; Z79.82 Long term (current) use of aspirin; Z79.899 Other long term (current) drug therapy; Z88.0 Allergy status to penicillin
CPT/HCPCS: 36415; 73706; 80048; 80076; 83605; 85025; 85610; 85652; 85730; 86140; 87040; 87631; 93041; 93971; 94760; 99285; Q9967

== ENCOUNTER 2020-06-17 15:23 | Emergency (ER) | payer MEDICARE, MEDICAID ==
[~2020-06-17] VITALS: Ht 152.4 cm; Wt 90.6 kg
[~2020-06-17 15:23] MED LIST changes: +ACET-683 PO
[2020-06-17] MEDS ORDERED: ONDANSETRON 4MG/2ML VIAL IV ONE (15:40)
[2020-06-17] MEDS: MORPHINE 2 MG/ML 1ML VIAL (J2270) IV PRN ×2 (16:01→18:42)
[2020-06-17 16:11] LABS: HEMATOCRIT 35.6 % (36.0-47.0); HEMOGLOBIN 10.8 g/dl (12.0-15.5); MEAN CORPUSCULAR HEMOGLOBIN 26.2 pg (27.0-33.0); MEAN CORPUSCULAR HGB CONC 30.3 g/dl (32.0-36.5); MEAN CORPUSCULAR VOLUME 86.2 fl (80.0-96.0); PLATELET COUNT, AUTOMATED 331 10^3/uL (150-450); RED BLOOD COUNT 4.13 10^6/uL (4.00-5.40); WHITE BLOOD COUNT 8.5 10^3/uL (4.0-10.0)
[2020-06-17 16:25] LABS: INR 1.87; PROTHROMBIN TIME 21.9 SECONDS (12.5-14.3)
[2020-06-17 16:26] LABS: PARTIAL THROMBOPLASTIN TIME 39.4 SECONDS (24.2-38.5)
[2020-06-17] MEDS ORDERED: ACIDCAP2 PO (17:31)
[2020-06-17] MEDS ORDERED: AMLO1TAB24 PO (17:31)
[2020-06-17] MEDS ORDERED: ROPI0.5T3 PO (17:31)
[2020-06-17] MEDS ORDERED: METO1TAB33 PO (17:31)
[2020-06-17 17:55] LABS: RSV AMPLIFICATION NEGATIVE (NEGATIVE)
[2020-06-17 18:39] VITALS: BP 186/79
== END 2020-06-17 18:45 | disposition short-term general hospital (02) ==
LOC: EDBD 15:23 → M ED 15:23
DX: M62.272 Nontraumatic ischemic infarction of muscle, left ankle and foot (principal); I48.91 Unspecified atrial fibrillation; I25.10 Atherosclerotic heart disease of native coronary artery without angina pectoris; E11.9 Type 2 diabetes mellitus without complications; I10 Essential (primary) hypertension; E78.5 Hyperlipidemia, unspecified; E66.9 Obesity, unspecified; Z86.73 Personal history of transient ischemic attack (TIA), and cerebral infarction without residual deficits; F32.9 Major depressive disorder, single episode, unspecified; Z79.82 Long term (current) use of aspirin; Z79.4 Long term (current) use of insulin; Z79.899 Other long term (current) drug therapy; Z88.0 Allergy status to penicillin
CPT/HCPCS: 80047; 84132; 85027; 85610; 85730; 86850; 86900; 86901; 87631; 96374; 96375; 96376; 99285; J2270; J2405

== ENCOUNTER → 2020-06-21 | Outpatient (REF) | payer MEDICARE, MEDICAID ==
[~2020-06-21] MED LIST changes: +ACIDCAP2 PO; +AMLO1TAB24 PO; +METO1TAB33 PO; +ROPI0.5T3 PO
== END ==
PROVIDERS: ATTEND Internal Medicine
DX: Z11.59 Encounter for screening for other viral diseases (principal)

== ENCOUNTER → 2020-06-26 | Outpatient (REF) ==
[~2020-06-26] MED LIST changes: +CYCL-707 PO; +MULT-90 PO; +OXYC1TAB23 PO; +ZOLO25TA PO; +ZOLO50TA PO
[2020-06-26 17:55] LABS: HEMATOCRIT 34.9 % (36.0-47.0); HEMOGLOBIN 10.6 g/dl (12.0-15.5); MEAN CORPUSCULAR HEMOGLOBIN 26.6 pg (27.0-33.0); MEAN CORPUSCULAR HGB CONC 30.4 g/dl (32.0-36.5); MEAN CORPUSCULAR VOLUME 87.5 fl (80.0-96.0); PLATELET COUNT, AUTOMATED 359 10^3/uL (150-450); RED BLOOD COUNT 3.99 10^6/uL (4.00-5.40)
[2020-06-26 18:09] LABS: INR 1.37; PROTHROMBIN TIME 17.1 SECONDS (12.5-14.3)
[2020-06-26 18:13] LABS: BLOOD UREA NITROGEN 21 MG/DL (7-18); CARBON DIOXIDE LEVEL 30 MEQ/L (21-32); CHLORIDE LEVEL 100 MEQ/L (98-107); GLOMERULAR FILTRATION RATE > 60.0 (>45); GLUCOSE, FASTING 156 MG/DL (70-100); POTASSIUM SERUM 3.8 MEQ/L (3.5-5.1); SODIUM LEVEL 137 MEQ/L (136-145)
== END ==
PROVIDERS: ATTEND Internal Medicine
DX: Z89.611 Acquired absence of right leg above knee (principal); Z11.59 Encounter for screening for other viral diseases

== ENCOUNTER 2020-06-28 09:33 | Inpatient (IN) | payer MEDICARE, MEDICAID ==
[~2020-06-28] VITALS: Ht 152.4 cm; Wt 88.5 kg
[2020-06-28] VITALS (7 sets, daily range): BP systolic 123–173; BP diastolic 59–78; O2SAT 98
[~2020-06-28 09:33] MED LIST changes: +LR 1,000 ML IV ONE; +VANCOMYCIN HCL 1,000 MG, VIAL MATE ADAPTER 1 EACH in NS 250 ML IV ONE
[2020-06-28] MEDS ORDERED: VANCOMYCIN 1000MG/20ML VIAL As Ordered ONE (10:04)
[2020-06-28 10:22] LABS: HEMATOCRIT 33.7 % (36.0-47.0); HEMOGLOBIN 10.1 g/dl (12.0-15.5); MEAN CORPUSCULAR HEMOGLOBIN 25.8 pg (27.0-33.0); MEAN CORPUSCULAR VOLUME 86.2 fl (80.0-96.0); PLATELET COUNT, AUTOMATED 340 10^3/uL (150-450); RED BLOOD COUNT 3.91 10^6/uL (4.00-5.40); WHITE BLOOD COUNT 10.2 10^3/uL (4.0-10.0)
[2020-06-28 10:32] LABS: INR 1.13; PARTIAL THROMBOPLASTIN TIME 35.6 SECONDS (24.2-38.5); PROTHROMBIN TIME 14.8 SECONDS (12.5-14.3)
[2020-06-28 10:51] LABS: BLOOD UREA NITROGEN 19 MG/DL (7-18); CALCIUM LEVEL 8.9 MG/DL (8.8-10.2); CARBON DIOXIDE LEVEL 30 MEQ/L (21-32); CHLORIDE LEVEL 102 MEQ/L (98-107); CREATININE FOR GFR 0.85 MG/DL (0.55-1.30); GLOMERULAR FILTRATION RATE > 60.0 (>45); GLUCOSE, FASTING 226 MG/DL (70-100); POTASSIUM SERUM 4.5 MEQ/L (3.5-5.1); SODIUM LEVEL 138 MEQ/L (136-145)
[2020-06-28] MEDS ORDERED: BUPIVACAINE/EPIN 0.5% 30 ML VIAL As Ordered ONE (11:04)
[2020-06-28] MEDS ORDERED: LIDOCAINE 2% 100MG/5ML SDV (FOR ANES.) As Ordered ONE (11:05)
[2020-06-28] MEDS ORDERED: fentaNYL 100 MCG/2 ML INJECTION (J3010) As Ordered ONE (11:05)
[2020-06-28] MEDS ORDERED: ETOMIDATE INJ 20MG/10ML VIAL As Ordered ONE (11:05)
[2020-06-28] MEDS ORDERED: propofoL 200 MG/20 ML VIAL As Ordered ONE ×2 (11:05→12:34)
[2020-06-28] MEDS ORDERED: MIDAZOLAM INJ 2MG/2ML VIAL (J2250 PER 1MG) As Ordered ONE (11:05)
[2020-06-28] MEDS ORDERED: ROCURONIUM BROMIDE 50 MG/5 ML VIAL As Ordered ONE (11:05)
[2020-06-28] MEDS ORDERED: ONDANSETRON 4MG/2ML VIAL As Ordered ONE (12:35)
[2020-06-28] MEDS ORDERED: PHENYLephrine 500MCG 5ML (100MCG/ML) SYRINGE As Ordered ONE (12:35)
[2020-06-28] MEDS ORDERED: SUGAMMADEX SODIUM 500 MG/5 ML VIAL (BRIDION) As Ordered ONE (12:35)
[2020-06-28] MEDS ORDERED: ePHEDrine SULFATE 25 MG/5 ML(5MG/ML) SYRINGE As Ordered ONE (12:51)
--- NOTE | 2020-06-28 13:24 | ROOPDOC ---
[facility] Report Of Operation Report of Operation DATE OF PROCEDURE: 06/28/20 PREPROCEDURE DIAGNOSES: Atherosclerosis in the [place] arteries with ischemia left calf and foot POSTPROCEDURE DIAGNOSES: Same PROCEDURE: Left above-knee amputation SURGEON: Vineet Bernardo MD ANESTHESIA: Gen. anesthesia and local anesthesia INDICATION FOR PROCEDURE: This is a very pleasant 70-year-old patient with long- standing history of severe vascular disease, distant history of right AKA, rec ent history of the left femoral above-knee pop bypass who developed tibial and pedal arterial occlusions resulting in ischemia of the left foot. Her bypass is still patent, but has sluggish flow due to limited outflow. She was seen while I was out of town in the ER 2, sent to [facility] both times, and the recommendation given to her was for left above-knee amputation. They did not feel there was an option for distal revascularization at the tibial and pedal level, and I agree with this based on her imaging and findings. Both times while she was in [place], she elected not to have the amputation and [facility]. She came to our clinic early this week requesting left above-knee amputation. We discussed the risks benefits and alternatives and she was agreeable to proceed. Informed consent was obtained. REPORT OF OPERATION: Patient was brought to the operating room in stable condition. Anesthesia and antibiotics were administered without complication. Her left lower extremity was prepped and draped in a sterile fashion. A timeout was performed. The patient is a very short and very obese, so a tourniquet was not used for this case. A [place] incision was fashioned with a marking pen and an incision was made with the skin knife. Bovie cautery was used for hemostasis from bridging veins and superficial veins. He continued or dissection down through the subcutaneous tissue and muscle anteriorly. The periosteum was incised and elevated proximally. We continued our dissection around the posterior soft tissue as well. We then identified the popliteal artery and vein and these were suture ligated and divided. The saphenous vein was not identified. Her bypass was not disturbed and left intact. Flow was present on Doppler in the bypass. Next, we transected the femur high with a slight anterior bevel. A rasp was used to smooth the bone. Bovie cautery was used to continue the amputation to the leg was freely and it was sent for pathology. We then used Bovie cautery for hemostasis. We irrigated with copious amounts of saline. The periosteum was closed over the bone with 20 [id number] Vicryl sutures. The anterior and posterior muscle fascia's were approximated with [id number] Vicryl sutures. The deep fascia was closed with [id number] Vicryl sutures. The superficial fascia was closed along the entire incision with [id number] Vicryl sutures taking care not to leave any gaps in the closure. We then approximated the skin edges with nylon mattress sutures. Between the nylon mattress sutures, carolyn were placed as a final skin closure. We cleaned and dried the incision and dressed the leg with Xeroform, 4 x 4's, Kerlix and Heriberto wraps. The patient was allowed to awaken from anesthesia and taken to recovery in stable condition. She tolerated the surgery well. ESTIMATED BLOOD LOSS: Approximately 50 mL. COMPLICATIONS: None. PLAN: The patient will be admitted to the hospitalist service. We will order physical and occupational therapy. We will start trying to mobilize her tomorrow. She will need a high protein diet to help with healing. The patient has difficulty healing due to her morbid obesity and multiple comorbidities. Ca reful wound care will be provided while she is in the hospital. Analgesia as needed. Elevate the stump to minimize swelling. Supportive care as needed. We appreciate the opportunity to participate in the care of this patient. VINEET BERNARDO MD Jun 28, 2020 13:24
[2020-06-28] MEDS ORDERED: PERCOCET 5MG/325MG TAB PO PRN (13:30)
[2020-06-28] MEDS ORDERED: ONDANSETRON 4MG/2ML VIAL IV PRN ×2 (13:30→13:45)
[2020-06-28] MEDS ORDERED: LR 1,000 ML IV SCH (13:45)
[2020-06-28] MEDS: fentaNYL 100 MCG/2 ML INJECTION (J3010) IV PRN ×4 (14:09→14:32)
[2020-06-28] MEDS: oxyCODONE 5MG TAB PO PRN ×2 (14:09→14:40)
[2020-06-28] MEDS: HYDROMORPHONE HCL 0.5 MG/ 0.5 ML SYRINGE (J1170 PER 1) IV PRN ×3 (15:19→16:06)
[2020-06-28] MEDS ORDERED: HYDROMORPHONE HCL 0.5 MG/ 0.5 ML SYRINGE (J1170 PER 1) IV PRN (15:25)
[2020-06-28] MEDS: PERCOCET 5MG/325MG TAB PO PRN ×2 (16:35→22:11)
[2020-06-28] MEDS: ROSUVASTATIN 10 MG TAB (CRESTOR) PO SCH (20:21)
[2020-06-28] MEDS ORDERED: SENNA 8.6 MG TAB (SENOKOT) PO SCH (21:00)
[2020-06-28] MEDS ORDERED: DEXTROSE 50% 50 ML SYRINGE IV PRN (21:25)
[2020-06-28] MEDS ORDERED: GLUCAGON INJ 1MG VIAL SC PRN (21:25)
[2020-06-28] MEDS ORDERED: GLUCOSE 4GM CHEW TABLET PO PRN (21:25)
--- NOTE | 2020-06-28 23:56 | HPEPDOC ---
General Date of Admission Jun 28, 2020 at 09:33 Date of Service: Jun 28, 2020 Chief Complaint The patient is a 70-year-old female admitted with a reason for visit of Atherosclerosis [facility] Lower Extremities. Source: Patient, RN/MD History of Present Illness 70 year old female with severe peripheral arterial disease with prior right AKA was having ischemic issues of her left leg for the past several months had failed angioplasties ultimately had left femoral above-knee pop bypass in march who developed tibial and pedal arterial occlusions resulting in ischemia of the left foot. Her bypass was still patent, but has sluggish flow due to limited outflow. She was being followed closely by Dr Echeverria. unfortunately she was seen in the ER [address] Echeverria ws out of town and sent to [place] both times, and the recommendation given to her was for left above-knee amputation. They did not feel there was an option for distal revascularization at the tibial and pedal level. Both times while she was in [place], she elected not to have the amputation and to return to the shelter. She came to our vascular clinic earlier this week requesting left above-knee amputation. Today she was admitted for left above knee amputation. Surgery was uneventful. She was seen in the PACU after surgery. She is still a little somnolent from the anesthesia. She complains of severe sharp pain at the left above knee amputation site. She rated it as 10/10. Home Medications Scheduled Acetaminophen (Acetaminophen) 500 Mg Tablet, 1,000 MG PO QHS, (Reported) Allopurinol (Allopurinol) 100 Mg Tablet, 100 MG PO DAILY, (Reported) Amlodipine Besylate (Amlodipine Besylate) 5 Mg Tablet, 5 MG PO DAILY, (Reported) Aspirin (Aspirin) 81 Mg Tab.chew, 81 MG PO DAILY, (Reported) Cholecalciferol (Vitamin D3) (Vitamin D3) 1,000 Unit Tablet, 1,000 UNITS PO DAILY, (Reported) Docusate Sodium (Colace) 100 Mg Capsule, 100 MG PO DAILY, (Reported) Ferrous Sulfate (Iron) 325 Mg Tablet, 325 MG PO DAILY, (Reported) Furosemide (Furosemide) 40 Mg Tab, 40 MG PO DAILY, (Reported) Icosapent Ethyl (Vascepa) 1 Gm Capsule, 2 GM PO BID, (Reported) Insulin Detemir (Levemir) 100 Unit/1 Ml Vial, 20 UNITS SC QAM, (Reported) Latanoprost (Xalatan) 0.005% 2.5ML Drops, 1 DROP OU QHS, (Reported) Lisinopril (Lisinopril) 20 Mg Tablet, 20 MG PO BID, (Reported) Metformin HCl (Metformin HCl) 500 Mg Tablet, 500 MG PO BID, (Reported) Metoprolol Succinate (Metoprolol Succinate) 100 Mg Tab.er.24h, 100 MG PO DAILY, (Reported) Miconazole Nitrate (Anti-Fungal Powder) 71 Gm Powder, 1 DOSE TOP BID, (Reported) APPLY TO ABDOMINAL FOLD Multivitamin (Multivitamin) 1 Each Tablet, 1 EACH PO DAILY, (Reported) Omeprazole (Omeprazole) 20 Mg Capsule.dr, 20 MG PO DAILY, (Reported) Rivaroxaban (Xarelto) 20 Mg Tablet, 20 MG PO DAILY, (Reported) Ropinirole HCl (Ropinirole HCl) 0.5 Mg Tablet, 0.5 MG PO QHS, (Reported) Rosuvastatin Calcium (Crestor) 20 Mg Tab, 20 MG PO QHS, (Reported) Senna (Senna Lax) 8.6 Mg Tablet, 8.6 MG PO QHS, (Reported) Sertraline Hcl (Zoloft) 25 Mg Tablet, 25 MG PO QHS, (Reported) 75MG TOTAL DAILY Sertraline Hcl (Zoloft) 50 Mg Tablet, 50 MG PO QHS, (Reported) 75MG TOTAL DAILY Sitagliptin (Januvia) 50 Mg Tablet, 50 MG PO DAILY, (Reported) Scheduled PRN Acetaminophen (Acetaminophen) 325 Mg Tablet, 650 MG PO Q4H PRN for PAIN / FEVER, (Reported) Bisacodyl (Bisacodyl) 10 Mg Supp.rect, 10 MG MA DAILY PRN for CONSTIPATION, (Reported) Cyclobenzaprine HCl (Cyclobenzaprine HCl) 10 Mg Tablet, 10 MG PO TID PRN for MUSCLE SPASMS, (Reported) Magnesium Hydroxide (Milk of Magnesia) 400 Mg/5 Ml Oral.susp, 30 ML PO DAILY PRN for CONSTIPATION, (Reported) Oxycodone HCl/Acetaminophen (Oxycodone-Acetaminophen 5-325) 1 Each Tablet, 1 TAB PO Q4-6HP PRN for PAIN, (Reported) Oxycodone HCl/Acetaminophen (Percocet 5-325 mg Tablet) 1 Each Tablet, 1 TAB PO BID PRN for PAIN, (Reported) Sodium Phosphate,Lagrange-Dibasic (Enema) 133 Ml Enema, 1 OSMANY MA DAILY PRN for CONSTIPATION, (Reported) glucagon HCL (glucagon HCL) 1 Mg/1 Ml Vial, 1 MG IM PRN PRN for LOW BLOOD SUGAR, (Reported) Allergies Coded Allergies: Penicillins (Verified Allergy, Intermediate, mouth swelling, 06/28/20) amoxicillin (Verified Allergy, Unknown, 06/28/20) cefazolin (Verified Allergy, Unknown, 06/28/20) ciprofloxacin (Verified Allergy, Unknown, 06/28/20) Past Medical History Medical History H/o Left groin cellulitis w poor wound healing s/p L fempop bypass 03/25/20, stat us post left excisional debridement of skin and subcutaneous tissue at groin incision status post femoropopliteal bypass. Left left ischemia s/p left common femoral endarterectomy and left fem-pop byp ass on 03/25/20 after failed angioplasties PAD s/p right above knee amputation amputation after failed angioplasties and bypass. 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 S/p partial nephrectomy Lung nodule stable since 2012. Gout GERD depression Constipation Diverticulosis RLS Surgical History Bilateral lower extremity angioplasties RIGHT FEMORAL TIBIAL ARTERY BYPASS 08/2016 Right varicose vein stripping. Right AKA Left CAROTID ENDARTERECTOMY Left fem- pop bypass, left femoral endarterectomy Family History Significant Family History: Diabetes (sibling), Heart disease (father) Social History * Smoker: former Smoker Alcohol: Denies Drugs: denies A-FIB/CHADSVASC A-FIB History Current/History of A-Fib/PAF?: Yes Current PO Anticoag Therapy: Yes Review of Systems Constitutional: Denies: Chills, Fever, Night Sweats Eyes: Denies: Pain, Vision change ENT: Denies: Head Aches, Ear Pain, Dysphagia Skin: Denies: Rash, Lesions, Breakdown Pulmonary: Denies: Dyspnea, Cough Cardiovascular: Denies: Chest Pain, Palpitations, Orthopnea, Paroxysmal Noc. Dyspnea, Lt Headedness Gastrointestinal: Denies: Nausea, Vomiting, Abdominal Pain, Diarrhea Musculoskeletal: Reports: Leg Pain Neurological: Reports: Change in speech Physical Examination General Exam: Positive: Cooperative, Mild Distress, Other (somnolent) Eye Exam: Positive: Conjunctiva & lids normal, EOMI ENT Exam: Positive: Atraumatic, Mucous membr. moist/pink Neck Exam: Positive: Supple Chest Exam: Positive: Clear to auscultation, Diminished (overall diminished breath sounds) Heart Exam: Positive: Rate Normal, Irregular Rhythm, Normal S1, Normal S2 Telemetry: Positive: Atrial fibrillation Abdomen Exam: Positive: BS Hypoactive, Soft, Other (obese); Negative: Tenderness Extremity Exam: Positive: Other (bilateral AKA) Neuro Exam: Positive: Other (aphasia, right hemiparesis) Vital Signs Vital Signs Date Time Temp Pulse Resp B/P (MAP) Pulse Ox O2 Delivery O2 Flow Rate FiO2 06/28/20 22:11 20 97 Nasal Cannula 2.0 06/28/20 20:45 98.0 83 123/68 (86) Laboratory Data Labs 24H Laboratory Tests 2 06/28/20 10:03: Nucleated Red Blood Cells % (auto) 0.0, Prothrombin Time 14.8H, Prothromb Time International Ratio 1.13, Activated Partial Thromboplast Time 35.6, Anion Gap 6L, Glomerular Filtration Rate > 60.0, Calcium Level 8.9 06/28/20 13:22: Bedside Glucose (Misc Panel) 167H 06/28/20 20:05: Bedside Glucose (Misc Panel) 181H CBC/BMP Laboratory Tests 06/28/20 10:03 Assessment/Plan 70 year old female with severe peripheral arterial disease with prior right AKA was having ischemic issues of her left leg for the past several months had failed angioplasties ultimately had left femoral above-knee pop bypass in march who developed tibial and pedal arterial occlusions resulting in ischemia of the left foot. Her bypass was still patent, but has sluggish flow due to limited outflow. She was being followed closely by Dr Echeverria. unfortunately she was seen in the ER [address] Echeverria ws out of town and sent to [place] both times, and the recommendation given to her was for left above-knee amputation. They did not feel there was an option for distal revascularization a t the tibial and pedal level. Both times while she was in [place], she elected not to have the amputation and to return to the shelter. She came to our vascular clinic earlier this week requesting left above-knee amputation. Today she was admitted for left above knee amputation. PAD with left new AKA and has old right AKA pain meds activity and dressing as per Dr Echeverria. continue ASA. can start xarelto tomorrow PT/OT as per Dr Echeverria. Chronic Atrial fibrillation rate controlled will continue metoprolol and xarelto from tomorrow Hypertension BP well controlled will continue metoprolol and amlodipine will hold lisinopril will restart as needed Diabetes continue Januvia, levemir at lower dose and lispro as per sliding scale FS Ac and HS. 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 Gout allopurinol GERD PPI Depression sertraline Glaucoma continue home eye drops. Plan / VTE VTE Prophylaxis Ordered?: No (Bilateral AKAs) VICENTE STEPHENS MD Jun 28, 2020 23:56
[2020-06-29] VITALS (7 sets, daily range): BP systolic 113–167; BP diastolic 61–89; O2SAT 95–96
[2020-06-29] MEDS: SENOKOT S TAB PO SCH ×3 (00:08→21:11)
[2020-06-29] MEDS: PERCOCET 5MG/325MG TAB PO PRN ×3 (02:18→21:12)
[2020-06-29] MEDS: HYDROmorphone 2 MG TAB PO PRN ×2 (05:40→13:59)
[2020-06-29 06:11] LABS: HEMATOCRIT 30.8 % (36.0-47.0); HEMOGLOBIN 9.2 g/dl (12.0-15.5); MEAN CORPUSCULAR HEMOGLOBIN 26.3 pg (27.0-33.0); MEAN CORPUSCULAR HGB CONC 29.9 g/dl (32.0-36.5); PLATELET COUNT, AUTOMATED 326 10^3/uL (150-450); WHITE BLOOD COUNT 11.7 10^3/uL (4.0-10.0)
[2020-06-29 06:43] LABS: BLOOD UREA NITROGEN 12 MG/DL (7-18); CALCIUM LEVEL 8.6 MG/DL (8.8-10.2); CARBON DIOXIDE LEVEL 30 MEQ/L (21-32); CHLORIDE LEVEL 101 MEQ/L (98-107); CREATININE FOR GFR 0.78 MG/DL (0.55-1.30); GLOMERULAR FILTRATION RATE > 60.0 (>45); GLUCOSE, FASTING 234 MG/DL (70-100); POTASSIUM SERUM 4.8 MEQ/L (3.5-5.1); SODIUM LEVEL 135 MEQ/L (136-145)
--- NOTE | 2020-06-29 07:58 | IPNPDOC ---
Subjective Date Seen The patient was seen on 06/29/20. Subjective Chief Complaint/HPI Awake and alert . Reports the night has been so - so. The amputation site was bothering her all night but after her got some meds early in the morning now its feeling better. pain appears to be controlled at this time. Surgical dressing clean and dry. nurse reported that last evening she was having some suicidal thoughts but she said she would never commit a suicide. This morning she was in a good mood. With her tough situation as a bilateral amputee it is not unusual to have depression and feeling low and down off and on. We would try to keep her cheerful and motivated. Objective Physical Examination General Exam: Positive: Alert, Cooperative, No Acute Distress Eye Exam: Positive: Conjunctiva & lids normal, EOMI ENT Exam: Positive: Atraumatic, Mucous membr. moist/pink Neck Exam: Positive: Supple Chest Exam: Positive: Clear to auscultation, Diminished (overall diminished breath sounds) Heart Exam: Positive: Rate Normal, Irregular Rhythm, Normal S1, Normal S2 Telemetry: Positive: Atrial fibrillation Abdomen Exam: Positive: BS Hypoactive, Soft, Other (obese); Negative: Tenderness Extremity Exam: Positive: Other (bilateral AKA) Neuro Exam: Positive: Other (aphasia, right hemiparesis) Assessment /Plan Assessment 70 year old female with severe peripheral arterial disease with prior right AKA was having ischemic issues of her left leg for the past several months had failed angioplasties ultimately had left femoral [place] [facility] who developed tibial and pedal arterial occlusions resulting in ischemia of the left foot. Her bypass was still patent, but has sluggish flow due to limited outflow. She was being followed closely by Dr Echeverria. unfortunately she was seen in the ER [address] Echeverria ws out of town and sent to [place] both times, and the recommendation given to her was for left above-knee amputation. Edvin lynch did not feel there was an option for distal revascularization at the tibial and pedal level. Both times while she was in [place], she elected not to have the amputation and to [facility]. She came to our vascular clinic earlier this week requesting left above-knee amputation. Today she was admitted for left above knee amputation. PAD with left new AKA and has old right AKA pain meds activity and dressing as per Dr Echeverria. continue ASA. Can start xarelto. PT/OT as per Dr Echeverria. Chronic Atrial fibrillation rate controlled will continue metoprolol and xarelto Hypertension BP well controlled will continue metoprolol and amlodipine will hold lisinopril will restart as needed Diabetes continue Januvia, levemir at lower dose and lispro as per sliding scale FS Ac and HS. 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 Gout allopurinol GERD PPI Depression sertraline Glaucoma continue home eye drops. Intertriginous candidiasis in the abdominal folds Nystatin powder. Plan/VTE VTE Prophylaxis Ordered?: Yes VS, I&O, 24H, Fishbone Vital Signs/I&O Vital Signs Date Time Temp Pulse Resp B/P (MAP) Pulse Ox O2 Delivery O2 Flow Rate FiO2 06/29/20 06:10 20 96 Nasal Cannula 2.0 06/29/20 06:00 98.5 100 167/74 (105) I&O- Last 24 Hours up to 6 AM 06/29/20 06:00 Intake Total 2230 ml Output Total 50 ml Balance 2180 ml Laboratory Data 24H LABS Laboratory Tests 2 06/28/20 10:03: Nucleated Red Blood Cells % (auto) 0.0, Prothrombin Time 14.8H, Prothromb Time International Ratio 1.13, Activated Partial Thromboplast Time 35.6, Anion Gap 6L, Glomerular Filtration Rate > 60.0, Calcium Level 8.9 06/28/20 13:22: Bedside Glucose (Misc Panel) 167H 06/28/20 20:05: Bedside Glucose (Misc Panel) 181H 06/29/20 06:00: Nucleated Red Blood Cells % (auto) 0.0, Anion Gap 4L, Glomerular Filtration Rate > 60.0, Calcium Level 8.6L CBC/BMP Laboratory Tests 06/28/20 10:03 06/29/20 06:00 VICENTE STEPHENS MD Jun 29, 2020 07:58
[2020-06-29] MEDS ORDERED: DOCUSATE SODIUM 100MG CAPSULE PO SCH (09:00)
[2020-06-29] MEDS ORDERED: LEVEMIR (INSULIN DETEMIR) 1 UNITS/0.01ML SC SCH ×2 (09:00)
[2020-06-29] MEDS: SITagliptin 50 MG TAB (JANUVIA) PO SCH (09:55)
[2020-06-29] MEDS: SERTRALINE HCL 25 MG TABLET PO SCH (09:55)
[2020-06-29] MEDS: OMEPRAZOLE 20 MG CAP PO SCH (09:55)
[2020-06-29] MEDS: SERTRALINE HCL 50 MG TAB PO SCH (09:55)
[2020-06-29] MEDS: allopurinoL 100 MG TAB PO SCH (09:56)
[2020-06-29] MEDS: METOPROLOL SUCC (TopROL XL) 100MG *XL* TAB PO SCH (09:56)
[2020-06-29] MEDS: BISACODYL 10 MG SUPP PR SCH (09:56)
[2020-06-29] MEDS: amLODIPine 5 MG TAB PO SCH (09:56)
[2020-06-29] MEDS: ASPIRIN 81 MG CHEW TABLET PO SCH (09:56)
[2020-06-29] MEDS: MOM 30ML SUSPENSION UDC PO SCH (09:57)
[2020-06-29] MEDS: NYSTATIN 100,000 UNITS/GM TOPICAL PWD 15 GM TOP SCH ×3 (10:00→21:11)
--- NOTE | 2020-06-29 12:42 | IPNPDOC ---
Date Seen The patient was seen on 06/29/20. Progress Note Patient seen and examined postop day 1 status post left above-knee amputation. She is doing well today. She discussed with the staff that she had some suicidal ideations yesterday, but she says she feels pretty good now today. She is smiling and joking around with me while I changed her dressing, but I do anticipate her to have some waxing and waning depression now that she is a bilateral lower extremity amputee. This certainly is not an easy road for her, especially after everything we went through to try to save her left leg. I tried to encourage her as much as possible, and we'll continue to do so. On exam, the left AKA stump is clean dry and intact. There is minimal bruising in the mid inferior aspect, a minimal amount of sanguinous drainage near the same area, but otherwise no active bleeding or drainage. The incision was thoroughly cleaned, Xeroform, 4 x 4's, Kerlix, Heriberto wraps were placed. The patient actually was able to support her leg Helping with the dressing change and she did very well. Her bypass still has a signal, although it is monophasic. I'm not sure there is enough popliteal retrograde outflow to keep it patent, but it certainly will help the stump to heal if it remains patent in the immediate postop period. Our plan will be continue with daily dressing changes. Eventually, the plan will be for carolyn to come out in 2-3 weeks, and sutures in 3-4 weeks. We like them to come out a week apart. We like the patient to continue with PT OT. She said today they came but she did not get out of bed or sit up with them. She said possibly tomorrow she will do more. An ARU consult has been ordered. We appreciate the opportunity to participate in the care of this patient. VS, I&O, 24H, Fishbone Vital Signs/I&O Vital Signs Date Time Temp Pulse Resp B/P (MAP) Pulse Ox O2 Delivery O2 Flow Rate FiO2 06/29/20 10:25 18 96 Nasal Cannula 2.0 06/29/20 10:00 98.6 113 113/61 (78) I&O- Last 24 Hours up to 6 AM 06/29/20 06:00 Intake Total 2230 ml Output Total 50 ml Balance 2180 ml Laboratory Data 24H LABS Laboratory Tests 2 06/28/20 13:22: Bedside Glucose (Misc Panel) 167H 06/28/20 20:05: Bedside Glucose (Misc Panel) 181H 06/29/20 06:00: Nucleated Red Blood Cells % (auto) 0.0, Anion Gap 4L, Glomerular Filtration Rate > 60.0, Calcium Level 8.6L 06/29/20 11:30: Bedside Glucose (Misc Panel) 265H CBC/BMP Laboratory Tests 06/29/20 06:00 VINEET OLIVO MD Jun 29, 2020 12:42
[2020-06-29] MEDS: ROSUVASTATIN 10 MG TAB (CRESTOR) PO SCH (21:11)
[2020-06-30] MEDS: HYDROmorphone 2 MG TAB PO PRN ×3 (00:57→22:17)
[2020-06-30] MEDS: PERCOCET 5MG/325MG TAB PO PRN ×4 (04:00→20:59)
[2020-06-30 06:00] VITALS: BP 159/62
[2020-06-30 09:00] VITALS: O2SAT 95
[2020-06-30] MEDS: BISACODYL 10 MG SUPP PR SCH (09:00)
[2020-06-30] MEDS: ASPIRIN 81 MG CHEW TABLET PO SCH (09:54)
[2020-06-30] MEDS: SITagliptin 50 MG TAB (JANUVIA) PO SCH (09:56)
[2020-06-30] MEDS: SENOKOT S TAB PO SCH ×2 (09:56→20:58)
[2020-06-30] MEDS: allopurinoL 100 MG TAB PO SCH (09:57)
[2020-06-30] MEDS: SERTRALINE HCL 50 MG TAB PO SCH (09:57)
[2020-06-30] MEDS: SERTRALINE HCL 25 MG TABLET PO SCH (09:57)
[2020-06-30] MEDS: FUROSEMIDE 40 MG TAB PO SCH (09:57)
[2020-06-30] MEDS: OMEPRAZOLE 20 MG CAP PO SCH (09:57)
[2020-06-30] MEDS: MOM 30ML SUSPENSION UDC PO SCH (09:57)
[2020-06-30] MEDS: LEVEMIR (INSULIN DETEMIR) 1 UNITS/0.01ML SC SCH (10:00)
[2020-06-30] MEDS: amLODIPine 5 MG TAB PO SCH (10:01)
[2020-06-30] MEDS: HumaLOG INSULIN (NovoLOG) PER UNIT SC SCH ×4 (10:01→20:58)
[2020-06-30] MEDS: METOPROLOL SUCC (TopROL XL) 100MG *XL* TAB PO SCH (10:02)
[2020-06-30] MEDS: NYSTATIN 100,000 UNITS/GM TOPICAL PWD 15 GM TOP SCH ×2 (10:04→20:58)
[2020-06-30 14:00] VITALS: BP 145/83
--- NOTE | 2020-06-30 17:51 | IPNPDOC ---
Subjective Date Seen The patient was seen on 06/30/20. Subjective Chief Complaint/HPI No complaints today. Comfortable, pain controlled. Smiling , mood is better. Objective Physical Examination General Exam: Positive: Alert, Cooperative, No Acute Distress Eye Exam: Positive: Conjunctiva & lids normal, EOMI ENT Exam: Positive: Atraumatic, Mucous membr. moist/pink Neck Exam: Positive: Supple Chest Exam: Positive: Clear to auscultation, Diminished (overall diminished breath sounds) Heart Exam: Positive: Rate Normal, Irregular Rhythm, Normal S1, Normal S2 Telemetry: Positive: Atrial fibrillation Abdomen Exam: Positive: BS Hypoactive, Soft, Other (obese); Negative: Tenderness Extremity Exam: Positive: Other (bilateral AKA) Skin Exam: Positive: Other skin issue (redness inthe abdominal folds and below the breasts. ) Neuro Exam: Positive: Other (aphasia, right hemiparesis) Assessment /Plan Assessment 70 year old female with severe peripheral arterial disease with prior right AKA was having ischemic issues of her left leg for the past several months had failed angioplasties ultimately had left femoral above-knee pop bypass in march who developed tibial and pedal arterial occlusions resulting in ischemia of the left foot. Her bypass was still patent, but has sluggish flow due to limited outflow. She was being followed closely by Dr Echeverria. unfortunately she was seen in the ER [address] Echeverria ws out of town and sent to [place] both times, and the recommendation given to her was for left above-knee amputation. They did not feel there was an option for distal revascularization at the tibial and pedal level. Both times while she was in [place], she elected not to have the amputation and to return to the residential. She came to our vascular clinic earlier this week requesting left above-knee amputation. Today she was admitted for left above knee amputation. PAD with left new AKA and has old right AKA pain meds activity and dressing as per Dr Echeverria. continue ASA. Can start xarelto. PT/OT as per Dr Echeverria. Chronic Atrial fibrillation rate controlled will continue metoprolol and xarelto Hypertension continue metoprolol and amlodipine will restart lisinopril as needed Diabetes continue Januvia, levemir at lower dose and lispro as per sliding scale FS Ac and HS. 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 Gout allopurinol GERD PPI Depression sertraline Glaucoma continue home eye drops. Intertriginous candidiasis in the abdominal folds Nystatin powder. Plan/VTE VTE Prophylaxis Ordered?: Yes VS, I&O, 24H, Fishbone Vital Signs/I&O Vital Signs Date Time Temp Pulse Resp B/P (MAP) Pulse Ox O2 Delivery O2 Flow Rate FiO2 06/30/20 15:52 18 96 Nasal Cannula 2.0 06/30/20 10:01 121 180/75 06/30/20 06:00 98.1 I&O- Last 24 Hours up to 6 AM 06/30/20 06:00 Intake Total 460 ml Balance 460 ml Laboratory Data 24H LABS Laboratory Tests 2 06/29/20 20:26: Bedside Glucose (Misc Panel) 211H 06/30/20 06:29: Bedside Glucose (Misc Panel) 220H 06/30/20 11:35: Bedside Glucose (Misc Panel) 294H 06/30/20 17:09: Bedside Glucose (Misc Panel) 121H VICENTE STEPHENS MD Jun 30, 2020 17:50
--- NOTE | 2020-06-30 20:10 | IPNPDOC ---
Date Seen The patient was seen on 06/30/20. Progress Note Patient doing well POD #2 s/p L AKA. Pain controlled. Mood improved. Appetite good. LLE stump intact. Will continue with local dressing changes. We appreciate the hospitalist's excellent care of this patient. VS, I&O, 24H, Fishbone Vital Signs/I&O Vital Signs Date Time Temp Pulse Resp B/P (MAP) Pulse Ox O2 Delivery O2 Flow Rate FiO2 06/30/20 18:47 18 98 Nasal Cannula 2.0 06/30/20 14:00 98.6 111 145/83 (103) I&O- Last 24 Hours up to 6 AM 06/30/20 09:00 Intake Total 460 ml Balance 460 ml Laboratory Data 24H LABS Laboratory Tests 2 06/29/20 20:26: Bedside Glucose (Misc Panel) 211H 06/30/20 06:29: Bedside Glucose (Misc Panel) 220H 06/30/20 11:35: Bedside Glucose (Misc Panel) 294H 06/30/20 17:09: Bedside Glucose (Misc Panel) 121H VINEET OLIVO MD Jun 30, 2020 20:10
[2020-06-30] MEDS: ROSUVASTATIN 10 MG TAB (CRESTOR) PO SCH (20:57)
[2020-06-30 22:00] VITALS: BP 141/84
[2020-07-01 04:07] VITALS: O2SAT 97
[2020-07-01] MEDS: PERCOCET 5MG/325MG TAB PO PRN ×3 (04:59→18:22)
[2020-07-01 06:00] VITALS: BP 148/62
[2020-07-01 06:25] LABS: BASO # 0.1 10^3/uL (0.0-0.2); BASO % 0.4 % (0.0-1.0); EOS # 0.1 10^3/uL (0.0-0.5); EOS % 1.2 % (0.0-3.0); LYMPH # 1.2 10^3/uL (1.5-5.0); LYMPH % 10.6 % (24.0-44.0); MEAN CORPUSCULAR HEMOGLOBIN 26.2 pg (27.0-33.0); MEAN CORPUSCULAR VOLUME 87.5 fl (80.0-96.0); MONO % 8.2 % (2.0-8.0); NEUTROPHILS # 9.1 10^3/uL (1.5-8.5); NEUTROPHILS % 79.1 % (36.0-66.0); PLATELET COUNT, AUTOMATED 316 10^3/uL (150-450); RED BLOOD COUNT 3.43 10^6/uL (4.00-5.40); WHITE BLOOD COUNT 11.6 10^3/uL (4.0-10.0)
[2020-07-01 06:52] LABS: BLOOD UREA NITROGEN 14 MG/DL (7-18); CALCIUM LEVEL 8.9 MG/DL (8.8-10.2); CARBON DIOXIDE LEVEL 30 MEQ/L (21-32); CHLORIDE LEVEL 100 MEQ/L (98-107); CREATININE FOR GFR 0.78 MG/DL (0.55-1.30); GLOMERULAR FILTRATION RATE > 60.0 (>45); GLUCOSE, FASTING 173 MG/DL (70-100); POTASSIUM SERUM 4.4 MEQ/L (3.5-5.1); SODIUM LEVEL 135 MEQ/L (136-145)
[2020-07-01] MEDS: ASPIRIN 81 MG CHEW TABLET PO SCH (08:56)
[2020-07-01] MEDS: allopurinoL 100 MG TAB PO SCH (08:56)
[2020-07-01] MEDS: SERTRALINE HCL 50 MG TAB PO SCH (08:57)
[2020-07-01] MEDS: RIVAROXABAN 20 MG TAB (XARELTO) PO SCH (08:57)
[2020-07-01] MEDS: OMEPRAZOLE 20 MG CAP PO SCH (08:57)
[2020-07-01] MEDS: FUROSEMIDE 40 MG TAB PO SCH (08:57)
[2020-07-01] MEDS: SENOKOT S TAB PO SCH ×2 (08:57→20:47)
[2020-07-01] MEDS: METOPROLOL SUCC (TopROL XL) 100MG *XL* TAB PO SCH (08:58)
[2020-07-01] MEDS: LEVEMIR (INSULIN DETEMIR) 1 UNITS/0.01ML SC SCH (08:58)
[2020-07-01] MEDS: HumaLOG INSULIN (NovoLOG) PER UNIT SC SCH ×4 (08:58→20:42)
[2020-07-01] MEDS: SERTRALINE HCL 25 MG TABLET PO SCH (08:59)
[2020-07-01] MEDS: MOM 30ML SUSPENSION UDC PO SCH (08:59)
[2020-07-01] MEDS: amLODIPine 5 MG TAB PO SCH (08:59)
[2020-07-01] MEDS: BISACODYL 10 MG SUPP PR SCH (09:00)
[2020-07-01] MEDS: NYSTATIN 100,000 UNITS/GM TOPICAL PWD 15 GM TOP SCH ×2 (09:00→20:49)
[2020-07-01] MEDS: SITagliptin 50 MG TAB (JANUVIA) PO SCH (09:02)
--- NOTE | 2020-07-01 10:57 | IPNPDOC ---
Text Note Date of Service The patient was seen on 07/01/20. NOTE Vascular Surgery Dr Bernardo. The pt is POD #3 s/p L AKA. Has been recovering well. Pain controlled. Appetite good. LLE stump intact. Sutures and carolyn intact. The incision was thoroughly cleaned. Xeroform, 4 x 4, Kerlix and Heriberto wrap reapplied. Continue to monitor healing. Encouraged protein to help with healing. Continue to monitor. VS,Fishbone, I+O VS, Fishbone, I+O Laboratory Tests 07/01/20 06:01 Vital Signs Date Time Temp Pulse Resp B/P (MAP) Pulse Ox O2 Delivery O2 Flow Rate FiO2 07/01/20 08:58 83 150/62 07/01/20 06:00 98.0 19 97 Nasal Cannula 2.0 I&O- Last 24 Hours up to 6 AM 07/01/20 06:00 Intake Total 1495 ml Balance 1495 ml Renetta Pantoja Jul 01, 2020 10:57
--- NOTE | 2020-07-01 13:18 | IPNPDOC ---
Subjective Date Seen The patient was seen on 07/01/20. Subjective Chief Complaint/HPI Patient feeling good today, Comfortable , pain controlled, mood good, smiling , had a good night. Objective Physical Examination General Exam: Positive: Alert, Cooperative, No Acute Distress Eye Exam: Positive: Conjunctiva & lids normal, EOMI ENT Exam: Positive: Atraumatic, Mucous membr. moist/pink Neck Exam: Positive: Supple Chest Exam: Positive: Clear to auscultation, Diminished (overall diminished breath sounds) Heart Exam: Positive: Rate Normal, Irregular Rhythm, Normal S1, Normal S2 Telemetry: Positive: Atrial fibrillation Abdomen Exam: Positive: Normal bowel sounds, Soft, Other (obese); Negative: Tenderness Extremity Exam: Positive: Other (bilateral AKA) Skin Exam: Positive: Other skin issue (redness inthe abdominal folds and below the breasts. ) Neuro Exam: Positive: Other (aphasia, right hemiparesis) Assessment /Plan Assessment 70 year old female with severe peripheral arterial disease with prior right AKA was having ischemic issues of her left leg for the past several months had failed angioplasties ultimately had left femoral above-knee pop bypass in march who developed tibial and pedal arterial occlusions resulting in ischemia of the left foot. Her bypass was still patent, but has sluggish flow due to limited outflow. She was being followed closely by Dr Echeverria. unfortunately she was seen in the ER [address] Echeverria was out of town and sent to [place] both times, and the recommendation given to her was for left above-knee amputation. They did not feel there was an option for distal revascularization at the tibial and pedal level. Both times while she was in [place], she elected not to have the amputation and to return to the care home. She came to our vascular clinic earlier this week requesting left above-knee amputation. Today she was admitted for left above knee amputation. PAD with left new AKA and has old right AKA Post op day #3. pain meds activity and dressing as per Dr Echeverria. continue ASA. Continue xarelto. PT/OT as per Dr Echeverria. Chronic Atrial fibrillation rate controlled will continue metoprolol and xarelto Hypertension continue metoprolol and amlodipine will restart lisinopril at lower dose. She may not need lower dosages of antihypertensives as now she has lower body mass with bilateral amputations. Diabetes continue Januvia, levemir at lower dose and lispro as per sliding scale FS Ac and HS. 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 Gout allopurinol GERD PPI Depression sertraline Glaucoma continue home eye drops. Intertriginous candidiasis in the abdominal folds Nystatin powder. Dispo : Back to [facility] when cleared by Dr Echeverria. Plan/VTE VTE Prophylaxis Ordered?: Yes VS, I&O, 24H, Fishbone Vital Signs/I&O Vital Signs Date Time Temp Pulse Resp B/P (MAP) Pulse Ox O2 Delivery O2 Flow Rate FiO2 07/01/20 13:00 18 07/01/20 09:00 2.0 07/01/20 08:58 83 150/62 07/01/20 06:00 98.0 97 Nasal Cannula I&O- Last 24 Hours up to 6 AM 07/01/20 06:00 Intake Total 1495 ml Balance 1495 ml Laboratory Data 24H LABS Laboratory Tests 2 06/30/20 17:09: Bedside Glucose (Misc Panel) 121H 06/30/20 20:07: Bedside Glucose (Misc Panel) 264H 07/01/20 06:01: Immature Granulocyte % (Auto) 0.5, Neutrophils (%) (Auto) 79.1H, Lymphocytes (%) (Auto) 10.6L, Monocytes (%) (Auto) 8.2H, Eosinophils (%) (Auto) 1.2, Basophils (%) (Auto) 0.4, Neutrophils # (Auto) 9.1H, Lymphocytes # (Auto) 1.2L, Monocytes # (Auto) 1.0H, Eosinophils # (Auto) 0.1, Basophils # (Auto) 0.1, Nucleated Red Blood Cells % (auto) 0.0, Anion Gap 5L, Glomerular Filtration Rate > 60.0, Calcium Level 8.9 07/01/20 12:39: Bedside Glucose (Misc Panel) 169H CBC/BMP Laboratory Tests 07/01/20 06:01 VICENTE STEPHENS MD Jul 01, 2020 13:18
[2020-07-01 14:00] VITALS: BP 156/63
[2020-07-01] MEDS: HYDROmorphone 2 MG TAB PO PRN (15:36)
[2020-07-01] MEDS: ROSUVASTATIN 10 MG TAB (CRESTOR) PO SCH (20:47)
[2020-07-01 22:00] VITALS: BP 155/82
[2020-07-02 06:00] VITALS: BP 189/93
[2020-07-02] MEDS: PERCOCET 5MG/325MG TAB PO PRN ×3 (06:05→18:52)
--- NOTE | 2020-07-02 07:39 | IPNPDOC ---
Date Seen The patient was seen on 07/02/20. Progress Note Patient seen and examined postop day 4 status post left AKA. She is doing well. Her mood is improved. She says she still has quite a bit of pain from time to time and is not quite ready to return to the residential. She says she thinks she will be ready to return tomorrow. Her incision is clean dry and intact. It was thoroughly cleaned and redressed. She tolerated this well and was able to elevate the stump for me during the dressing change. It was elevated on a pillow. There is minimal bruising on the inferior aspect of the incision medially and in the midportion, otherwise clean dry and intact. No drainage or bleeding noted. No erythema or induration noted, and swelling is minimal. From a vascular surgery standpoint, the patient is okay to return to the residential tomorrow. We will see her in the morning and change her dressing and make sure she is okay. We appreciate the opportunity to participate in the care of this patient. VS, I&O, 24H, Fishbone Vital Signs/I&O Vital Signs Date Time Temp Pulse Resp B/P (MAP) Pulse Ox O2 Delivery O2 Flow Rate FiO2 07/02/20 06:36 18 07/02/20 06:05 Nasal Cannula 2.0 07/01/20 22:00 98.0 79 155/82 (106) 94 I&O- Last 24 Hours up to 6 AM 07/02/20 06:00 Intake Total 960 ml Balance 960 ml Laboratory Data 24H LABS Laboratory Tests 2 07/01/20 12:39: Bedside Glucose (Misc Panel) 169H 07/01/20 16:44: Bedside Glucose (Misc Panel) 126H 07/01/20 20:14: Bedside Glucose (Misc Panel) 151H 07/02/20 06:06: Bedside Glucose (Misc Panel) 149H VINEET OLIVO MD Jul 02, 2020 07:38
[2020-07-02] MEDS: HumaLOG INSULIN (NovoLOG) PER UNIT SC SCH ×4 (08:06→20:03)
[2020-07-02] MEDS: amLODIPine 5 MG TAB PO SCH (08:07)
[2020-07-02] MEDS: ASPIRIN 81 MG CHEW TABLET PO SCH (08:07)
[2020-07-02] MEDS: SENOKOT S TAB PO SCH ×2 (08:07→20:01)
[2020-07-02] MEDS: LEVEMIR (INSULIN DETEMIR) 1 UNITS/0.01ML SC SCH (08:07)
[2020-07-02] MEDS: SERTRALINE HCL 25 MG TABLET PO SCH (08:07)
[2020-07-02] MEDS: METOPROLOL SUCC (TopROL XL) 100MG *XL* TAB PO SCH (08:07)
[2020-07-02] MEDS: NYSTATIN 100,000 UNITS/GM TOPICAL PWD 15 GM TOP SCH ×2 (08:08→20:04)
[2020-07-02] MEDS: SITagliptin 50 MG TAB (JANUVIA) PO SCH (08:08)
[2020-07-02] MEDS: RIVAROXABAN 20 MG TAB (XARELTO) PO SCH (08:08)
[2020-07-02] MEDS: MOM 30ML SUSPENSION UDC PO SCH (08:08)
[2020-07-02] MEDS: FUROSEMIDE 40 MG TAB PO SCH (08:08)
[2020-07-02] MEDS: OMEPRAZOLE 20 MG CAP PO SCH (08:08)
[2020-07-02] MEDS: SERTRALINE HCL 50 MG TAB PO SCH (08:08)
[2020-07-02] MEDS: allopurinoL 100 MG TAB PO SCH (08:08)
[2020-07-02] MEDS: BISACODYL 10 MG SUPP PR SCH ×2 (08:08→08:14)
[2020-07-02 14:00] VITALS: BP 131/70
--- NOTE | 2020-07-02 15:02 | IPNPDOC ---
Date Seen The patient was seen on 07/02/20. Progress Note SUBJECTIVE: Seen and examined at bedside. Doing well. No acute events overnight. Postop day 4 status post left AKA. In good spirits. OBJECTIVE PHYSICAL EXAMINATION: VITAL SIGNS: please see below General: NAD, comfortable HEENT: PERRLA, EOMI, sclerae clear Neck: supple, normal ROM, no JVD Respiratory: lungs CTAB, no wheeze, no rales, no crackles CVS: RRR, normal S1, S2, no murmurs Abdo: soft, no masses, no hepatosplenomegaly, BS+, no rebound tenderness MSK: bilateral AKA. Neuro: no focal neuro deficits, moving all 4 extremities, CN2-12 intact. Strength 5/5 in all 4 extremities. No nystagmus. Psych: calm, cooperative, AAO x 3 LABORATORY DATA, IMAGING STUDIES, MICROBIOLOGY: Please see below. Echocardiogram: . DVT prophylaxis ordered?: ASSESSMENT AND PLAN: 70 year old female with severe peripheral arterial disease with prior right AKA was having ischemic issues of her left leg for the past several months had failed angioplasties ultimately had left femoral above-knee pop bypass in march who developed tibial and pedal arterial occlusions resulting in ischemia of the left foot. Her bypass was still patent, but has sluggish flow due to limited outflow. She was being followed closely by Dr Echeverria. unfortunately she was seen in the ER [address] Echeverria was out of town and sent to [place] both times, and the recommendation given to her was for left above-knee amputation. They did not feel there was an option for distal revascularization at the tibial and pedal level. Both times while she was in [place], she elected not to have the amputation and to return to the longterm. She came to our vascular clinic earlier this week requesting left above- knee amputation. Today she was admitted for left above knee amputation. PROBLEMS: PAD with left new AKA and has old right AKA Post op day #4. pain meds activity and dressing as per Dr Echeverria. continue ASA. Continue xarelto. PT/OT as per Dr Echeverria. Chronic Atrial fibrillation rate controlled will continue metoprolol and xarelto Hypertension continue metoprolol and amlodipine will restart lisinopril at lower dose. She may not need lower dosages of antihypertensives as now she has lower body ma ss with bilateral amputations. Diabetes continue Januvia, levemir at lower dose and lispro as per sliding scale FS Ac and HS. 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 Gout allopurinol GERD PPI Depression sertraline Glaucoma continue home eye drops. Intertriginous candidiasis in the abdominal folds Nystatin powder. Dispo : Back to [facility] when cleared by Dr Echeverria. Notes reviewed, plan for DC on 07/03/20. VS, I&O, 24H, Fishbone Vital Signs/I&O Vital Signs Date Time Temp Pulse Resp B/P (MAP) Pulse Ox O2 Delivery O2 Flow Rate FiO2 07/02/20 14:00 98.2 84 18 131/70 (90) 94 Room Air 07/02/20 06:05 2.0 I&O- Last 24 Hours up to 6 AM 07/02/20 06:00 Intake Total 960 ml Balance 960 ml Laboratory Data 24H LABS Laboratory Tests 2 07/01/20 16:44: Bedside Glucose (Misc Panel) 126H 07/01/20 20:14: Bedside Glucose (Misc Panel) 151H 07/02/20 06:06: Bedside Glucose (Misc Panel) 149H 07/02/20 11:49: Bedside Glucose (Misc Panel) 219H 07/02/20 14:26: ЮЛИЯ STILL MD Jul 02, 2020 15:02
[2020-07-02] MEDS: ROSUVASTATIN 10 MG TAB (CRESTOR) PO SCH (20:02)
[2020-07-02 22:00] VITALS: BP 153/91
[2020-07-03 06:00] VITALS: BP 148/86
--- NOTE | 2020-07-03 07:51 | IPNPDOC ---
Date Seen The patient was seen on 07/03/20. Progress Note Patient seen and examined status post left AKA postoperative day 5 and is ready for discharge today. Her incision is clean dry and intact no drainage. She still has a little bit of bruising along the inferior edge, but this is all stable. No new ulcerations are open areas noted. No induration and erythema or drainage. The incision was thoroughly cleaned and dressed with Xeroform 4 x 4's Kerlix and Heriberto wrap. Patient tolerated this well. Dressing instructions were put into a nursing order to be sent to the [facility]. They she will need daily dressing changes. We'd like her to continue PT OT. We'd like her to continue a high protein diabetic diet to help with wound healing. She will need tight glucose control. She has difficulty healing, and we have gone over with her that she needs to encourage daily dressing changes and we would like to see her back in a week to check her incision and make sure things are going okay. We'll plan to take her carolyn out in clinic at 2-3 weeks postop, sutures out at 3-4 weeks postop. The patient understands. We appreciate the opportunity to participate in the care of this patient. VS, I&O, 24H, Fishbone Vital Signs/I&O Vital Signs Date Time Temp Pulse Resp B/P (MAP) Pulse Ox O2 Delivery O2 Flow Rate FiO2 07/02/20 22:00 98.7 98 18 153/91 (111) 97 Room Air 07/02/20 06:05 2.0 I&O- Last 24 Hours up to 6 AM 07/03/20 06:00 Intake Total 400 ml Output Total 0 ml Balance 400 ml Laboratory Data 24H LABS Laboratory Tests 2 07/02/20 11:49: Bedside Glucose (Misc Panel) 219H 07/02/20 14:26: Coronavirus (COVID-19)(PCR) NEGATIVE 07/02/20 16:45: Bedside Glucose (Misc Panel) 139H 07/02/20 19:52: Bedside Glucose (Misc Panel) 259H 07/03/20 06:23: Bedside Glucose (Misc Panel) 194H VINEET OLIVO MD Jul 03, 2020 07:51
--- NOTE | 2020-07-03 07:59 | DS.PDOC ---
Discharge Summary General Date of Admission Jun 28, 2020 at 09:33 Date of Discharge 07/03/20 Discharge Summary PROCEDURES PERFORMED DURING STAY: [None]. ADMITTING DIAGNOSES: 1. . DISCHARGE DIAGNOSES: 1. . COMPLICATIONS/CHIEF COMPLAINT: Atherosclerosis [place] Ira Vessels Lower Extremities. HISTORY OF PRESENT ILLNESS: . HOSPITAL COURSE: . DISCHARGE MEDICATIONS: Please see below. ALLERGIES: Please see below. PHYSICAL EXAMINATION ON DISCHARGE: VITAL SIGNS: Please see below. GENERAL: HEENT: NECK: CARDIOVASCULAR EXAMINATION: RESPIRATORY EXAMINATION: ABDOMINAL EXAMINATION: EXTREMITIES: SKIN: NEUROLOGICAL EXAMINATION: PSYCHIATRIC EXAMINATION: LABORATORY DATA: Please see below. IMAGING: PROGNOSIS: ACTIVITY: [As tolerated]. DIET: DISCHARGE PLAN: DISPOSITION: . DISCHARGE INSTRUCTIONS: 1. . ITEMS TO FOLLOWUP ON ON OUTPATIENT: 1. . DISCHARGE CONDITION: [Stable]. TIME SPENT ON DISCHARGE: Greater than minutes. Vital Signs/I&Os Vital Signs Date Time Temp Pulse Resp B/P (MAP) Pulse Ox O2 Delivery O2 Flow Rate FiO2 07/03/20 06:00 98.4 97 18 148/86 (106) 93 Room Air 07/02/20 06:05 2.0 I&O- Last 24 Hours up to 6 AM 07/03/20 06:00 Intake Total 460 ml Output Total 0 ml Balance 460 ml Laboratory Data Labs 24H Laboratory Tests 2 07/02/20 11:49: Bedside Glucose (Misc Panel) 219H 07/02/20 14:26: Coronavirus (COVID-19)(PCR) NEGATIVE 07/02/20 16:45: Bedside Glucose (Misc Panel) 139H 07/02/20 19:52: Bedside Glucose (Misc Panel) 259H 07/03/20 06:23: Bedside Glucose (Misc Panel) 194H FSBS Laboratory Tests Test 07/02/20 11:49 07/02/20 16:45 07/02/20 19:52 07/03/20 06:23 Range/Units Bedside Glucose (Misc Panel) 219 139 259 194 80-115 MG/DL Discharge Medications Scheduled Acetaminophen (Acetaminophen) 500 Mg Tablet, 1,000 MG PO QHS, (Reported) Allopurinol (Allopurinol) 100 Mg Tablet, 100 MG PO DAILY, (Reported) Amlodipine Besylate (Amlodipine Besylate) 5 Mg Tablet, 5 MG PO DAILY, (Reported) Aspirin (Aspirin) 81 Mg Tab.chew, 81 MG PO DAILY, (Reported) Cholecalciferol (Vitamin D3) (Vitamin D3) 1,000 Unit Tablet, 1,000 UNITS PO DAILY, (Reported) Docusate Sodium (Colace) 100 Mg Capsule, 100 MG PO DAILY, (Reported) Ferrous Sulfate (Iron) 325 Mg Tablet, 325 MG PO DAILY, (Reported) Furosemide (Furosemide) 40 Mg Tab, 40 MG PO DAILY, (Reported) Icosapent Ethyl (Vascepa) 1 Gm Capsule, 2 GM PO BID, (Reported) Insulin Detemir (Levemir) 100 Unit/1 Ml Vial, 20 UNITS SC QAM, (Reported) Latanoprost (Xalatan) 0.005% 2.5ML Drops, 1 DROP OU QHS, (Reported) Lisinopril (Lisinopril) 20 Mg Tablet, 20 MG PO BID, (Reported) Metformin HCl (Metformin HCl) 500 Mg Tablet, 500 MG PO BID, (Reported) Metoprolol Succinate (Metoprolol Succinate) 100 Mg Tab.er.24h, 100 MG PO DAILY, (Reported) Miconazole Nitrate (Anti-Fungal Powder) 71 Gm Powder, 1 DOSE TOP BID, (Reported) APPLY TO ABDOMINAL FOLD Multivitamin (Multivitamin) 1 Each Tablet, 1 EACH PO DAILY, (Reported) Omeprazole (Omeprazole) 20 Mg Capsule.dr, 20 MG PO DAILY, (Reported) Rivaroxaban (Xarelto) 20 Mg Tablet, 20 MG PO DAILY, (Reported) Ropinirole HCl (Ropinirole HCl) 0.5 Mg Tablet, 0.5 MG PO QHS, (Reported) Rosuvastatin Calcium (Crestor) 20 Mg Tab, 20 MG PO QHS, (Reported) Senna (Senna Lax) 8.6 Mg Tablet, 8.6 MG PO QHS, (Reported) Sertraline Hcl (Zoloft) 25 Mg Tablet, 25 MG PO QHS, (Reported) 75MG TOTAL DAILY Sertraline Hcl (Zoloft) 50 Mg Tablet, 50 MG PO QHS, (Reported) 75MG TOTAL DAILY Sitagliptin (Januvia) 50 Mg Tablet, 50 MG PO DAILY, (Reported) Scheduled PRN Acetaminophen (Acetaminophen) 325 Mg Tablet, 650 MG PO Q4H PRN for PAIN / FEVER, (Reported) Bisacodyl (Bisacodyl) 10 Mg Supp.rect, 10 MG MS DAILY PRN for CONSTIPATION, (Reported) Cyclobenzaprine HCl (Cyclobenzaprine HCl) 10 Mg Tablet, 10 MG PO TID PRN for MUSCLE SPASMS, (Reported) Magnesium Hydroxide (Milk of Magnesia) 400 Mg/5 Ml Oral.susp, 30 ML PO DAILY PRN for CONSTIPATION, (Reported) Oxycodone HCl/Acetaminophen (Oxycodone-Acetaminophen 5-325) 1 Each Tablet, 1 TAB PO Q4-6HP PRN for PAIN, (Reported) Oxycodone HCl/Acetaminophen (Percocet 5-325 mg Tablet) 1 Each Tablet, 1 TAB PO BID PRN for PAIN, (Reported) Sodium Phosphate,Mcduffie-Dibasic (Enema) 133 Ml Enema, 1 OSMANY MS DAILY PRN for CONSTIPATION, (Reported) glucagon HCL (glucagon HCL) 1 Mg/1 Ml Vial, 1 MG IM PRN PRN for LOW BLOOD SUGAR, (Reported) Allergies Coded Allergies: Penicillins (Verified Allergy, Intermediate, mouth swelling, 06/28/20) amoxicillin (Verified Allergy, Unknown, 06/28/20) cefazolin (Verified Allergy, Unknown, 06/28/20) ciprofloxacin (Verified Allergy, Unknown, 06/28/20) ЮЛИЯ STILL MD Jul 03, 2020 07:59
[2020-07-03] MEDS ORDERED: LISI10TA22 PO (08:14)
[2020-07-03] MEDS ORDERED: DEXT50SY3 IV (08:14)
[2020-07-03] MEDS: LEVEMIR (INSULIN DETEMIR) 1 UNITS/0.01ML SC SCH (08:55)
[2020-07-03] MEDS: NYSTATIN 100,000 UNITS/GM TOPICAL PWD 15 GM TOP SCH (08:57)
[2020-07-03] MEDS: MOM 30ML SUSPENSION UDC PO SCH (08:57)
[2020-07-03] MEDS: HumaLOG INSULIN (NovoLOG) PER UNIT SC SCH (08:57)
[2020-07-03] MEDS: SERTRALINE HCL 50 MG TAB PO SCH (08:58)
[2020-07-03] MEDS: RIVAROXABAN 20 MG TAB (XARELTO) PO SCH (08:58)
[2020-07-03] MEDS: ASPIRIN 81 MG CHEW TABLET PO SCH (08:58)
[2020-07-03] MEDS: SENOKOT S TAB PO SCH (08:58)
[2020-07-03] MEDS: FUROSEMIDE 40 MG TAB PO SCH (08:58)
[2020-07-03] MEDS: OMEPRAZOLE 20 MG CAP PO SCH (08:58)
[2020-07-03] MEDS: SERTRALINE HCL 25 MG TABLET PO SCH (08:58)
[2020-07-03] MEDS: allopurinoL 100 MG TAB PO SCH (08:59)
[2020-07-03] MEDS: SITagliptin 50 MG TAB (JANUVIA) PO SCH (08:59)
[2020-07-03] MEDS: BISACODYL 10 MG SUPP PR SCH (09:00)
[2020-07-03 09:02] VITALS: BP 177/92
[2020-07-03] MEDS: amLODIPine 5 MG TAB PO SCH (09:02)
[2020-07-03] MEDS: METOPROLOL SUCC (TopROL XL) 100MG *XL* TAB PO SCH (09:02)
[2020-07-03] MEDS: PERCOCET 5MG/325MG TAB PO PRN (09:02)
[2020-07-03 09:17] LABS: BASO # 0.1 10^3/uL (0.0-0.2); BASO % 0.5 % (0.0-1.0); EOS # 0.1 10^3/uL (0.0-0.5); EOS % 1.2 % (0.0-3.0); HEMATOCRIT 31.8 % (36.0-47.0); HEMOGLOBIN 9.7 g/dl (12.0-15.5); LYMPH # 0.9 10^3/uL (1.5-5.0); LYMPH % 9.2 % (24.0-44.0); MEAN CORPUSCULAR HEMOGLOBIN 26.1 pg (27.0-33.0); MEAN CORPUSCULAR HGB CONC 30.5 g/dl (32.0-36.5); MEAN CORPUSCULAR VOLUME 85.5 fl (80.0-96.0); MONO # 0.9 10^3/uL (0.0-0.8); MONO % 8.9 % (2.0-8.0); NEUTROPHILS # 7.8 10^3/uL (1.5-8.5); NEUTROPHILS % 79.5 % (36.0-66.0); PLATELET COUNT, AUTOMATED 412 10^3/uL (150-450); RED BLOOD COUNT 3.72 10^6/uL (4.00-5.40); WHITE BLOOD COUNT 9.8 10^3/uL (4.0-10.0)
[2020-07-03 09:29] LABS: BLOOD UREA NITROGEN 15 MG/DL (7-18); CALCIUM LEVEL 8.9 MG/DL (8.8-10.2); CARBON DIOXIDE LEVEL 27 MEQ/L (21-32); CHLORIDE LEVEL 103 MEQ/L (98-107); GLOMERULAR FILTRATION RATE > 60.0 (>45); GLUCOSE, FASTING 197 MG/DL (70-100); POTASSIUM SERUM 4.6 MEQ/L (3.5-5.1); SODIUM LEVEL 138 MEQ/L (136-145)
[2020-07-03 09:32] VITALS: BP 154/82
== END 2020-07-03 10:22 | DRG 240 ==
LOC: M OR 09:33 → M MSPAV 15:40
PROVIDERS: ADMIT Surgery Vascular Surgery; ATTEND Family Medicine
PROC: 0Y6J0Z1 Detachment at Left Lower Leg, High, Open Approach (ICD-10-PCS; principal; 2020-06-28 10:45)
DX: I70.202 Unspecified atherosclerosis of native arteries of extremities, left leg (principal); I48.20 Chronic atrial fibrillation, unspecified; R45.851 Suicidal ideations; Z79.899 Other long term (current) drug therapy; Z79.82 Long term (current) use of aspirin; Z88.0 Allergy status to penicillin; Z88.8 Allergy status to other drugs, medicaments and biological substances; K57.30 Diverticulosis of large intestine without perforation or abscess without bleeding; Z86.73 Personal history of transient ischemic attack (TIA), and cerebral infarction without residual deficits; E11.40 Type 2 diabetes mellitus with diabetic neuropathy, unspecified; E66.01 Morbid (severe) obesity due to excess calories; E78.5 Hyperlipidemia, unspecified; I10 Essential (primary) hypertension; M10.9 Gout, unspecified; K21.9 Gastro-esophageal reflux disease without esophagitis; K59.00 Constipation, unspecified; R91.1 Solitary pulmonary nodule; Z89.611 Acquired absence of right leg above knee; Z87.891 Personal history of nicotine dependence; H40.9 Unspecified glaucoma

== ENCOUNTER → 2020-07-09 | Outpatient (REF) ==
[~2020-07-09] MED LIST changes: +DEXT50SY3 IV; +LISI10TA22 PO; -LR 1,000 ML IV ONE; -VANCOMYCIN HCL 1,000 MG, VIAL MATE ADAPTER 1 EACH in NS 250 ML IV ONE
[2020-07-09 11:53] LABS: HEMATOCRIT 34.6 % (36.0-47.0); HEMOGLOBIN 10.3 g/dl (12.0-15.5); MEAN CORPUSCULAR HEMOGLOBIN 25.8 pg (27.0-33.0); MEAN CORPUSCULAR HGB CONC 29.8 g/dl (32.0-36.5); MEAN CORPUSCULAR VOLUME 86.5 fl (80.0-96.0); PLATELET COUNT, AUTOMATED 620 10^3/uL (150-450); WHITE BLOOD COUNT 10.6 10^3/uL (4.0-10.0)
[2020-07-09 12:19] LABS: BLOOD UREA NITROGEN 28 MG/DL (7-18); CALCIUM LEVEL 9.1 MG/DL (8.8-10.2); CARBON DIOXIDE LEVEL 23 MEQ/L (21-32); CHLORIDE LEVEL 102 MEQ/L (98-107); CREATININE FOR GFR 0.96 MG/DL (0.55-1.30); GLOMERULAR FILTRATION RATE > 60.0 (>45); GLUCOSE, FASTING 215 MG/DL (70-100); POTASSIUM SERUM 4.9 MEQ/L (3.5-5.1); SODIUM LEVEL 135 MEQ/L (136-145)
[2020-07-09 14:33] LABS: HEMOGLOBIN A1c 7.4 %
== END ==
PROVIDERS: ATTEND Internal Medicine
DX: E11.9 Type 2 diabetes mellitus without complications (principal); Z20.822 Contact with and (suspected) exposure to COVID-19

== ENCOUNTER → 2020-07-16 | Outpatient (REF) | payer MEDICARE, MEDICAID ==
[~2020-07-16] MED LIST changes: +ACET-897 PO; +BACITAB PO; +CLIN-30 PO; +GABA-1171 PO; +JUVEPOW4 PO
== END ==
LOC: M LAB REF 12:01
PROVIDERS: ATTEND Physician Assistant
DX: T81.49XD Infection following a procedure, other surgical site, subsequent encounter (principal); Z89.612 Acquired absence of left leg above knee; Y83.8 Other surgical procedures as the cause of abnormal reaction of the patient, or of later complication, without mention of misadventure at the time of the procedure

== ENCOUNTER → 2020-07-16 | Outpatient (REF) ==
[~2020-07-16] MED LIST changes: -ACET-897 PO; -BACITAB PO; -CLIN-30 PO; -GABA-1171 PO; -JUVEPOW4 PO
[2020-07-16 11:06] LABS: HEMATOCRIT 36.4 % (36.0-47.0); HEMOGLOBIN 10.9 g/dl (12.0-15.5); MEAN CORPUSCULAR HEMOGLOBIN 25.8 pg (27.0-33.0); MEAN CORPUSCULAR HGB CONC 29.9 g/dl (32.0-36.5); MEAN CORPUSCULAR VOLUME 86.3 fl (80.0-96.0); PLATELET COUNT, AUTOMATED 649 10^3/uL (150-450); RED BLOOD COUNT 4.22 10^6/uL (4.00-5.40); WHITE BLOOD COUNT 12.9 10^3/uL (4.0-10.0)
[2020-07-16 11:35] LABS: ERYTHROCYTE SEDIMENTATION RATE 87 mm/hr (0-30)
[2020-07-16 11:38] LABS: BLOOD UREA NITROGEN 28 MG/DL (7-18); CALCIUM LEVEL 9.1 MG/DL (8.8-10.2); CARBON DIOXIDE LEVEL 22 MEQ/L (21-32); CHLORIDE LEVEL 104 MEQ/L (98-107); GLOMERULAR FILTRATION RATE > 60.0 (>45); GLUCOSE, FASTING 152 MG/DL (70-100); POTASSIUM SERUM 4.4 MEQ/L (3.5-5.1); SODIUM LEVEL 138 MEQ/L (136-145)
== END ==
PROVIDERS: ATTEND Internal Medicine
DX: L08.9 Local infection of the skin and subcutaneous tissue, unspecified (principal); Z20.828 Contact with and (suspected) exposure to other viral communicable diseases

== ENCOUNTER 2020-07-18 14:19 | Inpatient (IN) | payer MEDICARE, MEDICAID ==
[~2020-07-18] VITALS: Ht 147.3 cm; Wt 80.7 kg
[2020-07-18] MEDS: VANCOMYCIN HCL 1,000 MG, VIAL MATE ADAPTER 1 EACH in NS 250 ML IV ONE ×2 (15:05→17:05)
--- NOTE | 2020-07-18 15:33 | REP ---
INDICATION: DYSPNEA/COUGH. COMPARISON: 04/14/2020. TECHNIQUE: Single portable AP view of the chest was performed. FINDINGS: There is no acute infiltrate or pulmonary edema. Cardiomegaly is unchanged. Mediastinal silhouette is unchanged. There are degenerative changes of the spine. IMPRESSION: No acute pulmonary disease.Cardiomegaly is stable. <Electronically signed by Tiburcio Infante > 07/18/20 1524
--- NOTE | 2020-07-18 15:48 | HPEPDOC ---
General Surgery H&P Date of Admission Jul 18, 2020 History and Physical Gen. surgery. Dr. Zaragoza. HISTORY OF PRESENT ILLNESS: The patient is a 70-year-old female with history of severe PAD, right AKA 2006, status post left AKA 06/28/[address] Bernardo. The patient was sent to the emergency room today from the care home porting worsening left AKA wound infection and drainage. The patient has been afebrile. She was seen in the office 07/16/20 at which time drainage was noted on the patient's dressings and wound culture was sent which is pending at this time. She was initially placed on oral doxycycline at her appointment 07/11/20 as incision was appearing erythematous. When she returned 07/16/20 her incision was looking much worse with increasing erythema and drainage noted on the dressing and at that time the patient was placed on antibiotics, Levaquin and clindamycin. Patient is noted to be allergic to penicillin which causes mouth swelling. Also listed in her allergies is amoxicillin, cefazolin, Cipro with unknown reactions. The patient has been given IV vancomycin in the emergency department. Gen. surgery is consulted for wound debridement. ALLERGIES: Please see below. HOME MEDICATIONS: Please see below. 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 Bernardo. PERSONAL/SOCIAL HISTORY: Former smoker Family history Father: due to Heart Attack. Mother: due to Unknown Causes. REVIEW OF SYSTEMS: Const: Denies weight gain and weight loss. Eyes: No vision changes ENMT: Denies hearing loss. Denies congestion. Denies dysphagia. CV: Denies palpitations. Resp: Denies cough and hemoptysis. GI: Denies abdominal pain, constipation, diarrhea, nausea and vomiting. Musculo: B/L AKA Skin: Denies skin cancer, rash and wound. Neuro: History of CVA, chronic right hemiparesis, dysarthria but communicates for herself and consents for herself. Psych: Denies anxiety and depression. Endocrine: Denies change in appetite, hair loss and tremor. Manuel/Lymph: Denies anemia and excessive bruising. PHYSICAL EXAMINATION: Const: NAD Head/Face: Normal on inspection. ENMT: Tympanic membranes: intact. External nose WNL. Neck: Supple, Resp: No wheezing. Clear to auscultation bilaterally. CV: Rate is regular. Rhythm is regular. Left AKA wound with carolyn and sutures intact. There is purulent drainage noted from the wound. There is increased erythema around the incision and stump, there is eschar, areas of blisters where the skin has sloughed off, tender around the incision. Abdomen: Soft, NT, ND, no guarding, rigidity, rebound. No organomegaly or palpable mass/aneurysm. Lymph: No palpable or visible regional lymphadenopathy. Musculo: Stretcher, B/L AKA Neuro: Alert and oriented x3, Psych: Pleasant and cooperative Wound culture 07/16/20 pending. IMPRESSION AND PLAN: Status post Left AKA 06/28/[address] Bernardo, with postop wound infection. Failed outpatient oral antibiotics. Plan to admit for IV antibiotics Plan for surgical debridement in the morning as per Dr. Zaragoza with wound VAC placement. Vital Signs Vital Signs Date Time Temp Pulse Resp B/P (MAP) Pulse Ox O2 Delivery O2 Flow Rate FiO2 07/18/20 14:42 97.5 91 20 120/58 (78) 98 Room Air Laboratory Data Labs 24H Item Value Date Time Sodium Level 135 MEQ/L L 07/18/20930 Potassium Level 4.2 MEQ/L 07/18/20930 Chloride Level 102 MEQ/L 07/18/20930 Carbon Dioxide Level 24 MEQ/L 07/18/20930 Anion Gap 9 MEQ/L 07/18/20930 Blood Urea Nitrogen 41 MG/DL H 07/18/2031 Creatinine 0.84 MG/DL 07/18/20930 Glomerular Filtration Rate > 60.0 07/18/20 09 Fasting Glucose 167 MG/DL H 07/18/20 0931 C-Reactive Protein, Quantitative 12.70 MG/DL H 07/18/20930 White Blood Count 10.8 10^3/uL H 4/930 Red Blood Count 3.76 10^6/uL L 07/18/20930 Hemoglobin 9.7 g/dl L 07/18/20930 Hematocrit 32.2 % L 07/18/20930 Mean Corpuscular Volume 85.6 fl 07/18/20930 Mean Corpuscular Hemoglobin 25.8 pg L 07/18/20930 Mean Corpuscular Hemoglobin Concent 30.1 g/dl L 07/18/20930 Red Cell Distribution Width 15.5 % H 07/18/20930 Platelet Count 572 10^3/uL H 07/18/20930 Nucleated Red Blood Cells % (auto) 0.0 % 07/18/20930 Erythrocyte Sedimentation Rate 97 mm/hr H 07/18/20930 Home Medications Scheduled Acetaminophen (Tylenol Extra Strength) 500 Mg Tablet, 1,000 MG PO TID, (Reported) Allopurinol (Allopurinol) 100 Mg Tablet, 100 MG PO DAILY, (Reported) Amlodipine Besylate (Amlodipine Besylate) 5 Mg Tablet, 5 MG PO DAILY, (Reported) Arginine/Glutamine/Calcium Bmb (Mango Packet) 1 Each Powd.pack, 1.5 GRAM PO BID, (Reported) Aspirin (Aspirin) 81 Mg Tab.chew, 81 MG PO DAILY, (Reported) Cholecalciferol (Vitamin D3) (Vitamin D3) 1,000 Unit Tablet, 1,000 UNITS PO DAILY, (Reported) Clindamycin HCl (Clindamycin HCl) 150 Mg Capsule, 450 MG PO Q8H, (Reported) STARTED 07/17/20 FOR 7 DAYS Docusate Sodium (Colace) 100 Mg Capsule, 100 MG PO DAILY, (Reported) Ferrous Sulfate (Iron) 325 Mg Tablet, 325 MG PO DAILY, (Reported) Furosemide (Furosemide) 40 Mg Tab, 40 MG PO DAILY, (Reported) Icosapent Ethyl (Vascepa) 1 Gm Capsule, 2 GM PO BID, (Reported) Insulin Detemir (Levemir) 100 Unit/1 Ml Vial, 20 UNITS SC QAM, (Reported) L.acidoph/L.bulg/B.bif/S.therm (Bacid Caplet) 1 Each Tablet, 1 TAB PO TID, (Reported) Latanoprost (Xalatan) 0.005% 2.5ML Drops, 1 DROP OU QHS, (Reported) Levofloxacin (Levofloxacin) 500 Mg Tablet, 500 MG PO QHS, (Reported) STARTED ON 07/16/20 FOR 7 DAYS Lisinopril (Lisinopril) 10 Mg Tablet, 10 MG PO BID, (Reported) Metformin HCl (Metformin HCl) 500 Mg Tablet, 500 MG PO BID, (Reported) 0800 & 1700 Metoprolol Succinate (Metoprolol Succinate) 100 Mg Tab.er.24h, 100 MG PO DAILY, (Reported) Miconazole Nitrate (Anti-Fungal Powder) 71 Gm Powder, 1 DOSE TOP BID, (Reported) APPLY TO ABDOMINAL FOLD Multivitamin (Multivitamin) 1 Each Tablet, 1 TAB PO DAILY, (Reported) Omeprazole (Omeprazole) 20 Mg Capsule.dr, 20 MG PO DAILY, (Reported) Rivaroxaban (Xarelto) 20 Mg Tablet, 20 MG PO DAILY, (Reported) Ropinirole HCl (Ropinirole HCl) 0.5 Mg Tablet, 0.5 MG PO QHS, (Reported) Rosuvastatin Calcium (Crestor) 20 Mg Tab, 20 MG PO QHS, (Reported) Senna (Senna Lax) 8.6 Mg Tablet, 8.6 MG PO QHS, (Reported) Sertraline Hcl (Zoloft) 25 Mg Tablet, 75 MG PO QHS, (Reported) Sitagliptin (Januvia) 50 Mg Tablet, 50 MG PO DAILY, (Reported) Tramadol HCl (Tramadol HCl) 50 Mg Tablet, 50 MG PO BID, (Reported) Scheduled PRN Bisacodyl (Bisacodyl) 10 Mg Supp.rect, 10 MG [place] DAILY PRN for CONSTIPATION, (Reported) Cyclobenzaprine HCl (Cyclobenzaprine HCl) 10 Mg Tablet, 10 MG PO TID PRN for MUSCLE SPASMS, (Reported) Gabapentin (Gabapentin) 100 Mg Capsule, 100 MG PO BID PRN for PAIN, (Reported) Magnesium Hydroxide (Milk of Magnesia) 400 Mg/5 Ml Oral.susp, 30 ML PO DAILY PRN for CONSTIPATION, (Reported) Sodium Phosphate,[place]-Dibasic (Enema) 133 Ml Enema, 1 OSMANY TN DAILY PRN for CONSTIPATION, (Reported) Tramadol HCl (Tramadol HCl) 50 Mg Tablet, 50 MG PO DAILY PRN for PAIN, (Reported) Allergies Coded Allergies: Penicillins (Verified Allergy, Intermediate, mouth swelling, 06/28/20) amoxicillin (Verified Allergy, Unknown, 06/28/20) cefazolin (Verified Allergy, Unknown, 06/28/20) ciprofloxacin (Verified Allergy, Unknown, 06/28/20) A-FIB/CHADSVASC A-FIB History Current/History of A-Fib/PAF?: Yes Current PO Anticoag Therapy: Yes Attending Note Attending Note Pain independently evaluated Ms Harris and examined her left AKA stump There is generalized edema and some soft tissue swelling as well as tenderness at the medial side of the stump closure, with some purulent drainage at the area, less so at the middle of the incision line. The incision line is intact with carolyn and reinforcing nylon sutures. Area is warm to touch, tender to touch at the medial and superior side nontender at the lateral side. Impression/Plan infection at the left aka stump s/p left aka on 06/28/20 Patient already on broad spectrum antibiotics will bring to or and plan for drainage of abscess, possible debridement, possible wound vac placement. consent obtained from the patient. Renetta Pantoja Jul 18, 2020 15:48 LIBBY ZARAGOZA MD Jul 19, 2020 10:54
[2020-07-18 16:00] LABS: BASO # 0.1 10^3/uL (0.0-0.2); BASO % 0.5 % (0.0-1.0); EOS # 0.4 10^3/uL (0.0-0.5); EOS % 3.6 % (0.0-3.0); HEMATOCRIT 31.3 % (36.0-47.0); HEMOGLOBIN 9.5 g/dl (12.0-15.5); LYMPH # 1.6 10^3/uL (1.5-5.0); LYMPH % 15.9 % (24.0-44.0); MEAN CORPUSCULAR HGB CONC 30.4 g/dl (32.0-36.5); MEAN CORPUSCULAR VOLUME 85.5 fl (80.0-96.0); MONO # 0.9 10^3/uL (0.0-0.8); MONO % 8.4 % (2.0-8.0); NEUTROPHILS # 7.2 10^3/uL (1.5-8.5); PLATELET COUNT, AUTOMATED 516 10^3/uL (150-450); RED BLOOD COUNT 3.66 10^6/uL (4.00-5.40); WHITE BLOOD COUNT 10.2 10^3/uL (4.0-10.0)
[2020-07-18 16:10] LABS: INR 1.36; PROTHROMBIN TIME 17.1 SECONDS (12.5-14.3)
[2020-07-18 16:41] LABS: RSV AMPLIFICATION NEGATIVE (NEGATIVE)
[2020-07-18 16:42] LABS: ALBUMIN 2.4 GM/DL (3.2-5.2); ALT/SGPT 16 U/L (12-78); BILIRUBIN,DIRECT < 0.1 MG/DL (0.0-0.2); BILIRUBIN,TOTAL 0.3 MG/DL (0.2-1.0); BLOOD UREA NITROGEN 41 MG/DL (7-18); CALCIUM LEVEL 9.3 MG/DL (8.8-10.2); CARBON DIOXIDE LEVEL 20 MEQ/L (21-32); CHLORIDE LEVEL 103 MEQ/L (98-107); GLOMERULAR FILTRATION RATE > 60.0 (>45); GLUCOSE, FASTING 118 MG/DL (70-100); NT-PRO BNP 854 PG/ML (<125); POTASSIUM SERUM 5.7 MEQ/L (3.5-5.1); SODIUM LEVEL 133 MEQ/L (136-145); THYROXINE (T4) 8.3 UG/DL (4.5-12.0); TOTAL PROTEIN 7.2 GM/DL (6.4-8.2)
[2020-07-18] MEDS ORDERED: MOM 30ML SUSPENSION UDC PO PRN (17:30)
[2020-07-18] MEDS ORDERED: CEFEPIME HCL 1 GM in D5W MINI-BAG PLUS 50 ML IV SCH (17:35)
[2020-07-18] MEDS ORDERED: GLUCAGON INJ 1MG VIAL SC PRN (17:45)
[2020-07-18] MEDS ORDERED: DEXTROSE 50% 50 ML SYRINGE IV PRN (17:45)
[2020-07-18] MEDS ORDERED: GLUCOSE 4GM CHEW TABLET PO PRN (17:45)
[2020-07-18] MEDS ORDERED: BISACODYL 10 MG SUPP PR PRN (17:50)
[2020-07-18] MEDS ORDERED: LISI10TA22 PO (17:56)
[2020-07-18] MEDS ORDERED: ACET-897 PO (17:56)
[2020-07-18] MEDS ORDERED: JUVEPOW4 PO (17:56)
[2020-07-18] MEDS ORDERED: LEVO500T3 PO (17:56)
[2020-07-18] MEDS ORDERED: GABA-1171 PO (17:56)
[2020-07-18] MEDS ORDERED: BACITAB PO (17:56)
[2020-07-18] MEDS ORDERED: CLIN-30 PO (17:56)
[2020-07-18] MEDS ORDERED: TRAM50TA2 PO ×2 (17:56)
[2020-07-18] MEDS ORDERED: VANCOMYCIN HCL 1,000 MG, VIAL MATE ADAPTER 1 EACH in NS 250 ML IV SCH (18:00)
--- NOTE | 2020-07-18 18:20 | HPEPDOC ---
[facility] Medical History & Physical Date of Admission Jul 18, 2020 Date of Service: Jul 18, 2020 Attending Physician: JUAN CARLOS FLORES MD History and Physical CHIEF COMPLAINT: Infected AKA stump HISTORY OF PRESENT ILLNESS: 70-year-old M with history of severe PAD, right AKA in 2006, and recent AKA on 06/28/[address] Bernardo, diabetic, was seen in clinic for follow up and placed on doxycycline for erythema around the stump site with c/f infection and then seen for follow up on 07/16/20 at which time drainage was noted on the patient's dressings and wound culture was sent and antibiotics were changed to levaquin and clindamycin who was now sent to the emergency room today from [facility] for worsening left AKA wound infection and drainage now with some severe pain as well. In the ED she is HDS and afebrile but is in significant pain at the stump site. WBC was 10.2, Hgb 9.5, platelets 516, Na 133, K 5.7, Cr 0.9 and CXR showed no acute disease. Dr. Zaragoza was consulted by the ED and recommended medicine admission and IV antibiotics with plan for debridement in the OR tomorrow. ALLERGIES: Penicillin, amoxicillin, cefazolin, ciprofloxacin HOME MEDICATIONS: Please see below. 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 Bernardo. PERSONAL/SOCIAL HISTORY: Former smoker No alcohol No illicit drugs Family history Father: due to Heart Attack. Mother: due to Unknown Causes. REVIEW OF SYSTEMS: Const: Denies fever, chills, rigors, weight loss or gain recently Eyes: No vision changes or eye pain ENT: Denies hearing loss. Denies congestion. Denies dysphagia, odynophagia CV: Denies chest pain, palpitations. Resp: Denies SOB, cough, pleurisy GI: Denies abdominal pain, constipation, diarrhea, nausea and vomiting. Musculoskeletal: Has worsening pain at L AKA stump, no pain at R AKA stump. Skin: No noted rash and wound. Uses nystatin for skin folds intertrigo Neuro: Has chronic right hemiparesis and some dysarthria from prior stroke Manuel/Lymph: Denies anemia and excessive bruising, hematuria, hematemesis, hemoptysis, hematochezia, melena. PHYSICAL EXAMINATION: Const: NAD but grimaces from time to time and reports that it due to pain the L stump Head: NCAT EENT: EOMI, PERRLA, MMM Neck: Supple, no JVD Resp: Clear to auscultation bilaterally. CV: RRR, has 2/6 systolic murmur at RUSB EXTREMITIES: Left AKA wound with carolyn and sutures intact, however with purulent drainage noted from the wound with surrounding erythema around the incision with tenderness to palpation. Abdomen: Obese, soft, NT, ND, no guarding or rebound. Neuro: Alert and oriented x3, speech appears clear on my conversation, grossly at baseline Psych: Pleasant and cooperative, AOX3 Labs and Imaging: reviewed above. I spoke with Dr. Zaragoza about imaging and he did not find it necessary and will be taking her to the OR for debridement tomorrow. Assessment: 70-year-old M with history of severe PAD, right AKA in 2006, and recent AKA on 06/28/[address] Bernardo, diabetic who is now admitted for post AKA stump infection. Postop wound infection: recent L AKA on 06/[address] Bernardo: -Failed outpatient oral antibiotics. -Vanc and cefepime -f/u BCx -Dr. Zaragoza has been consulted, plan is for OR debridement tomorrow, NPO at midnight -Hold xarelto -continue ASA DM: -continue levemir 20 QAM, hold oral meds, SSI ACHS, FSBG ACHS, hypoglycemia protocol Chronic Atrial fibrillation: -rate controlled -will continue metoprolol -hold xarelto Hypertension: -continue metoprolol, lisinopril and amlodipine HLD -continue statin CAD -continue asa, statin, metoprolol Gout -continue allopurinol GERD -continue PPI Depression -continue sertraline Glaucoma -continue home eye drops. Intertrigo -continue nystatin powder. Dispo: [employer] Vital Signs Vital Signs Date Time Temp Pulse Resp B/P (MAP) Pulse Ox O2 Delivery O2 Flow Rate FiO2 07/18/20 14:42 97.5 91 20 120/58 (78) 98 Room Air Laboratory Data Labs 24H Laboratory Tests 2 07/18/20 15:20: Immature Granulocyte % (Auto) 0.6, Neutrophils (%) (Auto) 71.0H, Lymphocytes (%) (Auto) 15.9L, Monocytes (%) (Auto) 8.4H, Eosinophils (%) (Auto) 3.6H, Basophils (%) (Auto) 0.5, Neutrophils # (Auto) 7.2, Lymphocytes # (Auto) 1.6, Monocytes # (Auto) 0.9H, Eosinophils # (Auto) 0.4, Basophils # (Auto) 0.1, Nucleated Red Blood Cells % (auto) 0.0, Prothrombin Time 17.1H, Prothromb Time International Ratio 1.36, Anion Gap 10, Glomerular Filtration Rate > 60.0, Lactic Acid Level 1.8, Calcium Level 9.3, Total Bilirubin 0.3, Direct Bilirubin < 0.1, Aspartate Amino Transf (AST/SGOT) 29, Alanine Aminotransferase (ALT/SGPT) 16, Alkaline Phosphatase 90, ND-Dmt-U-Type Natriuretic Peptide 854H, Total Protein 7.2, Albumin 2.4L, Albumin/Globulin Ratio 0.5L, Thyroid Stimulating Hormone (TSH) 2.450, Thyroxine (T4) 8.3, Coronavirus (COVID-19)(PCR) NEGATIVE, Influenza Type A (RT-PCR) NEGATIVE, Influenza Type B (RT-PCR) NEGATIVE, Respiratory Syncytial Virus (PCR) NEGATIVE CBC/BMP Laboratory Tests 07/18/20 15:20 Microbiology Microbiology 07/18/20 Blood Culture, Received Pending 07/18/20 Blood Culture, Received Pending Home Medications Scheduled Allopurinol (Allopurinol) 100 Mg Tablet, 100 MG PO DAILY Amlodipine Besylate (Amlodipine Besylate) 5 Mg Tablet, 5 MG PO DAILY Aspirin (Aspirin) 81 Mg Tab.chew, 81 MG PO DAILY Cholecalciferol (Vitamin D3) (Vitamin D3) 1,000 Unit Tablet, 1,000 UNITS PO DAILY Docusate Sodium (Colace) 100 Mg Capsule, 100 MG PO DAILY Ferrous Sulfate (Iron) 325 Mg Tablet, 325 MG PO DAILY Furosemide (Furosemide) 40 Mg Tab, 40 MG PO DAILY Icosapent Ethyl (Vascepa) 1 Gm Capsule, 2 GM PO BID Insulin Detemir (Levemir) 100 Unit/1 Ml Vial, 20 UNITS SC QAM Latanoprost (Xalatan) 0.005% 2.5ML Drops, 1 DROP OU QHS Lisinopril (Lisinopril) 10 Mg Tablet, 10 MG PO BID Metformin HCl (Metformin HCl) 500 Mg Tablet, 500 MG PO BID Metoprolol Succinate (Metoprolol Succinate) 100 Mg Tab.er.24h, 100 MG PO DAILY Miconazole Nitrate (Anti-Fungal Powder) 71 Gm Powder, 1 DOSE TOP BID APPLY TO ABDOMINAL FOLD Multivitamin (Multivitamin) 1 Each Tablet, 1 EACH PO DAILY Omeprazole (Omeprazole) 20 Mg Capsule.dr, 20 MG PO DAILY Rivaroxaban (Xarelto) 20 Mg Tablet, 20 MG PO DAILY Ropinirole HCl (Ropinirole HCl) 0.5 Mg Tablet, 0.5 MG PO QHS Rosuvastatin Calcium (Crestor) 20 Mg Tab, 20 MG PO QHS Senna (Senna Lax) 8.6 Mg Tablet, 8.6 MG PO QHS Sertraline Hcl (Zoloft) 25 Mg Tablet, 25 MG PO QHS 75MG TOTAL DAILY Sertraline Hcl (Zoloft) 50 Mg Tablet, 50 MG PO QHS 75MG TOTAL DAILY Sitagliptin (Januvia) 50 Mg Tablet, 50 MG PO DAILY Scheduled PRN Acetaminophen (Acetaminophen) 325 Mg Tablet, 650 MG PO Q4H PRN for PAIN / FEVER Bisacodyl (Bisacodyl) 10 Mg Supp.rect, 10 MG [place] DAILY PRN for CONSTIPATION Cyclobenzaprine HCl (Cyclobenzaprine HCl) 10 Mg Tablet, 10 MG PO TID PRN for MUSCLE SPASMS Magnesium Hydroxide (Milk of Magnesia) 400 Mg/5 Ml Oral.susp, 30 ML PO DAILY PRN for CONSTIPATION Oxycodone HCl/Acetaminophen (Oxycodone-Acetaminophen 5-325) 1 Each Tablet, 1 TAB PO Q4-6HP PRN for PAIN Oxycodone HCl/Acetaminophen (Percocet 5-325 mg Tablet) 1 Each Tablet, 1 TAB PO BID PRN for PAIN Sodium Phosphate,[place]-Dibasic (Enema) 133 Ml Enema, 1 OSMANY [place] DAILY PRN for CONSTIPATION glucagon HCL (glucagon HCL) 1 Mg/1 Ml Vial, 1 MG IM PRN PRN for LOW BLOOD SUGAR Allergies Coded Allergies: Penicillins (Verified Allergy, Intermediate, mouth swelling, 06/28/20) amoxicillin (Verified Allergy, Unknown, 06/28/20) cefazolin (Verified Allergy, Unknown, 06/28/20) ciprofloxacin (Verified Allergy, Unknown, 06/28/20) A-FIB/CHADSVASC A-FIB History Current/History of A-Fib/PAF?: Yes Current PO Anticoag Therapy: Yes Treatment Treatment ordered: Rivaroxaban JUAN CARLOS FLORES MD Jul 18, 2020 18:20
[2020-07-18] MEDS: HumaLOG INSULIN (NovoLOG) PER UNIT SC SCH ×2 (19:47→21:00)
[2020-07-18 20:47] VITALS: BP 96/48
[2020-07-18] MEDS: rOPINIRole 0.25 MG TAB(REQUIP) PO SCH (22:08)
[2020-07-18] MEDS: SENNA 8.6 MG TAB (SENOKOT) PO SCH (22:08)
[2020-07-18] MEDS: SERTRALINE HCL 25 MG TABLET PO SCH (22:08)
[2020-07-18] MEDS: CEFEPIME HCL 2 GM in D5W MINI-BAG PLUS 50 ML IV SCH (22:09)
[2020-07-18] MEDS: ROSUVASTATIN 10 MG TAB (CRESTOR) PO SCH (22:09)
[2020-07-18] MEDS: traMADol 50 MG TAB PO SCH (22:10)
[2020-07-18] MEDS: MICONAZOLE 2 % POWDER (DESENEX) TOP SCH (22:20)
[2020-07-18] MEDS: LATANOPROST 0.005% OPHTH SOLN 2.5 ML OU SCH (22:20)
[2020-07-18] MEDS ORDERED: VANCOMYCIN HCL 1,000 MG, VIAL MATE ADAPTER 1 EACH in NS 250 ML IV ONE (23:00)
[2020-07-19 06:00] VITALS: BP 112/81
[2020-07-19] MEDS: HumaLOG INSULIN (NovoLOG) PER UNIT SC SCH ×4 (07:30→20:31)
[2020-07-19 07:57] LABS: HEMATOCRIT 32.3 % (36.0-47.0); MEAN CORPUSCULAR VOLUME 84.1 fl (80.0-96.0); PLATELET COUNT, AUTOMATED 489 10^3/uL (150-450); RED BLOOD COUNT 3.84 10^6/uL (4.00-5.40)
[2020-07-19 08:21] LABS: BLOOD UREA NITROGEN 30 MG/DL (7-18); CALCIUM LEVEL 8.9 MG/DL (8.8-10.2); CARBON DIOXIDE LEVEL 25 MEQ/L (21-32); CHLORIDE LEVEL 104 MEQ/L (98-107); CREATININE FOR GFR 0.72 MG/DL (0.55-1.30); GLOMERULAR FILTRATION RATE > 60.0 (>45); GLUCOSE, FASTING 162 MG/DL (70-100); MAGNESIUM LEVEL 1.4 MG/DL (1.8-2.4); POTASSIUM SERUM 4.3 MEQ/L (3.5-5.1); SODIUM LEVEL 138 MEQ/L (136-145)
[2020-07-19] MEDS: ASPIRIN 81 MG CHEW TABLET PO SCH (08:56)
[2020-07-19] MEDS: DOCUSATE SODIUM 100MG CAPSULE PO SCH (08:56)
[2020-07-19] MEDS: OMEPRAZOLE 20 MG CAP PO SCH (08:56)
[2020-07-19] MEDS: FERROUS SULFATE 325MG TAB PO SCH (08:56)
[2020-07-19] MEDS: METOPROLOL TART 12.5 MG PER 1/2 TAB PO SCH ×2 (08:56→21:27)
[2020-07-19] MEDS: LACTOBACILLUS ACIDOPHILUS CAP (BACID) PO SCH ×3 (08:56→18:29)
[2020-07-19] MEDS: VITAMIN D 1,000 INTERNATIONAL UNITS TABLET PO SCH (08:56)
[2020-07-19] MEDS: NS 1,000 ML IV SCH ×2 (08:56→15:09)
[2020-07-19] MEDS: allopurinoL 100 MG TAB PO SCH (08:56)
[2020-07-19] MEDS: CEFEPIME HCL 2 GM in D5W MINI-BAG PLUS 50 ML IV SCH ×2 (08:57→22:37)
[2020-07-19] MEDS: traMADol 50 MG TAB PO SCH ×2 (08:57→21:29)
[2020-07-19] MEDS ORDERED: amLODIPine 5 MG TAB PO SCH (09:00)
[2020-07-19] MEDS ORDERED: METOPROLOL SUCC (TopROL XL) 100MG *XL* TAB PO SCH (09:00)
[2020-07-19] MEDS: LEVEMIR (INSULIN DETEMIR) 1 UNITS/0.01ML SC SCH (09:00)
[2020-07-19] MEDS ORDERED: LEVEMIR (INSULIN DETEMIR) 1 UNITS/0.01ML SC ONE (09:35)
--- NOTE | 2020-07-19 09:37 | ECGEPIP ---
[facility] - ED Test Date: 2020-07-18 Pat Name: MUKESH FLETCHER Department: Room: - Gender: Female Senior Program Manager: YARELISTIFFANY : 1950 Requested By: SIRENA Anthony Order Number: [id number] Reading MD: Malu Pringle Measurements Intervals [place] Rate: 91 P: [place]: QRS: 55 QRSD: 82 T: 44 QT: 370 QTc: 455 Interpretive Statements Atrial fibrillation similar 02/28/17 Electronically Signed on 07-19-2020 9:36:39 EDT by Malu Pringle
[2020-07-19] MEDS: VANCOMYCIN HCL 750 MG, VIAL MATE ADAPTER 1 EACH in NS 250 ML IV SCH ×2 (10:09→21:22)
[2020-07-19] MEDS: MICONAZOLE 2 % POWDER (DESENEX) TOP SCH ×2 (10:58→21:30)
[2020-07-19 11:50] VITALS: BP 122/80
--- NOTE | 2020-07-19 12:12 | IPNPDOC ---
Text Note Date of Service The patient was seen on 07/19/20. NOTE SUBJECTIVE: -No complaints overnight -BPs were soft overnight OBJECTIVE: Const: NAD Head: NCAT EENT: EOMI, PERRLA, MMM Neck: Supple, no JVD Resp: Clear to auscultation bilaterally. CV: RRR, has 2/6 systolic murmur at RUSB EXTREMITIES: Left AKA wound with carolyn and sutures intact with leaking purulent drainage noted from wound with surrounding erythema Abdomen: Obese, soft, NT, ND, no guarding or rebound. Neuro: Alert and oriented x3, speech appears clear on my conversation, grossly at baseline Psych: Pleasant and cooperative, AOX3 Labs: pending AM labs. Assessment: 70-year-old M with history of severe PAD, right AKA in 2006, and recent AKA on 06/28/[address] Bernardo, diabetic who is now admitted for post AKA stump infection. Postop wound infection: recent L AKA on 06/[address] Bernardo: -Failed outpatient oral antibiotics. -cont Vanc and cefepime -f/u BCx -Dr. Zaragoza has been consulted, plan is for OR debridement today, NPO -Holding xarelto -continue ASA -NS at 100cc/hr DM: -continue levemir 20 QAM, hold oral meds, SSI ACHS, FSBG ACHS, hypoglycemia protocol Chronic Atrial fibrillation: -rate controlled -reduce metoprolol ro 12.5 BID tartrate for rate control and dc the 100mg daily succinate while infected with low BPs -hold xarelto Hypertension: -continue metoprolol at reduced dose as per above -hold lisinopril and amlodipine HLD -continue statin CAD -continue asa, statin, metoprolol Gout -continue allopurinol GERD -continue PPI Depression -continue sertraline Glaucoma -continue home eye drops. Intertrigo -continue nystatin powder. Dispo: medsurg VS,Fishbone, I+O VS, Fishbone, I+O Laboratory Tests 07/18/20 15:20 Vital Signs Date Time Temp Pulse Resp B/P (MAP) Pulse Ox O2 Delivery O2 Flow Rate FiO2 07/18/20 22:14 98/64 07/18/20 22:10 18 07/18/20 20:47 97.4 87 90 Room Air I&O- Last 24 Hours up to 6 AM 07/19/20 06:00 Intake Total 570 ml Output Total 400 ml Balance 170 ml JUAN CARLOS FLORSE MD Jul 19, 2020 07:44
[2020-07-19] MEDS ORDERED: LIDOCAINE W/EPINEPHRINE 1% 20ML VIAL As Ordered ONE (12:17)
[2020-07-19] MEDS ORDERED: LIDOCAINE 1% SDV 30ML VIAL As Ordered ONE (12:17)
[2020-07-19] MEDS ORDERED: LIDOCAINE 2% 100MG/5ML SDV (FOR ANES.) As Ordered ONE (12:29)
[2020-07-19] MEDS ORDERED: KETOROLAC 60MG 2ML VIAL As Ordered ONE (12:29)
[2020-07-19] MEDS ORDERED: ONDANSETRON 4MG/2ML VIAL As Ordered ONE (12:29)
[2020-07-19] MEDS ORDERED: dexameTHASONE 4 MG/ML 1ML VIAL (J1100 PER 1MG) As Ordered ONE (12:29)
[2020-07-19] MEDS ORDERED: MIDAZOLAM INJ 2MG/2ML VIAL (J2250 PER 1MG) As Ordered ONE (12:29)
[2020-07-19] MEDS ORDERED: fentaNYL 100 MCG/2 ML INJECTION (J3010) As Ordered ONE (12:29)
[2020-07-19] MEDS ORDERED: propofoL 200 MG/20 ML VIAL As Ordered ONE (12:29)
[2020-07-19] MEDS ORDERED: ACETAMINOPHEN 1000MG 100ML IV BTL (OFIRMEV) (J0131 PER 10MG) As Ordered ONE (12:29)
[2020-07-19] MEDS ORDERED: BUPIVACAINE HCL 0.25% 30ML VIAL As Ordered ONE (12:58)
[2020-07-19 14:00] VITALS: BP 122/80
--- NOTE | 2020-07-19 14:01 | ROOPDOC ---
[facility] Report Of Operation Report of Operation DATE OF PROCEDURE: 07/19/20 PREPROCEDURE DIAGNOSES: infected left AKA stump. POSTPROCEDURE DIAGNOSES: abscess, necrotic skin and subcutaneous tissue at left AKA stump. PROCEDURE: incision, drainage, excisional debridement of necrotic subcutaneous tissue, placement of wound vac (initial) SURGEON: Eric Zaragoza MD AVIATION PROGRAM MANAGER: ANESTHESIA: General (LMA). ESTIMATED BLOOD LOSS: Approximately 20 mL. COMPLICATIONS: none. REMARKS: 70 F who had AKA on left leg for ischemic leg, had increasing swelling, purulent drainage at left AKA stump. PROCEDURE NOTE: medial side of stump with purulent drainage, liquefied necrosis of subcutaneous fat tissue, edges of skin ischemic , medial lower portion of skin flap and subcutaneous tissue also necrotic. DESCRIPTION OF PROCEDURE: Manuel has been on IV antibiotics for infection of her AKA stump. She has been receiving Vancomycin and Cefepime per the medical service. She was brought to the operating room, placed supine on the procedure table. General anesthesia initiated with laryngeal mask airway. She has a prior right AKA and a recent left AKA. The medial part of the stump appears swollen, erythematous and boggy in appearance with partial dehiscence medially. She still has sutures on her suture line. The middle and lateral portion seems to be intact. Her left AKA stump was prepped and draped in the usual sterile fashion.We paused for a surgical timeout using both pre-incision safety checklist to verify correct patient, procedure site and additional clinical information prior to beginning the procedure I removed the remaining sutures. Probe the open portion of the medial portion of the stump and immediately got purulent fluid brownish in color but non-foul smelling. Cultures were obtained. I opened up the Vicryl sutures underneath and probed more medially. There are some liquefied adipose tissue underneath the incision and this was sharply debrided to relatively healthy tissue. The lateral up to about the middle portion of the stump opened up. The lateral portion of the stump seems to be fairly intact and healed. Passing over the area does not yield any noticeable inflammation. There stump of the humerus was not visible nor any muscles visible at the dehisced portion of the wound. After the left over tissues appear healthy I then irrigated the wound with saline. Hemostasis was checked. I then placed a wound VAC using a spiral fall. Sterile drapes were placed to protect the surrounding skin. The spiral foam was trimmed and placed into the wound cavity and another layer of the sterile plastic drape placed. I've created a track laterally that will connect to the black foam. The tubing was then connected to the wound VAC machine and we started this at 1 20 mmHg continuous pressure until we got a good seal.\\ Patient was then awakened, extubated and brought to recovery room in stable condition. ERIC ZARAGOZA MD Jul 19, 2020 14:01
[2020-07-19] MEDS ORDERED: ONDANSETRON 4MG/2ML VIAL IV PRN (14:10)
[2020-07-19] MEDS ORDERED: LR 1,000 ML IV SCH (14:10)
[2020-07-19] MEDS ORDERED: oxyCODONE 5MG TAB PO PRN (14:10)
[2020-07-19] MEDS: fentaNYL 100 MCG/2 ML INJECTION (J3010) IV PRN ×2 (14:22→14:27)
[2020-07-19] MEDS: METOPROLOL 5 MG/5 ML VIAL IV PRN ×3 (14:23→14:34)
[2020-07-19] MEDS: OMEGA-3 1000MG CAPSULE PO SCH (21:27)
[2020-07-19] MEDS: rOPINIRole 0.25 MG TAB(REQUIP) PO SCH (21:27)
[2020-07-19] MEDS: SENNA 8.6 MG TAB (SENOKOT) PO SCH (21:29)
[2020-07-19] MEDS: ROSUVASTATIN 10 MG TAB (CRESTOR) PO SCH (21:29)
[2020-07-19] MEDS: SERTRALINE HCL 25 MG TABLET PO SCH (21:29)
[2020-07-19] MEDS: LATANOPROST 0.005% OPHTH SOLN 2.5 ML OU SCH (21:30)
[2020-07-19 22:00] VITALS: BP 146/79
[2020-07-20 02:00] VITALS: BP 148/70
[2020-07-20 06:00] VITALS: BP 143/67
[2020-07-20 06:47] LABS: HEMATOCRIT 30.2 % (36.0-47.0); HEMOGLOBIN 9.2 g/dl (12.0-15.5); MEAN CORPUSCULAR HEMOGLOBIN 25.8 pg (27.0-33.0); MEAN CORPUSCULAR HGB CONC 30.5 g/dl (32.0-36.5); MEAN CORPUSCULAR VOLUME 84.8 fl (80.0-96.0); PLATELET COUNT, AUTOMATED 459 10^3/uL (150-450); RED BLOOD COUNT 3.56 10^6/uL (4.00-5.40); WHITE BLOOD COUNT 10.9 10^3/uL (4.0-10.0)
[2020-07-20 07:03] LABS: BLOOD UREA NITROGEN 22 MG/DL (7-18); C REACTIVE PROTEIN QUANTITATIV 9.69 MG/DL (0.00-0.30); CALCIUM LEVEL 8.3 MG/DL (8.8-10.2); CARBON DIOXIDE LEVEL 22 MEQ/L (21-32); CHLORIDE LEVEL 112 MEQ/L (98-107); CREATININE FOR GFR 0.63 MG/DL (0.55-1.30); GLOMERULAR FILTRATION RATE > 60.0 (>45); GLUCOSE, FASTING 147 MG/DL (70-100); POTASSIUM SERUM 4.5 MEQ/L (3.5-5.1); SODIUM LEVEL 141 MEQ/L (136-145)
[2020-07-20] MEDS: DOCUSATE SODIUM 100MG CAPSULE PO SCH (08:50)
[2020-07-20] MEDS: FERROUS SULFATE 325MG TAB PO SCH (08:50)
[2020-07-20] MEDS: METOPROLOL SUCC (TopROL XL) 100MG *XL* TAB PO SCH (08:50)
[2020-07-20] MEDS: OMEPRAZOLE 20 MG CAP PO SCH (08:50)
[2020-07-20] MEDS: ASPIRIN 81 MG CHEW TABLET PO SCH (08:50)
[2020-07-20] MEDS: LACTOBACILLUS ACIDOPHILUS CAP (BACID) PO SCH ×3 (08:50→17:38)
[2020-07-20] MEDS: OMEGA-3 1000MG CAPSULE PO SCH ×2 (08:50→20:01)
[2020-07-20] MEDS: VITAMIN D 1,000 INTERNATIONAL UNITS TABLET PO SCH (08:50)
[2020-07-20] MEDS: allopurinoL 100 MG TAB PO SCH (08:50)
[2020-07-20] MEDS: HumaLOG INSULIN (NovoLOG) PER UNIT SC SCH ×4 (08:51→21:00)
[2020-07-20] MEDS: LEVEMIR (INSULIN DETEMIR) 1 UNITS/0.01ML SC SCH (08:52)
[2020-07-20] MEDS: traMADol 50 MG TAB PO SCH ×2 (08:52→20:01)
[2020-07-20] MEDS: MICONAZOLE 2 % POWDER (DESENEX) TOP SCH ×2 (08:53→20:02)
[2020-07-20] MEDS ORDERED: MAG SULF 1GM/100ML (MAG RUN) 1 GM in IV 1 EA IV ONE (09:00)
--- NOTE | 2020-07-20 09:41 | IPNPDOC ---
Text Note Date of Service The patient was seen on 07/20/20. NOTE No acute events overnight. Pain is controlled. She is tolerating diet, and den ies problems with the wound vac. VSSAF NAD skin - wound vac in place to the left LE, no leak A) Infection to left LE amputation incision. POD#1 s/p debridement and wound vac placement P) reg diet abx wound vac plan for wound vac chance on Wednesday. James Cohen DO VS,James, I+O VS, James, I+O Laboratory Tests 07/20/20 06:19 Vital Signs Date Time Temp Pulse Resp B/P (MAP) Pulse Ox O2 Delivery O2 Flow Rate FiO2 07/20/20 08:52 20 Room Air 07/20/20 08:50 84 146/64 07/20/20 06:00 96.8 95 07/19/20 14:40 2.0 I&O- Last 24 Hours up to 6 AM 07/20/20 06:00 Intake Total 2270 ml Output Total 1725 ml Balance 545 ml PAULO COHEN DO July 20, 2020 09:41
[2020-07-20] MEDS: CEFEPIME HCL 2 GM in D5W MINI-BAG PLUS 50 ML IV SCH ×2 (10:17→20:00)
--- NOTE | 2020-07-20 11:17 | IPNPDOC ---
Text Note Date of Service The patient was seen on 07/20/20. NOTE SUBJECTIVE: -No complaints overnight -s/p debridement now with woundvac in place OBJECTIVE: Const: NAD Head: NCAT EENT: EOMI, PERRLA, MMM Neck: Supple, no JVD Resp: Clear to auscultation bilaterally. CV: RRR, has 2/6 systolic murmur at RUSB EXTREMITIES: Left AKA wound with carolyn and sutures intact with leaking purulent drainage noted from wound with surrounding erythema Abdomen: Obese, soft, NT, ND, no guarding or rebound. Neuro: Alert and oriented x3, speech appears clear on my conversation, grossly at baseline Psych: Pleasant and cooperative, AOX3 Labs: Reviewed WBC 10.9 hgb 9.2 platelets 459 na 141 K 4.5 Cr 0.63 Assessment: 70-year-old M with history of severe PAD, right AKA in 2006, and recent AKA on 06/28/[address] Bernardo, diabetic who is now admitted for post AKA stump infection now POD1 s/p debridement. Postop wound infection: recent L AKA on 06/[address] Bernardo: -Failed outpatient oral antibiotics. -DC Vanc, MRSA negative, and continue cefepime. -f/u BCx -Dr. Zaragoza has been consulted, POD#1 s/p debridement with woundvac placement -will discuss restarting xarelto w/ surgery on timing -continue ASA DM: -Increase levemir back to 20 QAM, hold oral meds, SSI ACHS, FSBG ACHS, hypoglycemia protocol Chronic Atrial fibrillation: -rate controlled -Restart home 100mg daily succinate -holding xarelto Hypertension: -continue metoprolol -hold lisinopril and amlodipine HLD -continue statin CAD -continue asa, statin, metoprolol Gout -continue allopurinol GERD -continue PPI Depression -continue sertraline Glaucoma -continue home eye drops. Intertrigo -continue nystatin powder. Dispo: medsurg VS,Fishbone, I+O VS, Fishbone, I+O Laboratory Tests 07/20/20 06:19 Vital Signs Date Time Temp Pulse Resp B/P (MAP) Pulse Ox O2 Delivery O2 Flow Rate FiO2 07/20/20 06:00 96.8 101 16 143/67 (92) 95 Room Air 07/19/20 14:40 2.0 I&O- Last 24 Hours up to 6 AM 07/20/20 06:00 Intake Total 2270 ml Output Total 1725 ml Balance 545 ml JUAN CARLOS FLORES MD July 20, 2020 07:57
[2020-07-20 14:00] VITALS: BP 142/68
[2020-07-20] MEDS: rOPINIRole 0.25 MG TAB(REQUIP) PO SCH (20:00)
[2020-07-20] MEDS: ROSUVASTATIN 10 MG TAB (CRESTOR) PO SCH (20:01)
[2020-07-20] MEDS: SERTRALINE HCL 25 MG TABLET PO SCH (20:01)
[2020-07-20] MEDS: SENNA 8.6 MG TAB (SENOKOT) PO SCH (20:01)
[2020-07-20] MEDS: LATANOPROST 0.005% OPHTH SOLN 2.5 ML OU SCH (20:02)
[2020-07-20 22:00] VITALS: BP 142/85
[2020-07-21] MEDS ORDERED: METOPROLOL TART 25 MG TABLET PO ONE (05:45)
[2020-07-21 05:54] LABS: HEMATOCRIT 31.5 % (36.0-47.0); HEMOGLOBIN 9.5 g/dl (12.0-15.5); MEAN CORPUSCULAR HEMOGLOBIN 25.5 pg (27.0-33.0); MEAN CORPUSCULAR HGB CONC 30.2 g/dl (32.0-36.5); MEAN CORPUSCULAR VOLUME 84.5 fl (80.0-96.0); PLATELET COUNT, AUTOMATED 421 10^3/uL (150-450); RED BLOOD COUNT 3.73 10^6/uL (4.00-5.40); WHITE BLOOD COUNT 12.4 10^3/uL (4.0-10.0)
[2020-07-21 06:00] VITALS: BP 144/86
[2020-07-21 06:15] LABS: BLOOD UREA NITROGEN 16 MG/DL (7-18); CALCIUM LEVEL 8.9 MG/DL (8.8-10.2); CARBON DIOXIDE LEVEL 23 MEQ/L (21-32); CHLORIDE LEVEL 106 MEQ/L (98-107); CREATININE FOR GFR 0.64 MG/DL (0.55-1.30); GLOMERULAR FILTRATION RATE > 60.0 (>45); GLUCOSE, FASTING 152 MG/DL (70-100); SODIUM LEVEL 136 MEQ/L (136-145)
[2020-07-21] MEDS: CEFEPIME HCL 2 GM in D5W MINI-BAG PLUS 50 ML IV SCH ×2 (08:50→20:46)
[2020-07-21] MEDS: HumaLOG INSULIN (NovoLOG) PER UNIT SC SCH ×4 (08:50→20:49)
[2020-07-21] MEDS: LACTOBACILLUS ACIDOPHILUS CAP (BACID) PO SCH ×3 (08:51→17:36)
[2020-07-21] MEDS: LEVEMIR (INSULIN DETEMIR) 1 UNITS/0.01ML SC SCH (08:51)
[2020-07-21] MEDS: ASPIRIN 81 MG CHEW TABLET PO SCH (08:51)
[2020-07-21] MEDS: allopurinoL 100 MG TAB PO SCH (08:51)
[2020-07-21] MEDS: METOPROLOL SUCC (TopROL XL) 100MG *XL* TAB PO SCH (08:53)
[2020-07-21] MEDS: FERROUS SULFATE 325MG TAB PO SCH (08:53)
[2020-07-21] MEDS: DOCUSATE SODIUM 100MG CAPSULE PO SCH (08:53)
[2020-07-21] MEDS: OMEPRAZOLE 20 MG CAP PO SCH (08:53)
[2020-07-21] MEDS: VITAMIN D 1,000 INTERNATIONAL UNITS TABLET PO SCH (08:54)
[2020-07-21] MEDS: traMADol 50 MG TAB PO SCH ×2 (08:54→20:48)
[2020-07-21] MEDS: OMEGA-3 1000MG CAPSULE PO SCH ×2 (08:54→20:47)
[2020-07-21] MEDS: MICONAZOLE 2 % POWDER (DESENEX) TOP SCH ×2 (08:55→20:50)
--- NOTE | 2020-07-21 13:40 | IPNPDOC ---
Text Note Date of Service The patient was seen on 07/21/20. NOTE SUBJECTIVE: -No complaints overnight -had an episode of RVR overnight and got extra dose of metop overnight with rate improvement OBJECTIVE: Const: NAD Head: NCAT EENT: EOMI, PERRLA, MMM Neck: Supple, no JVD Resp: Clear to auscultation bilaterally. CV: RRR, has 2/6 systolic murmur at RUSB EXTREMITIES: Left AKA wound with carolyn and sutures intact with leaking purulent drainage noted from wound with surrounding erythema Abdomen: Obese, soft, NT, ND, no guarding or rebound. Neuro: Alert and oriented x3, speech appears clear on my conversation, grossly at baseline Psych: Pleasant and cooperative, AOX3 Labs: Reviewed WBC 10.9 hgb 9.2 platelets 459 na 141 K 4.5 Cr 0.63 Assessment: 70-year-old M with history of severe PAD, right AKA in 2006, and recent AKA on 06/28/[address] Bernardo, diabetic who is now admitted for post AKA stump infection now POD1 s/p debridement. Postop wound infection: recent L AKA on 06/[address] Bernardo: -Failed outpatient oral antibiotics. -Continue cefepime. -f/u BCx -Dr. Zaragoza has been consulted, POD#2 s/p debridement with woundvac placement -restart xarelto -continue ASA -MRSA negative, vanc was discontinued on 07/20 DM: -Levemir 20 QAM, hold oral meds, SSI ACHS, FSBG ACHS, hypoglycemia protocol Chronic Atrial fibrillation: -rate controlled -Toprol 100mg daily succinate -resume xarelto Hypertension: -continue metoprolol -holding lisinopril and amlodipine HLD -continue statin CAD -continue asa, statin, metoprolol Gout -continue allopurinol GERD -continue PPI Depression -continue sertraline Glaucoma -continue home eye drops. Intertrigo -continue nystatin powder. DVT ppx: xarelto Dispo: medsurg VS,Fishbone, I+O VS, Fishbone, I+O Laboratory Tests 07/21/20 05:28 Vital Signs Date Time Temp Pulse Resp B/P (MAP) Pulse Ox O2 Delivery O2 Flow Rate FiO2 07/21/20 08:54 18 Room Air 07/21/20 08:53 68 132/70 07/21/20 06:00 97.3 93 07/19/20 14:40 2.0 I&O- Last 24 Hours up to 6 AM 07/21/20 06:00 Intake Total 1740 ml Output Total 1325 ml Balance 415 ml JUAN CARLOS FLORES MD July 21, 2020 13:40
[2020-07-21 14:00] VITALS: BP 154/70
[2020-07-21] MEDS: RIVAROXABAN 20 MG TAB (XARELTO) PO SCH (17:36)
[2020-07-21] MEDS: rOPINIRole 0.25 MG TAB(REQUIP) PO SCH (20:47)
[2020-07-21] MEDS: SENNA 8.6 MG TAB (SENOKOT) PO SCH (20:47)
[2020-07-21] MEDS: SERTRALINE HCL 25 MG TABLET PO SCH (20:48)
[2020-07-21] MEDS: LATANOPROST 0.005% OPHTH SOLN 2.5 ML OU SCH (20:49)
[2020-07-21] MEDS: ROSUVASTATIN 10 MG TAB (CRESTOR) PO SCH (20:53)
[2020-07-21 22:00] VITALS: BP 141/65
[2020-07-22 05:52] LABS: HEMATOCRIT 30.9 % (36.0-47.0); HEMOGLOBIN 9.4 g/dl (12.0-15.5); MEAN CORPUSCULAR HEMOGLOBIN 25.8 pg (27.0-33.0); MEAN CORPUSCULAR HGB CONC 30.4 g/dl (32.0-36.5); MEAN CORPUSCULAR VOLUME 84.7 fl (80.0-96.0); PLATELET COUNT, AUTOMATED 389 10^3/uL (150-450); RED BLOOD COUNT 3.65 10^6/uL (4.00-5.40); WHITE BLOOD COUNT 10.6 10^3/uL (4.0-10.0)
[2020-07-22 06:11] LABS: BLOOD UREA NITROGEN 16 MG/DL (7-18); CALCIUM LEVEL 9.7 MG/DL (8.8-10.2); CARBON DIOXIDE LEVEL 26 MEQ/L (21-32); CHLORIDE LEVEL 105 MEQ/L (98-107); CREATININE FOR GFR 0.57 MG/DL (0.55-1.30); GLOMERULAR FILTRATION RATE > 60.0 (>45); GLUCOSE, FASTING 177 MG/DL (70-100); POTASSIUM SERUM 4.1 MEQ/L (3.5-5.1); SODIUM LEVEL 139 MEQ/L (136-145)
[2020-07-22 06:49] VITALS: BP 135/84
[2020-07-22] MEDS: LEVEMIR (INSULIN DETEMIR) 1 UNITS/0.01ML SC SCH (09:37)
[2020-07-22] MEDS: HumaLOG INSULIN (NovoLOG) PER UNIT SC SCH ×4 (09:37→20:36)
[2020-07-22] MEDS: CEFEPIME HCL 2 GM in D5W MINI-BAG PLUS 50 ML IV SCH ×2 (09:37→20:13)
[2020-07-22] MEDS: RIVAROXABAN 20 MG TAB (XARELTO) PO SCH (09:38)
[2020-07-22] MEDS: traMADol 50 MG TAB PO SCH ×2 (09:38→20:15)
[2020-07-22] MEDS: OMEGA-3 1000MG CAPSULE PO SCH ×2 (09:38→20:13)
[2020-07-22] MEDS: FERROUS SULFATE 325MG TAB PO SCH (09:38)
[2020-07-22] MEDS: ASPIRIN 81 MG CHEW TABLET PO SCH (09:38)
[2020-07-22] MEDS: LACTOBACILLUS ACIDOPHILUS CAP (BACID) PO SCH ×3 (09:38→18:24)
[2020-07-22] MEDS: DOCUSATE SODIUM 100MG CAPSULE PO SCH (09:39)
[2020-07-22] MEDS: VITAMIN D 1,000 INTERNATIONAL UNITS TABLET PO SCH (09:39)
[2020-07-22] MEDS: allopurinoL 100 MG TAB PO SCH (09:39)
[2020-07-22] MEDS: OMEPRAZOLE 20 MG CAP PO SCH (09:39)
[2020-07-22] MEDS: METOPROLOL SUCC (TopROL XL) 100MG *XL* TAB PO SCH (09:40)
[2020-07-22] MEDS: MICONAZOLE 2 % POWDER (DESENEX) TOP SCH ×2 (09:46→20:15)
--- NOTE | 2020-07-22 09:55 | IPNPDOC ---
Text Note Date of Service The patient was seen on 07/22/20. NOTE Her evaluated her left AKA stump today. She reports feeling comfortable. No pr oblems with the wound VAC suction over the weekend. She is postop day 3 after opening up the infected portion of the left AKA stump. There is minimal abscess. There are some necrotic adipose tissue that I debrided especially at the medial side. Bone is not exposed. Wound VAC was placed. Vital signs stable Afebrile Heart rate fluctuates but generally mildly tachycardic On exam Patient looks quite comfortable She is awake alert and oriented Remove the wound VAC foam and evaluated the wound. There are some leftover sutures and carolyn on the lateral side and I removed all of them. The lateral e dge remains coaptated the medial and central edge is open. The medial portion of the wound is clean. The central adipose tissue looks darkish, somewhat ischemic in appearance. There is no active drainage. No foul smell. No periwound erythema. There is on the possible subcutaneous induration or fluctuance swelling proximally. Impression and plan Infection at the left AKA stump Postop day 3 initial I&D and debridement with placement of wound VAC Wound VAC is placed again. We will have it changed Wednesday 6 easier to anticipate for me when I could take a look at the wound. I think she will probably need another trip to the OR at some point. I will let the subcutaneous tissue defecate with one or 2 wound VAC changes and most likely will need further debridement to remove ischemic, necrotic tissues. Antibiotics per medical team. Wound cultures from the OR still not available. Prior wound cultures show growth of Enterobacter, : Negative staph, Enterococcus faecalis and Proteus. VS,Fishbone, I+O VS, Fishbone, I+O Laboratory Tests 07/22/20 05:23 Vital Signs Date Time Temp Pulse Resp B/P (MAP) Pulse Ox O2 Delivery O2 Flow Rate FiO2 07/22/20 09:40 78 140/70 07/22/20 09:38 18 07/22/20 06:49 97.4 97 Room Air 07/19/20 14:40 2.0 I&O- Last 24 Hours up to 6 AM 07/22/20 05:59 Intake Total 1790 ml Output Total 475 ml Balance 1315 ml LIBBY SULLIVAN MD July 22, 2020 09:55
--- NOTE | 2020-07-22 11:58 | IPNPDOC ---
Text Note Date of Service The patient was seen on 07/22/20. NOTE SUBJECTIVE: -No complaints overnight OBJECTIVE: Const: NAD Head: NCAT EENT: EOMI, PERRLA, MMM Neck: Supple, no JVD Resp: Clear to auscultation bilaterally. CV: RRR, has 2/6 systolic murmur at RUSB EXTREMITIES: Left AKA wound with carolyn and sutures intact with leaking purulen t drainage noted from wound with surrounding erythema Abdomen: Obese, soft, NT, ND, no guarding or rebound. Neuro: Alert and oriented x3, speech appears clear on my conversation, grossly at baseline Psych: Pleasant and cooperative, AOX3 Labs: Reviewed WBC 10.6 hgb 9.4 platelets 389 na 139 K 4.1 Cr 0.57 CRP 16.3 Assessment: 70-year-old M with history of severe PAD, right AKA in 2006, and recent AKA on 06/28/[address] Bernardo, diabetic who is now admitted for post AKA stump infection now POD 3 s/p debridement. Postop wound infection: recent L AKA on 06/[address] Bernardo: -Failed outpatient oral antibiotics. -Continue cefepime. -f/u BCx -Dr. Zaragoza has been consulted, POD#3 s/p debridement with woundvac placement -restart xarelto -continue ASA -MRSA negative, vanc was discontinued on 07/20 DM: -Levemir 20 QAM, hold oral meds, SSI ACHS, FSBG ACHS, hypoglycemia protocol Chronic Atrial fibrillation: -rate controlled -Toprol 100mg daily succinate -resume xarelto Hypertension: -continue metoprolol -holding lisinopril and amlodipine HLD -continue statin CAD -continue asa, statin, metoprolol Gout -continue allopurinol GERD -continue PPI Depression -continue sertraline Glaucoma -continue home eye drops. Intertrigo -continue nystatin powder. DVT ppx: xarelto Dispo: medsurg VS,Fishbone, I+O VS, Fishbone, I+O Laboratory Tests 07/22/20 05:23 Vital Signs Date Time Temp Pulse Resp B/P (MAP) Pulse Ox O2 Delivery O2 Flow Rate FiO2 07/22/20 06:49 97.4 104 16 135/84 (101) 97 Room Air 07/19/20 14:40 2.0 I&O- Last 24 Hours up to 6 AM 07/22/20 06:00 Intake Total 1530 ml Output Total 0 ml Balance 1530 ml JUAN CARLOS FLORES MD July 22, 2020 09:28
[2020-07-22] MEDS: ACETAMINOPHEN TAB 650MG DOSE (2X325MG) PO PRN ×2 (13:01→18:27)
[2020-07-22] MEDS: GABAPENTIN 100 MG CAP PO PRN (13:01)
[2020-07-22 14:00] VITALS: BP 140/60
[2020-07-22] MEDS: rOPINIRole 0.25 MG TAB(REQUIP) PO SCH (20:13)
[2020-07-22] MEDS: SERTRALINE HCL 25 MG TABLET PO SCH (20:14)
[2020-07-22] MEDS: SENNA 8.6 MG TAB (SENOKOT) PO SCH (20:14)
[2020-07-22] MEDS: ROSUVASTATIN 10 MG TAB (CRESTOR) PO SCH (20:14)
[2020-07-22] MEDS: LATANOPROST 0.005% OPHTH SOLN 2.5 ML OU SCH (20:15)
[2020-07-22 22:00] VITALS: BP 122/79
[2020-07-23 06:00] VITALS: BP 136/78
[2020-07-23 06:09] LABS: HEMATOCRIT 31.6 % (36.0-47.0); HEMOGLOBIN 9.5 g/dl (12.0-15.5); MEAN CORPUSCULAR HEMOGLOBIN 25.8 pg (27.0-33.0); MEAN CORPUSCULAR HGB CONC 30.1 g/dl (32.0-36.5); MEAN CORPUSCULAR VOLUME 85.9 fl (80.0-96.0); PLATELET COUNT, AUTOMATED 383 10^3/uL (150-450); RED BLOOD COUNT 3.68 10^6/uL (4.00-5.40); WHITE BLOOD COUNT 10.3 10^3/uL (4.0-10.0)
[2020-07-23 06:26] LABS: BLOOD UREA NITROGEN 17 MG/DL (7-18); C REACTIVE PROTEIN QUANTITATIV 9.97 MG/DL (0.00-0.30); CALCIUM LEVEL 8.6 MG/DL (8.8-10.2); CARBON DIOXIDE LEVEL 25 MEQ/L (21-32); CHLORIDE LEVEL 107 MEQ/L (98-107); CREATININE FOR GFR 0.57 MG/DL (0.55-1.30); GLOMERULAR FILTRATION RATE > 60.0 (>45); GLUCOSE, FASTING 178 MG/DL (70-100); POTASSIUM SERUM 4.3 MEQ/L (3.5-5.1); SODIUM LEVEL 139 MEQ/L (136-145)
[2020-07-23] MEDS: LEVEMIR (INSULIN DETEMIR) 1 UNITS/0.01ML SC SCH (09:26)
[2020-07-23] MEDS: VITAMIN D 1,000 INTERNATIONAL UNITS TABLET PO SCH (09:27)
[2020-07-23] MEDS: OMEPRAZOLE 20 MG CAP PO SCH (09:27)
[2020-07-23] MEDS: HumaLOG INSULIN (NovoLOG) PER UNIT SC SCH ×4 (09:27→20:41)
[2020-07-23] MEDS: DOCUSATE SODIUM 100MG CAPSULE PO SCH (09:27)
[2020-07-23] MEDS: RIVAROXABAN 20 MG TAB (XARELTO) PO SCH (09:27)
[2020-07-23] MEDS: ASPIRIN 81 MG CHEW TABLET PO SCH (09:27)
[2020-07-23] MEDS: allopurinoL 100 MG TAB PO SCH (09:27)
[2020-07-23] MEDS: LACTOBACILLUS ACIDOPHILUS CAP (BACID) PO SCH ×3 (09:27→18:23)
[2020-07-23] MEDS: FERROUS SULFATE 325MG TAB PO SCH (09:27)
[2020-07-23] MEDS: OMEGA-3 1000MG CAPSULE PO SCH ×2 (09:27→21:42)
[2020-07-23] MEDS: traMADol 50 MG TAB PO SCH ×2 (09:28→21:43)
[2020-07-23] MEDS: METOPROLOL SUCC (TopROL XL) 100MG *XL* TAB PO SCH (09:33)
[2020-07-23] MEDS: CEFEPIME HCL 2 GM in D5W MINI-BAG PLUS 50 ML IV SCH ×2 (09:34→21:42)
[2020-07-23] MEDS: MICONAZOLE 2 % POWDER (DESENEX) TOP SCH ×2 (09:34→21:44)
--- NOTE | 2020-07-23 10:57 | IPNPDOC ---
Subjective Date Seen The patient was seen on 07/23/20. Subjective Chief Complaint/HPI Complains of pain at the left stump on minor movements. No fever or chills. no nausea or vomiting or diarrhea. Objective Physical Examination General Exam: Positive: Alert, Cooperative, No Acute Distress Eye Exam: Positive: PERRLA, Conjunctiva & lids normal, EOMI; Negative: Sclera icteric ENT Exam: Positive: Atraumatic, Mucous membr. moist/pink, Pharynx Normal Neck Exam: Positive: Supple; Negative: JVD, thyromegaly Chest Exam: Positive: Clear to auscultation, Normal air movement Heart Exam: Positive: Rate Normal, Irregular Rhythm, Normal S1, Normal S2; Negative: Murmurs, Rubs Abdomen Exam: Positive: Normal bowel sounds, Soft; Negative: Tenderness Extremity Exam: Positive: Other (bilateral AKA, left AKA stump iwth wound vac. ) Assessment /Plan Assessment 70-year-old M with history of severe PAD, right AKA in 2006, and recent AKA on 06/28/[address] 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 Postop wound infection: recent L AKA on 06/[address] Bernardo: Failed outpatient oral antibiotics. wound cultures from 07/16 enterococcus faecalis, staph aureus coagulase neg, proteus, Enterobacter aerogenes, 07/19 : ecoli, proteus mirabelis Continue cefepime. BCx neg Dr. Zaragoza has been consulted. s/p debridement with wound vac placement Severe PAD with bilateral AKAs. DM: Levemir and lispro sliding scale FSBG ACHS, hypoglycemia protocol Chronic Atrial fibrillation: rate controlled metoprolol, xarelto Hypertension: metoprolol holding lisinopril and amlodipine HLD statin CAD asa, statin, metoprolol Gout allopurinol GERD PPI Depression sertraline Glaucoma home eye drops. Intertriginous candidiasis nystatin powder. 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 Plan/VTE VTE Prophylaxis Ordered?: Yes VS, I&O, 24H, Fishbone Vital Signs/I&O Vital Signs Date Time Temp Pulse Resp B/P (MAP) Pulse Ox O2 Delivery O2 Flow Rate FiO2 07/23/20 09:33 106 146/76 07/23/20 09:28 17 Room Air 07/23/20 06:00 98.4 98 07/19/20 14:40 2.0 I&O- Last 24 Hours up to 6 AM 07/23/20 06:00 Intake Total 860 ml Output Total 0 ml Balance 860 ml Laboratory Data 24H LABS Laboratory Tests 2 07/22/20 12:02: Bedside Glucose (Misc Panel) 294H 07/22/20 16:39: Bedside Glucose (Misc Panel) 116H 07/22/20 20:21: Bedside Glucose (Misc Panel) 210H 07/23/20 05:27: Nucleated Red Blood Cells % (auto) 0.0, Anion Gap 7L, Glomerular Filtration Rate > 60.0, Calcium Level 8.6L, C-Reactive Protein, Quantitative 9.97H CBC/BMP Laboratory Tests 07/23/20 05:27 Microbiology Microbiology 07/19/20 Wound Culture - Final, Resulted Escherichia Coli Proteus Mirabilis 07/19/20 Anaerobic Culture, Resulted Pending 07/18/20 Blood Culture - Preliminary, Resulted No Growth after 72 hours. All specime... 07/18/20 Blood Culture - Preliminary, Resulted No Growth after 72 hours. All specime... VICENTE STEPHENS MD July 23, 2020 10:57
[2020-07-23 14:00] VITALS: BP 138/70
[2020-07-23] MEDS: ROSUVASTATIN 10 MG TAB (CRESTOR) PO SCH (21:42)
[2020-07-23] MEDS: SERTRALINE HCL 25 MG TABLET PO SCH (21:42)
[2020-07-23] MEDS: rOPINIRole 0.25 MG TAB(REQUIP) PO SCH (21:42)
[2020-07-23] MEDS: SENNA 8.6 MG TAB (SENOKOT) PO SCH (21:42)
[2020-07-23] MEDS: LATANOPROST 0.005% OPHTH SOLN 2.5 ML OU SCH (21:44)
[2020-07-23 22:00] VITALS: BP 134/72
[2020-07-24 06:00] VITALS: BP 128/82
[2020-07-24] MEDS: ASPIRIN 81 MG CHEW TABLET PO SCH (08:38)
[2020-07-24] MEDS: LACTOBACILLUS ACIDOPHILUS CAP (BACID) PO SCH ×3 (08:38→18:49)
[2020-07-24] MEDS: FERROUS SULFATE 325MG TAB PO SCH (08:38)
[2020-07-24] MEDS: OMEPRAZOLE 20 MG CAP PO SCH (08:40)
[2020-07-24] MEDS: VITAMIN D 1,000 INTERNATIONAL UNITS TABLET PO SCH (08:40)
[2020-07-24] MEDS: RIVAROXABAN 20 MG TAB (XARELTO) PO SCH (08:40)
[2020-07-24] MEDS: DOCUSATE SODIUM 100MG CAPSULE PO SCH (08:40)
[2020-07-24] MEDS: allopurinoL 100 MG TAB PO SCH (08:40)
[2020-07-24] MEDS: traMADol 50 MG TAB PO SCH ×2 (08:40→22:28)
[2020-07-24] MEDS: CEFEPIME HCL 2 GM in D5W MINI-BAG PLUS 50 ML IV SCH ×2 (08:43→22:30)
[2020-07-24] MEDS: METOPROLOL SUCC (TopROL XL) 100MG *XL* TAB PO SCH (08:43)
[2020-07-24] MEDS: HumaLOG INSULIN (NovoLOG) PER UNIT SC SCH ×4 (08:47→21:00)
[2020-07-24] MEDS: MICONAZOLE 2 % POWDER (DESENEX) TOP SCH ×2 (08:48→22:30)
[2020-07-24] MEDS: LEVEMIR (INSULIN DETEMIR) 1 UNITS/0.01ML SC SCH (08:48)
[2020-07-24] MEDS: OMEGA-3 1000MG CAPSULE PO SCH ×2 (08:49→22:29)
--- NOTE | 2020-07-24 11:58 | IPNPDOC ---
Subjective Date Seen The patient was seen on 07/24/20. Subjective Chief Complaint/HPI No complaints overnight. No fever or chills. Objective Physical Examination General Exam: Positive: Alert, Cooperative, No Acute Distress Eye Exam: Positive: PERRLA, Conjunctiva & lids normal, EOMI; Negative: Sclera icteric ENT Exam: Positive: Atraumatic, Mucous membr. moist/pink, Pharynx Normal Neck Exam: Positive: Supple; Negative: JVD, thyromegaly Chest Exam: Positive: Clear to auscultation, Normal air movement Heart Exam: Positive: Rate Normal, Irregular Rhythm, Normal S1, Normal S2; Negative: Murmurs, Rubs Abdomen Exam: Positive: Normal bowel sounds, Soft; Negative: Tenderness Extremity Exam: Positive: Other (bilateral AKA, left AKA stump iwth wound vac. ) Assessment /Plan Assessment 70-year-old M with history of severe PAD, right AKA in 2006, and recent AKA on 06/28/[address] 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 Bernardo: poor dressing changes at [facility] resulting in post op wound infection Failed outpatient oral antibiotics. wound cultures from 07/16 enterococcus faecalis, staph aureus coagulase neg, proteus, Enterobacter aerogenes, 07/19 : ecoli, proteus mirabelis Continue cefepime x 7 days. BCx neg s/p debridement with wound vac placement by Dr Zaragoza. Dr griggs will take over the wound care for this patietn from Dr Zaragoza. Severe PAD with bilateral AKAs. DM: Levemir and lispro sliding scale FSBG ACHS, hypoglycemia protocol Chronic Atrial fibrillation: rate controlled metoprolol, xarelto Hypertension: metoprolol holding lisinopril and amlodipine HLD statin CAD asa, statin, metoprolol Gout allopurinol GERD PPI Depression sertraline Glaucoma home eye drops. Intertriginous candidiasis nystatin powder. 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 Plan/VTE VTE Prophylaxis Ordered?: Yes VS, I&O, 24H, [place] Vital Signs/I&O Vital Signs Date Time Temp Pulse Resp B/P (MAP) Pulse Ox O2 Delivery O2 Flow Rate FiO2 07/24/20 08:43 102 110/56 07/24/20 08:40 14 07/24/20 06:00 98.6 96 Room Air 07/19/20 14:40 2.0 I&O- Last 24 Hours up to 6 AM 07/24/20 06:00 Intake Total 990 ml Balance 990 ml Laboratory Data 24H LABS Laboratory Tests 2 07/23/20 16:54: Bedside Glucose (Misc Panel) 138H 07/23/20 20:00: Bedside Glucose (Misc Panel) 244H 07/24/20 05:33: C-Reactive Protein, Quantitative 5.03H 07/24/20 06:05: Bedside Glucose (Misc Panel) 180H 07/24/20 11:14: Bedside Glucose (Misc Panel) 233H Microbiology Microbiology 07/19/20 Wound Culture - Final, Resulted Escherichia Coli Proteus Mirabilis 07/19/20 Anaerobic Culture, Resulted Pending 07/18/20 Blood Culture - Final, Complete NO GROWTH AFTER 5 DAYS 07/18/20 Blood Culture - Final, Complete NO GROWTH AFTER 5 DAYS VICENTE STEPHENS MD July 24, 2020 11:58
[2020-07-24 14:00] VITALS: BP 132/77
[2020-07-24] MEDS: CYCLOBENZAPRINE 10MG TABLET PO PRN (18:55)
[2020-07-24] MEDS: ACETAMINOPHEN TAB 650MG DOSE (2X325MG) PO PRN (18:56)
[2020-07-24] MEDS ORDERED: MORPHINE 2 MG/ML 1ML VIAL (J2270) IV ONE (20:30)
[2020-07-24 22:00] VITALS: BP 138/70
[2020-07-24] MEDS: ROSUVASTATIN 10 MG TAB (CRESTOR) PO SCH (22:29)
[2020-07-24] MEDS: SENNA 8.6 MG TAB (SENOKOT) PO SCH (22:29)
[2020-07-24] MEDS: SERTRALINE HCL 25 MG TABLET PO SCH (22:29)
[2020-07-24] MEDS: rOPINIRole 0.25 MG TAB(REQUIP) PO SCH (22:29)
[2020-07-24] MEDS: LATANOPROST 0.005% OPHTH SOLN 2.5 ML OU SCH (22:30)
[2020-07-25 06:00] VITALS: BP 150/78
[2020-07-25] MEDS: metroNIDAZOLE (FLAGYL) 500MG TABLET PO SCH ×3 (06:00→22:15)
[2020-07-25] MEDS: METOPROLOL SUCC (TopROL XL) 100MG *XL* TAB PO SCH (09:22)
[2020-07-25] MEDS: VITAMIN D 1,000 INTERNATIONAL UNITS TABLET PO SCH (09:23)
[2020-07-25] MEDS: DOCUSATE SODIUM 100MG CAPSULE PO SCH (09:23)
[2020-07-25] MEDS: RIVAROXABAN 20 MG TAB (XARELTO) PO SCH (09:23)
[2020-07-25] MEDS: OMEPRAZOLE 20 MG CAP PO SCH (09:23)
[2020-07-25] MEDS: ASPIRIN 81 MG CHEW TABLET PO SCH (09:23)
[2020-07-25] MEDS: OMEGA-3 1000MG CAPSULE PO SCH ×2 (09:23→22:15)
[2020-07-25] MEDS: LACTOBACILLUS ACIDOPHILUS CAP (BACID) PO SCH ×3 (09:23→18:03)
[2020-07-25] MEDS: traMADol 50 MG TAB PO SCH ×2 (09:24→22:17)
[2020-07-25] MEDS: allopurinoL 100 MG TAB PO SCH (09:24)
[2020-07-25] MEDS: FERROUS SULFATE 325MG TAB PO SCH (09:24)
[2020-07-25] MEDS: HumaLOG INSULIN (NovoLOG) PER UNIT SC SCH ×4 (09:25→21:00)
[2020-07-25] MEDS: MICONAZOLE 2 % POWDER (DESENEX) TOP SCH ×2 (09:25→22:17)
[2020-07-25] MEDS: LEVEMIR (INSULIN DETEMIR) 1 UNITS/0.01ML SC SCH (09:26)
[2020-07-25] MEDS: CEFEPIME HCL 2 GM in D5W MINI-BAG PLUS 50 ML IV SCH ×2 (09:26→22:15)
--- NOTE | 2020-07-25 09:29 | IPNPDOC ---
Subjective Date Seen The patient was seen on 07/25/20. Subjective Chief Complaint/HPI No complaints this morning. Wound vac in place. No fever or chills. Objective Physical Examination General Exam: Positive: Alert, Cooperative, No Acute Distress Eye Exam: Positive: PERRLA, Conjunctiva & lids normal, EOMI; Negative: Sclera icteric ENT Exam: Positive: Atraumatic, Mucous membr. moist/pink, Pharynx Normal Neck Exam: Positive: Supple; Negative: JVD, thyromegaly Chest Exam: Positive: Clear to auscultation, Normal air movement Heart Exam: Positive: Rate Normal, Irregular Rhythm, Normal S1, Normal S2; Negative: Murmurs, Rubs Abdomen Exam: Positive: Normal bowel sounds, Soft; Negative: Tenderness Extremity Exam: Positive: Other (bilateral AKA, left AKA stump iwth wound vac. ) Assessment /Plan Assessment 70-year-old M with history of severe PAD, right AKA in 2006, and recent AKA on 06/28/[address] 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 Bernardo: poor dressing changes at [facility] resulting in post op wound infection Failed outpatient oral antibiotics. wound cultures from 07/16 enterococcus faecalis, staph aureus coagulase neg, proteus, Enterobacter aerogenes, 07/19 : ecoli, proteus mirabelis Anaerobic cultures also positive Continue cefepime x 7 days. will add metronidazole for anareobes. BCx neg s/p debridement with wound vac placement by Dr Zaragoza. Dr griggs will take over the wound care for this patient from Dr Zaragoza. Severe PAD with bilateral AKAs. DM: Levemir and lispro sliding scale FSBG ACHS, hypoglycemia protocol Chronic Atrial fibrillation: rate controlled metoprolol, xarelto Hypertension: metoprolol , started lisinopril lower dose. holding amlodipine HLD statin CAD asa, statin, metoprolol Gout allopurinol GERD PPI Depression sertraline Glaucoma home eye drops. Intertriginous candidiasis nystatin powder. 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 Plan/VTE VTE Prophylaxis Ordered?: Yes VS, I&O, 24H, Fishbone Vital Signs/I&O Vital Signs Date Time Temp Pulse Resp B/P (MAP) Pulse Ox O2 Delivery O2 Flow Rate FiO2 07/25/20 06:00 97.0 75 16 150/78 (102) 100 Room Air 07/19/20 14:40 2.0 I&O- Last 24 Hours up to 6 AM 07/25/20 06:00 Intake Total 1586 ml Output Total 0 ml Balance 1586 ml Laboratory Data 24H LABS Laboratory Tests 2 07/24/20 11:14: Bedside Glucose (Misc Panel) 233H 07/24/20 16:57: Bedside Glucose (Misc Panel) 120H 07/24/20 22:24: Bedside Glucose (Misc Panel) 202H 07/25/20 06:26: Bedside Glucose (Misc Panel) 183H Microbiology Microbiology 07/19/20 Wound Culture - Final, Complete Escherichia Coli Proteus Mirabilis 07/19/20 Anaerobic Culture - Final, Complete Bifidobacterium Species Bacteroides Ovatus 07/18/20 Blood Culture - Final, Complete NO GROWTH AFTER 5 DAYS 07/18/20 Blood Culture - Final, Complete NO GROWTH AFTER 5 DAYS VICENTE STEPHENS MD July 25, 2020 09:29
--- NOTE | 2020-07-25 10:15 | IPNPDOC ---
Date Seen The patient was seen on 07/25/20. Progress Note Patient seen and examined. She was readmitted with poor wound healing left above-knee amputation stump. The patient was healing very well before she left the hospital, and then things slowly deteriorated over her outpatient course, please see clinic documentation from her multiple postop follow-ups. She is now readmitted from the senior care and is status post debridement of nonviable tissue at the distal stump. Unfortunately, this is a patient who is very challenging to heal at baseline due to obesity, diabetes, and poor muscle and fascia quality. With very limited wound care outpatient, it is very difficult to prevent infection and help the patient to heal. Therefore, we appreciate Dr. Sepulveda debriding the left AKA stump in my absence, but now that I have returned, I will take over the care of this patient. I anticipate her to have a long length of stay so that we can make sure she is mostly healed before discharge. Her wound VAC was changed yesterday, and the patient said everything was okay, so we will wait until tomorrow or Wednesday to remove the wound VAC and check and see if she needs further debridement or intervention. She is agreeable to this plan. We continue to encourage tight glucose control, high-protein diet to help with wound healing. We will follow the patient closely. We appreciate the opportunity to participate in the care of this patient. VS, I&O, 24H, [place] Vital Signs/I&O Vital Signs Date Time Temp Pulse Resp B/P (MAP) Pulse Ox O2 Delivery O2 Flow Rate FiO2 07/25/20 09:24 15 07/25/20 09:22 96 166/92 07/25/20 06:00 97.0 100 Room Air 07/19/20 14:40 2.0 I&O- Last 24 Hours up to 6 AM 07/25/20 05:59 Intake Total 1586 ml Output Total 0 ml Balance 1586 ml Laboratory Data 24H LABS Laboratory Tests 2 07/24/20 11:14: Bedside Glucose (Misc Panel) 233H 07/24/20 16:57: Bedside Glucose (Misc Panel) 120H 07/24/20 22:24: Bedside Glucose (Misc Panel) 202H 07/25/20 06:26: Bedside Glucose (Misc Panel) 183H Microbiology Microbiology 07/19/20 Wound Culture - Final, Complete Escherichia Coli Proteus Mirabilis 07/19/20 Anaerobic Culture - Final, Complete Bifidobacterium Species Bacteroides Ovatus 07/18/20 Blood Culture - Final, Complete NO GROWTH AFTER 5 DAYS 07/18/20 Blood Culture - Final, Complete NO GROWTH AFTER 5 DAYS VINEET OLIVO MD July 25, 2020 10:15
[2020-07-25 22:00] VITALS: BP 141/77
[2020-07-25] MEDS: SERTRALINE HCL 25 MG TABLET PO SCH (22:15)
[2020-07-25] MEDS: SENNA 8.6 MG TAB (SENOKOT) PO SCH (22:15)
[2020-07-25] MEDS: ROSUVASTATIN 10 MG TAB (CRESTOR) PO SCH (22:16)
[2020-07-25] MEDS: rOPINIRole 0.25 MG TAB(REQUIP) PO SCH (22:16)
[2020-07-25] MEDS: LATANOPROST 0.005% OPHTH SOLN 2.5 ML OU SCH (22:17)
[2020-07-26] MEDS: metroNIDAZOLE (FLAGYL) 500MG TABLET PO SCH ×3 (05:06→21:59)
[2020-07-26 06:00] VITALS: BP 145/65
[2020-07-26 08:38] LABS: BASO # 0.1 10^3/uL (0.0-0.2); BASO % 0.5 % (0.0-1.0); EOS # 0.4 10^3/uL (0.0-0.5); EOS % 3.7 % (0.0-3.0); HEMATOCRIT 32.6 % (36.0-47.0); LYMPH # 1.5 10^3/uL (1.5-5.0); MEAN CORPUSCULAR HEMOGLOBIN 25.8 pg (27.0-33.0); MEAN CORPUSCULAR HGB CONC 30.7 g/dl (32.0-36.5); MEAN CORPUSCULAR VOLUME 84.2 fl (80.0-96.0); MONO # 0.7 10^3/uL (0.0-0.8); MONO % 6.2 % (2.0-8.0); NEUTROPHILS # 8.9 10^3/uL (1.5-8.5); NEUTROPHILS % 75.3 % (36.0-66.0); PLATELET COUNT, AUTOMATED 343 10^3/uL (150-450); RED BLOOD COUNT 3.87 10^6/uL (4.00-5.40); WHITE BLOOD COUNT 11.9 10^3/uL (4.0-10.0)
[2020-07-26] MEDS: allopurinoL 100 MG TAB PO SCH (08:52)
[2020-07-26] MEDS: FERROUS SULFATE 325MG TAB PO SCH (08:52)
[2020-07-26] MEDS: LACTOBACILLUS ACIDOPHILUS CAP (BACID) PO SCH ×3 (08:52→18:39)
[2020-07-26] MEDS: VITAMIN D 1,000 INTERNATIONAL UNITS TABLET PO SCH (08:52)
[2020-07-26] MEDS: CEFEPIME HCL 2 GM in D5W MINI-BAG PLUS 50 ML IV SCH (08:52)
[2020-07-26] MEDS: RIVAROXABAN 20 MG TAB (XARELTO) PO SCH (08:52)
[2020-07-26] MEDS: ASPIRIN 81 MG CHEW TABLET PO SCH (08:52)
[2020-07-26] MEDS: DOCUSATE SODIUM 100MG CAPSULE PO SCH (08:52)
[2020-07-26] MEDS: OMEPRAZOLE 20 MG CAP PO SCH (08:52)
[2020-07-26] MEDS: HumaLOG INSULIN (NovoLOG) PER UNIT SC SCH ×4 (08:53→21:00)
[2020-07-26] MEDS: LEVEMIR (INSULIN DETEMIR) 1 UNITS/0.01ML SC SCH (08:53)
[2020-07-26] MEDS: OMEGA-3 1000MG CAPSULE PO SCH ×2 (08:53→21:59)
[2020-07-26] MEDS: traMADol 50 MG TAB PO SCH ×2 (08:55→22:00)
[2020-07-26] MEDS: METOPROLOL SUCC (TopROL XL) 100MG *XL* TAB PO SCH (08:57)
[2020-07-26 09:00] LABS: BLOOD UREA NITROGEN 13 MG/DL (7-18); CALCIUM LEVEL 8.9 MG/DL (8.8-10.2); CARBON DIOXIDE LEVEL 25 MEQ/L (21-32); CHLORIDE LEVEL 106 MEQ/L (98-107); CREATININE FOR GFR 0.66 MG/DL (0.55-1.30); GLOMERULAR FILTRATION RATE > 60.0 (>45); GLUCOSE, FASTING 184 MG/DL (70-100); POTASSIUM SERUM 4.3 MEQ/L (3.5-5.1); SODIUM LEVEL 139 MEQ/L (136-145)
[2020-07-26] MEDS: MICONAZOLE 2 % POWDER (DESENEX) TOP SCH ×2 (09:16→22:01)
--- NOTE | 2020-07-26 10:14 | IPNPDOC ---
Subjective Date Seen The patient was seen on 07/26/20. Subjective Chief Complaint/HPI No issues overnight. Not much pain. Objective Physical Examination General Exam: Positive: Alert, Cooperative, No Acute Distress Eye Exam: Positive: PERRLA, Conjunctiva & lids normal, EOMI; Negative: Sclera icteric ENT Exam: Positive: Atraumatic, Mucous membr. moist/pink, Pharynx Normal Neck Exam: Positive: Supple; Negative: JVD, thyromegaly Chest Exam: Positive: Clear to auscultation, Normal air movement Heart Exam: Positive: Rate Normal, Irregular Rhythm, Normal S1, Normal S2; Negative: Murmurs, Rubs Abdomen Exam: Positive: Normal bowel sounds, Soft; Negative: Tenderness Extremity Exam: Positive: Other (bilateral AKA, left AKA stump iwth wound vac. ) Assessment /Plan Assessment 70-year-old M with history of severe PAD, right AKA in 2006, and recent AKA on 06/28/[address] 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 Bernardo: poor dressing changes at [facility] resulting in post op wound infection Failed outpatient oral antibiotics. wound cultures from 07/16 enterococcus faecalis, staph aureus coagulase neg, proteus, Enterobacter aerogenes, 07/19 : ecoli, proteus mirabelis Anaerobic cultures also positive finished cefepime x 8 days. metronidazole for anareobes. BCx neg s/p debridement with wound vac placement by Dr Zaragoza. Dr griggs will take over the wound care for this patient from Dr Zaragoza. Severe PAD with bilateral AKAs. DM: Levemir and lispro sliding scale FSBG ACHS, hypoglycemia protocol Chronic Atrial fibrillation: rate controlled metoprolol, xarelto Hypertension: metoprolol , started lisinopril lower dose. holding amlodipine HLD statin CAD asa, statin, metoprolol Gout allopurinol GERD PPI Depression sertraline Glaucoma home eye drops. Intertriginous candidiasis nystatin powder. 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 Will Change to ALC status. Plan/VTE VTE Prophylaxis Ordered?: Yes VS, I&O, 24H, Fishbone Vital Signs/I&O Vital Signs Date Time Temp Pulse Resp B/P (MAP) Pulse Ox O2 Delivery O2 Flow Rate FiO2 07/26/20 08:57 101 135/78 07/26/20 08:55 16 07/26/20 06:00 98.8 96 Room Air I&O- Last 24 Hours up to 6 AM 07/26/20 06:00 Intake Total 1290 ml Balance 1290 ml Laboratory Data 24H LABS Laboratory Tests 2 07/25/20 12:18: Bedside Glucose (Misc Panel) 227H 07/25/20 17:14: Bedside Glucose (Misc Panel) 115 07/25/20 20:30: Bedside Glucose (Misc Panel) 179H 07/26/20 06:34: Bedside Glucose (Misc Panel) 160H 07/26/20 08:21: Immature Granulocyte % (Auto) 1.3, Neutrophils (%) (Auto) 75.3H, Lymphocytes (%) (Auto) 13.0L, Monocytes (%) (Auto) 6.2, Eosinophils (%) (Auto) 3.7H, Basophils (%) (Auto) 0.5, Neutrophils # (Auto) 8.9H, Lymphocytes # (Auto) 1.5, Monocytes # (Auto) 0.7, Eosinophils # (Auto) 0.4, Basophils # (Auto) 0.1, Nucleated Red Blood Cells % (auto) 0.0, Anion Gap 8, Glomerular Filtration Rate > 60.0, Calcium Level 8.9 CBC/BMP Laboratory Tests 07/26/20 08:21 Microbiology Microbiology 07/19/20 Wound Culture - Final, Complete Escherichia Coli Proteus Mirabilis 07/19/20 Anaerobic Culture - Final, Complete Bifidobacterium Species Bacteroides Ovatus 07/18/20 Blood Culture - Final, Complete NO GROWTH AFTER 5 DAYS 07/18/20 Blood Culture - Final, Complete NO GROWTH AFTER 5 DAYS VICENTE STEPHENS MD July 26, 2020 10:14
[2020-07-26 14:00] VITALS: BP 140/60
[2020-07-26] MEDS: rOPINIRole 0.25 MG TAB(REQUIP) PO SCH (21:59)
[2020-07-26 22:00] VITALS: BP 123/80
[2020-07-26] MEDS: ROSUVASTATIN 10 MG TAB (CRESTOR) PO SCH (22:00)
[2020-07-26] MEDS: SENNA 8.6 MG TAB (SENOKOT) PO SCH (22:00)
[2020-07-26] MEDS: LATANOPROST 0.005% OPHTH SOLN 2.5 ML OU SCH (22:01)
[2020-07-26] MEDS: SERTRALINE HCL 25 MG TABLET PO SCH (22:01)
[2020-07-27] MEDS: metroNIDAZOLE (FLAGYL) 500MG TABLET PO SCH ×3 (05:04→22:09)
[2020-07-27 06:00] VITALS: BP 185/88
[2020-07-27] MEDS: allopurinoL 100 MG TAB PO SCH (09:12)
[2020-07-27] MEDS: OMEPRAZOLE 20 MG CAP PO SCH (09:12)
[2020-07-27] MEDS: DOCUSATE SODIUM 100MG CAPSULE PO SCH (09:12)
[2020-07-27] MEDS: FERROUS SULFATE 325MG TAB PO SCH (09:12)
[2020-07-27] MEDS: LACTOBACILLUS ACIDOPHILUS CAP (BACID) PO SCH ×3 (09:12→16:56)
[2020-07-27] MEDS: RIVAROXABAN 20 MG TAB (XARELTO) PO SCH (09:12)
[2020-07-27] MEDS: OMEGA-3 1000MG CAPSULE PO SCH ×2 (09:12→22:11)
[2020-07-27] MEDS: VITAMIN D 1,000 INTERNATIONAL UNITS TABLET PO SCH (09:12)
[2020-07-27] MEDS: ASPIRIN 81 MG CHEW TABLET PO SCH (09:12)
[2020-07-27] MEDS: traMADol 50 MG TAB PO SCH ×2 (09:13→22:10)
[2020-07-27] MEDS: LEVEMIR (INSULIN DETEMIR) 1 UNITS/0.01ML SC SCH (09:13)
[2020-07-27] MEDS: MICONAZOLE 2 % POWDER (DESENEX) TOP SCH ×2 (09:14→22:11)
[2020-07-27] MEDS: HumaLOG INSULIN (NovoLOG) PER UNIT SC SCH ×4 (09:14→22:13)
[2020-07-27] MEDS: METOPROLOL SUCC (TopROL XL) 100MG *XL* TAB PO SCH (09:17)
[2020-07-27] MEDS ORDERED: MORPHINE 2 MG/ML 1ML VIAL (J2270) IV ONE (14:15)
[2020-07-27] MEDS: CYCLOBENZAPRINE 10MG TABLET PO PRN (16:56)
[2020-07-27] MEDS: GABAPENTIN 100 MG CAP PO PRN (16:56)
[2020-07-27] MEDS: ACETAMINOPHEN TAB 650MG DOSE (2X325MG) PO PRN (16:56)
--- NOTE | 2020-07-27 17:56 | IPNPDOC ---
Date Seen The patient was seen on 07/27/20. Progress Note Patient seen and examined. Her wound VAC is intact over the left AKA stump and was replaced on Wednesday by the wound care nurses. There is no erythema on the stump and the wound appears smaller. This is all wonderful. We will take the wound VAC off tomorrow and take a look at things. If everything looks good, we'll have the nurses replace a wound VAC on Wednesday. If any further debridement needs to be done, we can also plan to schedule that as well. She is in good spirits today and says she is feeling better. That's great as well. We a ppreciate the hospitalist excellent care of this patient and should continue IV antibiotics for polymicrobial wound infection status post left AKA. We appreciate the opportunity to participate in the care of this patient. VS, I&O, 24H, Fishbone Vital Signs/I&O Vital Signs Date Time Temp Pulse Resp B/P (MAP) Pulse Ox O2 Delivery O2 Flow Rate FiO2 07/27/20 14:42 17 07/27/20 09:17 98 143/66 07/27/20 06:00 96.8 98 Room Air I&O- Last 24 Hours up to 6 AM 07/27/20 06:00 Intake Total 1790 ml Balance 1790 ml Laboratory Data 24H LABS Laboratory Tests 2 07/26/20 21:17: Bedside Glucose (Misc Panel) 156H 07/27/20 06:16: Bedside Glucose (Misc Panel) 164H 07/27/20 11:42: Bedside Glucose (Misc Panel) 264H 07/27/20 16:30: Bedside Glucose (Misc Panel) 140H Microbiology Microbiology 07/19/20 Wound Culture - Final, Complete Escherichia Coli Proteus Mirabilis 07/19/20 Anaerobic Culture - Final, Complete Bifidobacterium Species Bacteroides Ovatus 07/18/20 Blood Culture - Final, Complete NO GROWTH AFTER 5 DAYS 07/18/20 Blood Culture - Final, Complete NO GROWTH AFTER 5 DAYS VINEET OLIVO MD July 27, 2020 17:56
[2020-07-27] MEDS: ROSUVASTATIN 10 MG TAB (CRESTOR) PO SCH (22:09)
[2020-07-27] MEDS: SERTRALINE HCL 25 MG TABLET PO SCH (22:09)
[2020-07-27] MEDS: rOPINIRole 0.25 MG TAB(REQUIP) PO SCH (22:10)
[2020-07-27] MEDS: SENNA 8.6 MG TAB (SENOKOT) PO SCH (22:10)
[2020-07-27] MEDS: LATANOPROST 0.005% OPHTH SOLN 2.5 ML OU SCH (22:11)
[2020-07-28] MEDS: metroNIDAZOLE (FLAGYL) 500MG TABLET PO SCH ×3 (05:26→22:05)
[2020-07-28 06:00] VITALS: BP 152/86
[2020-07-28] MEDS: HumaLOG INSULIN (NovoLOG) PER UNIT SC SCH ×4 (08:28→21:00)
[2020-07-28] MEDS: ASPIRIN 81 MG CHEW TABLET PO SCH (08:28)
[2020-07-28] MEDS: OMEGA-3 1000MG CAPSULE PO SCH ×2 (08:28→20:42)
[2020-07-28] MEDS: OMEPRAZOLE 20 MG CAP PO SCH (08:28)
[2020-07-28] MEDS: VITAMIN D 1,000 INTERNATIONAL UNITS TABLET PO SCH (08:29)
[2020-07-28] MEDS: RIVAROXABAN 20 MG TAB (XARELTO) PO SCH (08:29)
[2020-07-28] MEDS: FERROUS SULFATE 325MG TAB PO SCH (08:29)
[2020-07-28] MEDS: DOCUSATE SODIUM 100MG CAPSULE PO SCH (08:29)
[2020-07-28] MEDS: LACTOBACILLUS ACIDOPHILUS CAP (BACID) PO SCH ×3 (08:29→18:04)
[2020-07-28] MEDS: allopurinoL 100 MG TAB PO SCH (08:29)
[2020-07-28] MEDS: LEVEMIR (INSULIN DETEMIR) 1 UNITS/0.01ML SC SCH (08:29)
[2020-07-28] MEDS: traMADol 50 MG TAB PO SCH ×2 (08:30→20:41)
[2020-07-28] MEDS: MICONAZOLE 2 % POWDER (DESENEX) TOP SCH ×2 (08:31→20:43)
[2020-07-28] MEDS: METOPROLOL SUCC (TopROL XL) 100MG *XL* TAB PO SCH (08:33)
[2020-07-28] MEDS: ACETAMINOPHEN TAB 650MG DOSE (2X325MG) PO PRN (18:12)
[2020-07-28] MEDS: rOPINIRole 0.25 MG TAB(REQUIP) PO SCH (20:40)
[2020-07-28] MEDS: SENNA 8.6 MG TAB (SENOKOT) PO SCH (20:40)
[2020-07-28] MEDS: ROSUVASTATIN 10 MG TAB (CRESTOR) PO SCH (20:42)
[2020-07-28] MEDS: SERTRALINE HCL 25 MG TABLET PO SCH (20:42)
[2020-07-28] MEDS: LATANOPROST 0.005% OPHTH SOLN 2.5 ML OU SCH (20:43)
[2020-07-29 06:00] VITALS: BP 142/88
[2020-07-29] MEDS: metroNIDAZOLE (FLAGYL) 500MG TABLET PO SCH ×3 (06:16→21:23)
--- NOTE | 2020-07-29 08:04 | IPNPDOC ---
Date Seen The patient was seen on 07/29/20. Progress Note Patient seen and examined and her wound VAC was removed from the left AKA. She is currently on Wednesday wound VAC changed schedule. On exam, there is no erythema around the wound, no odor or foul drainage noted. However, there is no granulation at the base. There is brown nonviable fat, fibrinous exudate, but no significant granulation tissue. I think the patient would do well with further debridement of the wound base. We need to get back to some healthy tissue in order to get this to heal. There is a high risk for nonhealing now that she has had a polymicrobial infection resulting from inconsistent dressing changes and contamination with stool. She has been receiving excellent wound care from her wound care nurses here, and we are pleased that she has made some progress, but I feel further debridement as needed at this point. We discussed the risks benefits and alternatives to surgical debridement of her left AKA stump, possible wound VAC placement and the patient is agreeable to proceed. We will try to get this on the schedule for tomorrow. If we are able to do so, she will need to be nothing by mouth after midnight. We appreciate the opportunity to participate in the care of this patient. VS, I&O, 24H, James Vital Signs/I&O Vital Signs Date Time Temp Pulse Resp B/P (MAP) Pulse Ox O2 Delivery O2 Flow Rate FiO2 07/29/20 06:00 96.4 95 16 142/88 (106) 96 Room Air I&O- Last 24 Hours up to 6 AM 07/29/20 06:00 Intake Total 1160 ml Output Total 100 ml Balance 1060 ml Laboratory Data 24H LABS Laboratory Tests 2 07/28/20 11:37: Bedside Glucose (Misc Panel) 304H 07/28/20 16:34: Bedside Glucose (Misc Panel) 141H 07/28/20 20:01: Bedside Glucose (Misc Panel) 181H Microbiology Microbiology 07/19/20 Wound Culture - Final, Complete Escherichia Coli Proteus Mirabilis 07/19/20 Anaerobic Culture - Final, Complete Bifidobacterium Species Bacteroides Ovatus VINEET OLIVO MD July 29, 2020 08:04
[2020-07-29 08:32] LABS: HEMATOCRIT 37.5 % (36.0-47.0); HEMOGLOBIN 11.3 g/dl (12.0-15.5); MEAN CORPUSCULAR HEMOGLOBIN 25.7 pg (27.0-33.0); MEAN CORPUSCULAR HGB CONC 30.1 g/dl (32.0-36.5); MEAN CORPUSCULAR VOLUME 85.4 fl (80.0-96.0); PLATELET COUNT, AUTOMATED 340 10^3/uL (150-450); RED BLOOD COUNT 4.39 10^6/uL (4.00-5.40); WHITE BLOOD COUNT 11.5 10^3/uL (4.0-10.0)
[2020-07-29 08:53] LABS: BLOOD UREA NITROGEN 12 MG/DL (7-18); CALCIUM LEVEL 8.7 MG/DL (8.8-10.2); CARBON DIOXIDE LEVEL 27 MEQ/L (21-32); CHLORIDE LEVEL 107 MEQ/L (98-107); CREATININE FOR GFR 0.64 MG/DL (0.55-1.30); GLOMERULAR FILTRATION RATE > 60.0 (>45); GLUCOSE, FASTING 191 MG/DL (70-100); POTASSIUM SERUM 4.6 MEQ/L (3.5-5.1); SODIUM LEVEL 140 MEQ/L (136-145)
[2020-07-29] MEDS: traMADol 50 MG TAB PO SCH ×2 (09:00→21:22)
[2020-07-29] MEDS: allopurinoL 100 MG TAB PO SCH (09:28)
[2020-07-29] MEDS: ASPIRIN 81 MG CHEW TABLET PO SCH (09:28)
[2020-07-29] MEDS: LACTOBACILLUS ACIDOPHILUS CAP (BACID) PO SCH ×3 (09:29→17:48)
[2020-07-29] MEDS: OMEGA-3 1000MG CAPSULE PO SCH ×2 (09:29→21:22)
[2020-07-29] MEDS: VITAMIN D 1,000 INTERNATIONAL UNITS TABLET PO SCH (09:29)
[2020-07-29] MEDS: OMEPRAZOLE 20 MG CAP PO SCH (09:29)
[2020-07-29] MEDS: DOCUSATE SODIUM 100MG CAPSULE PO SCH (09:29)
[2020-07-29] MEDS: FERROUS SULFATE 325MG TAB PO SCH (09:29)
[2020-07-29] MEDS: METOPROLOL SUCC (TopROL XL) 100MG *XL* TAB PO SCH (09:31)
[2020-07-29] MEDS: LEVEMIR (INSULIN DETEMIR) 1 UNITS/0.01ML SC SCH (09:32)
[2020-07-29] MEDS: HumaLOG INSULIN (NovoLOG) PER UNIT SC SCH ×4 (09:33→21:00)
[2020-07-29] MEDS: MICONAZOLE 2 % POWDER (DESENEX) TOP SCH ×2 (09:34→21:00)
--- NOTE | 2020-07-29 10:49 | IPNPDOC ---
Subjective Date Seen The patient was seen on 07/29/20. Subjective Chief Complaint/HPI No complaint this morning. Had wound vac changed. planned for debridement on 07/30/20 Objective Physical Examination General Exam: Positive: Alert, Cooperative, No Acute Distress Eye Exam: Positive: PERRLA, Conjunctiva & lids normal, EOMI; Negative: Sclera icteric ENT Exam: Positive: Atraumatic, Mucous membr. moist/pink, Pharynx Normal Neck Exam: Positive: Supple; Negative: JVD, thyromegaly Chest Exam: Positive: Clear to auscultation, Normal air movement Heart Exam: Positive: Rate Normal, Irregular Rhythm, Normal S1, Normal S2; Negative: Murmurs, Rubs Abdomen Exam: Positive: Normal bowel sounds, Soft; Negative: Tenderness Extremity Exam: Positive: Other (bilateral AKA, left AKA stump iwth wound vac. ) Assessment /Plan Assessment 70-year-old M with history of severe PAD, right AKA in 2006, and recent AKA on 06/28/[address] 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 Bernardo: poor dressing changes at [facility] resulting in post op wound infection Failed outpatient oral antibiotics. wound cultures from 07/16 enterococcus faecalis, staph aureus coagulase neg, proteus, Enterobacter aerogenes, 07/19 : ecoli, proteus mirabelis Anaerobic cultures also positive finished cefepime x 8 days. Now on metronidazole for anaerobes. BCx neg s/p debridement with wound vac placement by Dr Zaragoza. he wound is not infected at this time but there is no granulation tissues at the base. Dr Echeverria will take her to OR for further debridement. Severe PAD with bilateral AKAs. DM: Levemir and lispro sliding scale FSBG ACHS, hypoglycemia protocol Chronic Atrial fibrillation: rate controlled metoprolol, xarelto Hypertension: metoprolol , started lisinopril lower dose. holding amlodipine HLD statin CAD asa, statin, metoprolol Gout allopurinol GERD PPI Depression sertraline Glaucoma home eye drops. Intertriginous candidiasis nystatin powder. CVA, old with residual right hemiparesis and aphasia in 2007 Carotid arterial disease status post left carotid endarterectomy. Dispo: will change to acute status as she is going to get a debridement of the wound again on 07/30/20 Plan/VTE VTE Prophylaxis Ordered?: Yes VS, I&O, 24H, Fishbone Vital Signs/I&O Vital Signs Date Time Temp Pulse Resp B/P (MAP) Pulse Ox O2 Delivery O2 Flow Rate FiO2 07/29/20 09:31 96 128/70 07/29/20 06:00 96.4 16 96 Room Air I&O- Last 24 Hours up to 6 AM 07/29/20 06:00 Intake Total 1160 ml Output Total 100 ml Balance 1060 ml Laboratory Data 24H LABS Laboratory Tests 2 07/28/20 11:37: Bedside Glucose (Misc Panel) 304H 07/28/20 16:34: Bedside Glucose (Misc Panel) 141H 07/28/20 20:01: Bedside Glucose (Misc Panel) 181H 07/29/20 08:20: Nucleated Red Blood Cells % (auto) 0.0, Anion Gap 6L, Glomerular Filtration Rate > 60.0, Calcium Level 8.7L CBC/BMP Laboratory Tests 07/29/20 08:20 Microbiology Microbiology 07/19/20 Wound Culture - Final, Complete Escherichia Coli Proteus Mirabilis 07/19/20 Anaerobic Culture - Final, Complete Bifidobacterium Species Bacteroides Ovatus VICENTE STEPHENS MD July 29, 2020 10:49
[2020-07-29 14:00] VITALS: BP 132/63
[2020-07-29] MEDS: ACETAMINOPHEN TAB 650MG DOSE (2X325MG) PO PRN (16:25)
[2020-07-29] MEDS: SERTRALINE HCL 25 MG TABLET PO SCH (21:23)
[2020-07-29] MEDS: ROSUVASTATIN 10 MG TAB (CRESTOR) PO SCH (21:23)
[2020-07-29] MEDS: LATANOPROST 0.005% OPHTH SOLN 2.5 ML OU SCH (21:23)
[2020-07-29] MEDS: rOPINIRole 0.25 MG TAB(REQUIP) PO SCH (21:23)
[2020-07-29] MEDS: SENNA 8.6 MG TAB (SENOKOT) PO SCH (21:23)
[2020-07-29 22:00] VITALS: BP 148/72
[2020-07-30] MEDS: metroNIDAZOLE (FLAGYL) 500MG TABLET PO SCH ×3 (05:00→21:19)
[2020-07-30 06:00] VITALS: BP 145/86
[2020-07-30] MEDS: HumaLOG INSULIN (NovoLOG) PER UNIT SC SCH ×4 (07:30→21:00)
[2020-07-30] MEDS: LEVEMIR (INSULIN DETEMIR) 1 UNITS/0.01ML SC SCH (08:20)
[2020-07-30] MEDS: OMEPRAZOLE 20 MG CAP PO SCH (08:30)
[2020-07-30] MEDS: allopurinoL 100 MG TAB PO SCH (08:30)
[2020-07-30] MEDS: VITAMIN D 1,000 INTERNATIONAL UNITS TABLET PO SCH (08:30)
[2020-07-30] MEDS: DOCUSATE SODIUM 100MG CAPSULE PO SCH (08:31)
[2020-07-30] MEDS: ASPIRIN 81 MG CHEW TABLET PO SCH (08:31)
[2020-07-30] MEDS: traMADol 50 MG TAB PO SCH ×2 (08:31→21:19)
[2020-07-30] MEDS: LACTOBACILLUS ACIDOPHILUS CAP (BACID) PO SCH ×3 (08:31→18:09)
[2020-07-30] MEDS: OMEGA-3 1000MG CAPSULE PO SCH ×2 (08:31→21:20)
[2020-07-30] MEDS: FERROUS SULFATE 325MG TAB PO SCH (08:31)
[2020-07-30] MEDS: MICONAZOLE 2 % POWDER (DESENEX) TOP SCH ×2 (08:34→21:18)
[2020-07-30] MEDS: METOPROLOL SUCC (TopROL XL) 100MG *XL* TAB PO SCH (08:34)
--- NOTE | 2020-07-30 09:03 | IPN ---
PROGRESS NOTE DATE: 07/30/2020 SUBJECTIVE: She denies any pain, fever, or chills. Going to the operating room today for further debridement with Dr. Bernardo of vascular surgery. No other issues per nursing overnight. OBJECTIVE: VITAL SIGNS: Temperature 97.6, pulse 78, respiratory rate 16, blood pressure 145/86, 98% on room air. GENERAL: Awake, alert, and oriented to person, place, and time. Answers questions appropriately. Poor dentition. Dry mucous membranes. No JVD, thyromegaly, or cervical lymphadenopathy. LUNGS: Clear to auscultation. No wheezing, rales, or rhonchi. HEART: S1, S2. No murmurs, rubs, or gallops. Irregularly irregular. ABDOMEN: Obese, soft, nontender, and nondistended. EXTREMITIES: Uobsw-kxe-dlew bilateral amputations. Left stump bandaged. LABORATORY DATA: Imaging and microbiology have been reviewed. Microbiology E. coli, proteus, bacteroides. CURRENT MEDICATIONS: Flagyl, lisinopril, metoprolol, fish oil, omeprazole, Colace, vitamin D, aspirin, ferrous sulfate, Prilosec, aspirin, allopurinol, Levemir insulin, Lactobacillus, tramadol, sertraline, Senokot, Requip, Crestor, Xalatan, Lotrimin, insulin sliding scale, Neurontin, Flexeril, Dulcolax, hypoglycemic protocol, Magox, Tylenol. ASSESSMENT AND PLAN: This is a 70-year-old admitted on 07/18/2020, with history of severe peripheral vascular disease status post bilateral qhelh-zgu-qiyq amputation (AKA), cerebrovascular accident (CVA) , chronic atrial fibrillation on Xarelto, chronic kidney disease (CKD) stage II, anxiety, depression, hypertension, hypercholesterolemia, insulin-dependent diabetes, reflux, obesity, and glaucoma admitted to infection mrded-amg-toww amputation stump on the left lower extremity. The patient's white count was 10. Current issues are as follows: 1. Left nrzmz-xfp-chlw amputation postoperative infection with purulent drainage. Had a left AKA by Dr. Bernardo of vascular surgery on 06/28 with postop wound infection. Cultures on 07/16 grew out E. faecalis Staphylococcus aureus coag negative proteus Enterobacter; 07/19 grew out Escherichia coli, proteus, anaerobic culture positive. Finished Cefepime for eight days now on Flagyl for anaerobic coverage. Blood cultures negative. Status post debridement with wound VAC by general surgeon, Dr. Zaragoza. The patient has no granulation tissue. Vascular surgery to take the patient for further debridement in the OR on 07/30/2020. will restart cefepime today due to purulent drainage . 2. Insulin-dependent diabetes. Holding off on Levemir insulin this morning due to n.p.o. status. Continued on hypoglycemic protocol lispro sliding scale. May resume constant carbohydrate diet after returns from the operating room. 3. Severe peripheral arterial disease status post bilateral AKA on chronic aspirin. 4. Chronic atrial fibrillation rate controlled on metoprolol and Xarelto, which have been held currently just on aspirin. 5. Hypertension on metoprolol. Holding Norvasc. Currently on lisinopril. 6. Hyperlipidemia on statin. 7. CAD on aspirin, statin, and metoprolol. 8. Gout on allopurinol. 9. Reflux on proton pump inhibitor (PPI). 10. Glaucoma on home eye drops. 11. Depression on sertraline. 12. Intertriginous candidiasis on Nystatin powder. 13. History of cerebrovascular accident (CVA) with chronic right hemiparesis and aphasia in 2006, resolved. MTDD
--- NOTE | 2020-07-30 09:50 | IPNPDOC ---
Date Seen The patient was seen on 07/30/20. Progress Note Patient seen and examined today and is doing well. She is ready for her procedure this afternoon, and we will debride the nonviable aspect of the nonhea ling wound on her left AKA stump. Consent is on the chart. Her anticoagulation has been held. She is npo. We appreciate the opportunity to participate in the care of this patient. VS, I&O, 24H, Fishbone Vital Signs/I&O Vital Signs Date Time Temp Pulse Resp B/P (MAP) Pulse Ox O2 Delivery O2 Flow Rate FiO2 07/30/20 08:34 72 140/80 07/30/20 08:31 20 07/30/20 06:00 97.6 98 Room Air I&O- Last 24 Hours up to 6 AM 07/30/20 06:00 Intake Total 440 ml Output Total 0 ml Balance 440 ml Laboratory Data 24H LABS Laboratory Tests 2 07/29/20 11:31: Bedside Glucose (Misc Panel) 224H 07/29/20 16:30: Bedside Glucose (Misc Panel) 185H 07/29/20 21:08: Bedside Glucose (Misc Panel) 185H 07/29/20 22:22: Coronavirus (COVID-19)(PCR) NEGATIVE 07/30/20 06:47: Bedside Glucose (Misc Panel) 193H VINEET OLIVO MD July 30, 2020 09:50
[2020-07-30] MEDS ORDERED: MIDAZOLAM INJ 2MG/2ML VIAL (J2250 PER 1MG) As Ordered ONE (10:50)
[2020-07-30] MEDS ORDERED: ONDANSETRON 4MG/2ML VIAL As Ordered ONE (10:50)
[2020-07-30] MEDS ORDERED: fentaNYL 100 MCG/2 ML INJECTION (J3010) As Ordered ONE ×2 (10:50→12:44)
[2020-07-30] MEDS ORDERED: LIDOCAINE 2% 100MG/5ML SDV (FOR ANES.) As Ordered ONE (10:50)
[2020-07-30] MEDS ORDERED: propofoL 200 MG/20 ML VIAL As Ordered ONE ×3 (10:50→13:27)
[2020-07-30] MEDS ORDERED: ePHEDrine SULFATE 25 MG/5 ML(5MG/ML) SYRINGE As Ordered ONE (11:01)
[2020-07-30] MEDS: CEFEPIME HCL 2 GM in D5W MINI-BAG PLUS 50 ML IV SCH ×2 (11:33→22:22)
[2020-07-30] MEDS ORDERED: BUPIVACAINE/EPIN 0.5% 30 ML VIAL As Ordered ONE (12:27)
[2020-07-30] MEDS ORDERED: KETAMINE HCL 200 MG/20 ML VIAL As Ordered ONE (12:49)
[2020-07-30] MEDS ORDERED: DAKIN'S 0.25% HALF-STRENGTH SOLN 480 ML TOP ONE (13:00)
[2020-07-30] MEDS ORDERED: PHENYLephrine 500MCG 5ML (100MCG/ML) SYRINGE As Ordered ONE ×2 (13:05→13:35)
[2020-07-30] MEDS ORDERED: ACETAMINOPHEN 1000MG 100ML IV BTL (OFIRMEV) (J0131 PER 10MG) As Ordered ONE (13:17)
[2020-07-30] MEDS ORDERED: PERCOCET 5MG/325MG TAB PO PRN ×2 (14:00)
[2020-07-30] MEDS ORDERED: oxyCODONE 5MG TAB PO PRN (14:11)
[2020-07-30] MEDS ORDERED: ONDANSETRON 4MG/2ML VIAL IV PRN (14:11)
[2020-07-30] MEDS ORDERED: fentaNYL 100 MCG/2 ML INJECTION (J3010) IV PRN (14:11)
[2020-07-30] MEDS ORDERED: LR 1,000 ML IV SCH (14:11)
--- NOTE | 2020-07-30 14:14 | ROOPDOC ---
[facility] Report Of Operation Report of Operation DATE OF PROCEDURE: 07/30/20 PREPROCEDURE DIAGNOSES: Left above-knee amputation stump, nonhealing with open wound and nonviable tissue POSTPROCEDURE DIAGNOSES: Same. PROCEDURE: Excisional debridement of left above-knee amputation stump: 60 cm skin, subcutaneous tissue, fascia. SURGEON: Vineet Bernardo MD ANESTHESIA: Monitored anesthesia care and local INDICATION FOR PROCEDURE: This is a very pleasant 70-year-old patient with diabetes, morbid obesity, and mobility issues due to stroke who had a left above-knee amputation. Initially, the patient was healing well, but when we saw her back to clinic over the next few weeks for frequent appointments, her wound deteriorated each time. She was then admitted for IV antibiotics and a polymicrobial wound infection from fecal contamination and underwent initial debridement with Dr. Zaragoza. She was managed postoperatively with a wound VAC change Wednesday by our wound care nurses. I recently took over the patient's care and examined her stump. There was quite a bit of nonviable skin, subcutaneous tissue, and fascia at the wound base. There was a little bit of granulation tissue around the edges, but primarily the tissue was nonviable. I discussed with the patient the risks benefits and alternatives to surgical debridement, possible wound VAC placement. She was agreeable to proceed. Informed consent was obtained. REPORT OF OPERATION: The patient was brought to the OR in stable condition. Monitored anesthesia care was a mobile practice lead without complication. She had just received her afternoon dose of cefepime, so additional antibiotics were not required. A timeout was performed. Local anesthesia was administered to the skin and subcutaneous tissue around the wound edges. Scissors were used to excise the skin edge. Scissors were also used to excise nonviable subcutaneous tissue and fascia all along the wound base. The stump was open along the entire incision, proximally 15 cm wide and 4 cm length. It extended down a depth of approximately 7 cm. Extensive debridement was performed until healthy tissue was encountered. Bovie cautery was used for hemostasis. We irrigated with copious amounts of saline and 1/4 Dakin solution. We then approximated the deep tissues to close space laterally and medially with [id number] Vicryl sutures. We then closed the more superficial fascia with interrupted kdvjby-[id number] Vicryl sutures. We then closed the lateral and medial skin edge with interrupted nylon mattress sutures. The central portion of the wound, measuring 3.9 cm length, 6.5 cm with by 7.4 cm depth was left open. This was again irrigated and the stump was thoroughly cleaned with saline. We then loosely packed the open area 4 x 4 damp with Dakin's. We covered the sutures and the damp to dry dressing with dry gauze and Kerlix and 4 inch Heriberto wrap's. The patient was then allowed to awaken from anesthesia and taken to recovery in stable condition. She tolerated the procedure and the anesthesia well. SPECIMENS: Aerobic and anaerobic cultures were sent for microbiology, and some of the nonviable tissue was sent for pathology. ESTIMATED BLOOD LOSS: Approximately 5 mL. COMPLICATIONS: None. PLAN: We will continue IV antibiotics and follow the cultures to determine if any changes to the antibiotics are needed on a go forward basis. We will continue with dressing changes twice a day at first, then once a day when the wound is more superficial and no significant drainage is noted. She will need to stay in the hospital until we determine if the areas we closed are going to heal satisfactorily or if they will deteriorate due to ongoing infection. Although there is a risk to closing some of the tissue, the wound is so large my fear is that this would take months and months to heal if we did not close some of the wound. However, if we feel that healing is compromised by deep infection, we certainly can remove the sutures easily. We appreciate the opportunity to participate in the care of this patient. VINEET BERNARDO MD July 30, 2020 14:14
[2020-07-30 15:00] VITALS: BP 136/69
[2020-07-30 15:30] VITALS: BP 122/76
[2020-07-30 16:00] VITALS: BP 122/78
[2020-07-30] MEDS: LATANOPROST 0.005% OPHTH SOLN 2.5 ML OU SCH (21:17)
[2020-07-30] MEDS: SENNA 8.6 MG TAB (SENOKOT) PO SCH (21:19)
[2020-07-30] MEDS: ROSUVASTATIN 10 MG TAB (CRESTOR) PO SCH (21:20)
[2020-07-30] MEDS: rOPINIRole 0.25 MG TAB(REQUIP) PO SCH (21:21)
[2020-07-30] MEDS: SERTRALINE HCL 25 MG TABLET PO SCH (21:21)
[2020-07-30 22:00] VITALS: BP 132/68
[2020-07-31 06:00] VITALS: BP 128/70
[2020-07-31] MEDS: metroNIDAZOLE (FLAGYL) 500MG TABLET PO SCH ×3 (06:08→21:35)
[2020-07-31 07:04] LABS: BASO # 0.1 10^3/uL (0.0-0.2); BASO % 0.4 % (0.0-1.0); EOS # 0.3 10^3/uL (0.0-0.5); EOS % 2.3 % (0.0-3.0); HEMATOCRIT 35.8 % (36.0-47.0); HEMOGLOBIN 10.8 g/dl (12.0-15.5); LYMPH # 1.7 10^3/uL (1.5-5.0); LYMPH % 12.3 % (24.0-44.0); MEAN CORPUSCULAR HGB CONC 30.2 g/dl (32.0-36.5); MEAN CORPUSCULAR VOLUME 86.1 fl (80.0-96.0); MONO % 7.3 % (2.0-8.0); NEUTROPHILS # 10.6 10^3/uL (1.5-8.5); PLATELET COUNT, AUTOMATED 313 10^3/uL (150-450); RED BLOOD COUNT 4.16 10^6/uL (4.00-5.40); WHITE BLOOD COUNT 13.8 10^3/uL (4.0-10.0)
[2020-07-31 07:21] LABS: BLOOD UREA NITROGEN 14 MG/DL (7-18); C REACTIVE PROTEIN QUANTITATIV 5.23 MG/DL (0.00-0.30); CALCIUM LEVEL 8.9 MG/DL (8.8-10.2); CARBON DIOXIDE LEVEL 25 MEQ/L (21-32); CHLORIDE LEVEL 107 MEQ/L (98-107); CREATININE FOR GFR 0.66 MG/DL (0.55-1.30); GLOMERULAR FILTRATION RATE > 60.0 (>45); GLUCOSE, FASTING 201 MG/DL (70-100); POTASSIUM SERUM 5.3 MEQ/L (3.5-5.1); SODIUM LEVEL 138 MEQ/L (136-145)
[2020-07-31] MEDS ORDERED: zolPIDEM TARTRATE 5 MG TAB PO PRN (07:35)
[2020-07-31] MEDS ORDERED: PERCOCET 5MG/325MG TAB PO ONE (07:35)
[2020-07-31 07:45] LABS: ERYTHROCYTE SEDIMENTATION RATE 63 mm/hr (0-30)
[2020-07-31] MEDS ORDERED: CALCIUM GLUCONATE 1,000 MG in D5W MINI-BAG PLUS 100 ML IV ONE (08:00)
--- NOTE | 2020-07-31 08:30 | IPN ---
PROGRESS NOTE DATE: 07/31/2020 SUBJECTIVE: The patient says she has not been able to sleep due to severe pain at the left lower extremity. She had debridement, incision and drainage by Dr. Bernardo on 07/30/2020, resumed back on cefepime. No fevers or chills overnight. No nausea or vomiting. No abdominal pain. OBJECTIVE: VITAL SIGNS: Temperature 96.9, pulse 82, respiratory rate 16, blood pressure 128/70, 99% on room air. GENERAL: Generally awake, alert and oriented times three. No distress, pallor, icterus. HEENT: No JVD or thyromegaly. No carotid bruits. LUNGS: Lungs are clear to auscultation, no wheezing, rales or rhonchi. HEART: S1, S2 sinus rhythm. No murmurs, rubs or gallops. ABDOMEN: Obese, soft, nontender, nondistended. Positive bowel sounds times four quadrants. EXTREMITIES: Above the knee bilateral amputations. Left stump is bandaged. Laboratory data, imaging, microbiology have been reviewed. ASSESSMENT AND PLAN: A 70-year-old female admitted on 07/18 with history of severe peripheral vascular disease status post bilateral BKAs, CVAs, chronic atrial fibrillation on Xarelto, CKD stage II, anxiety, depression, hypertension, hypercholesterolemia, insulin dependent diabetes, reflux, obesity, glaucoma, who was admitted due to infection on her left lower above the knee amputation stump, was treated with cefepime for eight days and kept on Flagyl. The patient's white count increased with increased purulence at the left lower extremity stump and she was resumed back on cefepime on 07/30/2020, continued on Flagyl. IMPRESSION: 1. Left above the knee amputation postop infection with purulent drainage. The patient underwent debridement, incision and drainage by Dr. Bernardo again on 07/30/2020, and 07/28/2020 cultures grew out E. faecalis, Staph aureus, coag negative, Proteus enterobacter. The 07/19 culture grew out E. coli, proteus and anaerobic culture was positive. The patient was status post eight days of cefepime, Flagyl for anaerobic coverage but resumed back on cefepime due to increased white count, increased purulence on 07/30/2020. 2. Insulin dependent diabetes. Resumed back on her home dose of Levemir, consistent carbohydrate diet. Hyperglycemic protocol. Sliding scale Insulin with coverage. 3. Severe peripheral arterial disease status post BKA on chronic Aspirin. 4. Chronic atrial fibrillation, currently rate controlled on met and Xarelto. May be resumed back on her home dose of Aspirin. 5. Hypertension on chronic metoprolol and Lisinopril. 6. Hyperlipidemia on statin. 7. Coronary artery disease on Aspirin, statin, metoprolol and Lisinopril. 8. Gout, on chronic Allopurinol. 9. Reflux, on PPI. 10. Glaucoma, on eye drops. 11. Depression, on Sertraline. 12. Intertrigo candidiasis. Has Nystatin Powder. 13. History of cerebrovascular accident in 2006 complicating care. DISPOSITION: Await clinical improvement two to three more days. MTDD
[2020-07-31] MEDS ORDERED: SOD POLYSTYRENE SULFONATE SUSP 15 GM/60 ML UD PO ONE (09:00)
--- NOTE | 2020-07-31 09:22 | IPNPDOC ---
Date Seen The patient was seen on 07/31/20. Progress Note Patient seen and examined postop day 1 status post left AKA stump debridement, washout, and partial closure. The patient is doing well. She complained about the Heriberto wrap we explained to her how important this was postop. On exam the stump is clean dry and intact. All the sutures are intact in the wound edges appear viable. There is no signs of erythema or induration or deterioration. We are still nervous about closing part of the incision due to such a significant polymicrobial infection, but the wound is so large and the patient is such a poor healer, with just wound VAC alone I felt this would likely take months to heal. Today, I'll tissue appears viable. The central portion that we left open to dress with Dakin's damp to dry dressings was redressed with the Dakin's damp to dry. We cleaned the sutures thoroughly and dry gauze was placed over the incision along with Kerlix and slightly looser Heriberto wrap to make the patient more comfortable. She tolerated this with quite a bit of complaining, but once it was over seemed to be in good spirits and doing fine. I think her skin and tissue is extremely sensitive, as we've noticed this throughout the course of her treatment over the past year. Depending on how she feels over the course of the week, she may be ready for discharge Wednesday, but I like to keep her as long as possible since we cannot count on her wound care outpatient. We will continue IV antibiotics for now. The patient's infection was severe and extensive. We took new cultures in the OR yesterday, and we will adjust antibiotics based on findings. We will continue with tight glucose control and high protein diet to help with healing. We appreciate the opportunity to participate in the care of this patient. VS, I&O, 24H, Fishbone Vital Signs/I&O Vital Signs Date Time Temp Pulse Resp B/P (MAP) Pulse Ox O2 Delivery O2 Flow Rate FiO2 07/31/20 08:33 20 07/31/20 06:00 96.9 82 128/70 (89) 99 Room Air I&O- Last 24 Hours up to 6 AM 07/31/20 06:00 Intake Total 1400 ml Output Total 5 ml Balance 1395 ml Laboratory Data 24H LABS Laboratory Tests 2 07/30/20 11:18: Bedside Glucose (Misc Panel) 173H 07/30/20 16:46: Bedside Glucose (Misc Panel) 151H 07/30/20 20:14: Bedside Glucose (Misc Panel) 207H 07/31/20 05:55: Bedside Glucose (Misc Panel) 206H 07/31/20 06:45: Immature Granulocyte % (Auto) 0.7, Neutrophils (%) (Auto) 77.0H, Lymphocytes (%) (Auto) 12.3L, Monocytes (%) (Auto) 7.3, Eosinophils (%) (Auto) 2.3, Basophils (%) (Auto) 0.4, Neutrophils # (Auto) 10.6H, Lymphocytes # (Auto) 1.7, Monocytes # (Auto) 1.0H, Eosinophils # (Auto) 0.3, Basophils # (Auto) 0.1, Nucleated Red Blood Cells % (auto) 0.0, Erythrocyte Sedimentation Rate 63H, Anion Gap 6L, Glomerular Filtration Rate > 60.0, Calcium Level 8.9, C-Reactive Protein, Quantitative 5.23H CBC/BMP Laboratory Tests 07/31/20 06:45 07/31/20 08:15 Microbiology Microbiology 07/30/20 Gram Stain - Final, Resulted 07/30/20 Wound Culture, Resulted Pending 07/30/20 Anaerobic Culture, Resulted Pending VINEET OLIVO MD July 31, 2020 09:22
[2020-07-31] MEDS: CEFEPIME HCL 2 GM in D5W MINI-BAG PLUS 50 ML IV SCH ×2 (09:54→23:30)
[2020-07-31] MEDS: FERROUS SULFATE 325MG TAB PO SCH (09:55)
[2020-07-31] MEDS: ASPIRIN 81 MG CHEW TABLET PO SCH (09:55)
[2020-07-31] MEDS: OMEPRAZOLE 20 MG CAP PO SCH (09:55)
[2020-07-31] MEDS: DOCUSATE SODIUM 100MG CAPSULE PO SCH (09:55)
[2020-07-31] MEDS: LACTOBACILLUS ACIDOPHILUS CAP (BACID) PO SCH ×3 (09:55→18:09)
[2020-07-31] MEDS: allopurinoL 100 MG TAB PO SCH (09:56)
[2020-07-31] MEDS: METOPROLOL SUCC (TopROL XL) 100MG *XL* TAB PO SCH (09:56)
[2020-07-31] MEDS: OMEGA-3 1000MG CAPSULE PO SCH ×2 (09:56→21:37)
[2020-07-31] MEDS: RIVAROXABAN 20 MG TAB (XARELTO) PO SCH (09:56)
[2020-07-31] MEDS: VITAMIN D 1,000 INTERNATIONAL UNITS TABLET PO SCH (09:56)
[2020-07-31] MEDS: traMADol 50 MG TAB PO SCH ×2 (09:57→21:36)
[2020-07-31] MEDS: LEVEMIR (INSULIN DETEMIR) 1 UNITS/0.01ML SC SCH (09:59)
[2020-07-31] MEDS: HumaLOG INSULIN (NovoLOG) PER UNIT SC SCH ×4 (10:00→21:00)
[2020-07-31] MEDS: MICONAZOLE 2 % POWDER (DESENEX) TOP SCH ×2 (10:01→21:37)
[2020-07-31 14:00] VITALS: BP 138/66
[2020-07-31] MEDS: SERTRALINE HCL 25 MG TABLET PO SCH (21:35)
[2020-07-31] MEDS: SENNA 8.6 MG TAB (SENOKOT) PO SCH (21:36)
[2020-07-31] MEDS: ROSUVASTATIN 10 MG TAB (CRESTOR) PO SCH (21:37)
[2020-07-31] MEDS: rOPINIRole 0.25 MG TAB(REQUIP) PO SCH (21:37)
[2020-07-31] MEDS: LATANOPROST 0.005% OPHTH SOLN 2.5 ML OU SCH (21:37)
[2020-07-31 22:00] VITALS: BP 132/58
[2020-08-01] MEDS: metroNIDAZOLE (FLAGYL) 500MG TABLET PO SCH ×3 (05:49→21:58)
[2020-08-01 06:00] VITALS: BP 124/80
[2020-08-01 07:17] LABS: HEMATOCRIT 36.4 % (36.0-47.0); HEMOGLOBIN 10.9 g/dl (12.0-15.5); MEAN CORPUSCULAR HEMOGLOBIN 26.1 pg (27.0-33.0); MEAN CORPUSCULAR HGB CONC 29.9 g/dl (32.0-36.5); MEAN CORPUSCULAR VOLUME 87.1 fl (80.0-96.0); PLATELET COUNT, AUTOMATED 336 10^3/uL (150-450); RED BLOOD COUNT 4.18 10^6/uL (4.00-5.40); WHITE BLOOD COUNT 11.7 10^3/uL (4.0-10.0)
[2020-08-01 07:26] LABS: BLOOD UREA NITROGEN 13 MG/DL (7-18); CALCIUM LEVEL 8.6 MG/DL (8.8-10.2); CARBON DIOXIDE LEVEL 23 MEQ/L (21-32); CHLORIDE LEVEL 108 MEQ/L (98-107); CREATININE FOR GFR 0.59 MG/DL (0.55-1.30); GLOMERULAR FILTRATION RATE > 60.0 (>45); GLUCOSE, FASTING 181 MG/DL (70-100); SODIUM LEVEL 139 MEQ/L (136-145)
[2020-08-01 08:05] LABS: ERYTHROCYTE SEDIMENTATION RATE 80 mm/hr (0-30)
--- NOTE | 2020-08-01 08:46 | IPNPDOC ---
Date Seen The patient was seen on 08/01/20. Progress Note Patient seen and examined postop day 2 status post left AKA stump excisional debridement, extensive washout, and partial medial and lateral closure. The patient is doing well. On exam the stump is clean dry and intact. All the sutures are intact in the wound edges appear viable. There is no signs of erythema or induration or deterioration today. We are still nervous about closing part of the incision due to such a significant polymicrobial infection, but the wound is so large and the patient is such a poor healer, so with just wound VAC alone I felt this would likely take months to heal, but it still may. Today, all tissue appears viable. The central portion that we left open to dress with Dakin's damp to dry dressings was redressed with the Dakin's damp to dry. There was some drainage as expected, but not that much and the odor has dramatically improved. We cleaned the sutures thoroughly and dry gauze was placed over the incision along with Kerlix and slightly looser Heriberto wrap to make the patient more comfortable. We talked about the fact that she is so aggressive at trying to stop us from doing dressing changes, and screams quite loudly, and that this may be part of the reason she is getting very inconsistent wound care as an outpatient. I am pretty comfortable with a "tough love" approach with her, continuing the dressing despite her protests and scratching me and screaming, but I am afraid that others would not be so persistent. I discussed with her that it is important that she try to control her anxiety during dressing changes and allow them to be done in order to maximize the chances that they will be done. Unfortunately, I cannot keep her in the hospital another month which I would like to do, and she is eventually going to have to be outpatient and she is going to have to allow dressing changes. She tolerated today's dressing change with much less complaining, and again once it was over seemed to be in good spirits and doing fine. I think her skin and tissue is extremely sensitive, as we've noticed this throughout the course of her treatment over the past year. Depending on how she feels over the course of the week, and we will await the OR culture results. I like to keep her here at the hospital as long as possible since we cannot count on her wound care outpatient. We will continue IV antibiotics for now. The patient's infection was severe and extensive. We will plan to adjust antibiotics based on our cultures if needed. We will continue with tight glucose control and high protein diet to help with healing. We appreciate the opportunity to participate in the care of this patient. VS, I&O, 24H, Fishbone Vital Signs/I&O Vital Signs Date Time Temp Pulse Resp B/P (MAP) Pulse Ox O2 Delivery O2 Flow Rate FiO2 08/01/20 06:00 98.0 83 18 124/80 (95) 97 Room Air I&O- Last 24 Hours up to 6 AM 08/01/20 05:59 Intake Total 1110 ml Output Total 0 ml Balance 1110 ml Laboratory Data 24H LABS Laboratory Tests 2 07/31/20 11:42: Bedside Glucose (Misc Panel) 309H 07/31/20 16:35: Bedside Glucose (Misc Panel) 161H 07/31/20 20:09: Bedside Glucose (Misc Panel) 211H 08/01/20 06:18: Nucleated Red Blood Cells % (auto) 0.0, Erythrocyte Sedimentation Rate 80H, Anion Gap 8, Glomerular Filtration Rate > 60.0, Calcium Level 8.6L, C-Reactive Protein, Quantitative 7.69H CBC/BMP Laboratory Tests 08/01/20 06:18 Microbiology Microbiology 07/30/20 Gram Stain - Final, Resulted 07/30/20 Wound Culture, Resulted Pending 07/30/20 Anaerobic Culture, Resulted Pending VINEET OLIVO MD August 01, 2020 08:46
--- NOTE | 2020-08-01 09:01 | IPNPDOC ---
Date Seen The patient was seen on 08/01/20. Progress Note SUBJECTIVE: c/o 8/10 pain after dressing change this am. no n/v/f/c. OBJECTIVE: VITAL SIGNS: see below GENERAL: Generally awake, alert and oriented times three. No distress, pallor, icterus.speaks inf ull sentences HEENT: No JVD or thyromegaly. No carotid bruits. LUNGS: Lungs are clear to auscultation, no wheezing, rales or rhonchi. AEBE HEART: S1, S2 sinus rhythm. No murmurs, rubs or gallops. no carotid bruit ABDOMEN: Obese, soft, nontender, nondistended. Positive bowel sounds times four quadrants. EXTREMITIES: Above the knee bilateral amputations. Left stump is bandaged. Laboratory data, imaging, microbiology have been reviewed. ASSESSMENT AND PLAN: A 70-year-old female admitted on 07/18 with history of severe peripheral vascular disease status post bilateral BKAs, CVAs, chronic atrial fibrillation on Xarelto, CKD stage II, anxiety, depression, hypertension, hypercholesterolemia, insulin dependent diabetes, reflux, obesity, glaucoma, who was admitted due to infection on her left lower above the knee amputation stump, was treated with cefepime for eight days and kept on Flagyl. The patient's white count increased with increased purulence at the left lower extremity stump and she was resumed back on cefepime on 07/30/2020, continued on Flagyl. IMPRESSION: 1. Left above the knee amputation postop infection with purulent drainage. -debridement, incision and drainage by Dr. Bernardo again on 07/30/2020, and 07/28/2020 cultures grew out E. faecalis, Staph aureus, coag negative, Proteus enterobacter. The 07/19 culture grew out E. coli, proteus and anaerobic culture was positive. -completed eight days of cefepime, Flagyl for anaerobic coverage -resumed on cefepime due to increased wbc, purulent drainate on 07/30/20, awaiting repeat wound cx. dc abx if no bacteria on repeat 07/30/20 cx since procalcitonin is negative. dressing changes per vascular surgery. uncontrolled pain, given prn pain meds. 2. Insulin dependent diabetes.on her home dose of Levemir, consistent carbohydrate diet. Hyperglycemic protocol. Sliding scale Insulin with coverage. 3. Severe peripheral arterial disease status post BKA on chronic Aspirin. 4. Chronic atrial fibrillation, currently rate controlled on met and Xarelto. May be resumed back on her home dose of Aspirin. 5. Hypertension on chronic metoprolol and Lisinopril. 6. Hyperlipidemia on statin. 7. Coronary artery disease on Aspirin, statin, metoprolol and Lisinopril. 8. Gout, on chronic Allopurinol. 9. Reflux, on PPI. 10. Glaucoma, on eye drops. 11. Depression, on Sertraline. 12. Intertrigo candidiasis. Has Nystatin Powder. 13. History of cerebrovascular accident in 2006 complicating care. DISPOSITION: awaiting 07/30/20 culture results to decide on po abx if needed. VS, I&O, 24H, Fishbone Vital Signs/I&O Vital Signs Date Time Temp Pulse Resp B/P (MAP) Pulse Ox O2 Delivery O2 Flow Rate FiO2 08/01/20 06:00 98.0 83 18 124/80 (95) 97 Room Air I&O- Last 24 Hours up to 6 AM 08/01/20 06:00 Intake Total 1110 ml Balance 1110 ml Laboratory Data 24H LABS Laboratory Tests 2 07/31/20 11:42: Bedside Glucose (Misc Panel) 309H 07/31/20 16:35: Bedside Glucose (Misc Panel) 161H 07/31/20 20:09: Bedside Glucose (Misc Panel) 211H 08/01/20 06:18: Nucleated Red Blood Cells % (auto) 0.0, Erythrocyte Sedimentation Rate 80H, Anion Gap 8, Glomerular Filtration Rate > 60.0, Calcium Level 8.6L, C-Reactive Protein, Quantitative 7.69H CBC/BMP Laboratory Tests 08/01/20 06:18 Microbiology Microbiology 07/30/20 Gram Stain - Final, Resulted 07/30/20 Wound Culture, Resulted Pending 07/30/20 Anaerobic Culture, Resulted Pending ROMERO SANDOVAL MD August 01, 2020 09:01
[2020-08-01] MEDS: OMEPRAZOLE 20 MG CAP PO SCH (09:30)
[2020-08-01] MEDS: RIVAROXABAN 20 MG TAB (XARELTO) PO SCH (09:30)
[2020-08-01] MEDS: OMEGA-3 1000MG CAPSULE PO SCH ×2 (09:30→21:58)
[2020-08-01] MEDS: FERROUS SULFATE 325MG TAB PO SCH (09:30)
[2020-08-01] MEDS: LACTOBACILLUS ACIDOPHILUS CAP (BACID) PO SCH ×3 (09:31→18:17)
[2020-08-01] MEDS: ASPIRIN 81 MG CHEW TABLET PO SCH (09:31)
[2020-08-01] MEDS: VITAMIN D 1,000 INTERNATIONAL UNITS TABLET PO SCH (09:31)
[2020-08-01] MEDS: DOCUSATE SODIUM 100MG CAPSULE PO SCH (09:31)
[2020-08-01] MEDS: allopurinoL 100 MG TAB PO SCH (09:31)
[2020-08-01] MEDS: traMADol 50 MG TAB PO SCH ×2 (09:32→21:59)
[2020-08-01] MEDS: METOPROLOL SUCC (TopROL XL) 100MG *XL* TAB PO SCH (09:36)
[2020-08-01] MEDS: LEVEMIR (INSULIN DETEMIR) 1 UNITS/0.01ML SC SCH (09:39)
[2020-08-01] MEDS: HumaLOG INSULIN (NovoLOG) PER UNIT SC SCH ×4 (09:40→22:02)
[2020-08-01] MEDS: MICONAZOLE 2 % POWDER (DESENEX) TOP SCH ×2 (09:41→22:02)
[2020-08-01] MEDS: CEFEPIME HCL 2 GM in D5W MINI-BAG PLUS 50 ML IV SCH ×2 (10:01→22:18)
[2020-08-01 14:00] VITALS: BP 120/78
[2020-08-01] MEDS: ROSUVASTATIN 10 MG TAB (CRESTOR) PO SCH (21:58)
[2020-08-01] MEDS: SERTRALINE HCL 25 MG TABLET PO SCH (21:58)
[2020-08-01] MEDS: rOPINIRole 0.25 MG TAB(REQUIP) PO SCH (21:58)
[2020-08-01] MEDS: SENNA 8.6 MG TAB (SENOKOT) PO SCH (21:59)
[2020-08-01 22:00] VITALS: BP 128/60
[2020-08-01] MEDS: LATANOPROST 0.005% OPHTH SOLN 2.5 ML OU SCH (22:02)
[2020-08-02] MEDS: metroNIDAZOLE (FLAGYL) 500MG TABLET PO SCH ×3 (05:34→21:03)
[2020-08-02 06:00] VITALS: BP 140/80
[2020-08-02] MEDS ORDERED: AMPICILLIN SOD/SULBACTAM SOD 1.5 GM in D5W MINI-BAG PLUS 50 ML IV SCH (08:35)
[2020-08-02] MEDS ORDERED: DOXYCYCLINE HYCLATE 100 MG in D5W MINI-BAG PLUS 100 ML IV SCH (08:35)
[2020-08-02] MEDS ORDERED: DOXYCYCLINE HYCLATE 100MG TABLET PO SCH (09:00)
[2020-08-02] MEDS ORDERED: PERCOCET 5MG/325MG TAB PO ONE (09:00)
[2020-08-02] MEDS ORDERED: KETOROLAC 30 MG/ML 1ML VIAL IV ONE (09:00)
[2020-08-02] MEDS: LEVEMIR (INSULIN DETEMIR) 1 UNITS/0.01ML SC SCH (09:29)
[2020-08-02] MEDS: OMEGA-3 1000MG CAPSULE PO SCH ×2 (09:30→21:04)
[2020-08-02] MEDS: HumaLOG INSULIN (NovoLOG) PER UNIT SC SCH ×4 (09:30→20:17)
[2020-08-02] MEDS: METOPROLOL SUCC (TopROL XL) 100MG *XL* TAB PO SCH (09:31)
[2020-08-02] MEDS: LACTOBACILLUS ACIDOPHILUS CAP (BACID) PO SCH ×3 (09:31→18:05)
[2020-08-02] MEDS: ASPIRIN 81 MG CHEW TABLET PO SCH (09:31)
[2020-08-02] MEDS: FERROUS SULFATE 325MG TAB PO SCH (09:31)
[2020-08-02] MEDS: DOCUSATE SODIUM 100MG CAPSULE PO SCH (09:31)
[2020-08-02] MEDS: VITAMIN D 1,000 INTERNATIONAL UNITS TABLET PO SCH (09:32)
[2020-08-02] MEDS: OMEPRAZOLE 20 MG CAP PO SCH (09:32)
[2020-08-02] MEDS: allopurinoL 100 MG TAB PO SCH (09:32)
[2020-08-02] MEDS: RIVAROXABAN 20 MG TAB (XARELTO) PO SCH (09:32)
[2020-08-02] MEDS: MICONAZOLE 2 % POWDER (DESENEX) TOP SCH ×2 (09:33→21:04)
[2020-08-02] MEDS: traMADol 50 MG TAB PO SCH ×2 (09:33→21:04)
[2020-08-02] MEDS: BACTRIM 160MG/800MG DS TAB PO SCH ×2 (10:04→21:04)
--- NOTE | 2020-08-02 10:19 | IPN ---
PROGRESS NOTE DATE: 08/02/2020 SUBJECTIVE: The patient complains of 10/10 pain when her left swjaq-wfb-hgzf amputation stump was palpated this morning, very sharp, and lasted for a few months. No fever or chills. The patient had been on IV Cefepime. Culture result showed E. coli, coag-negative Staph, and proteus on repeat culture. Her Flagyl has been discontinued currently on doxycycline and Bactrim. OBJECTIVE: VITAL SIGNS: Temperature 97.5, pulse 80, respiratory rate 18, blood pressure 140/80, 95% on room air. GENERAL: Awake, alert, and oriented to person, place, and time. Answering questions appropriately. LUNGS: Clear to auscultation. No wheezing, rales, or rhonchi. HEART: S1, S2. Sinus rhythm. ABDOMEN: Obese, soft, nontender, and nondistended. EXTREMITIES: Left lower extremity AKA stump extremely tender this morning. Bandaged. LABORATORY DATA: CBC and metabolic panel have been reviewed, notable for decreasing white count at 11.7 from previous white count of 13.8. ASSESSMENT: This is a 70-year-old female admitted on 07/18/2020, with history of severe peripheral vascular disease status post bilateral tflfa-kor-wudr amputation, cerebrovascular accident (CVA), chronic atrial fibrillation on Xarelto, chronic kidney disease (CKD) stage II, anxiety, depression, hypertension, hyperlipidemia, insulin-dependent diabetes, reflux, obesity, and glaucoma who was being treated for infection of left lower extremity hloet-gzv-otoy stump infection with Cefepime completed eight days and was kept on Flagyl for anaerobic coverage. However, the patient had increasing white count with increased purulence and was sent back to the OR for further debridement, incision and drainage with repeat cultures now showing proteus along with prior coag-negative Staph and E. coli. The patient had been resumed back on Cefepime on 07/30/2020, but now changed once sensitivities had been available to Bactrim and doxycycline. White count has been decreasing. She has remained afebrile, but the left mfifl-nwh-nrqu amputation stump is still very tender. IMPRESSION: 1. Left ucdnz-aot-bzmr postoperative infection with purulent drainage. 2. Insulin-dependent diabetes. 3. Severe peripheral arterial disease status post bilateral skfab-qvo-sxgp amputation. 4. Chronic atrial fibrillation. 5. Hypertension. 6. Hyperlipidemia. 7. Coronary artery disease (CAD). 8. Gout. 9. Reflux. 10. Glaucoma. 11. Depression. 12. Intertrigo candidiasis. 13. History of cerebrovascular accident (CVA) in 2006. PLAN: The patient had undergone incision, drainage, and debridement again by Dr. Bernardo on 07/30 and previously on 07/28. Culture results have been reviewed. We will discontinue Cefepime today and change her to doxycycline and Bactrim. Her white count is decreasing and no recurrent purulence despite still being tender with no fever or chills. Will continue to monitor CRP, sed rate, and CBC with differential. The patient is continued on her home Levemir, consistent carbohydrate diet, sliding scale, and hypoglycemic protocol. She is continued on aspirin and Xarelto for peripheral disease, as well as atrial fibrillation, as well as lisinopril and metoprolol. The patient is continued on conservative management and deferred to Dr. Bernardo when the patient can be released from the hospital. The patient has uncontrolled anxiety during dressing changes and has been encouraged to take pain medication prior to this. Vascular surgery would like to keep her at the hospital as long as possible since they cannot count on her wound care and the patient's infection was severe and extensive. ID consulted to assess need for prolonged abx either iv via picc vs po. MTDD
--- NOTE | 2020-08-02 10:40 | IPNPDOC ---
Date Seen The patient was seen on 08/02/20. Progress Note Patient seen and examined postop day 3 status post left AKA stump excisional debridement, extensive washout, and partial medial and lateral closure. The patient is doing well. On exam the stump is clean dry and intact. All the sutures are intact in the wound edges at the medial and lateral aspects of the skin closure appear viable. There are no signs of erythema or induration or other deterioration today. We are still nervous about closing the medial and lateral parts of the incision due to such a significant polymicrobial infection, but the wound is so large and the patient is such a poor healer, so with just wound VAC alone I felt this would likely take months to heal, which increases her risk for additional reinfection and wound failure as an outpatient. Today, all tissue appears viable. The central portion that we left open to dress with Dakin's damp to dry dressings is clean with healthy tissue. No purulence, odor, or worsening infection is noted. There gauze we removed from the open area is clean. This was redressed with the Dakin's damp to dry dressing. We cleaned the sutures thoroughly and dry gauze was placed over the incision along with Kerlix and slightly looser Heriberto wrap to make the patient more comfortable. We talked yesterday about the fact that she is so aggressive at trying to stop us from doing dressing changes, and screams quite loudly, and that this may be part of the reason she is getting very inconsistent wound care as an outpatient. I am pretty comfortable with a "tough love" approach with her, continuing the dr lazcano despite her protests and scratching me and screaming, but I am afraid that others would not be so persistent. I discussed with her that it is important that she try to control her anxiety during dressing changes and allow them to be done in order to maximize the chances that they will be done. After that discussion, she has been much better with her dressing changes, and alt juve she occasionally will protest, it is significantly improved compared to before. I think her skin and tissue is extremely sensitive, as we've noticed this throughout the course of her treatment over the past year. Unfortunately, I cannot keep her in the hospital another month to get this healed (which I would like to do), and she is eventually going to have to be discharged and she is going to have to allow dressing changes to give her every advantaged to actually receive dressing changes. I like to keep her here at the hospital as long as possible since we cannot count on her wound care outpatient. The patient's infection was severe and extensive. Initially, her cultures grew E coli and Proteus with multiple anaerobes, and her new OR cultures from this week continue to grow Escherichia coli and Proteus, no anaerobes, but also coag- negative staph. I discussed her case with the hospitalist team today. Because she is so high risk for ongoing failure of wound healing due to her obesity, diabetes, and history of very poor wound healing, and because we cannot guarantee the consistency of wound care outpatient, I think a more extended course of antibiotics would be helpful. I've asked for an infectious disease consult and our hospitalist team is agreeable. I think the Dakin's damp to dry dressing will also be helpful, and we've seen a significant improvement in the wound after extensive excisional debridement and washout, and starting the Dakin's dressings. Once the central open portion has granulated and, we can switch to a Hydrofera Blue and dry gauze. Care needs to be taken with the patient stump to avoid skin tears and blisters from excessive tape were too tight dressings/Heriberto wraps. She has very fragile tissue, and injuring the non-surgical/non-wound tissue is also a concern with dressing changes. I went over her dressing changes with the nurse today. We will continue with tight glu cose control and high protein diet to help with healing. We appreciate the opportunity to participate in the care of this patient. [facility] wound care DAILY dressing change orders at discharge: Patient will need follow-up with vascular surgery 1 week after discharge to check wound and incision. Dressing should be done daily, or twice a day if increased drainage is noted. Clean the stump with soap and water or a wound wash, and swipe over the sutures with an alcohol prep pad. Remove the packing from the central wound. Take a 4 x 4 and open it. Take 1 corner of the 4 x 4 and get it damp with 1/4 strength Dakin's, or whatever strength is available. Do not place the entire 4 x 4 in the open wound. It only needs loose packing. Do not use a 2 x 2 to pack the wound, as it may get lost in the deep tissue and cause further infection. Only corner of the 4 x 4 that is damp with Dakin's needs to be packed into the wound, and the rest of the dry portion of the 4 x 4 can be left outside to help absorb drainage. We want to avoid wet gauze on the skin outside of the wound if possible. Cover with additional 4 x 4's, wrap with Kerlix (not too tight) and secured the kerlix to the thigh with paper tape to keep it from falling off. Okay to cover with an Heriberto wrap or or leave just the kerlix. Elevate the stump when at rest on a pillow. VS, I&O, 24H, Fishbone Vital Signs/I&O Vital Signs Date Time Temp Pulse Resp B/P (MAP) Pulse Ox O2 Delivery O2 Flow Rate FiO2 08/02/20 09:33 20 08/02/20 09:31 84 128/70 08/02/20 06:00 97.5 95 Room Air I&O- Last 24 Hours up to 6 AM 08/02/20 06:00 Intake Total 1370 ml Balance 1370 ml Laboratory Data 24H LABS Laboratory Tests 2 08/01/20 11:30: Bedside Glucose (Misc Panel) 337H 08/01/20 16:27: Bedside Glucose (Misc Panel) 118H 08/01/20 20:27: Bedside Glucose (Misc Panel) 203H 08/02/20 06:33: Bedside Glucose (Misc Panel) 210H Microbiology Microbiology 07/30/20 Gram Stain - Final, Complete 07/30/20 Wound Culture - Final, Complete Escherichia Coli Staphylococcus Sp Coag Neg Proteus Mirabilis 07/30/20 Anaerobic Culture - Final, Complete VINEET OLIVO MD August 02, 2020 10:40
--- NOTE | 2020-08-02 12:43 | CR ---
CONSULTATION DATE: 08/02/2020 Asked the consult by Dr. Berman and Dr. Bernardo for evaluation of left stump abscess. HISTORY OF PRESENT ILLNESS: Mrs. Harris is a pleasant 70-year-old female with a history of severe peripheral vascular disease, right above-knee amputation in 2006, and recent left above-knee amputation done by Dr. Bernardo on 06/28/2020. The patient lives at the [facility] and was sent back on July 18 with increasing pain and infection of the stump site. The patient had been on outpatient treatment with doxycycline, Levaquin, and clindamycin without any improvement. She had received 7 days of oral doxycycline and 2 days of clindamycin and Levaquin. She had no fever or chills. She was seen initially by Dr. Zaragoza on July 19 for incision and drainage (I and D), but she continued to have dehiscence of the wound and drainage, and therefore she was taken back to the operating room by Dr. Bernardo and had second surgery done on July 30. Cultures from July 19 were positive for Escherichia (E) coli, Proteus, eubacterium. On July 30 cultures were positive for E. coli, Proteus, Staphylococcus coagulase negative few, and anaerobic cultures were negative. Blood cultures, two sets, on admission were negative. She received so far intravenous (IV) cefepime from July 18 to August 02. It was discontinued today. Oral metronidazole from July 25. She feels well except for stump pain, especially with dressing changes. She has no nausea, floor of mouth, or diarrhea. No cough or shortness of breath. Never had any fever. MEDICAL HISTORY: Significant for: 1. Severe peripheral vascular disease. 2. Hypercholesterolemia. 3. Anxiety and depression. 4. Coronary artery disease. 5. Insulin-dependent diabetes. 6. Cerebrovascular accident (CVA) with right-sided hemiparesis and dysarthria in 2006. 7. Chronic kidney disease. 8. Atrial fibrillation, on Xarelto. 9. Gastroesophageal reflux disease. 10. Obesity. 11. Glaucoma. SURGICAL HISTORY: 1. Right above-knee amputation in 2006. 2. Left above-knee amputation in 2020. 3. Left femoral-popliteal bypass surgery. 4. Angiogram. 5. Carotid endarterectomy, left side. PERSONAL HISTORY: She quit smoking. Used to be a heavy smoker. No alcohol or drug use. She lives at the [facility]. FAMILY HISTORY: Significant for heart disease. REVIEW OF SYSTEMS: She denies any fever, chills, nausea, vomiting, diarrhea, abdominal pain. She has pain in the left stump, but otherwise review of systems is negative. PHYSICAL EXAMINATION: She is a pleasant, healthy looking female in no acute distress. HEART: Normal S1, S2. No murmurs, rubs, or gallops. LUNGS: Clear. No wheezes, rales, or rhonchi. ABDOMEN: Morbidly obese, soft, nontender. BREASTS: Pendulous with bilateral erythematous rash underneath the breasts. She has gauze to decrease moisture. Left chest wall peripheral intravenous (IV) is in place. EXTREMITIES: Bilateral above-knee amputation, right completely healed. Left with sutures in place and an area of open wound measuring about 2 x 2 cm, 2 cm depth, that was left open for drainage by Dr. Bernardo. MEDICATIONS: - Zolpidem 5 mg by mouth every night - aspirin 81 mg by mouth daily - aspirin 81 mg by mouth daily - Bactrim DS one tablet by mouth twice a day - doxycycline 100 mg by mouth twice a day - metronidazole was discontinued today after 8 days of treatment - cyclobenzaprine 10 mg by mouth three times a day as needed - insulin sliding scale - miconazole to abdominal fold twice a day - gabapentin 100 mg by mouth twice a day as needed - fish oil two capsules by mouth twice a day - Percocet one to two tablets by mouth every 6 as needed ALLERGIES: PENICILLIN, AMOXICILLIN, CEFAZOLIN, CIPROFLOXACIN, but patient tolerated cefepime. LABORATORY DATA: White count 11.7, down from 13.8, hemoglobin 10.9, hematocrit 36.4, platelets 336. ESR 80, up from 63. Sodium 139, potassium 5, bicarbonate 20, BUN 13, creatinine 0.59, glucose 181, calcium 8.6. Procalcitonin less than 0.05 on July 31 and 0.07 on August 01. CRP 7.69. Blood cultures, two sets, on July 18 negative. Chest x-ray: No acute disease. IMPRESSION: This is a 70-year-old female who had a left above-knee amputation on June 28. Had evidence of polymicrobial infection with an abscess. The patient had a drainage procedure done, I and D. She has been treated with cefepime and Flagyl. PLAN At this point I would switch her to oral antibiotics. Suggest switching to oral Bactrim DS to cover for E. coli and Proteus mirabilis at one tablet by mouth twice a day and continuing Flagyl for anaerobes 600 mg by mouth every 8 hours. There is no need for doxycycline. Staphylococcus coagulase negative does not need to be treated. It was only a few. Continue antibiotics until wound is healed for at least 10 days. Case was discussed with Dr. Bernardo. CLIFTON-FINE HOSPITALEnrique
[2020-08-02] MEDS: GABAPENTIN 100 MG CAP PO SCH ×2 (12:52→21:03)
[2020-08-02 14:00] VITALS: BP 118/70
[2020-08-02] MEDS: SERTRALINE HCL 25 MG TABLET PO SCH (21:03)
[2020-08-02] MEDS: rOPINIRole 0.25 MG TAB(REQUIP) PO SCH (21:03)
[2020-08-02] MEDS: SENNA 8.6 MG TAB (SENOKOT) PO SCH (21:04)
[2020-08-02] MEDS: ROSUVASTATIN 10 MG TAB (CRESTOR) PO SCH (21:04)
[2020-08-02] MEDS: LATANOPROST 0.005% OPHTH SOLN 2.5 ML OU SCH (21:05)
[2020-08-02 22:00] VITALS: BP 147/68
[2020-08-03 06:00] VITALS: BP 138/86
[2020-08-03] MEDS: metroNIDAZOLE (FLAGYL) 500MG TABLET PO SCH ×3 (06:08→21:53)
[2020-08-03] MEDS: DOCUSATE SODIUM 100MG CAPSULE PO SCH (07:51)
[2020-08-03] MEDS: OMEGA-3 1000MG CAPSULE PO SCH ×2 (07:51→21:54)
[2020-08-03] MEDS: LACTOBACILLUS ACIDOPHILUS CAP (BACID) PO SCH ×3 (07:51→17:54)
[2020-08-03] MEDS: GABAPENTIN 100 MG CAP PO SCH ×2 (07:51→21:54)
[2020-08-03] MEDS: ASPIRIN 81 MG CHEW TABLET PO SCH (07:51)
[2020-08-03] MEDS: allopurinoL 100 MG TAB PO SCH (07:52)
[2020-08-03] MEDS: BACTRIM 160MG/800MG DS TAB PO SCH ×2 (07:52→21:54)
[2020-08-03] MEDS: traMADol 50 MG TAB PO SCH ×2 (07:52→21:53)
[2020-08-03] MEDS: VITAMIN D 1,000 INTERNATIONAL UNITS TABLET PO SCH (07:52)
[2020-08-03] MEDS: OMEPRAZOLE 20 MG CAP PO SCH (07:52)
[2020-08-03] MEDS: RIVAROXABAN 20 MG TAB (XARELTO) PO SCH (07:52)
[2020-08-03] MEDS: METOPROLOL SUCC (TopROL XL) 100MG *XL* TAB PO SCH (07:53)
[2020-08-03] MEDS: LEVEMIR (INSULIN DETEMIR) 1 UNITS/0.01ML SC SCH (07:56)
[2020-08-03] MEDS: HumaLOG INSULIN (NovoLOG) PER UNIT SC SCH ×4 (07:56→21:00)
[2020-08-03] MEDS: MICONAZOLE 2 % POWDER (DESENEX) TOP SCH ×2 (07:57→21:56)
--- NOTE | 2020-08-03 11:10 | IPNPDOC ---
Date Seen The patient was seen on 08/03/20. Progress Note Left AKA Stump Infection: per ID, Dr. Abreu, complete bactrim and flagyl. no need for iv dalvance as outpt per vascular surgery, Dr. Martinez, continue w inpatient care. SNF care is inadequate due to recurrence of abscess . change to ALC/SNF status for inpt monitoring of recurrent abscess. biweekly lab monitoring. VS, I&O, 24H, Fishbone Vital Signs/I&O Vital Signs Date Time Temp Pulse Resp B/P (MAP) Pulse Ox O2 Delivery O2 Flow Rate FiO2 08/03/20 07:53 138/86 08/03/20 07:53 86 08/03/20 07:52 17 Room Air 08/03/20 06:00 97.0 100 I&O- Last 24 Hours up to 6 AM 08/03/20 06:00 Intake Total 840 ml Output Total 0 ml Balance 840 ml Laboratory Data 24H LABS Laboratory Tests 2 08/02/20 11:40: Bedside Glucose (Misc Panel) 247H 08/02/20 16:30: Bedside Glucose (Misc Panel) 121H 08/02/20 20:08: Bedside Glucose (Misc Panel) 219H 08/03/20 05:51: Bedside Glucose (Misc Panel) 189H Microbiology Microbiology 07/30/20 Gram Stain - Final, Complete 07/30/20 Wound Culture - Final, Complete Escherichia Coli Staphylococcus Sp Coag Neg Proteus Mirabilis 07/30/20 Anaerobic Culture - Final, Complete ROMERO SANDOVAL MD August 03, 2020 11:10
[2020-08-03] MEDS: FERROUS SULFATE 325MG TAB PO SCH (13:09)
[2020-08-03 14:00] VITALS: BP 130/80
[2020-08-03] MEDS: ACETAMINOPHEN TAB 650MG DOSE (2X325MG) PO PRN (16:54)
[2020-08-03] MEDS: SENNA 8.6 MG TAB (SENOKOT) PO SCH (21:53)
[2020-08-03] MEDS: rOPINIRole 0.25 MG TAB(REQUIP) PO SCH (21:54)
[2020-08-03] MEDS: ROSUVASTATIN 10 MG TAB (CRESTOR) PO SCH (21:54)
[2020-08-03] MEDS: SERTRALINE HCL 25 MG TABLET PO SCH (21:54)
[2020-08-03] MEDS: LATANOPROST 0.005% OPHTH SOLN 2.5 ML OU SCH (21:56)
[2020-08-03 22:00] VITALS: BP 142/78
[2020-08-04] MEDS: metroNIDAZOLE (FLAGYL) 500MG TABLET PO SCH ×3 (05:57→21:45)
[2020-08-04 06:00] VITALS: BP 160/70
[2020-08-04] MEDS: DOCUSATE SODIUM 100MG CAPSULE PO SCH (08:57)
[2020-08-04] MEDS: OMEPRAZOLE 20 MG CAP PO SCH (08:57)
[2020-08-04] MEDS: allopurinoL 100 MG TAB PO SCH (08:57)
[2020-08-04] MEDS: traMADol 50 MG TAB PO SCH ×2 (08:57→21:46)
[2020-08-04] MEDS: VITAMIN D 1,000 INTERNATIONAL UNITS TABLET PO SCH (08:57)
[2020-08-04] MEDS: LACTOBACILLUS ACIDOPHILUS CAP (BACID) PO SCH ×3 (08:57→18:21)
[2020-08-04] MEDS: GABAPENTIN 100 MG CAP PO SCH ×2 (08:57→21:46)
[2020-08-04] MEDS: BACTRIM 160MG/800MG DS TAB PO SCH ×2 (08:57→21:45)
[2020-08-04] MEDS: RIVAROXABAN 20 MG TAB (XARELTO) PO SCH (08:57)
[2020-08-04] MEDS: ASPIRIN 81 MG CHEW TABLET PO SCH (08:57)
[2020-08-04] MEDS: LEVEMIR (INSULIN DETEMIR) 1 UNITS/0.01ML SC SCH (08:58)
[2020-08-04] MEDS: METOPROLOL SUCC (TopROL XL) 100MG *XL* TAB PO SCH (08:58)
[2020-08-04] MEDS: OMEGA-3 1000MG CAPSULE PO SCH ×2 (08:58→21:45)
[2020-08-04] MEDS: MICONAZOLE 2 % POWDER (DESENEX) TOP SCH ×2 (08:59→21:47)
[2020-08-04] MEDS: HumaLOG INSULIN (NovoLOG) PER UNIT SC SCH ×4 (08:59→21:00)
[2020-08-04] MEDS: FERROUS SULFATE 325MG TAB PO SCH (12:25)
[2020-08-04 14:00] VITALS: BP 120/70
[2020-08-04] MEDS: rOPINIRole 0.25 MG TAB(REQUIP) PO SCH (21:44)
[2020-08-04] MEDS: ROSUVASTATIN 10 MG TAB (CRESTOR) PO SCH (21:45)
[2020-08-04] MEDS: SERTRALINE HCL 25 MG TABLET PO SCH (21:45)
[2020-08-04] MEDS: SENNA 8.6 MG TAB (SENOKOT) PO SCH (21:45)
[2020-08-04] MEDS: LATANOPROST 0.005% OPHTH SOLN 2.5 ML OU SCH (21:46)
[2020-08-05 06:00] VITALS: BP 142/76
[2020-08-05] MEDS: metroNIDAZOLE (FLAGYL) 500MG TABLET PO SCH ×3 (06:13→21:06)
[2020-08-05 07:45] LABS: HEMATOCRIT 38.3 % (36.0-47.0); HEMOGLOBIN 11.2 g/dl (12.0-15.5); MEAN CORPUSCULAR HEMOGLOBIN 25.2 pg (27.0-33.0); MEAN CORPUSCULAR HGB CONC 29.2 g/dl (32.0-36.5); MEAN CORPUSCULAR VOLUME 86.1 fl (80.0-96.0); PLATELET COUNT, AUTOMATED 418 10^3/uL (150-450); RED BLOOD COUNT 4.45 10^6/uL (4.00-5.40); WHITE BLOOD COUNT 8.8 10^3/uL (4.0-10.0)
[2020-08-05 08:07] LABS: BLOOD UREA NITROGEN 16 MG/DL (7-18); CARBON DIOXIDE LEVEL 24 MEQ/L (21-32); CHLORIDE LEVEL 106 MEQ/L (98-107); CREATININE FOR GFR 0.75 MG/DL (0.55-1.30); GLOMERULAR FILTRATION RATE > 60.0 (>45); GLUCOSE, FASTING 189 MG/DL (70-100); POTASSIUM SERUM 4.7 MEQ/L (3.5-5.1); SODIUM LEVEL 136 MEQ/L (136-145)
[2020-08-05] MEDS: DOCUSATE SODIUM 100MG CAPSULE PO SCH (09:36)
[2020-08-05] MEDS: OMEPRAZOLE 20 MG CAP PO SCH (09:36)
[2020-08-05] MEDS: BACTRIM 160MG/800MG DS TAB PO SCH ×2 (09:36→21:06)
[2020-08-05] MEDS: VITAMIN D 1,000 INTERNATIONAL UNITS TABLET PO SCH (09:37)
[2020-08-05] MEDS: GABAPENTIN 100 MG CAP PO SCH ×2 (09:37→21:06)
[2020-08-05] MEDS: RIVAROXABAN 20 MG TAB (XARELTO) PO SCH (09:37)
[2020-08-05] MEDS: METOPROLOL SUCC (TopROL XL) 100MG *XL* TAB PO SCH (09:37)
[2020-08-05] MEDS: LACTOBACILLUS ACIDOPHILUS CAP (BACID) PO SCH ×3 (09:38→18:07)
[2020-08-05] MEDS: ASPIRIN 81 MG CHEW TABLET PO SCH (09:38)
[2020-08-05] MEDS: traMADol 50 MG TAB PO SCH ×2 (09:38→21:06)
[2020-08-05] MEDS: allopurinoL 100 MG TAB PO SCH (09:38)
[2020-08-05] MEDS: OMEGA-3 1000MG CAPSULE PO SCH ×2 (09:38→21:05)
[2020-08-05] MEDS: MICONAZOLE 2 % POWDER (DESENEX) TOP SCH ×2 (09:39→21:07)
[2020-08-05] MEDS: LEVEMIR (INSULIN DETEMIR) 1 UNITS/0.01ML SC SCH (09:39)
[2020-08-05] MEDS: HumaLOG INSULIN (NovoLOG) PER UNIT SC SCH ×4 (09:40→20:59)
[2020-08-05] MEDS: FERROUS SULFATE 325MG TAB PO SCH (13:32)
[2020-08-05] MEDS: ROSUVASTATIN 10 MG TAB (CRESTOR) PO SCH (21:05)
[2020-08-05] MEDS: rOPINIRole 0.25 MG TAB(REQUIP) PO SCH (21:05)
[2020-08-05] MEDS: SENNA 8.6 MG TAB (SENOKOT) PO SCH (21:06)
[2020-08-05] MEDS: LATANOPROST 0.005% OPHTH SOLN 2.5 ML OU SCH (21:06)
[2020-08-05] MEDS: SERTRALINE HCL 25 MG TABLET PO SCH (21:25)
[2020-08-06 06:00] VITALS: BP 150/90
[2020-08-06] MEDS: metroNIDAZOLE (FLAGYL) 500MG TABLET PO SCH ×3 (06:04→21:27)
[2020-08-06] MEDS: GABAPENTIN 100 MG CAP PO SCH ×2 (08:15→21:27)
[2020-08-06] MEDS: RIVAROXABAN 20 MG TAB (XARELTO) PO SCH (08:15)
[2020-08-06] MEDS: HumaLOG INSULIN (NovoLOG) PER UNIT SC SCH ×4 (08:15→20:43)
[2020-08-06] MEDS: LEVEMIR (INSULIN DETEMIR) 1 UNITS/0.01ML SC SCH (08:15)
[2020-08-06] MEDS: ASPIRIN 81 MG CHEW TABLET PO SCH (08:16)
[2020-08-06] MEDS: traMADol 50 MG TAB PO SCH ×2 (08:16→21:27)
[2020-08-06] MEDS: OMEPRAZOLE 20 MG CAP PO SCH (08:16)
[2020-08-06] MEDS: allopurinoL 100 MG TAB PO SCH (08:16)
[2020-08-06] MEDS: VITAMIN D 1,000 INTERNATIONAL UNITS TABLET PO SCH (08:16)
[2020-08-06] MEDS: OMEGA-3 1000MG CAPSULE PO SCH ×2 (08:16→21:27)
[2020-08-06] MEDS: LACTOBACILLUS ACIDOPHILUS CAP (BACID) PO SCH ×3 (08:16→17:01)
[2020-08-06] MEDS: BACTRIM 160MG/800MG DS TAB PO SCH ×2 (08:16→21:26)
[2020-08-06] MEDS: DOCUSATE SODIUM 100MG CAPSULE PO SCH (08:16)
[2020-08-06] MEDS: MICONAZOLE 2 % POWDER (DESENEX) TOP SCH ×2 (08:19→21:28)
[2020-08-06] MEDS: METOPROLOL SUCC (TopROL XL) 100MG *XL* TAB PO SCH (08:20)
[2020-08-06] MEDS: FERROUS SULFATE 325MG TAB PO SCH (12:57)
[2020-08-06] MEDS: ACETAMINOPHEN TAB 650MG DOSE (2X325MG) PO PRN (17:01)
--- NOTE | 2020-08-06 19:28 | IPNPDOC ---
Date Seen The patient was seen on 08/06/20. Progress Note INFECTIOUS DISEASE PROGRESS NOTE SUBJECTIVE: Ms. Harris was seen and examined at the bedside this afternoon. She has no complaints but states she still has minimal pain at her stump. Otherwise, nursing has no new concerns. She denies any nausea/vomiting/diarrhea at this time. OBJECTIVE VITAL SIGNS: see below GENERAL: very pleasant, alert and oriented, in no apparent distress, conversant in full sentences. HEENT: PERRL, EOMI, Oral mucous membranes are moist without lesions. Teeth are in poor condition. NECK: The patient has no noted JVD. No adenopathy is appreciated. No thyromegaly CHEST/LUNGS: Lungs are clear bilaterally without rhonchi, rales, or wheezes. There is no subcutaneous air appreciated. There is no tenderness to the chest wall. HEART: Regular rate and rhythm. Normal S1/S2. ABDOMEN: Soft, nontender, and nondistended. Bowel sounds are positive. No organomegaly is appreciated. No masses are appreciated. There are no peritoneal signs. There is no [place] sign. EXTREMITIES: left stump was examined and noted to be healing well. There is an opening about 3cm x 3cm circular that is about 2cm deep that has no oozing or pus noted. No obvious signs of infection. SKIN: The patients skin is warm and dry PSYCHIATRIC: AAO x 3, normal mood/affect NEUROLOGIC: Patient has residual speech difficulty from previous stroke and R- sided weakness. LABORATORY DATA, IMAGING STUDIES, MICROBIOLOGY: Please see below. ASSESSMENT AND PLAN: This is a 70 YO F with history of PVD and R AKA in 2006 who presents for L AKA on 07/18/20 complicated by dehiscence of the wound and active drainage for which she returned to the OR for I&D and found to have wound cultures polymicrobial. ID is consulted for antibiotic management. PLAN: -Continue Bactrim DS for E.coli and Proteus and Flagyl 600mg Q8H, day 5 out of total 10 days -Continue daily dressing changes as directed, monitor wound for proper healing VS, I&O, 24H, Fishbone Vital Signs/I&O Vital Signs Date Time Temp Pulse Resp B/P (MAP) Pulse Ox O2 Delivery O2 Flow Rate FiO2 08/06/20 08:20 78 134/68 08/06/20 08:16 17 08/06/20 06:00 97.5 99 Room Air I&O- Last 24 Hours up to 6 AM 08/06/20 06:00 Intake Total 1410 ml Output Total 0 ml Balance 1410 ml Laboratory Data 24H LABS Laboratory Tests 2 08/05/20 19:59: Bedside Glucose (Misc Panel) 173H 08/06/20 06:21: Bedside Glucose (Misc Panel) 179H 08/06/20 11:44: Bedside Glucose (Misc Panel) 246H 08/06/20 16:40: Bedside Glucose (Misc Panel) 119H Microbiology Microbiology 07/30/20 Gram Stain - Final, Complete 07/30/20 Wound Culture - Final, Complete Escherichia Coli Staphylococcus Sp Coag Neg Proteus Mirabilis 07/30/20 Anaerobic Culture - Final, Complete GME ATTESTATION GME ATTESTATION My faculty preceptor for this patient encounter was physically present during the encounter and was fully available. All aspects of the patient interview, examination, medical decision making process, and medical care plan development were reviewed and approved by the faculty preceptor. The faculty preceptor is aware and concurs with the plan as stated in the body of this note and will attest to such by his/her cosignature. JALYN SHIELDS MD August 06, 2020 19:28
--- NOTE | 2020-08-06 19:44 | IPNPDOC ---
Date Seen The patient was seen on 08/06/20. Progress Note SUBJECTIVE: Pain with evaluation of stump with ID in room. Wound appears clean. Afebrile, WBC wnl. Denies chest pain, fevers, chills, n/v/d. OBJECTIVE: PHYSICAL EXAM: VITAL SIGNS: Please see below GENERAL: Awake, alert, and oriented to person, place, and time. Answering questions appropriately. LUNGS: Clear to auscultation. No wheezing, rales, or rhonchi. HEART: S1, S2. Sinus rhythm. ABDOMEN: Obese, soft, nontender, and nondistended. EXTREMITIES: Left lower extremity AKA stump incisions/stitches appear clean, open wound appears clean as well. Nonsuppurative, no drainage, no foul smell. Painful to touch/cleaning of wound. NEURO: CN 2-12 intact, no focal deficits. LABORATORY DATA: Please see below MICRO: Wound Cx 08/02/20, see senstivities in chart : ESCHERICHIA COLI STAPHYLOCOCCUS SP COAG NEG PROTEUS MIRABILIS ASSESSMENT: 70 YO F with history of PVD and R AKA in 2006, L AKA on 07/18/20 complicated by dehiscence of the wound admitted for Left above the knee infection with drainage found to be polymicrobial. DIAGNOSES: 1. Polymicrobial (see above) left [id number] postoperative infection s/p excisional debridement of left above-knee amputation stump 07/19/20 and again later on 07/30/20 2. Insulin-dependent diabetes. 3. Severe peripheral arterial disease status post bilateral [id number] amputation. 4. Chronic atrial fibrillation. 5. Hypertension. 6. Hyperlipidemia. 7. Coronary artery disease (CAD). 8. Gout. 9. Reflux. 10. Glaucoma. 11. Depression. 12. Intertrigo candidiasis. 13. History of cerebrovascular accident (CVA) in 2006. PLAN: The patient had undergone incision, drainage, and debridement 07/19/20 by surgery (Dr. Zaragoza) and again by Dr. Bernardo on 07/30. Discussed with ID today: c/w bactrim and flagyl for total of 10 days. wound care with daily dressing changes. Holding off on sending back to [place] until abx treatment is complete, as there is a concern for reinfection due to poor wound care there. Pain persists with wound changes, has increased anxiety. Other chronic issues appear stable. She remains under ALC status. Plan is return to [place] after 10 days of abx, full concetta at baseline. VS, I&O, 24H, Fishbone Vital Signs/I&O Vital Signs Date Time Temp Pulse Resp B/P (MAP) Pulse Ox O2 Delivery O2 Flow Rate FiO2 08/06/20 08:20 78 134/68 08/06/20 08:16 17 08/06/20 06:00 97.5 99 Room Air I&O- Last 24 Hours up to 6 AM 08/06/20 06:00 Intake Total 1410 ml Output Total 0 ml Balance 1410 ml Laboratory Data 24H LABS Laboratory Tests 2 08/05/20 19:59: Bedside Glucose (Misc Panel) 173H 08/06/20 06:21: Bedside Glucose (Misc Panel) 179H 08/06/20 11:44: Bedside Glucose (Misc Panel) 246H 08/06/20 16:40: Bedside Glucose (Misc Panel) 119H Microbiology Microbiology 07/30/20 Gram Stain - Final, Complete 07/30/20 Wound Culture - Final, Complete Escherichia Coli Staphylococcus Sp Coag Neg Proteus Mirabilis 07/30/20 Anaerobic Culture - Final, Complete Telma Spicer MD August 06, 2020 19:44
[2020-08-06] MEDS: SENNA 8.6 MG TAB (SENOKOT) PO SCH (21:27)
[2020-08-06] MEDS: rOPINIRole 0.25 MG TAB(REQUIP) PO SCH (21:27)
[2020-08-06] MEDS: SERTRALINE HCL 25 MG TABLET PO SCH (21:28)
[2020-08-06] MEDS: LATANOPROST 0.005% OPHTH SOLN 2.5 ML OU SCH (21:28)
[2020-08-06] MEDS: ROSUVASTATIN 10 MG TAB (CRESTOR) PO SCH (21:28)
[2020-08-07] MEDS: metroNIDAZOLE (FLAGYL) 500MG TABLET PO SCH ×3 (05:19→21:36)
[2020-08-07 06:00] VITALS: BP 143/85
[2020-08-07] MEDS: ACETAMINOPHEN TAB 650MG DOSE (2X325MG) PO PRN (06:33)
[2020-08-07] MEDS: HumaLOG INSULIN (NovoLOG) PER UNIT SC SCH ×4 (09:15→21:00)
[2020-08-07] MEDS: DOCUSATE SODIUM 100MG CAPSULE PO SCH (09:16)
[2020-08-07] MEDS: LEVEMIR (INSULIN DETEMIR) 1 UNITS/0.01ML SC SCH (09:16)
[2020-08-07] MEDS: GABAPENTIN 100 MG CAP PO SCH ×2 (09:16→21:36)
[2020-08-07] MEDS: LACTOBACILLUS ACIDOPHILUS CAP (BACID) PO SCH ×3 (09:16→18:29)
[2020-08-07] MEDS: ASPIRIN 81 MG CHEW TABLET PO SCH (09:16)
[2020-08-07] MEDS: RIVAROXABAN 20 MG TAB (XARELTO) PO SCH (09:17)
[2020-08-07] MEDS: OMEGA-3 1000MG CAPSULE PO SCH ×2 (09:17→21:36)
[2020-08-07] MEDS: OMEPRAZOLE 20 MG CAP PO SCH (09:17)
[2020-08-07] MEDS: MICONAZOLE 2 % POWDER (DESENEX) TOP SCH ×2 (09:17→21:42)
[2020-08-07] MEDS: VITAMIN D 1,000 INTERNATIONAL UNITS TABLET PO SCH (09:17)
[2020-08-07] MEDS: BACTRIM 160MG/800MG DS TAB PO SCH ×2 (09:17→21:35)
[2020-08-07] MEDS: allopurinoL 100 MG TAB PO SCH (09:17)
[2020-08-07] MEDS: METOPROLOL SUCC (TopROL XL) 100MG *XL* TAB PO SCH (09:18)
[2020-08-07] MEDS: traMADol 50 MG TAB PO SCH ×2 (09:18→21:37)
[2020-08-07] MEDS: FERROUS SULFATE 325MG TAB PO SCH (13:07)
[2020-08-07] MEDS: SERTRALINE HCL 25 MG TABLET PO SCH (21:35)
[2020-08-07] MEDS: rOPINIRole 0.25 MG TAB(REQUIP) PO SCH (21:35)
[2020-08-07] MEDS: SENNA 8.6 MG TAB (SENOKOT) PO SCH (21:36)
[2020-08-07] MEDS: ROSUVASTATIN 10 MG TAB (CRESTOR) PO SCH (21:36)
[2020-08-07] MEDS: LATANOPROST 0.005% OPHTH SOLN 2.5 ML OU SCH (21:42)
[2020-08-08] MEDS: metroNIDAZOLE (FLAGYL) 500MG TABLET PO SCH ×3 (05:17→21:34)
[2020-08-08 06:00] VITALS: BP 142/0
[2020-08-08] MEDS: LEVEMIR (INSULIN DETEMIR) 1 UNITS/0.01ML SC SCH (08:40)
[2020-08-08] MEDS: HumaLOG INSULIN (NovoLOG) PER UNIT SC SCH ×4 (08:41→21:00)
[2020-08-08] MEDS: ASPIRIN 81 MG CHEW TABLET PO SCH (08:42)
[2020-08-08] MEDS: GABAPENTIN 100 MG CAP PO SCH ×2 (08:42→21:34)
[2020-08-08] MEDS: VITAMIN D 1,000 INTERNATIONAL UNITS TABLET PO SCH (08:42)
[2020-08-08] MEDS: LACTOBACILLUS ACIDOPHILUS CAP (BACID) PO SCH ×3 (08:42→18:41)
[2020-08-08 08:43] LABS: HEMATOCRIT 37.9 % (36.0-47.0); HEMOGLOBIN 11.5 g/dl (12.0-15.5); MEAN CORPUSCULAR HEMOGLOBIN 26.3 pg (27.0-33.0); MEAN CORPUSCULAR HGB CONC 30.3 g/dl (32.0-36.5); MEAN CORPUSCULAR VOLUME 86.5 fl (80.0-96.0); PLATELET COUNT, AUTOMATED 440 10^3/uL (150-450); RED BLOOD COUNT 4.38 10^6/uL (4.00-5.40)
[2020-08-08] MEDS: DOCUSATE SODIUM 100MG CAPSULE PO SCH (08:43)
[2020-08-08] MEDS: OMEGA-3 1000MG CAPSULE PO SCH ×2 (08:43→21:34)
[2020-08-08] MEDS: allopurinoL 100 MG TAB PO SCH (08:44)
[2020-08-08] MEDS: METOPROLOL SUCC (TopROL XL) 100MG *XL* TAB PO SCH (08:44)
[2020-08-08] MEDS: OMEPRAZOLE 20 MG CAP PO SCH (08:44)
[2020-08-08] MEDS: RIVAROXABAN 20 MG TAB (XARELTO) PO SCH (08:44)
[2020-08-08] MEDS: BACTRIM 160MG/800MG DS TAB PO SCH ×2 (08:44→21:33)
[2020-08-08] MEDS: MICONAZOLE 2 % POWDER (DESENEX) TOP SCH ×2 (08:45→21:35)
[2020-08-08] MEDS: traMADol 50 MG TAB PO SCH ×2 (08:45→21:35)
[2020-08-08 09:02] LABS: BLOOD UREA NITROGEN 19 MG/DL (7-18); CALCIUM LEVEL 9.1 MG/DL (8.8-10.2); CARBON DIOXIDE LEVEL 26 MEQ/L (21-32); CHLORIDE LEVEL 106 MEQ/L (98-107); CREATININE FOR GFR 0.87 MG/DL (0.55-1.30); GLOMERULAR FILTRATION RATE > 60.0 (>45); GLUCOSE, FASTING 192 MG/DL (70-100); POTASSIUM SERUM 5.2 MEQ/L (3.5-5.1); SODIUM LEVEL 137 MEQ/L (136-145)
[2020-08-08] MEDS: FERROUS SULFATE 325MG TAB PO SCH (12:15)
[2020-08-08] MEDS: ROSUVASTATIN 10 MG TAB (CRESTOR) PO SCH (21:33)
[2020-08-08] MEDS: SERTRALINE HCL 25 MG TABLET PO SCH (21:34)
[2020-08-08] MEDS: LATANOPROST 0.005% OPHTH SOLN 2.5 ML OU SCH (21:34)
[2020-08-08] MEDS: rOPINIRole 0.25 MG TAB(REQUIP) PO SCH (21:34)
[2020-08-08] MEDS: SENNA 8.6 MG TAB (SENOKOT) PO SCH (21:34)
[2020-08-09 06:00] VITALS: BP 153/89
[2020-08-09] MEDS: metroNIDAZOLE (FLAGYL) 500MG TABLET PO SCH ×3 (06:50→21:11)
[2020-08-09] MEDS: VITAMIN D 1,000 INTERNATIONAL UNITS TABLET PO SCH (09:38)
[2020-08-09] MEDS: allopurinoL 100 MG TAB PO SCH (09:38)
[2020-08-09] MEDS: GABAPENTIN 100 MG CAP PO SCH ×2 (09:38→21:11)
[2020-08-09] MEDS: HumaLOG INSULIN (NovoLOG) PER UNIT SC SCH ×4 (09:38→21:00)
[2020-08-09] MEDS: ASPIRIN 81 MG CHEW TABLET PO SCH (09:38)
[2020-08-09] MEDS: LACTOBACILLUS ACIDOPHILUS CAP (BACID) PO SCH ×3 (09:38→18:32)
[2020-08-09] MEDS: BACTRIM 160MG/800MG DS TAB PO SCH ×2 (09:38→21:10)
[2020-08-09] MEDS: LEVEMIR (INSULIN DETEMIR) 1 UNITS/0.01ML SC SCH (09:38)
[2020-08-09] MEDS: OMEGA-3 1000MG CAPSULE PO SCH ×2 (09:38→21:11)
[2020-08-09] MEDS: DOCUSATE SODIUM 100MG CAPSULE PO SCH (09:39)
[2020-08-09] MEDS: OMEPRAZOLE 20 MG CAP PO SCH (09:39)
[2020-08-09] MEDS: METOPROLOL SUCC (TopROL XL) 100MG *XL* TAB PO SCH (09:39)
[2020-08-09] MEDS: RIVAROXABAN 20 MG TAB (XARELTO) PO SCH (09:39)
[2020-08-09] MEDS: traMADol 50 MG TAB PO SCH ×2 (09:40→21:13)
[2020-08-09] MEDS: MICONAZOLE 2 % POWDER (DESENEX) TOP SCH ×2 (09:41→21:12)
[2020-08-09] MEDS: FERROUS SULFATE 325MG TAB PO SCH (13:58)
[2020-08-09 14:00] VITALS: BP 123/45
[2020-08-09] MEDS: ROSUVASTATIN 10 MG TAB (CRESTOR) PO SCH (21:10)
[2020-08-09] MEDS: rOPINIRole 0.25 MG TAB(REQUIP) PO SCH (21:11)
[2020-08-09] MEDS: SERTRALINE HCL 25 MG TABLET PO SCH (21:11)
[2020-08-09] MEDS: SENNA 8.6 MG TAB (SENOKOT) PO SCH (21:11)
[2020-08-09] MEDS: LATANOPROST 0.005% OPHTH SOLN 2.5 ML OU SCH (21:12)
[2020-08-10] MEDS: metroNIDAZOLE (FLAGYL) 500MG TABLET PO SCH ×3 (05:20→20:53)
[2020-08-10 06:00] VITALS: BP 136/78
[2020-08-10 08:16] VITALS: BP 160/87
[2020-08-10] MEDS: MICONAZOLE 2 % POWDER (DESENEX) TOP SCH ×2 (09:00→20:53)
[2020-08-10] MEDS: HumaLOG INSULIN (NovoLOG) PER UNIT SC SCH ×4 (09:42→20:52)
[2020-08-10] MEDS: LACTOBACILLUS ACIDOPHILUS CAP (BACID) PO SCH ×3 (09:42→18:01)
[2020-08-10] MEDS: OMEGA-3 1000MG CAPSULE PO SCH ×2 (09:43→20:52)
[2020-08-10] MEDS: allopurinoL 100 MG TAB PO SCH (09:43)
[2020-08-10] MEDS: GABAPENTIN 100 MG CAP PO SCH ×2 (09:43→20:51)
[2020-08-10] MEDS: RIVAROXABAN 20 MG TAB (XARELTO) PO SCH (09:43)
[2020-08-10] MEDS: METOPROLOL SUCC (TopROL XL) 100MG *XL* TAB PO SCH (09:43)
[2020-08-10] MEDS: VITAMIN D 1,000 INTERNATIONAL UNITS TABLET PO SCH (09:43)
[2020-08-10] MEDS: BACTRIM 160MG/800MG DS TAB PO SCH ×2 (09:43→20:51)
[2020-08-10] MEDS: ASPIRIN 81 MG CHEW TABLET PO SCH (09:43)
[2020-08-10] MEDS: OMEPRAZOLE 20 MG CAP PO SCH (09:43)
[2020-08-10] MEDS: LEVEMIR (INSULIN DETEMIR) 1 UNITS/0.01ML SC SCH (09:44)
[2020-08-10] MEDS: DOCUSATE SODIUM 100MG CAPSULE PO SCH (09:44)
[2020-08-10] MEDS: traMADol 50 MG TAB PO SCH ×2 (09:44→20:53)
[2020-08-10 10:47] LABS: HEMATOCRIT 38.2 % (36.0-47.0); HEMOGLOBIN 11.2 g/dl (12.0-15.5); MEAN CORPUSCULAR HEMOGLOBIN 26.1 pg (27.0-33.0); MEAN CORPUSCULAR HGB CONC 29.3 g/dl (32.0-36.5); PLATELET COUNT, AUTOMATED 395 10^3/uL (150-450); RED BLOOD COUNT 4.29 10^6/uL (4.00-5.40); WHITE BLOOD COUNT 7.8 10^3/uL (4.0-10.0)
[2020-08-10 11:03] LABS: ALBUMIN 2.8 GM/DL (3.2-5.2); ALT/SGPT 19 U/L (12-78); BILIRUBIN,TOTAL 0.2 MG/DL (0.2-1.0); BLOOD UREA NITROGEN 22 MG/DL (7-18); CALCIUM LEVEL 8.5 MG/DL (8.8-10.2); CARBON DIOXIDE LEVEL 20 MEQ/L (21-32); CHLORIDE LEVEL 107 MEQ/L (98-107); CREATININE FOR GFR 0.96 MG/DL (0.55-1.30); GLOMERULAR FILTRATION RATE > 60.0 (>45); GLUCOSE, FASTING 305 MG/DL (70-100); POTASSIUM SERUM 5.2 MEQ/L (3.5-5.1); SODIUM LEVEL 134 MEQ/L (136-145); TOTAL PROTEIN 6.2 GM/DL (6.4-8.2)
[2020-08-10] MEDS: FERROUS SULFATE 325MG TAB PO SCH (13:29)
[2020-08-10] MEDS: ACETAMINOPHEN TAB 650MG DOSE (2X325MG) PO PRN (13:30)
--- NOTE | 2020-08-10 18:58 | IPNPDOC ---
Date Seen The patient was seen on 08/10/20. Progress Note SUBJECTIVE: Called about rash that has been on patient's back for unknown amount of time on the right thoracic, upper lumbar area of back. Patient states she gets very hot and sweats often here, does not look herpetic lesions crossing dermatomes currently but according to night nurse these were fluid filled blisters 08/09. She denies itching, pain, tingling in this area. Has no pain on palpation of it. K still slightly elevated on labs, watching. Otherwise, no acute complaints. OBJECTIVE: PHYSICAL EXAM: VITAL SIGNS: Please see below GENERAL: Awake, alert, and oriented to person, place, and time. Answering questions appropriately. LUNGS: Clear to auscultation. No wheezing, rales, or rhonchi. HEART: S1, S2. Sinus rhythm. ABDOMEN: Obese, soft, nontender, and nondistended. EXTREMITIES: Left lower extremity AKA stump incisions/stitches appear clean, open wound appears clean as well. Nonsuppurative, no drainage, no foul smell. Painful to touch/cleaning of wound. INTEG: LLE stump wound described above. Rash on lumbar/thoracic area of back, nontender to touch but erythematous. Crusted lesions scattered, at different stages, no fluid filled blistering seen but looks like large red lesion on lumbar area was prior blister and popped. NEURO: CN 2-12 intact, no focal deficits. LABORATORY DATA: Please see below MICRO: Wound Cx 08/02/20, see senstivities in chart : ESCHERICHIA COLI STAPHYLOCOCCUS SP COAG NEG PROTEUS MIRABILIS ASSESSMENT: 70 YO F with history of PVD and R AKA in 2006, L AKA on 07/18/20 complicated by dehiscence of the wound admitted for Left above the knee infection with drainage found to be polymicrobial. DIAGNOSES: 1. Polymicrobial (see above) left qnlaf-[id number] postoperative infection s/p excisional debridement of left above-knee amputation stump 07/19/20 and again later on 07/30/20 2. Rash on thoracic, lumbar back area- possibly Herpes Zoster/shingles 3. Severe peripheral arterial disease status post bilateral vyeit-ncv-okow amputation. 4. Hyperkalemia, acute 5. Hypertension. 6. Hyperlipidemia. 7. Coronary artery disease (CAD). 8. Gout. 9. Reflux. 10. Glaucoma. 11. Depression. 12. Intertrigo candidiasis. 13. History of cerebrovascular accident (CVA) in 2006. 14. Insulin-dependent diabetes. 15. Chronic atrial fibrillation. PLAN: Would attempt to keep area of rash dry and exposed to air as much as possible, cannot r/o shingles. She is always hot and rarely has this area of the back breathe so perhaps also a heat type rash- not truly convinced of later. Starting on valtrex and will d/w ID on Wednesday. Contact precautions. Hyperkalemia persists, not on meds that can cause this. Will follow on regular labs as is not worsening. The patient had undergone incision, drainage, and debridement 07/19/20 by surgery (Dr. Zaragoza) and again by Dr. Bernardo on 07/30. Discussed with ID today: c/w bactrim and flagyl for total of 10 days. wound care with daily dressing changes. Holding off on sending back to [place] until abx treatment is complete, as there is a concern for reinfection due to poor wound care there. Pain persists with wound changes, has increased anxiety. Other chronic issues appear stable. She remains under ALC status. Plan is return to [facility] after 10 days of abx after weekend, full concetta at baseline. VS, I&O, 24H, Fishbone Vital Signs/I&O Vital Signs Date Time Temp Pulse Resp B/P (MAP) Pulse Ox O2 Delivery O2 Flow Rate FiO2 08/10/20 09:44 16 08/10/20 09:43 67 160/87 08/10/20 06:00 98.0 96 Room Air I&O- Last 24 Hours up to 6 AM 08/10/20 06:00 Intake Total 820 ml Balance 820 ml Laboratory Data 24H LABS Laboratory Tests 2 08/09/20 20:03: Bedside Glucose (Misc Panel) 155H 08/10/20 05:44: Bedside Glucose (Misc Panel) 164H 08/10/20 10:28: Nucleated Red Blood Cells % (auto) 0.0, Anion Gap 7L, Glomerular Filtration Rate > 60.0, Calcium Level 8.5L, Total Bilirubin 0.2, Aspartate Amino Transf (AST/SGOT) 26, Alanine Aminotransferase (ALT/SGPT) 19, Alkaline Phosphatase 92, Total Protein 6.2L, Albumin 2.8L, Albumin/Globulin Ratio 0.8L 08/10/20 12:04: Bedside Glucose (Misc Panel) 207H 08/10/20 17:15: Bedside Glucose (Misc Panel) 137H CBC/BMP Laboratory Tests 08/10/20 10:28 Telma Spicer MD August 10, 2020 18:58
[2020-08-10] MEDS: ROSUVASTATIN 10 MG TAB (CRESTOR) PO SCH (20:51)
[2020-08-10] MEDS: valACYclovir HCL 500 MG TAB PO SCH (20:52)
[2020-08-10] MEDS: SERTRALINE HCL 25 MG TABLET PO SCH (20:52)
[2020-08-10] MEDS: SENNA 8.6 MG TAB (SENOKOT) PO SCH (20:52)
[2020-08-10] MEDS: LATANOPROST 0.005% OPHTH SOLN 2.5 ML OU SCH (20:52)
[2020-08-10] MEDS: rOPINIRole 0.25 MG TAB(REQUIP) PO SCH (20:52)
[2020-08-11] MEDS: metroNIDAZOLE (FLAGYL) 500MG TABLET PO SCH ×3 (05:12→21:49)
[2020-08-11 05:40] LABS: HEMATOCRIT 37.5 % (36.0-47.0); HEMOGLOBIN 11.3 g/dl (12.0-15.5); MEAN CORPUSCULAR HEMOGLOBIN 26.2 pg (27.0-33.0); MEAN CORPUSCULAR HGB CONC 30.1 g/dl (32.0-36.5); MEAN CORPUSCULAR VOLUME 86.8 fl (80.0-96.0); PLATELET COUNT, AUTOMATED 418 10^3/uL (150-450); RED BLOOD COUNT 4.32 10^6/uL (4.00-5.40); WHITE BLOOD COUNT 6.7 10^3/uL (4.0-10.0)
[2020-08-11 06:00] VITALS: BP 138/74
[2020-08-11 06:08] LABS: BLOOD UREA NITROGEN 22 MG/DL (7-18); CALCIUM LEVEL 8.6 MG/DL (8.8-10.2); CARBON DIOXIDE LEVEL 22 MEQ/L (21-32); CHLORIDE LEVEL 106 MEQ/L (98-107); CREATININE FOR GFR 0.85 MG/DL (0.55-1.30); GLOMERULAR FILTRATION RATE > 60.0 (>45); GLUCOSE, FASTING 165 MG/DL (70-100); POTASSIUM SERUM 4.7 MEQ/L (3.5-5.1); SODIUM LEVEL 135 MEQ/L (136-145)
[2020-08-11] MEDS: traMADol 50 MG TAB PO SCH ×2 (08:20→21:50)
[2020-08-11] MEDS: HumaLOG INSULIN (NovoLOG) PER UNIT SC SCH ×4 (08:20→21:00)
[2020-08-11] MEDS: OMEGA-3 1000MG CAPSULE PO SCH ×2 (08:20→21:49)
[2020-08-11] MEDS: DOCUSATE SODIUM 100MG CAPSULE PO SCH (08:21)
[2020-08-11] MEDS: ASPIRIN 81 MG CHEW TABLET PO SCH (08:21)
[2020-08-11] MEDS: valACYclovir HCL 500 MG TAB PO SCH ×2 (08:21→21:51)
[2020-08-11] MEDS: GABAPENTIN 100 MG CAP PO SCH ×2 (08:21→21:51)
[2020-08-11] MEDS: OMEPRAZOLE 20 MG CAP PO SCH (08:21)
[2020-08-11] MEDS: BACTRIM 160MG/800MG DS TAB PO SCH ×2 (08:21→21:51)
[2020-08-11] MEDS: VITAMIN D 1,000 INTERNATIONAL UNITS TABLET PO SCH (08:22)
[2020-08-11] MEDS: allopurinoL 100 MG TAB PO SCH (08:22)
[2020-08-11] MEDS: METOPROLOL SUCC (TopROL XL) 100MG *XL* TAB PO SCH (08:24)
[2020-08-11] MEDS: RIVAROXABAN 20 MG TAB (XARELTO) PO SCH (08:25)
[2020-08-11] MEDS: LEVEMIR (INSULIN DETEMIR) 1 UNITS/0.01ML SC SCH (08:25)
[2020-08-11] MEDS: LACTOBACILLUS ACIDOPHILUS CAP (BACID) PO SCH ×3 (08:26→18:07)
[2020-08-11] MEDS: MICONAZOLE 2 % POWDER (DESENEX) TOP SCH ×2 (08:26→21:52)
[2020-08-11] MEDS: FERROUS SULFATE 325MG TAB PO SCH (13:26)
[2020-08-11] MEDS: ACETAMINOPHEN TAB 650MG DOSE (2X325MG) PO PRN (16:19)
[2020-08-11] MEDS: SENNA 8.6 MG TAB (SENOKOT) PO SCH (21:49)
[2020-08-11] MEDS: SERTRALINE HCL 25 MG TABLET PO SCH (21:50)
[2020-08-11] MEDS: ROSUVASTATIN 10 MG TAB (CRESTOR) PO SCH (21:51)
[2020-08-11] MEDS: rOPINIRole 0.25 MG TAB(REQUIP) PO SCH (21:51)
[2020-08-11] MEDS: LATANOPROST 0.005% OPHTH SOLN 2.5 ML OU SCH (21:52)
[2020-08-12] MEDS: metroNIDAZOLE (FLAGYL) 500MG TABLET PO SCH ×3 (05:54→21:01)
[2020-08-12 06:00] VITALS: BP 138/62
[2020-08-12 06:21] LABS: HEMATOCRIT 39.5 % (36.0-47.0); HEMOGLOBIN 11.7 g/dl (12.0-15.5); MEAN CORPUSCULAR HEMOGLOBIN 25.8 pg (27.0-33.0); MEAN CORPUSCULAR HGB CONC 29.6 g/dl (32.0-36.5); MEAN CORPUSCULAR VOLUME 87.2 fl (80.0-96.0); PLATELET COUNT, AUTOMATED 384 10^3/uL (150-450); RED BLOOD COUNT 4.53 10^6/uL (4.00-5.40); WHITE BLOOD COUNT 6.4 10^3/uL (4.0-10.0)
[2020-08-12 06:37] LABS: BLOOD UREA NITROGEN 20 MG/DL (7-18); C REACTIVE PROTEIN QUANTITATIV 0.94 MG/DL (0.00-0.30); CARBON DIOXIDE LEVEL 24 MEQ/L (21-32); CHLORIDE LEVEL 107 MEQ/L (98-107); CREATININE FOR GFR 0.86 MG/DL (0.55-1.30); GLOMERULAR FILTRATION RATE > 60.0 (>45); GLUCOSE, FASTING 175 MG/DL (70-100); POTASSIUM SERUM 5.1 MEQ/L (3.5-5.1); SODIUM LEVEL 138 MEQ/L (136-145)
[2020-08-12 06:50] LABS: ERYTHROCYTE SEDIMENTATION RATE 44 mm/hr (0-30)
[2020-08-12 08:35] VITALS: BP 130/78
[2020-08-12] MEDS: LEVEMIR (INSULIN DETEMIR) 1 UNITS/0.01ML SC SCH (08:40)
[2020-08-12] MEDS: valACYclovir HCL 500 MG TAB PO SCH (08:41)
[2020-08-12] MEDS: BACTRIM 160MG/800MG DS TAB PO SCH ×2 (08:41→20:58)
[2020-08-12] MEDS: LACTOBACILLUS ACIDOPHILUS CAP (BACID) PO SCH ×3 (08:41→17:25)
[2020-08-12] MEDS: VITAMIN D 1,000 INTERNATIONAL UNITS TABLET PO SCH (08:41)
[2020-08-12] MEDS: HumaLOG INSULIN (NovoLOG) PER UNIT SC SCH ×4 (08:41→21:00)
[2020-08-12] MEDS: ASPIRIN 81 MG CHEW TABLET PO SCH (08:41)
[2020-08-12] MEDS: GABAPENTIN 100 MG CAP PO SCH ×2 (08:41→20:57)
[2020-08-12] MEDS: DOCUSATE SODIUM 100MG CAPSULE PO SCH (08:41)
[2020-08-12] MEDS: RIVAROXABAN 20 MG TAB (XARELTO) PO SCH (08:41)
[2020-08-12] MEDS: traMADol 50 MG TAB PO SCH ×2 (08:42→20:58)
[2020-08-12] MEDS: METOPROLOL SUCC (TopROL XL) 100MG *XL* TAB PO SCH (08:43)
[2020-08-12] MEDS: allopurinoL 100 MG TAB PO SCH (08:43)
[2020-08-12] MEDS: OMEPRAZOLE 20 MG CAP PO SCH (08:43)
[2020-08-12] MEDS: OMEGA-3 1000MG CAPSULE PO SCH ×2 (08:43→20:57)
[2020-08-12] MEDS: MICONAZOLE 2 % POWDER (DESENEX) TOP SCH ×2 (08:44→20:58)
[2020-08-12] MEDS: FERROUS SULFATE 325MG TAB PO SCH (13:56)
[2020-08-12] MEDS: ACETAMINOPHEN TAB 650MG DOSE (2X325MG) PO PRN (17:26)
--- NOTE | 2020-08-12 17:46 | IPNPDOC ---
Date Seen The patient was seen on 08/12/20. Progress Note INFECTIOUS DISEASE PROGRESS NOTE SUBJECTIVE: Ms. Harris was seen and examined at the bedside this afternoon. She has no complaints. Nursing is concerned about a new rash appearing on the right side of her back, which crosses the midline. There are no lesions on her stomach. The patient denies any pain at the area where this rash is present. There were reports that there were blisters previously. Otherwise, no new issues. OBJECTIVE VITAL SIGNS: see below GENERAL: very pleasant, alert and oriented, in no apparent distress, conversant in full sentences. HEENT: PERRL, EOMI, Oral mucous membranes are moist without lesions. Teeth are in poor condition. NECK: The patient has no noted JVD. No adenopathy is appreciated. No thyromegaly CHEST/LUNGS: Lungs are clear bilaterally without rhonchi, rales, or wheezes. There is no subcutaneous air appreciated. There is no tenderness to the chest wall. HEART: Regular rate and rhythm. Normal S1/S2. ABDOMEN: Soft, nontender, and nondistended. Bowel sounds are positive. No organomegaly is appreciated. No masses are appreciated. There are no peritoneal signs. There is no [place] sign. EXTREMITIES: left stump was examined and noted to be healing well. There is an opening about 3cm x 3cm circular that is about 2cm deep that has no oozing or pus noted. No obvious signs of infection. SKIN: There is a group of what appear to have been vesicles that have sloughed off on the right side of the patient's back that are now flat and crusted. Not confined to a certain dermatome. No other blisters or vesicles present. PSYCHIATRIC: AAO x 3, normal mood/affect NEUROLOGIC: Patient has residual speech difficulty from previous stroke and R- sided weakness. LABORATORY DATA, IMAGING STUDIES, MICROBIOLOGY: Please see below. ASSESSMENT AND PLAN: This is a 70 YO F with history of PVD and R AKA in 2006 who presents for L AKA on 07/18/20 complicated by dehiscence of the wound and active drainage for which she returned to the OR for I&D and found to have wound cultures polymicrobial. ID is consulted for antibiotic management. There is concern for new vesicular rash concerning for Shingles. PLAN: Left AKA: -Continue Bactrim DS for E.coli and Proteus and Flagyl 600mg Q8H, day 5 out of total 10 days -Continue daily dressing changes as directed, monitor wound for proper healing New vesicular rash, likely 2/2 friction: -As it is not confined to one dermatome, not found on the stomach, crosses the midline this is less likely Shingles. Looks possibly like a friction rash from moving her in the bed. -Stopped Valtrex for now. Will continue to monitor the rash VS, I&O, 24H, Fishbone Vital Signs/I&O Vital Signs Date Time Temp Pulse Resp B/P (MAP) Pulse Ox O2 Delivery O2 Flow Rate FiO2 08/12/20 08:43 90 130/78 08/12/20 08:42 18 95 Room Air 08/12/20 06:00 97.6 I&O- Last 24 Hours up to 6 AM 08/12/20 06:00 Intake Total 1170 ml Balance 1170 ml Laboratory Data 24H LABS Laboratory Tests 2 08/11/20 20:08: Bedside Glucose (Misc Panel) 203H 08/12/20 05:42: Nucleated Red Blood Cells % (auto) 0.0, Erythrocyte Sedimentation Rate 44H, Anion Gap 7L, Glomerular Filtration Rate > 60.0, Calcium Level 9.0, C-Reactive Protein, Quantitative 0.94H 08/12/20 11:44: Bedside Glucose (Misc Panel) 249H 08/12/20 16:47: Bedside Glucose (Misc Panel) 148H CBC/BMP Laboratory Tests 08/12/20 05:42 GME ATTESTATION GME ATTESTATION My faculty preceptor for this patient encounter was physically present during the encounter and was fully available. All aspects of the patient interview, examination, medical decision making process, and medical care plan development were reviewed and approved by the faculty preceptor. The faculty preceptor is aware and concurs with the plan as stated in the body of this note and will attest to such by his/her cosignature. JALYN SHIELDS MD August 12, 2020 17:46
[2020-08-12] MEDS: SERTRALINE HCL 25 MG TABLET PO SCH (20:56)
[2020-08-12] MEDS: ROSUVASTATIN 10 MG TAB (CRESTOR) PO SCH (20:57)
[2020-08-12] MEDS: rOPINIRole 0.25 MG TAB(REQUIP) PO SCH (20:57)
[2020-08-12] MEDS: SENNA 8.6 MG TAB (SENOKOT) PO SCH (20:57)
[2020-08-12] MEDS: LATANOPROST 0.005% OPHTH SOLN 2.5 ML OU SCH (20:58)
[2020-08-13] MEDS: metroNIDAZOLE (FLAGYL) 500MG TABLET PO SCH (05:08)
[2020-08-13 06:00] VITALS: BP 133/74
[2020-08-13 06:02] LABS: HEMATOCRIT 38.8 % (36.0-47.0); HEMOGLOBIN 11.5 g/dl (12.0-15.5); MEAN CORPUSCULAR HEMOGLOBIN 25.8 pg (27.0-33.0); MEAN CORPUSCULAR HGB CONC 29.6 g/dl (32.0-36.5); MEAN CORPUSCULAR VOLUME 87.2 fl (80.0-96.0); PLATELET COUNT, AUTOMATED 381 10^3/uL (150-450); RED BLOOD COUNT 4.45 10^6/uL (4.00-5.40); WHITE BLOOD COUNT 6.7 10^3/uL (4.0-10.0)
[2020-08-13 06:24] LABS: BLOOD UREA NITROGEN 19 MG/DL (7-18); CALCIUM LEVEL 9.2 MG/DL (8.8-10.2); CARBON DIOXIDE LEVEL 23 MEQ/L (21-32); CHLORIDE LEVEL 107 MEQ/L (98-107); GLOMERULAR FILTRATION RATE > 60.0 (>45); GLUCOSE, FASTING 174 MG/DL (70-100); POTASSIUM SERUM 4.6 MEQ/L (3.5-5.1); SODIUM LEVEL 138 MEQ/L (136-145)
[2020-08-13] MEDS: HumaLOG INSULIN (NovoLOG) PER UNIT SC SCH ×2 (08:58→13:15)
[2020-08-13] MEDS: DOCUSATE SODIUM 100MG CAPSULE PO SCH (08:59)
[2020-08-13] MEDS: allopurinoL 100 MG TAB PO SCH (08:59)
[2020-08-13] MEDS: BACTRIM 160MG/800MG DS TAB PO SCH (08:59)
[2020-08-13] MEDS: RIVAROXABAN 20 MG TAB (XARELTO) PO SCH (08:59)
[2020-08-13] MEDS: GABAPENTIN 100 MG CAP PO SCH (08:59)
[2020-08-13] MEDS: ASPIRIN 81 MG CHEW TABLET PO SCH (08:59)
[2020-08-13] MEDS: OMEPRAZOLE 20 MG CAP PO SCH (08:59)
[2020-08-13] MEDS: LACTOBACILLUS ACIDOPHILUS CAP (BACID) PO SCH ×2 (08:59→13:13)
[2020-08-13] MEDS: VITAMIN D 1,000 INTERNATIONAL UNITS TABLET PO SCH (09:00)
[2020-08-13] MEDS: traMADol 50 MG TAB PO SCH (09:00)
[2020-08-13] MEDS: OMEGA-3 1000MG CAPSULE PO SCH (09:00)
[2020-08-13] MEDS: MICONAZOLE 2 % POWDER (DESENEX) TOP SCH (09:01)
[2020-08-13] MEDS: LEVEMIR (INSULIN DETEMIR) 1 UNITS/0.01ML SC SCH (09:02)
[2020-08-13 09:05] VITALS: BP 143/51
[2020-08-13] MEDS: METOPROLOL SUCC (TopROL XL) 100MG *XL* TAB PO SCH (09:05)
[2020-08-13] MEDS ORDERED: GABA-1171 PO (11:29)
--- NOTE | 2020-08-13 11:52 | DSES ---
DISCHARGE SUMMARY DATE OF ADMISSION: 07/18/2020 DATE OF DISCHARGE: 08/13/2020 PRINCIPAL DIAGNOSES: 1. Polymicrobial left above-knee postoperative infection, status post incisional debridement, left above-knee amputation stump, 07/19/2020 and 07/30/2020. 2. Herpes zoster, back. 3. Peripheral arterial disease, status post left above-knee amputation. 4. Hyperkalemia. 5. Hypertension. 6. Hyperlipidemia. 7. Coronary artery disease. 8. Gout. 9. Gastroesophageal reflux disease. 10. Glaucoma. 11. Depression. 12. Intertrigo candidiasis with history of stroke in 2006. 13. Type 2 diabetes mellitus, on chronic anticoagulant therapy. HISTORY: Patient is being discharged today. I did not render any of her care during the hospitalization. Called upon to do her discharge orders. She had a long, complicated hospitalization with prolonged antibiotic therapy, polymicrobial bacteria. She had had a left above-knee amputation (AKA) on July 18 complicated by dehiscence of the wound, admitted for further treatment of this. SIGNIFICANT LABORATORIES: Done today, her white count is 6.7, hemoglobin 11.5, platelets 381. Sodium 138, potassium 4.5, BUN 19, creatinine 0.8, glucose 174. COVID test was negative on July 29 and August 13. Methicillin-resistant Staphylococcus aureus (MRSA) screen was negative. Recent blood sugars have been below 200. DISPOSITION: She was discharged today to the [facility] on gabapentin 100 mg twice a day, Tylenol as needed, allopurinol 100 mg daily, amlodipine 5 mg daily, aspirin 81 mg daily, bowel care, vitamin D 1000 units daily, furosemide 40 mg daily, detemir insulin 20 units daily, Bacid, lisinopril 10 mg daily, milk of magnesia, Toprol-XL 100 mg daily, multivitamin, omeprazole 20 mg daily, Xarelto 20 mg daily, Requip 0.5 mg every night, Crestor 20 mg every night, senna laxative as needed, Zoloft 75 mg daily, Fleet's enema as needed, tramadol 50 mg twice a day. Activity is as tolerated. No added salt, consistent-carbohydrate diet.
[2020-08-13] MEDS: FERROUS SULFATE 325MG TAB PO SCH (13:13)
== END 2020-08-13 14:11 | DRG 464 ==
LOC: EDBD 14:19 → M ED 14:19 → M ED INP 17:27 → ENRESERV 18:44 → M MSPAV 20:47
PROVIDERS: ADMIT Internal Medicine; ATTEND Family Medicine
PROC: 0JBM0ZZ Excision of Left Upper Leg Subcutaneous Tissue and Fascia, Open Approach (ICD-10-PCS; principal; 2020-07-19 10:00)
PROC: 0JBM0ZZ Excision of Left Upper Leg Subcutaneous Tissue and Fascia, Open Approach (ICD-10-PCS; 2020-07-30)
DX: T87.44 Infection of amputation stump, left lower extremity (principal); I69.351 Hemiplegia and hemiparesis following cerebral infarction affecting right dominant side; I48.20 Chronic atrial fibrillation, unspecified; Y83.5 Amputation of limb(s) as the cause of abnormal reaction of the patient, or of later complication, without mention of misadventure at the time of the procedure; I12.9 Hypertensive chronic kidney disease with stage 1 through stage 4 chronic kidney disease, or unspecified chronic kidney disease; E78.00 Pure hypercholesterolemia, unspecified; F41.9 Anxiety disorder, unspecified; F32.9 Major depressive disorder, single episode, unspecified; I25.10 Atherosclerotic heart disease of native coronary artery without angina pectoris; I69.322 Dysarthria following cerebral infarction; N18.2 Chronic kidney disease, stage 2 (mild); Z66 Do not resuscitate; E11.51 Type 2 diabetes mellitus with diabetic peripheral angiopathy without gangrene; K21.9 Gastro-esophageal reflux disease without esophagitis; E66.9 Obesity, unspecified; H40.9 Unspecified glaucoma; M10.9 Gout, unspecified; E11.22 Type 2 diabetes mellitus with diabetic chronic kidney disease; L30.4 Erythema intertrigo; T87.81 Dehiscence of amputation stump; R00.0 Tachycardia, unspecified; I69.320 Aphasia following cerebral infarction; B96.20 Unspecified Escherichia coli [E. coli] as the cause of diseases classified elsewhere; B95.61 Methicillin susceptible Staphylococcus aureus infection as the cause of diseases classified elsewhere; B96.89 Other specified bacterial agents as the cause of diseases classified elsewhere; B02.9 Zoster without complications; B96.4 Proteus (mirabilis) (morganii) as the cause of diseases classified elsewhere; Z89.611 Acquired absence of right leg above knee; Z87.891 Personal history of nicotine dependence; Z20.822 Contact with and (suspected) exposure to COVID-19; Z79.01 Long term (current) use of anticoagulants; Z79.82 Long term (current) use of aspirin; Z79.4 Long term (current) use of insulin; Z88.0 Allergy status to penicillin; Z79.891 Long term (current) use of opiate analgesic; Z88.1 Allergy status to other antibiotic agents; Z79.899 Other long term (current) drug therapy; Z68.37 Body mass index [BMI] 37.0-37.9, adult

== ENCOUNTER → 2020-08-30 | Outpatient (REF) | payer MEDICARE, MEDICAID ==
[~2020-08-30] MED LIST changes: +ACET-897 PO; +BACITAB PO; +CLIN-30 PO; +GABA-1171 PO; +JUVEPOW4 PO
[2020-08-30 19:25] LABS: HEMATOCRIT 37.4 % (36.0-47.0); HEMOGLOBIN 11.4 g/dl (12.0-15.5); MEAN CORPUSCULAR HGB CONC 30.5 g/dl (32.0-36.5); MEAN CORPUSCULAR VOLUME 88.6 fl (80.0-96.0); PLATELET COUNT, AUTOMATED 311 10^3/uL (150-450); RED BLOOD COUNT 4.22 10^6/uL (4.00-5.40); WHITE BLOOD COUNT 7.7 10^3/uL (4.0-10.0)
[2020-08-30 19:46] LABS: BLOOD UREA NITROGEN 21 MG/DL (7-18); C REACTIVE PROTEIN QUANTITATIV 1.75 MG/DL (0.00-0.30); CARBON DIOXIDE LEVEL 27 MEQ/L (21-32); CHLORIDE LEVEL 103 MEQ/L (98-107); CREATININE FOR GFR 0.65 MG/DL (0.55-1.30); GLOMERULAR FILTRATION RATE > 60.0 (>45); GLUCOSE, FASTING 220 MG/DL (70-100); POTASSIUM SERUM 4.7 MEQ/L (3.5-5.1); SODIUM LEVEL 138 MEQ/L (136-145)
[2020-08-30 20:10] LABS: ERYTHROCYTE SEDIMENTATION RATE 52 mm/hr (0-30)
== END ==
PROVIDERS: ATTEND Internal Medicine
DX: N28.9 Disorder of kidney and ureter, unspecified (principal)

== ENCOUNTER → 2020-09-06 | Outpatient (REF) ==
[2020-09-06 09:59] LABS: HEMATOCRIT 40.7 % (36.0-47.0); HEMOGLOBIN 12.5 g/dl (12.0-15.5); MEAN CORPUSCULAR HEMOGLOBIN 27.1 pg (27.0-33.0); MEAN CORPUSCULAR HGB CONC 30.7 g/dl (32.0-36.5); MEAN CORPUSCULAR VOLUME 88.3 fl (80.0-96.0); PLATELET COUNT, AUTOMATED 396 10^3/uL (150-450); RED BLOOD COUNT 4.61 10^6/uL (4.00-5.40); WHITE BLOOD COUNT 7.9 10^3/uL (4.0-10.0)
[2020-09-06 10:24] LABS: BLOOD UREA NITROGEN 16 MG/DL (7-18); CALCIUM LEVEL 9.3 MG/DL (8.8-10.2); CARBON DIOXIDE LEVEL 26 MEQ/L (21-32); CHLORIDE LEVEL 104 MEQ/L (98-107); CREATININE FOR GFR 0.68 MG/DL (0.55-1.30); GLOMERULAR FILTRATION RATE > 60.0 (>45); GLUCOSE, FASTING 197 MG/DL (70-100); POTASSIUM SERUM 4.6 MEQ/L (3.5-5.1); SODIUM LEVEL 137 MEQ/L (136-145)
[2020-09-06 10:43] LABS: ERYTHROCYTE SEDIMENTATION RATE 50 mm/hr (0-30)
== END ==
PROVIDERS: ATTEND Internal Medicine
DX: N28.9 Disorder of kidney and ureter, unspecified (principal)

== ENCOUNTER → 2020-09-09 | Outpatient (REF) | payer MEDICARE, MEDICAID ==
[2020-09-09 16:10] LABS: HEMATOCRIT 36.4 % (36.0-47.0); HEMOGLOBIN 11.2 g/dl (12.0-15.5); MEAN CORPUSCULAR HGB CONC 30.8 g/dl (32.0-36.5); MEAN CORPUSCULAR VOLUME 87.7 fl (80.0-96.0); PLATELET COUNT, AUTOMATED 372 10^3/uL (150-450); RED BLOOD COUNT 4.15 10^6/uL (4.00-5.40); WHITE BLOOD COUNT 7.5 10^3/uL (4.0-10.0)
[2020-09-09 16:28] LABS: BLOOD UREA NITROGEN 22 MG/DL (7-18); C REACTIVE PROTEIN QUANTITATIV 4.25 MG/DL (0.00-0.30); CALCIUM LEVEL 9.2 MG/DL (8.8-10.2); CARBON DIOXIDE LEVEL 27 MEQ/L (21-32); CHLORIDE LEVEL 104 MEQ/L (98-107); CREATININE FOR GFR 0.71 MG/DL (0.55-1.30); GLOMERULAR FILTRATION RATE > 60.0 (>45); GLUCOSE, FASTING 191 MG/DL (70-100); POTASSIUM SERUM 4.5 MEQ/L (3.5-5.1); SODIUM LEVEL 137 MEQ/L (136-145)
[2020-09-09 16:43] LABS: ERYTHROCYTE SEDIMENTATION RATE 66 mm/hr (0-30)
== END ==
PROVIDERS: ATTEND Internal Medicine
DX: B99.9 Unspecified infectious disease (principal)

== ENCOUNTER → 2020-09-12 | Outpatient (REF) | payer MEDICARE, MEDICAID ==
[2020-09-12 10:05] LABS: HEMATOCRIT 38.8 % (36.0-47.0); HEMOGLOBIN 11.9 g/dl (12.0-15.5); MEAN CORPUSCULAR HGB CONC 30.7 g/dl (32.0-36.5); MEAN CORPUSCULAR VOLUME 88.2 fl (80.0-96.0); PLATELET COUNT, AUTOMATED 357 10^3/uL (150-450); WHITE BLOOD COUNT 6.9 10^3/uL (4.0-10.0)
[2020-09-12 10:31] LABS: BLOOD UREA NITROGEN 17 MG/DL (7-18); CALCIUM LEVEL 9.3 MG/DL (8.8-10.2); CARBON DIOXIDE LEVEL 26 MEQ/L (21-32); CHLORIDE LEVEL 105 MEQ/L (98-107); CREATININE FOR GFR 0.61 MG/DL (0.55-1.30); GLOMERULAR FILTRATION RATE > 60.0 (>45); GLUCOSE, FASTING 184 MG/DL (70-100); POTASSIUM SERUM 4.5 MEQ/L (3.5-5.1); SODIUM LEVEL 140 MEQ/L (136-145)
[2020-09-12 10:36] LABS: ERYTHROCYTE SEDIMENTATION RATE 59 mm/hr (0-30)
== END ==
PROVIDERS: ATTEND Internal Medicine
DX: A49.02 Methicillin resistant Staphylococcus aureus infection, unspecified site (principal)

== ENCOUNTER → 2020-09-13 | Outpatient (CLI) | payer MEDICARE, MEDICAID ==
[~2020-09-13] MED LIST changes: +ISOVUE-370 76% 100ML VIAL As Ordered ONE
--- NOTE | 2020-09-13 14:02 | REP ---
INDICATION: RENAL MASS. COMPARISON: 07/30/2016 the latest prior TECHNIQUE: Before and after the intravenous administration of 100 cc Isovue 370. No oral bowel preparatory contrast was administered prior to the exam. FINDINGS: There is an unchanged 6 mm size nodule seen in the left lung base. There are no pleural or pericardial effusions. The pre contrast enhanced portion exam shows hepatic and splenic densities to be within normal limits. There are no cholelith or left nephroliths. Multiple calcifications are seen within and along the periphery of a dumbbell-shaped 5.4 x 3.5 cm sized mass arising from the inferior pole of the right kidney posteriorly. This has increased in size compared to the prior exam when it measured approximately 1.7 x 2 x 1.4 cm. The contrast-enhanced portion examination shows the aforementioned right renal mass to enhance heterogeneously. The liver, gallbladder, spleen, pancreas, adrenal glands, and left kidney are again seen to be within normal limits. The abdominal aorta and para-regions are within normal limits and essentially unchanged. There is no significant change in appearance of the bowel loops or the mesenteries. There is no evidence of free fluid or free air. There are changes in the left groin consistent with the patient's known femoropopliteal graft. Bone window technique throughout the exam shows no significant change in appearance of the imaged osseous structures. IMPRESSION: 1. 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 2. Other findings as described above. <Electronically signed by Yeison French > 09/13/20 [id number]
== END ==
LOC: M RAD 12:46
PROVIDERS: ATTEND Specialist
DX: N28.89 Other specified disorders of kidney and ureter (principal)
CPT/HCPCS: 74178; Q9967

== ENCOUNTER → 2020-09-13 | Outpatient (REF) | payer MEDICARE, MEDICAID ==
[~2020-09-13] MED LIST changes: -ISOVUE-370 76% 100ML VIAL As Ordered ONE
== END ==
PROVIDERS: ATTEND Internal Medicine
DX: Z53.8 Procedure and treatment not carried out for other reasons (principal)

== ENCOUNTER → 2020-09-17 | Outpatient (REF) | payer MEDICARE, MEDICAID ==
[2020-09-17 08:54] LABS: HEMATOCRIT 37.7 % (36.0-47.0); HEMOGLOBIN 11.7 g/dl (12.0-15.5); MEAN CORPUSCULAR HEMOGLOBIN 27.5 pg (27.0-33.0); MEAN CORPUSCULAR VOLUME 88.5 fl (80.0-96.0); PLATELET COUNT, AUTOMATED 304 10^3/uL (150-450); RED BLOOD COUNT 4.26 10^6/uL (4.00-5.40); WHITE BLOOD COUNT 6.3 10^3/uL (4.0-10.0)
[2020-09-17 09:23] LABS: ERYTHROCYTE SEDIMENTATION RATE 44 mm/hr (0-30)
[2020-09-17 09:33] LABS: BLOOD UREA NITROGEN 19 MG/DL (7-18); CALCIUM LEVEL 9.4 MG/DL (8.8-10.2); CARBON DIOXIDE LEVEL 27 MEQ/L (21-32); CHLORIDE LEVEL 106 MEQ/L (98-107); CREATININE FOR GFR 0.62 MG/DL (0.55-1.30); GLOMERULAR FILTRATION RATE > 60.0 (>45); GLUCOSE, FASTING 177 MG/DL (70-100); POTASSIUM SERUM 4.1 MEQ/L (3.5-5.1); SODIUM LEVEL 140 MEQ/L (136-145)
== END ==
PROVIDERS: ATTEND Internal Medicine
DX: A49.02 Methicillin resistant Staphylococcus aureus infection, unspecified site (principal)

== ENCOUNTER → 2020-09-20 | Outpatient (REF) | payer MEDICARE, MEDICAID ==
[2020-09-20 10:27] LABS: HEMATOCRIT 35.8 % (36.0-47.0); MEAN CORPUSCULAR HEMOGLOBIN 27.2 pg (27.0-33.0); MEAN CORPUSCULAR HGB CONC 30.7 g/dl (32.0-36.5); MEAN CORPUSCULAR VOLUME 88.4 fl (80.0-96.0); PLATELET COUNT, AUTOMATED 279 10^3/uL (150-450); RED BLOOD COUNT 4.05 10^6/uL (4.00-5.40); WHITE BLOOD COUNT 7.9 10^3/uL (4.0-10.0)
[2020-09-20 10:46] LABS: BLOOD UREA NITROGEN 19 MG/DL (7-18); C REACTIVE PROTEIN QUANTITATIV 1.44 MG/DL (0.00-0.30); CALCIUM LEVEL 8.8 MG/DL (8.8-10.2); CARBON DIOXIDE LEVEL 23 MEQ/L (21-32); CHLORIDE LEVEL 106 MEQ/L (98-107); CK-MB VALUE MASS < 1.0 NG/ML (<3.6); CPK CREATINE PHOSPHOKINASE 32 U/L (26-192); CREATININE FOR GFR 0.72 MG/DL (0.55-1.30); GLOMERULAR FILTRATION RATE > 60.0 (>45); GLUCOSE, FASTING 270 MG/DL (70-100); MB/CK RELATIVE INDEX 3.12 (< OR =4); POTASSIUM SERUM 4.4 MEQ/L (3.5-5.1); SODIUM LEVEL 140 MEQ/L (136-145); TROPONIN I < 0.02 NG/ML (< 0.10)
[2020-09-20 11:11] LABS: ERYTHROCYTE SEDIMENTATION RATE 43 mm/hr (0-30)
== END ==
PROVIDERS: ATTEND Internal Medicine
DX: A49.02 Methicillin resistant Staphylococcus aureus infection, unspecified site (principal)
CPT/HCPCS: 36415; 80048; 82550; 82553; 84484; 85027; 85652; 86140; G0463

== ENCOUNTER → 2020-09-20 | Outpatient (REF) | payer MEDICARE, MEDICAID | PROVIDERS: ATTEND Internal Medicine | DX: N28.9 Disorder of kidney and ureter, unspecified (principal) ==

== ENCOUNTER → 2020-09-27 | Outpatient (REF) | payer MEDICARE, MEDICAID ==
[2020-09-27 15:32] LABS: HEMATOCRIT 38.7 % (36.0-47.0); MEAN CORPUSCULAR HEMOGLOBIN 27.6 pg (27.0-33.0); MEAN CORPUSCULAR VOLUME 89.2 fl (80.0-96.0); PLATELET COUNT, AUTOMATED 331 10^3/uL (150-450); RED BLOOD COUNT 4.34 10^6/uL (4.00-5.40); WHITE BLOOD COUNT 7.5 10^3/uL (4.0-10.0)
[2020-09-27 15:50] LABS: ERYTHROCYTE SEDIMENTATION RATE 46 mm/hr (0-30)
[2020-09-27 15:58] LABS: BLOOD UREA NITROGEN 20 MG/DL (7-18); C REACTIVE PROTEIN QUANTITATIV 1.75 MG/DL (0.00-0.30); CALCIUM LEVEL 9.3 MG/DL (8.8-10.2); CARBON DIOXIDE LEVEL 27 MEQ/L (21-32); CHLORIDE LEVEL 104 MEQ/L (98-107); CREATININE FOR GFR 0.55 MG/DL (0.55-1.30); GLOMERULAR FILTRATION RATE > 60.0 (>45); GLUCOSE, FASTING 163 MG/DL (70-100); POTASSIUM SERUM 4.8 MEQ/L (3.5-5.1); SODIUM LEVEL 138 MEQ/L (136-145)
== END ==
PROVIDERS: ATTEND Internal Medicine
DX: N28.9 Disorder of kidney and ureter, unspecified (principal)

== ENCOUNTER → 2020-10-28 | Outpatient (REF) | payer MEDICARE, MEDICAID ==
[2020-10-28 12:34] LABS: HEMATOCRIT 38.4 % (36.0-47.0); HEMOGLOBIN 11.9 g/dl (12.0-15.5); MEAN CORPUSCULAR HEMOGLOBIN 28.1 pg (27.0-33.0); MEAN CORPUSCULAR VOLUME 90.6 fl (80.0-96.0); PLATELET COUNT, AUTOMATED 298 10^3/uL (150-450); RED BLOOD COUNT 4.24 10^6/uL (4.00-5.40); WHITE BLOOD COUNT 7.3 10^3/uL (4.0-10.0)
[2020-10-28 13:15] LABS: BLOOD UREA NITROGEN 20 MG/DL (7-18); CALCIUM LEVEL 8.7 MG/DL (8.8-10.2); CARBON DIOXIDE LEVEL 25 MEQ/L (21-32); CHLORIDE LEVEL 104 MEQ/L (98-107); GLOMERULAR FILTRATION RATE > 60.0 (>45); GLUCOSE, FASTING 266 MG/DL (70-100); POTASSIUM SERUM 4.4 MEQ/L (3.5-5.1); SODIUM LEVEL 138 MEQ/L (136-145)
== END ==
PROVIDERS: ATTEND Internal Medicine
DX: N28.89 Other specified disorders of kidney and ureter (principal)

== ENCOUNTER → 2020-11-06 | Outpatient (CLI) | payer MEDICARE, MEDICAID ==
--- NOTE | 2020-11-06 11:16 | REP ---
INDICATION: PREOP- CT HOLDING AREA. COMPARISON: Multiple the latest 07/18/2020 TECHNIQUE: Portable two views FINDINGS: The technique utilized in obtaining the radiograph has magnified the cardiac silhouette and attenuated the interstitial markings. The lateral view is nondiagnostic. The patient's arm is obscuring lung field. There is cardiomegaly accentuated by technique status quo. There is no change in the lung diez. No acute patchy parenchymal opacities or pleural effusions have developed. There is no change in the osseous structures. IMPRESSION: Cardiomegaly status quo. No evidence of acute cardiopulmonary disease. The lateral view shows a soft tissue protuberance posteriorly likely a conglomeration of adipose tissue due to positioning. Correlate clinically <Electronically signed by Yeison French > 11/06/20 [id number]
== END ==
LOC: M RAD 10:21
PROVIDERS: ATTEND Internal Medicine
DX: Z01.818 Encounter for other preprocedural examination (principal)

== ENCOUNTER 2020-11-12 07:30 | Inpatient (IN) | payer MEDICARE, MEDICAID ==
[~2020-11-12] VITALS: Ht 149.9 cm; Wt 81.6 kg
[2020-11-21] VITALS (7 sets, daily range): BP systolic 138–192; BP diastolic 60–108; O2SAT 93
[2020-11-21] MEDS ORDERED: BUPIVACAINE HCL 0.25% 30ML VIAL As Ordered ONE (07:11)
[2020-11-21] MEDS ORDERED: LIDOCAINE 1% SDV 30ML VIAL As Ordered ONE (07:11)
[2020-11-21] MEDS ORDERED: LR 1,000 ML IV ONE (07:20)
[2020-11-21] MEDS ORDERED: ceFAZolin SOD 2 GM in IV 1 EA IV ONE (07:30)
[2020-11-21] MEDS ORDERED: fentaNYL 250 MCG/5 ML INJECTION (J3010) As Ordered ONE (08:15)
[2020-11-21] MEDS ORDERED: propofoL 200 MG/20 ML VIAL As Ordered ONE (08:15)
[2020-11-21] MEDS ORDERED: ROCURONIUM BROMIDE 50 MG/5 ML VIAL As Ordered ONE ×3 (08:15→10:36)
[2020-11-21] MEDS ORDERED: MIDAZOLAM INJ 2MG/2ML VIAL (J2250 PER 1MG) As Ordered ONE (08:15)
[2020-11-21] MEDS ORDERED: ETOMIDATE INJ 20MG/10ML VIAL As Ordered ONE (08:15)
[2020-11-21] MEDS ORDERED: LIDOCAINE 2% 100MG/5ML SDV (FOR ANES.) As Ordered ONE (08:15)
[2020-11-21] MEDS ORDERED: ONDANSETRON 4MG/2ML VIAL As Ordered ONE (08:15)
[2020-11-21] MEDS ORDERED: dexameTHASONE 4 MG/ML 1ML VIAL (J1100 PER 1MG) As Ordered ONE (08:15)
[2020-11-21] MEDS ORDERED: PHENYLephrine 500MCG 5ML (100MCG/ML) SYRINGE As Ordered ONE (08:22)
[2020-11-21] MEDS ORDERED: METOPROLOL 5 MG/5 ML VIAL As Ordered ONE (09:06)
[2020-11-21] MEDS ORDERED: HYDROmorphone HCL 2 MG/ML 1ML VIAL (J1170) As Ordered ONE (09:30)
[2020-11-21] MEDS ORDERED: ACETAMINOPHEN 1000MG 100ML IV BTL (OFIRMEV) (J0131 PER 10MG) As Ordered ONE (09:33)
[2020-11-21] MEDS ORDERED: SUGAMMADEX SODIUM 500 MG/5 ML VIAL (BRIDION) As Ordered ONE (10:37)
[2020-11-21] MEDS ORDERED: ACETAMINOPHEN TAB 650MG DOSE (2X325MG) PO PRN (12:10)
[2020-11-21] MEDS ORDERED: PERCOCET 5MG/325MG TAB PO PRN (12:10)
[2020-11-21] MEDS ORDERED: NS 1,000 ML IV SCH (12:10)
[2020-11-21] MEDS ORDERED: ONDANSETRON 4MG/2ML VIAL IV PRN (12:45)
[2020-11-21] MEDS ORDERED: LR 1,000 ML IV SCH (12:45)
[2020-11-21] MEDS ORDERED: oxyCODONE 5MG TAB PO PRN (12:45)
[2020-11-21] MEDS ORDERED: METOCLOPRAMIDE INJ 10MG/2ML VIAL (J2765 PER 1) IV PRN (12:45)
[2020-11-21] MEDS ORDERED: HYDROMORPHONE HCL 0.5 MG/ 0.5 ML SYRINGE (J1170 PER 1) IV PRN (12:45)
[2020-11-21] MEDS ORDERED: BISACODYL 10 MG SUPP PR PRN (13:20)
[2020-11-21] MEDS ORDERED: MOM 30ML SUSPENSION UDC PO PRN (13:20)
[2020-11-21] MEDS ORDERED: FLEET ENEMA PR PRN (13:20)
[2020-11-21] MEDS ORDERED: GLUCOSE 4GM CHEW TABLET PO PRN (13:20)
[2020-11-21] MEDS ORDERED: GLUCAGON INJ 1MG VIAL SC PRN (13:20)
[2020-11-21] MEDS ORDERED: DEXTROSE 50% 50 ML SYRINGE IV PRN (13:20)
--- NOTE | 2020-11-21 13:22 | ROOPDOC ---
[facility] Report Of Operation Report of Operation DATE OF PROCEDURE: 11/21/20 REPROCEDURE DIAGNOSES: Right Renal Neoplasm, Gross Hematuria. POSTPROCEDURE DIAGNOSES: Right Renal Neoplasm, Gross Hematuria. PROCEDURE: Right Robotic-assisted Laparoscopic Radical Nephrectomy (adrenal- sparing), Cystoscopy. SURGEON: Porsche Samuel MD PORTER BAGGAGE: Annie Arreola NP ANESTHESIA: General OPERATIVE INDICATIONS: This is a 70 year old female found to have a 5cm enhancing mass growing an atrophic right kidney. She is brought to the operating room for a radical nephrectomy for treatment of this likely malignant lesion. She has also had gross hematuria previously and a cystoscopy was recommended as part of her evaluation. DESCRIPTION OF PROCEDURE: The patient was brought to the operating room and general anesthesia was induced. Prophylactic antibiotics were infused. She was prepped and draped in the supine position and then flexible cystoscopy was performed. It was negative for bladder tumors. There were no bladder stones. There was debris at the base of the bladder but no other abnormalities were seen. Bilateral ureteral orifices were orthotopic. The scope was then removed and a Fernandes catheter was inserted into the bladder under sterile conditions. The patient was then placed in the left lateral decubitus position. All pressure points were appropriately padded and an axillary roll was placed. He was secured to the table with tape. The patient was then prepped and draped in the usual sterile fashion. The initial incision was for an 8mm port in line with the 11th rib along the lateral rectus margin. A Veress needle was then utilized to achieve the pneumoperitoneum. An 8mm port was then placed in through this incision and through which the camera was inserted. There were no injuries from Veress needle placement or initial trocar placement. The remaining ports were then placed under vision. The right hand robotic port was placed along the costal margin. Another 5 mm port was placed just inferior to the xyphoid for access for a liver retractor. A 12mm robotic port was placed just inferior to the camera port, also on the lateral rectus margin. The left hand robotic port was placed between the anterior-superior iliac spine and the umbilicus. A 15mm early childhood teacher assistant port was placed inferior and medial to the camera port. The robot was then docked. We began by lifting up the liver with a laparoscopic locking Allis clamp. Next the right colon was dissected off of Gerota's fascia. We then Kocherized the duodenum. At this point the inferior vena cava (IVC) was identified. A plane was made onto the lateral aspect of the IVC. The patient had 2 right renal veins and one right renal artery that branched early. The 2 branches of the artery were carefully dissected and then ligated with 3 Weck clips. Both branches were then transected, leaving 2 clips on the stay side. The smaller right renal vein was ligated and transected in a similar fashion with Weck clips. Next, a robotic 45mm stapler was utilized to ligate and transect the larger right renal vein. Once the hilum was taken, a plane onto the upper pole of the kidney was created and the right adrenal gland was mobilized off of the kidney. The kidney was then carefully dissected on all sides until it was only connected by the right ureter. The ureter was then ligated with Weck clips and completed transected in between. Once the kidney was free, it was placed in a large Endocatch bag for future retrieval. We then checked for hemostasis and it appeared excellent. Tito hemostatic agent was then placed in the nephrectomy bed. The robot was undocked. We then used a Tejas fascial closure device to place a #0 Vicryl free tie through the fascia of the 15 mm camera port site. We then extended the 12 mm port site and used it as the extraction incision. We then dissected down to the fascia. The fascia was then extended using electrocautery. The muscle was bluntly spread. The specimen was then extracted through this incision. It was handed off the table to send for pathology. We then closed the fascia of the extraction incision using a running #0 Vicryl suture. At this point, the abdomen was reinsufflated and we looked back in with the camera and there was no bleeding underneath the extraction site. No abdominal contents were caught within the closure either. We then removed all the ports under direct vision and there was no bleeding from any of the port sites. At this point, the previously placed #0 Vicryl free ties were tied down and all the incisions were thoroughly irrigated. The subcutaneous tissue of the extraction incision was then reapproximated using interrupted #3-0 Vicryl suture. We then closed the skin of each site using a running #4-0 subcuticular Monocryl stitch. Local anesthetic was then applied to each incision and Dermabond was then applied and this marked the conclusion of the procedure. The patient was then taken out of the left lateral decubitus position, awakened from anesthesia and transported to the recovery room in stable condition. ESTIMATED BLOOD LOSS: 50 mL INTRAOPERATIVE COMPLICATIONS: None SPECIMENS: Right kidney. PLAN: The patient will be admitted to the hospital postoperatively and she will be discharged home once her renal function is stable, her pain is controlled and she is tolerating a regular diet. PORSCHE SAMUEL MD Nov 21, 2020 07:57
--- NOTE | 2020-11-21 14:03 | HPEPDOC ---
[facility] Medical History & Physical Date of Admission Nov 21, 2020 Date of Service: Nov 21, 2020 Primary Care Physician: BJ MELISSA DO Other Provider Kian Calles MD, Urology Attending Physician: NATALI CARRILLO DO History and Physical CHIEF COMPLAINT: Postop radical right nephrectomy HISTORY OF PRESENT ILLNESS: Patient is a 70-year-old female who is going to be admitted into the hospital after undergoing a robotic assisted right radical nephrectomy secondary to a mass. I spoke with Dr. Calles of urology who stated the patient had an atrophic right kidney that mass in it which required the procedure to be performed. Patient is seen in PACU and does not have any complaints at this time. Patient does have an extensive history of peripheral vascular disease with bilateral qgafm-aaz-rtlb amputations. Dr. Calles of urology has requested the hospitalist admit the patient to help manage the patient's multiple medical comorbidities. Patient will be admitted to the hospital. PAST MEDICAL HISTORY: 1. Prior CVA with right upper extremity hemiparesis. 2. Chronic atrial fibrillation on chronic anticoagulant therapy. 3. Peripheral artery disease with right AKA, status post left femoropopliteal bypass, left epcta-cei-sxim amputation. 4. Hypertension 5. Diabetes with neuropathy 6. Chronic nonhealing venous stasis ulcer in the left urrutia in the past prior to amputation. 7. Depression 8. Hyperlipidemia 9. GERD 10. Chronic diastolic dysfunction seen on echo with no evidence of heart failure 11. Gout 12. Restless leg syndrome 13. History of coronary artery disease 14. Chronic constipation 15. Polymicrobial left bqcco-rzq-wotg postoperative infection status post incisional debridement amputation stump on 07/19/2020 and 07/30/2020 PAST SURGICAL HISTORY: 1. Zenopatch angioplasty of the left femoral to above-knee popliteal artery bypass with ringed PTFE. 2. Bilateral lower extremity angioplasties. 3. Right femoral-tibial artery bypass 08/2016. 4. Right varicose vein stripping 5. Right AKA 6. Left carotid endarterectomy 7. Partial nephrectomy 8. Left above-knee amputation 06/28/2020 SOCIAL HISTORY: Patient currently lives on [facility]. Patient does have permanent placement. Patient is a former smoker does not use alcohol or drugs FAMILY HISTORY: According to chart review patient's father due to heart attack and mother is due to unknown causes ALLERGIES: Please see below. REVIEW OF SYSTEMS: General: Patient denies fevers HEENT: Patient denies headaches Cardiovascular: Patient denies chest pain Respiratory: Patient denies shortness of breath, cough GI: Patient denies abdominal pain, nausea, vomiting, diarrhea : Patient denies increased frequency or pain with urination Extremities: Patient denies pain in her extremities Neurological: Patient denies numbness or tingling in legs Skin: Patient denies any new rashes or lesions. Hematologic: Patient denies any easy bruising. Lymphatic: Patient denies any lumps lumps or bumps in neck, axilla, or groin HOME MEDICATIONS: Please see below. PHYSICAL EXAMINATION: VITAL SIGNS: Temperature 97.4, pulse 86, respiratory rate 18, blood pressure 181/86, pulse oximetry 95% on 2 L via nasal cannula General: Alert and oriented female who was found in PACU with nasal cannula oxygen in place. Patient was just waking up from her surgery so she was quite groggy but would wake up and answer questions appropriately and then go back to sleep. Patient did not appear to be in any acute distress. HEENT: Normocephalic, atraumatic, moist mucous membranes. Neck: No lymphadenopathy or thyromegaly Cardiac: Regular rate and rhythm, no murmurs, normal S1, normal S2 Pulm: Clear to auscultation bilaterally. No wheezes, rhonchi, rales Abd: Nondistended, nontender to palpation, normal bowel sounds, 3 incisions found on the right side of the abdomen that were Dermabond did Ext: Bilateral AKA amputations with a large OPTi foam dressing that was not soiled on the left stump Neuro: Patient has right-sided upper extremity residual weakness but is able to move her other extremities equally Skin: Skin of the head, neck, abdomen, upper and lower extremities was examined not show any evidence of rashes or wounds other than what is been described above LABORATORY DATA: See below. IMAGING: No imaging has been performed at this time. MICROBIOLOGY: Please see below. ASSESSMENT: 70-year-old female who will be admitted in the hospital for further monitoring after a right radical nephrectomy. . PLAN: 1. Right renal mass. Dr. Calles of urology performed a robotic assisted laparoscopic right radical nephrectomy today and the patient will be admitted. Dr. Calles has been consulted to manage the postoperative aspects of the patient's care. Patient has a catheter in place that Dr. Calles will remove when the patient is ready. If the patient's pain is controlled, patient may be able to be discharged home tomorrow. 2. Hypertension. Patient's blood pressures have been elevated. Patient is on lisinopril which she did not take due to the operation. If the patient's blood pressure continues to remain elevated, patient can be given an extra dose of amlodipine today. Lisinopril can be restarted tomorrow. 3. Type 2 diabetes mellitus. Patient was placed on sliding scale coverage and will have her home basal insulin. Patient will be put on consistent carbohydrate diet at this time. 4. Peripheral vascular disease. Patient has bilateral jxmou-auk-ewct amputations. We will continue basal medications. 5. Chronic atrial fibrillation. Patient is on Xarelto at home but this was held 3 days prior to the surgery. In reviewing the patient's preoperative evaluation note, this is planned to be held 7 days after the procedure. Patient Xarelto can be held while she is hospitalized. 6. Prior CVA. Patient has right-sided upper extremity hemiparesis. Continue home medications. 7. Hyperlipidemia. Continue home medications. 8. Chronic constipation. Continue home medications. 9. Depression. Continue home medications. 10. DVT prophylaxis: Due to the recent procedure, no anticoagulation will be given. Patient has bilateral vmmoi-qhx-tqew amputations so teds and sequentials are unable to be given. Her Xarelto can be started 7 days after surgery CODE STATUS: DNR/DNI. Patient has MOLST form filled out that I was able to review in the chart. Disposition: Patient be admitted to the medical surgical floor for further monitoring and once pain is adequately controlled, renal function has stabilized, and patient is tolerating a diet patient can be discharged back to [facility]. If this is unable to happen tomorrow, this will most likely happen on 11/26/2020. Vital Signs Vital Signs Date Time Temp Pulse Resp B/P (MAP) Pulse Ox O2 Delivery O2 Flow Rate FiO2 11/21/20 13:25 97.4 86 18 181/86 (117) 95 Nasal Cannula 2.0 Laboratory Data Labs 24H Laboratory Tests 2 11/21/20 07:32: Bedside Glucose (Misc Panel) 198H Home Medications Scheduled Acetaminophen (Tylenol Extra Strength) 500 Mg Tablet, 1,000 MG PO TID Allopurinol (Allopurinol) 100 Mg Tablet, 100 MG PO DAILY Amlodipine Besylate (Amlodipine Besylate) 5 Mg Tablet, 5 MG PO DAILY Aspirin (Aspirin) 81 Mg Tab.chew, 81 MG PO DAILY Cholecalciferol (Vitamin D3) (Vitamin D3) 1,000 Unit Tablet, 1,000 UNITS PO DAILY Docusate Sodium (Colace) 100 Mg Capsule, 100 MG PO DAILY Furosemide (Furosemide) 40 Mg Tab, 40 MG PO DAILY Gabapentin (Gabapentin) 100 Mg Capsule, 100 MG PO BID Insulin Detemir (Levemir) 100 Unit/1 Ml Vial, 20 UNITS SC QAM L.acidoph/L.bulg/B.bif/S.therm (Bacid Caplet) 1 Each Tablet, 1 TAB PO TID Latanoprost (Xalatan) 0.005% 2.5ML Drops, 1 DROP OU QHS Lisinopril (Lisinopril) 10 Mg Tablet, 10 MG PO BID Metoprolol Succinate (Metoprolol Succinate) 100 Mg Tab.er.24h, 100 MG PO DAILY Miconazole Nitrate (Anti-Fungal Powder) 71 Gm Powder, 1 DOSE TOP BID APPLY TO ABDOMINAL FOLD Multivitamin (Multivitamin) 1 Each Tablet, 1 TAB PO DAILY Omeprazole (Omeprazole) 20 Mg Capsule.dr, 20 MG PO DAILY Rivaroxaban (Xarelto) 20 Mg Tablet, 20 MG PO DAILY Ropinirole HCl (Ropinirole HCl) 0.5 Mg Tablet, 0.5 MG PO QHS Rosuvastatin Calcium (Crestor) 20 Mg Tab, 20 MG PO QHS Senna (Senna Lax) 8.6 Mg Tablet, 8.6 MG PO QHS Sertraline Hcl (Zoloft) 25 Mg Tablet, 75 MG PO QHS Tramadol HCl (Tramadol HCl) 50 Mg Tablet, 50 MG PO BID Scheduled PRN Bisacodyl (Bisacodyl) 10 Mg Supp.rect, 10 MG [place] DAILY PRN for CONSTIPATION Magnesium Hydroxide (Milk of Magnesia) 400 Mg/5 Ml Oral.susp, 30 ML PO DAILY PRN for CONSTIPATION Sodium Phosphate,Wharton-Dibasic (Enema) 133 Ml Enema, 1 OSMANY [place] DAILY PRN for CONSTIPATION Allergies Coded Allergies: Penicillins (Verified Allergy, Intermediate, mouth swelling, 11/21/20) amoxicillin (Verified Allergy, Unknown, 11/21/20) cefazolin (Verified Allergy, Unknown, 11/21/20) ciprofloxacin (Verified Allergy, Unknown, 11/21/20) A-FIB/CHADSVASC A-FIB History Current/History of A-Fib/PAF?: Yes Current PO Anticoag Therapy: No Treatment Reason Anticoagulant not given: Recent/upcomin procedure NATALI CARRILLO DO Nov 21, 2020 14:03
[2020-11-21 14:17] LABS: HEMATOCRIT 38.5 % (36.0-47.0); HEMOGLOBIN 11.9 g/dl (12.0-15.5); MEAN CORPUSCULAR HEMOGLOBIN 28.1 pg (27.0-33.0); MEAN CORPUSCULAR HGB CONC 30.9 g/dl (32.0-36.5); PLATELET COUNT, AUTOMATED 293 10^3/uL (150-450); RED BLOOD COUNT 4.23 10^6/uL (4.00-5.40); WHITE BLOOD COUNT 13.7 10^3/uL (4.0-10.0)
[2020-11-21 14:53] LABS: CALCIUM LEVEL 8.7 MG/DL (8.8-10.2); CREATININE FOR GFR 1.21 MG/DL (0.55-1.30); GLOMERULAR FILTRATION RATE 47.1 (>45); POTASSIUM SERUM 6.1 MEQ/L (3.5-5.1)
[2020-11-21] MEDS ORDERED: fentaNYL 100 MCG/2 ML INJECTION (J3010) As Ordered ONE (15:16)
[2020-11-21] MEDS: fentaNYL 100 MCG/2 ML INJECTION (J3010) IV PRN ×4 (15:20→15:41)
[2020-11-21 18:17] LABS: CALCIUM LEVEL 8.8 MG/DL (8.8-10.2); CREATININE FOR GFR 1.31 MG/DL (0.55-1.30); POTASSIUM SERUM 5.4 MEQ/L (3.5-5.1)
[2020-11-21] MEDS: ASPIRIN 81 MG CHEW TABLET PO SCH (18:45)
[2020-11-21] MEDS: VITAMIN D 1,000 INTERNATIONAL UNITS TABLET PO SCH (18:45)
[2020-11-21] MEDS: FUROSEMIDE 40 MG TAB PO SCH (18:46)
[2020-11-21] MEDS: OMEPRAZOLE 20 MG CAP PO SCH (18:46)
[2020-11-21] MEDS: allopurinoL 100 MG TAB PO SCH (18:46)
[2020-11-21] MEDS: DOCUSATE SODIUM 100MG CAPSULE PO SCH (18:46)
[2020-11-21] MEDS: ceFAZolin SOD 1 GM in D5W MINI-BAG PLUS 50 ML IV SCH (18:47)
[2020-11-21] MEDS: LACTOBACILLUS ACIDOPHILUS CAP (BACID) PO SCH ×2 (18:47→21:01)
[2020-11-21] MEDS: METOPROLOL SUCC (TopROL XL) 100MG *XL* TAB PO SCH (18:51)
[2020-11-21] MEDS: amLODIPine 5 MG TAB PO SCH (18:52)
[2020-11-21] MEDS: PERCOCET 5MG/325MG TAB PO PRN (18:52)
[2020-11-21] MEDS: HumaLOG INSULIN (NovoLOG) PER UNIT SC SCH ×2 (19:49→21:02)
[2020-11-21] MEDS: SERTRALINE HCL 25 MG TABLET PO SCH (21:01)
[2020-11-21] MEDS: ROSUVASTATIN 10 MG TAB (CRESTOR) PO SCH (21:01)
[2020-11-21] MEDS: SENNA 8.6 MG TAB (SENOKOT) PO SCH (21:01)
[2020-11-21] MEDS: rOPINIRole 0.25 MG TAB(REQUIP) PO SCH (21:01)
[2020-11-21] MEDS: LATANOPROST 0.005% OPHTH SOLN 2.5 ML OU SCH (21:01)
[2020-11-21] MEDS: MICONAZOLE 2 % POWDER (DESENEX) TOP SCH (21:02)
[2020-11-21] MEDS: GABAPENTIN 100 MG CAP PO SCH (21:05)
[2020-11-22] MEDS: ceFAZolin SOD 1 GM in D5W MINI-BAG PLUS 50 ML IV SCH (00:40)
[2020-11-22 01:30] VITALS: BP 138/61
[2020-11-22 06:00] VITALS: BP 133/60
[2020-11-22] MEDS: HEPARIN SOD (PORCINE) 5000UNITS/ML 1ML VIAL/SYRINGE SQ SCH ×3 (06:00→21:20)
[2020-11-22 07:38] LABS: HEMATOCRIT 35.3 % (36.0-47.0); MEAN CORPUSCULAR HEMOGLOBIN 27.9 pg (27.0-33.0); MEAN CORPUSCULAR HGB CONC 31.2 g/dl (32.0-36.5); MEAN CORPUSCULAR VOLUME 89.6 fl (80.0-96.0); PLATELET COUNT, AUTOMATED 324 10^3/uL (150-450); RED BLOOD COUNT 3.94 10^6/uL (4.00-5.40); WHITE BLOOD COUNT 10.2 10^3/uL (4.0-10.0)
[2020-11-22 08:05] LABS: CALCIUM LEVEL 8.7 MG/DL (8.8-10.2); CREATININE FOR GFR 1.05 MG/DL (0.55-1.30); GLOMERULAR FILTRATION RATE 55.5 (>45); MAGNESIUM LEVEL 2.1 MG/DL (1.8-2.4); POTASSIUM SERUM 4.8 MEQ/L (3.5-5.1)
[2020-11-22 09:00] VITALS: O2SAT 93
[2020-11-22] MEDS: MICONAZOLE 2 % POWDER (DESENEX) TOP SCH ×2 (09:00→21:20)
--- NOTE | 2020-11-22 09:11 | IPNPDOC ---
Subjective Review oF Systems Chief Complaint The patient is a 70-year-old female admitted with a reason for visit of Renal Mass, Gross Hematuria. Events since Last Encounter No acute events o/n. Good pain control. No n/v. No f/c/ns. Objective Physical Examination General Exam: Alert, Cooperative, No Acute Distress ABDOMEN EXAM: Soft, Tenderness (mild incisional tenderness), Other (nondistended; incisions clean/dry/intact) Skin Exam: Nl turgor and temperature Psych Exam: Mental status NL, Mood NL Other physical findings catheter draining clean yellow urine Vital Signs/I&O Vital Signs Date Time Temp Pulse Resp B/P (MAP) Pulse Ox O2 Delivery O2 Flow Rate FiO2 11/22/20 06:00 98.4 86 20 133/60 (84) 96 Room Air 11/21/20 15:55 2.0 I&O- Last 24 Hours up to 6 AM 11/22/20 06:00 Intake Total 940 ml Output Total 1295 ml Balance -355 ml Laboratory Data Labs 24H Laboratory Tests 2 11/21/20 14:06: Nucleated Red Blood Cells % (auto) 0.0, Anion Gap 8, Glomerular Filtration Rate 47.1, Calcium Level 8.7L 11/21/20 17:40: Anion Gap 10, Glomerular Filtration Rate 43.0L, Calcium Level 8.8 11/21/20 19:06: Bedside Glucose (Misc Panel) 250H 11/21/20 19:46: Bedside Glucose (Misc Panel) 321H 11/22/20 07:08: Nucleated Red Blood Cells % (auto) 0.0, Anion Gap 7L, Glomerular Filtration Rate 55.5, Calcium Level 8.7L, Magnesium Level 2.1 CBC/BMP Laboratory Tests 11/21/20 14:06 11/21/20 17:40 11/22/20 07:08 FSBS Laboratory Tests Test 11/21/20 19:06 11/21/20 19:46 Range/Units Bedside Glucose (Misc Panel) 250 321 80-115 MG/DL Assessment/Plan Date Seen The patient was seen on 11/22/20. Patient Summary This is a 70 y/o F POD1 s/p R robotic radical nephrectomy, cystoscopy. She is doing well. Hb stable at 11. Cr down to 1.05 w/ normal K this morning. UOP has been good. Plan/VTE VTE Prophylaxis Ordered?: Yes VTE Exclusion Mechanical Proph: N/A:VTE Prophy Ordered VTE Exclusion Pharmacological: N/A:VTE Prophy Ordered Plan - plan to keep catheter in until tomorrow to keep close track of UOP - hold xarelto until Wednesday at the earliest - will start SQH - percocet prn pain - incentive spirometry - advance diet as tolerated PORSCHE SAMUEL MD Nov 22, 2020 09:11
[2020-11-22 10:00] VITALS: BP 137/61
[2020-11-22] MEDS: LEVEMIR (INSULIN DETEMIR) 1 UNITS/0.01ML SC SCH (10:07)
[2020-11-22] MEDS: HumaLOG INSULIN (NovoLOG) PER UNIT SC SCH ×4 (10:07→21:00)
[2020-11-22] MEDS: VITAMIN D 1,000 INTERNATIONAL UNITS TABLET PO SCH (10:08)
[2020-11-22] MEDS: amLODIPine 5 MG TAB PO SCH (10:08)
[2020-11-22] MEDS: LACTOBACILLUS ACIDOPHILUS CAP (BACID) PO SCH ×3 (10:08→21:20)
[2020-11-22] MEDS: allopurinoL 100 MG TAB PO SCH (10:09)
[2020-11-22] MEDS: GABAPENTIN 100 MG CAP PO SCH ×2 (10:09→21:20)
[2020-11-22] MEDS: OMEPRAZOLE 20 MG CAP PO SCH (10:09)
[2020-11-22] MEDS: DOCUSATE SODIUM 100MG CAPSULE PO SCH (10:09)
[2020-11-22] MEDS: FUROSEMIDE 40 MG TAB PO SCH (10:09)
[2020-11-22] MEDS: ASPIRIN 81 MG CHEW TABLET PO SCH (10:09)
[2020-11-22] MEDS: PERCOCET 5MG/325MG TAB PO PRN ×2 (10:09→21:22)
[2020-11-22] MEDS: METOPROLOL SUCC (TopROL XL) 100MG *XL* TAB PO SCH (10:10)
--- NOTE | 2020-11-22 11:02 | IPNPDOC ---
Text Note Date of Service The patient was seen on 11/22/20. NOTE Subjective: Patient is a 70-year-old female who presented to the hospital for a right nephrectomy due to a mass in her kidney. Patient is doing better today but is having some pain especially when she tries to sit up. Patient states that she only had one pretzel since coming out of surgery and does not feel very hungry. Patient is drinking water. Patient is doing otherwise well at this time. Review of systems: General: Patient denies fevers HEENT: Patient denies headaches Cardiovascular: Patient denies chest pain Respiratory: Patient denies shortness of breath, cough GI: Patient reports some pain around her incisions but this is fairly controlled as long as she is not exerting herself : Patient denies increased frequency or pain with urination Extremities: Patient denies swelling or pain in extremities Neurological: Patient denies numbness or tingling in legs Physical exam: Vitals: See below General: Alert and oriented female patient who was laying in bed when I walked in the room. Patient not appear to be in any acute distress. HEENT: Normocephalic, atraumatic, moist mucous membranes. Neck: No lymphadenopathy or thyromegaly Cardiac: Regular rate and rhythm, no murmurs, normal S1, normal S2 Pulm: Clear to auscultation bilaterally. No wheezes, rhonchi, rales Abd: Nondistended, nontender to palpation, normal bowel sounds, 3 incisions on the right side of the abdomen that were closed with Dermabond Ext: Bilateral cdkbq-sso-bitu amputations with OPTi foam dressing that was not soiled on left stump Labs: See below Imaging: No new imaging has been performed tests Assessment/plan: 70-year-old female was admitted for further monitoring after a right radical nephrectomy 1. Right renal mass. Dr. Calles of urology performed a robotic assisted laparoscopic right radical nephrectomy yesterday. Patient is doing better at this time. Dr. Ritter will leave the catheter in and we will continue to monitor. 2. Hypertension. Patient's blood pressures come back to normal range. Lisinopril is still on hold at this time as we continue to monitor the patient's kidney function. Amlodipine will be continued. 2. Type 2 diabetes mellitus. Patient is placed on sliding scale and will continue her home basal insulin. 4. Peripheral vascular disease. Patient has bilateral iwvvm-lzd-disr amputations. Continue home medications. 5. Chronic atrial fibrillation. Patient is on Xarelto at home which was held 3 days prior to surgery. Patient can restart this on Wednesday according to Dr. Calles as long as her H&H remained stable. 6. Prior CVA. Patient has right-sided upper extremity hemiparesis. Continue home medications. 7. Hyperlipidemia. Continue medications. 8. Chronic constipation. Continue home medications. 9. Depression. Continue home medications. DVT Prophylaxis: Heparin Disposition: Pending clinical improvement. Patient will most likely be discharged back to [facility] on Wednesday due to the holiday VS,James, I+O VS, James, I+O Laboratory Tests 11/21/20 14:06 11/21/20 17:40 11/22/20 07:08 Vital Signs Date Time Temp Pulse Resp B/P (MAP) Pulse Ox O2 Delivery O2 Flow Rate FiO2 11/22/20 10:09 17 Room Air 11/22/20 10:08 89 137/60 11/22/20 10:00 98.4 96 11/21/20 15:55 2.0 I&O- Last 24 Hours up to 6 AM 11/22/20 06:00 Intake Total 940 ml Output Total 1295 ml Balance -355 ml NATALI CARRILLO DO Nov 22, 2020 11:02
[2020-11-22 14:00] VITALS: BP 133/59
[2020-11-22] MEDS: ROSUVASTATIN 10 MG TAB (CRESTOR) PO SCH (21:20)
[2020-11-22] MEDS: LATANOPROST 0.005% OPHTH SOLN 2.5 ML OU SCH (21:20)
[2020-11-22] MEDS: SENNA 8.6 MG TAB (SENOKOT) PO SCH (21:20)
[2020-11-22] MEDS: rOPINIRole 0.25 MG TAB(REQUIP) PO SCH (21:22)
[2020-11-22] MEDS: SERTRALINE HCL 25 MG TABLET PO SCH (21:22)
[2020-11-22 22:00] VITALS: BP 136/61
[2020-11-23] VITALS (7 sets, daily range): BP systolic 123–139; BP diastolic 56–63; O2SAT 83–97
[2020-11-23 06:06] LABS: HEMATOCRIT 33.3 % (36.0-47.0); HEMOGLOBIN 10.3 g/dl (12.0-15.5); MEAN CORPUSCULAR HEMOGLOBIN 28.5 pg (27.0-33.0); MEAN CORPUSCULAR HGB CONC 30.9 g/dl (32.0-36.5); PLATELET COUNT, AUTOMATED 244 10^3/uL (150-450); RED BLOOD COUNT 3.62 10^6/uL (4.00-5.40); WHITE BLOOD COUNT 8.2 10^3/uL (4.0-10.0)
[2020-11-23] MEDS: HEPARIN SOD (PORCINE) 5000UNITS/ML 1ML VIAL/SYRINGE SQ SCH ×3 (06:06→21:39)
[2020-11-23 06:33] LABS: BLOOD UREA NITROGEN 28 MG/DL (7-18); CALCIUM LEVEL 8.5 MG/DL (8.8-10.2); CARBON DIOXIDE LEVEL 27 MEQ/L (21-32); CHLORIDE LEVEL 107 MEQ/L (98-107); CREATININE FOR GFR 0.86 MG/DL (0.55-1.30); GLOMERULAR FILTRATION RATE > 60.0 (>45); GLUCOSE, FASTING 164 MG/DL (70-100); MAGNESIUM LEVEL 2.1 MG/DL (1.8-2.4); POTASSIUM SERUM 4.5 MEQ/L (3.5-5.1); SODIUM LEVEL 140 MEQ/L (136-145)
[2020-11-23] MEDS: LEVEMIR (INSULIN DETEMIR) 1 UNITS/0.01ML SC SCH (09:09)
[2020-11-23] MEDS: HumaLOG INSULIN (NovoLOG) PER UNIT SC SCH ×4 (09:09→20:29)
[2020-11-23] MEDS: GABAPENTIN 100 MG CAP PO SCH ×2 (09:09→21:40)
[2020-11-23] MEDS: DOCUSATE SODIUM 100MG CAPSULE PO SCH (09:09)
[2020-11-23] MEDS: ASPIRIN 81 MG CHEW TABLET PO SCH (09:09)
[2020-11-23] MEDS: OMEPRAZOLE 20 MG CAP PO SCH (09:09)
[2020-11-23] MEDS: LACTOBACILLUS ACIDOPHILUS CAP (BACID) PO SCH ×3 (09:09→21:40)
[2020-11-23] MEDS: amLODIPine 5 MG TAB PO SCH (09:10)
[2020-11-23] MEDS: VITAMIN D 1,000 INTERNATIONAL UNITS TABLET PO SCH (09:10)
[2020-11-23] MEDS: FUROSEMIDE 40 MG TAB PO SCH (09:10)
[2020-11-23] MEDS: allopurinoL 100 MG TAB PO SCH (09:10)
[2020-11-23] MEDS: METOPROLOL SUCC (TopROL XL) 100MG *XL* TAB PO SCH (09:10)
[2020-11-23] MEDS: PERCOCET 5MG/325MG TAB PO PRN ×2 (09:12→21:42)
[2020-11-23] MEDS: MICONAZOLE 2 % POWDER (DESENEX) TOP SCH ×2 (09:13→21:40)
--- NOTE | 2020-11-23 10:44 | IPNPDOC ---
Text Note Date of Service The patient was seen on 11/23/20. NOTE Subjective: Patient is a 70-year-old female who is 2 days postop from a robotic assisted laparoscopic right radical nephrectomy due to a mass and an atrophic right kidney. Patient is doing better. Patient has been tolerating a diet. Patient does not have any acute complaints today. Review of systems: General: Patient denies fevers HEENT: Patient denies headaches Cardiovascular: Patient denies chest pain Respiratory: Patient denies shortness of breath, cough GI: Patient denies abdominal pain, nausea, vomiting, diarrhea : Patient denies increased frequency or pain with urination Extremities: Patient denies swelling or pain in extremities Neurological: Patient denies numbness or tingling in legs Physical exam: Vitals: See below General: Alert and oriented female who is lying in bed when I walked in. Patient did not appear to be in any acute distress. HEENT: Normocephalic, atraumatic, moist mucous membranes. Neck: No lymphadenopathy or thyromegaly Cardiac: Regular rate and rhythm, no murmurs, normal S1, normal S2 Pulm: Clear to auscultation bilaterally. No wheezes, rhonchi, rales Abd: Nondistended, nontender to palpation except over the 3 incision on the right abdomen that are closed with Dermabond, no erythema, mild ecchymosis around the incisions. Ext: Patient has bilateral kgkox-nqv-wobk amputations with OPTi foam dressing that was not swelling on the left stump Labs: See below Imaging: No new imaging has been performed Assessment/plan: 70-year-old female who was admitted for further monitoring after right radical nephrectomy. 1. Right renal mass. Dr. Calles of urology performed a robotic assisted laparoscopic right radical nephrectomy on 11/21/2020. Patient is doing better at this point Dr. Calles will have the catheter removed today and we will continue to monitor. 2. Hypertension. Patient's blood pressures are in the normal range. We will restart her lisinopril this evening. Patient will continue on amlodipine. 3. Type 2 diabetes mellitus. Sliding scale insulin continue home basal insulin. 4. Peripheral vascular disease. Patient has bilateral fgcxn-wnh-xujo amputations. Continue home medications. 5. Chronic atrial fibrillation. Patient is on Xarelto at home but this been held 3 days prior to surgery. This can be restarted on Wednesday according to Dr. Calles as long as her H&H remained stable. 6. Prior CVA. Patient has right-sided upper extremity hemiparesis. Continue home medications. 7. Hyperlipidemia. Continue home medications. 8. Chronic constipation. Continue home medications. 9. Depression. Continue home medications. DVT Prophylaxis: Heparin Disposition: Patient will most likely be discharged back to [facility] on Wednesday due to the holiday. VS,Sene, I+O VS, Ivanbone, I+O Laboratory Tests 11/23/20 05:43 Vital Signs Date Time Temp Pulse Resp B/P (MAP) Pulse Ox O2 Delivery O2 Flow Rate FiO2 11/23/20 09:51 20 Nasal Cannula 2.0 11/23/20 09:12 98 142/84 92 11/23/20 06:00 98.0 I&O- Last 24 Hours up to 6 AM 11/23/20 06:00 Intake Total 1770 ml Output Total 1250 ml Balance 520 ml NATALI CARRILLO DO Nov 23, 2020 10:44
--- NOTE | 2020-11-23 12:53 | IPNPDOC ---
Text Note Date of Service The patient was seen on 11/23/20. NOTE The patient is postop day #2 right robotic radical nephrectomy and cystoscopy. Her hemoglobin yesterday was 11 and is down to 10.3 today so we will continue to watch it. Her creatinine is normal. Her pain control is good. She has been eating a normal diet but still not passing a lot of gas but denies bloating or significant burping. Physical exam: She is a well-developed well nourished female lying in a hospital bed. She is alert and oriented x3. Her abdomen is soft and nontender. Her incisions are healing well. She has had bilateral cujjk-ljp-wotn amputations wi th foam dressing on now. Impression -Postop day #2 right robotic radical nephrectomy and doing well from that standpoint -Watch H&H since it is slowly drifting down and we will hold off on the Xarelto for now -Slowly advance diet but if she becomes bloated or increased burping then we may need to hold off until her ileus is resolved -Other medical problems include type 2 diabetes, peripheral vascular disease with akfgc-qaw-wpfz amputations, high blood pressure, and A. fib, and history of CVA VS,Fishbone, I+O VS, Fishbone, I+O Laboratory Tests 11/23/20 05:43 Vital Signs Date Time Temp Pulse Resp B/P (MAP) Pulse Ox O2 Delivery O2 Flow Rate FiO2 11/23/20 11:49 145/65 11/23/20 09:51 20 Nasal Cannula 2.0 11/23/20 09:12 98 92 11/23/20 06:00 98.0 I&O- Last 24 Hours up to 6 AM 11/23/20 06:00 Intake Total 1770 ml Output Total 1250 ml Balance 520 ml LOI HANCOCK MD Nov 23, 2020 12:53
[2020-11-23] MEDS: LATANOPROST 0.005% OPHTH SOLN 2.5 ML OU SCH (21:40)
[2020-11-23] MEDS: SERTRALINE HCL 25 MG TABLET PO SCH (21:40)
[2020-11-23] MEDS: rOPINIRole 0.25 MG TAB(REQUIP) PO SCH (21:40)
[2020-11-23] MEDS: ROSUVASTATIN 10 MG TAB (CRESTOR) PO SCH (21:40)
[2020-11-23] MEDS: SENNA 8.6 MG TAB (SENOKOT) PO SCH (21:40)
[2020-11-24] MEDS: HEPARIN SOD (PORCINE) 5000UNITS/ML 1ML VIAL/SYRINGE SQ SCH ×3 (05:24→21:32)
[2020-11-24 06:00] VITALS: BP 131/71
[2020-11-24 06:30] LABS: MEAN CORPUSCULAR HEMOGLOBIN 28.4 pg (27.0-33.0); MEAN CORPUSCULAR HGB CONC 31.3 g/dl (32.0-36.5); MEAN CORPUSCULAR VOLUME 90.9 fl (80.0-96.0); PLATELET COUNT, AUTOMATED 230 10^3/uL (150-450); RED BLOOD COUNT 3.52 10^6/uL (4.00-5.40); WHITE BLOOD COUNT 8.5 10^3/uL (4.0-10.0)
[2020-11-24 06:38] LABS: BLOOD UREA NITROGEN 25 MG/DL (7-18); CALCIUM LEVEL 8.6 MG/DL (8.8-10.2); CARBON DIOXIDE LEVEL 27 MEQ/L (21-32); CHLORIDE LEVEL 106 MEQ/L (98-107); CREATININE FOR GFR 0.71 MG/DL (0.55-1.30); GLOMERULAR FILTRATION RATE > 60.0 (>45); GLUCOSE, FASTING 192 MG/DL (70-100); MAGNESIUM LEVEL 1.9 MG/DL (1.8-2.4); POTASSIUM SERUM 4.1 MEQ/L (3.5-5.1); SODIUM LEVEL 140 MEQ/L (136-145)
[2020-11-24] MEDS: DOCUSATE SODIUM 100MG CAPSULE PO SCH ×2 (08:55→21:40)
[2020-11-24] MEDS: allopurinoL 100 MG TAB PO SCH (08:55)
[2020-11-24] MEDS: GABAPENTIN 100 MG CAP PO SCH ×2 (08:55→21:41)
[2020-11-24] MEDS: amLODIPine 5 MG TAB PO SCH (08:55)
[2020-11-24] MEDS: LACTOBACILLUS ACIDOPHILUS CAP (BACID) PO SCH ×3 (08:55→21:39)
[2020-11-24] MEDS: ASPIRIN 81 MG CHEW TABLET PO SCH (08:55)
[2020-11-24] MEDS: OMEPRAZOLE 20 MG CAP PO SCH (08:56)
[2020-11-24] MEDS: FUROSEMIDE 40 MG TAB PO SCH (08:56)
[2020-11-24] MEDS: VITAMIN D 1,000 INTERNATIONAL UNITS TABLET PO SCH (08:56)
[2020-11-24] MEDS: METOPROLOL SUCC (TopROL XL) 100MG *XL* TAB PO SCH (08:56)
[2020-11-24] MEDS: PERCOCET 5MG/325MG TAB PO PRN ×2 (08:58→21:41)
[2020-11-24] MEDS: LEVEMIR (INSULIN DETEMIR) 1 UNITS/0.01ML SC SCH (08:59)
[2020-11-24] MEDS: MICONAZOLE 2 % POWDER (DESENEX) TOP SCH ×2 (09:07→21:42)
[2020-11-24] MEDS: HumaLOG INSULIN (NovoLOG) PER UNIT SC SCH ×4 (10:23→21:00)
[2020-11-24] MEDS: SENNA 8.6 MG TAB (SENOKOT) PO SCH ×2 (10:26→21:39)
[2020-11-24 11:18] VITALS: O2SAT 96
--- NOTE | 2020-11-24 12:40 | IPNPDOC ---
Text Note Date of Service The patient was seen on 11/24/20. NOTE The patient is postop day #3 right robotic radical nephrectomy and cystoscopy. Her hemoglobin yesterday was 10.3 and today is 10. Her Fernandes catheter has been removed and her creatinine is stable. Unfortunately she has not been out of bed since she is here so I have talked with the nurses to try to get physical therapy involved so at least she can sit in a wheelchair. She is passing gas from down below and tolerating a diet. Physical examination: Well-developed well-nourished female with bilateral fndnz-guq-adph amputations with no respiratory distress. She is alert and oriented x3. Her abdomen is soft and nontender and her incisions are healing well. Plan -Get physical therapy involved to get patient at least in a wheelchair so she can start moving around and be sitting up during the day -Patient to be discharged back to [facility] probably on Wednesday VS,Fishbone, I+O VS, Ivanbone, I+O Laboratory Tests 11/24/20 05:47 Vital Signs Date Time Temp Pulse Resp B/P (MAP) Pulse Ox O2 Delivery O2 Flow Rate FiO2 11/24/20 11:18 96 Room Air 11/24/20 09:28 18 11/24/20 08:55 70 172/96 11/24/20 06:00 97.8 11/23/20 22:12 2.0 I&O- Last 24 Hours up to 6 AM 11/24/20 06:00 Intake Total 1820 ml Output Total 600 ml Balance 1220 ml LOI HANCOCK MD Nov 24, 2020 12:40
[2020-11-24 14:00] VITALS: BP 121/66
--- NOTE | 2020-11-24 14:22 | IPNPDOC ---
Text Note Date of Service The patient was seen on 11/24/20. NOTE Subjective: Patient is a 62-year-old female with 3 days postop from robotic as sisted laparoscopic right radical nephrectomy due to a mass and atrophic kidney. Patient is doing better. Patient states he has not a bowel movement but is passing some gas. Patient does not have any complaints today. Review of systems: General: Patient denies fevers HEENT: Patient denies headaches Cardiovascular: Patient denies chest pain Respiratory: Patient denies shortness of breath, cough GI: Patient denies abdominal pain, nausea, vomiting, diarrhea : Patient denies increased frequency or pain with urination Physical exam: Vitals: See below General: Alert and oriented female patient was lying in bed when I walked in the room. Patient not appear to be in any acute distress. HEENT: Normocephalic, atraumatic, moist mucous membranes. Neck: No lymphadenopathy or thyromegaly Cardiac: Regular rate and rhythm, no murmurs, normal S1, normal S2 Pulm: Clear to auscultation bilaterally. No wheezes, rhonchi, rales Abd: Nondistended, mild tenderness on the left lower quadrant and over the 3 incision on the right abdomen. These incisions are clean and dry. Ext: Patient has bilateral tlgmm-htt-lewm amputations OPTi foam dressing that will were not soiled on the left stump Labs: See below Imaging: No new imaging has been performed Assessment/plan: 70-year-old female was admitted for further monitoring after right radical nephrectomy 1. Right renal mass. Dr. Calles of urology performed a robotic assisted laparoscopic right radical nephrectomy on 11/2020. Patient is doing better at this time. Catheters were removed. Creatinine is stabilized. We will continue to monitor. 2. Hypertension. Patient's blood pressure is normal range. We will start her lisinopril. Patient continues on amlodipine. 3. Type 2 diabetes mellitus. Continue sliding scale insulin with home basal insulin. 4. Peripheral vascular disease. Patient has bilateral zbeqr-wsq-cslx amputat ions. Continue medication. 5. Chronic atrial fibrillation. Patient is on Xarelto at home but this was held 3 days prior to surgery. This can be restarted tomorrow as long as her H&H remained stable which has been. 6. Prior CVA. Patient has right sided upper extremity hemiparesis. Continue m edications. 7. Hyperlipidemia. Continue home medications. 8. Chronic constipation. I did increase both senna and docusate to twice a day in order to get the patient to get a bowel movement she has been taking opiate pain medications which may worsening her already chronic constipation. 9. Depression. Continue medications. DVT Prophylaxis: Heparin Disposition: Discharge on Wednesday back to [facility]. VS,Fishbone, I+O VS, Fishbone, I+O Laboratory Tests 11/24/20 05:47 Vital Signs Date Time Temp Pulse Resp B/P (MAP) Pulse Ox O2 Delivery O2 Flow Rate FiO2 11/24/20 11:18 96 Room Air 11/24/20 09:28 18 11/24/20 08:55 70 172/96 11/24/20 06:00 97.8 11/23/20 22:12 2.0 I&O- Last 24 Hours up to 6 AM 11/24/20 06:00 Intake Total 1820 ml Output Total 600 ml Balance 1220 ml NATALI CARRILLO DO Nov 24, 2020 14:22
[2020-11-24] MEDS: ROSUVASTATIN 10 MG TAB (CRESTOR) PO SCH (21:38)
[2020-11-24] MEDS: SERTRALINE HCL 25 MG TABLET PO SCH (21:39)
[2020-11-24] MEDS: LATANOPROST 0.005% OPHTH SOLN 2.5 ML OU SCH (21:42)
[2020-11-24] MEDS: rOPINIRole 0.25 MG TAB(REQUIP) PO SCH (21:57)
[2020-11-24 22:00] VITALS: BP 163/72
[2020-11-25 06:00] VITALS: BP 157/94
[2020-11-25 06:32] LABS: HEMATOCRIT 33.5 % (36.0-47.0); HEMOGLOBIN 10.6 g/dl (12.0-15.5); MEAN CORPUSCULAR HEMOGLOBIN 28.1 pg (27.0-33.0); MEAN CORPUSCULAR HGB CONC 31.6 g/dl (32.0-36.5); MEAN CORPUSCULAR VOLUME 88.9 fl (80.0-96.0); PLATELET COUNT, AUTOMATED 249 10^3/uL (150-450); RED BLOOD COUNT 3.77 10^6/uL (4.00-5.40); WHITE BLOOD COUNT 9.1 10^3/uL (4.0-10.0)
[2020-11-25] MEDS: HEPARIN SOD (PORCINE) 5000UNITS/ML 1ML VIAL/SYRINGE SQ SCH ×3 (06:44→21:24)
[2020-11-25 06:53] LABS: BLOOD UREA NITROGEN 18 MG/DL (7-18); CALCIUM LEVEL 8.8 MG/DL (8.8-10.2); CARBON DIOXIDE LEVEL 27 MEQ/L (21-32); CHLORIDE LEVEL 105 MEQ/L (98-107); CREATININE FOR GFR 0.66 MG/DL (0.55-1.30); GLOMERULAR FILTRATION RATE > 60.0 (>45); GLUCOSE, FASTING 199 MG/DL (70-100); MAGNESIUM LEVEL 1.7 MG/DL (1.8-2.4); SODIUM LEVEL 139 MEQ/L (136-145)
[2020-11-25] MEDS: ASPIRIN 81 MG CHEW TABLET PO SCH (08:54)
[2020-11-25] MEDS: amLODIPine 5 MG TAB PO SCH (08:55)
[2020-11-25] MEDS: METOPROLOL SUCC (TopROL XL) 100MG *XL* TAB PO SCH (08:55)
[2020-11-25] MEDS: OMEPRAZOLE 20 MG CAP PO SCH (08:57)
[2020-11-25] MEDS: DOCUSATE SODIUM 100MG CAPSULE PO SCH ×2 (08:57→21:25)
[2020-11-25] MEDS: VITAMIN D 1,000 INTERNATIONAL UNITS TABLET PO SCH (08:57)
[2020-11-25] MEDS: SENNA 8.6 MG TAB (SENOKOT) PO SCH ×2 (08:57→21:25)
[2020-11-25] MEDS: LACTOBACILLUS ACIDOPHILUS CAP (BACID) PO SCH ×3 (08:57→21:25)
[2020-11-25] MEDS: GABAPENTIN 100 MG CAP PO SCH ×2 (08:57→21:25)
[2020-11-25] MEDS: allopurinoL 100 MG TAB PO SCH (08:58)
[2020-11-25] MEDS: FUROSEMIDE 40 MG TAB PO SCH (08:58)
[2020-11-25] MEDS: MICONAZOLE 2 % POWDER (DESENEX) TOP SCH ×2 (08:59→21:33)
[2020-11-25] MEDS: HumaLOG INSULIN (NovoLOG) PER UNIT SC SCH ×4 (11:00→21:00)
[2020-11-25] MEDS: LEVEMIR (INSULIN DETEMIR) 1 UNITS/0.01ML SC SCH (11:28)
--- NOTE | 2020-11-25 12:07 | IPNPDOC ---
Text Note Date of Service The patient was seen on 11/25/20. NOTE Patient is postop day #4 right radical nephrectomy and cystoscopy. Her hemogl obin is back up to 10.6 from 10 yesterday. She is moving her bowels and tolerating a diet. She has very minimal postoperative pain. Physical exam: Well-developed well-nourished female with bilateral uutsq-cdr-ouwi amputations lying in a hospital bed. She is alert and oriented x3. Her abdomen is soft and nontender and she has well-healing surgical incisions. Plan -Patient is cleared from a urologic standpoint and to be discharged back to [facility] most likely tomorrow since it has been a holiday weekend VS,James, I+O VS, James, I+O Laboratory Tests 11/25/20 06:19 Vital Signs Date Time Temp Pulse Resp B/P (MAP) Pulse Ox O2 Delivery O2 Flow Rate FiO2 11/25/20 08:55 95 169/68 11/25/20 06:00 98.0 18 94 Room Air 11/24/20 22:20 2.0 I&O- Last 24 Hours up to 6 AM 11/25/20 06:00 Intake Total 880 ml Balance 880 ml LOI HANCOCK MD Nov 25, 2020 12:07
--- NOTE | 2020-11-25 12:58 | IPNPDOC ---
Text Note Date of Service The patient was seen on 11/25/20. NOTE Subjective: Patient is a 70-year-old who is now 4 days postop from robotic ass isted laparoscopic right radical nephrectomy due to a mass and atrophic right kidney. I walked in the room today, patient appeared to be in pain was stating she was try to have a bowel movement but she was having she had a lot of difficulty. Patient was crying out for help to have a bowel movement. Patient has been on opiate pain medication due to her surgery and has chronic constipation issues. Patient is otherwise doing well after her surgery. Review of systems: General: Patient denies fevers HEENT: Patient denies headaches Cardiovascular: Patient denies chest pain Respiratory: Patient denies shortness of breath, cough GI: Patient denies abdominal pain, nausea, vomiting, diarrhea : Patient denies increased frequency or pain with urination Physical exam: Vitals: See below General: Alert and oriented patient who was lying in bed when I walked in the room. Patient did appear to be uncomfortable as she was trying to have a bowel movement, after manual disimpaction, the patient was much more comfortable. After manual disimpaction, patient did not appear to be in any acute distress. HEENT: Normocephalic, atraumatic, moist mucous membranes. Neck: No lymphadenopathy or thyromegaly Cardiac: Regular rate and rhythm, no murmurs, normal S1, normal S2 Pulm: Clear to auscultation bilaterally. No wheezes, rhonchi, rales Abd: Nondistended, nontender to palpation, normal bowel sounds, soft, incisions are healing well Ext: Patient has bilateral tmnoj-xvh-amyt amputations. OPTi foam dressing on the left stump is not soiled. Rectal: With the help of 2 RNs, Lisbet, patient was turned to have a suppository place and I noticed a large stool ball in the anal opening. I discussed with the patient that she will most likely need manual disimpaction and manual disimpaction was performed, no masses felt in the rectum after removal of all hard stool that could be reached. Labs: See below Imaging: No new imaging has been performed. Assessment/plan: 70-year-old female omitted for further monitoring after right radical nephrectomy 1. Right renal mass. Dr. Calles of urology performed a robotic assisted laparoscopic right radical nephrectomy on 11/21/2020. Patient is doing better at this time. Catheters were removed few days ago. Creatinine is stabilized. We will continue to monitor. 2. Hypertension. Patient's blood pressure is in the normal range. We will start her lisinopril. Continue amlodipine. 3. Type 2 diabetes mellitus. Continue sliding scale insulin with home basal insulin. Patient missed her morning insulin and her blood sugar was high at lunchtime. 4. Peripheral vascular disease. Bilateral moygb-pzl-epwj amputations. Continue home medications. 5. Chronic atrial fibrillation. Patient on Xarelto at home which can be restarted today since her H&H has been stable according to their instructions given by Dr. Calles. 6. Prior CVA. Patient had right-sided upper extremity hemiparesis. Continue medications. 7. Hyperlipidemia. Continue home medications. 8. Chronic constipation. Patient had a large hard stool ball in the rectum. Patient required manual disimpaction and was feeling much better after disimpaction. 9. Depression. Continue medications. DVT Prophylaxis: Heparin, patient was started on Xarelto today. Disposition: Discharge tomorrow to [facility]. VS,James, I+O VS, James, I+O Laboratory Tests 11/25/20 06:19 Vital Signs Date Time Temp Pulse Resp B/P (MAP) Pulse Ox O2 Delivery O2 Flow Rate FiO2 11/25/20 08:55 95 169/68 11/25/20 06:00 98.0 18 94 Room Air 11/24/20 22:20 2.0 I&O- Last 24 Hours up to 6 AM 11/25/20 06:00 Intake Total 880 ml Balance 880 ml NATALI CARRILLO DO Nov 25, 2020 12:58
[2020-11-25 14:00] VITALS: BP 161/74
[2020-11-25 21:00] VITALS: O2SAT 96
[2020-11-25] MEDS: ROSUVASTATIN 10 MG TAB (CRESTOR) PO SCH (21:25)
[2020-11-25] MEDS: rOPINIRole 0.25 MG TAB(REQUIP) PO SCH (21:25)
[2020-11-25] MEDS: SERTRALINE HCL 25 MG TABLET PO SCH (21:25)
[2020-11-25] MEDS: LATANOPROST 0.005% OPHTH SOLN 2.5 ML OU SCH (21:32)
[2020-11-25 22:00] VITALS: BP 165/77
[2020-11-26] MEDS: HEPARIN SOD (PORCINE) 5000UNITS/ML 1ML VIAL/SYRINGE SQ SCH (05:35)
[2020-11-26 06:00] VITALS: BP 182/96
[2020-11-26 06:27] LABS: HEMATOCRIT 32.4 % (36.0-47.0); HEMOGLOBIN 10.2 g/dl (12.0-15.5); MEAN CORPUSCULAR HEMOGLOBIN 27.9 pg (27.0-33.0); MEAN CORPUSCULAR HGB CONC 31.5 g/dl (32.0-36.5); MEAN CORPUSCULAR VOLUME 88.8 fl (80.0-96.0); PLATELET COUNT, AUTOMATED 264 10^3/uL (150-450); RED BLOOD COUNT 3.65 10^6/uL (4.00-5.40); WHITE BLOOD COUNT 8.1 10^3/uL (4.0-10.0)
[2020-11-26 06:47] VITALS: BP 140/80
[2020-11-26 06:48] LABS: BLOOD UREA NITROGEN 16 MG/DL (7-18); CALCIUM LEVEL 8.8 MG/DL (8.8-10.2); CARBON DIOXIDE LEVEL 26 MEQ/L (21-32); CHLORIDE LEVEL 107 MEQ/L (98-107); CREATININE FOR GFR 0.61 MG/DL (0.55-1.30); GLOMERULAR FILTRATION RATE > 60.0 (>45); GLUCOSE, FASTING 193 MG/DL (70-100); POTASSIUM SERUM 4.1 MEQ/L (3.5-5.1); SODIUM LEVEL 141 MEQ/L (136-145)
--- NOTE | 2020-11-26 08:33 | IPNPDOC ---
Subjective Review oF Systems Chief Complaint The patient is a 70-year-old female admitted with a reason for visit of Renal Mass, Gross Hematuria. Events since Last Encounter No acute events o/n. Patient notes minimal pain. No n/v. No f/c/ns. Objective Physical Examination General Exam: Alert, Cooperative, No Acute Distress ABDOMEN EXAM: Soft, Other (nondistended; incisions clean/dry/intact); No: Tenderness Skin Exam: Nl turgor and temperature Psych Exam: Mental status NL, Mood NL Vital Signs/I&O Vital Signs Date Time Temp Pulse Resp B/P (MAP) Pulse Ox O2 Delivery O2 Flow Rate FiO2 11/26/20 06:47 140/80 (100) 11/26/20 06:00 98.4 103 18 97 Room Air 11/24/20 22:20 2.0 I&O- Last 24 Hours up to 6 AM 11/26/20 05:59 Intake Total 1400 ml Output Total 0 ml Balance 1400 ml Laboratory Data Labs 24H Laboratory Tests 2 11/25/20 11:20: Bedside Glucose (Misc Panel) 358H 11/25/20 16:32: Bedside Glucose (Misc Panel) 177H 11/25/20 21:03: Bedside Glucose (Misc Panel) 228H 11/26/20 06:00: Nucleated Red Blood Cells % (auto) 0.0, Anion Gap 8, Glomerular Filtration Rate > 60.0, Calcium Level 8.8, Magnesium Level 2.0 CBC/BMP Laboratory Tests 11/26/20 06:00 FSBS Laboratory Tests Test 11/25/20 11:20 11/25/20 16:32 11/25/20 21:03 Range/Units Bedside Glucose (Misc Panel) 358 177 228 80-115 MG/DL Assessment/Plan Date Seen The patient was seen on 11/26/20. Patient Summary This is a 70 y/o F POD5 s/p R robotic radical nephrectomy and cystoscopy. She is doing well. Her Hb is stable at 10.2. Her Cr is 0.6. Plan/VTE VTE Prophylaxis Ordered?: Yes VTE Exclusion Mechanical Proph: N/A:VTE Prophy Ordered VTE Exclusion Pharmacological: N/A:VTE Prophy Ordered Plan - ok to resume xarelto today - stop SQH - continue other home meds - percocet prn pain - regular diet - ok for discharge back to [facility] today - patient's postop appt has already been arranged PORSCHE SAMUEL MD Nov 26, 2020 08:33
[2020-11-26] MEDS: LEVEMIR (INSULIN DETEMIR) 1 UNITS/0.01ML SC SCH (09:33)
[2020-11-26] MEDS: HumaLOG INSULIN (NovoLOG) PER UNIT SC SCH ×4 (09:34→22:41)
[2020-11-26] MEDS: ASPIRIN 81 MG CHEW TABLET PO SCH (09:34)
[2020-11-26] MEDS: OMEPRAZOLE 20 MG CAP PO SCH (09:34)
[2020-11-26] MEDS: GABAPENTIN 100 MG CAP PO SCH ×2 (09:35→23:13)
[2020-11-26] MEDS: LACTOBACILLUS ACIDOPHILUS CAP (BACID) PO SCH ×3 (09:35→23:12)
[2020-11-26] MEDS: SENNA 8.6 MG TAB (SENOKOT) PO SCH ×2 (09:35→23:12)
[2020-11-26] MEDS: allopurinoL 100 MG TAB PO SCH (09:35)
[2020-11-26] MEDS: VITAMIN D 1,000 INTERNATIONAL UNITS TABLET PO SCH (09:35)
[2020-11-26] MEDS: DOCUSATE SODIUM 100MG CAPSULE PO SCH ×2 (09:36→23:13)
[2020-11-26] MEDS: MICONAZOLE 2 % POWDER (DESENEX) TOP SCH ×2 (09:38→23:14)
[2020-11-26] MEDS: FUROSEMIDE 40 MG TAB PO SCH (09:39)
[2020-11-26] MEDS: amLODIPine 5 MG TAB PO SCH (09:40)
[2020-11-26] MEDS: METOPROLOL SUCC (TopROL XL) 100MG *XL* TAB PO SCH (09:40)
--- NOTE | 2020-11-26 11:08 | IPNPDOC ---
Text Note Date of Service The patient was seen on 11/26/20. NOTE Subjective: Patient is 70-year-old female is now 5 days postop from robotic as sisted laparoscopic right radical nephrectomy due to a mass and atrophic kidney. Patient is feeling much better today and says she was able to have another bowel movement after she was disimpacted yesterday. Patient is otherwise doing well. Review of systems: General: Patient denies fevers HEENT: Patient denies headaches Cardiovascular: Patient denies chest pain Respiratory: Patient denies shortness of breath, cough GI: Patient denies abdominal pain, nausea, vomiting, diarrhea : Patient denies increased frequency or pain with urination Extremities: Patient denies swelling or pain in extremities Neurological: Patient denies numbness or tingling in legs Physical exam: Vitals: See below General: Alert and oriented female who was laying in bed when I walked in. Patient did not appear to be in any acute distress. HEENT: Normocephalic, atraumatic, moist mucous membranes. Neck: No lymphadenopathy or thyromegaly Cardiac: Regular rate and rhythm, no murmurs, normal S1, normal S2 Pulm: Clear to auscultation bilaterally. No wheezes, rhonchi, rales Abd: Nondistended, nontender to palpation, normal bowel sounds, incisions are healing well Ext: Bilateral thtex-nou-gxbu amputations, OPTi foam dressing on left stump is not soiled Labs: See below Imaging: No new imaging has been performed Assessment/plan: 70-year-old female who was admitted for further monitoring after right radical nephrectomy 1. Right renal mass. Dr. Calles of urology performed a robotic assisted laparoscopic right radical nephrectomy on 11/21/2020. Patient is doing better at this time. Catheter was removed few days ago. Creatinine is stabilized. Patient is ready for discharge from urological standpoint according to the urology notes. 2. Hypertension. Patient's blood pressure is in the normal range. Lisinopril restarted. Continue amlodipine. 2. Type 2 diabetes mellitus. Continue sliding scale insulin with home basal insulin. Patient's blood sugars were elevated yesterday but are back in the normal range today. 4. Peripheral vascular disease. Bilateral jkkky-mxg-dmld amputations. C ontinue home medication. 5. Chronic atrial fibrillation. Patient is on Xarelto at home which can be restarted as her H&H has been stable. 6. Prior CVA. Patient had right-sided upper extremity hemiparesis. Continue home medications. 7. Hyperlipidemia. Continue home medications. 8. Chronic constipation. Patient was disimpacted yesterday and had a softer bowel movement after this. Continue medications. 9. Depression. Continue home medications. DVT Prophylaxis: Full anticoagulation with Xarelto Disposition: Discharge hopefully tomorrow as transportation fell through today so the patient is unable to be discharged back to [facility] today. VS,Ivanbone, I+O VS, Fishbone, I+O Laboratory Tests 11/26/20 06:00 Vital Signs Date Time Temp Pulse Resp B/P (MAP) Pulse Ox O2 Delivery O2 Flow Rate FiO2 11/26/20 09:40 80 166/88 11/26/20 06:00 98.4 18 97 Room Air 11/24/20 22:20 2.0 I&O- Last 24 Hours up to 6 AM 11/26/20 06:00 Intake Total 1180 ml Output Total 0 ml Balance 1180 ml NATALI CARRILLO DO Nov 26, 2020 11:08
[2020-11-26 14:00] VITALS: BP 147/74
[2020-11-26] MEDS ORDERED: RIVAROXABAN 20 MG TAB (XARELTO) PO SCH (18:00)
[2020-11-26 22:35] VITALS: BP 169/71
[2020-11-26] MEDS: LATANOPROST 0.005% OPHTH SOLN 2.5 ML OU SCH (22:45)
[2020-11-26] MEDS: ROSUVASTATIN 10 MG TAB (CRESTOR) PO SCH (23:12)
[2020-11-26] MEDS: rOPINIRole 0.25 MG TAB(REQUIP) PO SCH (23:12)
[2020-11-26] MEDS: SERTRALINE HCL 25 MG TABLET PO SCH (23:12)
[2020-11-27 06:00] VITALS: BP 161/70
[2020-11-27 06:40] LABS: HEMATOCRIT 32.8 % (36.0-47.0); HEMOGLOBIN 10.2 g/dl (12.0-15.5); MEAN CORPUSCULAR HEMOGLOBIN 28.1 pg (27.0-33.0); MEAN CORPUSCULAR HGB CONC 31.1 g/dl (32.0-36.5); MEAN CORPUSCULAR VOLUME 90.4 fl (80.0-96.0); PLATELET COUNT, AUTOMATED 260 10^3/uL (150-450); RED BLOOD COUNT 3.63 10^6/uL (4.00-5.40)
[2020-11-27 06:49] LABS: BLOOD UREA NITROGEN 19 MG/DL (7-18); CARBON DIOXIDE LEVEL 28 MEQ/L (21-32); CHLORIDE LEVEL 106 MEQ/L (98-107); CREATININE FOR GFR 0.74 MG/DL (0.55-1.30); GLOMERULAR FILTRATION RATE > 60.0 (>45); GLUCOSE, FASTING 186 MG/DL (70-100); MAGNESIUM LEVEL 2.1 MG/DL (1.8-2.4); POTASSIUM SERUM 4.7 MEQ/L (3.5-5.1); SODIUM LEVEL 140 MEQ/L (136-145)
[2020-11-27 08:07] VITALS: BP 160/72
[2020-11-27] MEDS: OMEPRAZOLE 20 MG CAP PO SCH (08:07)
[2020-11-27] MEDS: DOCUSATE SODIUM 100MG CAPSULE PO SCH (08:07)
[2020-11-27] MEDS: METOPROLOL SUCC (TopROL XL) 100MG *XL* TAB PO SCH (08:07)
[2020-11-27] MEDS: GABAPENTIN 100 MG CAP PO SCH (08:07)
[2020-11-27] MEDS: ASPIRIN 81 MG CHEW TABLET PO SCH (08:07)
[2020-11-27] MEDS: VITAMIN D 1,000 INTERNATIONAL UNITS TABLET PO SCH (08:08)
[2020-11-27] MEDS: allopurinoL 100 MG TAB PO SCH (08:08)
[2020-11-27] MEDS: FUROSEMIDE 40 MG TAB PO SCH (08:08)
[2020-11-27] MEDS: SENNA 8.6 MG TAB (SENOKOT) PO SCH (08:08)
[2020-11-27] MEDS: amLODIPine 5 MG TAB PO SCH (08:08)
[2020-11-27] MEDS: LACTOBACILLUS ACIDOPHILUS CAP (BACID) PO SCH (08:08)
[2020-11-27] MEDS: LEVEMIR (INSULIN DETEMIR) 1 UNITS/0.01ML SC SCH (08:10)
[2020-11-27] MEDS: HumaLOG INSULIN (NovoLOG) PER UNIT SC SCH (08:10)
[2020-11-27] MEDS: MICONAZOLE 2 % POWDER (DESENEX) TOP SCH (09:52)
--- NOTE | 2020-11-27 14:32 | DS.PDOC ---
Discharge Summary General Date of Admission Nov 21, 2020 at 06:22 Date of Discharge 11/27/2020 Primary Care Physician: BJ MELISSA DO Attending Physician: NATALI CARRILLO DO Specialist/Consultants Involve: PORSCHE SAMUEL MD Specialist/Consultants Involve Maggie Menon MD, urology Discharge Summary PROCEDURES PERFORMED DURING STAY: Robotic assisted laparoscopic right radical nephrectomy. ADMITTING DIAGNOSES: 1. Right renal mass. 2. Hypertension 3. Type 2 diabetes mellitus 4. Peripheral vascular disease 5. Chronic atrial fibrillation 6. Prior CVA 7. Hyperlipidemia 8. Chronic constipation 9. Depression DISCHARGE DIAGNOSES: 1. Right renal mass. 2. Hypertension 3. Type 2 diabetes mellitus 4. Peripheral vascular disease 5. Chronic atrial fibrillation 6. Prior CVA 7. Hyperlipidemia 8. Chronic constipation 9. Depression COMPLICATIONS/CHIEF COMPLAINT: Renal Mass, Gross Hematuria. HISTORY OF PRESENT ILLNESS: Patient is a 70-year-old female who presented to the hospital after undergoing a robotic assisted laparoscopic right radical nephrectomy secondary to mass. Dr. Samuel of urology performed the procedure. Patient had an atrophic right kidney with a mass in it that required the p rocedure to be performed. Patient was seen in the PACU and did not have any complaints at this time. Patient has an extensive history of peripheral vascular disease with bilateral oijoc-zpa-uyff amputations. Dr. Samuel of urology requested hospitalist admit the patient to help manage the patient's multiple medical comorbidities.. HOSPITAL COURSE: Throughout the patient's hospitalization, patient did well. Patient's pain was adequately controlled after a day or so. Patient's creatinine did bump very mildly but did come back down to her baseline very quickly. Because the surgery was performed on prior to a holiday weekend, the patient was unable to be discharged back to [facility] until after the weekend was over. Patient did not have a bowel movement for the first few days which was thought to be secondary to increased opiate pain medication after the surgery. Patient's bowel meds were increased and on 11/25/2020, I walked into the room and the patient appeared very uncomfortable stating that she was having difficulty having a bowel movement. P atient was rolled in his suppositories can be placed however, it was evident that the patient had a stool ball in the rectal vault and needed manual disimpaction. Patient was manually disimpacted a very hard dry stool. Patient was able to have a softer bowel movement after the manual disimpaction and was feeling much better. Patient was going to be discharged on 11/26/2020 however, transportation fell through and the patient needed to stay in the hospital another night. On 11/27/2020, the patient had transportation and was discharged back to [facility] for her ongoing care. DISCHARGE MEDICATIONS: Please see below. ALLERGIES: Please see below. PHYSICAL EXAMINATION ON DISCHARGE: VITAL SIGNS: Please see below. General: Alert and oriented female patient who was laying in bed when I walked in the room. Patient did not appear to be in any acute distress. HEENT: Normocephalic, atraumatic, moist mucous membranes. Neck: No lymphadenopathy or thyromegaly Cardiac: Regular rate and rhythm, no murmurs, normal S1, normal S2 Pulm: Clear to auscultation bilaterally. No wheezes, rhonchi, rales Abd: Nondistended, nontender to palpation, incisions healing without any evidence of erythema or drainage, normal bowel sounds Ext: Bilateral uqggz-vrc-nqmw amputations with a foam dressing that is not soiled on the left stump LABORATORY DATA: Please see below. IMAGING: No imaging was performed during the admission PROGNOSIS: Fair ACTIVITY: As tolerated. DIET: Consistent carbohydrate DISCHARGE PLAN: Discharge to [facility] shelter facility DISPOSITION: O4 Xfer [facility]. DISCHARGE INSTRUCTIONS: 1. Follow-up with Dr. Melissa at [facility] 2. Follow-up with Dr. Samuel at [facility] urology as scheduled 3. Return to the emergency department if your symptoms worsen ITEMS TO FOLLOWUP ON ON OUTPATIENT: 1. Pathology of renal mass. DISCHARGE CONDITION: Stable. TIME SPENT ON DISCHARGE: 35 minutes. Vital Signs/I&Os Vital Signs Date Time Temp Pulse Resp B/P (MAP) Pulse Ox O2 Delivery O2 Flow Rate FiO2 11/27/20 08:07 84 160/72 11/27/20 06:00 98.0 19 98 Room Air 11/24/20 22:20 2.0 I&O- Last 24 Hours up to 6 AM 11/27/20 06:00 Intake Total 1104 ml Balance 1104 ml Laboratory Data Labs 24H Laboratory Tests 2 11/26/20 16:31: Bedside Glucose (Misc Panel) 160H 11/26/20 22:40: Bedside Glucose (Misc Panel) 174H 11/27/20 05:54: Nucleated Red Blood Cells % (auto) 0.0, Anion Gap 6L, Glomerular Filtration Rate > 60.0, Calcium Level 9.0, Magnesium Level 2.1 CBC/BMP Laboratory Tests 11/27/20 05:54 FSBS Laboratory Tests Test 11/26/20 16:31 11/26/20 22:40 Range/Units Bedside Glucose (Misc Panel) 160 174 80-115 MG/DL Discharge Medications Scheduled Acetaminophen (Tylenol Extra Strength) 500 Mg Tablet, 1,000 MG PO TID, (Reported) Allopurinol (Allopurinol) 100 Mg Tablet, 100 MG PO DAILY, (Reported) Amlodipine Besylate (Amlodipine Besylate) 5 Mg Tablet, 5 MG PO DAILY, (Reported) Aspirin (Aspirin) 81 Mg Tab.chew, 81 MG PO DAILY, (Reported) Cholecalciferol (Vitamin D3) (Vitamin D3) 1,000 Unit Tablet, 1,000 UNITS PO DAILY, (Reported) Docusate Sodium (Colace) 100 Mg Capsule, 100 MG PO DAILY, (Reported) Furosemide (Furosemide) 40 Mg Tab, 40 MG PO DAILY, (Reported) Gabapentin (Gabapentin) 100 Mg Capsule, 100 MG PO BID Insulin Detemir (Levemir) 100 Unit/1 Ml Vial, 20 UNITS SC QAM, (Reported) L.acidoph/L.bulg/B.bif/S.therm (Bacid Caplet) 1 Each Tablet, 1 TAB PO TID, (Reported) Latanoprost (Xalatan) 0.005% 2.5ML Drops, 1 DROP OU QHS, (Reported) Lisinopril (Lisinopril) 10 Mg Tablet, 10 MG PO BID, (Reported) Metoprolol Succinate (Metoprolol Succinate) 100 Mg Tab.er.24h, 100 MG PO DAILY, (Reported) Miconazole Nitrate (Anti-Fungal Powder) 71 Gm Powder, 1 DOSE TOP BID, (Reported) APPLY TO ABDOMINAL FOLD Multivitamin (Multivitamin) 1 Each Tablet, 1 TAB PO DAILY, (Reported) Omeprazole (Omeprazole) 20 Mg Capsule.dr, 20 MG PO DAILY, (Reported) Rivaroxaban (Xarelto) 20 Mg Tablet, 20 MG PO DAILY, (Reported) Ropinirole HCl (Ropinirole HCl) 0.5 Mg Tablet, 0.5 MG PO QHS, (Reported) Rosuvastatin Calcium (Crestor) 20 Mg Tab, 20 MG PO QHS, (Reported) Senna (Senna Lax) 8.6 Mg Tablet, 8.6 MG PO QHS, (Reported) Sertraline Hcl (Zoloft) 25 Mg Tablet, 75 MG PO QHS, (Reported) Tramadol HCl (Tramadol HCl) 50 Mg Tablet, 50 MG PO BID, (Reported) Scheduled PRN Bisacodyl (Bisacodyl) 10 Mg Supp.rect, 10 MG NH DAILY PRN for CONSTIPATION, (Reported) Magnesium Hydroxide (Milk of Magnesia) 400 Mg/5 Ml Oral.susp, 30 ML PO DAILY PRN for CONSTIPATION, (Reported) Sodium Phosphate,[place]-Dibasic (Enema) 133 Ml Enema, 1 OSMANY NH DAILY PRN for CONSTIPATION, (Reported) Allergies Coded Allergies: Penicillins (Verified Allergy, Intermediate, mouth swelling, 11/21/20) amoxicillin (Verified Allergy, Unknown, 11/21/20) cefazolin (Verified Allergy, Unknown, 11/21/20) ciprofloxacin (Verified Allergy, Unknown, 11/21/20) NATALI CARRILLO DO Nov 27, 2020 14:32
== END 2020-11-27 10:41 | DRG 657 ==
LOC: M OR 11-21 06:22 → M MSPAV 11-21 16:22
PROVIDERS: ADMIT Urology; ATTEND Urology
PROC: 0TJB8ZZ Inspection of Bladder, Via Natural or Artificial Opening Endoscopic (ICD-10-PCS; 2020-11-21)
PROC: 8E0W4CZ Robotic Assisted Procedure of Trunk Region, Percutaneous Endoscopic Approach (ICD-10-PCS; 2020-11-21)
PROC: 0TT04ZZ Resection of Right Kidney, Percutaneous Endoscopic Approach (ICD-10-PCS; principal; 2020-11-21 07:30)
DX: C64.1 Malignant neoplasm of right kidney, except renal pelvis (principal); I48.20 Chronic atrial fibrillation, unspecified; I69.351 Hemiplegia and hemiparesis following cerebral infarction affecting right dominant side; I73.9 Peripheral vascular disease, unspecified; Z89.511 Acquired absence of right leg below knee; Z89.612 Acquired absence of left leg above knee; I10 Essential (primary) hypertension; E11.42 Type 2 diabetes mellitus with diabetic polyneuropathy; F32.9 Major depressive disorder, single episode, unspecified; E78.5 Hyperlipidemia, unspecified; K21.9 Gastro-esophageal reflux disease without esophagitis; M10.9 Gout, unspecified; I25.10 Atherosclerotic heart disease of native coronary artery without angina pectoris; K59.09 Other constipation; Z95.828 Presence of other vascular implants and grafts; Z87.891 Personal history of nicotine dependence; Z79.82 Long term (current) use of aspirin; Z79.84 Long term (current) use of oral hypoglycemic drugs; Z79.899 Other long term (current) drug therapy; Z88.0 Allergy status to penicillin; Z88.1 Allergy status to other antibiotic agents; Z66 Do not resuscitate

== ENCOUNTER → 2020-11-13 | Outpatient (REF) | payer MEDICARE, MEDICAID ==
[2020-11-13 11:57] LABS: BASO # 0.1 10^3/uL (0.0-0.2); BASO % 0.8 % (0.0-1.0); EOS # 0.2 10^3/uL (0.0-0.5); EOS % 2.1 % (0.0-3.0); HEMATOCRIT 37.5 % (36.0-47.0); HEMOGLOBIN 11.6 g/dl (12.0-15.5); LYMPH # 1.9 10^3/uL (1.5-5.0); LYMPH % 23.9 % (24.0-44.0); MEAN CORPUSCULAR HEMOGLOBIN 28.2 pg (27.0-33.0); MEAN CORPUSCULAR HGB CONC 30.9 g/dl (32.0-36.5); MONO # 0.5 10^3/uL (0.0-0.8); MONO % 6.2 % (2.0-8.0); NEUTROPHILS # 5.1 10^3/uL (1.5-8.5); NEUTROPHILS % 66.4 % (36.0-66.0); PLATELET COUNT, AUTOMATED 313 10^3/uL (150-450); RED BLOOD COUNT 4.12 10^6/uL (4.00-5.40); WHITE BLOOD COUNT 7.7 10^3/uL (4.0-10.0)
== END ==
PROVIDERS: ATTEND Internal Medicine
DX: Z01.812 Encounter for preprocedural laboratory examination (principal); Z79.899 Other long term (current) drug therapy

== ENCOUNTER → 2020-11-13 | Outpatient (REF) | payer MEDICARE, MEDICAID ==
[2020-11-13 12:05] LABS: INR 1.78; PROTHROMBIN TIME 21.1 SECONDS (12.7-14.5)
[2020-11-13 12:06] LABS: PARTIAL THROMBOPLASTIN TIME 53.1 SECONDS (25.9-37.0)
== END ==
PROVIDERS: ATTEND Internal Medicine
DX: Z01.812 Encounter for preprocedural laboratory examination (principal); Z79.899 Other long term (current) drug therapy
CPT/HCPCS: 36415; 83880; 85025; 85610; 85730; U0002

== ENCOUNTER → 2020-11-16 | Outpatient (CLI) | payer MEDICARE, MEDICAID | LOC: M LAB 11:43 | PROVIDERS: ATTEND Internal Medicine | DX: Z01.812 Encounter for preprocedural laboratory examination (principal); Z20.822 Contact with and (suspected) exposure to COVID-19 ==

== ENCOUNTER → 2020-11-29 | Outpatient (REF) | payer MEDICARE, MEDICAID ==
[2020-11-29 10:29] LABS: HEMATOCRIT 36.4 % (36.0-47.0); HEMOGLOBIN 11.1 g/dl (12.0-15.5); MEAN CORPUSCULAR HEMOGLOBIN 28.4 pg (27.0-33.0); MEAN CORPUSCULAR HGB CONC 30.5 g/dl (32.0-36.5); MEAN CORPUSCULAR VOLUME 93.1 fl (80.0-96.0); PLATELET COUNT, AUTOMATED 346 10^3/uL (150-450); RED BLOOD COUNT 3.91 10^6/uL (4.00-5.40); WHITE BLOOD COUNT 9.9 10^3/uL (4.0-10.0)
[2020-11-29 11:02] LABS: BLOOD UREA NITROGEN 20 MG/DL (7-18); CALCIUM LEVEL 9.1 MG/DL (8.8-10.2); CARBON DIOXIDE LEVEL 26 MEQ/L (21-32); CHLORIDE LEVEL 104 MEQ/L (98-107); CREATININE FOR GFR 0.75 MG/DL (0.55-1.30); GLOMERULAR FILTRATION RATE > 60.0 (>45); GLUCOSE, FASTING 209 MG/DL (70-100); POTASSIUM SERUM 4.4 MEQ/L (3.5-5.1); SODIUM LEVEL 137 MEQ/L (136-145)
[2020-11-29 11:34] LABS: ERYTHROCYTE SEDIMENTATION RATE 76 mm/hr (0-30)
== END ==
PROVIDERS: ATTEND Internal Medicine
DX: E11.9 Type 2 diabetes mellitus without complications (principal)

== ENCOUNTER → 2020-12-11 | Outpatient (REF) | payer MEDICARE, MEDICAID ==
[2020-12-11 10:44] LABS: HEMATOCRIT 37.8 % (36.0-47.0); HEMOGLOBIN 11.4 g/dl (12.0-15.5); MEAN CORPUSCULAR HEMOGLOBIN 27.5 pg (27.0-33.0); MEAN CORPUSCULAR HGB CONC 30.2 g/dl (32.0-36.5); MEAN CORPUSCULAR VOLUME 91.1 fl (80.0-96.0); PLATELET COUNT, AUTOMATED 279 10^3/uL (150-450); RED BLOOD COUNT 4.15 10^6/uL (4.00-5.40); WHITE BLOOD COUNT 6.7 10^3/uL (4.0-10.0)
[2020-12-11 11:11] LABS: BLOOD UREA NITROGEN 19 MG/DL (7-18); CALCIUM LEVEL 9.1 MG/DL (8.8-10.2); CARBON DIOXIDE LEVEL 25 MEQ/L (21-32); CHLORIDE LEVEL 103 MEQ/L (98-107); CREATININE FOR GFR 0.73 MG/DL (0.55-1.30); GLOMERULAR FILTRATION RATE > 60.0 (>45); GLUCOSE, FASTING 265 MG/DL (70-100); POTASSIUM SERUM 4.7 MEQ/L (3.5-5.1); SODIUM LEVEL 138 MEQ/L (136-145)
== END ==
PROVIDERS: ATTEND Internal Medicine
DX: E11.9 Type 2 diabetes mellitus without complications (principal)

== ENCOUNTER → 2020-12-17 | Outpatient (REF) | payer MEDICARE, MEDICAID ==
[2020-12-17 15:17] LABS: HEMATOCRIT 34.4 % (36.0-47.0); HEMOGLOBIN 10.7 g/dl (12.0-15.5); MEAN CORPUSCULAR HEMOGLOBIN 27.7 pg (27.0-33.0); MEAN CORPUSCULAR HGB CONC 31.1 g/dl (32.0-36.5); MEAN CORPUSCULAR VOLUME 89.1 fl (80.0-96.0); PLATELET COUNT, AUTOMATED 291 10^3/uL (150-450); RED BLOOD COUNT 3.86 10^6/uL (4.00-5.40); WHITE BLOOD COUNT 7.8 10^3/uL (4.0-10.0)
[2020-12-17 15:30] LABS: BLOOD UREA NITROGEN 17 MG/DL (7-18); C REACTIVE PROTEIN QUANTITATIV 2.42 MG/DL (0.00-0.30); CALCIUM LEVEL 8.8 MG/DL (8.8-10.2); CARBON DIOXIDE LEVEL 25 MEQ/L (21-32); CHLORIDE LEVEL 102 MEQ/L (98-107); CREATININE FOR GFR 0.69 MG/DL (0.55-1.30); GLOMERULAR FILTRATION RATE > 60.0 (>45); GLUCOSE, FASTING 239 MG/DL (70-100); POTASSIUM SERUM 4.9 MEQ/L (3.5-5.1); SODIUM LEVEL 138 MEQ/L (136-145)
[2020-12-17 15:46] LABS: ERYTHROCYTE SEDIMENTATION RATE 54 mm/hr (0-30)
== END ==
PROVIDERS: ATTEND Internal Medicine
DX: T87.89 Other complications of amputation stump (principal); Z89.612 Acquired absence of left leg above knee

== ENCOUNTER → 2020-12-18 | Outpatient (CLI) | payer MEDICARE, MEDICAID ==
[~2020-12-18] MED LIST changes: +ISOVUE-370 76% 100ML VIAL As Ordered ONE
--- NOTE | 2020-12-18 10:17 | REP ---
INDICATION: LT LOWER EXT H/O PVD. COMPARISON: Comparison study September 13, 2020. TECHNIQUE: Helical scanning is acquired following the intravenous injection of 100 mL of Isovue 370. 3 mm axial images are re-formatted. Coronal and sagittal MPR and coronal MIP images are generated. In addition, surface rendered 3D images are generated. FINDINGS: There is good opacification of the arterial tree. The suprarenal abdominal aorta is normal in caliber with mild atherosclerotic calcification. There is mild calcific plaquing at the origin of the celiac axis without significant narrowing. There is high-grade stenosis at the origin of the SMA however, 80% due to calcific plaquing. The SMA is otherwise patent. The inferior mesenteric artery origin is patent. There is some plaquing at the origin of the left main renal artery. The right kidney is surgically absent. The infrarenal abdominal aorta is developmentally small in caliber and heavily calcified. No focal aortic stenosis is seen. The right common iliac artery is nearly circumferentially calcified and moderately narrowed as result. The left common iliac artery shows mild calcification but no high-grade stenosis. The right external iliac artery is occluded at its origin. The right profundal femoral artery branches are opacified indicating collateral flow. There is an occluded stent in the proximal superficial femoral artery. There is a mid superficial femoral artery stent on the right as well. No flow is observed in the right superficial femoral artery. There is some collateral flow in distal of profundal femoral artery branches on the right. Patient is status post bilateral AKA amputation. On the left, the external iliac artery is patent. Internal iliac arteries appear to be patent bilaterally. The left common femoral artery is occluded. There is an occluded fem-fem bypass graft in the left lower extremity. No flow is observed in this. There is opacification of profundal femoral artery branches extending into the distal thigh. IMPRESSION: The right external iliac artery is occluded from its origin. Only profundal femoral artery branches are observed to be opacified in the right thigh. Similarly, the left common femoral artery is occluded at its origin as is the left fem-fem bypass graft. There is some flow in profundal femoral artery branches in the left thigh. <Electronically signed by Deshaun Rogers > 12/18/20 1414
== END ==
LOC: M RAD 08:39
PROVIDERS: ATTEND Physician Assistant
DX: I73.9 Peripheral vascular disease, unspecified (principal); Z89.612 Acquired absence of left leg above knee
CPT/HCPCS: 75635; Q9967

== ENCOUNTER → 2020-12-24 | Outpatient (POV) | payer MEDICARE, MEDICAID ==
[~2020-12-24] VITALS: Ht 152.4 cm; Wt 84.0 kg
[~2020-12-24] MED LIST changes: -ISOVUE-370 76% 100ML VIAL As Ordered ONE
[2020-12-24 14:02] VITALS: BP 164/72
--- NOTE | 2020-12-26 15:45 | IRCOV ---
[facility] IR Consult Office Visit IR Consult Office Visit DATE: Dec 24, 2020 REASON FOR CONSULTATION/CHIEF COMPLAINT: Nonhealing wound on left above-knee amputation site. HISTORY OF PRESENT ILLNESS: 70-year-old female with prior history of stroke 15 years ago with right arm paralysis, diabetes, hypertension and hyperlipidemia and bilateral lower extremity above-knee amputations, presents for nonhealing ulcer over the left AKA stump. Patient had left lower extremity angiography performed by Dr. Martinez in December 2019 for rest pain. At that time she had atherosclerotic disease but patent left superficial femoral artery, profunda femoris and patent popliteal artery. Patent three-vessel runoff to the left foot with a long segment atherosclerotic disease in the posterior tibial artery. This was followed with femoropopliteal bypass in May 2020. On the CTA in May 2020, the femoropopliteal bypass as well as the [place] SFA were patent but there was a focal occlusion in the popliteal artery with reconstitution of three-vessel runoff to the left foot. After this, my understanding is that, the bypass graft failed as determined clinically by ongoing rest pain in the left leg and discoloration of the leg. S he then had an above-knee amputation performed by Dr. Martinez in June 2020. Post AKA, there was ongoing ischemia and nonhealing of the stump site and she had 3 revision AKA's after that, leaving her with a very short stump. Patient has a wound on the left lower extremity AKA stump which is not healing. She is referred from wound care. Her right AKA was performed some years prior and has healed. She complains of rest pain in the left lower limb. She denies any pain or discomfort in the right lower limb. Patient denies chest pain, shortness of breath, orthopnea or paroxysmal nocturnal dyspnea. ALLERGIES: Please see below. HOME MEDICATIONS: Please see below. PAST MEDICAL HISTORY: CVA with right upper extremity paralysis Chronic AF Peripheral artery disease with bilateral AKA Left femoropopliteal bypass Hypertension Diabetes Depression Hyperlipidemia GERD Heart failure Gout Restless leg syndrome Coronary artery disease Constipation PAST SURGICAL HISTORY: Zenopatch angioplasty of the left femoral to above-knee popliteal artery bypass with ringed PTFE. Bilateral lower extremity angioplasties. Right femoral-tibial artery bypass 08/2016. Right varicose vein stripping Right AKA Left carotid endarterectomy Left nephrectomy Left above-knee amputation 06/28/2020 FAMILY HISTORY: Noncontributory. SOCIAL HISTORY: Ex-smoker. Quit 15 years ago. Denies alcohol or drugs. Nonambulatory. Lives in a senior living facility. REVIEW OF SYSTEMS: Otherwise negative. PHYSICAL EXAMINATION: VITAL SIGNS: Please see below. GENERAL APPEARANCE: Comfortable at rest. HEENT: No scleral icterus. RESPIRATORY: Normal breathing at rest. CARDIOVASCULAR: Normal rate. ABDOMEN: Nontender. EXTREMITIES: Left lower extremity. AKA. Tender black wound at the left AKA s tump site. Left thigh pink in color. Warm to touch. Right lower extremity: AKA. No wounds. Skin pink in color. Warm to touch. NEUROLOGICAL: Alert and oriented. PSYCHIATRIC: Appropriate to circumstance. LABORATORY DATA: 12/25/2020 hemoglobin 10.9 hematocrit 35.2 WBC 7.8 platelets 300. Sodium 137 potassium 4.4 BUN 18 creatinine 0.8 GFR greater than 60 Imaging: I personally reviewed the CTA abdomen with bilateral lower extremity runoff performed 12/18/2020. There is right common iliac and external iliac occlusion. There is reconstitution of the proximal right SFA and profunda femoris. Mid and distal SFA is occluded. Occluded right thigh bypass. Left common iliac and external iliac artery are patent. There is complete occlusion of the left common femoral and superficial femoral artery. Occluded left thigh bypass graft. No significant hypertrophy of the profunda branches. There is less vascular flow to the left thigh compared to the right thigh. 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 Given chronic total occlusion of the right external iliac and common iliac artery, right groin access to attempt up and over recanalization of the left common femoral/SFA is not feasible. Given complete left common femoral artery occlusion and no SFA, left antegrade access and attempt at SFA recanalization is also going to be futile. There may be options for a left groin cutdown by vascular surgery and attempt at recanalization of the [place] SFA. I do not know if this is going to be feasible or practical. I discussed the possibility of referring to vascular surgery for further opinion on this. I spent 30 minutes reviewing patient's records, imaging and in consultation with the patient. Thank you for this referral. CC Dr. Ambrosio Allergies Coded Allergies: Penicillins (Verified Allergy, Intermediate, mouth swelling, 11/21/20) amoxicillin (Verified Allergy, Unknown, 11/21/20) cefazolin (Verified Allergy, Unknown, 11/21/20) ciprofloxacin (Verified Allergy, Unknown, 11/21/20) Home Medications Scheduled Acetaminophen (Tylenol Extra Strength), 1,000 MG PO TID, (Reported) Allopurinol (Allopurinol), 100 MG PO DAILY, (Reported) Amlodipine Besylate (Amlodipine Besylate), 5 MG PO DAILY, (Reported) Aspirin (Aspirin), 81 MG PO DAILY, (Reported) Cholecalciferol (Vitamin D3) (Vitamin D3), 1,000 UNITS PO DAILY, (Reported) Docusate Sodium (Colace), 100 MG PO DAILY, (Reported) Furosemide (Furosemide), 40 MG PO DAILY, (Reported) Gabapentin (Gabapentin), 100 MG PO BID Insulin Detemir (Levemir), 20 UNITS SC QAM, (Reported) L.acidoph/L.bulg/B.bif/S.therm (Bacid Caplet), 1 TAB PO TID, (Reported) Latanoprost (Xalatan), 1 DROP OU QHS, (Reported) Lisinopril (Lisinopril), 10 MG PO BID, (Reported) Metoprolol Succinate (Metoprolol Succinate), 100 MG PO DAILY, (Reported) Miconazole Nitrate (Anti-Fungal Powder), 1 DOSE TOP BID, (Reported) Multivitamin (Multivitamin), 1 TAB PO DAILY, (Reported) Omeprazole (Omeprazole), 20 MG PO DAILY, (Reported) Rivaroxaban (Xarelto), 20 MG PO DAILY, (Reported) Ropinirole HCl (Ropinirole HCl), 0.5 MG PO QHS, (Reported) Rosuvastatin Calcium (Crestor), 20 MG PO QHS, (Reported) Senna (Senna Lax), 8.6 MG PO QHS, (Reported) Sertraline Hcl (Zoloft), 75 MG PO QHS, (Reported) Tramadol HCl (Tramadol HCl), 50 MG PO BID, (Reported) Scheduled PRN Bisacodyl (Bisacodyl), 10 MG [place] DAILY PRN for CONSTIPATION, (Reported) Magnesium Hydroxide (Milk of Magnesia), 30 ML PO DAILY PRN for CONSTIPATION, (Reported) Sodium Phosphate,Hall-Dibasic (Enema), 1 OSMANY [place] DAILY PRN for CONSTIPATION, (Reported) VS, I&O, 24H, Fishbone Vital Signs/I&O Vital Signs Date Time Temp Pulse Resp B/P (MAP) Pulse Ox O2 Delivery O2 Flow Rate FiO2 12/24/20 14:02 97.1 78 20 164/72 (102) 97 Room Air TANK LOCKHART MD Dec 26, 2020 15:45
== END ==
LOC: M IRPOV 13:50
PROVIDERS: ATTEND Radiology Diagnostic Radiology
DX: T87.89 Other complications of amputation stump (principal); I69 Sequelae of cerebrovascular disease; E11.9 Type 2 diabetes mellitus without complications; E78.5 Hyperlipidemia, unspecified; I10 Essential (primary) hypertension; I25.10 Atherosclerotic heart disease of native coronary artery without angina pectoris; I48.20 Chronic atrial fibrillation, unspecified; I50.9 Heart failure, unspecified; I70.92 Chronic total occlusion of artery of the extremities; I73.9 Peripheral vascular disease, unspecified; Z87.891 Personal history of nicotine dependence; Z89.511 Acquired absence of right leg below knee; Z89.512 Acquired absence of left leg below knee; Z90.5 Acquired absence of kidney
CPT/HCPCS: G0463 ×2

== ENCOUNTER → 2020-12-25 | Outpatient (REF) | payer MEDICARE, MEDICAID ==
[2020-12-25 11:10] LABS: HEMATOCRIT 35.2 % (36.0-47.0); HEMOGLOBIN 10.9 g/dl (12.0-15.5); MEAN CORPUSCULAR HEMOGLOBIN 27.7 pg (27.0-33.0); MEAN CORPUSCULAR VOLUME 89.6 fl (80.0-96.0); PLATELET COUNT, AUTOMATED 300 10^3/uL (150-450); RED BLOOD COUNT 3.93 10^6/uL (4.00-5.40); WHITE BLOOD COUNT 7.8 10^3/uL (4.0-10.0)
[2020-12-25 14:20] LABS: ALT/SGPT 40 U/L (12-78); BILIRUBIN,TOTAL 0.2 MG/DL (0.2-1.0); BLOOD UREA NITROGEN 18 MG/DL (7-18); CARBON DIOXIDE LEVEL 24 MEQ/L (21-32); CHLORIDE LEVEL 103 MEQ/L (98-107); CHOLESTEROL LEVEL 182 MG/DL (<200); CHOLESTEROL RISK RATIO 4.333 (<5); GLOMERULAR FILTRATION RATE > 60.0 (>45); GLUCOSE, FASTING 340 MG/DL (70-100); HDL CHOLESTEROL 42 MG/DL (>40); LDL CHOLESTEROL 81 MG/DL (<100); NON-HDL-C 140 MG/DL; POTASSIUM SERUM 4.4 MEQ/L (3.5-5.1); SODIUM LEVEL 137 MEQ/L (136-145); TRIGLYCERIDES LEVEL 296 MG/DL (<150)
[2020-12-25 14:27] LABS: TOTAL 25(OH) VITAMIN D 30.5 NG/ML (30.0-100.0); VITAMIN B12 LEVEL 604 PG/ML (247-911)
[2020-12-25 15:34] LABS: HEMOGLOBIN A1c 8.3 %
== END ==
PROVIDERS: ATTEND Internal Medicine
DX: E11.9 Type 2 diabetes mellitus without complications (principal); Z79.899 Other long term (current) drug therapy

== ENCOUNTER → 2021-01-01 | Outpatient (REF) | payer MEDICARE, MEDICAID ==
[2021-01-01 10:26] LABS: HEMOGLOBIN 11.1 g/dl (12.0-15.5); MEAN CORPUSCULAR HEMOGLOBIN 27.6 pg (27.0-33.0); MEAN CORPUSCULAR HGB CONC 30.8 g/dl (32.0-36.5); MEAN CORPUSCULAR VOLUME 89.6 fl (80.0-96.0); PLATELET COUNT, AUTOMATED 314 10^3/uL (150-450); RED BLOOD COUNT 4.02 10^6/uL (4.00-5.40); WHITE BLOOD COUNT 7.1 10^3/uL (4.0-10.0)
[2021-01-01 10:58] LABS: BLOOD UREA NITROGEN 19 MG/DL (7-18); CALCIUM LEVEL 8.9 MG/DL (8.8-10.2); CARBON DIOXIDE LEVEL 26 MEQ/L (21-32); CHLORIDE LEVEL 105 MEQ/L (98-107); CREATININE FOR GFR 0.75 MG/DL (0.55-1.30); GLOMERULAR FILTRATION RATE > 60.0 (>45); GLUCOSE, FASTING 217 MG/DL (70-100); POTASSIUM SERUM 4.8 MEQ/L (3.5-5.1); SODIUM LEVEL 138 MEQ/L (136-145)
== END ==
PROVIDERS: ATTEND Internal Medicine
DX: E11.9 Type 2 diabetes mellitus without complications (principal)

== ENCOUNTER → 2021-01-13 | Outpatient (REF) | payer MEDICARE, MEDICAID ==
[2021-01-13 10:35] LABS: BLOOD UREA NITROGEN 21 MG/DL (7-18); CALCIUM LEVEL 9.4 MG/DL (8.8-10.2); CARBON DIOXIDE LEVEL 25 MEQ/L (21-32); CHLORIDE LEVEL 103 MEQ/L (98-107); CREATININE FOR GFR 0.72 MG/DL (0.55-1.30); GLOMERULAR FILTRATION RATE > 60.0 (>45); GLUCOSE, FASTING 227 MG/DL (70-100); POTASSIUM SERUM 4.6 MEQ/L (3.5-5.1); SODIUM LEVEL 138 MEQ/L (136-145)
== END ==
PROVIDERS: ATTEND Internal Medicine
DX: M10.9 Gout, unspecified (principal)

== ENCOUNTER → 2021-02-06 | Outpatient (REF) | payer MEDICARE, MEDICAID | PROVIDERS: ATTEND Internal Medicine | DX: Z01.89 Encounter for other specified special examinations (principal) ==